=== PATIENT | male | born 1975 | race Caucasian/White ===

== ENCOUNTER → 2024-01-09 | Outpatient (CLI) | payer MEDICAID, SELFPAY | END | disposition home or self-care (01) | PROVIDERS: PCP Internal Medicine; Referring Provider Internal Medicine; Visit Provider Internal Medicine | DX: R29.818 Other symptoms and signs involving the nervous system (principal); G47.10 Hypersomnia, unspecified | CPT/HCPCS: 95806 ==

== ENCOUNTER → 2024-01-10 | Outpatient (CLI) | payer MEDICAID, SELFPAY | END | disposition home or self-care (01) | PROVIDERS: PCP Internal Medicine; Referring Provider Anesthesiology Pain Medicine; Visit Provider Anesthesiology Pain Medicine | DX: Z75.2 Other waiting period for investigation and treatment (principal) ==

== ENCOUNTER 2024-01-21 11:56 | Emergency (ER) | payer MEDICAID, SELFPAY ==
[2024-01-21 11:59] VITALS: BP 151/78; PULSE 72; RESP 14; TEMP 36.1; O2SAT 98
--- NOTE | 2024-01-21 14:28 | RAD_ITS ---
STUDY: X-RAY - LEFT SHOULDER REASON FOR EXAM: Male, 48 years old. Shoulder pain. TECHNIQUE: 4 view(s) of the shoulder. COMPARISON: None. FINDINGS: Normal glenohumeral articulation. Normal acromioclavicular joint. Normal acromion. Normal humeral head and visualized proximal humerus. The soft tissue structures are unremarkable. Normal visualized pulmonary apex. RAD/Shoulder min 2 Views IMPRESSION: Normal x-ray examination of the shoulder. Electronically Signed: Mateusz Fay MD at 14:58 EDT ,
--- NOTE | 2024-01-21 14:43 | EDS_ITS ---
HPI History of Present Illness Chief Complaint: Upper Extremity Injury [facility] Medical History GERD (gastroesophageal reflux disease) Cataracts, bilateral Hypocalcemia Hepatitis IBS (irritable bowel syndrome) Peritoneal dialysis catheter site infection CAD (coronary artery disease) Peritonitis Recurrent UTI Urinary retention Neuropathy COPD (chronic obstructive pulmonary disease) Hyperlipidemia due to type 2 diabetes mellitus Hypertension Dialysis patient Diabetes Home Medications ?Medication ?Instructions ?Recorded ?Last Taken ?Type diphenhydramine HCl 25 mg capsule 25 mg PO QHS 12/17/23 Unknown History (Banophen) docusate sodium 100 mg capsule 100 mg PO BID 12/17/23 Unknown History fluticasone 250 mcg-salmeterol 50 1 ea inhalation BID 12/17/23 Unknown History mcg/dose blistr powdr for inhalation (Advair Diskus) fluticasone propionate 50 intranasal 12/17/23 Unknown History mcg/actuation nasal spray,suspension gabapentin 300 mg capsule 300 mg PO QDAY 12/17/23 Unknown History handicap placard #1 ea 12/17/23 Unknown Rx insulin glargine 100 unit/mL (3 unit subcut 12/17/23 Unknown History mL) subcutaneous pen (Lantus Solostar U-100 Insulin) polyethylene glycol 3350 17 g PO QDAY 12/17/23 Unknown History gram/dose oral powder sodium chloride 0.65 % nasal spray spray intranasal 12/17/23 Unknown History aerosol (Deep Sea Nasal) albuterol sulfate 90 mcg/actuation 1 puff inhalation Q6-8H PRN 12/24/23 Unknown Rx aerosol inhaler shortness of breath or wheezing #8.5 grams amlodipine 10 mg tablet 10 mg PO QDAY #90 tabs 12/24/23 Unknown Rx aspirin 81 mg tablet,delayed 81 mg PO QDAY #90 tabs 12/24/23 Unknown Rx release atorvastatin 40 mg tablet 40 mg PO QDAY #90 tabs 12/24/23 Unknown Rx cyclobenzaprine 10 mg tablet 10 mg PO QHS #90 tabs 12/24/23 Unknown Rx lidocaine 4 % topical patch 1 patch topical DAILY PRN pain #30 12/24/23 Unknown Rx (Lidocaine Pain Relief) ea magnesium oxide 400 mg (241.3 mg 400 mg PO TID #90 tabs 12/24/23 Unknown Rx magnesium) tablet melatonin 5 mg tablet 5 mg PO QHS #90 tabs 12/24/23 Unknown Rx ondansetron HCl 4 mg tablet 4 mg PO DAILY #90 tabs 12/24/23 Unknown Rx pantoprazole 40 mg tablet,delayed 40 mg PO QDAY #90 tabs 12/24/23 Unknown Rx release tamsulosin 0.4 mg capsule 0.4 mg PO QDAY #90 caps 12/24/23 Unknown Rx ciprofloxacin HCl 250 mg tablet 250 mg PO QDAY #30 tabs 01/06/24 Unknown Rx acetaminophen 650 mg 650 mg PO Q8H PRN pain #90 tabs 01/09/24 Unknown Rx tablet,extended release (Tylenol Arthritis Pain) flash glucose scanning reader #1 ea 01/09/24 Unknown Rx (FreeStyle Bianca 2 [place]) flash glucose sensor (FreeStyle #1 ea 01/09/24 Unknown Rx Bianca 2 Sensor kit) miscellaneous medical supply 1 ea miscellaneous DIRECTED #6 01/09/24 Unknown Rx ea miscellaneous medical supply 1 ea miscellaneous DIRECTED 01/09/24 Unknown Rx bowel incontinence #1 ea incontinence pad, liner, disp #80 ea 01/14/24 Unknown Rx diclofenac sodium 1 % topical gel 2 g topical Q8H PRN PRN pain 7 01/21/24 Unknown Rx (Voltaren Arthritis Pain) days #100 grams Allergy/AdvReac Type Severity Reaction Status Date / Time No Known Allergies Allergy Verified 01/21/24 11:58 Family History Father Heart disease Hypertension Hyperlipidemia Grandmother Heart disease Diabetes Mother MVA (motor vehicle accident) Brother Cancer lymphoma Surgical History S/P bilateral BKA (below knee amputation) Port-A-Cath in place S/P arteriovenous (AV) fistula creation Hx of CABG Amputation leg, bilat H/O local excision of skin lesion H/O hernia repair Social History adopted: No household members: family and other details: niece and niece's number of children: 4 current occupational status: disabled pets and animals: Yes pets and animals: cat(s) and dog(s) Smoking Status: Former smoker quit date: 07/15/18 pack-years: 70 Tobacco: How many years used: 35 Electronic Cigarette Use: not used alcohol intake: former details: 07/15/2018 substance use type: does not use, former substance user Date of last use: 07/15/2006 and crack/cocaine frequency: does not exercise do you feel safe at home: Yes EXAM Physical Exam Const Vital Signs: 01/21/24 11:59 Temperature 96.9 F L Temperature Source Temporal Pulse Rate 72 Respiratory Rate 14 Blood Pressure 151/78 H Blood Pressure Mean 102 Pulse Ox 98 Oxygen Delivery Method Room Air [facility] MDM Narrative Medical decision making narrative: HISTORY OF PRESENT ILLNESS: 48-year-old male presents with concern for left shoulder pain. No shoulder pain for last 5 years. Notes having MRI done as an outpatient several months ago which showed several rotator cuff tears. Notes he has not been able to get into an orthopedic surgeon. REVIEW OF SYSTEMS: Pertinent positives: Left shoulder pain Pertinent negatives: Numbness, tingling, loss sensation or neck pain PHYSICAL EXAM: Nursing triage notes reviewed, Vital signs reviewed Constitutional: please see mdm HENT: MMM Eyes: Pupils equal round and reactive to light, Extraocular muscles intact Neck: No stridor, no JVD, full neck ROM Lungs: Clear to auscultation, No wheezing or rales. No increased work of breathing, no conversational dyspnea, no accessory muscle use, no nasal flaring. No respiratory distress noted Heart: Regular rate and rhythm, No murmurs, No rubs and No gallops, 2+ distal pulses (radial, femoral, posterior tibial) in all extremities Abdomen: Soft, there is no tenderness, rigidity, rebound or guarding, no obvious peritoneal signs, no palpable pulsatile abdominal masses, no auscultated abdominal bruit : No CVAT Extremities: No edema Neuro: Intact 5/5 strength with ok sign (median), intact finger abduction (ulnar) intact wrist extension (radial n). Intact sensation in the radial, ulnar, and median nerve distributions. Intact axiallary nerve function. Skin: No rash or lesions noted MEDICAL DECISION MAKING: Chief Complaint: Shoulder pain External records reviewed: Prescribed tramadol the beginning of November Factors affecting care: Hypertension, ESRD, bilateral below-knee amputation MDM Narrative: Patient was initially hemodynamically stable, afebrile and nontoxic-appearing. Exam without focal neurologic deficits, no obvious step-offs deformities, there is some weakness noted in shoulder abduction, flexion extension consistent with likely rotator cuff etiology. Patient had no fever, no limited range of motion, no palpable joint effusion or warmth to suggest septic arthritis. I considered the following differential diagnosis: Shoulder fracture, dislocation, cervical to colopathy, musculoskeletal injury, septic arthritis ALL IMAGES (IF OBTAINED) HAVE BEEN PERSONALLY REVIEWED AND INTERPRETED BY MYSELF. X-ray of the patient's left shoulder was read reviewed myself shows no evidence of obvious bony fracture or dislocation. No clear etiology with the patient's complaint could be ascertained in the emergency department specifically no evidence of septic arthritis, shoulder fracture or dislocation. The patient and/or family, caregivers express understanding. The patient and/or family, caregivers agrees with the plan. Shared decision making: I will have a discussion with the patient and or visitors regarding risk/benefits of further testing or admission. They will be made aware of of the risk/benefits inherent in this decision they will be given the opportunity to voice understanding. Total critical care time today provided was at least 0 minutes. This excludes separately billable procedures. Critical care time (if documented) is secondary to the patient having high probability of clinically significant/life threatening deterioration in the patient's condition which required my urgent intervention. Impression: 1. Acute on chronic left shoulder pain 2. History of end-stage renal disease 3. Rotator cuff tendinopathy Dispo: Discharge home This note was generated with [employer] dictation software. It may contain incorrect words, spelling, and punctuation that were not noted in review of the chart prior to signing. Discharge Plan Triage Chief Complaint: Upper Extremity Injury ED Provider: [place] Dx/Rx/DC Orders Instructions: ED Shoulder Pain, Uncertain Cause Prescriptions: New diclofenac sodium [Voltaren Arthritis Pain] 1 % gel 2 g topical Q8H PRN PRN (Reason: pain) 7 Days Qty: 100 0RF No Action fluticasone propion-salmeterol [Advair Diskus] 250-50 mcg/dose blister with device 1 ea inhalation BID Deep Sea Nasal 0.65 % aerosol,spray intranasal Patient Comments: [NO ORIGINAL SIG] diphenhydramine HCl [Banophen] 25 mg capsule 25 mg PO QHS docusate sodium 100 mg capsule 100 mg PO BID insulin glargine [Lantus Solostar U-100 Insulin] 100 unit/mL (3 mL) insulin pen subcut fluticasone propionate 50 mcg/actuation spray,suspension intranasal Patient Comments: [NO ORIGINAL SIG] gabapentin 300 mg capsule 300 mg PO QDAY (DME) handicap placard See Rx Instructions .ROUTE .MEDSUPPLY Qty: 1 0RF Rx Instructions: Length of time: 5 years Impaired physical mobility: Z74.09 polyethylene glycol 3350 17 gram/dose powder PO QDAY (DME) FreeStyle Bianca 2 Sensor Kit See Rx Instructions .Route Qty: 1 5RF Rx Instructions: 1-2 times daily and as needed (DME) FreeStyle Bianca 2 [place] Misc See Rx Instructions .Route Qty: 1 5RF Rx Instructions: 1-2 times daily and as needed acetaminophen [Tylenol Arthritis Pain] 650 mg tablet extended release 650 mg PO Q8H PRN (Reason: pain) Qty: 90 1RF miscellaneous medical supply Kit 1 ea miscellaneous DIRECTED Qty: 1 0RF Rx Instructions: Bedpan Diagnosis: Fecal incontinence R15.9 miscellaneous medical supply Kit 1 ea miscellaneous DIRECTED Qty: 6 0RF Rx Instructions: Nicholas lift sling Diagnosis: Below-knee amputation of both lower extremities S88.111D/S88.112D albuterol sulfate 90 mcg/actuation HFA aerosol inhaler 1 puff inhalation Q6-8H PRN (Reason: shortness of breath or wheezing) Qty: 8.5 0RF amlodipine 10 mg tablet 10 mg PO QDAY Qty: 90 0RF aspirin 81 mg tablet,delayed release (DR/EC) 81 mg PO QDAY Qty: 90 0RF atorvastatin 40 mg tablet 40 mg PO QDAY Qty: 90 0RF cyclobenzaprine 10 mg tablet 10 mg PO QHS Qty: 90 0RF lidocaine [Lidocaine Pain Relief] 4 % adhesive patch,medicated 1 patch topical DAILY PRN (Reason: pain) Qty: 30 0RF magnesium oxide 400 mg (241.3 mg magnesium) tablet 400 mg PO TID Qty: 90 0RF melatonin 5 mg tablet 5 mg PO QHS Qty: 90 0RF ondansetron HCl 4 mg tablet 4 mg PO DAILY Qty: 90 0RF Rx Instructions: Patient takes before dialysis; Saturday, Saturday, Saturday pantoprazole 40 mg tablet,delayed release (DR/EC) 40 mg PO QDAY Qty: 90 0RF tamsulosin 0.4 mg capsule 0.4 mg PO QDAY Qty: 90 0RF ciprofloxacin HCl 250 mg tablet 250 mg PO QDAY Qty: 30 0RF (DME) incontinence pad, liner, disp Pad See Rx Instructions .Route Qty: 80 0RF Rx Instructions: As directed Primary Care Provider: Bella Oneal Referrals: Vida Smith MD [Med Staff - Active Staff] - Activity Restrictions/Additional Instructions: Thank you for trusting us with your care today! Please take Tylenol (2 pills, 650 mg), ibuprofen (2 pills, 400 mg) every 6 hours as needed for pain and fever control. Please return to the emergency department if your symptoms change or worsen. Please follow with your primary care physician for further outpatient evaluation and management. Print Language: Croatian Disposition Disposition: Home, Self Care Discharge Date/Time: 01/21/24 16:28
[2024-01-21 14:58] VITALS: O2SAT 93
[2024-01-21] MEDS: Ibuprofen 200 MG Tablet 400 MG PO (15:22)
[2024-01-21] MEDS: oxyCODONE 5 MG Tablet PO (15:23)
[2024-01-21 15:53] VITALS: BP 143/85; PULSE 65; RESP 16; TEMP 36.7; O2SAT 98
== END 2024-01-21 16:28 | disposition home or self-care (01) ==
LOC: ED 15:18
PROVIDERS: Emergency Provider Emergency Medicine; PCP Internal Medicine; Visit Provider Emergency Medicine
DX: M25.512 Pain in left shoulder (principal); N18.6 End stage renal disease; Z89.511 Acquired absence of right leg below knee; Z89.512 Acquired absence of left leg below knee; J44.9 Chronic obstructive pulmonary disease, unspecified; E11.40 Type 2 diabetes mellitus with diabetic neuropathy, unspecified; E11.22 Type 2 diabetes mellitus with diabetic chronic kidney disease; G89.29 Other chronic pain; I25.10 Atherosclerotic heart disease of native coronary artery without angina pectoris; Z95.1 Presence of aortocoronary bypass graft; Z87.891 Personal history of nicotine dependence
CPT/HCPCS: 73030; 99283

== ENCOUNTER 2024-02-09 15:14 | Emergency (ER) | payer MEDICAID, SELFPAY ==
[2024-02-09] VITALS (7 sets, daily range): BP systolic 124–149; BP diastolic 71–89; PULSE 72–75; RESP 18–25; TEMP 36.6–37.1; O2SAT 94–99; BMI 47.6
--- NOTE | 2024-02-09 15:36 | EKG12_ITS ---
Test Reason : SOB Blood Pressure : / mmHG Vent. Rate : 075 BPM Atrial Rate : 075 BPM P-R Int : 220 ms QRS Dur : 182 ms QT Int : 510 ms P-R-T Axes : 076 -58 024 degrees QTc Int : 569 ms Sinus rhythm with 1st degree A-V block Left axis deviation Right bundle branch block Abnormal ECG Confirmed by GIANNI TO, AFUA ([id number]), avid editor MOHAMUD RIVERA ([id number]) on 02/11/2024 2:27:40 PM Referred By: SANDRO/WOOD Confirmed By:DANIELA ARCHER MD
--- NOTE | 2024-02-09 15:36 | RAD_ITS ---
STUDY: X-RAY CHEST REASON FOR EXAM: Male, 48 years old. shortness of breath TECHNIQUE: AP portable COMPARISON: None. FINDINGS: Postop change status post median sternotomy and CABG. Mild right lower lobe atelectasis or infiltrate and discoid atelectasis in the lingula.. There is no demonstrated pleural abnormality. Heart is enlarged.. Normal mediastinum and tameka. Normal visualized pulmonary arteries. Normal visualized aortic arch and descending thoracic aorta. Normal visualized thoracic spine. Normal visualized ribs, clavicles, and shoulders. There is no demonstrated abnormality of the visualized soft tissue structures of the upper abdomen. RAD/Chest 1 View (Portable) IMPRESSION: Mild right lower lobe atelectasis or infiltrate and discoid atelectasis of the lingula Electronically Signed: Santana Saab MD at 16:29 EDT ,
--- NOTE | 2024-02-09 15:39 | ED.RN ---
NO OLD EKGS
--- NOTE | 2024-02-09 15:39 | EX.ED.DYSGE1 ---
HPI <DARIEN Mondragon - Last Filed: 02/09/24 17:31> History of Present Illness Chief Complaint: Shortness of Breath Narrative Narrative: Patient is a 48-year-old male with history of end-stage renal disease, diabetes, COPD, bilateral [id number] amputee who is nonambulatory who lives at home with his friend and his . Patient is a originally from here however lived in [place] from 2020 until 3 months ago. Patient was in a custodial down there. He wanted to do something different so he got out of the custodial and came here, and he thinks that he made a mistake. Patient states he has been short of breath for the last 3 months, it was slightly more today. He does have history of chronic shoulder pain, states it was bothering him so bad on Saturday that he could not finish his dialysis and was finished 30 minutes early. Patient states that the shortness of breath is worse to go to the toilet is here for evaluation. Denies any fevers or chills. PFS <DARIEN Mondragon - Last Filed: 02/09/24 17:31> [facility] Medical History GERD (gastroesophageal reflux disease) Cataracts, bilateral Hypocalcemia Hepatitis IBS (irritable bowel syndrome) Peritoneal dialysis catheter site infection CAD (coronary artery disease) Peritonitis Recurrent UTI Urinary retention Neuropathy COPD (chronic obstructive pulmonary disease) Hyperlipidemia due to type 2 diabetes mellitus Hypertension Dialysis patient Diabetes Home Medications ?Medication ?Instructions ?Recorded ?Last Taken ?Type diphenhydramine HCl 25 mg capsule 25 mg PO QHS 12/17/23 Unknown History (Banophen) docusate sodium 100 mg capsule 100 mg PO BID 12/17/23 Unknown History fluticasone 250 mcg-salmeterol 50 1 ea inhalation BID 12/17/23 Unknown History mcg/dose blistr powdr for inhalation (Advair Diskus) fluticasone propionate 50 intranasal 12/17/23 Unknown History mcg/actuation nasal spray,suspension gabapentin 300 mg capsule 300 mg PO QDAY 12/17/23 Unknown History handicap placard #1 ea 12/17/23 Unknown Rx insulin glargine 100 unit/mL (3 unit subcut 12/17/23 Unknown History mL) subcutaneous pen (Lantus Solostar U-100 Insulin) polyethylene glycol 3350 17 g PO QDAY 12/17/23 Unknown History gram/dose oral powder sodium chloride 0.65 % nasal spray spray intranasal 12/17/23 Unknown History aerosol (Deep Sea Nasal) amlodipine 10 mg tablet 10 mg PO QDAY #90 tabs 12/24/23 Unknown Rx aspirin 81 mg tablet,delayed 81 mg PO QDAY #90 tabs 12/24/23 Unknown Rx release atorvastatin 40 mg tablet 40 mg PO QDAY #90 tabs 12/24/23 Unknown Rx cyclobenzaprine 10 mg tablet 10 mg PO QHS #90 tabs 12/24/23 Unknown Rx lidocaine 4 % topical patch 1 patch topical DAILY PRN pain #30 12/24/23 Unknown Rx (Lidocaine Pain Relief) ea magnesium oxide 400 mg (241.3 mg 400 mg PO TID #90 tabs 12/24/23 Unknown Rx magnesium) tablet melatonin 5 mg tablet 5 mg PO QHS #90 tabs 12/24/23 Unknown Rx ondansetron HCl 4 mg tablet 4 mg PO DAILY #90 tabs 12/24/23 Unknown Rx pantoprazole 40 mg tablet,delayed 40 mg PO QDAY #90 tabs 12/24/23 Unknown Rx release tamsulosin 0.4 mg capsule 0.4 mg PO QDAY #90 caps 12/24/23 Unknown Rx acetaminophen 650 mg 650 mg PO Q8H PRN pain #90 tabs 01/09/24 Unknown Rx tablet,extended release (Tylenol Arthritis Pain) flash glucose scanning reader #1 ea 01/09/24 Unknown Rx (FreeStyle Bianca 2 [place]) flash glucose sensor (FreeStyle #1 ea 01/09/24 Unknown Rx Bianca 2 Sensor kit) miscellaneous medical supply 1 ea miscellaneous DIRECTED #6 01/09/24 Unknown Rx ea miscellaneous medical supply 1 ea miscellaneous DIRECTED 01/09/24 Unknown Rx bowel incontinence #1 ea incontinence pad, liner, disp #80 ea 01/14/24 Unknown Rx diclofenac sodium 1 % topical gel 2 g topical Q8H PRN PRN pain 7 01/21/24 Unknown Rx (Voltaren Arthritis Pain) days #100 grams albuterol sulfate 90 mcg/actuation 1 puff inhalation Q6-8H PRN 01/27/24 Unknown Rx aerosol inhaler shortness of breath or wheezing #8.5 grams Allergy/AdvReac Type Severity Reaction Status Date / Time No Known Allergies Allergy Verified 02/09/24 15:14 Family History Father Heart disease Hypertension Hyperlipidemia Grandmother Heart disease Diabetes Mother MVA (motor vehicle accident) Brother Cancer lymphoma Surgical History S/P bilateral BKA (below knee amputation) Port-A-Cath in place S/P arteriovenous (AV) fistula creation Hx of CABG Amputation leg, bilat H/O local excision of skin lesion H/O hernia repair Social History adopted: No household members: family and other details: niece and niece's number of children: 4 current occupational status: disabled pets and animals: Yes pets and animals: cat(s) and dog(s) Smoking Status: Former smoker quit date: 07/15/18 pack-years: 70 Tobacco: How many years used: 35 Electronic Cigarette Use: not used alcohol intake: former details: 07/15/2018 substance use type: does not use, former substance user Date of last use: 07/15/2006 and crack/cocaine frequency: does not exercise do you feel safe at home: Yes ROS <DARIEN Mondragon - Last Filed: 02/09/24 17:31> ROS ED ROS Narrative Constitutional: Negative for fever, chills, weight loss, weakness Eyes: Negative for vision loss, vision change, double vision ENT: Negative for any sore throat, ear pain, congestion Cardiovascular: Negative for any chest pain, tightness, palpitations Respiratory: Negative for any cough, sputum production, hemoptysis, orthopnea. Positive for dyspnea, dyspnea on exertion Gastrointestinal: Negative for any abdominal pain, nausea, vomiting, diarrhea, constipation, blood in stool, blood in vomit : Negative for any urinary frequency, dysuria, retention, blood in urine Muscle skeletal: Negative for any neck pain, back pain Neurological: Negative for any headache, syncope, dizziness Skin: Negative for any rashes, itching, abrasions, lacerations Psychiatric: Negative for any depression, anxiety, stress, suicidal ideation, homicidal ideation Hematologic: Negative for any excessive bruising, easy bleeding EXAM <DARIEN Mondragon - Last Filed: 02/09/24 17:31> Physical Exam Narrative Exam Narrative: Vital signs reviewed. Patient alert and orient x 4. HEET: Head normocephalic atraumatic, TMs clear bilaterally. Posterior pharynx is clear, moist mucous membranes. Nares clear bilaterally. Neck: Supple with no lymphadenopathy or tenderness. No signs of meningismus. Cardiac: Regular rate and rhythm no murmurs gallops or rubs, equal peripheral pulses bilaterally. Respiratory: Diminished lung sounds at bilateral bases. No chest tenderness. Abdomen: Soft, nontender, nondistended. No abdominal bruit or pulsatile masses. No hepatosplenomegaly Extremities: patient has bilateral [id number] amputations to both legs. Muscle wasting however he states this is chronic. Neuro: Cranial nerves II through XII intact, no focal neurological deficits. Skin: Clean dry and intact with no rash, purpura, petechiae, vesicles or pustules. Backs/flank: No CVA tenderness, no midline spinal tenderness, no deformity. Psych: Normal mood and affect. No SI, HI or acute psychosis. Const Vital Signs: 02/09/24 15:14 02/09/24 15:16 02/09/24 15:58 Temperature 98.8 F 98.8 F Temperature Source Temporal Temporal Pulse Rate 72 72 Respiratory Rate 25 H 25 H Respiratory Effort Normal Short of Breath Labored Respiratory Depth Normal Respiratory Pattern Normal Blood Pressure 149/89 H 149/89 H Blood Pressure Mean 109 109 Pulse Ox 99 99 Oxygen Delivery Method Room Air Room Air Room Air 02/09/24 16:16 02/09/24 16:44 02/09/24 17:00 Temperature 97.8 F 97.8 F Temperature Source Oral Oral Pulse Rate 75 73 72 Respiratory Rate 19 H 18 22 H Respiratory Effort Respiratory Depth Respiratory Pattern Normal Blood Pressure 124/71 H 148/71 H Blood Pressure Mean 88 96 Pulse Ox 94 94 Oxygen Delivery Method Room Air Room Air 02/09/24 17:13 Temperature 98 F Temperature Source Pulse Rate 72 Respiratory Rate 21 H Respiratory Effort Respiratory Depth Respiratory Pattern Blood Pressure 148/71 H Blood Pressure Mean 96 Pulse Ox 96 Oxygen Delivery Method Positive well nourished and well developed General Appearance ED: well developed <Dr. Jason Morris MD - Last Filed: 02/09/24 16:39> Physical Exam Const Vital Signs: 02/09/24 15:14 02/09/24 15:16 02/09/24 15:58 Temperature 98.8 F 98.8 F Temperature Source Temporal Temporal Pulse Rate 72 72 Respiratory Rate 25 H 25 H Respiratory Effort Normal Short of Breath Labored Respiratory Depth Normal Respiratory Pattern Normal Blood Pressure 149/89 H 149/89 H Blood Pressure Mean 109 109 Pulse Ox 99 99 Oxygen Delivery Method Room Air Room Air Room Air 02/09/24 16:16 02/09/24 16:44 02/09/24 17:00 Temperature 97.8 F 97.8 F Temperature Source Oral Oral Pulse Rate 75 73 72 Respiratory Rate 19 H 18 22 H Respiratory Effort Respiratory Depth Respiratory Pattern Normal Blood Pressure 124/71 H 148/71 H Blood Pressure Mean 88 96 Pulse Ox 94 94 Oxygen Delivery Method Room Air Room Air 02/09/24 17:13 Temperature 98 F Temperature Source Pulse Rate 72 Respiratory Rate 21 H Respiratory Effort Respiratory Depth Respiratory Pattern Blood Pressure 148/71 H Blood Pressure Mean 96 Pulse Ox 96 Oxygen Delivery Method [facility] <DARIEN Mondragon - Last Filed: 02/09/24 17:31> [facility] Lab Data Labs: Laboratory Results - last 24 hr 02/09/24 15:45 WBC 6.7 RBC 2.94 L Hgb 8.1 L Hct 25.1 L MCV 85.4 MCH 27.6 MCHC 32.3 RDW Std Deviation 60.3 H RDW Coeff of Faheem 19.2 H Plt Count 194 MPV 8.7 Immature Gran % (Auto) 0.300 Neut % (Auto) 77.4 H Lymph % (Auto) 14.6 L Mcdonough % (Auto) 5.6 Eos % (Auto) 1.5 Baso % (Auto) 0.6 Absolute Neuts (auto) 5.2 Absolute Lymphs (auto) 0.97 Nucleated RBC % 0 Sodium 130 L Potassium 4.0 Chloride 94 L Carbon Dioxide 23.0 Anion Gap 13 BUN 43 H Creatinine 4.67 H Estim Creat Clear Calc 19.70 Est GFR (MDRD) Af Amer 17 L Est GFR (MDRD) Non-Af 14 L BUN/Creatinine Ratio 9.2 L Glucose 115 H Calcium 8.5 Radiography Diagnostic Testing: Clinical Impression(s) from Imaging Studies Chest X-Ray 02/09/24 15:36 IMPRESSION: Mild right lower lobe atelectasis or infiltrate and discoid atelectasis of the lingula Electronically Signed: Santana Saab MD at 16:29 EDT Reading Location ID and State: [facility] / [place] Tel , Service support , EKG EKG shows a sinus rhythm with first-degree block,: Attestation: I personally reviewed and interpreted this EKG as follows: Interpretation: Sinus Rhythm Comments: Sinus rhythm with first-degree AV block, rate of 75 bpm, CO interval 220 ms, QRS duration 182 ms Treatment and Re-Evaluation :: Differential diagnosis includes however is not limited to: Fluid overload, community-acquired pneumonia, COVID-19 influenza, RSV, other viral syndrome Patient appears to be in no obvious distress, patient is able speak complete sentences, acting appropriate. Presenting to the emergency department for shortness of breath has been ongoing for 3 months. At this time, speaking with the patient, the ultimate goal for him is to go back to [place] to that custodial. He does have appointments for multiple facilities around the area. Patient will receive a chest x-ray, laboratory values as well as a urinalysis. COVID flu, influenza, RSV swab will also be obtained. Patient's COVID flu RSV was negative, patient's chest x-ray showed mild right lower lobe atelectasis, no acute process. Patient's laboratory values show a normal CBC, patient does have chronic anemia. White blood cell count 6.7, hemoglobin 8.1. Patient's sodium 130, creatinine is 4.67, is consistent with end-stage renal disease, he does receive dialysis tomorrow. Patient did receive breathing treatments, this did improve the patient's work of breathing. Patient could be having a reactive airway, asthma-like exacerbation. Patient used to be on nebulizers prior to discharge from the custodial. Patient be given Kenalog IM and dose here and will follow-up outpatient. All questions answered, stable for discharge. <Dr. Jason Morris MD - Last Filed: 02/09/24 16:39> [facility] Narrative Medical decision making narrative: I have personally performed a face to face assessment of the patient and have reviewed the RUDOLPH Note. I performed a substantive portion of the visit including all aspects of the following. My zimmerman findings include: History is patient states has been short of breath for several months. He had bilateral leg amputations due to complications of diabetes, he was in a custodial in [place] states he thought he could come back here 3 months ago and live but he states I am wrong I need to go back to a custodial in [place] so he has an assessment for that tomorrow. For the last week he feels like his shortness of breath been worsening feels like it is wheezing like asthma. He states he was post to be discharged with oxygen and a nebulizer machine when he left the custodial but he was not, so has been without it when he goes to dialysis and gets oxygen and feels better and when he uses his ProAir it is better temporarily. He denies any cough, fevers or chills, chest pain, or edema in his stumps. Exam is lungs clear to auscultation. Heart regular no murmurs, conversive in full sentences. Well-appearing. Medical Decison Making Labs reviewed, chest x-ray 1 view shows chronic changes but no acute infiltrates or pulmonary edema on my interpretation. Will give him a DuoNeb, offer him some steroids to see if that helps. He is not hypoxic right now and well-appearing with normal vital signs. Other additions or changes: [None] Lab Data Labs: Laboratory Results - last 24 hr 02/09/24 15:45 WBC 6.7 RBC 2.94 L Hgb 8.1 L Hct 25.1 L MCV 85.4 MCH 27.6 MCHC 32.3 RDW Std Deviation 60.3 H RDW Coeff of Faheem 19.2 H Plt Count 194 MPV 8.7 Immature Gran % (Auto) 0.300 Neut % (Auto) 77.4 H Lymph % (Auto) 14.6 L Mcdonough % (Auto) 5.6 Eos % (Auto) 1.5 Baso % (Auto) 0.6 Absolute Neuts (auto) 5.2 Absolute Lymphs (auto) 0.97 Nucleated RBC % 0 Sodium 130 L Potassium 4.0 Chloride 94 L Carbon Dioxide 23.0 Anion Gap 13 BUN 43 H Creatinine 4.67 H Estim Creat Clear Calc 19.70 Est GFR (MDRD) Af Amer 17 L Est GFR (MDRD) Non-Af 14 L BUN/Creatinine Ratio 9.2 L Glucose 115 H Calcium 8.5 Radiography Diagnostic Testing: Clinical Impression(s) from Imaging Studies Chest X-Ray 02/09/24 15:36 IMPRESSION: Mild right lower lobe atelectasis or infiltrate and discoid atelectasis of the lingula Electronically Signed: Santana Saab MD at 16:29 EDT Reading Location ID and State: [address] [place] [address] Tel , Service support , Discharge Plan Triage Chief Complaint: Shortness of Breath ED Midlevel Provider: Benny Knight ED Provider: Jason Morris Dx/Rx/DC Orders Clinical Impression: ESRD on hemodialysis, Asthma exacerbation with COPD (chronic obstructive pulmonary disease) Instructions: Asthma and COPD, Asthma Prescriptions: No Action fluticasone propion-salmeterol [Advair Diskus] 250-50 mcg/dose blister with device 1 ea inhalation BID Deep Sea Nasal 0.65 % aerosol,spray intranasal Patient Comments: [NO ORIGINAL SIG] diphenhydramine HCl [Banophen] 25 mg capsule 25 mg PO QHS docusate sodium 100 mg capsule 100 mg PO BID insulin glargine [Lantus Solostar U-100 Insulin] 100 unit/mL (3 mL) insulin pen subcut fluticasone propionate 50 mcg/actuation spray,suspension intranasal Patient Comments: [NO ORIGINAL SIG] gabapentin 300 mg capsule 300 mg PO QDAY (DME) handicap placard See Rx Instructions .ROUTE .MEDSUPPLY Qty: 1 0RF Rx Instructions: Length of time: 5 years Impaired physical mobility: Z74.09 polyethylene glycol 3350 17 gram/dose powder PO QDAY (DME) FreeStyle Bianca 2 Sensor Kit See Rx Instructions .Route Qty: 1 5RF Rx Instructions: 1-2 times daily and as needed (DME) FreeStyle Bianca 2 [place] Misc See Rx Instructions .Route Qty: 1 5RF Rx Instructions: 1-2 times daily and as needed acetaminophen [Tylenol Arthritis Pain] 650 mg tablet extended release 650 mg PO Q8H PRN (Reason: pain) Qty: 90 1RF miscellaneous medical supply Kit 1 ea miscellaneous DIRECTED Qty: 1 0RF Rx Instructions: Bedpan Diagnosis: Fecal incontinence R15.9 miscellaneous medical supply Kit 1 ea miscellaneous DIRECTED Qty: 6 0RF Rx Instructions: Nicholas lift sling Diagnosis: Below-knee amputation of both lower extremities S88.111D/S88.112D diclofenac sodium [Voltaren Arthritis Pain] 1 % gel 2 g topical Q8H PRN PRN (Reason: pain) 7 Days Qty: 100 0RF amlodipine 10 mg tablet 10 mg PO QDAY Qty: 90 0RF aspirin 81 mg tablet,delayed release (DR/EC) 81 mg PO QDAY Qty: 90 0RF atorvastatin 40 mg tablet 40 mg PO QDAY Qty: 90 0RF cyclobenzaprine 10 mg tablet 10 mg PO QHS Qty: 90 0RF lidocaine [Lidocaine Pain Relief] 4 % adhesive patch,medicated 1 patch topical DAILY PRN (Reason: pain) Qty: 30 0RF magnesium oxide 400 mg (241.3 mg magnesium) tablet 400 mg PO TID Qty: 90 0RF melatonin 5 mg tablet 5 mg PO QHS Qty: 90 0RF ondansetron HCl 4 mg tablet 4 mg PO DAILY Qty: 90 0RF Rx Instructions: Patient takes before dialysis; Saturday, Saturday, Saturday pantoprazole 40 mg tablet,delayed release (DR/EC) 40 mg PO QDAY Qty: 90 0RF tamsulosin 0.4 mg capsule 0.4 mg PO QDAY Qty: 90 0RF (DME) incontinence pad, liner, disp Pad See Rx Instructions .Route Qty: 80 0RF Rx Instructions: As directed albuterol sulfate 90 mcg/actuation HFA aerosol inhaler 1 puff inhalation Q6-8H PRN (Reason: shortness of breath or wheezing) Qty: 8.5 2RF Primary Care Provider: Bella Oneal Referrals: Bella Oneal MD [Primary Care Provider] - Activity Restrictions/Additional Instructions: Please return for any worsening symptoms. Print Language: Beninese Disposition Disposition: Home, Self Care
[2024-02-09 15:53] LABS: Absolute Lymphocyte Count 0.97 X10^3/uL (0.83-4.51); Absolute Neutrophil Count 5.2 X10^3/uL (2.0-7.7); Basophil# 0.04 X10^3/uL; Basophil% 0.6 % (0-1); Eosinophils% 1.5 % (0-5); Hematocrit 25.1 % (40-54); Hemoglobin 8.1 g/dL (13.0-16.5); Lymphocyte # 0.97 X10^3/ul (0.83-4.51); Lymphocyte % 14.6 % (19-41); Mean Corp Hgb Conc 32.3 g/dL (32-36); Mean Corpuscular Hgb 27.6 pg (27.0-32.0); Mean Corpuscular Volume 85.4 fL (80-94); Mean Platelet Vol. 8.7 fl (6.2-12.0); Monocyte# 0.37 X10^3/uL; Monocyte% 5.6 % (0-10); NRBC Flagged by Analyzer 0 % (0-5); Neutrophil # 5.15 X10^3/uL (2.7-7.7); Neutrophil % 77.4 % (47-70); Platelet Count 194 K/mm3 (150-450); RBC Distribution Width CV 19.2 % (11.6-14.6); RBC Distribution Width SD 60.3 fl (35.1-43.9); Red Blood Count 2.94 M/mm3 (4.6-6.2); White Blood Count 6.7 K/mm3 (4.4-11.0)
[2024-02-09 16:12] LABS: Anion Gap 13 (5-15); BUN 43 mg/dL (7-18); BUN/Creat Ratio 9.2 RATIO (10-20); Calcium,Total 8.5 mg/dL (8.5-10.1); Chloride 94 mmol/L (98-107); Creatinine, Serum 4.67 mg/dL (0.70-1.30); EST Glomerular Filtration Rate 14 mL/min (>60); Est Glom Filt Rate - Afr Amer 17 mL/min (>60); Glucose 115 mg/dL (74-106); Sodium Level 130 mmol/L (136-145)
[2024-02-09] MEDS: Ipratropium/Albuterol Sulfate 3 ML AMPUL.NEB INHALATION (16:43)
[2024-02-09] MEDS: Triamcinolone Acetonide 40 MG/ML Vial IM (17:31)
== END 2024-02-09 17:47 | disposition home or self-care (01) ==
PROVIDERS: Nurse Practitioner; Emergency Provider Emergency Medicine; PCP Internal Medicine; Visit Provider Emergency Medicine
DX: E11.22 Type 2 diabetes mellitus with diabetic chronic kidney disease (principal); I12.0 Hypertensive chronic kidney disease with stage 5 chronic kidney disease or end stage renal disease; N18.6 End stage renal disease; J44.1 Chronic obstructive pulmonary disease with (acute) exacerbation; E11.40 Type 2 diabetes mellitus with diabetic neuropathy, unspecified; I25.10 Atherosclerotic heart disease of native coronary artery without angina pectoris; Z99.2 Dependence on renal dialysis; Z87.891 Personal history of nicotine dependence
CPT/HCPCS: 71045; 80048; 85025; 87631; 93005; 94640; 96372; 99282; A4216

== ENCOUNTER → 2024-11-06 | Outpatient (CLI) | payer MEDICAID, SELFPAY ==
[2024-11-06 19:20] LABS: Absolute Lymphocyte Count 1.39 X10^3/uL (0.83-4.51); Absolute Neutrophil Count 6.9 X10^3/uL (2.0-7.7); Basophil# 0.07 X10^3/uL; Basophil% 0.8 % (0-1); Eosinophil# 0.11 X10^3/uL; Eosinophils% 1.2 % (0-5); Hemoglobin 11.4 g/dL (13.0-16.5); Lymphocyte # 1.39 X10^3/ul (0.83-4.51); Lymphocyte % 15.4 % (19-41); Mean Corp Hgb Conc 31.7 g/dL (32-36); Mean Corpuscular Hgb 29.5 pg (27.0-32.0); Mean Platelet Vol. 9.6 fl (6.2-12.0); Monocyte% 5.5 % (0-10); NRBC Flagged by Analyzer 0 % (0-5); Neutrophil # 6.94 X10^3/uL (2.7-7.7); Neutrophil % 76.7 % (47-70); Platelet Count 234 K/mm3 (150-450); RBC Distribution Width CV 16.4 % (11.6-14.6); RBC Distribution Width SD 54.6 fl (35.1-43.9); Red Blood Count 3.87 M/mm3 (4.6-6.2); White Blood Count 9.1 K/mm3 (4.4-11.0)
[2024-11-06 20:30] LABS: BUN 14 mg/dL (4-19)
[2024-11-06 20:35] LABS: BUN 49 mg/dL (4-19); Potassium 5.2 mmol/L (3.3-5.1)
== END | disposition home or self-care (01) ==
LOC: LABSPEC 18:31
PROVIDERS: PCP Internal Medicine; Visit Provider Internal Medicine Nephrology
DX: Z00.00 Encounter for general adult medical examination without abnormal findings (principal)
CPT/HCPCS: 84132; 84520; 85025

== ENCOUNTER 2024-12-30 04:39 | Emergency (ER) | payer MEDICAID, SELFPAY ==
[2024-12-30] VITALS (16 sets, daily range): BP systolic 104–153; BP diastolic 70–103; PULSE 82–112; RESP 15–28; TEMP 36.8–37.2; O2SAT 63–100; BMI 51.8
--- NOTE | 2024-12-30 05:22 | EX.ED.DYSGE1 ---
HPI <Dr. Poppy Singh DO - Last Filed: 12/30/24 08:10> History of Present Illness Chief Complaint: Alt LOC Informant: patient Narrative Narrative: Patient is a 49-year-old male with significant past medical history including end-stage renal disease on hemodialysis (Saturday with last dialysis on Saturday), sleep apnea (states he does not wear BiPAP/CPAP), coronary artery disease, hypertension, diabetes, COPD, bilateral BKA and recent diagnosis of loculated pleural effusion with questionable mass. He is presenting from nursing recently ([facility]) for concern of altered mental status. Per report patient was hard to arouse and borderline unresponsive. Per EMS patient is answering questions appropriately. Patient tells me that he has been complaining of worsening pain in his left ear for the past 24 hours. Denies any drainage. States for the past month he has had fullness in his right ear. Also notes that he has had a wet cough but cannot get anything up for the past month. He states he had a prior chest x-ray which was negative. He denies any other complaints or concerns at this time. Not report any fevers. Does not wear oxygen normally. Chart review shows that patient was recently saw cardiology on 12/08/2024 for routine follow-up. Was noted to be in atrial fibrillation was not started on anticoagulation because of bleeding risk associated with dialysis. Patient states he also recently had a biopsy of his left thigh it was diagnosed with melanoma. [facility] <Dr. Poppy Singh DO - Last Filed: 12/30/24 08:10> [facility] Medical History Left shoulder pain Sleep apnea Unspecified viral hepatitis B without hepatic coma Hypotension Tachycardia GERD (gastroesophageal reflux disease) Cataracts, bilateral Hypocalcemia Hepatitis IBS (irritable bowel syndrome) Peritoneal dialysis catheter site infection CAD (coronary artery disease) Peritonitis Recurrent UTI Urinary retention Neuropathy COPD (chronic obstructive pulmonary disease) Hyperlipidemia due to type 2 diabetes mellitus Hypertension Dialysis patient Diabetes Home Medications Medication Instructions Recorded Last Taken Type diphenhydramine HCl 25 mg capsule 25 mg PO QHS 12/17/23 Unknown History (Banophen) fluticasone 250 mcg-salmeterol 50 1 ea inhalation BID 12/17/23 Unknown History mcg/dose blistr powdr for inhalation (Advair Diskus) fluticasone propionate 50 intranasal 12/17/23 Unknown History mcg/actuation nasal spray,suspension gabapentin 300 mg capsule 300 mg PO QDAY 12/17/23 Unknown History handicap placard #1 ea 12/17/23 Unknown Rx sodium chloride 0.65 % nasal spray spray intranasal 12/17/23 Unknown History aerosol (Deep Sea Nasal) atorvastatin 40 mg tablet 40 mg PO QDAY #90 tabs 12/24/23 Unknown Rx cyclobenzaprine 10 mg tablet 10 mg PO QHS #90 tabs 12/24/23 Unknown Rx lidocaine 4 % topical patch 1 patch topical DAILY PRN pain #30 12/24/23 Unknown Rx (Lidocaine Pain Relief) ea magnesium oxide 400 mg (241.3 mg 400 mg PO TID #90 tabs 12/24/23 Unknown Rx magnesium) tablet melatonin 5 mg tablet 5 mg PO QHS #90 tabs 12/24/23 Unknown Rx tamsulosin 0.4 mg capsule 0.4 mg PO QDAY #90 caps 12/24/23 Unknown Rx flash glucose scanning reader #1 ea 01/09/24 Unknown Rx (FreeStyle Bianca 2 [place]) flash glucose sensor (FreeStyle #1 ea 01/09/24 Unknown Rx Bianca 2 Sensor kit) miscellaneous medical supply 1 ea miscellaneous DIRECTED #6 01/09/24 Unknown Rx ea miscellaneous medical supply 1 ea miscellaneous DIRECTED 01/09/24 Unknown Rx bowel incontinence #1 ea incontinence pad, liner, disp #80 ea 01/14/24 Unknown Rx acetaminophen 500 mg tablet 1,000 mg PO Q8H PRN PRN 11/24/24 Unknown History (Tylenol Extra Strength) amlodipine 5 mg tablet 5 mg PO SUTUTHSA 11/24/24 Unknown History ciclopirox 8 % topical solution topical 11/24/24 Unknown History famotidine 40 mg tablet 40 mg PO QDAY 11/24/24 Unknown History hydralazine 50 mg tablet 50 mg PO .COMPLEX 11/24/24 Unknown History lidocaine HCl 4 % topical cream 1 applic topical BID 11/24/24 Unknown History (Aspercreme (lidocaine HCl)) loperamide 2 mg tablet mg PO 11/24/24 Unknown History (Anti-Diarrheal (loperamide)) midodrine 10 mg tablet 10 mg PO MOWEFR 11/24/24 Unknown History midodrine 5 mg tablet 5 mg PO .COMPLEX 11/24/24 Unknown History nystatin 100,000 unit/gram topical applic topical 11/24/24 Unknown History ointment ondansetron HCl 4 mg tablet 8 mg PO DAILY 11/24/24 Unknown History pantoprazole 40 mg tablet,delayed 40 mg PO BID 11/24/24 Unknown History release polyethylene glycol 3350 17 g PO QDAY 11/24/24 Unknown History gram/dose oral powder aspirin 325 mg tablet 325 mg PO QDAY #90 tabs 12/08/24 Unknown Rx metoprolol succinate 50 mg 50 mg PO QDAY #90 tabs 12/08/24 Unknown Rx tablet,extended release 24 hr Allergy/AdvReac Type Severity Reaction Status Date / Time No Known Allergies Allergy Verified 12/30/24 04:46 Family History Father Heart disease Hypertension Hyperlipidemia Grandmother Heart disease Diabetes Mother MVA (motor vehicle accident) Brother Cancer lymphoma Surgical History History of left heart catheterization (05/18/19) S/P bilateral BKA (below knee amputation) Port-A-Cath in place S/P arteriovenous (AV) fistula creation Hx of CABG (~2018) Amputation leg, bilat H/O local excision of skin lesion H/O hernia repair Social History adopted: No household members: family and other details: niece and niece's number of children: 4 current occupational status: disabled pets and animals: Yes pets and animals: cat(s) and dog(s) Smoking Status: Former smoker quit date: 07/15/18 pack-years: 70 Tobacco: How many years used: 35 Electronic Cigarette Use: not used alcohol intake: former details: 07/15/2018 substance use type: does not use, former substance user Date of last use: 07/15/2006 and crack/cocaine frequency: does not exercise do you feel safe at home: Yes ROS <Dr. Poppy Singh DO - Last Filed: 12/30/24 08:10> ROS ED Constitutional Constitutional ED: Reports other Details: Generalized weakness, intermittent confusion per ; Denies chills or fever(s) Eyes Eyes: Denies change in vision ENT ENT ED: Reports ear pain bilateral (Sharper pain for the past 24 hours-left, fullness and clogged feeling of the right ear for the past month) Cardiovascular Cardiovascular: Denies chest pain Respiratory/Chest Respiratory/Chest: Reports cough and other Details: New O2 demand over the past month per patient ; Denies dyspnea or sputum Gastrointestinal Gastrointestinal: Denies abdominal pain, diarrhea, melena, nausea or vomiting Genitourinary Genitourinary ED: Reports other Details: Patient states he rarely urinates Musculoskeletal Musculoskeletal: Denies arthralgias or myalgias Integumentary Denies rash Neurologic Neurologic: Reports weakness; Denies headache(s) Psychiatric Psychiatric: Denies anxiety Hematologic/Lymphatic Hematologic/Lymphatic: Denies easy bleeding or easy bruising EXAM <Dr. Poppy Singh, DO - Last Filed: 12/30/24 08:10> Physical Exam Const Vital Signs: 12/30/24 04:41 12/30/24 04:44 12/30/24 04:51 Temperature 98.9 F 98.9 F Temperature Source Temporal Temporal Pulse Rate 112 H 104 H Respiratory Rate 26 H 28 H Respiratory Pattern Blood Pressure 111/70 129/90 H Blood Pressure Mean 83 103 Pulse Ox 96 96 100 Oxygen Delivery Method Nasal Cannula Nasal Cannula Nasal Cannula Oxygen Flow Rate (L/min) 2 2 2 12/30/24 06:00 12/30/24 06:44 12/30/24 07:00 Temperature 98.8 F 98.8 F Temperature Source Oral Oral Pulse Rate 90 104 H 86 Respiratory Rate 18 16 15 Respiratory Pattern Normal Blood Pressure 116/88 H 127/86 H Blood Pressure Mean 97 99 Pulse Ox 99 63 Oxygen Delivery Method Room Air Room Air Oxygen Flow Rate (L/min) 12/30/24 08:00 12/30/24 09:00 12/30/24 10:42 Temperature 98.3 F 98.9 F Temperature Source Oral Oral Pulse Rate 102 H 82 110 H Respiratory Rate 23 H 25 H 16 Respiratory Pattern Blood Pressure 150/103 H 140/93 H 124/86 H Blood Pressure Mean 118 108 98 Pulse Ox 94 94 96 Oxygen Delivery Method Room Air Room Air Room Air Oxygen Flow Rate (L/min) 12/30/24 12:00 12/30/24 13:00 06/18/25 14:12 Temperature 98.3 F Temperature Source Oral Pulse Rate 101 H Respiratory Rate 22 H Respiratory Pattern Blood Pressure 135/93 H 104/71 Blood Pressure Mean 107 82 Pulse Ox 94 Oxygen Delivery Method Room Air Oxygen Flow Rate (L/min) Constitutional Narrative: Chronically ill-appearing, no acute distress. Somnolent but arouses easily with verbal stimuli and answers questions quite appropriately. General Appearance ED: NAD; Negative for pallor HEENT Reports dry mucous membranes HEENT Narrative: Normal external ears bilaterally. Partial cerumen impaction of the right ear. Unable to fully visualize the left tympanic membrane because of thin layer of wax next to the TM. Normal ear canals present. No drainage appreciated. Normal mastoids with no tenderness or overlying redness. No significant pain with palpation of the ears. Normal oropharynx. Normal nares. Mouth ED: Yes dry mucous membranes Mouth: dry mucous membranes Neck supple and no JVD Chest Wall inspection of chest normal Resp Resp Narrative: Mildly tachypneic upon arrival. Scattered coarse breath sounds with expiratory wheezing present. Cardio regular rhythm and no murmurs Rate: tachycardic GI GI Narrative: Protuberant abdomen. No specific area of tenderness. No fluid wave appreciated Auscultation: normoactive bowel sounds Palpation: soft; Negative for tender or guarding Extremity Extremity Narrative: Normal upper extremities. AV graft with palpable thrill in the left upper arm. Bilateral BKA's present. Neuro oriented x3 Sensorium / Orientation: alert Motor Exam: general weakness Psych mental status grossly normal Skin no rashes or lesions noted and no wounds Skin Narrative: Biopsy site of the left thigh, bandage is dry. No surrounding erythematous changes General Skin Exam: Negative for jaundice or pallor <Dr. Hayley Toussaint, DO - Last Filed: 12/30/24 15:06> Physical Exam Const Vital Signs: 12/30/24 04:41 12/30/24 04:44 12/30/24 04:51 Temperature 98.9 F 98.9 F Temperature Source Temporal Temporal Pulse Rate 112 H 104 H Respiratory Rate 26 H 28 H Respiratory Pattern Blood Pressure 111/70 129/90 H Blood Pressure Mean 83 103 Pulse Ox 96 96 100 Oxygen Delivery Method Nasal Cannula Nasal Cannula Nasal Cannula Oxygen Flow Rate (L/min) 2 2 2 12/30/24 06:00 12/30/24 06:44 12/30/24 07:00 Temperature 98.8 F 98.8 F Temperature Source Oral Oral Pulse Rate 90 104 H 86 Respiratory Rate 18 16 15 Respiratory Pattern Normal Blood Pressure 116/88 H 127/86 H Blood Pressure Mean 97 99 Pulse Ox 99 63 Oxygen Delivery Method Room Air Room Air Oxygen Flow Rate (L/min) 12/30/24 08:00 12/30/24 09:00 12/30/24 10:42 Temperature 98.3 F 98.9 F Temperature Source Oral Oral Pulse Rate 102 H 82 110 H Respiratory Rate 23 H 25 H 16 Respiratory Pattern Blood Pressure 150/103 H 140/93 H 124/86 H Blood Pressure Mean 118 108 98 Pulse Ox 94 94 96 Oxygen Delivery Method Room Air Room Air Room Air Oxygen Flow Rate (L/min) 12/30/24 12:00 12/30/24 13:00 12/30/24 14:12 Temperature 98.3 F Temperature Source Oral Pulse Rate 101 H Respiratory Rate 22 H Respiratory Pattern Blood Pressure 135/93 H 104/71 Blood Pressure Mean 107 82 Pulse Ox 94 Oxygen Delivery Method Room Air Oxygen Flow Rate (L/min) [facility] <Dr. Poppy Singh, DO - Last Filed: 12/30/24 08:10> [facility] Narrative Medical decision making narrative: Patient is evaluated for concern of mental status change from nursing facility. He is complaining of ear pain in the left ear for the past 1-2 days with no other acute complaints. He has a complex medical history including end-stage renal disease on hemodialysis as well as a new diagnosis of melanoma and questionable intra-abdominal pathology. Differential includes hypercapnia, metabolic process, infection, sepsis, pneumonia, otitis media, hyperkalemia, electrolyte derangement, DKA, intra-abdominal infection encephalopathy. Patient did have a recent diagnosis of atrial fibrillation I will obtain EKG however he is not complain of any chest pain. EKG shows a wide QRS tach arrhythmia with a right bundle branch block but does not appear consistent with ACS. Patient does have a significant leukocytosis of 19.1. Lab work from 2 months ago was normal. He has a left shift. He has mild anemia the hemoglobin 9.9. His CMP shows elevation of BUN and creatinine which is to be expected given his incisional disease however he is also hyponatremic with a sodium of 128. Potassium is normal. His glucose is only minimally elevated at 179 which does not explain his hyponatremia. Review of Clinisync shows that patient had an ultrasound of the abdomen for ascites on 12/17/2024–no free peritoneal fluid was identified and he did have walled off area of the low pelvis felt to reflect loculated ascites versus pelvic mass. Recommended CT abdomen pelvis for further evaluation. CT of the chest abdomen pelvis shows airspace disease of the right middle lobe and lingula probably multifocal pneumonia. In addition there is heterogenic cystic central mesenteric mass lesion 17 x 22 x 19.3 cm probably neoplastic in pathology. Will start on antibiotics to cover for healthcare associated pneumonias patient is a nurse facility in dialysis. I will contact hospitalist for admission. Patient is comfortable being admitted here. Informed of concern of cancer in his abdomen on his CT. Spoke with hospitalist, Dr. Sterling. He felt the patient was too complex for our hospital so she given a to possible new neoplastic process. Recommended transfer. Will contact [facility] for transfer. Lab Data Attestation: I reviewed the patient's lab results. Labs: Laboratory Results - last 24 hr 12/30/24 05:36 WBC 19.1 H RBC 3.42 L Hgb 9.9 L Hct 30.5 L MCV 89.2 MCH 28.9 MCHC 32.5 RDW Std Deviation 51.8 H RDW Coeff of Faheem 15.9 H Plt Count 217 MPV 9.1 Immature Gran % (Auto) 1.300 H Neut % (Auto) 86.9 H Lymph % (Auto) 5.1 L Crenshaw % (Auto) 5.6 Eos % (Auto) 0.7 Baso % (Auto) 0.4 Absolute Neuts (auto) 16.6 H Absolute Lymphs (auto) 0.98 Nucleated RBC % 0 Sodium 128 L Potassium 4.9 Chloride 86 L Carbon Dioxide 25.8 Anion Gap 16 H BUN 41 H Creatinine 4.76 H Estim Creat Clear Calc 20.11 L Est GFR (MDRD) Non-Af 14 L BUN/Creatinine Ratio 8.7 L Glucose 179 H Lactic Acid 1.1 Calcium 8.9 Total Bilirubin 0.54 AST 11 ALT 7 Alkaline Phosphatase 173 H Total Protein 7.2 Albumin 4.3 Globulin 3.0 Albumin/Globulin Ratio 1.4 ABG Data ABG results: ABG 12/30/24 05:42 Specimen Type KEVIN Sample Site Not entered O2 % 2.0 VBG pH 7.48 H VBG pO2 39 VBG HCO3 33 H VBG Total CO2 34 H VBG O2 Sat (Calc) 76 H VBG Base Excess 9 H POC Mix VBG pCO2 Pt Tmp 43.8 O2 Delivery Device Cannula Radiography Diagnostic Testing: Clinical Impression(s) from Imaging Studies Chest X-Ray 12/30/24 05:50 IMPRESSION: Unremarkable median sternotomy wires. Decreased central pulmonary venous congestion. Mild bilateral basilar atelectatic pulmonary changes. Unchanged cardiomegaly. [facility]/Abdomen/Pelvis CT 12/30/24 06:11 IMPRESSION: 1. Mild cardiomegaly. 2. Prior CABG. 3. Bilateral basilar atelectatic pulmonary changes. 4. Subsegmental atelectasis/airspace disease of the right middle lobe and lingula, probably multifocal pneumonia. 5. Mild multifocal ground-glass densities of the lung bases, possibly multifocal pneumonia. 6. Hepatomegaly. 7. Cystic lesion is noted along the lesser curvature of the stomach extending to the lesser sac measuring 7.5 x 5.3 cm, suspicious for neoplastic pathology. 8. Cholelithiasis with mild diffuse thickening of the wall of the gallbladder. This can be further evaluated by ultrasound exam. 9. Heterogeneous cystic central mesenteric mass lesion is noted measuring 17 x 22 x 19.3 cm, probably neoplastic pathology. 10. Splenomegaly measuring 16.3 cm. 11. Mild osteopenia. 12. Diffuse spondylosis. 13. Bilateral nonobstructing renal stones with the largest measuring 2 mm. 14. Fat containing umbilical hernia without incarceration. [facility] Diagnostic Data Chest X-Ray 12/30/24 05:50 IMPRESSION: Unremarkable median sternotomy wires. Decreased central pulmonary venous congestion. Mild bilateral basilar atelectatic pulmonary changes. Unchanged cardiomegaly. Reading [facility] Chest/Abdomen/Pelvis CT 12/30/24 06:11 IMPRESSION: 1. Mild cardiomegaly. 2. Prior CABG. 3. Bilateral basilar atelectatic pulmonary changes. 4. Subsegmental atelectasis/airspace disease of the right middle lobe and lingula, probably multifocal pneumonia. 5. Mild multifocal ground-glass densities of the lung bases, possibly multifocal pneumonia. 6. Hepatomegaly. 7. Cystic lesion is noted along the lesser curvature of the stomach extending to the lesser sac measuring 7.5 x 5.3 cm, suspicious for neoplastic pathology. 8. Cholelithiasis with mild diffuse thickening of the wall of the gallbladder. This can be further evaluated by ultrasound exam. 9. Heterogeneous cystic central mesenteric mass lesion is noted measuring 17 x 22 x 19.3 cm, probably neoplastic pathology. 10. Splenomegaly measuring 16.3 cm. 11. Mild osteopenia. 12. Diffuse spondylosis. 13. Bilateral nonobstructing renal stones with the largest measuring 2 mm. 14. Fat containing umbilical hernia without incarceration. Reading [facility] <Dr. Hayley Toussaint, DO - Last Filed: 12/30/24 15:06> [facility] Narrative Medical decision making narrative: Patient is evaluated for concern of mental status change from nursing facility. He is complaining of ear pain in the left ear for the past 1-2 days with no other acute complaints. He has a complex medical history including end-stage renal disease on hemodialysis as well as a new diagnosis of melanoma and questionable intra-abdominal pathology. Differential includes hypercapnia, metabolic process, infection, sepsis, pneumonia, otitis media, hyperkalemia, electrolyte derangement, DKA, intra-abdominal infection encephalopathy. Patient did have a recent diagnosis of atrial fibrillation I will obtain EKG however he is not complain of any chest pain. EKG shows a wide QRS tach arrhythmia with a right bundle branch block but does not appear consistent with ACS. Patient does have a significant leukocytosis of 19.1. Lab work from 2 months ago was normal. He has a left shift. He has mild anemia the hemoglobin 9.9. His CMP shows elevation of BUN and creatinine which is to be expected given his incisional disease however he is also hyponatremic with a sodium of 128. Potassium is normal. His glucose is only minimally elevated at 179 which does not explain his hyponatremia. Review of Clinisync shows that patient had an ultrasound of the abdomen for ascites on 12/17/2024–no free peritoneal fluid was identified and he did have walled off area of the low pelvis felt to reflect loculated ascites versus pelvic mass. Recommended CT abdomen pelvis for further evaluation. CT of the chest abdomen pelvis shows airspace disease of the right middle lobe and lingula probably multifocal pneumonia. In addition there is heterogenic cystic central mesenteric mass lesion 17 x 22 x 19.3 cm probably neoplastic in pathology. Will start on antibiotics to cover for healthcare associated pneumonias patient is a nurse facility in dialysis. I will contact hospitalist for admission. Patient is comfortable being admitted here. Informed of concern of cancer in his abdomen on his CT. Spoke with hospitalist, Dr. Sterling. He felt the patient was too complex for our hospital so she given a to possible new neoplastic process. Recommended transfer. Will contact [facility] for transfer. Patient accepted for transfer to [facility] however they are not sure when they will have a bed available. He has been in the department 6 hours and spoke with hospitalist who recommended we observe in the department for another few hours as we are low on beds and [facility] just started doing their discharges around 2 PM and may have beds available around dinnertime. Will turn case over to evening physician awaiting transfer to [facility]. Lab Data Labs: Laboratory Results - last 24 hr 12/30/24 05:36 WBC 19.1 H RBC 3.42 L Hgb 9.9 L Hct 30.5 L MCV 89.2 MCH 28.9 MCHC 32.5 RDW Std Deviation 51.8 H RDW Coeff of Faheem 15.9 H Plt Count 217 MPV 9.1 Immature Gran % (Auto) 1.300 H Neut % (Auto) 86.9 H Lymph % (Auto) 5.1 L Crenshaw % (Auto) 5.6 Eos % (Auto) 0.7 Baso % (Auto) 0.4 Absolute Neuts (auto) 16.6 H Absolute Lymphs (auto) 0.98 Nucleated RBC % 0 Sodium 128 L Potassium 4.9 Chloride 86 L Carbon Dioxide 25.8 Anion Gap 16 H BUN 41 H Creatinine 4.76 H Estim Creat Clear Calc 20.11 L Est GFR (MDRD) Non-Af 14 L BUN/Creatinine Ratio 8.7 L Glucose 179 H Lactic Acid 1.1 Calcium 8.9 Total Bilirubin 0.54 AST 11 ALT 7 Alkaline Phosphatase 173 H Total Protein 7.2 Albumin 4.3 Globulin 3.0 Albumin/Globulin Ratio 1.4 ABG Data ABG results: ABG 12/30/24 05:42 Specimen Type KEVIN Sample Site Not entered O2 % 2.0 VBG pH 7.48 H VBG pO2 39 VBG HCO3 33 H VBG Total CO2 34 H VBG O2 Sat (Calc) 76 H VBG Base Excess 9 H POC Mix VBG pCO2 Pt Tmp 43.8 O2 Delivery Device Cannula Radiography Diagnostic Testing: Clinical Impression(s) from Imaging Studies Chest X-Ray 12/30/24 05:50 IMPRESSION: Unremarkable median sternotomy wires. Decreased central pulmonary venous congestion. Mild bilateral basilar atelectatic pulmonary changes. Unchanged cardiomegaly. Reading [facility] Chest/Abdomen/Pelvis CT 12/30/24 06:11 IMPRESSION: 1. Mild cardiomegaly. 2. Prior CABG. 3. Bilateral basilar atelectatic pulmonary changes. 4. Subsegmental atelectasis/airspace disease of the right middle lobe and lingula, probably multifocal pneumonia. 5. Mild multifocal ground-glass densities of the lung bases, possibly multifocal pneumonia. 6. Hepatomegaly. 7. Cystic lesion is noted along the lesser curvature of the stomach extending to the lesser sac measuring 7.5 x 5.3 cm, suspicious for neoplastic pathology. 8. Cholelithiasis with mild diffuse thickening of the wall of the gallbladder. This can be further evaluated by ultrasound exam. 9. Heterogeneous cystic central mesenteric mass lesion is noted measuring 17 x 22 x 19.3 cm, probably neoplastic pathology. 10. Splenomegaly measuring 16.3 cm. 11. Mild osteopenia. 12. Diffuse spondylosis. 13. Bilateral nonobstructing renal stones with the largest measuring 2 mm. 14. Fat containing umbilical hernia without incarceration. Reading [facility] Discharge Plan Dx/Rx/DC Orders Clinical Impression: Multifocal pneumonia, ESRD on hemodialysis, Acute hyponatremia, Mesenteric mass, Altered mental status Disposition Disposition: Acute Care [facility]
--- NOTE | 2024-12-30 05:26 | EKG12_ITS ---
Test Reason : DYSRHYTHMIA Blood Pressure : */* mmHG Vent. Rate : 111 BPM Atrial Rate : * BPM P-R Int : * ms QRS Dur : 176 ms QT Int : 420 ms P-R-T Axes : * 265 30 degrees QTcB Int : 571 ms Sinus tachycardia Right bundle branch block Inferior infarct , age undetermined Abnormal ECG Confirmed by Andrez Scott ([id number]), order editor FLACO WING ([id number]) on 01/05/2025 11:45:19 AM Referred By: Confirmed By: Andrez Scott
[2024-12-30 05:43] LABS: Absolute Lymphocyte Count 0.98 X10^3/uL (0.83-4.51); Absolute Neutrophil Count 16.6 X10^3/uL (2.0-7.7); Basophil# 0.08 X10^3/uL; Basophil% 0.4 % (0-1); Eosinophil# 0.13 X10^3/uL; Eosinophils% 0.7 % (0-5); Hematocrit 30.5 % (40-54); Hemoglobin 9.9 g/dL (13.0-16.5); Lymphocyte # 0.98 X10^3/ul (0.83-4.51); Lymphocyte % 5.1 % (19-41); Mean Corp Hgb Conc 32.5 g/dL (32-36); Mean Corpuscular Hgb 28.9 pg (27.0-32.0); Mean Corpuscular Volume 89.2 fL (80-94); Mean Platelet Vol. 9.1 fl (6.2-12.0); Monocyte# 1.06 X10^3/uL; Monocyte% 5.6 % (0-10); NRBC Flagged by Analyzer 0 % (0-5); Neutrophil # 16.59 X10^3/uL (2.7-7.7); Neutrophil % 86.9 % (47-70); Platelet Count 217 K/mm3 (150-450); RBC Distribution Width CV 15.9 % (11.6-14.6); RBC Distribution Width SD 51.8 fl (35.1-43.9); Red Blood Count 3.42 M/mm3 (4.6-6.2); White Blood Count 19.1 K/mm3 (4.4-11.0)
[2024-12-30 05:45] LABS: Blood Gas Specimen Type VEN; O2 Delivery Device Cannula; SITE Not entered; VBG BASE EXCESS 9 mmol/L (-1.0-3.5); VBG Bicarbonate 33 mmol/L (22-26); VBG PO2 39 mmHg (25-40); VBG SO2 76 % (50-70); VBG TCO2 34 mmol/L (23-33); VBG pCO2 43.8 mmHg (41-51); VBG pH 7.48 (7.32-7.42)
--- NOTE | 2024-12-30 05:50 | RAD_ITS ---
PROCEDURE: CHEST 1 VIEW (PORTABLE) 12/30/2024 REASON FOR EXAM: COUGH TECHNIQUE: Frontal view of the chest. COMPARISON: 02/09/2024. FINDINGS: Unremarkable median sternotomy wires. Decreased central pulmonary venous congestion. Mild bilateral basilar atelectatic pulmonary changes. There is no demonstrated pleural abnormality. Enlarged cardiac silhouette. Normal mediastinum and [place]. Normal visualized pulmonary arteries. Atheromatous plaques of the visualized aortic arch and descending thoracic aorta. Diffuse spondylosis of the visualized thoracic spine. Normal visualized ribs, clavicles. Degenerative joint disease. There is no demonstrated abnormality of the visualized soft tissue structures of the upper abdomen. RAD/Chest 1 View (Portable) IMPRESSION: Unremarkable median sternotomy wires. Decreased central pulmonary venous congestion. Mild bilateral basilar atelectatic pulmonary changes. Unchanged cardiomegaly. Reading Location: [place] [id number]
--- OUTSIDE RECORDS SUMMARY | 2024-12-30 05:54 | XMS RPT_ITS | CCD ---
Author Organization [facility] Care Team Providers Care Manufacturing Storeperson Name Role Phone KATHY BUCHANAN Primary Care Provider LIVIER LÓPEZ Attending Provider Erik Hargrove Unavailable Connie Montgomery Unavailable NAFISA HARGROVEP-BC ERIK N Primary Care Provider DO KIM QUEVEDO Attending Provider LINA HARGROVE ERIK N Primary Care Provider [phone] DO ROBERTO QUEVEDO Attending Provider DO KIM QUEVEDO Attending Provider NAFISA HARGROVEP-BC ERIK Loving Primary Care Provider DO KIM QUEVEDO Attending Provider LINA HARGROVE Primary Care Provider [phone] DO KIM QUEVEDO Attending Provider DOUGLAS STYLES Attending Unavailable KASIE THAPA Attending Unavailable KRYSTEN العلي Attending Unavailable KIM ALVAREZ Attending Unavailable KARENA WHALEN Attending Unavailable SB AGEE Attending Unavailable JORGITO RIVERA Attending Unavailable JORGITO RIVERA Attending Unavailable LEOPOLDO DUFFY Attending Unavailable VICKI RAO Attending Unavailable JORGITO RIVERA Attending Unavailable JORGITO RIVERA Attending Unavailable JORGITO RIVERA Attending Unavailable KIM ALVAREZ Attending Unavailable MIGUEL, SHAYGNE Attending Unavailable SCIANCE, VICKI Attending Unavailable MIGUEL, JORGITO Attending Unavailable GILBERT, KIM Attending Unavailable GILBERT, KIM Attending Unavailable GILBERT, KIM Attending Unavailable SCIANCE, VICKI Attending Unavailable GILBERT, KIM Attending Unavailable SCIANCE, VICKI Attending Unavailable RAMAVARAPU, ELISABETH Attending Unavailable SCIANCE, VICKI Attending Unavailable VIERLING, KATHY Attending Unavailable RAMAVARAPU, ELISABETH Attending Unavailable GREIN, CHRISTIANO Attending Unavailable VIERLING, KATHY Attending Unavailable SCIANCE, VICKI Attending Unavailable VIERLING, KATHY Attending Unavailable RAMAVARAPU, ELISABETH Attending Unavailable HARGROVE, ERIK N Primary Care Unavailable KIM QUEVEDO Attending Unavailable HARGROVE, ERIK N Primary Care Unavailable KIM QUEVEDO Attending Unavailable KIM QUEVEDO Attending Unavailable HARGROVE, ERIK N Primary Care Unavailable KIM QUEVEDO Attending Unavailable HARGROVE, ERIK N Primary Care Unavailable HARGROVE, ERIK N Primary Care Unavailable KIM QUEVEDO Attending Unavailable HARGROVE, ERIK N Primary Care Unavailable KIM QUEVEDO Attending Unavailable HARGROVE, ERIK N Primary Care Unavailable KIM QUEVEDO Attending Unavailable KIM QUEVEDO Referring Unavailable HARGROVE, ERIK N Primary Care Unavailable KIM QUEVEDO Attending Unavailable KIM QUEVEDO Attending Unavailable KIM QUEVEDO Referring Unavailable HARGROVE, ERIK N Primary Care Unavailable KIM QUEVEDO Referring Unavailable HARGROVE, ERIK N Primary Care Unavailable KIM QUEVEDO Attending Unavailable KIM QUEVEDO Referring Unavailable HARGROVE, ERIK N Primary Care Unavailable KIM QUEVEDO Attending Unavailable SAE, ROBERTO Referring Unavailable QUEVEDOROBERTO SAMANIEGO Attending Unavailable HARGROVE, ERIK N Primary Care Unavailable HARGROVE, ERIK N Primary Care Unavailable KIM QUEVEDO Attending Unavailable KIM QUEVEDO Referring Unavailable HARGROVE, ERIK N Primary Care Unavailable KIM QUEVEDO Attending Unavailable HARGROVE, ERIK N Primary Care Unavailable ROBERTO QUEVEDO Attending Unavailable HARGROVE, ERIK N Primary Care Unavailable KIM QUEVEDO Attending Unavailable KIM QUEVEDO Attending Unavailable HARGROVE, ERIK N Primary Care Unavailable HARGROVE, ERIK N Primary Care Unavailable KIM QUEVEDO Attending Unavailable HARGROVE, ERIK N Primary Care Unavailable KIM QUEVEDO Attending Unavailable HARGROVE, ERIK N Primary Care Unavailable KIM QUEVEDO Attending Unavailable QUEVEDOKIM DIXON Referring Unavailable HARGROVE, ERIK N Primary Care Unavailable KIM QUEVEDO Attending Unavailable HARGROVE, ERIK N Primary Care Unavailable KIM QUEVEDO Attending Unavailable KIM QUEVEDO Referring Unavailable HARGROVE, ERIK N Primary Care Unavailable KIM QUEVEDO Referring Unavailable QUEVEDOKIM DIXON Attending Unavailable HARGROVE, ERIK N Primary Care Unavailable KIM QUEVEDO Referring Unavailable QUEVEDOKIM DIXON Attending Unavailable HARGROVE, ERIK N Primary Care Unavailable KIM QUEVEDO Attending Unavailable HARGROVE, ERIK N Primary Care Unavailable KIM QUEVEDO Attending Unavailable HARGROVE, ERIK N Primary Care Unavailable KIM QUEVEDO Attending Unavailable HARGROVE, ERIK N Primary Care Unavailable KIM QUEVEDO Attending Unavailable HARGROVE, ERIK N Primary Care Unavailable KIM QUEVEDO Attending Unavailable HARGROVE, ERIK N Primary Care Unavailable KIM QUEVEDO Attending Unavailable HARGROVE, ERIK N Primary Care Unavailable KIM QUEVEDO Attending Unavailable HARGROVE, ERIK N Primary Care Unavailable KIM QUEVEDO Attending Unavailable DANTE LESLIE Primary Care Physician Kathy Bullock Unavailable Unavailable Jm TO, Dr. Blanco Primary Care Provider Dr. Gila Bernal MD Attending Provider UnavailDr. Gila Potter MD Referring Provider UnavailDr. Ton North MD Attending Provider Dr. Bella Oneal MD Referring Provider Agusto Rogers MD Attending Provider Dr. Omer Arora MD Attending Provider Dr. Tiburcio Osborne MD Attending Provider Bella Oneal Primary Care Unavailable Bella Oneal Attending Unavailable Candor, Bella Referring Unavailable Candor, Bella Primary Care Unavailable Gudla OLS, Gila Attending Unavailable Gudla OLS, Gila Referring Unavailable Morehart, Kayleen Michelle Primary Care UnavailTiburcio Rowell Attending Unavailable Tiburcio Osborne Referring Unavailable Agusto Rogers Attending Unavailable Agusto Rogers Referring Unavailable Morehart, Kayleen Michelle Primary Care Unavailabl e Jm, Bella Primary Care Unavailable Jm, Bella Attending Unavailable Jm, Bella Referring Unavailable Omer Arora Attending Unavailable DylonTiburcio Attending Unavailable Jm, Bella Primary Care Unavailable Gretchen Rodriguez Attending Unavailable Jm, Bella Referring Unavailable Jm, Bella Primary Care Unavailable Jm, Bella Attending Unavailable Jm, Bella Referring Unavailable Agusto Rogers Attending Unavailable Jm, Bella Referring Unavailable Candor, Bella Referring Unavailable Jm, Bella Primary Care Unavailable Jm, Bella Attending Unavailable Jm, Bella Primary Care Unavailable Basali Ayman Attending Unavailable Basali, Ayman Referring Unavailable Jm, Bella Primary Care Unavailable Ton Vasquez Attending Unavailable Candor, Bella Primary Care Unavailable [place] Attending Unavailable Jason Morris Attending Unavailable Jm, Bella Primary Care Unavailable KRYSTAL MARAVILLA MD Attending UnavailTRAMAINE Hua DO Consulting Unavaila isaac FERRO MD, DR ZAIN Jimenez Admitting Unavailable CIERA HOTEL OR MOTEL ROOM SERVICE SUPERVISOR-DOOR TO DOOR SELLING AGENT, DANTE Primary Care Unavai lable CIERA TAYLOR-MICHAEL, DANTE Primary Care Unavai lable REFERRING, PHY WO ID Attending Unavailable KIZZY MEDEROS DO Attending Unavailable PILLO TO, DR ZAIN Jimenez Consulting Unavailable CIERA HOTEL OR MOTEL ROOM SERVICE SUPERVISOR-DOOR TO DOOR SELLING AGENT, DANTE Primary Care Unavai lable REFERRING, PHY WO ID Attending Unavailable CIERA HOTEL OR MOTEL ROOM SERVICE SUPERVISOR-DOOR TO DOOR SELLING AGENT, DANTE Primary Care Unavai lable Unavailable Unavailable Unavailable Unavailable Unavailable Unavailable Medications Current Medications Medication Drug Class(es) Dates Sig (Normalized) Sig (Original) acetaminophen 500 mg oral tablet (20 sources) Start: 11-24-2024 take 2 tablets by mouth every eight hours as needed Acetaminophen (Tylenol Extra Strength) 500 mg tablet Active 1000 mg PO EVERY 8 HOURS NEEDED as needed November 24, 2024 12:00am Start: 12-17-2023 End: 11-24-2024 take 1 tablet by mouth every eight hours as needed for pain Acetaminophen (Tylenol Arthritis Pain) 650 mg tablet extended release Discontinued 650 mg PO Q8H as needed for pain January 09, 2024 2:00pm November 24, 2024 2:22pm Start: 12-23-2020 Acetaminophen 500 MG Every 4 hours PRN Oral as directed Dec, Active amLODIPine 5 mg oral tablet (4 sources) Dihydropyridine Calcium Channel Ivet Start: 12-17-2024 take 1 tablet by mouth once daily amLODIPine 5 mg oral tablet See Instructions, 1 tab(s) Oral qDay, 0 Refill(s) Start Date: 12/17/24 Status: Ordered Repeat number: 1 Start: 11-24-2024 take 1 tablet by mouth once Am lodipine 5 mg tablet Active 5 mg PO every Saturday, , , SatNovember 24, 2024 12:00am Start: 12-17-2023 End: 11-24-2024 take 1 tablet by mouth once daily Amlodipine 10 mg tablet Discontinued 10 mg PO daily December 24, 2023 2:44pm November 24, 2024 2:03pm aspirin 81 mg delayed release oral tablet (20 sources) Platelet Aggregation Inhibitor, Nonsteroidal Anti-inflammatory Drug Start: 12-17-2024 aspirin 81 mg ora l delayed release tablet Dose : 81 mg = 1 tab(s), Oral, Daily, 0 Refill(s) Start Date: 12/17/24 Status: Ordered Repeat number: 1 Start: 12-17-2023 End: 11-24-2024 take 1 tablet by mouth once daily Aspirin 81 mg tablet,delayed release (DR/EC) Discontinued 81 mg PO daily December 24, 2023 2:45pm November 24, 2024 2:24pm Start: 09-25-2019 take 81 mg by mouth once daily Aspirin Active 81 MG PO Daily September 25, 2019 12:00am atorvastatin 40 mg oral tablet (20 sources) HMG-CoA Reductase Inhibitor Start: 07-22-2024 atorvastatin 40 mg oral tablet Dose : 40 mg = 1 tab(s), Oral, Daily, # 100 tab(s), 0 Refill(s) Start Date: 12/17/24 Status: Ordered Quantity: 100.0 Unit: tab(s) Repeat number: 1 Start: 12-17-2023 End: 12-24-2023 atorvastatin 40 mg oral tabl et Dose : 40 mg = 1 tab(s), Oral, Daily, 0 Refill(s) Start Date: 07/22/24 Status: Ordered Repeat number: 1 Start: 09-25-2019 take 1 tablet by daja th once daily Atorvastatin (Lipitor) 80 mg tablet Active 80 MG PO Daily September 25, 2019 12:00am Blood Glucose Monitor (5 sources) Start: 05-28-2021 Blood Glucose Monitor for blood glucose monitoring E11.65 in VItro Up to 4 times daily for 99 days May, Active Start: 05-28-2021 calcitriol 0.74382 mg oral c apsule (10 sources) Vitamin D3 Analog Start: 12-15-2019 Start: 12-15-2019 Calcitriol 0.2 5 MCG Oral "Prescriber Name: CHENTE" Dec, Active calcium carbonate 1250 mg chewable tablet (17 sources) Start: 09-25-2019 Calcium Carbon ate Active 1500 MG .ud September 25, 2019 8:27am TAKES 3 BETWEEN EACH MEAL AND AT BEDTIME Start: 09-25-2019 End: 08-11-2021 Calcium Carbonate Discontinu ed 1500 MG PO .ud September 25, 2019 12:00am August 11, 2021 11:28am TAKES 3 BETWEEN EACH MEAL AND AT BEDTIME ciclopirox 80 mg/ml topical solution (2 sources) Start: 12-17-2024 Ciclodan 8% to pical solution Apply 1 dina, Topical, Daily, Apply to: fingernails, # 1 EA, 0 Refill(s), 113.6 Start Date: 12/17/24 Status: Ordered Quantity: 1.0 Unit: EA Repeat number: 1 Start: 11-24-2024 Ciclopirox 8 % solution Active TOPICAL November 24, 2024 12:00am Clindamycin (8 sources) Lincosamide Antibacterial Start: 02-01-2022 take 2 capsules by mouth every eight hours Clindamycin HCl - 2 capsules Orally every 8 hrs for 5 day(s) Jan, Active clopidogrel 75 mg oral tablet (20 sources) [id number] Platelet Inhibitor Start: 09-25-2019 take 1 tablet by mouth once daily Clopidogrel (Plavix) 75 mg tablet Active 75 MG PO Daily September 25, 2019 12:00am Commode Bedside/Back (19 sources) Start: 06-13-2020 Start: 06-13-2020 Commode Bedsid e/Back 1 large bedside [id number] Does Not Apply as directed May, Active Start: 06-13-2020 cyclobenzaprine hydrochloride 10 mg oral tablet (5 sources) Muscle Relaxant Start: 07-22-2024 cyclobenzaprin e 10 mg oral tablet Dose : 10 mg = 1 tab(s), Oral, qHS, 0 Refill(s) Start Date: 07/22/24 Status: Ordered Repeat number: 1 Start: 12-17-2023 End: 12-24-2023 cyclobenzaprine 10 mg oral t ablet Dose : 10 mg = 1 tab(s), Oral, qHS, 0 Refill(s) Start Date: 07/22/24 Status: Ordered Repeat number: 1 diphenhydrAMINE hydrochloride 25 mg oral tablet (19 sources) Histamine-1 Receptor Antagonist Start: 07-22-2024 diphenhydrAMINE 25 m g oral tablet Dose : 25 mg = 1 tab(s), Oral, qHS, PRN as needed for itching, For itching not insomnia, # 30 tab(s), 0 Refill(s) Start Date: 07/22/24 Status: Ordered Quantity: 30.0 Unit: tab(s) Repeat number: 1 Start: 12-17-2023 take 1 capsule by mo [facility] at bedtime Diphenhydramine Hcl (Banophen) 25 mg capsule Active 25 mg PO AT BEDTIME December 17, 2023 12:00am Start: 10-04-2020 take 25 mg by mouth once daily in the evening Diphenhydramine Hcl Active 25 MG PO Every evening October 04, 2020 12:00am doxycycline hyclate 100 mg oral tablet (1 source) Tetracycline-class Drug Start: 09-07-2021 End: 09-17-2021 take 1 tablet by mouth twice daily Doxycycline Hyclate 100 MG 1 tablet Orally Twice a day for 10 day(s) Aug, Sep, Active 0.5 ml dulaglutide 3 mg/ml auto-injector (5 sources) GLP-1 Receptor Agonist Start: 06-07-2020 Trulicity 1.5 MG/0.5ML Subcutaneous once a week May, Active Start: 06-07-2020 famotidine 40 mg oral tablet (4 sources) Histamine-2 Receptor Antagonist Start: 07-22-2024 take 1 tablet by mouth once daily Famotidine 40 mg tablet Active 40 mg PO daily November 24, 2024 12:00am Ferrex 150 Forte 150-1-25 MG-MG-MCG (14 sources) Start: 05-23-2020 Start: 05-23-2020 Ferrex 150 For te 150-1-25 MG-MG-MCG Given during dialysis, per [facility] Records. Oral once a day May, Active Start: 05-23-2020 Flash Glucose Scanning Reade r (Freestyle Bianca 2 [place]) misc (2 sources) Start: 01-09-2024 Flash Glucose Scanning [place] (Freestyle Bianca 2 [place]) [facility] Active [facility] .Route 1 January 09, 2024 1:59pm 1-2 times daily and as needed Start: 12-17-2023 End: 01-09-2024 Flash Glucose Scanning Reade r (Freestyle Bianca 2 [place]) misc Discontinued 0 .Route 1 December 17, 2023 12:00am January 09, 2024 1:59pm 1-2 times daily and as needed Flash Glucose Sensor (Freest yle Bianca 2 Sensor) kit (2 sources) Start: 01-09-2024 Flash Glucose Sensor (Freestyle Bianca 2 Sensor) kit Active 0 .Route 1 January 09, 2024 1:59pm 1-2 times daily and as needed Start: 12-17-2023 End: 01-09-2024 Flash Glucose Sensor (Freest yle Bianca 2 Sensor) kit Discontinued 0 .Route 1 December 17, 2023 12:00am January 09, 2024 1:59pm 1-2 times daily and as needed fluticasone propionate 0.05 mg/actuat metered dose nasal spray (6 sources) Corticosteroid Start: 07-22-2024 take 50 ug nasal route twice daily fluticasone proprionate NASAL 50 mcg/ spray 50 mcg Dose = 1 spray(s), Nostril, each, BID, 0 Refill(s) Start Date: 07/22/24 Status: Ordered Repeat number: 1 Start: 07-22-2024 take 50 ug nasal rou te once daily in the morning fluticasone proprionate NASAL 50 mcg/ spray 50 mcg Dose = 1 spray(s), Nostril, each, qAM, 0 Refill(s) Start Date: 07/22/24 Status: Ordered Repeat number: 1 Start: 12-17-2023 Fluticasone Pr opionate 50 mcg/actuation spray,suspension Active INTRANASAL December 17, 2023 12:00am fluticasone / salmeterol (4 sources) Corticosteroid, beta2-Adrenergic Agonist Start: 07-22-2024 take 1 dose by inhalation twice daily Advair Diskus 250 mcg-50 mcg inhalation powder Dose = 1 puff(s), Inhalation, BID, 0 Refill(s) Start Date: 07/22/24 Status: Ordered Repeat number: 1 Start: 12-17-2023 Fluticasone Pr opion-Salmeterol (Advair Diskus) 250-50 mcg/dose blister with device Active 1 NMA INHALATION TWICE A DAY December 17, 2023 12:00am folic acid 1 mg / polysaccharide iron complex 150 mg / vitamin b12 0.025 mg oral capsule (5 sources) Vitamin B12 Start: 05-23-2020 Ferrex 150 For te 150-1-25 MG-MG-MCG Given during dialysis, per [facility] Records. Oral once a day May, Active Folic Acid/Vit B Complex And C (2 sources) Start: 09-25-2019 Folic Acid/Vit B Complex And C Active 1 TAB Daily September 25, 2019 8:48am Gait/Transfer Belt (5 sources) Start: 06-13-2020 Gait/Transfer Belt 1 unitR26.89 Does Not Apply as directed May, Active Start: 06-13-2020 handicap placard (1 source) Start: 12-17-[address] Active 0 .ROUTE .MEDSUPPLY 1 December 17, 2023 12:00am Length of time: 5 years Impaired physical mobility: Z74.09 hydrALAZINE hydrochloride 50 mg oral tablet (19 sources) Arteriolar Vasodilator Start: 11-24-2024 take 1 tablet by mouth once daily in the evening Hydralazine 50 mg tablet Active 50 mg PO EVERY EVENING November 24, 2024 12:00am Start: 09-25-2019 End: 10-04-2020 take 25 mg by mouth three times daily in the evening Hydralazine Discontinued 25 MG PO .UD September 25, 2019 12:00am October 04, 2020 7:58am TAKES 3 TIMES A DAY T; TH & SAT; TAKES ONCE IN EVENING M,W,F Incontinence Pad, Liner, Dis p pad (2 sources) Start: 01-14-2024 Incontinence P ad, Liner, Disp pad Active 0 .Route 80 January 14, 2024 12:39pm As directed Start: 01-09-2024 End: 01-14-2024 Incontinence Pad, Liner, Dis p pad Discontinued 0 .Route 80 January 09, 2024 12:00am January 14, 2024 12:39pm As directed Insulin Aspart 100 UNIT/ML (5 sources) Start: 12-23-2020 inject 30 [IU] by subcutaneous injection three times daily Insulin Aspart 100 UNIT/ML take 30 units Subcutaneous three times a day *please review for potential _update for e-prescription and drug interaction check* Dec, Active Start: 12-23-2020 3 ml insulin aspart, human 100 unt/ml pen injector (20 sources) Insulin Analog Start: 08-23-2021 Insulin Aspart U-100 Active 1 EA SQ 3 times per day August 23, 2021 1:00am sliding scale inject 10 [IU] by nichols bcutaneous injection three times daily before mealtime NovoLOG 100 UNIT/ML as directed Subcutaneous inject 10 units subcutaneously before meals three times a day max daily dose 30 units Not-Taking 3 ml insulin detemir 100 unt/ml pen injector (20 sources) Insulin Analog Start: 09-25-2019 Insulin Detemi r Active 35 UNIT Daily September 25, 2019 8:49am Start: 09-25-2019 Insulin Detemi r U-100 (Levemir Flextouch U-100 Insuln) 100 unit/mL (3 mL) insulin pen Active 40 UNIT SQ Daily September 25, 2019 12:00am Levemir FlexTouc h 100 UNIT/ML as directed Subcutaneous 40 U BID Active Insulin Detemir 100 UNIT/ML (5 sources) Start: 12-23-2020 inject 40 [IU] by subcutaneous injection twice daily Insulin Detemir 100 UNIT/ML Take 40 units Subcutaneous twice a day *please review for potential _update for e-prescription and drug interaction check* Dec, Active Start: 12-23-2020 3 ml insulin lispro 100 unt/ml pen injector (2 sources) Insulin Analog Start: 07-22-2024 HumaLOG KwikPe n 100 units/mL injectable PEN 0 Refill(s) Start Date: 07/22/24 Status: Ordered Repeat number: 1 Iron Complex (2 sources) Start: 05-17-2020 Iron Complex p er [facility] records rec'd Oral once a day May, Active Start: 05-17-2020 200 actuat levalbuterol 0.045 mg/actuat metered dose inhaler (17 sources) beta2-Adrenergic Agonist Start: 09-25-2019 take 1 puff(s) by inhalation every four to six hours Levalbuterol Tartrate Active 2 PUFF INH Every 4-6 hours September 25, 2019 12:00am lidocaine hydrochloride 0.04 mg/mg topical gel (7 sources) Antiarrhythmic, Amide Local Anesthetic Start: 12-17-2024 apply 1 dose topically once daily as needed for pain lidocaine 4% topical gel Dose = 1 pump(s), Topical, qDay, PRN as needed for pain, not to exceed 12 pumps/day, # 30 mL, 0 Refill(s) Start Date: 12/17/24 Status: Ordered Quantity: 30.0 Unit: mL Repeat number: 1 Start: 11-24-2024 Lidocaine Hcl (Aspercreme (Lidocaine Hcl)) 4 % cream Active 1 NMA TOPICAL TWICE A DAY November 24, 2024 12:00am Start: 07-22-2024 apply 1 dose topical ly once daily as needed for pain lidocaine 4% patch Dose = 1 patch(es), Topical, qDay, PRN Pain, lower back, 0 Refill(s) Start Date: 07/22/24 Status: Ordered Repeat number: 1 Start: 12-24-2023 Lidocaine (Lid ocaine Pain Relief) 4 % adhesive patch,medicated Active 1 NMA TOPICAL DAILY as needed for pain December 24, 2023 2:45pm Start: 12-17-2023 End: 12-24-2023 Lidocaine (Lidocaine Pain Re lief) 4 % adhesive patch,medicated Discontinued NMA TOPICAL December 17, 2023 12:00am December 24, 2023 2:47pm linezolid 600 mg oral tablet (5 sources) Oxazolidinone Antibacterial Start: 12-23-2020 take 600 mg by mouth twice daily Linezolid 600 MG Oral twice a day Dec, Active loperamide hydrochloride 2 mg oral tablet (19 sources) Opioid Agonist Start: 11-24-2024 Loperamide (Anti-Diarrheal (Loperamide)) 2 mg tablet Active mg PO November 24, 2024 12:00am Start: 07-22-2024 loperamide 2 m g oral capsule Dose : 2 mg = 1 cap(s), Oral, q4h, PRN Diarrhea, 0 Refill(s) Start Date: 07/22/24 Status: Ordered Repeat number: 1 Start: 08-11-2021 take 2 mg by mouth e very six hours Loperamide Active 2 MG PO Q6H August 11, 2021 1:00am Magnesium Hydroxide (5 sources) Start: 12-23-2020 Magnesium Hydr oxide 400 MG/5ML Oral once a day *please review for potential _update for e-prescription and drug interaction check* Dec, Active Start: 12-23-2020 magnesium oxide 400 mg oral tablet (20 sources) Start: 07-22-2024 magnesium oxid e 400 mg oral tablet Dose : 400 mg = 1 tab(s), Oral, TID, 0 Refill(s) Start Date: 07/22/24 Status: Ordered Repeat number: 1 Start: 12-24-2023 End: 12-24-2023 magnesium oxide 400 mg oral tablet Dose : 400 mg = 1 tab(s), Oral, TID, 0 Refill(s) Start Date: 07/22/24 Status: Ordered Repeat number: 1 Start: 12-17-2023 End: 12-24-2023 Magnesium Oxide 400 mg (241. 3 mg magnesium) tablet Discontinued mg PO December 17, 2023 12:00am December 24, 2023 11:09am Start: 08-23-2021 take 400 mg by mouth twice daily Magnesium Oxide Active 400 MG PO 2 times per day August 23, 2021 1:00am take 1 tablet by daja once daily Magnesium Oxide 400 MG 1 tab Orally Once a day per [facility] med list Active melatonin 5 mg oral tablet (5 sources) Start: 07-22-2024 Melatonin 5 mg oral tablet Dose : 5 mg = 1 tab(s), Oral, qHS, PRN as needed for insomnia, # 60 tab(s), 0 Refill(s) Start Date: 07/22/24 Status: Ordered Quantity: 60.0 Unit: tab(s) Repeat number: 1 Start: 12-17-2023 End: 12-24-2023 Melatonin 5 mg oral tablet D ose : 5 mg = 1 tab(s), Oral, qHS, PRN as needed for insomnia, # 60 tab(s), 0 Refill(s) Start Date: 07/22/24 Status: Ordered Quantity: 60.0 Unit: tab(s) Repeat number: 1 24 hr metoprolol succinate 50 mg extended release oral tablet (20 sources) beta-Adrenergic Ivet Start: 12-17-2024 metopr olol succinate 50 mg oral TABLET extended release Dose : 50 mg = 1 tab(s), Oral, qDay, Do not crush or chew (controlled release), # 30 tab(s), 0 Refill(s) Start Date: 12/17/24 Status: Ordered Quantity: 30.0 Unit: tab(s) Repeat number: 1 Start: 09-25-2019 End: 09-25-2019 take 50 mg by mouth once daily Metoprolol Tartrate Dis continued 50 MG PO Daily September 25, 2019 12:00am September 25, 2019 8:34am Start: 09-25-2019 End: 08-11-2021 take 50 mg by mouth twice daily Metoprolol Tartrate Discontinued 50 MG PO 2 times per day September 25, 2019 12:00am August 11, 2021 11:29am midodrine hydrochloride 10 mg oral tablet (20 sources) alpha-Adrenergic Agonist Start: 11-24-2024 Midod rine 10 mg tablet Active 10 mg PO MOWEFR November 24, 2024 12:00am Start: 07-22-2024 take 1 tablet by daja three times daily Midodrine 5 mg tablet Active 5 mg PO .COMPLEX November 24, 2024 12:00am 5 mg orally TID SUTUTHUSAT; Start: 08-23-2021 Midodrine Acti ve 10 MG PO PRN August 23, 2021 1:00am Midodrine HCl 10 MG 1.5 tablets Orally As needed depending on BP reading. Active MISCELLANEOUS (19 sources) Start: 11-14-2018 Start: 11-14-2018 MISCELLANEOUS as directed: Diabetec shoes for patient. Dig: E11.9 Does Not Apply as directed *please review for potential _update for e-prescription and drug interaction check* November, Active Start: 11-14-2018 Miscellaneous Medical Supply kit (2 sources) Start: 01-09-2024 Miscellaneous Medical Supply kit Active 1 NMA MC As Directed January 09, 2024 12:00am Bedpan Diagnosis: Fecal incontinence R15.9 Start: 01-09-2024 Miscellaneous Medical Supply kit Active 1 NMA MC As Directed January 09, 2024 12:00am Nicholas lift sling Diagnosis: Below-knee amputation of both lower extremities S88.111D/S88.112D montelukast 10 mg oral tablet (20 sources) Leukotriene Receptor Antagonist Start: 09-25-2019 take 1 tablet by mouth once daily Montelukast (Singulair) 10 mg tablet Active 10 MG PO Daily September 25, 2019 12:00am nystatin 100 unt/mg topical ointment (16 sources) Polyene Antifungal Start: 11-24-2024 Nystatin 10 0,000 unit/gram ointment Active NMA TOPICAL November 24, 2024 12:00am Start: 07-22-2024 Mycostatin 100 ,000 units/g topical ointment Apply 1 dina, Topical, QID, 0 Refill(s), 108.8 Start Date: 07/22/24 Status: Ordered Repeat number: 1 Start: 03-14-2022 take 5 mL by mouth f our times daily Nystatin 138539 UNIT/ML 5ml - swish and retain for as long as possible before discarding Mouth/Throat Four times a day for 7 days Feb, Active take 4 mL by mouth f our times daily ondansetron 4 mg oral tablet (7 sources) Serotonin-3 Receptor Antagonist Start: 11-24-2024 take 2 tablets by mouth once daily Ondansetron Hcl 4 mg tablet Active 8 mg PO DAILY November 24, 2024 2:17pm Patient takes before dialysis; Saturday, Saturday, Saturday Start: 12-17-2023 End: 11-24-2024 ondansetron 4 mg oral tablet Dose : 8 mg = 2 tab(s), Oral, Sat/Sat/Sat, Before dialysis, 0 Refill(s) Start Date: 07/22/24 Status: Ordered Repeat number: 1 pantoprazole 40 mg delayed release oral tablet (20 sources) Proton Pump Inhibitor Start: 07-22-2024 take 1 tablet by mouth twice daily Pantoprazole 40 mg tablet,delayed release (DR/EC) Active 40 mg PO TWICE A DAY November 24, 2024 2:20pm Start: 12-17-2023 End: 11-24-2024 take 1 tablet by mouth once daily Pantoprazole 40 mg tablet,delayed release (DR/EC) Discontinued 40 mg PO daily December 24, 2023 2:47pm November 24, 2024 2:26pm Start: 09-25-2019 take 1 tablet by daja th once daily Pantoprazole (Protonix) 40 mg tablet,delayed release (DR/EC) Active 40 MG PO Daily September 25, 2019 12:00am Pantoprazole (Protonix) 40 mg tablet,delayed release (DR/EC) (6 sources) Start: 09-25-2019 take 1 tablet by mouth once daily Pantoprazole (Protonix) 40 mg tablet,delayed release (DR/EC) Active 40 MG PO Daily September 24, 2019 11:00pm Start: 09-25-2019 take 1 tablet by daja th once daily Pantoprazole (Protonix) 40 mg tablet,delayed release (DR/EC) Active 40 MG PO Daily September 25, 2019 12:00am polyethylene glycol 3350 26012 mg powder for oral solution (4 sources) Osmotic Laxative Start: 12-17-2024 MiraLax oral powder for reconstitution Dose : 17 gram(s) =, Oral, Sat/Sat/Sat, # 238 gram(s), 0 Refill(s) Start Date: 12/17/24 Status: Ordered Quantity: 238.0 Unit: g Repeat number: 1 Start: 11-24-2024 Polyethylene G lycol 3350 17 gram/dose powder Active g PO daily November 24, 2024 2:19pm Give after dialysis /Saturday and PRN Start: 07-22-2024 take 17 doses by once daily as needed for constipation polyethylene glycol 3350 oral powder for reconstitution Dose : 17 gram(s) =, Oral, Daily, PRN Constipation, 0 Refill(s) Start Date: 07/22/24 Status: Ordered Repeat number: 1 potassium 99 mg extended release oral tablet (8 sources) take 1 tablet by mouth once daily Potassium 99 MG 1 tablet Orally Once a day Active potassium chloride 20 meq extended release oral tablet (20 sources) Start: 10-04-2020 End: 08-11-2021 take 20 mEq by mouth once daily Potassium Chloride Active 20 MEQ PO Daily August 11, 2021 1:00am Precision Xtra Blood Glucose (19 sources) Start: 05-30-2020 Start: 05-30-2020 Precision Xtra Blood Glucose four times a day In Vitro four times a day May, Active Start: 05-30-2020 predniSONE 20 mg oral tablet (1 source) Start: 07-24-2024 End: 07-29-2024 predniSONE 20 mg oral tablet Dose : 40 mg = 2 tab(s), Oral, qDayM, Last day 07/29/24, X 5 day(s), # 10 tab(s), 0 Refill(s), 07/29/24 4:14:00 PM EST, other reason (Rx) Start Date: 07/24/24 Stop Date: 07/29/24 Status: Ordered Quantity: 10.0 Unit: tab(s) Repeat number: 1 promethazine hydrochloride 25 mg oral tablet (19 sources) Phenothiazine take 1 tablet by mouth every six hours as needed for nausea and vomiting Promethazine HCl 25 MG TAKE 1 TABLET BY MOUTH EVERY 6 HOURS NEEDED FOR NAUSEA AND VOMITING for 10 Active sodium bicarbonate 650 mg oral tablet (20 sources) Start: 08-23-2021 take 650 mg by mouth three times daily Sodium Bicarbonate Active 650 MG PO 3 times per day August 23, 2021 1:00am Sodium Chloride (20 sources) Start: 07-22-2024 sodium chlorid e nasal spray Dose = 1 spray(s), Nostril, each, AsDirected, PRN dry nasal passage, 0 Refill(s) Start Date: 07/22/24 Status: Ordered Repeat number: 1 Start: 06-04-2024 Sodium Chlorid e (Deep Sea Nasal) 0.65 % aerosol,spray Active NMA INTRANASAL December 17, 2023 12:00am Start: 08-23-2021 take 1000 mg by mout h three times daily Sodium Chloride Active 1000 MG PO 3 times per day August 23, 2021 1:00am tamsulosin hydrochloride 0.4 mg oral capsule (20 sources) alpha-Adrenergic Ivet Start: 07-22-2024 tamsu losin 0.4 mg oral capsule Dose : 0.4 mg = 1 cap(s), Oral, qDay, # 30 cap(s), 0 Refill(s) Start Date: 07/22/24 Status: Ordered Quantity: 30.0 Unit: cap(s) Repeat number: 1 Start: 12-17-2023 End: 12-24-2023 tamsulosin 0.4 mg oral capsu le Dose : 0.4 mg = 1 cap(s), Oral, qDay, # 30 cap(s), 0 Refill(s) Start Date: 07/22/24 Status: Ordered Quantity: 30.0 Unit: cap(s) Repeat number: 1 Start: 08-23-2021 Tamsulosin Act flaco 0.4 MG Daily August 23, 2021 1:00am True Metrix Blood Glucose Te st (19 sources) Start: 11-19-2018 Start: 11-19-2018 True Metrix Bl ood Glucose Test four times a day In Vitro four times a day November, Active Start: 11-19-2018 True Metrix Meter (19 sources) Start: 11-19-2018 Start: 11-19-[address] four times a day Does Not Apply four times a day November, Active Start: 11-19-2018 V-Go 30 (5 sources) Start: 06-07-2020 V-Go 30 Does N ot Apply as directed May, Active Start: 06-07-2020 Completed/Discontinued Medications Medication Drug Class(es) Dates Sig (Normalized) Sig (Original) [id number] 200 actuat albuterol 0.09 mg/actuat metered dose inhaler (20 sources) beta2-Adrenergic Agonist Start: 12-24-2023 End: 11-24-2024 Albuterol Sulfate 90 mcg/actuation HFA aerosol inhaler Discontinued 1 NMA INHALATION EVERY 6-8 HOURS as needed for shortness of breath or wheezing 8.5 January 27, 2024 8:26am November 24, 2024 2:24pm Start: 12-17-2023 End: 12-24-2023 Albuterol Sulfate 90 mcg/act uation HFA aerosol inhaler Discontinued INHALATION December 17, 2023 12:00am December 24, 2023 2:47pm take 1-2 puff(s) by mouth every four to six hours as needed ProAir HFA 108 (90 Base) MCG/ACT inhale 1-2 puffs BY MOUTH EVERY 4 TO 6 HOURS NEEDED for 30 Active B Complex-Vitamin C-Folic Acid (Dialyvite 800) 0.8 mg tablet (15 sources) Start: 09-25-2019 End: 08-23-2021 take 1 tablet by mouth once daily B Complex-Vitamin C-Folic Acid (Dialyvite 800) 0.8 mg tablet Discontinued 1 TAB PO Daily September 25, 2019 12:00am August 23, 2021 12:37pm Start: 09-25-2019 End: 08-23-2021 take 1 tablet by mouth once daily B Complex-Vitamin C-Folic Acid (Dialyvite 800) 0.8 mg tablet Discontinued 1 TAB PO Daily September 24, 2019 11:00pm August 23, 2021 11:37am baclofen 5 mg oral tablet (2 sources) gamma-Aminobutyric Acid-ergic Agonist Start: 07-12-2021 End: 07-26-2021 take 1 tablet by mouth three times daily Baclofen 5 MG 1 tablet Orally Three times a day for hiccups for 14 days Jun, Jul, Active bismuth subsalicylate 262 mg chewable tablet (17 sources) Bismuth Start: 09-25-2019 End: 08-11-2021 take 2 tablets by mouth every twenty-four hours Bismuth Subsalicylate (Pepto-Bismol) 262 mg tablet,chewable Discontinued 2 TAB PO every 30-60 minutes September 25, 2019 12:00am August 11, 2021 11:27am do not exceed 16 tabs per 24 hrs calcium acetate 667 mg oral capsule (20 sources) Start: 12-08-2019 End: 08-11-2021 take 667 mg by mouth four times daily Calcium Acetate(Phosphat Bind) Discontinued 667 MG PO 4 times per day October 04, 2020 12:00am August 11, 2021 11:28am Start: 12-08-2019 take 2 capsules by m outh every eight hours Start: 09-25-2019 End: 08-11-2021 take 1334 mg by mouth three times daily Calcium Acetate Discontinued 1334 MG PO 3 times per day September 25, 2019 12:00am August 11, 2021 11:28am cetirizine hydrochloride 10 mg oral capsule (17 sources) Histamine-1 Receptor Antagonist Start: 09-25-2019 End: 10-04-2020 take 10 mg by mouth once daily Cetirizine Discontinued 10 MG PO Daily September 25, 2019 12:00am October 04, 2020 8:00am ciprofloxacin 250 mg oral tablet (2 sources) Quinolone Antimicrobial Start: 12-17-2023 End: 01-23-2024 take 1 tablet by mouth once daily Ciprofloxacin Hcl 250 mg tablet Discontinued 250 mg PO daily January 06, 2024 2:14pm January 23, 2024 12:41pm diclofenac sodium 0.01 mg/mg topical gel (1 source) Nonsteroidal Anti-inflammatory Drug Start: 01-21-2024 End: 11-24-2024 Diclofenac Sodium (Voltaren Arthritis Pain) 1 % gel Discontinued 2 g TOPICAL EVERY 8 HOURS NEEDED as needed for pain 100 7 January 21, 2024 4:03pm November 24, 2024 2:25pm docusate sodium 100 mg oral tablet (20 sources) Start: 12-17-2023 End: 11-24-2024 take 1 capsule by mouth twice daily Docusate Sodium 100 mg capsule Discontinued 100 mg PO TWICE A DAY December 17, 2023 12:00am November 24, 2024 2:25pm Start: 08-11-2019 End: 08-23-2021 take 1 capsule by mouth once daily Docusate Sodium (Colace) 100 mg capsule Discontinued 100 MG PO Daily September 25, 2019 12:00am August 23, 2021 12:56pm Epoetin Loyd 28161 UNIT/ML (19 sources) Start: 05-23-2020 Epoetin Loyd 2 0000 UNIT/ML Given during dialysis, per [facility] Records. Injection *please review for potential _update for e-prescription and drug interaction check* May, Not-Taking Start: 05-23-2020 Start: 05-23-2020 Epoetin Loyd 2 0000 UNIT/ML Given during dialysis, per [facility] Records. Injection *please review for potential _update for e-prescription and drug interaction check* May, Active Start: 05-23-2020 gabapentin 300 mg oral capsule (20 sources) Anti-epileptic Agent Start: 12-17-2023 gabapenti n 300 mg oral capsule Dose : 300 mg = 1 cap(s), qDay, 0 Refill(s), 108.8 Start Date: 07/22/24 Status: Ordered Repeat number: 1 Start: 03-22-2022 take 1 capsule by mo ut twice daily Gabapentin 300 MG 1 capsule Oral Twice day for 90 days Mar, Active Start: 03-06-2022 take 1 capsule by mo uth twice daily Gabapentin 300 MG 1 capsule Oral Twice day for 90 days Feb, Active Start: 01-09-2022 take 1 capsule by mo ut once daily in the morning Gabapentin 300 MG 1 capsule Oral every morning for 90 days Dec, Active Start: 09-04-2021 take 1 capsule by mo ut once daily in the morning Start: 12-23-2020 take 1 capsule by mo ut once daily in the morning Gabapentin 300 MG 1 capsule Oral every morning Dec, Active Start: 09-25-2019 take 1 tablet by daja once daily Gabapentin (Neurontin) 600 mg tablet Active 600 MG PO Daily September 25, 2019 12:00am 3 ml insulin glargine 100 unt/ml pen injector (15 sources) Insulin Analog Start: 12-17-2023 End: 11-24-2024 Insulin Glargine (Lantus Solostar U-100 Insulin) 100 unit/mL (3 mL) insulin pen Discontinued U SC December 17, 2023 12:00am November 24, 2024 2:26pm Lantus SoloStar 100 UNIT/ML INJECT 40 UNITS SUBCUTANEOUSLY TWICE DAILY *max daily DOSE 80 Units* for 18 Active linagliptin 5 mg oral tablet (17 sources) Dipeptidyl Peptidase 4 Inhibitor Start: 09-25-2019 End: 10-04-2020 take 5 mg by mouth once daily Linagliptin Discontinued 5 MG PO Daily September 25, 2019 12:00am October 04, 2020 7:57am lisinopril 10 mg oral tablet (17 sources) Angiotensin Converting Enzyme Inhibitor Start: 09-25-2019 End: 08-11-2021 take 10 mg by mouth once daily Lisinopril Discontinued 10 MG PO Daily September 25, 2019 12:00am August 11, 2021 11:29am mupirocin 20 mg/ml topical cream (1 source) RNA Synthetase Inhibitor Antibacterial Start: 12-17-2024 mupirocin 2% topical cream Apply 1 dina, Topical, qDay, 0 Refill(s), 113.6 Start Date: 12/17/24 Status: Ordered Repeat number: 1 Polyethylene Glycol 3350 17 gram/dose powder (1 source) Start: 12-17-2023 End: 11-24-2024 Polyethylene Glycol 3350 17 gram/dose powder Discontinued g PO daily December 17, 2023 12:00am November 24, 2024 2:26pm sevelamer carbonate 800 mg oral tablet (15 sources) Phosphate Binder Start: 10-04-2020 End: 08-23-2021 take 1600 mg by mouth three times daily Sevelamer Carbonate Discontinued 1600 MG PO 3 times per day October 04, 2020 12:00am August 23, 2021 12:50pm traMADol hydrochloride 50 mg oral tablet (1 source) Opioid Agonist Start: 12-17-2023 End: 01-09-2024 take 1 tablet by mouth twice daily as needed Tramadol 50 mg tablet Discontinued 50 mg PO TWICE A DAY as needed December 17, 2023 12:00am January 09, 2024 1:38pm Problems Active Problems Problem Classification Problem Date Documented Da te Episodic/Chronic Acute and unspecified renal failure (1 source) Acute kidney failure, unspecified; Translations: [Acute kidney failure, unspecified] Onset: 5 Episodic Alcohol-related disorders (19 sources) Alcohol dependence; Translations: [Alcoh Dep Nec/nos-Unspec] Onset: 4 Chronic Asthma (19 sources) Mild intermittent asthma; Translations: [Mild intermittent asthma, uncomplicated] Onset: 2 Chronic Cardiac dysrhythmias (3 sources) Atrial fibrillation; Translations: [Unspecified atrial fibrillation] Onset: 5 12-08-2024 Chronic Cardiac dysrhythmias (2 sources) Tachycardia; Translations: [Tachycardia, unspecified] Onset: 5 12-08-2024 Episodic Chronic kidney disease (20 sources) Chronic kidney disease stage 5; Translations: [Chronic kidney disease, stage 5] Onset: 9 Resolved: 2 Chronic Chronic obstructive pulmonary disease and bronchiectasis (20 sources) Chronic obstructive lung disease; Translations: [Chronic obstructive pulmonary disease, unspecified] Onset: 8 02-17-2024 Chronic Chronic ulcer of skin (19 sources) Chronic ulcer of foot; Translations: [Non-pressure chronic ulcer of other part of unspecified foot with unspecified severity] Chronic Complication of device; implant or graft (12 sources) Significant coronary bypass graft disease; Translations: [Atherosclerosis of coronary artery bypass graft(s) without angina pectoris] Onset: 0 Chronic Congestive heart failure; nonhypertensive (19 sources) Heart failure; Translations: [Heart failure, unspecified] Onset: 0 Chronic Coronary atherosclerosis and other heart disease (4 sources) Coronary arteriosclerosis; Translations: [Atherosclerotic heart disease of lime coronary artery without angina pectoris] Onset: 5 12-08-2024 Chronic Coronary atherosclerosis and other heart disease (2 sources) Presence of aortocoronary bypass graft; Translations: [Presence of aortocoronary bypass graft] Onset: 5 Episodic Diabetes mellitus with complications (20 sources) 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; Translations: [Type 2 diabetes mellitus with diabetic neuropathic arthropathy] Onset: 2 Resolved: 2 Chronic Diabetes mellitus without complication (4 sources) Type 2 diabetes mellitus without complications; Translations: [Diabetes mellitus] Onset: 3 12-08-2024 Chronic Disorders of lipid metabolism (20 sources) Hyperlipidemia; Translations: [Hyperlipidemia, unspecified] Onset: 2 12-08-2024 Chronic Esophageal disorders (19 sources) Gastroesophageal reflux disease without esophagitis; Translations: [Gastro-esophageal reflux disease without esophagitis] Onset: 4 Chronic Essential hypertension (20 sources) Essential hypertension; Translations: [Essential (primary) hypertension] Onset: 2 Resolved: 2 Chronic Hypertension with complications and secondary hypertension (2 sources) Hypertensive heart and chronic kidney disease with heart failure and with stage 5 chronic kidney disease, or end stage renal disease; Translations: [Hypertensive chronic kidney disease with stage 5 chronic kidney disease or end stage renal disease] Onset: 3 Chronic Infective arthritis and osteomyelitis (except that caused by tuberculosis or sexually transmitted disease) (19 sources) Chronic osteomyelitis of foot; Translations: [Other chronic osteomyelitis, unspecified ankle and foot] Chronic Malaise and fatigue (20 sources) Asthenia; Translations: [Other malaise] Onset: 2 Resolved: 2 Episodic Open wounds of extremities (1 source) Amputated below knee; Translations: [Complete traumatic amputation at level between knee and ankle, right lower leg, initial encounter] 12-17-2023 Chronic Other and ill-defined heart disease (2 sources) Left ventricular systolic dysfunction; Translations: [Other ill-defined heart diseases] 12-08-2024 Chronic Other and ill-defined heart disease (2 sources) Other ill-defined heart diseases; Translations: [Other ill-defined heart diseases] Onset: 5 Chronic Other bone disease and musculoskeletal deformities (2 sources) 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; Translations: [Acquired absence of left leg below knee] 12-08-2024 Chronic Other bone disease and musculoskeletal deformities (1 source) Acquired absence of left leg below knee; Translations: [Acquired absence of left leg below knee] Onset: 5 Chronic Other bone disease and musculoskeletal deformities (1 source) Acquired absence of right leg below knee; Translations: [Acquired absence of right leg below knee] Onset: 5 Chronic Other gastrointestinal disorders (1 source) Other ascites; Translations: [Other ascites] Onset: 5 Episodic Other gastrointestinal disorders (1 source) Abdominal distension (gaseous); Translations: [Abdominal distension (gaseous)] Onset: 5 Episodic Other hereditary and degenerative nervous system conditions (19 sources) Idiopathic peripheral autonomic neuropathy; Translations: [Other idiopathic peripheral autonomic neuropathy] Onset: 2 Chronic Other non-traumatic joint disorders (9 sources) Shoulder pain; Translations: [Pain in left shoulder] Episodic Other non-traumatic joint disorders (9 sources) Bilateral chronic pain of upper limbs; Translations: [Pain in right shoulder] Episodic Other non-traumatic joint disorders (4 sources) Pain in left shoulder; Translations: [Left shoulder pain] Onset: 5 12-03-2024 Episodic Other nutritional; endocrine; and metabolic disorders (19 sources) Hypomagnesemia; Translations: [Hypomagnesemia] Onset: 0 Chronic Other screening for suspected conditions (not mental disorders or infectious disease) (1 source) Abnormal electrocardiogram [ECG] [EKG]; Translations: [Abnormal electrocardiogram [ECG] [EKG]] Onset: 5 Episodic Other upper respiratory disease (19 sources) Allergic rhinitis; Translations: [Allergic rhinitis, unspecified] Onset: 8 Chronic Residual codes; unclassified (1 source) Central sleep apnea syndrome; Translations: [Primary central sleep apnea] 01-22-2024 Chronic Residual codes; unclassified (1 source) Dependence on wheelchair; Translations: [Dependence on wheelchair] 01-24-2024 Chronic Residual codes; unclassified (1 source) Primary central sleep apnea; Translations: [Primary central sleep apnea] Onset: 4 Chronic Skin and subcutaneous tissue infections (20 sources) Localized infection of skin AND/OR subcutaneous tissue; Translations: [Local infection of the skin and subcutaneous tissue, unspecified] Onset: 2 Resolved: 2 Episodic Substance-related disorders (12 sources) Tobacco user; Translations: [Nicotine dependence, chewing tobacco, uncomplicated] Chronic Unclassified (19 sources) Elevation of levels of liver transaminase levels; Translations: [Elevation of levels of liver transaminase levels] Onset: 0 Past or Other Problems Problem Classification Problem Date Documented Da te Episodic/Chronic Administrative/social admission (3 sources) Other reduced mobility; Translations: [Impaired mobility and activities of daily living] Onset: 02-03-2024 01-24-2024 Episodic Conditions associated with dizziness or vertigo (19 sources) Peripheral vertigo; Translations: [Other peripheral vertigo, bilateral] Onset: 06-24-2019 Episodic Deficiency and other anemia (1 source) Anemia, unspecified; Translations: [Anemia, unspecified] Onset: 11-26-2022 Episodic Fracture of lower limb (20 sources) Unspecified fracture of right toe(s), subsequent encounter for fracture with routine healing; Translations: [Displaced transverse fracture of shaft of unspecified fibula, subsequent encounter for closed fracture with routine healing] Onset: 03-29-2016 Episodic Genitourinary symptoms and ill-defined conditions (1 source) Dysuria Onset: 09-07-2021 Resolved: 09-07-2021 Episodic Noninfectious gastroenteritis (19 sources) Noninfectious gastroenteritis; Translations: [Noninf Gastroenterit Nec] Onset: 09-20-2011 Resolved: 10-16-2021 Episodic Other connective tissue disease (19 sources) Muscle weakness; Translations: [Muscle weakness (generalized)] Onset: 09-14-2020 Episodic Other connective tissue disease (19 sources) Disorder of muscle; Translations: [Disorder of muscle, unspecified] Onset: 01-18-2020 Episodic Other connective tissue disease (1 source) Muscle weakness (generalized) Onset: 10-19-2021 Resolved: 10-19-2021 Episodic Other connective tissue disease (1 source) Other symptoms and signs involving the nervous system; Translations: [Other symptoms and signs involving the nervous system] Onset: 01-24-2024 Episodic Other gastrointestinal disorders (19 sources) Diarrhea; Translations: [Diarrhea, unspecified] Onset: 12-05-2017 Episodic Other gastrointestinal disorders (19 sources) Constipation; Translations: [Other constipation] Onset: 08-12-2019 Episodic Other gastrointestinal disorders (1 source) Full incontinence of feces; Translations: [Full incontinence of feces] Onset: 01-09-2024 Episodic Other lower respiratory disease (19 sources) Hiccoughs; Translations: [Hiccough] Onset: 11-15-2014 Resolved: 03-08-2015 Episodic Other lower respiratory disease (1 source) Hiccough Onset: 07-12-2021 Resolved: 07-12-2021 Episodic Other lower respiratory disease (1 source) Shortness of breath; Translations: [Shortness of breath] Onset: 02-28-2024 Episodic Other non-traumatic joint disorders (19 sources) Arthralgia of the ankle and/or foot; Translations: [Pain in right ankle and joints of right foot] Onset: 03-22-2016 Episodic Pneumonia (except that caused by tuberculosis or sexually transmitted disease) (19 sources) Bacterial pneumonia; Translations: [Unspecified bacterial pneumonia] Onset: 05-11-2019 Episodic Residual codes; unclassified (19 sources) Sleep disorder; Translations: [Sleep disorder, unspecified] Onset: 09-22-2019 Episodic Residual codes; unclassified (7 sources) Tobacco user; Translations: [Tobacco Use Disorder] Onset: 04-15-2014 Episodic Septicemia (except in labor) (19 sources) Sepsis due to methicillin resistant Staphylococcus aureus; Translations: [Sepsis due to Methicillin resistant Staphylococcus aureus] Onset: 03-30-2020 Episodic Spondylosis; intervertebral disc disorders; other back problems (19 sources) Low back pain; Translations: [Low back pain] Onset: 03-05-2016 Episodic Superficial injury; contusion (19 sources) Contusion of toe; Translations: [Contusion of toe] Onset: 12-26-2013 Resolved: 10-16-2021 Episodic Urinary tract infections (1 source) Urinary tract infection, site not specified Onset: 09-07-2021 Resolved: 09-07-2021 Episodic Results Test Name Value Interpretation Reference Range Facility Cardiology Visit Reporton Cardiology Visit Report [facility] [address] [place] [address] OFFICE VISIT Date of Service: 12/08/24 MR#: [id number] Acct: [id number] Name: AGSUTO MONSALVE Rep #: [id number] : 1975 Provider: Dr. Tiburcio Osborne MD Age/Sex: 49/M Location: [facility] [place] Status: Signed HPI HPI History of Present Illness Details: This gentleman has been referred to us for establishing cardiac care. Patient has a complex past medical history. 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 Patient denies any chest pains. He has occasional shortness of breath. Denies orthopnea or PND. Denies any palpitations. He has been prescribed midodrine as according to him, sometimes his blood pressure drops. Denies any history of CVA or TIA. Denies any history of abnormal bleeding. Intake Vital Signs 02/09/24 15:14 12/08/24 08:32 Height 4 ft 11 in 4 ft 11 in Weight: 240 lb BMI 48.4 BP 131/88 H Blood Pressure Location Lt brachial Position Sitting Respiration 18 Pulse 103 H Pulse Source NIBP Intake Visit Reasons: Abnormal EKG Pulverizing And Sifting Operator Required: No Accompanied by: Self Is patient in pain?: No Allergies No Known Allergies Allergy (Verified 12/08/24 11:18) Medications ???Medication ???Instructions ???Recorded ???Confirmed ???Type diphenhydramine HCl 25 mg capsule 25 mg PO QHS 12/17/23 12/03/24 Hi story (Banophen) fluticasone 250 mcg-salmeterol 50 1 ea inhalation BID 12/17/2311/13 History mcg/dose blistr powdr for inhalation (Advair Diskus) fluticasone propionate 50 intranasal 12/17/23 12/03/24 Histo ry mcg/actuation nasal spray,suspension gabapentin 300 mg capsule 300 mg PO QDAY 12/17/23 12/03/24 H istory handicap placard #1 ea 12/17/23 12/08/24 Rx sodium chloride 0.65 % nasal spray spray intranasal 12/17/23 History aerosol (Deep Sea Nasal) atorvastatin 40 mg tablet 40 mg PO QDAY #90 tabs 12/24/23 Rx cyclobenzaprine 10 mg tablet 10 mg PO QHS #90 tabs 12/24/23 Rx lidocaine 4 % topical patch 1 patch topical DAILY PRN pain #30 12/24/23 12/03/24 Rx (Lidocaine Pain Relief) ea magnesium oxide 400 mg (241.3 mg 400 mg PO TID #90 tabs 12/24/23 Rx magnesium) tablet melatonin 5 mg tablet 5 mg PO QHS #90 tabs 12/24/2311/13 Rx tamsulosin 0.4 mg capsule 0.4 mg PO QDAY #90 caps 12/24/23 0 12/03/24 Rx flash glucose scanning reader #1 ea 01/09/24 12/08/24 Rx (FreeStyle Bianca 2 [place]) flash glucose sensor (FreeStyle #1 ea 01/09/24 12/08/24 Rx Bianca 2 Sensor kit) miscellaneous medical supply 1 ea miscellaneous DIRECTED #6 01/09/24 12/08/24 Rx ea miscellaneous medical supply 1 ea miscellaneous DIRECTED 12/08/24 Rx bowel incontinence #1 ea incontinence pad, liner, disp #80 ea 01/14/24 12/08/24 Rx acetaminophen 500 mg tablet 1,000 mg PO Q8H PRN PRN 11/24/24 0 12/03/24 History (Tylenol Extra Strength) amlodipine 5 mg tablet 5 mg PO SUTUTHSA 11/24/24 12/03/24 History ciclopirox 8 % topical solution topical 11/24/24 12/03/24 History famotidine 40 mg tablet 40 mg PO QDAY 11/24/24 12/03/24 Hi story hydralazine 50 mg tablet 50 mg PO .COMPLEX 11/24/24 5 History hydralazine 50 mg tablet 50 mg PO QPM 11/24/24 12/03/24 His tory lidocaine HCl 4 % topical cream 1 applic topical BID 11/24/2411/13 History (Aspercreme (lidocaine HCl)) loperamide 2 mg tablet mg PO 11/24/24 12/03/24 History (Anti-Diarrheal (loperamide)) midodrine 10 mg tablet 10 mg PO MOWEFR 11/24/24 12/03/24 History midodrine 5 mg tablet 5 mg PO .COMPLEX 11/24/24 12/03/24 History nystatin 100,000 unit/gram topical applic topical 11/24/24 12/03/24 History ointment ondansetron HCl 4 mg tablet 8 mg PO DAILY 11/24/24 12/08/24 Hi story pantoprazole 40 mg tablet,delayed 40 mg PO BID 11/24/24 12/08/24 Hi story release polyethylene glycol 3350 17 g PO QDAY 11/24/24 12/03/24 Histor y gram/dose oral powder Ejection fraction %: 40 Have you fallen in the past year?: No [facility] History (Updated 12/08/24 @ 12:[address] 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 Normal [facility] Orthopedic Visit Reporton Orthopedic Visit Report [facility] [address] [place] [address] [address] [place] [address] OFFICE VISIT Date of Service: 12/03/24 MR#: [id number] Acct: [id number] Name: AGUSTO MONSALVE Rep #: [id number] : 1975 Provider: Dr. Agusto rivera MD Age/Sex: 49/M Location: [facility] Status: Signed Intake Vital Signs 02/09/24 15:14 12/03/24 13:01 Height 4 ft 11 in 4 ft 11 in Weight: 240 lb BMI 48.4 Intake Visit Reasons: LEFT SHOULDER Chief Complaint: Left shoulder pain Accompanied by: Self Is patient in pain?: Yes Pain scale (1-10): 9 Allergies No Known Allergies Allergy (Verified 12/03/24 13:04) Medications ???Medication ???Instructions ???Recorded ???Confirmed ???Type diphenhydramine HCl 25 mg capsule 25 mg PO QHS 12/17/23 12/03/24 Hi story (Banophen) fluticasone 250 mcg-salmeterol 50 1 ea inhalation BID 12/17/2311/13 History mcg/dose blistr powdr for inhalation (Advair Diskus) fluticasone propionate 50 intranasal 12/17/23 12/03/24 Histo ry mcg/actuation nasal spray,suspension gabapentin 300 mg capsule 300 mg PO QDAY 12/17/23 12/03/24 H istory handicap placard #1 ea 12/17/23 12/03/24 Rx sodium chloride 0.65 % nasal spray spray intranasal 12/17/23 History aerosol (Deep Sea Nasal) atorvastatin 40 mg tablet 40 mg PO QDAY #90 tabs 12/24/23 Rx cyclobenzaprine 10 mg tablet 10 mg PO QHS #90 tabs 12/24/23 Rx lidocaine 4 % topical patch 1 patch topical DAILY PRN pain #30 12/24/23 12/03/24 Rx (Lidocaine Pain Relief) ea magnesium oxide 400 mg (241.3 mg 400 mg PO TID #90 tabs 12/24/23 Rx magnesium) tablet melatonin 5 mg tablet 5 mg PO QHS #90 tabs 12/24/2311/13 Rx tamsulosin 0.4 mg capsule 0.4 mg PO QDAY #90 caps 12/24/23 0 12/03/24 Rx flash glucose scanning reader #1 ea 01/09/24 12/03/24 Rx (FreeStyle Bianca 2 [place]) flash glucose sensor (FreeStyle #1 ea 01/09/24 12/03/24 Rx Bianca 2 Sensor kit) miscellaneous medical supply 1 ea miscellaneous DIRECTED #6 01/09/24 12/03/24 Rx ea miscellaneous medical supply 1 ea miscellaneous DIRECTED 12/03/24 Rx bowel incontinence #1 ea incontinence pad, liner, disp #80 ea 01/14/24 12/03/24 Rx acetaminophen 500 mg tablet 1,000 mg PO Q8H PRN PRN 11/24/24 0 12/03/24 History (Tylenol Extra Strength) amlodipine 5 mg tablet 5 mg PO SUTUTHSA 11/24/24 12/03/24 History ciclopirox 8 % topical solution topical 11/24/24 12/03/24 History famotidine 40 mg tablet 40 mg PO QDAY 11/24/24 12/03/24 Hi story hydralazine 50 mg tablet 50 mg PO .COMPLEX 11/24/24 5 History hydralazine 50 mg tablet 50 mg PO QPM 11/24/24 12/03/24 His tory lidocaine HCl 4 % topical cream 1 applic topical BID 11/24/2411/13 History (Aspercreme (lidocaine HCl)) loperamide 2 mg tablet mg PO 11/24/24 12/03/24 History (Anti-Diarrheal (loperamide)) midodrine 10 mg tablet 10 mg PO MOWEFR 11/24/24 12/03/24 History midodrine 5 mg tablet 5 mg PO .COMPLEX 11/24/24 12/03/24 History nystatin 100,000 unit/gram topical applic topical 11/24/24 12/03/24 History ointment ondansetron HCl 4 mg tablet 8 mg PO DAILY 11/24/24 12/03/24 Hi story pantoprazole 40 mg tablet,delayed 40 mg PO BID 11/24/24 12/03/24 Hi story release polyethylene glycol 3350 17 g PO QDAY 11/24/24 12/03/24 Histor y gram/dose oral powder Have you fallen in the past year?: No PFSH Medical History (Updated 12/03/24 @ 13:19 by Agusto Rogers MD) Left shoulder pain Sleep apnea Unspecified viral hepatitis B without hepatic coma Hypotension Tachycardia GERD (gastroesophageal reflux disease) Cataracts, bilateral Hypocalcemia Hepatitis IBS (irritable bowel syndrome) Peritoneal dialysis catheter site infection CAD (coronary artery disease) Peritonitis Recurrent UTI Urinary retention Neuropathy COPD (chronic obstructive pulmonary disease) Hyperlipidemia due to type 2 diabetes mellitus Hypertension Dialysis patient Diabetes Surgical History History of left heart catheterization (05/18/19) S/P bilateral BKA (below knee amputation) Port-A-Cath in place S/P arteriovenous (AV) fistula creation Hx of CABG ( 2019) Amputation leg, bilat H/O local excision of skin lesion H/O hernia repair Family History Father Heart disease Hypertension Hyperlipidemia Grandmother Heart disease Diabetes Mother MVA (motor vehicle accident) Brother Cancer lymphoma Social History adopted: No household members: family and other details: niece and niece's husb (more content not included)... Normal [facility] Shoulder min 2 Viewson 12-03 Shoulder min 2 Views [facility] Imaging Services [address] [place] [address] Shoulder min 2 Views MR#: [id number] Acct: [id number] Name: GRICELAGUSTO SORIA ANNY Rep #: [id number] : 1975 M 49 From: Kirk Poole MD PCP: Status: DEP AMB Study: Shoulder min 2 Views Date of Exam: 12/03/24 Exam# [id number] Ordering Dr: Agusto Rogers MD PROCEDURE: SHOULDER MIN 2 VIEWS 12/03/2024 REASON FOR EXAM: ACUTE PAIN, UNKNOWN INJURY TECHNIQUE: Four views left shoulder COMPARISON: None available FINDINGS: No fracture or dislocation. The joint spaces appear within limits. Very mild acromioclavicular joint osteoarthrosis. Vascular calcifications with a partially imaged vascular stent. Status post CABG. RAD/Shoulder min 2 Views IMPRESSION: Very mild acromioclavicular joint osteoarthrosis. Reading Location: [id number] CC: Dr. Agusto Rogers MD Leadership Program Intern: Signed Normal [facility] Absolute lymphocyte countOrd ered By: Ton Vasquez on 11-06-2024 Lymphocytes Auto (Unsp spec) [#/Vol] 1.39 10*3/uL 0.83-4.51 [facility] Absolute neutrophil countOrd ered By: [facility] Vasquez on 11-06-2024 Neutrophils (Bld) [#/Vol] 6.9 10*3/uL 2.0-7.7 [facility] Automated lymphocyte count a s percentage of total leukocytesOrdered By: Ton Vasquez on 11-06-2024 Lymphocytes/100 WBC Auto (Unsp spec) 15.4 % Low 19-41 [facility] BUNon 11-06-2024 Urea nitrogen [Mass/Vol] 49 mg/dL High 4-19 [facility] Comment on above: Performed By: #### L 501.5600, L100.0100, L501.1000 #### [facility] [address] [place], [place], [id number] Urea nitrogen [Mass/Vol] 14 mg/dL Normal - [facility] Comment on above: Performed By: #### L 501.1000 #### [facility] [address] [facility] [place], [address] Basophil percentageOrdered B y: Ton Vasquez on 11-06-2024 Basophils/100 WBC (Bld) 0.8 % 0-1 [facility] CBC W/Diff, Automatedon Absolute Lymph 1.39 X10 3/uL Normal 0.83-4.51 [facility] Comment on above: Performed By: #### L 501.5600, L100.0100, L501.1000 #### [facility] [address] [place], [address] Absolute Neut 6.9 X10 3/uL Normal 2.0-7.7 [facility] Comment on above: Performed By: #### L 501.5600, L100.0100, L501.1000 #### [facility] [address] [place], [address] Basophils/100 WBC (Bld) 0.8 % Normal 0-1 [facility] Comment on above: Performed By: #### L 501.5600, L100.0100, L501.1000 #### [facility] [address] [place], [address] Eosinophils/100 WBC (Bld) 1.2 % Normal 0-5 [facility] Comment on above: Performed By: #### L 501.5600, L100.0100, L501.1000 #### [facility] [address] [place], [address] Erythrocyte distribution width (RBC) [Ratio] 16.4 % High 11.6-14.6 [facility] Comment on above: Performed By: #### L 501.5600, L100.0100, L501.1000 #### [facility] [address] [place], [address] Hematocrit (Bld) [Volume fraction] 36.0 % Low 40-54 [facility] Comment on above: Performed By: #### L 501.5600, L100.0100, L501.1000 #### [facility] [address] [place], [address] Hemoglobin (Bld) [Mass/Vol] 11.4 g/dL Low 13.0-16.5 [facility] Comment on above: Performed By: #### L 501.5600, L100.0100, L501.1000 #### [facility] [address] [place], [address] IG% 0.400 Normal 0.0-0.9 [facility] Comment on above: Result Comment: IG% - Immature Granulocytes (promyelocytes, myelocytes and metamyelocytes) > 1% indicates that a LEFT SHIFT is Present. Performed By: #### L 501.5600, L100.0100, L501.1000 #### [facility] [address] [place], [address] Lymphocytes/100 WBC (Bld) 15.4 % Low 19-41 [facility] Comment on above: Performed By: #### L 501.5600, L100.0100, L501.1000 #### [facility] [address] [place], [address] MCH (RBC) [Entitic mass] 29.5 pg Normal 27.0-32.0 [facility] Comment on above: Performed By: #### L 501.5600, L100.0100, L501.1000 #### [facility] [address] [place], [address] MCHC (RBC) [Mass/Vol] 31.7 g/dL Low 32-36 [facility] Comment on above: Performed By: #### L 501.5600, L100.0100, L501.1000 #### [facility] [address] [place], [address] MCV (RBC) [Entitic vol] 93.0 fL Normal 80-94 [facility] Comment on above: Performed By: #### L 501.5600, L100.0100, L501.1000 #### [facility] [address] [place], [address] Monocytes/100 WBC (Bld) 5.5 % Normal 0-10 [facility] Comment on above: Performed By: #### L 501.5600, L100.0100, L501.1000 #### [facility] [address] [place], [address] Neutrophils/100 WBC (Bld) 76.7 % High 47-70 [facility] Comment on above: Performed By: #### L 501.5600, L100.0100, L501.1000 #### [facility] [address] [place], [address] Nucleated RBC (Bld) [#/Vol] 0 10*3/uL Normal 0-5 [facility] Comment on above: Performed By: #### L 501.5600, L100.0100, L501.1000 #### [facility] [address] [place], [address] Platelet mean volume (Bld) [Entitic vol] 9.6 fL Normal 6.2-12.0 [facility] Comment on above: Performed By: #### L 501.5600, L100.0100, L501.1000 #### [facility] [address] [place], [address] Platelets (Bld) [#/Vol] 234 10*3/uL Normal 150-450 [facility] Comment on above: Performed By: #### L 501.5600, L100.0100, L501.1000 #### [facility] [address] [place], [address] RBC (Bld) [#/Vol] 3.87 10*6/uL Low 4.6-6.2 [facility] Comment on above: Performed By: #### L 501.5600, L100.0100, L501.1000 #### [facility] [address] [place], [address] RDW SD 54.6 fl High 35.1-43.9 [facility] Comment on above: Performed By: #### L 501.5600, L100.0100, L501.1000 #### [facility] [address] [place], [address] WBC (Bld) [#/Vol] 9.1 10*3/uL Normal 4.4-11.0 [facility] Comment on above: Performed By: #### L 501.5600, L100.0100, L501.1000 #### [facility] [address] [place], [address] Eosinophil percentageOrdered By: Ton Vasquez on 11-06-2024 Eosinophils/100 WBC (Bld) 1.2 % 0-5 [facility] Erythrocyte distribution wid th ratioOrdered By: Ton Vasquez on 11-06-2024 Erythrocyte distribution width (RBC) [Ratio] 16.4 % High 11.6-14.6 [facility] Erythrocyte distribution wid th standard deviationOrdered By: Ton Vasquez on 11-06-2024 Erythrocyte distribution width (RBC) [Ratio] 54.6 fl High 35.1-43.9 [facility] Hematocrit Auto (Bld) [Volum e fraction]Ordered By: Ton Vasquez on 11-06-2024 Hematocrit (Bld) [Volume fraction] 36.0 % Low 40-54 [facility] Hemoglobin measurementOrdere d By: Ton Vasquez on 11-06-2024 Hemoglobin (Bld) [Mass/Vol] 11.4 g/dL Low 13.0-16.5 [facility] Immature granulocytes/100 WB C Auto (Bld)Ordered By: Ton Vasquez on 11-06-2024 Immature granulocytes/100 WBC (Bld) 0.400 % 0.0-0.9 [facility] Comment on above: IG% - Immature Granu locytes (promyelocytes, myelocytes and metamyelocytes) > 1% indicates that a LEFT SHIFT is Present. MCV (mean corpuscular volume ) determinationOrdered By: Ton Vasquez on 11-06-2024 MCV (RBC) [Entitic vol] 93.0 fL 80-94 [facility] Mean corpuscular hemoglobin (MCH) determinationOrdered By: Ton Vasquez on 11-06-2024 MCH (RBC) [Entitic mass] 29.5 pg 27.0-32.0 [facility] Mean corpuscular hemoglobin concentration (MCHC) determinationOrdered By: Ton Vasquez on 11-06-2024 MCHC (RBC) [Mass/Vol] 31.7 g/dL Low 32-36 [facility] Mean platelet volume determi nationOrdered By: Ton Vasquez on 11-06-2024 Platelet mean volume (Bld) [Entitic vol] 9.6 fL 6.2-12.0 [facility] Monocyte percentageOrdered B y: Ton Vasquez on 11-06-2024 Monocytes/100 WBC (Bld) 5.5 % 0-10 [facility] Neutrophil percentageOrdered By: Ton Vasquez on 11-06-2024 Neutrophils/100 WBC (Bld) 76.7 % High 47-70 [facility] Nucleated red blood cell per centageOrdered By: Ton Vasquez on 11-06-2024 Nucleated RBC/100 WBC (Bld) [Ratio] 0 % 0-5 [facility] Platelet countOrdered By: Jules Vasquez on 11-06-2024 Platelets (Bld) [#/Vol] 234 10*3/uL 150-450 [facility] Potassiumon 11-06-2024 Potassium [Moles/Vol] 5.2 mmol/L High 3.3-5.1 [facility] Comment on above: Performed By: #### L 501.5600, L100.0100, L501.1000 #### [facility] [place], [address] Potassium measurement (mass/ volume)Ordered By: Ton Vasquez on 11-06-2024 Potassium (Unsp spec) [Mass/Vol] 5.2 mmol/L High 3.3-5.1 [facility] RBC Auto (Bld) [#/Vol]Ordere d By: Ton Vasquez on 11-06-2024 RBC (Bld) [#/Vol] 3.87 10*6/uL Low 4.6-6.2 [facility] Serum or plasma urea nitroge n measurement (mass/volume)Ordered By: Ton Vasquez on 11-06-2024 Urea nitrogen [Mass/Vol] 14 mg/dL 4-19 [facility] White blood cell (WBC) count Ordered By: Ton Vasquez on 11-06-2024 WBC (Bld) [#/Vol] 9.1 10*3/uL 4.4-11.0 [facility] Absolute lymphocyte countOrd ered By: Gila Bernal on 10-30-2024 Lymphocytes Auto (Unsp spec) [#/Vol] 1.24 10*3/uL 0.83-4.51 [facility] Absolute neutrophil countOrd ered By: Gila Bernal on 10-30-2024 Neutrophils (Bld) [#/Vol] 7.4 10*3/uL 2.0-7.7 [facility] Anion gap in Serum or Plasma Ordered By: Gila Bernal on 10-30-2024 Anion gap [Moles/Vol] 15 mmol/L 5-15 [facility] Automated lymphocyte count a s percentage of total leukocytesOrdered By: Gila Bernal on 10-30-2024 Lymphocytes/100 WBC Auto (Unsp spec) 13.0 % Low 19-41 [facility] BUN/creatinine ratioOrdered By: Gila Bernal on 10-30-2024 Urea nitrogen/Creatinine [Mass ratio] 6.1 mg/mg Low 10-20 [facility] Basophil percentageOrdered B y: Gila Bernal on 10-30-2024 Basophils/100 WBC (Bld) 0.6 % 0-1 [facility] Bilirubin, totalOrdered By: Gila Bernal on 10-30-2024 Bilirubin [Mass/Vol] 0.49 mg/dL 0.00-1.30 [facility] Carbon dioxide, total [Moles /volume] in Central venous bloodOrdered By: Gila Bernal on 10-30-2024 CO2 [Moles/Vol] 28.0 mmol/L 21.0-32.0 [facility] Chloride assayOrdered By: Rich Bernal on 10-30-2024 Chloride [Moles/Vol] 92 mmol/L Low 98-108 [facility] Eosinophil percentageOrdered By: Gila Bernal on 10-30-2024 Eosinophils/100 WBC (Bld) 1.3 % 0-5 [facility] Erythrocyte distribution wid th ratioOrdered By: Gila Bernal on 10-30-2024 Erythrocyte distribution width (RBC) [Ratio] 17.0 % High 11.6-14.6 [facility] Erythrocyte distribution wid th standard deviationOrdered By: Gila Bernal on 10-30-2024 Erythrocyte distribution width (RBC) [Ratio] 57.1 fl High 35.1-43.9 [facility] Glomerular filtration rate ( GFR) estimation/1.73 sq m using serum, plasma, or whole bOrdered By: Gila Bernal on 10-30-2024 GFR/1.73 sq M.predicted among non-blacks MDRD (S/P/Bld) [Vol rate/Area] 23 mL/min/{1.73_m2} Low >60 [facility] Comment on above: mL/min/1.73m2 CKD-EP I Creatinine Equation (2020) Hematocrit Auto (Bld) [Volum e fraction]Ordered By: Gila Bernal on 10-30-2024 Hematocrit (Bld) [Volume fraction] 37.6 % Low 40-54 [facility] Hemoglobin measurementOrdere d By: Gila Bernal on 10-30-2024 Hemoglobin (Bld) [Mass/Vol] 11.8 g/dL Low 13.0-16.5 [facility] Immature granulocytes/100 WB C Auto (Bld)Ordered By: Gila Bernal on 10-30-2024 Immature granulocytes/100 WBC (Bld) 0.400 % 0.0-0.9 [facility] Comment on above: IG% - Immature Granu locytes (promyelocytes, myelocytes and metamyelocytes) > 1% indicates that a LEFT SHIFT is Present. Laboratory - Chemistry and C hemistry - challengeOrdered By: Gila Bernal on 10-30-2024 AST [Catalytic activity/Vol] 15 U/L <38 [facility] MCV (mean corpuscular volume ) determinationOrdered By: Gila Bernal on 10-30-2024 MCV (RBC) [Entitic vol] 93.8 fL 80-94 [facility] Mean corpuscular hemoglobin (MCH) determinationOrdered By: Gila Bernal on 10-30-2024 MCH (RBC) [Entitic mass] 29.4 pg 27.0-32.0 [facility] Mean corpuscular hemoglobin concentration (MCHC) determinationOrdered By: Gila Bernal on 10-30-2024 MCHC (RBC) [Mass/Vol] 31.4 g/dL Low 32-36 [facility] Mean platelet volume determi nationOrdered By: Gila Bernal on 10-30-2024 Platelet mean volume (Bld) [Entitic vol] 9.1 fL 6.2-12.0 [facility] Monocyte percentageOrdered B y: Gila Bernal on 10-30-2024 Monocytes/100 WBC (Bld) 7.2 % 0-10 [facility] Neutrophil percentageOrdered By: Gila Bernal on 10-30-2024 Neutrophils/100 WBC (Bld) 77.5 % High 47-70 [facility] Nucleated red blood cell per centageOrdered By: Gila Bernal on 10-30-2024 Nucleated RBC/100 WBC (Bld) [Ratio] 0 % 0-5 [facility] Platelet countOrdered By: Rich Bernal on 10-30-2024 Platelets (Bld) [#/Vol] 177 10*3/uL 150-450 [facility] Potassium measurement (mass/ volume)Ordered By: Gila Bernal on 10-30-2024 Potassium (Unsp spec) [Mass/Vol] 4.5 mmol/L 3.3-5.1 [facility] RBC Auto (Bld) [#/Vol]Ordere d By: Gila Bernal on 10-30-2024 RBC (Bld) [#/Vol] 4.01 10*6/uL Low 4.6-6.2 [facility] Serum creatinine measurement (mass/volume)Ordered By: Gila Bernal on 10-30-2024 Creatinine [Mass/Vol] 3.22 mg/dL High 0.70-1.20 [facility] Serum globulin measurementOr dered By: Gila Bernal on 10-30-2024 Globulin (S) [Mass/Vol] 2.5 g/dL 2.2-4.2 [facility] Serum glucose measurement (m ass/volume)Ordered By: Gila Bernal on 10-30-2024 Glucose [Mass/Vol] 257 mg/dL High 70-99 [facility] Serum or plasma alanine martinez otransferase (ALT) measurementOrdered By: Gila Bernal on 10-30-2024 ALT [Catalytic activity/Vol] 9 U/L <47 [facility] Serum or plasma albumin zainab urement (mass/volume)Ordered By: Gila Bernal on 10-30-2024 Albumin [Mass/Vol] 4.6 g/dL 3.5-5.0 [facility] Serum or plasma albumin/glob ulin mass ratioOrdered By: Gila Bernal on 10-30-2024 Albumin/Globulin [Mass ratio] 1.8 {ratio} 0.9-2.4 [facility] Serum or plasma alkaline robert sphatase measurementOrdered By: Gila Bernal on 10-30-2024 ALP [Catalytic activity/Vol] 174 U/L High 40-129 [facility] Serum or plasma calcium zainab urement (mass/volume)Ordered By: Gila Bernal on 10-30-2024 Calcium [Mass/Vol] 9.3 mg/dL 7.6-11.0 [facility] Serum or plasma urea nitroge n measurement (mass/volume)Ordered By: Gila Bernal on 10-30-2024 Urea nitrogen [Mass/Vol] 20 mg/dL High 4-19 [facility] Sodium levelOrdered By: Mireille Bernal on 10-30-2024 Sodium [Moles/Vol] 135 mmol/L 133-145 [facility] Total proteinOrdered By: Chasity Bernal on 10-30-2024 Protein [Mass/Vol] 7.0 g/dL 5.9-8.4 [facility] White blood cell (WBC) count Ordered By: Gila Bernal on 10-30-2024 WBC (Bld) [#/Vol] 9.5 10*3/uL 4.4-11.0 [facility] .Auto Diffon 07-23-2024 Basophil, Absolute 0.0 10 3/mcL Normal 0.0-0.3 [facility] Comment on above: Performed By: #### G FR, ANEU, BMP, ADIFF, CBC #### [address] [address] Basophils/100 WBC (Bld) 0.1 % Normal 0.0-2.5 [facility] Comment on above: Performed By: #### G FR, ANEU, BMP, ADIFF, CBC #### [address] [address] Eosinophil, Absolute 0.0 10 3/mcL Normal 0.0-0.7 [facility] Comment on above: Performed By: #### G FR, ANEU, BMP, ADIFF, CBC #### [address] [address] Eosinophils/100 WBC (Bld) 0.0 % Normal 0.0-6.0 [facility] Comment on above: Performed By: #### G FR, ANEU, BMP, ADIFF, CBC #### [address] [address] Lymphocyte, Absolute 0.3 10 3/mcL Low 0.9-4.3 [facility] Comment on above: Performed By: #### G FR, ANEU, BMP, ADIFF, CBC #### [address] [address] Lymphocytes/100 WBC (Bld) 3.8 % Low 20.0-40.0 [facility] Comment on above: Performed By: #### G FR, ANEU, BMP, ADIFF, CBC #### [address] [address] Monocyte, Absolute 0.1 10 3/mcL Normal 0.1-1.4 [facility] MAIN Comment on above: Performed By: #### G FR, ANEU, BMP, ADIFF, CBC #### [address] [address] Monocytes/100 WBC (Bld) 0.8 % Low 2.0-13.0 [facility] MAIN Comment on above: Performed By: #### G FR, ANEU, BMP, ADIFF, CBC #### [address] [address] Neutrophils/100 WBC (Bld) 95.3 % High 50.0-75.0 [facility] MAIN Comment on above: Performed By: #### G FR, ANEU, BMP, ADIFF, CBC #### [address] [address] .GFRon 07-23-2024 GFR Non- 15 ml/min/1.73sqm [facility] MAIN Comment on above: Result Comment: GFR Population mean for , Non- Americans Ages 20-29 = 116 mL/min/1.73 sq.m. Ages 30-39 = 107 mL/min/1.73 sq.m. Ages 40-49 = 99 mL/min/1.73 sq.m. Ages 50-59 = 93 mL/min/1.73 sq.m. Ages 60-69 = 85 mL/min/1.73 sq.m. Ages 70+ = 75 mL/min/1.73 sq.m. Chronic Kidney Disease: Less than 60 mL/min/1.73 square meters End Stage Renal Disease: Less than 15 mL/min/1.73 square meters Performed By: #### G FR, ANEU, BMP, ADIFF, CBC #### [address] [address] GFR 18 ml/min/1.73sqm [facility] MAIN Comment on above: Result Comment: GFR Population mean for , Non- Americans Ages 20-29 = 116 mL/min/1.73 sq.m. Ages 30-39 = 107 mL/min/1.73 sq.m. Ages 40-49 = 99 mL/min/1.73 sq.m. Ages 50-59 = 93 mL/min/1.73 sq.m. Ages 60-69 = 85 mL/min/1.73 sq.m. Ages 70+ = 75 mL/min/1.73 sq.m. Chronic Kidney Disease: Less than 60 mL/min/1.73 square meters End Stage Renal Disease: Less than 15 mL/min/1.73 square meters Performed By: #### G FR, ANEU, BMP, ADIFF, CBC #### [address] [address] .NEUABSon 07-23-2024 Neutrophil, Absolute 8.5 10 3/mcL High 2.3-8.1 [facility] MAIN Comment on above: Performed By: #### G FR, ANEU, BMP, ADIFF, CBC #### [address] [address] [facility] BUN/Creatinine Ratio 10.0 ratio Normal 10.0-22.0 [facility] MAIN Comment on above: Performed By: #### G FR, ANEU, BMP, ADIFF, CBC #### [place] [address] Calcium [Mass/Vol] 9.3 mg/dL Normal 8.7-10.4 [facility] MAIN Comment on above: Performed By: #### G FR, ANEU, BMP, ADIFF, CBC #### [place] [address] Chloride [Moles/Vol] 98 mmol/L Normal 98-110 [facility] MAIN Comment on above: Performed By: #### G FR, ANEU, BMP, ADIFF, CBC #### [place] [address] CO2 [Moles/Vol] 28 mmol/L Normal 22-32 [facility] MAIN Comment on above: Performed By: #### G FR, ANEU, BMP, ADIFF, CBC #### [place] [id number] Creatinine [Mass/Vol] 4.28 mg/dL High 0.60-1.40 [facility] MAIN Comment on above: Result Comment: Test ing performed on Socialinus analyzer using enzymatic creatinine methodology. Performed By: #### G FR, ANEU, BMP, ADIFF, CBC #### [address] [address] Electrolyte Balance 13.0 mEq/L Normal 4.0-15.0 [facility] MAIN Comment on above: Performed By: #### G FR, ANEU, BMP, ADIFF, CBC #### [place] [address] Glucose [Mass/Vol] 161 mg/dL High 70-110 [facility] MAIN Comment on above: Performed By: #### G FR, ANEU, BMP, ADIFF, CBC #### [place] [address] Potassium [Moles/Vol] 4.5 mmol/L Normal 3.5-5.0 [facility] MAIN Comment on above: Performed By: #### G FR, ANEU, BMP, ADIFF, CBC #### [place] [address] Sodium [Moles/Vol] 139 mmol/L Normal 136-145 [facility] MAIN Comment on above: Performed By: #### G FR, ANEU, BMP, ADIFF, CBC #### [place] [address] Urea nitrogen [Mass/Vol] 43.0 mg/dL High 8.0-22.0 [facility] MAIN Comment on above: Performed By: #### G FR, ANEU, BMP, ADIFF, CBC #### [address] 07-[address]-2024 Erythrocyte distribution width (RBC) [Ratio] 18.0 % High 11.5-15.5 [facility] MAIN Comment on above: Performed By: #### G FR, ANEU, BMP, ADIFF, CBC #### [place] [address] Hematocrit (Bld) [Volume fraction] 33.7 % Low 40.0-52.0 [facility] MAIN Comment on above: Performed By: #### G FR, ANEU, BMP, ADIFF, CBC #### [place] [address] Hgb 11.1 G/dL Low 13.0-17.5 [facility] MAIN Comment on above: Performed By: #### G FR, ANEU, BMP, ADIFF, CBC #### [address] [address] MCH (RBC) [Entitic mass] 29.9 pg Normal 27.0-33.0 [facility] MAIN Comment on above: Performed By: #### G FR, ANEU, BMP, ADIFF, CBC #### [place] [address] MCHC 32.9 G/dL Normal 32.0-36.0 [facility] MAIN Comment on above: Performed By: #### G FR, ANEU, BMP, ADIFF, CBC #### [place] [address] MCV (RBC) [Entitic vol] 90.8 fL Normal 81.0-100.0 [facility] MAIN Comment on above: Performed By: #### G FR, ANEU, BMP, ADIFF, CBC #### [place] [address] Platelet 198 10 3/mcL Normal 150-450 [facility] MAIN Comment on above: Performed By: #### G FR, ANEU, BMP, ADIFF, CBC #### [place] [address] Platelet mean volume (Bld) [Entitic vol] 6.4 fL Normal 6.4-10.5 [facility] MAIN Comment on above: Performed By: #### G FR, ANEU, BMP, ADIFF, CBC #### [place] [address] RBC 3.71 10 6/mcL Low 4.50-6.00 [facility] MAIN Comment on above: Performed By: #### G FR, ANEU, BMP, ADIFF, CBC #### [place] [address] WBC 8.9 10 3/mcL Normal 4.5-10.8 [facility] MAIN Comment on above: Performed By: #### G FR, ANEU, BMP, ADIFF, CBC #### [place] [address] LABORATORYOrdered By: Charissa Rollins on 07-23-2024 Glucose [Mass/Vol] 174 mg/dL High 70 - 110 mg/dL [facility] LABORATORYOrdered By: Roberto Ott on 07-23-2024 Glucose [Mass/Vol] 143 mg/dL High 70 - 110 mg/dL [facility] LABORATORYOrdered By: Gisselle Zhao on 07-23-2024 Glucose [Mass/Vol] 218 mg/dL High 70 - 110 mg/dL [facility] LABORATORYOrdered By: Maribell Mckeon on 07-23-2024 Blood Glucose Testing Reason Routine (07/23/24 8:14 AM) [facility] LABORATORYOrdered By: SYSTEM SYSTEM on 07-23-2024 Basophils (Bld) [#/Vol] 0.0 103/mcL Normal 0.0 - 0.3 10^3/mcL AH Workflow SS Basophils/100 WBC (Bld) 0.1 % Normal 0.0 - 2.5 % AH Workflow SS Calcium [Mass/Vol] 9.3 mg/dL Normal 8.7 - 10. 4 mg/dL AH ADM SS Chloride [Moles/Vol] 98 mmol/L Normal 98 - 11 0 mEq/L AH ADM SS CO2 [Moles/Vol] 28 mmol/L Normal 22 - 32 mEq/L AH ADM SS Creatinine [Mass/Vol] 4.28 mg/dL High 0.60 - 1.40 mg/dL AH ADM SS Comment on above: Interpretive Data: T esting performed on Socialinus analyzer using enzymatic creatinine methodology. Electrolyte Balance 13.0 mEq/L Normal 4.0 - 15 .0 mEq/L AH ADM SS Eosinophils (Bld) [#/Vol] 0.0 103/mcL Normal 0.0 - 0.7 10^3/mcL AH Workflow SS Eosinophils/100 WBC (Bld) 0.0 % Normal 0.0 - 6.0 % AH Workflow SS Erythrocyte distribution width (RBC) [Ratio] 18.0 % High 11.5 - 15.5 % AH Workflow SS GFR/1.73 sq M.predicted among blacks MDRD (S/P/Bld) [Vol rate/Area] 18 ml/min/1.73sqm Invalid Interpretation Code D1G Chemistry S Comment on above: Interpretive Data: GFR Population mean for , Non- Americans Ages 20-29 = 116 mL/min/1.73 sq.m. Ages 30-39 = 107 mL/min/1.73 sq.m. Ages 40-49 = 99 mL/min/1.73 sq.m. Ages 50-59 = 93 mL/min/1.73 sq.m. Ages 60-69 = 85 mL/min/1.73 sq.m. Ages 70+ = 75 mL/min/1.73 sq.m. Chronic Kidney Disease: Less than 60 mL/min/1.73 square meters End Stage Renal Disease: Less than 15 mL/min/1.73 square meters GFR/1.73 sq M.predicted among non-blacks MDRD (S/P/Bld) [Vol rate/Area] 15 ml/min/1.73sqm Invalid Interpretation Code D1G Chemistry S Comment on above: Interpretive Data: GFR Population mean for , Non- Americans Ages 20-29 = 116 mL/min/1.73 sq.m. Ages 30-39 = 107 mL/min/1.73 sq.m. Ages 40-49 = 99 mL/min/1.73 sq.m. Ages 50-59 = 93 mL/min/1.73 sq.m. Ages 60-69 = 85 mL/min/1.73 sq.m. Ages 70+ = 75 mL/min/1.73 sq.m. Chronic Kidney Disease: Less than 60 mL/min/1.73 square meters End Stage Renal Disease: Less than 15 mL/min/1.73 square meters Glucose [Mass/Vol] 161 mg/dL High 70 - 110 mg/dL ADM SS Hematocrit (Bld) [Volume fraction] 33.7 % Low 40.0 - 52.0 % AH Workflow SS Hemoglobin (Bld) [Mass/Vol] 11.1 G/dL Low 13.0 - 17.5 G/dL AH Workflow SS Lymphocytes (Bld) [#/Vol] 0.3 103/mcL Low 0.9 - 4.3 10^3/mcL AH Workflow SS Lymphocytes/100 WBC (Bld) 3.8 % Low 20.0 - 40.0 % Workflow SS MCH (RBC) [Entitic mass] 29.9 pg Normal 27.0 - 33.0 pg AH Workflow SS MCHC 32.9 G/dL Normal 32.0 - 36.0 G/dL AH Workflow SS MCV (RBC) [Entitic vol] 90.8 fL Normal 81.0 - 100.0 fL AH Workflow SS Monocytes (Bld) [#/Vol] 0.1 103/mcL Normal 0.1 - 1.4 10^3/mcL AH Workflow SS Monocytes/100 WBC (Bld) 0.8 % Low 2.0 - 13.0 % AH Workflow SS Neutrophils (Bld) [#/Vol] 8.5 103/mcL High 2.3 - 8.1 10^3/mcL AH Workflow SS Neutrophils/100 WBC (Bld) 95.3 % High 50.0 - 75.0 % AH Workflow SS Platelet mean volume (Bld) [Entitic vol] 6.4 fL Normal 6.4 - 10.5 fL AH Workflow SS Platelets (Bld) [#/Vol] 198 103/mcL Normal 150 - 450 10^3/mcL AH Workflow SS Potassium [Moles/Vol] 4.5 mmol/L Normal 3.5 - 5.0 mEq/L AH ADM SS RBC (Bld) [#/Vol] 3.71 106/mcL Low 4.50 - 6.0 0 10^6/mcL AH Workflow SS Sodium [Moles/Vol] 139 mmol/L Normal 136 - 145 mEq/L AH ADM SS Urea nitrogen [Mass/Vol] 43.0 mg/dL High 8.0 - 22.0 mg/dL AH ADM SS Urea nitrogen/Creatinine [Mass ratio] 10.0 ratio Normal 10.0 - 22.0 ratio AH ADM SS WBC (Bld) [#/Vol] 8.9 103/mcL Normal 4.5 - 10.8 10^3/mcL Workflow SS .Auto Diffon 07-22-2024 Basophil, Absolute 0.0 10 3/mcL Normal 0.0-0.3 [facility] MAIN Comment on above: Performed By: #### C BC, CMP, GFR, ADIFF, ANEU, TROPHS, MG #### [facility] [address] [place] [address] Basophils/100 WBC (Bld) 0.3 % Normal 0.0-2.5 [facility] MAIN Comment on above: Performed By: #### C BC, CMP, GFR, ADIFF, ANEU, TROPHS, MG #### [address] [address] Eosinophil, Absolute 0.1 10 3/mcL Normal 0.0-0.7 [facility] MAIN Comment on above: Performed By: #### C BC, CMP, GFR, ADIFF, ANEU, TROPHS, MG #### [address] [address] Eosinophils/100 WBC (Bld) 0.5 % Normal 0.0-6.0 [facility] MAIN Comment on above: Performed By: #### C BC, CMP, GFR, ADIFF, ANEU, TROPHS, MG #### [address] [address] Lymphocyte, Absolute 0.2 10 3/mcL Low 0.9-4.3 [facility] MAIN Comment on above: Performed By: #### C BC, CMP, GFR, ADIFF, ANEU, TROPHS, MG #### [address] [address] Lymphocytes/100 WBC (Bld) 1.6 % Low 20.0-40.0 [facility] MAIN Comment on above: Performed By: #### C BC, CMP, GFR, ADIFF, ANEU, TROPHS, MG #### [address] [address] Monocyte, Absolute 0.1 10 3/mcL Normal 0.1-1.4 [facility] MAIN Comment on above: Performed By: #### C BC, CMP, GFR, ADIFF, ANEU, TROPHS, MG #### [address] [address] Monocytes/100 WBC (Bld) 0.9 % Low 2.0-13.0 [facility] MAIN Comment on above: Performed By: #### C BC, CMP, GFR, ADIFF, ANEU, TROPHS, MG #### [address] [address] Neutrophils/100 WBC (Bld) 96.7 % High 50.0-75.0 [facility] MAIN Comment on above: Performed By: #### C BC, CMP, GFR, ADIFF, ANEU, TROPHS, MG #### [facility] [address] [place] [address] Basophil, Absolute 0.0 10 3/mcL Normal 0.0-0.2 [facility] Comment on above: Performed By: #### G FR, MDW, CBC, ADIFF, ANEU, BMP, TROPHS #### [address] [address] Basophils/100 WBC (Bld) 0.1 % Normal 0.0-2.5 [facility] Comment on above: Performed By: #### G FR, MDW, CBC, ADIFF, ANEU, BMP, TROPHS #### [address] [address] Eosinophil, Absolute 0.2 10 3/mcL Normal 0.0-0.7 [facility] Comment on above: Performed By: #### G , W, CBC, ADIFF, ANEU, BMP, TROPHS #### [address] [address] Eosinophils/100 WBC (Bld) 2.4 % Normal 0.0-7.0 [facility] Comment on above: Performed By: #### G , W, CBC, ADIFF, ANEU, BMP, TROPHS #### [address] [address] Lymphocyte, Absolute 0.9 10 3/mcL Normal 0.9-4.3 [facility] Comment on above: Performed By: #### G FR, W, CBC, ADIFF, ANEU, BMP, TROPHS #### [address] [address] Lymphocytes/100 WBC (Bld) 8.1 % Low 20.0-40.0 [facility] Comment on above: Performed By: #### G , MDW, CBC, ADIFF, ANEU, BMP, TROPHS #### [address] [address] Monocyte, Absolute 0.6 10 3/mcL Normal 0.1-1.4 [facility] Comment on above: Performed By: #### G , IRMA, CBC, ADIFF, ANEU, BMP, TROPHS #### [address] [address] Monocytes/100 WBC (Bld) 5.9 % Normal 2.0-13.0 [facility] Comment on above: Performed By: #### G , IRMA, CBC, ADIFF, ANEU, BMP, TROPHS #### [address] [address] Neutrophils/100 WBC (Bld) 83.2 % High 50.0-75.0 [facility] Comment on above: Performed By: #### G , IRMA, CBC, ADIFF, ANEU, BMP, TROPHS #### [address] [address] .GFRon 07-22-2024 GFR 23 ml/min/1.73sqm [facility] MAIN Comment on above: Result Comment: GFR Population mean for , Non- Americans Ages 20-29 = 116 mL/min/1.73 sq.m. Ages 30-39 = 107 mL/min/1.73 sq.m. Ages 40-49 = 99 mL/min/1.73 sq.m. Ages 50-59 = 93 mL/min/1.73 sq.m. Ages 60-69 = 85 mL/min/1.73 sq.m. Ages 70+ = 75 mL/min/1.73 sq.m. Chronic Kidney Disease: Less than 60 mL/min/1.73 square meters End Stage Renal Disease: Less than 15 mL/min/1.73 square meters Performed By: #### G FR, BMP #### [facility] [address] [place] [address] GFR Non- 19 ml/min/1.73sqm [facility] MAIN Comment on above: Result Comment: GFR Population mean for , Non- Americans Ages 20-29 = 116 mL/min/1.73 sq.m. Ages 30-39 = 107 mL/min/1.73 sq.m. Ages 40-49 = 99 mL/min/1.73 sq.m. Ages 50-59 = 93 mL/min/1.73 sq.m. Ages 60-69 = 85 mL/min/1.73 sq.m. Ages 70+ = 75 mL/min/1.73 sq.m. Chronic Kidney Disease: Less than 60 mL/min/1.73 square meters End Stage Renal Disease: Less than 15 mL/min/1.73 square meters Performed By: #### G FR, BMP #### [address] [address] GFR Non- 8 ml/min/1.73sqm [facility] MAIN Comment on above: Result Comment: GFR Population mean for , Non- Americans Ages 20-29 = 116 mL/min/1.73 sq.m. Ages 30-39 = 107 mL/min/1.73 sq.m. Ages 40-49 = 99 mL/min/1.73 sq.m. Ages 50-59 = 93 mL/min/1.73 sq.m. Ages 60-69 = 85 mL/min/1.73 sq.m. Ages 70+ = 75 mL/min/1.73 sq.m. Chronic Kidney Disease: Less than 60 mL/min/1.73 square meters End Stage Renal Disease: Less than 15 mL/min/1.73 square meters Performed By: #### G FR, ANEU, BMP, ELISABETH, CBC #### [address] [address] GFR 10 ml/min/1.73sqm [facility] MAIN Comment on above: Result Comment: GFR Population mean for , Non- Americans Ages 20-29 = 116 mL/min/1.73 sq.m. Ages 30-39 = 107 mL/min/1.73 sq.m. Ages 40-49 = 99 mL/min/1.73 sq.m. Ages 50-59 = 93 mL/min/1.73 sq.m. Ages 60-69 = 85 mL/min/1.73 sq.m. Ages 70+ = 75 mL/min/1.73 sq.m. Chronic Kidney Disease: Less than 60 mL/min/1.73 square meters End Stage Renal Disease: Less than 15 mL/min/1.73 square meters Performed By: #### G , ANEU, BMP, ADIFF, CBC #### [address] [address] GFR Non- 8 ml/min/1.73sqm [facility] Comment on above: Result Comment: GFR Population mean for , Non- Americans Ages 20-29 = 116 mL/min/1.73 sq.m. Ages 30-39 = 107 mL/min/1.73 sq.m. Ages 40-49 = 99 mL/min/1.73 sq.m. Ages 50-59 = 93 mL/min/1.73 sq.m. Ages 60-69 = 85 mL/min/1.73 sq.m. Ages 70+ = 75 mL/min/1.73 sq.m. Chronic Kidney Disease: Less than 60 mL/min/1.73 square meters End Stage Renal Disease: Less than 15 mL/min/1.73 square meters Performed By: #### G IRMA QUINTANA, CBC, ADIFF, ANEU, BMP, TROPHS #### [address] [address] GFR 9 ml/min/1.73sqm [facility] Comment on above: Result Comment: GFR Population mean for , Non- Americans Ages 20-29 = 116 mL/min/1.73 sq.m. Ages 30-39 = 107 mL/min/1.73 sq.m. Ages 40-49 = 99 mL/min/1.73 sq.m. Ages 50-59 = 93 mL/min/1.73 sq.m. Ages 60-69 = 85 mL/min/1.73 sq.m. Ages 70+ = 75 mL/min/1.73 sq.m. Chronic Kidney Disease: Less than 60 mL/min/1.73 square meters End Stage Renal Disease: Less than 15 mL/min/1.73 square meters Performed By: #### G IRMA QUINTANA, CBC, ADIFF, ANEU, BMP, TROPHS #### [place] [address] [place], [place] [address] .Iqra 07-22-2024 Monocyte Distribution Width Not tested Normal 0.00-20.00 [facility] Comment on above: Result Comment: IRMA testing unable to be performed on [id number] instrumentation. Performed By: #### Silvina QUINTANA, IRMA, CBC, ADIFF, ANEU, BMP, TROPHS #### [address] [address] .NEUABSon 07-22-2024 Neutrophil, Absolute 12.0 10 3/mcL High 2.3-8.1 [facility] MAIN Comment on above: Performed By: #### G , ANEU, BMP, ADIFF, CBC #### [address] [address] Neutrophil, Absolute 9.6 10 3/mcL High 2.3-8.1 [facility] Comment on above: Performed By: #### Silvina QUINTANA, IRMA, CBC, ADIFF, ANEU, BMP, TROPHS #### [address] [address] BMPon 07-22-2024 BUN/Creatinine Ratio 9.4 ratio Low 10.0-22.0 [facility] MAIN Comment on above: Performed By: #### Silvina QUINTANA, BMP #### [address] [address] Calcium [Mass/Vol] 10.0 mg/dL Normal 8.7-10.4 [facility] MAIN Comment on above: Performed By: #### Silvina FR, BMP #### [address] [address] Chloride [Moles/Vol] 96 mmol/L Low 98-110 [facility] MAIN Comment on above: Performed By: #### G FR, BMP #### [address] [address] CO2 [Moles/Vol] 28 mmol/L Normal 22-32 [facility] MAIN Comment on above: Performed By: #### G FR, BMP #### [address] [address] Creatinine [Mass/Vol] 3.51 mg/dL High 0.60-1.40 [facility] MAIN Comment on above: Result Comment: Test ing performed on Socialinus analyzer using enzymatic creatinine methodology. Performed By: #### Silvina QUINTANA, BMP #### [address] [address] Electrolyte Balance 13.0 mEq/L Normal 4.0-15.0 [facility] MAIN Comment on above: Performed By: #### Silvina QUINTANA, BMP #### [address] [address] Glucose [Mass/Vol] 167 mg/dL High 70-110 [facility] MAIN Comment on above: Performed By: #### Silvina QUINTANA, BMP #### [address] [address] Potassium [Moles/Vol] 4.7 mmol/L Normal 3.5-5.0 [facility] MAIN Comment on above: Performed By: #### Silvina QUINTANA, BMP #### [address] [address] Sodium [Moles/Vol] 137 mmol/L Normal 136-145 [facility] MAIN Comment on above: Performed By: #### Silvina QUINTANA BMP #### [address] [address] Urea nitrogen [Mass/Vol] 33.0 mg/dL High 8.0-22.0 [facility] MAIN Comment on above: Performed By: #### Silvina QUINTANA BMP #### [address] [address] BUN/Creatinine Ratio 12 ratio Normal 7-27 [facility] Comment on above: Performed By: #### IRMA DIAZ, CBC, ADIFF, ANEU, BMP, TROPHS #### [address] [address] Calcium [Mass/Vol] 9.0 mg/dL Normal 8.4-10.2 [facility] Comment on above: Performed By: #### IRMA DIAZ, CBC, ADIFF, ANEU, BMP, TROPHS #### [address] [address] Chloride [Moles/Vol] 94 mmol/L Low 98-107 [facility] Comment on above: Performed By: #### IRMA DIAZ, CBC, ADIFF, ANEU, BMP, TROPHS #### [address] [address] CO2 [Moles/Vol] 27 mmol/L Normal 22-29 [facility] Comment on above: Performed By: #### G IRMA QUINTANA, CBC, ADIFF, ANEU, BMP, TROPHS #### [address] [address] Creatinine [Mass/Vol] 7.55 mg/dL High 0.70-1.30 [facility] Comment on above: Result Comment: Test ing performed on Siemens Dimension EXL analyzer using a modified kinetic Janell technique. Performed By: #### G IRMA QUINTANA, CBC, ADIFF, ANEU, BMP, TROPHS #### [address] [address] Electrolyte Balance 11.0 mEq/L Normal 4.0-15.0 [facility] Comment on above: Performed By: #### IRMA DIAZ, CBC, ADIFF, ANEU, BMP, TROPHS #### [address] [address] Glucose [Mass/Vol] 117 mg/dL High 70-105 [facility] Comment on above: Performed By: #### IRMA DIAZ, CBC, ADIFF, ANEU, BMP, TROPHS #### [address] [address] Potassium [Moles/Vol] 7.2 mmol/L Critically abnormal 3.5-5.1 [facility] Comment on above: Performed By: #### IRMA DIAZ, CBC, ADIFF, ANEU, BMP, TROPHS #### [address] [address] Sodium [Moles/Vol] 132 mmol/L Low 136-145 [facility] Comment on above: Performed By: #### IRMA DIAZ, CBC, ADIFF, ANEU, BMP, TROPHS #### [address] [address] Urea nitrogen [Mass/Vol] 88 mg/dL High 7-18 [facility] Comment on above: Performed By: #### G , IRMA, CBC, ADIFF, ANEU, BMP, TROPHS #### [facility] [address] [place], [place] [address] CBCon 07-22-2024 Erythrocyte distribution width (RBC) [Ratio] 19.3 % High 11.5-15.5 [facility] MAIN Comment on above: Performed By: #### C BC, CMP, GFR, ADIFF, ANEU, TROPHS, MG #### [place] [address] Hematocrit (Bld) [Volume fraction] 33.6 % Low 40.0-52.0 [facility] MAIN Comment on above: Performed By: #### C BC, CMP, GFR, ADIFF, ANEU, TROPHS, MG #### [place] [address] Hgb 11.2 G/dL Low 13.0-17.5 [facility] MAIN Comment on above: Performed By: #### C BC, CMP, GFR, ADIFF, ANEU, TROPHS, MG #### [address] [address] MCH (RBC) [Entitic mass] 30.6 pg Normal 27.0-33.0 [facility] MA[facility] Comment on above: Performed By: #### C BC, CMP, GFR, ADIFF, ANEU, TROPHS, MG #### [place] [id number] MCHC 33.2 G/dL Normal 32.0-36.0 [facility] MA[facility] Comment on above: Performed By: #### C BC, CMP, GFR, ADIFF, ANEU, TROPHS, MG #### [place] [address] MCV (RBC) [Entitic vol] 92.2 fL Normal 81.0-100.0 [facility] Comment on above: Performed By: #### C BC, CMP, GFR, ADIFF, ANEU, TROPHS, MG #### [place] [id number] Platelet 232 10 3/mcL Normal 150-450 [facility] MA[facility] Comment on above: Performed By: #### C BC, CMP, GFR, ADIFF, ANEU, TROPHS, MG #### [address] [address] Platelet mean volume (Bld) [Entitic vol] 6.6 fL Normal 6.4-10.5 [facility] Comment on above: Performed By: #### C BC, CMP, GFR, ADIFF, ANEU, TROPHS, MG #### [place] [address] RBC 3.65 10 6/mcL Low 4.50-6.00 [facility] Comment on above: Performed By: #### C BC, CMP, GFR, ADIFF, ANEU, TROPHS, MG #### [place] [address] WBC 12.4 10 3/mcL High 4.5-10.8 [facility] Comment on above: Performed By: #### C BC, CMP, GFR, ADIFF, ANEU, TROPHS, MG #### [place] [address] Erythrocyte distribution width (RBC) [Ratio] 16.5 % High 11.5-15.5 [facility] Comment on above: Performed By: #### G IRMA QUINTA[place], CBC, ADIFF, ANEU, BMP, TROPHS #### [address] [address] Hematocrit (Bld) [Volume fraction] 31.1 % Low 40.0-52.0 [facility] Comment on above: Performed By: #### G IRMA [place], CBC, ADIFF, ANEU, BMP, TROPHS #### [address] [address] Hgb 10.4 G/dL Low 13.0-17.5 [facility] Comment on above: Performed By: #### G IRMA [place], CBC, ADIFF, ANEU, BMP, TROPHS #### [address] [address] MCH (RBC) [Entitic mass] 30.3 pg Normal 27.0-33.0 [facility] Comment on above: Performed By: #### G IRMA [place], CBC, ADIFF, ANEU, BMP, TROPHS #### [address] [address] MCHC 33.6 G/dL Normal 32.0-36.0 [facility] Comment on above: Performed By: #### IRMA DIAZ, CBC, ADIFF, ANEU, BMP, TROPHS #### [address] [address] MCV (RBC) [Entitic vol] 90.1 fL Normal 81.0-100.0 [facility] Comment on above: Performed By: #### IRMA DIAZ, CBC, ADIFF, ANEU, BMP, TROPHS #### [address] [address] Platelet 223 10 3/mcL Normal 150-450 [facility] Comment on above: Performed By: #### IRMA DIAZ, CBC, ADIFF, ANEU, BMP, TROPHS #### [address] [address] Platelet mean volume (Bld) [Entitic vol] 6.6 fL Normal 6.4-10.5 [facility] Comment on above: Performed By: #### IRMA DIAZ, CBC, ADIFF, ANEU, BMP, TROPHS #### [address] [address] RBC 3.45 10 6/mcL Low 4.50-6.00 [facility] Comment on above: Performed By: #### IRMA DIAZ, CBC, ADIFF, ANEU, BMP, TROPHS #### [address] [address] WBC 11.6 10 3/mcL High 4.5-10.8 [facility] [facility] Comment on above: Performed By: #### IRMA DIAZ, CBC, ADIFF, ANEU, BMP, TROPHS #### [address] [address] CMPon 07-22-2024 Albumin Level 3.7 G/dL Normal 3.2-4.8 [facility] Comment on above: Performed By: #### G FR, ANEU, BMP, ADIFF, CBC #### [place] [address] Albumin/Globulin [Mass ratio] 1.0 {ratio} Normal 0.9-1.6 [facility] Comment on above: Performed By: #### G FR, ANEU, BMP, ADIFF, CBC #### [place] [address] ALP [Catalytic activity/Vol] 192 U/L High 38-126 [facility] Comment on above: Performed By: #### G FR, ANEU, BMP, ADIFF, CBC #### [place] [address] ALT [Catalytic activity/Vol] 12 U/L Normal 12-55 [facility] Comment on above: Performed By: #### G FR, ANEU, BMP, ADIFF, CBC #### [place] [address] AST [Catalytic activity/Vol] 11 U/L Normal 8-34 [facility] Comment on above: Performed By: #### G FR, ANEU, BMP, ADIFF, CBC #### [place] [address] Bili Total 0.30 mg/dL Normal 0.20-1.20 [facility] Comment on above: Result Comment: Use of this assay is not recommended for patients undergoing treatment with eltrombopag due to the potential for falsely elevated results. Performed By: #### G FR, ANEU, BMP, ADIFF, CBC #### [place] [address] BUN/Creatinine Ratio 11.9 ratio Normal 10.0-22.0 [facility] Comment on above: Performed By: #### G FR, ANEU, BMP, ADIFF, CBC #### [place] [address] Calcium [Mass/Vol] 9.7 mg/dL Normal 8.7-10.4 [facility] Comment on above: Performed By: #### G FR, ANEU, BMP, ADIFF, CBC #### [address] [address] Chloride [Moles/Vol] 92 mmol/L Low 98-110 [facility] Comment on above: Performed By: #### G FR, ANEU, BMP, ADIFF, CBC #### [address] [address] CO2 [Moles/Vol] 25 mmol/L Normal 22-32 [facility] Comment on above: Performed By: #### G FR, ANEU, BMP, ADIFF, CBC #### [address] [address] Creatinine [Mass/Vol] 7.17 mg/dL High 0.60-1.40 [facility] Comment on above: Result Comment: Test ing performed on Socialinus analyzer using enzymatic creatinine methodology. Performed By: #### G FR, ANEU, BMP, ADIFF, CBC #### [address] [address] Electrolyte Balance 16.0 mEq/L High 4.0-15.0 [facility] Comment on above: Performed By: #### G FR, ANEU, BMP, ADIFF, CBC #### [address] [address] Globulin 3.7 G/dL Normal 1.5-3.8 [facility] Comment on above: Performed By: #### G FR, ANEU, BMP, ADIFF, CBC #### [address] [address] Glucose [Mass/Vol] 164 mg/dL High 70-110 [facility] Comment on above: Performed By: #### G FR, ANEU, BMP, ADIFF, CBC #### [address] [address] Potassium [Moles/Vol] 7.1 mmol/L Critically abnormal 3.5-5.0 [facility] Comment on above: Performed By: #### G FR, ANEU, BMP, ADIFF, CBC #### [address] [address] Sodium [Moles/Vol] 133 mmol/L Low 136-145 [facility] Comment on above: Performed By: #### G FR, ANEU, BMP, ADIFF, CBC #### [place] [id number] [place] [address] Total Protein 7.4 G/dL Normal 5.7-8.2 [facility] Comment on above: Performed By: #### G FR, ANEU, BMP, ADIFF, CBC #### [address] [address] Urea nitrogen [Mass/Vol] 85.0 mg/dL High 8.0-22.0 [facility] Comment on above: Performed By: #### G FR, ANEU, BMP, ADIFF, CBC #### [address] [address] CVFLURVon 07-22-2024 FLU A PCR Negative Normal Negative [facility] Comment on above: Performed By: #### C VFLURV #### [place] [address] FLU B PCR Negative Normal Negative [facility] Comment on above: Performed By: #### C VFLURV #### [place] [address] RSV PCR Negative Normal Negative [facility] Comment on above: Performed By: #### C VFLURV #### [place] [address] SARS-CoV-2 (COVID-19) RNA GLENN+probe Ql (Unsp spec) Negative Normal Negative [facility] Comment on above: Result Comment: Resu lts from the Xpert Xpress CoV-2/Flu/RSV plus test should be correlated with the clinical history, epidemiological data, and other data available to the clinical evaluating the patient. Performance of the Xpert Xpress CoV-2/Flu/RSV plus test has only been established in nasopharyngeal swab specimen. Erroneous test results might occur from improper specimen collection, failure to follow the recommended sample collection, handling and storage procedures, technical error, or sample mix-up. False negative results may occur if a virus is present at a level below the analytical limit of detection. Viral nucleic acid may persist in vivo, independent of virus viability. Detection of analyte target(s) does not imply that the corresponding virus(es) are infectious or are the causative agents for clinical symptoms. Recent patient exposure to FluMist or other live attenuated influenza vaccines may cause inaccurate positive results. Performed By: #### C [facility] #### Eduardo [address] [address] HEPACon 07-22-2024 Hep A IgM Ab Non-Reactive Normal Non-Reactive [facility] Comment on above: Performed By: #### H EPAC #### [place] [address] Hep A IgM Ab Int [facility] Comment on above: Result Comment: No s erological evidence of a current Hepatitis A infection. See Interp Performed By: #### H EPAC #### [place] [address] Hep B Core IgM Ab Non-Reactive Normal Non-Reactive [facility] Comment on above: Performed By: #### H EPAC #### [place] [address] Hep B Core IgM Ab Int [facility] Comment on above: Result Comment: Samp les with a value < 0.80 Index are considered nonreactive (negative) for IgM antibodies to hepatitis B core antigen. See Interp Performed By: #### H EPAC #### [place] [address] Hep B Surf Ag Non-Reactive [facility] Comment on above: Performed By: #### H EPAC #### [place] [address] Hep C Ab Non-Reactive Normal Non-Reactive [facility] Comment on above: Performed By: #### H EPAC #### [place] [address] Hep C Ab Int [facility] Comment on above: Result Comment: Nonr eactive: Samples with a value < 0.80 are considered nonreactive (negative) for antibodies to HCV. A negative test result does not exclude the possibility of exposure to or infection with HCV. HCV antibodies may be undetectable in some stages of the infection and in some clinical conditions. See Interp Performed By: #### H [facility] #### [place] [address] LABORATORYOrdered By: SYSTEM SYSTEM on 07-22-2024 Calcium [Mass/Vol] 10.0 mg/dL Normal 8.7 - 10. 4 mg/dL AH ADM SS Chloride [Moles/Vol] 96 mmol/L Low 98 - 11 0 mEq/L AH ADM SS CO2 [Moles/Vol] 28 mmol/L Normal 22 - 32 mEq/L AH ADM SS Creatinine [Mass/Vol] 3.51 mg/dL High 0.60 - 1.40 mg/dL AH ADM SS Comment on above: Interpretive Data: T esting performed on Socialinus analyzer using enzymatic creatinine methodology. Electrolyte Balance 13.0 mEq/L Normal 4.0 - 15 .0 mEq/L AH ADM SS GFR/1.73 sq M.predicted among blacks MDRD (S/P/Bld) [Vol rate/Area] 23 ml/min/1.73sqm Invalid Interpretation Code D1G Chemistry S Comment on above: Interpretive Data: GFR Population mean for , Non- Americans Ages 20-29 = 116 mL/min/1.73 sq.m. Ages 30-39 = 107 mL/min/1.73 sq.m. Ages 40-49 = 99 mL/min/1.73 sq.m. Ages 50-59 = 93 mL/min/1.73 sq.m. Ages 60-69 = 85 mL/min/1.73 sq.m. Ages 70+ = 75 mL/min/1.73 sq.m. Chronic Kidney Disease: Less than 60 mL/min/1.73 square meters End Stage Renal Disease: Less than 15 mL/min/1.73 square meters GFR/1.73 sq M.predicted among non-blacks MDRD (S/P/Bld) [Vol rate/Area] 19 ml/min/1.73sqm Invalid Interpretation Code D1G Chemistry S Comment on above: Interpretive Data: GFR Population mean for , Non- Americans Ages 20-29 = 116 mL/min/1.73 sq.m. Ages 30-39 = 107 mL/min/1.73 sq.m. Ages 40-49 = 99 mL/min/1.73 sq.m. Ages 50-59 = 93 mL/min/1.73 sq.m. Ages 60-69 = 85 mL/min/1.73 sq.m. Ages 70+ = 75 mL/min/1.73 sq.m. Chronic Kidney Disease: Less than 60 mL/min/1.73 square meters End Stage Renal Disease: Less than 15 mL/min/1.73 square meters Glucose [Mass/Vol] 167 mg/dL High 70 - 110 mg/dL AH ADM SS Potassium [Moles/Vol] 4.7 mmol/L Normal 3.5 - 5.0 mEq/L AH ADM SS Sodium [Moles/Vol] 137 mmol/L Normal 136 - 145 mEq/L AH ADM SS Urea nitrogen [Mass/Vol] 33.0 mg/dL High 8.0 - 22.0 mg/dL AH ADM SS Urea nitrogen/Creatinine [Mass ratio] 9.4 ratio Low 10.0 - 22.0 ratio AH ADM SS Albumin BCP dye [Mass/Vol] 3.7 G/dL Normal 3.2 - 4.8 G/dL ADM SS Albumin/Globulin [Mass ratio] 1.0 {ratio} Normal 0.9 - 1.6 ratio AH ADM SS ALP [Catalytic activity/Vol] 192 U/L High 38 - 126 U/L ADM SS ALT No additional P-5'-P [Catalytic activity/Vol] 12 U/L Normal 12 - 55 U/L AH ADM SS AST [Catalytic activity/Vol] 11 U/L Normal 8 - 34 U/L ADM SS Basophils (Bld) [#/Vol] 0.0 103/mcL Normal 0.0 - 0.3 10^3/mcL Workflow SS Basophils/100 WBC (Bld) 0.3 % Normal 0.0 - 2.5 % Workflow SS Bilirubin [Mass/Vol] 0.30 mg/dL Normal 0.20 - 1.20 mg/dL AH ADM SS Comment on above: Interpretive Data: U se of this assay is not recommended for patients undergoing treatment with eltrombopag due to the potential for falsely elevated results. Calcium [Mass/Vol] 9.7 mg/dL Normal 8.7 - 10. 4 mg/dL ADM SS Chloride [Moles/Vol] 92 mmol/L Low 98 - 11 0 mEq/L ADM SS CO2 [Moles/Vol] 25 mmol/L Normal 22 - 32 mEq/L ADM SS Creatinine [Mass/Vol] 7.17 mg/dL High 0.60 - 1.40 mg/dL ADM SS Comment on above: Interpretive Data: T esting performed on Socialinus analyzer using enzymatic creatinine methodology. Electrolyte Balance 16.0 mEq/L High 4.0 - 15 .0 mEq/L ADM SS Eosinophils (Bld) [#/Vol] 0.1 103/mcL Normal 0.0 - 0.7 10^3/mcL Workflow SS Eosinophils/100 WBC (Bld) 0.5 % Normal 0.0 - 6.0 % Workflow SS Erythrocyte distribution width (RBC) [Ratio] 19.3 % High 11.5 - 15.5 % Workflow SS GFR/1.73 sq M.predicted among blacks MDRD (S/P/Bld) [Vol rate/Area] 10 ml/min/1.73sqm Invalid Interpretation Code D1G Chemistry S Comment on above: Interpretive Data: GFR Population mean for , Non- Americans Ages 20-29 = 116 mL/min/1.73 sq.m. Ages 30-39 = 107 mL/min/1.73 sq.m. Ages 40-49 = 99 mL/min/1.73 sq.m. Ages 50-59 = 93 mL/min/1.73 sq.m. Ages 60-69 = 85 mL/min/1.73 sq.m. Ages 70+ = 75 mL/min/1.73 sq.m. Chronic Kidney Disease: Less than 60 mL/min/1.73 square meters End Stage Renal Disease: Less than 15 mL/min/1.73 square meters GFR/1.73 sq M.predicted among non-blacks MDRD (S/P/Bld) [Vol rate/Area] 8 ml/min/1.73sqm Invalid Interpretation Code D1G Chemistry S Comment on above: Interpretive Data: GFR Population mean for , Non- Americans Ages 20-29 = 116 mL/min/1.73 sq.m. Ages 30-39 = 107 mL/min/1.73 sq.m. Ages 40-49 = 99 mL/min/1.73 sq.m. Ages 50-59 = 93 mL/min/1.73 sq.m. Ages 60-69 = 85 mL/min/1.73 sq.m. Ages 70+ = 75 mL/min/1.73 sq.m. Chronic Kidney Disease: Less than 60 mL/min/1.73 square meters End Stage Renal Disease: Less than 15 mL/min/1.73 square meters Globulin 3.7 G/dL Normal 1.5 - 3.8 G/dL ADM SS Glucose [Mass/Vol] 164 mg/dL High 70 - 110 mg/dL ADM SS Hematocrit (Bld) [Volume fraction] 33.6 % Low 40.0 - 52.0 % AH Workflow SS Hemoglobin (Bld) [Mass/Vol] 11.2 G/dL Low 13.0 - 17.5 G/dL AH Workflow SS Lymphocytes (Bld) [#/Vol] 0.2 103/mcL Low 0.9 - 4.3 10^3/mcL AH Workflow SS Lymphocytes/100 WBC (Bld) 1.6 % Low 20.0 - 40.0 % AH Workflow SS Magnesium [Mass/Vol] 3.3 mg/dL High 1.6 - 2 .4 mg/dL ADM SS MCH (RBC) [Entitic mass] 30.6 pg Normal 27.0 - 33.0 pg AH Workflow SS MCHC 33.2 G/dL Normal 32.0 - 36.0 G/dL AH Workflow SS MCV (RBC) [Entitic vol] 92.2 fL Normal 81.0 - 100.0 fL AH Workflow SS Monocytes (Bld) [#/Vol] 0.1 103/mcL Normal 0.1 - 1.4 10^3/mcL AH Workflow SS Monocytes/100 WBC (Bld) 0.9 % Low 2.0 - 13.0 % AH Workflow SS Neutrophils (Bld) [#/Vol] 12.0 103/mcL High 2.3 - 8.1 10^3/mcL AH Workflow SS Neutrophils/100 WBC (Bld) 96.7 % High 50.0 - 75.0 % AH Workflow SS Platelet mean volume (Bld) [Entitic vol] 6.6 fL Normal 6.4 - 10.5 fL AH Workflow SS Platelets (Bld) [#/Vol] 232 103/mcL Normal 150 - 450 10^3/mcL AH Workflow SS Potassium [Moles/Vol] 7.1 mmol/L Invalid Interpretation Code 3.5 - 5.0 mEq/L ADM SS Protein [Mass/Vol] 7.4 G/dL Normal 5.7 - 8.2 G/dL AH ADM SS RBC (Bld) [#/Vol] 3.65 106/mcL Low 4.50 - 6.0 0 10^6/mcL AH Workflow SS Sodium [Moles/Vol] 133 mmol/L Low 136 - 145 mEq/L AH ADM SS Troponin I.cardiac DL <= 0.01 ng/mL [Mass/Vol] 28 ng/L Normal 0 - 54 ng/L AH ADM SS Comment on above: Interpretive Data: High Sensitive Troponin I Reference Ranges: Female: 0-34 ng/L Male: 0-54 ng/L Testing performed on varinode analyzer using direct chemiluminescent technology. Urea nitrogen [Mass/Vol] 85.0 mg/dL High 8.0 - 22.0 mg/dL AH ADM SS Urea nitrogen/Creatinine [Mass ratio] 11.9 ratio Normal 10.0 - 22.0 ratio AH ADM SS WBC (Bld) [#/Vol] 12.4 103/mcL High 4.5 - 10.8 10^3/mcL AH Workflow SS Basophils (Bld) [#/Vol] 0.0 103/mcL Normal 0.0 - 0.2 10^3/mcL AO Workflow SS Basophils/100 WBC (Bld) 0.1 % Normal 0.0 - 2.5 % AO Workflow SS Calcium [Mass/Vol] 9.0 mg/dL Normal 8.4 - 10. 2 mg/dL AO ADM SS Chloride [Moles/Vol] 94 mmol/L Low 98 - 10 7 mmol/L AO ADM SS CO2 [Moles/Vol] 27 mmol/L Normal 22 - 29 mmol/L AO ADM SS Creatinine [Mass/Vol] 7.55 mg/dL High 0.70 - 1.30 mg/dL AO ADM SS Comment on above: Interpretive Data: T esting performed on Siemens Dimension EXL analyzer using a modified kinetic Janell technique. Electrolyte Balance 11.0 mEq/L Normal 4.0 - 15 .0 mEq/L AO ADM SS Eosinophil, Absolute 0.2 103/mcL Normal 0.0 - 0 .7 10^3/mcL AO Workflow SS Eosinophils/100 WBC (Bld) 2.4 % Normal 0.0 - 7.0 % AO Workflow SS Erythrocyte distribution width (RBC) [Ratio] 16.5 % High 11.5 - 15.5 % AO Workflow SS GFR/1.73 sq M.predicted among blacks MDRD (S/P/Bld) [Vol rate/Area] 9 ml/min/1.73sqm Invalid Interpretation Code AO Chemistry S Comment on above: Interpretive Data: GFR Population mean for , Non- Americans Ages 20-29 = 116 mL/min/1.73 sq.m. Ages 30-39 = 107 mL/min/1.73 sq.m. Ages 40-49 = 99 mL/min/1.73 sq.m. Ages 50-59 = 93 mL/min/1.73 sq.m. Ages 60-69 = 85 mL/min/1.73 sq.m. Ages 70+ = 75 mL/min/1.73 sq.m. Chronic Kidney Disease: Less than 60 mL/min/1.73 square meters End Stage Renal Disease: Less than 15 mL/min/1.73 square meters GFR/1.73 sq M.predicted among non-blacks MDRD (S/P/Bld) [Vol rate/Area] 8 ml/min/1.73sqm Invalid Interpretation Code AO Chemistry S Comment on above: Interpretive Data: GFR Population mean for , Non- Americans Ages 20-29 = 116 mL/min/1.73 sq.m. Ages 30-39 = 107 mL/min/1.73 sq.m. Ages 40-49 = 99 mL/min/1.73 sq.m. Ages 50-59 = 93 mL/min/1.73 sq.m. Ages 60-69 = 85 mL/min/1.73 sq.m. Ages 70+ = 75 mL/min/1.73 sq.m. Chronic Kidney Disease: Less than 60 mL/min/1.73 square meters End Stage Renal Disease: Less than 15 mL/min/1.73 square meters Glucose [Mass/Vol] 117 mg/dL High 70 - 105 mg/dL AO ADM SS Hematocrit (Bld) [Volume fraction] 31.1 % Low 40.0 - 52.0 % AO Workflow SS Hemoglobin (Bld) [Mass/Vol] 10.4 G/dL Low 13.0 - 17.5 G/dL AO Workflow SS Lymphocytes (Bld) [#/Vol] 0.9 103/mcL Normal 0.9 - 4.3 10^3/mcL AO Workflow SS Lymphocytes/100 WBC (Bld) 8.1 % Low 20.0 - 40.0 % AO Workflow SS Magnesium [Mass/Vol] 3.2 mg/dL High 1.8 - 2 .4 mg/dL AO ADM SS MCH (RBC) [Entitic mass] 30.3 pg Normal 27.0 - 33.0 pg AO Workflow SS MCHC 33.6 G/dL Normal 32.0 - 36.0 G/dL AO Workflow SS MCV (RBC) [Entitic vol] 90.1 fL Normal 81.0 - 100.0 fL AO Workflow SS Monocytes (Bld) [#/Vol] 0.6 103/mcL Normal 0.1 - 1.4 10^3/mcL AO Workflow SS Monocytes/100 WBC (Bld) 5.9 % Normal 2.0 - 13.0 % AO Workflow SS Neutrophils (Bld) [#/Vol] 9.6 103/mcL High 2.3 - 8.1 10^3/mcL AO Workflow SS Neutrophils/100 WBC (Bld) 83.2 % High 50.0 - 75.0 % AO Workflow SS Platelet mean volume (Bld) [Entitic vol] 6.6 fL Normal 6.4 - 10.5 fL AO Workflow SS Platelets (Bld) [#/Vol] 223 103/mcL Normal 150 - 450 10^3/mcL AO Workflow SS Potassium [Moles/Vol] 7.2 mmol/L Invalid Interpretation Code 3.5 - 5.1 mmol/L AO ADM SS RBC (Bld) [#/Vol] 3.45 106/mcL Low 4.50 - 6.0 0 10^6/mcL AO Workflow SS Sodium [Moles/Vol] 132 mmol/L Low 136 - 145 mmol/L AO ADM SS Troponin I.cardiac DL <= 0.01 ng/mL [Mass/Vol] 27 ng/L Normal 0 - 76 ng/L AO ADM SS Comment on above: Interpretive Data: H igh Sensitive Troponin I Reference Ranges: Female: 0-51 ng/L Male: 0-76 ng/L Testing performed on [employer] using a homogeneous sandwich chemiluminescent immunoassay based on Dipity technology. Urea nitrogen [Mass/Vol] 88 mg/dL High 7 - 18 mg/dL AO ADM SS Urea nitrogen/Creatinine [Mass ratio] 12 ratio Normal 7 - 27 ratio AO ADM SS WBC (Bld) [#/Vol] 11.6 103/mcL High 4.5 - 10.8 10^3/mcL AO Workflow SS LABORATORYOrdered By: Deonna Urban on 07-22-2024 HAV IgM IA Ql Non-Reactive (07/22/24 9:07 AM) Normal Non-Reactive AH ADM SS HAV IgM IA Ql No serological evidence of a current Hepatitis A infection. Invalid Interpretation Code AH Chemistry S HBV core IgM IA Ql Non-Reactive (07/22/24 9:07 AM) Normal Non-Reactive AH ADM SS HBV core IgM IA Ql Samples with a value < 0.80 Index are considered nonreactive (negative) for IgM antibodies to hepatitis B core antigen. Invalid Interpretation Code AH Chemistry S HBV surface Ag IA Ql Non-Reactive (07/22/24 9:07 AM) Normal Non-Reactive AH ADM SS HCV Ab IA Ql Non-Reactive (07/22/24 9:07 AM) Normal Non-Reactive AH ADM SS HCV Ab IA Ql Nonreactive: Samples with a value < 0.80 are considered nonreactive (negative) for antibodies to HCV.A negative test result does not exclude the possibility of exposure to or infection with HCV. HCV antibodies may be undetectable in some stages of the infection and in some clinical conditions. Invalid Interpretation Code Chemistry S LABORATORYOrdered By: Maribell Mckeon on 07-22-2024 Blood Glucose Testing Reason Routine (07/22/24 8:11 AM) [facility] LABORATORYOrdered By: William Hayward on 07-22-2024 Blood Glucose Testing Reason Routine (07/22/24 3:45 AM) [facility] Glucose [Mass/Vol] 117 mg/dL High 70 - 110 mg/dL [facility] LABORATORYOrdered By: Elva Phillips on 07-22-2024 Natriuretic peptide.B prohormone N-Terminal [Mass/Vol] pg/mL High 0 - 125 pg/mL AO Chemistry S FLUAV RNA GLENN+probe Ql (Resp) Negative (07/22/24 2:36 AM) Normal Negative AO Auto Urine SS FLUBV RNA GLENN+probe Ql (Resp) Negative (1/8/25 2:36 AM) Normal Negative AO Auto Urine SS Monocyte distribution width Auto (Bld) [Entitic vol] Not tested 1 (07/22/24 2:36 AM) Normal 0.00 - 20.00 AO Hematology S Comment on above: Result Comment: MDW testing unable to be performed on [id number] instrumentation. RSV RNA GLENN+probe Ql (Resp) Negative (07/22/24 2:36 AM) Normal Negative AO Auto Urine SS SARS-CoV-2 (COVID-19) RNA GLENN+probe Ql (Resp) Negative 4 (07/22/24 2:36 AM) Normal Negative AO Auto Urine SS Comment on above: Interpretive Data: R esults from the Xpert Xpress CoV-2/Flu/RSV plus test should be correlated with the clinical history, epidemiological data, and other data available to the clinical evaluating the patient. Performance of the Xpert Xpress CoV-2/Flu/RSV plus test has only been established in nasopharyngeal swab specimen. Erroneous test results might occur from improper specimen collection, failure to follow the recommended sample collection, handling and storage procedures, technical error, or sample mix-up. False negative results may occur if a virus is present at a level below the analytical limit of detection. Viral nucleic acid may persist in vivo, independent of virus viability. Detection of analyte target(s) does not imply that the corresponding virus(es) are infectious or are the causative agents for clinical symptoms. Recent patient exposure to FluMist or other live attenuated influenza vaccines may cause inaccurate positive results. MGon 07-22-2024 Magnesium [Mass/Vol] 3.3 mg/dL High 1.6-2.4 [facility] Comment on above: Performed By: #### G FR, ANEU, BMP, ADIFF, CBC #### [facility] [address] [place] [address] Magnesium [Mass/Vol] 3.2 mg/dL High 1.8-2.4 [facility] Comment on above: Performed By: #### M G #### [facility] [address] [place], [place] [address] PBNPon 07-22-2024 N-Terminal proBNP >30828 High 0-125 [facility] Comment on above: Performed By: #### C VFLURV #### [place] [address] [place], [place] [address] TROPHSon 07-22-2024 High Sensitivity Troponin I 28 ng/L Normal 0-54 [facility] Comment on above: Result Comment: High Sensitive Troponin I Reference Ranges: Female: 0-34 ng/L Male: 0-54 ng/L Testing performed on [employer] IM analyzer using direct chemiluminescent technology. Performed By: #### G FR, ANEU, BMP, ADIFF, CBC #### [facility] [address] [place] [id number] High Sensitivity Troponin I 27 ng/L Normal 0-76 [facility] Comment on above: Result Comment: High Sensitive Troponin I Reference Ranges: Female: 0-51 ng/L Male: 0-76 ng/L Testing performed on [employer] using a homogeneous sandwich chemiluminescent immunoassay based on LOCI technology. Performed By: #### G FR, MDW, CBC, ADIFF, ANEU, BMP, TROPHS #### [place] [address] [place], [place] [address] XR CHEST 1 VIEWon 07-22-2024 XR CHEST 1 VIEW ORIGINAL EXAMINATION: ONE XRAY VIEW OF THE CHEST 07/22/2024 2:50 am COMPARISON: None. HISTORY: ORDERING SYSTEM PROVIDED HISTORY: Reason for Exam: dyspnea FINDINGS: Sternal wire sutures are intact. There is mild cardiomegaly. Mild pulmonary edema is present. Small left pleural effusion is evident. There is no visible pneumothorax. No acute skeletal abnormality is detected. IMPRESSION: Mild congestive heart failure with small left pleural effusion. Interpreted by: Leo Cruz MD Preliminary Report By: Leo Cruz MD Electronically signed By Leo Cruz MD Dictated Date: 07/22/2024 2:58:52 AM Prelim Date: 07/22/2024 3:00:32 AM Sign Date: 07/22/2024 3:00:32 AM Ordering Provider: KIZZY MEDEROS [facility] 12 Lead EKGon 02-09-2024 12 Lead EKG [facility] Cardiovascular Services [address] [place] [address] 12 Lead EKG 02/09/24 1529 MR#: [id number] Acct: [id number] Name: AGUSTO MONSALVE #: [id number] : 1975 48 From: Santos Posey MD Attending Dr: Status: DEP ER Ordering Dr: Benny Knight Date: 02/09/24 Location: ED Sex: M C Admitted: Test Reason : SOB Blood Pressure : / mmHG Vent. Rate : 075 BPM Atrial Rate : 075 BPM P-R Int : 220 ms QRS Dur : 182 ms QT Int : 510 ms P-R-T Axes : 076 -58 024 degrees QTc Int : 569 ms Sinus rhythm with 1st degree A-V block Left axis deviation Right bundle branch block Abnormal ECG Confirmed by GIANNI TO, AFUA ([id number]), editor farm journal MOHAMUD RIVERA ([id number]) on 02/11/2024 2:27:40 PM Referred By: SANDRO/WOOD Confirmed By:DANIELA POSEY MD 02/11/24 142 Date Santos Posey MD CC: DARIEN Knight; Dr. Bella Oneal MD; Dr. Jason Morris MD Signed Normal [facility] Basic Metabolic Profile (BMP )on 02-09-2024 BUN/CRE 9.2 RATIO Low 10-20 [facility] Comment on above: Performed By: #### L 100.0100, L500.2500 #### [facility] [address] [place], [address] CA,Total 8.5 mg/dL Normal 8.5-10.1 [facility] Comment on above: Performed By: #### L 100.0100, L500.2500 #### [facility] [address] [place], [address] Chloride [Moles/Vol] 94 mmol/L Low 98-107 [facility] Comment on above: Performed By: #### L 100.0100, L500.2500 #### [facility] [address] [place], [address] CO2 [Moles/Vol] 23.0 mmol/L Normal 21.0-32.0 [facility] Comment on above: Performed By: #### L 100.0100, L500.2500 #### [facility] [address] [place], [address] Creatinine [Mass/Vol] 4.67 mg/dL High 0.70-1.30 [facility] Comment on above: Result Comment: The validity of the calculated GFR GFRAA in patients over 70 years has not been determined. Clinical correlation is essential. Performed By: #### L 100.0100, L500.2500 #### [facility] [address] [place], [address] ECRCL 19.70 ml/min Normal [facility] Comment on above: Performed By: #### L 100.0100, L500.2500 #### [facility] [address] [place], [address] EST GFR - AA 17 mL/min Low >60 [facility] Comment on above: Result Comment: Afri can Ecuadorean GFR Calc Performed By: #### L 100.0100, L500.2500 #### [facility] [address] [place], [address] GAP 13 Normal 5-15 [facility] Comment on above: Performed By: #### L 100.0100, L500.2500 #### [facility] [address] [place], [address] GFR/1.73 sq M.predicted among non-blacks MDRD (S/P/Bld) [Vol rate/Area] 14 mL/min/{1.73_m2} Low >60 [facility] Comment on above: Result Comment: Non- GFR Calc Performed By: #### L 100.0100, L500.2500 #### [facility] [address] [place], [address] Glucose [Mass/Vol] 115 mg/dL High 74-106 [facility] Comment on above: Result Comment: Fast ing Glucose result from 100 to 125 mg/dL suggests IMPAIRED HOMEOSTASIS per A.D.A. criteria. Performed By: #### L 100.0100, L500.2500 #### [facility] [address] [place], [address] Potassium [Moles/Vol] 4.0 mmol/L Normal 3.5-5.1 [facility] Comment on above: Performed By: #### L 100.0100, L500.2500 #### [facility] [address] [place], [address] Sodium [Moles/Vol] 130 mmol/L Low 136-145 [facility] Comment on above: Performed By: #### L 100.0100, L500.2500 #### [facility] [address] [place], [address] Urea nitrogen [Mass/Vol] 43 mg/dL High 7-18 [facility] Comment on above: Performed By: #### L 100.0100, L500.2500 #### [facility] [address] [place], [address] CBC W/Diff, Automatedon 07-2 Absolute Lymph 0.97 X10 3/uL Normal 0.83-4.51 [facility] Comment on above: Performed By: #### L 100.0100, L500.2500 #### [facility] [address] [place], [address] Absolute Neut 5.2 X10 3/uL Normal 2.0-7.7 [facility] Comment on above: Performed By: #### L 100.0100, L500.2500 #### [facility] [address] [place], [address] Basophils/100 WBC (Bld) 0.6 % Normal 0-1 [facility] Comment on above: Performed By: #### L 100.0100, L500.2500 #### [facility] [address] [place], [address] Eosinophils/100 WBC (Bld) 1.5 % Normal 0-5 [facility] Comment on above: Performed By: #### L 100.0100, L500.2500 #### [facility] [address] [place], [address] Erythrocyte distribution width (RBC) [Ratio] 19.2 % High 11.6-14.6 [facility] Comment on above: Performed By: #### L 100.0100, L500.2500 #### [facility] [address] [place], [address] Hematocrit (Bld) [Volume fraction] 25.1 % Low 40-54 [facility] Comment on above: Performed By: #### L 100.0100, L500.2500 #### [facility] [address] [place], [address] Hemoglobin (Bld) [Mass/Vol] 8.1 g/dL Low 13.0-16.5 [facility] Comment on above: Performed By: #### L 100.0100, L500.2500 #### [facility] [address] [place], [address] IG% 0.300 Normal 0.0-0.9 [facility] Comment on above: Result Comment: IG% - Immature Granulocytes (promyelocytes, myelocytes and metamyelocytes) > 1% indicates that a LEFT SHIFT is Present. Performed By: #### L 100.0100, L500.2500 #### [facility] [address] [place], [address] Lymphocytes/100 WBC (Bld) 14.6 % Low 19-41 [facility] Comment on above: Performed By: #### L 100.0100, L500.2500 #### [facility] [address] [place], [address] MCH (RBC) [Entitic mass] 27.6 pg Normal 27.0-32.0 [facility] Comment on above: Performed By: #### L 100.0100, L500.2500 #### [facility] [address] [place], [address] MCHC (RBC) [Mass/Vol] 32.3 g/dL Normal 32-36 [facility] Comment on above: Performed By: #### L 100.0100, L500.2500 #### [facility] [address] [place], [address] MCV (RBC) [Entitic vol] 85.4 fL Normal 80-94 [facility] Comment on above: Performed By: #### L 100.0100, L500.2500 #### [facility] [address] [place], [address] Monocytes/100 WBC (Bld) 5.6 % Normal 0-10 [facility] Comment on above: Performed By: #### L 100.0100, L500.2500 #### [facility] [address] [place], [address] Neutrophils/100 WBC (Bld) 77.4 % High 47-70 [facility] Comment on above: Performed By: #### L 100.0100, L500.2500 #### [facility] [address] [place], [address] Nucleated RBC (Bld) [#/Vol] 0 10*3/uL Normal 0-5 [facility] Comment on above: Performed By: #### L 100.0100, L500.2500 #### [facility] [address] [place], [address] Platelet mean volume (Bld) [Entitic vol] 8.7 fL Normal 6.2-12.0 [facility] Comment on above: Performed By: #### L 100.0100, L500.2500 #### [facility] [address] [place], [address] Platelets (Bld) [#/Vol] 194 10*3/uL Normal 150-450 [facility] Comment on above: Performed By: #### L 100.0100, L500.2500 #### [facility] [address] [place], [address] RBC (Bld) [#/Vol] 2.94 10*6/uL Low 4.6-6.2 [facility] Comment on above: Performed By: #### L 100.0100, L500.2500 #### [facility] [address] [place], [address] RDW SD 60.3 fl High 35.1-43.9 [facility] Comment on above: Performed By: #### L 100.0100, L500.2500 #### [facility] [address] [place], [address] WBC (Bld) [#/Vol] 6.7 10*3/uL Normal 4.4-11.0 [facility] Comment on above: Performed By: #### L 100.0100, L500.2500 #### [facility] [address] [place], [address] Chest 1 View (Portable)on Chest 1 View (Portable) [facility] Imaging Services [address] [place] [address] Chest 1 View (Portable) MR#: [id number] Acct: [id number] Name: AGUSTO MONSALVE Rep #: [id number] : 1975 M 48 From: Santana Saab MD PCP: Dr. Bella Oneal MD Status: REG ER Study: Chest 1 View (Portable) Date of Exam: 02/09/24 Exam# [id number] Ordering Dr: Benny Knight [id number] STUDY: X-RAY CHEST REASON FOR EXAM: Male, 48 years old. shortness of breath TECHNIQUE: AP portable COMPARISON: None. FINDINGS: Postop change status post median sternotomy and CABG. Mild right lower lobe atelectasis or infiltrate and discoid atelectasis in the lingula.. There is no demonstrated pleural abnormality. Heart is enlarged.. Normal mediastinum and tameka. Normal visualized pulmonary arteries. Normal visualized aortic arch and descending thoracic aorta. Normal visualized thoracic spine. Normal visualized ribs, clavicles, and shoulders. There is no demonstrated abnormality of the visualized soft tissue structures of the upper abdomen. RAD/Chest 1 View (Portable) IMPRESSION: Mild right lower lobe atelectasis or infiltrate and discoid atelectasis of the lingula Electronically Signed: Santana Saab MD at 16:29 EDT Reading Location ID and State: [address] [place] [address] Tel , Service support , CC: DARIEN Knight; Dr. Bella Oneal MD Leadership Program Intern: Signed Normal [facility] Emergency Department Summary on 02-09-2024 Emergency Department Summary [facility] Medical Records Department [address] [place] [address] Emergency Department Summary 02/09/24 MR#: [id number] Acct: [id number] Name: AGUSTO MONSALVE Rep #: [id number] : 1975 48 From: Benny LEDEZMA PCP: Dr. Bella Oneal MD Status:DEP ER Location: ED HPI History of Present Illness Chief Complaint: Shortness of Breath Narrative Narrative: Patient is a 48-year-old male with history of end-stage renal disease, diabetes, COPD, bilateral ufxlu-adn-mxjl amputee who is nonambulatory who lives at home with his friend and his . Patient is a originally from here however lived in [place] from 2020 until 3 months ago. Patient was in a shelter down there. He wanted to do something different so he got out of the shelter and came here, and he thinks that he made a mistake. Patient states he has been short of breath for the last 3 months, it was slightly more today. He does have history of chronic shoulder pain, states it was bothering him so bad on Saturday that he could not finish his dialysis and was finished 30 minutes early. Patient states that the shortness of breath is worse to go to the toilet is here for evaluation. Denies any fevers or chills. [facility] Medical History GERD (gastroesophageal reflux disease) Cataracts, bilateral Hypocalcemia Hepatitis IBS (irritable bowel syndrome) Peritoneal dialysis catheter site infection CAD (coronary artery disease) Peritonitis Recurrent UTI Urinary retention Neuropathy COPD (chronic obstructive pulmonary disease) Hyperlipidemia due to type 2 diabetes mellitus Hypertension Dialysis patient Diabetes Home Medications ???Medication ???Instructions ???Recorded ???Last Taken ???Type diphenhydramine HCl 25 mg capsule 25 mg PO QHS 12/17/23 Unknown History (Banophen) docusate sodium 100 mg capsule 100 mg PO BID 12/17/23 Unknown History fluticasone 250 mcg-salmeterol 50 1 ea inhalation BID 12/17/23 Unknown History mcg/dose blistr powdr for inhalation (Advair Diskus) fluticasone propionate 50 intranasal 12/17/23 Unknown History mcg/actuation nasal spray,suspension gabapentin 300 mg capsule 300 mg PO QDAY 12/17/23 Unknown History handicap placard #1 ea 12/17/23 Unknown Rx insulin glargine 100 unit/mL (3 unit subcut 12/17/23 Unknown History mL) subcutaneous pen (Lantus Solostar U-100 Insulin) polyethylene glycol 3350 17 g PO QDAY 12/17/23 Unknown History gram/dose oral powder sodium chloride 0.65 % nasal spray spray intranasal 12/17/23 Unknown History aerosol (Deep Sea Nasal) amlodipine 10 mg tablet 10 mg PO QDAY #90 tabs 12/24/23 Unknown Rx aspirin 81 mg tablet,delayed 81 mg PO QDAY #90 tabs 12/24/23 Unknown Rx release atorvastatin 40 mg tablet 40 mg PO QDAY #90 tabs 12/24/23 Unknown Rx cyclobenzaprine 10 mg tablet 10 mg PO QHS #90 tabs 12/24/23 Unknown Rx lidocaine 4 % topical patch 1 patch topical DAILY PRN pain #30 12/24/23 Unknown Rx (Lidocaine Pain Relief) ea magnesium oxide 400 mg (241.3 mg 400 mg PO TID #90 tabs 12/24/23 Unknown Rx magnesium) tablet melatonin 5 mg tablet 5 mg PO QHS #90 tabs 12/24/23 Unknown Rx ondansetron HCl 4 mg tablet 4 mg PO DAILY #90 tabs 12/24/23 Unknown Rx pantoprazole 40 mg tablet,delayed 40 mg PO QDAY #90 tabs 12/24/23 Unknown Rx release tamsulosin 0.4 mg capsule 0.4 mg PO QDAY #90 caps 12/24/23 Unknown Rx acetaminophen 650 mg 650 mg PO Q8H PRN pain #90 tabs 01/09/24 Unknown Rx tablet,extended release (Tylenol Arthritis Pain) flash glucose scanning reader #1 ea 01/09/24 Unknown Rx (FreeStyle Bianca 2 [place]) flash glucose sensor (FreeStyle #1 ea 01/09/24 Unknown Rx Bianca 2 Sensor kit) miscellaneous medical supply 1 ea miscellaneous DIRECTED #6 01/09/24 Unknown Rx ea miscellaneous medical supply 1 ea miscellaneous DIRECTED 01/09/24 Unknown Rx bowel incontinence #1 ea incontinence pad, liner, disp #80 ea 01/14/24 Unknown Rx diclofenac sodium 1 % topical gel 2 g topical Q8H PRN PRN pain 7 01/21/24 Unknown Rx (Voltaren Arthritis Pain) days #100 grams albuterol sulfate 90 mcg/actuation 1 puff inhalation Q6-8H PRN 01/27/24 Unknown Rx aerosol inhaler shortness of breath or wheezing #8.5 grams Allergy/AdvReac Type Severity Reaction Status Date / Time No Known Allergies Allergy Verified 02/09/24 15:14 Family History Father Heart disease Hypertension Hyperlipidemia Grandmother Heart disease Diabetes Mother MVA (motor vehicle accident) Brother Cancer lymphoma Surgical History S/P bilateral BKA (below knee amputation) Port-A-Cath in place S/P arteriovenous (AV) (more content not included)... Normal [facility] M100.678on 02-09-2024 M100.678 SARS-CoV-2 (COVID 19) Negative INFLUENZA A Negative INFLUENZA B Negative RSV PCR Negative Normal [facility] Comment on above: Performed By: #### L 400.0001, M1.8 ####[facility] [address] [place], [address] Urinalysis, Completeon 02-08 BACTERIA Normal None Seen [facility] Comment on above: Order Comment: COLLE CTOR TO SPECIFY Result Comment: Canc elled via OM: MD Ordered Performed By: #### L 400.0001, .8 ####[facility] [address] [place], [address] BILIRUBIN URINE Normal Negative [facility] Comment on above: Order Comment: COLLE CTOR TO SPECIFY Result Comment: Canc elled via OM: MD Ordered Performed By: #### L 400.0001, ####[facility] [address] [place], [address] Clarity (U) Normal Clear [facility] Comment on above: Order Comment: COLLE CTOR TO SPECIFY Result Comment: Canc elled via OM: MD Ordered Performed By: #### L 400.0001, M1.8 ####[facility] [address] [place], [address] Color (U) Normal Yellow [facility] Comment on above: Order Comment: COLLE CTOR TO SPECIFY Result Comment: Canc elled via OM: MD Ordered Performed By: #### L 400.0001, M1.8 ####[facility] [address] [place], [address] EPI,SQUAMOUS Normal 0-5 [facility] Comment on above: Order Comment: RICHARD CTOR TO SPECIFY Result Comment: Canc elled via OM: MD Ordered Performed By: #### L 400.0001, 8 ####[facility] [address] [place], [address] GLUCOSE, UR Normal Normal [facility] Comment on above: Order Comment: COLLE CTOR TO SPECIFY Result Comment: Canc elled via OM: MD Ordered Performed By: #### L 400.0001, ####[facility] [address] [place], [address] KETONE UR Normal Negative [facility] Comment on above: Order Comment: RICHARD CTOR TO SPECIFY Result Comment: Canc elled via OM: MD Ordered Performed By: #### L 400.0001, ####[facility] [address] [place], [address] LEUK ESTERASE Normal Negative [facility] Comment on above: Order Comment: RICHARD CTOR TO SPECIFY Result Comment: Canc elled via OM: MD Ordered Performed By: #### L 400.0001, ####[facility] [address] [place], [address] Mucus Ql (Urine sed) Normal [facility] Comment on above: Order Comment: RICHARD CTOR TO SPECIFY Result Comment: Canc elled via OM: MD Ordered Performed By: #### L 400.0001, ####[facility] [address] [place], [address] Nitrite Ql (U) Normal Negative [facility] Comment on above: Order Comment: RICHARD CTOR TO SPECIFY Result Comment: Canc elled via OM: MD Ordered Performed By: #### L 400.0001, ####[facility] [address] [place], [address] OCCULT BLOOD-UR Normal Negative [facility] Comment on above: Order Comment: COLLE CTOR TO SPECIFY Result Comment: Canc elled via OM: MD Ordered Performed By: #### L 400.0001, ####[facility] [address] [place], [address] pH UR Normal 5.0 - 8.0 [facility] Comment on above: Order Comment: COLLE CTOR TO SPECIFY Result Comment: Canc elled via OM: MD Ordered Performed By: #### L 400.0001, ####[facility] [address] [place], [address] PROT DIPSTX Normal Negative [facility] Comment on above: Order Comment: RICHARD CTOR TO SPECIFY Result Comment: Canc elled via OM: MD Ordered Performed By: #### L 400.0001, ####[facility] [address] [place], [address] RBC Normal 0-5 [facility] Comment on above: Order Comment: RICHARD CTOR TO SPECIFY Result Comment: Canc elled via OM: MD Ordered Performed By: #### L 400.0001, ####[facility] [address] [place], [address] SP.GR. DIPSTX Normal 1.002-1.030 [facility] Comment on above: Order Comment: RICHARD CTOR TO SPECIFY Result Comment: Canc elled via OM: MD Ordered Performed By: #### L 400.0001, ####[facility] [address] [place], [address] UR Preservative Normal [facility] Comment on above: Order Comment: RICHARD CTOR TO SPECIFY Result Comment: Canc elled via OM: MD Ordered Performed By: #### L 400.0001, M100.678 ####[facility] [address] [place], [address] UROBILI Normal Normal [facility] Comment on above: Order Comment: COLLE CTOR TO SPECIFY Result Comment: Canc elled via OM: MD Ordered Performed By: #### L 400.0001, M100.678 ####[facility] [address] [place], [address] WBC Normal 0-5 [facility] Comment on above: Order Comment: COLLE CTOR TO SPECIFY Result Comment: Canc elled via OM: MD Ordered Performed By: #### L 400.0001, M100.678 ####[facility] [address] [place], [address] Miscellaneous Lab Procedureo n 01-30-2024 MISC LAB TEST Normal [facility] Comment on above: Order Comment: LC700 902 / DRUG SCREEN 16 / RIVERA SOD-FL / WHOLE BLOOD Result Comment: TEST RESULTS LIMITS Drug Screen 16 w/Conf, WB AMPHETAMINES, [place] Negative ng/mL Cutoff:50 BARBITURATES, IA Negative ug/mL Cutoff:0.1 BENZODIAZEPINES, [place] Negative ng/mL Cutoff:20 COCAINE/METABOLITE,[place] Negative ng/mL Cutoff:25 PHENCYCLIDINE, IA Negative ng/mL Cutoff:8 THC (MARIJUANA) MTB,IA ++POSITIVE++ ng/mL Cutoff:5 OPIATES, IA Negative ng/mL Cutoff:5 OXYCODONES, [place] Negative ng/mL Cutoff:5 METHADONE, IA Negative ng/mL Cutoff:25 FENTANYL, IA Negative ng/mL Cutoff:1.0 BUPRENORPHINE, [place] Negative ng/mL Cutoff:1.0 PROPOXYPHENE, IA Negative ng/mL Cutoff:50 MEPERIDINE, IA Negative ng/mL Cutoff:100 TRAMADOL, IA Negative ng/mL Cutoff:50 GABAPENTIN, IA Negative ug/mL Cutoff:1.0 CARISOPRODOL, IA Negative ug/mL Cutoff:0.5 This test was developed and its performance characteristics determined by [facility]. It has not been cleared or approved by the Food and Drug Administration. THC,MS,WB/SP RFX Cannabinoid Confirmation Positive Tetrahydrocannabinol(THC) Negative ng/mL Carboxy-THC 8.3 ng/mL Hydroxy-THC Negative ng/mL Cannabidiol Negative ng/mL Confirmation threshold: 1.0 ng/mL TESTING PERFORMED AT [facility]. ORIGINAL REPORT ON FILE IN LAB CONTAINS ADDITIONAL TEST SITE INFORMATION. Performed By: #### L 801.1541 #### [facility] [address] [place], [address] Internal Medicine Office Vis itozoran 01-23-2024 Internal Medicine Office Visit [facility] [address] [place] [address] [place] [address] OFFICE VISIT Date of Service: 01/23/24 MR#: [id number] Acct: [id number] Name: AGUSTO MONSALVE Rep #: [id number] : 1975 Provider: DARIEN anderson Age/Sex: 48/M Location: [facility] Status: Signed Intake Vital Signs 01/21/24 11:59 01/23/24 12:46 Height 0 in BP 122/72 H Blood Pressure Location Lt brachial Position Sitting Respiration 16 Pulse 84 Pulse Source Monitor Temp 97.1 F L Temp Source Temporal Pulse Oximetry (%) 98 Oxygen Delivery Method room air Intake Visit Reasons: acute - discuss shelter Chief Complaint: discuss shelter admin Pulverizing And Sifting Operator Required: No Accompanied by: Self Is patient in pain?: No Allergies No Known Allergies Allergy (Verified 01/23/24 12:41) Medications ???Medication ???Instructions ???Recorded ???Confirmed ???Type diphenhydramine HCl 25 mg capsule 25 mg PO QHS 12/17/23 01/23/24 History (Banophen) docusate sodium 100 mg capsule 100 mg PO BID 12/17/23 01/23/24 History fluticasone 250 mcg-salmeterol 50 1 ea inhalation BID 12/17/23 01/23/24 History mcg/dose blistr powdr for inhalation (Advair Diskus) fluticasone propionate 50 intranasal 12/17/23 01/23/24 History mcg/actuation nasal spray,suspension gabapentin 300 mg capsule 300 mg PO QDAY 12/17/23 01/23/24 History handicap placard #1 ea 12/17/23 01/23/24 Rx insulin glargine 100 unit/mL (3 unit subcut 12/17/23 01/23/24 History mL) subcutaneous pen (Lantus Solostar U-100 Insulin) polyethylene glycol 3350 17 g PO QDAY 12/17/23 01/23/24 History gram/dose oral powder sodium chloride 0.65 % nasal spray spray intranasal 12/17/23 01/23/24 History aerosol (Deep Sea Nasal) albuterol sulfate 90 mcg/actuation 1 puff inhalation Q6-8H PRN 12/24/23 01/23/24 Rx aerosol inhaler shortness of breath or wheezing #8.5 grams amlodipine 10 mg tablet 10 mg PO QDAY #90 tabs 12/24/23 01/23/24 Rx aspirin 81 mg tablet,delayed 81 mg PO QDAY #90 tabs 12/24/23 01/23/24 Rx release atorvastatin 40 mg tablet 40 mg PO QDAY #90 tabs 12/24/23 01/23/24 Rx cyclobenzaprine 10 mg tablet 10 mg PO QHS #90 tabs 12/24/23 01/23/24 Rx lidocaine 4 % topical patch 1 patch topical DAILY PRN pain #30 12/24/23 01/23/24 Rx (Lidocaine Pain Relief) ea magnesium oxide 400 mg (241.3 mg 400 mg PO TID #90 tabs 12/24/23 01/23/24 Rx magnesium) tablet melatonin 5 mg tablet 5 mg PO QHS #90 tabs 12/24/23 01/23/24 Rx ondansetron HCl 4 mg tablet 4 mg PO DAILY #90 tabs 12/24/23 01/23/24 Rx pantoprazole 40 mg tablet,delayed 40 mg PO QDAY #90 tabs 12/24/23 01/23/24 Rx release tamsulosin 0.4 mg capsule 0.4 mg PO QDAY #90 caps 12/24/23 01/23/24 Rx acetaminophen 650 mg 650 mg PO Q8H PRN pain #90 tabs 01/09/24 01/23/24 Rx tablet,extended release (Tylenol Arthritis Pain) flash glucose scanning reader #1 ea 01/09/24 01/23/24 Rx (FreeStyle Bianca 2 [place]) flash glucose sensor (FreeStyle #1 ea 01/09/24 01/23/24 Rx Bianca 2 Sensor kit) miscellaneous medical supply 1 ea miscellaneous DIRECTED #6 01/09/24 01/23/24 Rx ea miscellaneous medical supply 1 ea miscellaneous DIRECTED 01/09/24 01/23/24 Rx bowel incontinence #1 ea incontinence pad, liner, disp #80 ea 01/14/24 01/23/24 Rx diclofenac sodium 1 % topical gel 2 g topical Q8H PRN PRN pain 7 01/21/24 01/23/24 Rx (Voltaren Arthritis Pain) days #100 grams PFSH Medical History GERD (gastroesophageal reflux disease) Cataracts, bilateral Hypocalcemia Hepatitis IBS (irritable bowel syndrome) Peritoneal dialysis catheter site infection CAD (coronary artery disease) Peritonitis Recurrent UTI Urinary retention Neuropathy COPD (chronic obstructive pulmonary disease) Hyperlipidemia due to type 2 diabetes mellitus Hypertension Dialysis patient Diabetes Surgical History S/P bilateral BKA (below knee amputation) Port-A-Cath in place S/P arteriovenous (AV) fistula creation Hx of CABG Amputation leg, bilat H/O local excision of skin lesion H/O hernia repair Family History Father Heart disease Hypertension Hyperlipidemia Grandmother Heart disease Diabetes Mother MVA (motor vehicle accident) Brother Cancer lymphoma Social History adopted: No household members: family and other details: niece and niece's number of children: 4 current occupational status: disabled pets and animals: Yes pets and animals: cat(s) and dog(s) Smoking Status: Former smoker quit date: 07/15/18 pack-years: 70 Tobacco: How many years used: 35 Electronic Cigarette (more content not included)... Normal [facility] Emergency Department Summary on 01-21-2024 Emergency Department Summary [facility] Medical Records Department [address] [place] [address] Emergency Department Summary 01/21/24 MR#: [id number] Acct: [id number] Name: AGUSTO MONSALVE Rep #: [id number] : 1975 48 From: [place] DO PCP: Dr. Bella Oneal MD Status:DEP ER Location: ED HPI History of Present Illness Chief Complaint: Upper Extremity Injury [facility] Medical History GERD (gastroesophageal reflux disease) Cataracts, bilateral Hypocalcemia Hepatitis IBS (irritable bowel syndrome) Peritoneal dialysis catheter site infection CAD (coronary artery disease) Peritonitis Recurrent UTI Urinary retention Neuropathy COPD (chronic obstructive pulmonary disease) Hyperlipidemia due to type 2 diabetes mellitus Hypertension Dialysis patient Diabetes Home Medications ???Medication ???Instructions ???Recorded ???Last Taken ???Type diphenhydramine HCl 25 mg capsule 25 mg PO QHS 12/17/23 Unknown History (Banophen) docusate sodium 100 mg capsule 100 mg PO BID 12/17/23 Unknown History fluticasone 250 mcg-salmeterol 50 1 ea inhalation BID 12/17/23 Unknown History mcg/dose blistr powdr for inhalation (Advair Diskus) fluticasone propionate 50 intranasal 12/17/23 Unknown History mcg/actuation nasal spray,suspension gabapentin 300 mg capsule 300 mg PO QDAY 12/17/23 Unknown History handicap placard #1 ea 12/17/23 Unknown Rx insulin glargine 100 unit/mL (3 unit subcut 12/17/23 Unknown History mL) subcutaneous pen (Lantus Solostar U-100 Insulin) polyethylene glycol 3350 17 g PO QDAY 12/17/23 Unknown History gram/dose oral powder sodium chloride 0.65 % nasal spray spray intranasal 12/17/23 Unknown History aerosol (Deep Sea Nasal) albuterol sulfate 90 mcg/actuation 1 puff inhalation Q6-8H PRN 12/24/23 Unknown Rx aerosol inhaler shortness of breath or wheezing #8.5 grams amlodipine 10 mg tablet 10 mg PO QDAY #90 tabs 12/24/23 Unknown Rx aspirin 81 mg tablet,delayed 81 mg PO QDAY #90 tabs 12/24/23 Unknown Rx release atorvastatin 40 mg tablet 40 mg PO QDAY #90 tabs 12/24/23 Unknown Rx cyclobenzaprine 10 mg tablet 10 mg PO QHS #90 tabs 12/24/23 Unknown Rx lidocaine 4 % topical patch 1 patch topical DAILY PRN pain #30 12/24/23 Unknown Rx (Lidocaine Pain Relief) ea magnesium oxide 400 mg (241.3 mg 400 mg PO TID #90 tabs 12/24/23 Unknown Rx magnesium) tablet melatonin 5 mg tablet 5 mg PO QHS #90 tabs 12/24/23 Unknown Rx ondansetron HCl 4 mg tablet 4 mg PO DAILY #90 tabs 12/24/23 Unknown Rx pantoprazole 40 mg tablet,delayed 40 mg PO QDAY #90 tabs 12/24/23 Unknown Rx release tamsulosin 0.4 mg capsule 0.4 mg PO QDAY #90 caps 12/24/23 Unknown Rx ciprofloxacin HCl 250 mg tablet 250 mg PO QDAY #30 tabs 01/06/24 Unknown Rx acetaminophen 650 mg 650 mg PO Q8H PRN pain #90 tabs 01/09/24 Unknown Rx tablet,extended release (Tylenol Arthritis Pain) flash glucose scanning reader #1 ea 01/09/24 Unknown Rx (FreeStyle Bianca 2 [place]) flash glucose sensor (FreeStyle #1 ea 01/09/24 Unknown Rx Bianca 2 Sensor kit) miscellaneous medical supply 1 ea miscellaneous DIRECTED #6 01/09/24 Unknown Rx ea miscellaneous medical supply 1 ea miscellaneous DIRECTED 01/09/24 Unknown Rx bowel incontinence #1 ea incontinence pad, liner, disp #80 ea 01/14/24 Unknown Rx diclofenac sodium 1 % topical gel 2 g topical Q8H PRN PRN pain 7 01/21/24 Unknown Rx (Voltaren Arthritis Pain) days #100 grams Allergy/AdvReac Type Severity Reaction Status Date / Time No Known Allergies Allergy Verified 01/21/24 11:58 Family History Father Heart disease Hypertension Hyperlipidemia Grandmother Heart disease Diabetes Mother MVA (motor vehicle accident) Brother Cancer lymphoma Surgical History S/P bilateral BKA (below knee amputation) Port-A-Cath in place S/P arteriovenous (AV) fistula creation Hx of CABG Amputation leg, bilat H/O local excision of skin lesion H/O hernia repair Social History adopted: No household members: family and other details: niece and niece's number of children: 4 current occupational status: disabled pets and animals: Yes pets and animals: cat(s) and dog(s) Smoking Status: Former smoker quit date: 07/15/18 pack-years: 70 Tobacco: How many years used: 35 Electronic Cigarette Use: not used alcohol intake: former details: 07/15/2018 substance use type: does not use, former substance user Date of last use: 07/15/2006 and crack/cocaine frequency: does not exercise do you feel safe at home: Yes (more content not included)... Normal [facility] Shoulder min 2 Viewson 01-20 Shoulder min 2 Views [facility] Imaging Services [address] [place], [place] [address] Shoulder min 2 Views MR#: [id number] Acct: [id number] Name: AGUSTO MONSALVE Rep #: [id number] : 1975 M 48 From: Mateusz angela MD PCP: Dr. Bella Oneal MD Status: PRE ER Study: Shoulder min 2 Views Date of Exam: 01/21/24 Exam# [id number] Ordering Dr: El Park DO [id number] STUDY: X-RAY - LEFT SHOULDER REASON FOR EXAM: Male, 48 years old. Shoulder pain. TECHNIQUE: 4 view(s) of the shoulder. COMPARISON: None. FINDINGS: Normal glenohumeral articulation. Normal acromioclavicular joint. Normal acromion. Normal humeral head and visualized proximal humerus. The soft tissue structures are unremarkable. Normal visualized pulmonary apex. RAD/Shoulder min 2 Views IMPRESSION: Normal x-ray examination of the shoulder. Electronically Signed: Mateusz Fay MD at 14:58 EDT , CC: Dr. Bella Oneal MD; Dr. El Park DO Leadership Program Intern: Signed Normal [facility] Internal Medicine Office Vis iton 01-08-2024 Internal Medicine Office Visit [facility] [address] [place] [address] [place] [address] OFFICE VISIT Date of Service: 01/09/24 MR#: [id number] Acct: [id number] Name: AGUSTO MONSALVE Rep #: [id number] : 1975 Provider: Dr. Bella coe MD Age/Sex: 48/M Location: [facility].IS[facility] Status: Signed Intake Vital Signs 01/09/24 13:38 Height 4 ft 11 in Weight: 214 lb 4.629 oz BMI 43.2 BP 108/62 Blood Pressure Location Lt brachial Position Sitting Respiration 14 Pulse 84 Pulse Source Monitor Temp 99.8 F H Temp Source Temporal Pulse Oximetry (%) 98 Oxygen Delivery Method room air Comment height and weight per patient Intake Visit Reasons: mobility test Pulverizing And Sifting Operator Required: No Is patient in pain?: No Allergies No Known Allergies Allergy (Unverified 01/09/24 13:31) Medications ???Medication ???Instructions ???Recorded ???Confirmed ???Type diphenhydramine HCl 25 mg capsule 25 mg PO QHS 12/17/23 01/09/24 History (Banophen) docusate sodium 100 mg capsule 100 mg PO BID 12/17/23 01/09/24 History fluticasone 250 mcg-salmeterol 50 1 ea inhalation BID 12/17/23 01/09/24 History mcg/dose blistr powdr for inhalation (Advair Diskus) fluticasone propionate 50 intranasal 12/17/23 01/09/24 History mcg/actuation nasal spray,suspension gabapentin 300 mg capsule 300 mg PO QDAY 12/17/23 01/09/24 History handicap placard #1 ea 12/17/23 01/09/24 Rx insulin glargine 100 unit/mL (3 unit subcut 12/17/23 01/09/24 History mL) subcutaneous pen (Lantus Solostar U-100 Insulin) polyethylene glycol 3350 17 g PO QDAY 12/17/23 01/09/24 History gram/dose oral powder sodium chloride 0.65 % nasal spray spray intranasal 12/17/23 01/09/24 History aerosol (Deep Sea Nasal) albuterol sulfate 90 mcg/actuation 1 puff inhalation Q6-8H PRN 12/24/23 01/09/24 Rx aerosol inhaler shortness of breath or wheezing #8.5 grams amlodipine 10 mg tablet 10 mg PO QDAY #90 tabs 12/24/23 01/09/24 Rx aspirin 81 mg tablet,delayed 81 mg PO QDAY #90 tabs 12/24/23 01/09/24 Rx release atorvastatin 40 mg tablet 40 mg PO QDAY #90 tabs 12/24/23 01/09/24 Rx cyclobenzaprine 10 mg tablet 10 mg PO QHS #90 tabs 12/24/23 01/09/24 Rx lidocaine 4 % topical patch 1 patch topical DAILY PRN pain #30 12/24/23 01/09/24 Rx (Lidocaine Pain Relief) ea magnesium oxide 400 mg (241.3 mg 400 mg PO TID #90 tabs 12/24/23 01/09/24 Rx magnesium) tablet melatonin 5 mg tablet 5 mg PO QHS #90 tabs 12/24/23 01/09/24 Rx ondansetron HCl 4 mg tablet 4 mg PO DAILY #90 tabs 12/24/23 01/09/24 Rx pantoprazole 40 mg tablet,delayed 40 mg PO QDAY #90 tabs 12/24/23 01/09/24 Rx release tamsulosin 0.4 mg capsule 0.4 mg PO QDAY #90 caps 12/24/23 01/09/24 Rx ciprofloxacin HCl 250 mg tablet 250 mg PO QDAY #30 tabs 01/06/24 Rx acetaminophen 650 mg 650 mg PO Q8H PRN pain #90 tabs 01/09/24 01/09/24 Rx tablet,extended release (Tylenol Arthritis Pain) flash glucose scanning reader #1 ea 01/09/24 01/09/24 Rx (FreeStyle Bianca 2 [place]) flash glucose sensor (FreeStyle #1 ea 01/09/24 01/09/24 Rx Bianca 2 Sensor kit) incontinence pad, liner, disp #80 ea 01/09/24 01/09/24 Rx miscellaneous medical supply 1 ea miscellaneous DIRECTED 01/09/24 01/09/24 Rx bowel incontinence #1 ea Nurse's Note: States he has been out of lantus, gabepentin and cipro. Needing scripts for tylneol, ibuprofen, bed pans, Lg inconteince briefs, wet wipes. Due to low income. [facility] Medical History GERD (gastroesophageal reflux disease) Cataracts, bilateral Hypocalcemia Hepatitis IBS (irritable bowel syndrome) Peritoneal dialysis catheter site infection CAD (coronary artery disease) Peritonitis Recurrent UTI Urinary retention Neuropathy COPD (chronic obstructive pulmonary disease) Hyperlipidemia due to type 2 diabetes mellitus Hypertension Dialysis patient Diabetes Surgical History S/P bilateral BKA (below knee amputation) Port-A-Cath in place S/P arteriovenous (AV) fistula creation Hx of CABG Amputation leg, bilat H/O local excision of skin lesion H/O hernia repair Family History Father Heart disease Hypertension Hyperlipidemia Grandmother Heart disease Diabetes Mother MVA (motor vehicle accident) Brother Cancer lymphoma Social History adopted: No household members: family and other details: niece and niece's number of children: 4 current occupational status: disabled pets and animals: Yes pets and animals: cat(s) and dog(s) Smoking Status: Former smoker quit date: 07/15/18 pack-years: (more content not included)... Normal [facility] Hepatic Function Panel Aon 0 - Albumin [Mass/Vol] 3.9 g/dL Low 4.0-4.9 [facility] Comment on above: Performed By: #### L IVP6 #### [address] [address] , Edi Irby M.D. FCAP, FASCP ALP [Catalytic activity/Vol] 285 U/L High 40-[address] [facility] Comment on above: Performed By: #### L IVP6 #### [address] [address] , Edi Irby M.D. FCAP, FASCP ALT [Catalytic activity/Vol] 31 U/L Normal 10-[address] [facility] Comment on above: Performed By: #### L IVP6 #### [address] [address] , Edi Irby M.D. FCAP, FASCP AST [Catalytic activity/Vol] 35 U/L Normal 10-[address] [facility] Comment on above: Performed By: #### L IVP6 #### [address] [address] , Edi Irby M.D. FCAP, FASCP Bilirubin [Mass/Vol] 0.4 mg/dL Normal 0.2-1.2 [facility] Comment on above: Performed By: #### L IVP6 #### [address] [address] , Edi Irby M.D. FCAP, FASCP Bilirubin Indirect 0.2 mg/dL Normal 0.0-1.1 [facility] Comment on above: Performed By: #### L IVP6 #### [facility] [address], [place] [id number] , Edi Irby M.D. FCAP, FASCP Bilirubin.indirect [Mass/Vol] 0.2 mg/dL Normal 0.0-0.[address] [facility] Comment on above: Performed By: #### L IVP6 #### [facility] [address] [place] [address] , Edi Irby M.D. FCAP, FASCP Protein [Mass/Vol] 6.8 g/dL Normal 6.4-8.3 [facility] Comment on above: Performed By: #### L IVP6 #### [facility] [address] [place] [address] , Edi Irby M.D. FCAP, FASCP Serum or plasma alanine martinez otransferase measurement (enzymatic activity/volume)Ordered By: KIM QUEVEDO on 10-03-2023 ALT [Catalytic activity/Vol] 31 U/L 10-50 [facility] Serum or plasma albumin zainab urement (mass/volume)Ordered By: KIM QUEVEDO on 10-03-2023 Albumin [Mass/Vol] 3.9 g/dL Low 4.0-4.9 [facility] Serum or plasma alkaline robert sphatase measurement (enzymatic activity/volume)Ordered By: KIM QUEVEDO on 10-03-2023 ALP [Catalytic activity/Vol] 285 U/L High 40-129 [facility] Serum or plasma aspartate am inotransferase measurement (enzymatic activity/volume)Ordered By: KIM QUEVEDO on 10-03-2023 AST [Catalytic activity/Vol] 35 U/L 10-50 [facility] Serum or plasma direct bilir ubin measurement (mass/volume)Ordered By: KIM QUEVEDO on 10-03-2023 Bilirubin.direct [Mass/Vol] 0.2 mg/dL 0.0-0.3 [facility] Serum or plasma indirect mingo irubin measurement (mass/volume)Ordered By: KIM QUEVEDO on 10-03-2023 Bilirubin.indirect [Mass/Vol] 0.2 mg/dL 0.0-1.1 [facility] Serum or plasma protein zainab urement (mass/volume)Ordered By: KIM QUEVEDO on 10-03-2023 Protein [Mass/Vol] 6.8 g/dL 6.4-8.3 [facility] Serum or plasma total biliru bin measurement (mass/volume)Ordered By: KIM QUEVEDO on 10-03-2023 Bilirubin [Mass/Vol] 0.4 mg/dL 0.2-1.2 [facility] Basic Metabolic Panelon 12-2 Anion gap [Moles/Vol] 18 mmol/L High 9-15 [facility] Comment on above: Performed By: #### L IVP6 #### [facility] [address], [place] [id number] , Maribel PalenciaAP, FASCP Calcium [Mass/Vol] 8.8 mg/dL Normal 8.6-10.0 [facility] Comment on above: Performed By: #### L IVP6 #### [facility] [address] [place] [id number] , Maribel PalenciaAP, FASCP Chloride [Moles/Vol] 93 mmol/L Low 98-107 [facility] Comment on above: Performed By: #### L IVP6 #### [facility] [address], [place] [id number] , Maribel PalenciaAP, FASCP CO2 [Moles/Vol] 24 mmol/L Normal 22-[address] [facility] Comment on above: Performed By: #### L IVP6 #### [facility] [address] [place] [id number] , Edi Irby M.D. FCAP, FASCP Creatinine [Mass/Vol] 3.52 mg/dL High 0.67-1.17 [facility] Comment on above: Performed By: #### L IVP6 #### [facility] [address] [place] [address] , Edi Irby M.D. FCAP, FASCP GFR/1.73 sq M.predicted among non-blacks MDRD (S/P/Bld) [Vol rate/Area] 19 mL/min/{1.73_m2} Normal [facility] Comment on above: Result Comment: THE GFR IS ESTIMATED USING THE MDRD STUDY EQUATION. *NOTE* IF THE RACE OF THE PATIENT WAS UNKNOWN AT THE TIME OF REGISTRATION, AND THE PATIENT IS , MULTIPLY THE EGFR RESULT PROVIDED BY 1.21. EGFR <60.0 COULD BE ABNORMAL. Performed By: #### L IVP6 #### [facility] [address] [place] [address] , Edi Irby M.D. FCAP, FASCP Glucose [Mass/Vol] 99 mg/dL Normal 70-100 [facility] Comment on above: Result Comment: INTR EPRETATION FOR FASTING BLOOD GLUCOSE: 70-100 mg/dl NORMAL GLUCOSE TOLERANCE 100-125 mg/dl IMPAIRED FASTING GLUCOSE (PRE-DIABETES) >125 mg/dl DIABETES - ON MORE THAN ONE TESTING Performed By: #### L IVP6 #### [address] [address] , Edi Irby M.D. FCAP, FASCP Potassium [Moles/Vol] 4.3 mmol/L Normal 3.6-5.0 [facility] Comment on above: Performed By: #### L IVP6 #### [facility] [address] [place] [address] , Edi Irby M.D. FCAP, FASCP Sodium [Moles/Vol] 135 mmol/L Low 136-145 [facility] Comment on above: Performed By: #### L IVP6 #### [facility] [address] [place] [address] , Edi Irby M.D. FCAP, FASCP Urea nitrogen [Mass/Vol] 41.1 mg/dL High 6.0-20.[address] [facility] Comment on above: Performed By: #### L IVP6 #### [facility] [address] [facility], [place] [id number] , Edi Irby M.D. FCAP, FASCP Basophils Auto (Bld) [#/Vol] Ordered By: KIM QUEVEDO on 07-11-2023 Basophils (Bld) [#/Vol] 0.05 10*3/uL 0.0-0.2 [facility] Basophils/100 WBC Auto (Bld) Ordered By: KIM QUEVEDO on 07-11-2023 Basophils/100 WBC (Bld) 0.5 % 0-1.0 [facility] Blood hemoglobin measurement (mass/volume)Ordered By: KIM QUEVEDO on 07-11-2023 Hemoglobin (Bld) [Mass/Vol] 8.0 g/dL Low 13.3-17.7 [facility] CBC With Differentialon 06-15 Basophils Absolute Auto 0.05 10*3/uL Normal 0.0-0.[address] [facility] Comment on above: Performed By: #### C BCD #### [facility] [address] [facility] [place] [id number] , Edi Irby M.D. FCAP, FASCP Basophils/100 WBC (Bld) 0.5 % Normal 0-1.0 [facility] Comment on above: Performed By: #### C BCD #### [facility] [address] [place] [address] , Edi Irby M.D. FCAP, FASCP Differential Type? Auto Differential Normal [facility] Comment on above: Performed By: #### C BCD #### [facility] [address] [place] [address] , Edi J. Macatol, M.D. FCAP, FASCP Eosinophils (Bld) [#/Vol] 0.17 10*3/uL Normal 0.0-0.[address] [facility] Comment on above: Performed By: #### C BCD #### [address] [id number] , Edi Irby M.D. FCAP, FASCP Eosinophils/100 WBC (Bld) 1.8 % Normal 0.0-3.[address] [facility] Comment on above: Performed By: #### C BCD #### [address] [id number] , Edi Irby M.D. FCAP, FASCP Hematocrit (Bld) [Volume fraction] 27.5 % Low 40.0-52.[address] [facility] Comment on above: Performed By: #### C BCD #### [address] [id number] , Edi Irby M.D. FCAP, FASCP Hemoglobin (Bld) [Mass/Vol] 8.0 g/dL Low 13.3-17.[address] [facility] Comment on above: Performed By: #### C BCD #### [address] [id number] , Edi Irby M.D. FCAP, FASCP Immature Gran Absolute Auto 0.06 10*3/uL Normal 0.01-0.[address] [facility] Comment on above: Performed By: #### C BCD #### [address] [id number] , Edi Irby M.D. FCAP, FASCP Immature granulocytes/100 WBC (Bld) 0.6 % Normal 0-0.[address] [facility] Comment on above: Performed By: #### C BCD #### [address] [id number] , Edi Irby M.D. FCAP, FASCP Lymphocytes (Bld) [#/Vol] 1.17 10*3/uL Low 1.5-4.[address] [facility] Comment on above: Performed By: #### C BCJak #### [address] [id number] , Edi Irby M.D. FCAP, FASCP Lymphocytes/100 WBC (Bld) 12.6 % Low 20.0-40.[address] [facility] Comment on above: Performed By: #### C ANI #### [address] [id number] , Edi Irby M.D. FCAP, FASCP MCH (RBC) [Entitic mass] 24.5 pg Low 27.0-40.[address] [facility] Comment on above: Performed By: #### C BCJak #### [address] [id number] , Edi Irby M.D. FCAP, FASCP Mean Corpusc Hgb Concentration 29.1 g/dL Low 31.0-36.[address] [facility] Comment on above: Performed By: #### C ANI #### [address] [id number] , Edi Irby M.D. FCAP, FASCP Mean Corpuscular Volume 84.1 CU uM Normal 80.0-100.0 [facility] Comment on above: Performed By: #### C BCJak #### [address] [id number] , Edi Irby M.D. FCAP, FASCP Monocytes (Bld) [#/Vol] 0.53 10*3/uL Normal 0.2-0.[address] [facility] Comment on above: Performed By: #### C MAYURID #### [address] [id number] , Edi Irby M.D. FCAP, FASCP Monocytes/100 WBC (Bld) 5.7 % Normal 4.0-10.0 [facility] Comment on above: Performed By: #### C BCD #### [address] [id number] , Edi Irby M.D. FCAP, FASCP Neutrophils Absolute Auto 7.29 10*3/uL High 2.0-7.[address] [facility] Comment on above: Performed By: #### C BCD #### [address] [id number] , Edi Irby M.D. FCAP, FASCP Neutrophils/100 WBC (Bld) 78.8 % High 54.0-62.[address] [facility] Comment on above: Performed By: #### C BCJak #### [address] [id number] , Edi Irby M.D. FCAP, FASCP Nucleated RBC (Bld) [#/Vol] 0.00 10*3/uL Normal -[address] [facility] Comment on above: Performed By: #### C BCD #### [address] [id number] , Edi Irby M.D. FCAP, FASCP Nucleated RBC's % 0.0 /100WBC Normal -0 [facility] Comment on above: Performed By: #### C BCD #### [address] [id number] , Edi Irby M.D. FCAP, FASCP Platelets (Bld) [#/Vol] 245 10*3/uL Normal 130-[address] [facility] Comment on above: Performed By: #### C BCD #### [facility] [address] [facility], [place] [id number] , Edi Irby M.D. FCAP, FASCP RBC (Bld) [#/Vol] 3.27 10*6/uL Low 4.40-5.90 [facility] Comment on above: Performed By: #### C BCD #### [facility] [address], [place] [id number] , Edi Irby M.D. FCAP, FASCP Red Cell Distribution 17.4 High 11.5-14.5 [facility] Comment on above: Performed By: #### C BCD #### [facility] [address] [facility], [place] [id number] , Edi Irby M.D. FCAP, FASCP WBC (Bld) [#/Vol] 9.3 10*3/uL Normal 3.9-10.6 [facility] Comment on above: Performed By: #### C BCD #### [address] [id number] , Edi Irby M.D. FCAP, FASCP Differential cell count meth od - BloodOrdered By: KIM QUEVEDO on 07-11-2023 Differential cell count method Nom (Bld) Auto differential [facility] Eosinophils Auto (Bld) [#/Vo l]Ordered By: KIM QUEVEDO on 07-11-2023 Eosinophils (Bld) [#/Vol] 0.17 10*3/uL 0.0-0.5 [facility] Eosinophils/100 WBC Auto (Bl d)Ordered By: KIM QUEVEDO on 07-11-2023 Eosinophils/100 WBC (Bld) 1.8 % 0.0-3.0 [facility] Erythrocyte distribution wid th Auto (RBC) [Ratio]Ordered By: KIM QUEVEDO on 07-11-2023 Erythrocyte distribution width (RBC) [Ratio] 17.4 % High 11.5-14.5 [facility] Glomerular filtration rate/1 .73 sq M.predicted [Volume Rate/Area] in Serum, Plasma orOrdered By: KIM QUEVEDO on 07-11-2023 GFR/1.73 sq M.predicted (S/P/Bld) [Vol rate/Area] 19 mL/min [facility] Comment on above: EGFR <60.0 COULD BE ABNORMAL.THE GFR IS ESTIMATED USING THE MDRD STUDY EQUATION.*NOTE* IF THE RACE OF THE PATIENT WAS UNKNOWN AT THE TIME OFREGISTRATION, AND THE PATIENT IS , MULTIPLYTHE EGFR RESULT PROVIDED BY 1.21. Hematocrit Auto (Bld) [Volum e fraction]Ordered By: KIM QUEVEDO on 07-11-2023 Hematocrit (Bld) [Volume fraction] 27.5 % Low 40.0-52.0 [facility] Immature granulocytes Auto ( Bld) [#/Vol]Ordered By: KIM QUEVEDO on 07-11-2023 Immature granulocytes (Bld) [#/Vol] 0.06 10*3/uL 0.01-0.2 [facility] Immature granulocytes/100 WB C Auto (Bld)Ordered By: KIM QUEVEDO on 07-11-2023 Immature granulocytes/100 WBC (Bld) 0.6 % 0-0.9 [facility] Lymphocytes Auto (Bld) [#/Vo l]Ordered By: KIM QUEVEDO on 07-11-2023 Lymphocytes (Bld) [#/Vol] 1.17 10*3/uL Low 1.5-4.0 [facility] Lymphocytes/100 WBC Auto (Bl d)Ordered By: KIM QUEVEDO on 07-11-2023 Lymphocytes/100 WBC (Bld) 12.6 % Low 20.0-40.0 [facility] MCH Auto (RBC) [Entitic mass ]Ordered By: KIM QUEVEDO on 07-11-2023 MCH (RBC) [Entitic mass] 24.5 pg Low 27-40 [facility] MCHC Auto (RBC) [Mass/Vol]Or dered By: KIM QUEVEDO on 07-11-2023 MCHC (RBC) [Mass/Vol] 29.1 g/dL Low 31-36 [facility] MCV Auto (RBC) [Entitic vol] Ordered By: KIM QUEVEDO on 07-11-2023 MCV (RBC) [Entitic vol] 84.1 CU uM 80.0-100.0 [facility] Monocytes Auto (Bld) [#/Vol] Ordered By: KIM QUEVEDO on 07-11-2023 Monocytes (Bld) [#/Vol] 0.53 10*3/uL 0.2-0.8 [facility] Monocytes/100 WBC Auto (Bld) Ordered By: KIM QUEVEDO on 07-11-2023 Monocytes/100 WBC (Bld) 5.7 % 4.0-10.0 [facility] Neutrophils Auto (Bld) [#/Vo l]Ordered By: KIM QUEVEDO on 07-11-2023 Neutrophils (Bld) [#/Vol] 7.29 10*3/uL High 2.0-7.0 [facility] Neutrophils/100 WBC Auto (Bl d)Ordered By: KIM QUEVEDO on 07-11-2023 Neutrophils/100 WBC (Bld) 78.8 % High 54.0-62.0 [facility] Nucleated RBC Auto (Bld) [#/ Vol]Ordered By: KIM QUEVEDO on 07-11-2023 Nucleated RBC (Bld) [#/Vol] 0.00 10*3/uL <0 [facility] Nucleated RBC/100 WBC Auto ( Bld) [Ratio]Ordered By: KIM QUEVEDO on 07-11-2023 Nucleated RBC/100 WBC (Bld) [Ratio] 0.0 /100WBC <0 [facility] Platelets Auto (Bld) [#/Vol] Ordered By: KIM QUEVEDO on 07-11-2023 Platelets (Bld) [#/Vol] 245 10*3/uL 130-440 [facility] RBC Auto (Bld) [#/Vol]Ordere d By: KIM QUEVEDO on 07-11-2023 RBC (Bld) [#/Vol] 3.27 10*6/uL Low 4.40-5.[address] [facility] Serum or plasma anion gapOrd ered By: KIM QUEVEDO on 07-11-2023 Anion gap [Moles/Vol] 18 mmol/L High 9-15 [facility] Serum or plasma calcium zainab urement (mass/volume)Ordered By: KIM QUEVEDO on 07-11-2023 Calcium [Mass/Vol] 8.8 mg/dL 8.6-10.0 [facility] Serum or plasma carbon dioxi de, total measurement (moles/volume)Ordered By: KIM QUEVEDO on 07-11-2023 CO2 [Moles/Vol] 24 mmol/L - [facility] Serum or plasma chloride eduardo surement (moles/volume)Ordered By: KIM QUEVEDO on 07-11-2023 Chloride [Moles/Vol] 93 mmol/L Low 98-107 [facility] Serum or plasma creatinine m easurement (mass/volume)Ordered By: KIM QUEVEDO on 07-11-2023 Creatinine [Mass/Vol] 3.52 mg/dL High 0.67-1.17 [facility] Serum or plasma glucose zainab urement (mass/volume)Ordered By: KIM QUEVEDO on 07-11-2023 Glucose [Mass/Vol] 99 mg/dL 70-100 [facility] Comment on above: INTREPRETATION FOR F ASTING BLOOD GLUCOSE: 70-100 mg/dl NORMAL GLUCOSE [id number] mg/dl IMPAIRED FASTING GLUCOSE (PRE-DIABETES)>125 mg/dl DIABETES - ON MORE THAN ONE TESTING Serum or plasma potassium me asurement (moles/volume)Ordered By: KIM QUEVEDO on 07-11-2023 Potassium [Moles/Vol] 4.3 mmol/L 3.6-5.0 [facility] Serum or plasma sodium measu rement (moles/volume)Ordered By: KIM QUEVEDO on 07-11-2023 Sodium [Moles/Vol] 135 mmol/L Low 136-145 [facility] Serum or plasma urea nitroge n measurement (mass/volume)Ordered By: KIM QUEVEDO on 07-11-2023 Urea nitrogen [Mass/Vol] 41.1 mg/dL High 6.0-20.0 [facility] WBC Auto (Bld) [#/Vol]Ordere d By: KIM QUEVEDO on 07-11-2023 WBC (Bld) [#/Vol] 9.3 10*3/uL 3.9-10.6 [facility] Basic Metabolic Panelon 12 Anion gap [Moles/Vol] 17 mmol/L High 9-15 [facility] Comment on above: Performed By: #### Garrett HEM7, CP1 #### [address] [id number] , Edi Irby M.D. FCAP, FASCP Calcium [Mass/Vol] 8.7 mg/dL Normal 8.6-10.0 [facility] Comment on above: Performed By: #### Garrett HEMHallie, CP1 #### [address] [id number] , Edi Irby M.D. FCAP, FASCP Chloride [Moles/Vol] 93 mmol/L Low 98-107 [facility] Comment on above: Performed By: #### Garrett HEM7, CP1 #### [address] [id number] , Maribel PalenciaAP, FASCP CO2 [Moles/Vol] 21 mmol/L Low 22-[address] [facility] Comment on above: Performed By: #### Garrett HEMHallie, CP1 #### [address] [id number] , Edi Irby M.D. FCAP, FASCP Creatinine [Mass/Vol] 3.79 mg/dL High 0.67-1.17 [facility] Comment on above: Performed By: #### Garrett HEM7, CP1 #### [address] [id number] , Edi Irby M.D. FCAP, FASCP GFR/1.73 sq M.predicted among non-blacks MDRD (S/P/Bld) [Vol rate/Area] 17 mL/min/{1.73_m2} Normal [facility] Comment on above: Result Comment: THE GFR IS ESTIMATED USING THE MDRD STUDY EQUATION. *NOTE* IF THE RACE OF THE PATIENT WAS UNKNOWN AT THE TIME OF REGISTRATION, AND THE PATIENT IS , MULTIPLY THE EGFR RESULT PROVIDED BY 1.21. EGFR <60.0 COULD BE ABNORMAL. Performed By: #### C HEM7, CP1 #### [address] [address] , Edi Irby M.D. FCAP, FASCP Glucose [Mass/Vol] 81 mg/dL Normal 70-100 [facility] Comment on above: Result Comment: INTR EPRETATION FOR FASTING BLOOD GLUCOSE: 70-100 mg/dl NORMAL GLUCOSE TOLERANCE 100-125 mg/dl IMPAIRED FASTING GLUCOSE (PRE-DIABETES) >125 mg/dl DIABETES - ON MORE THAN ONE TESTING Performed By: #### C HEM7, CP1 #### [address] [address] , Edi Irby M.D. FCAP, FASCP Potassium [Moles/Vol] 6.6 mmol/L Critically high 3.6-5.[address] [facility] Comment on above: Result Comment: HEMO LYSIS PRESENT. INTERPRET RESULT WITH CAUTION. Alert Value called to DENZEL ADKINS, DATE: 2023-07-05 12:50:46 BY:FRED Read Back? YES ALERT VALUE ATTENTION NURSING ALERT VALUE NOTIFY PHYSICIAN WITHIN 30 MINUTES OF RECEIVING THIS REPORT Performed By: #### C HEM7, CP1 #### [address] [address] , Edi Irby M.D. FCAP, FASCP Sodium [Moles/Vol] 131 mmol/L Low 136-145 [facility] Comment on above: Performed By: #### C HEM7, CP1 #### [address] [address] , Edi Irby M.D. FCAP, FASCP Urea nitrogen [Mass/Vol] 49.9 mg/dL High 6.0-20.[address] [facility] Comment on above: Performed By: #### C HEM7, CP1 #### [facility] [address] [place] [address] , Edi Irby M.D. FCAP, FASCP Basophils Auto (Bld) [#/Vol] Ordered By: KIM QUEVEDO on 07-05-2023 Basophils (Bld) [#/Vol] 0.05 10*3/uL 0.0-0.2 [facility] Basophils/100 WBC Auto (Bld) Ordered By: KIM QUEVEDO on 07-05-2023 Basophils/100 WBC (Bld) 0.5 % 0-1.0 [facility] Blood hemoglobin measurement (mass/volume)Ordered By: KIM QUEVEDO on 07-05-2023 Hemoglobin (Bld) [Mass/Vol] 8.5 g/dL Low 13.3-17.7 [facility] CBC With Differentialon 06-15 Differential Type? Auto Differential Normal [facility] Comment on above: Performed By: #### C BCD #### [facility] [address] [place] [address] , Edi Irby M.D. FCAP, FASCP Differential cell count meth od - BloodOrdered By: KIM QUEVEDO on 07-05-2023 Differential cell count method Nom (Bld) Auto differential [facility] Eosinophils Auto (Bld) [#/Vo l]Ordered By: KIM QUEVEDO on 07-05-2023 Eosinophils (Bld) [#/Vol] 0.06 10*3/uL 0.0-0.5 [facility] Eosinophils/100 WBC Auto (Bl d)Ordered By: KIM QUEVEDO on 07-05-2023 Eosinophils/100 WBC (Bld) 0.6 % 0.0-3.0 [facility] Erythrocyte distribution wid th Auto (RBC) [Ratio]Ordered By: KIM QUEVEDO on 07-05-2023 Erythrocyte distribution width (RBC) [Ratio] 17.9 % High 11.5-14.5 [facility] Glomerular filtration rate/1 .73 sq M.predicted [Volume Rate/Area] in Serum, Plasma orOrdered By: KIM QUEVEDO on 07-05-2023 GFR/1.73 sq M.predicted (S/P/Bld) [Vol rate/Area] 17 mL/min [facility] Comment on above: EGFR <60.0 COULD BE ABNORMAL.THE GFR IS ESTIMATED USING THE MDRD STUDY EQUATION.*NOTE* IF THE RACE OF THE PATIENT WAS UNKNOWN AT THE TIME OFREGISTRATION, AND THE PATIENT IS , MULTIPLYTHE EGFR RESULT PROVIDED BY 1.21. Hematocrit Auto (Bld) [Volum e fraction]Ordered By: KIM QUEVEDO on 07-05-2023 Hematocrit (Bld) [Volume fraction] 30.2 % Low 40.0-52.0 [facility] Immature granulocytes Auto ( Bld) [#/Vol]Ordered By: KIM QUEVEDO on 07-05-2023 Immature granulocytes (Bld) [#/Vol] 0.06 10*3/uL 0.01-0.2 [facility] Immature granulocytes/100 WB C Auto (Bld)Ordered By: KIM QUEVEDO on 07-05-2023 Immature granulocytes/100 WBC (Bld) 0.6 % 0-0.9 [facility] Lymphocytes Auto (Bld) [#/Vo l]Ordered By: KIM QUEVEDO on 07-05-2023 Lymphocytes (Bld) [#/Vol] 0.54 10*3/uL Low 1.5-4.0 [facility] Lymphocytes/100 WBC Auto (Bl d)Ordered By: KIM QUEVEDO on 07-05-2023 Lymphocytes/100 WBC (Bld) 5.1 % Low 20.0-40.0 [facility] MCH Auto (RBC) [Entitic mass ]Ordered By: KIM QUEVEDO on 07-05-2023 MCH (RBC) [Entitic mass] 24.9 pg Low 27-40 [facility] MCHC Auto (RBC) [Mass/Vol]Or dered By: KIM QUEVEDO on 07-05-2023 MCHC (RBC) [Mass/Vol] 28.1 g/dL Low 31-36 [facility] MCV Auto (RBC) [Entitic vol] Ordered By: KIM QUEVEDO on 07-05-2023 MCV (RBC) [Entitic vol] 88.6 CU uM 80.0-100.0 M [facility] Monocytes Auto (Bld) [#/Vol] Ordered By: KIM QUEVEDO on 07-05-2023 Monocytes (Bld) [#/Vol] 0.38 10*3/uL 0.2-0.8 [facility] Monocytes/100 WBC Auto (Bld) Ordered By: KIM QUEVEDO on 07-05-2023 Monocytes/100 WBC (Bld) 3.6 % Low 4.0-10.0 [facility] Neutrophils Auto (Bld) [#/Vo l]Ordered By: KIM QUEVEDO on 07-05-2023 Neutrophils (Bld) [#/Vol] 9.60 10*3/uL High 2.0-7.0 [facility] Neutrophils/100 WBC Auto (Bl d)Ordered By: KIM QUEVEDO on 07-05-2023 Neutrophils/100 WBC (Bld) 89.6 % High 54.0-62.0 [facility] Nucleated RBC Auto (Bld) [#/ Vol]Ordered By: KIM QUEVEDO on 07-05-2023 Nucleated RBC (Bld) [#/Vol] 0.02 10*3/uL High <0 [facility] Nucleated RBC/100 WBC Auto ( Bld) [Ratio]Ordered By: KIM QUEVEDO on 07-05-2023 Nucleated RBC/100 WBC (Bld) [Ratio] 0.2 /100WBC High <0 [facility] Platelets Auto (Bld) [#/Vol] Ordered By: KIM QUEVEDO on 07-05-2023 Platelets (Bld) [#/Vol] 289 10*3/uL 130-440 [facility] RBC Auto (Bld) [#/Vol]Ordere d By: KIM QUEVEDO on 07-05-2023 RBC (Bld) [#/Vol] 3.41 10*6/uL Low 4.40-5.[address] [facility] Serum or plasma anion gapOrd ered By: KIM QUEVEDO on 07-05-2023 Anion gap [Moles/Vol] 17 mmol/L High 9-15 [facility] Serum or plasma calcium zainab urement (mass/volume)Ordered By: KIM QUEVEDO on 07-05-2023 Calcium [Mass/Vol] 8.7 mg/dL 8.6-10.0 [facility] Serum or plasma carbon dioxi de, total measurement (moles/volume)Ordered By: KIM QUEVEDO on 07-05-2023 CO2 [Moles/Vol] 21 mmol/L Low - [facility] Serum or plasma chloride eduardo surement (moles/volume)Ordered By: KIM QUEVEDO on 07-05-2023 Chloride [Moles/Vol] 93 mmol/L Low 98-107 [facility] Serum or plasma creatinine m easurement (mass/volume)Ordered By: KIM QUEVEDO on 07-05-2023 Creatinine [Mass/Vol] 3.79 mg/dL High 0.67-1.17 [facility] Serum or plasma glucose zainab urement (mass/volume)Ordered By: KIM QUEVEDO on 07-05-2023 Glucose [Mass/Vol] 81 mg/dL 70-100 [facility] Comment on above: INTREPRETATION FOR F ASTING BLOOD GLUCOSE: 70-100 mg/dl NORMAL GLUCOSE [id number] mg/dl IMPAIRED FASTING GLUCOSE (PRE-DIABETES)>125 mg/dl DIABETES - ON MORE THAN ONE TESTING Serum or plasma potassium me asurement (moles/volume)Ordered By: KIM QUEVEDO on 07-05-2023 Potassium [Moles/Vol] 6.6 mmol/L High 3.6-5.0 [facility] Comment on above: HEMOLYSIS PRESENT. I NTERPRET RESULT WITH CAUTION. Alert Value called to DENZEL ADKINS, DATE: 2023-07-05 12:50:46 BY:FRED Read Back? YES ALERT VALUE ATTENTION NURSING ALERT VALUE NOTIFY PHYSICIAN WITHIN 30 MINUTES OF RECEIVING THIS REPORT Serum or plasma sodium measu rement (moles/volume)Ordered By: KIM QUEVEDO on 07-05-2023 Sodium [Moles/Vol] 131 mmol/L Low 136-145 [facility] Serum or plasma urea nitroge n measurement (mass/volume)Ordered By: KIM QUEVEDO on 07-05-2023 Urea nitrogen [Mass/Vol] 49.9 mg/dL High 6.0-20.0 [facility] WBC Auto (Bld) [#/Vol]Ordere d By: KIM QUEVEDO on 07-05-2023 WBC (Bld) [#/Vol] 10.7 10*3/uL High 3.9-10.[address] [facility] Serum or plasma uric acid me asurement (mass/volume)Ordered By: KIM QUEVEDO on 05-29-2023 Urate [Mass/Vol] 3.3 mg/dL Low 3.4-7.0 [facility] Uric Acid Bloodon 05-29-2023 Uric Acid Blood 3.3 mg/dL Low 3.4-7.[address] [facility] Comment on above: Performed By: #### L IVP6 #### [facility] [address] [place] [address] , Edi Irby M.D. FCAP, FASCP Alanine aminotransferase [En zymatic activity/volume] in Serum or PlasmaOrdered By: KIM QUEVEDO on 01-01-2023 ALT [Catalytic activity/Vol] 45 U/L 10-50 [facility] Blood hemoglobin measurement (mass/volume)Ordered By: KIM QUEVEDO on 01-01-2023 Hemoglobin (Bld) [Mass/Vol] 8.1 g/dL Low 13.3-17.7 [facility] Hematocrit Auto (Bld) [Volum e fraction]Ordered By: KIM QUEVEDO on 01-01-2023 Hematocrit (Bld) [Volume fraction] 27.7 % Low 40.0-52.0 [facility] Hemoglobin Hematocriton 12-14 Hematocrit (Bld) [Volume fraction] 27.7 % Low 40.0-52.[address] [facility] Comment on above: Performed By: #### C BCD #### [facility] [address] [place] [address] , Edi Irby M.D. FCAP, FASCP Hemoglobin (Bld) [Mass/Vol] 8.1 g/dL Low 13.3-17.[address] [facility] Comment on above: Performed By: #### C BCD #### [address] [id number] , Edi Irby M.D. FCAP, FASCP Hepatic Function Panel Aon 0 - Albumin [Mass/Vol] 3.6 g/dL Low 4.0-4.9 [facility] Comment on above: Performed By: #### L IVP6 #### [address] [id number] , Edi Irby M.D. FCAP, FASCP ALP [Catalytic activity/Vol] 380 U/L High 40-[address] [facility] Comment on above: Performed By: #### L IVP6 #### [address] [id number] , Maribel PalenciaAP, FASCP ALT [Catalytic activity/Vol] 45 U/L Normal 10-[address] [facility] Comment on above: Performed By: #### L IVP6 #### [address] [address] , Edi Irby M.D. FCAP, FASCP AST [Catalytic activity/Vol] 27 U/L Normal 10-[address] [facility] Comment on above: Performed By: #### L IVP6 #### [address] [address] , Edi Irby M.D. FCAP, FASCP Bilirubin [Mass/Vol] 0.5 mg/dL Normal 0.2-1.2 [facility] Comment on above: Performed By: #### L IVP6 #### [address] [address] , Edi Irby M.D. FCAP, FASCP Bilirubin Indirect 0.2 MG/DL Normal 0.0-1.1 [facility] Comment on above: Performed By: #### L IVP6 #### [facility] [address], [place] [id number] , Edi Irby M.D. FCAP, FASCP Bilirubin.indirect [Mass/Vol] 0.3 mg/dL Normal 0.0-0.[address] [facility] Comment on above: Performed By: #### L IVP6 #### [facility] [address], [place] [id number] , Edi Irby M.D. FCAP, FASCP Protein [Mass/Vol] 6.2 g/dL Low 6.4-8.3 [facility] Comment on above: Performed By: #### L IVP6 #### [facility] [address], [place] [id number] , Edi Irby M.D. FCAP, FASCP Serum or plasma albumin zainab urement (mass/volume)Ordered By: KIM QUEVEDO on 01-01-2023 Albumin [Mass/Vol] 3.6 g/dL Low 4.0-4.9 [facility] Serum or plasma alkaline robert sphatase measurement (enzymatic activity/volume)Ordered By: KIM QUEVEDO on 01-01-2023 ALP [Catalytic activity/Vol] 380 U/L High 40-129 [facility] Serum or plasma aspartate am inotransferase measurement (enzymatic activity/volume)Ordered By: KIM QUEVEDO on 01-01-2023 AST [Catalytic activity/Vol] 27 U/L 10-50 [facility] Serum or plasma direct bilir ubin measurement (mass/volume)Ordered By: KIM QUEVEDO on 01-01-2023 Bilirubin.direct [Mass/Vol] 0.3 mg/dL 0.0-0.3 [facility] Serum or plasma indirect mingo irubin measurement (mass/volume)Ordered By: KIM QUEVEDO on 01-01-2023 Bilirubin.indirect [Mass/Vol] 0.2 mg/dL 0.0-1.1 [facility] Serum or plasma protein zainab urement (mass/volume)Ordered By: KIM QUEVEDO on 01-01-2023 Protein [Mass/Vol] 6.2 g/dL Low 6.4-8.3 [facility] Serum total bilirubin measur ement (mass/volume)Ordered By: KIM QUEVEDO on 01-01-2023 Bilirubin [Mass/Vol] 0.5 mg/dL 0.2-1.2 [facility] Anisocytosis LM Ql (Bld)Orde red By: KIM QUEVEDO on 12-28-2022 Anisocytosis Ql (Bld) 1+ Sep [facility] Basic Metabolic Panelon 12-13 Anion gap [Moles/Vol] 17 mmol/L High 9-15 [facility] Comment on above: Performed By: #### C BCD #### [facility] [address], [place] [id number] , Edi Irby M.D. FCAP, FASCP Calcium [Mass/Vol] 8.6 mg/dL Normal 8.6-10.0 [facility] Comment on above: Performed By: #### C BCD #### [facility] [address] [facility] [place] [id number] , Edi Irby M.D. FCAP, FASCP Chloride [Moles/Vol] 90 mmol/L Low 98-107 [facility] Comment on above: Performed By: #### C BCD #### [facility] [address] [facility], [place] [id number] , Edi Irby M.D. FCAP, FASCP CO2 [Moles/Vol] 24 mmol/L Normal 22-[address] [facility] Comment on above: Performed By: #### C BCD #### [facility] [address] [facility] [place] [id number] , Edi Irby M.D. FCAP, FASCP Creatinine [Mass/Vol] 3.44 mg/dL High 0.67-1.17 [facility] Comment on above: Performed By: #### C BCD #### [facility] [address] [place] [address] , Edi Irby M.D. FCAP, FASCP GFR/1.73 sq M.predicted among non-blacks MDRD (S/P/Bld) [Vol rate/Area] 19 mL/min/{1.73_m2} Normal [facility] Comment on above: Result Comment: THE GFR IS ESTIMATED USING THE MDRD STUDY EQUATION. *NOTE* IF THE RACE OF THE PATIENT WAS UNKNOWN AT THE TIME OF REGISTRATION, AND THE PATIENT IS , MULTIPLY THE EGFR RESULT PROVIDED BY 1.21. EGFR <60.0 COULD BE ABNORMAL. Performed By: #### C BCD #### [facility] [address] [place] [address] , Edi Irby M.D. FCAP, FASCP Glucose [Mass/Vol] 59 mg/dL Low 70-100 [facility] Comment on above: Result Comment: INTR EPRETATION FOR FASTING BLOOD GLUCOSE: 70-100 mg/dl NORMAL GLUCOSE TOLERANCE 100-125 mg/dl IMPAIRED FASTING GLUCOSE (PRE-DIABETES) >125 mg/dl DIABETES - ON MORE THAN ONE TESTING Performed By: #### C BCD #### [facility] [address] [place] [address] , Edi Irby M.D. FCAP, FASCP Potassium [Moles/Vol] 5.9 mmol/L High 3.6-5.0 [facility] Comment on above: Result Comment: HEMO LYSIS PRESENT. INTERPRET RESULT WITH CAUTION. Performed By: #### C BCD #### [facility] [address] [place] [address] , Edi Irby M.D. FCAP, FASCP Sodium [Moles/Vol] 131 mmol/L Low 136-145 [facility] Comment on above: Performed By: #### C BCD #### [facility] [address] [place] [address] , Edi Irby M.D. FCAP, FASCP Urea nitrogen [Mass/Vol] 43.2 mg/dL High 6.0-20.[address] [facility] Comment on above: Performed By: #### C BCD #### [facility] [address] [place] [address] , Edi Irby M.D. FCAP, FASCP Basophils Auto (Bld) [#/Vol] Ordered By: KIM QUEVEDO on 12-28-2022 Basophils (Bld) [#/Vol] 0.06 10:3/uL 0.0-0.2 [facility] Basophils/100 WBC Auto (Bld) Ordered By: KIM QUEVEDO on 12-28-2022 Basophils/100 WBC (Bld) 0.6 % 0-1.0 [facility] Blood hemoglobin measurement (mass/volume)Ordered By: KIM QUEVEDO on 12-28-2022 Hemoglobin (Bld) [Mass/Vol] 7.8 g/dL Low 13.3-17.7 [facility] Blood poikilocytosis detecti on by light microscopyOrdered By: KIM QUEVEDO on 12-28-2022 Poikilocytosis LM Ql (Bld) 1+ [facility] CBC With Differentialon 12-13 Basophils Absolute Auto 0.06 10:3/uL Normal 0.0-0.[address] [facility] Comment on above: Performed By: #### L IVP6 #### [facility] [address] [place] [address] , Edi Irby M.D. FCAP, FASCP Basophils/100 WBC (Bld) 0.6 % Normal 0-1.0 [facility] Comment on above: Performed By: #### L IVP6 #### [address] [id number] , Edi Irby M.D. FCAP, FASCP Eosinophils Absolute Auto 0.08 10:3/uL Normal 0.0-0.[address] [facility] Comment on above: Performed By: #### L IVP6 #### [address] [id number] , Edi Irby M.D. FCAP, FASCP Eosinophils/100 WBC (Bld) 0.8 % Normal 0.0-3.[address] [facility] Comment on above: Performed By: #### L IVP6 #### [address] [id number] , Edi Irby M.D. FCAP, FASCP Immature Gran Absolute Auto 0.06 10:3/uL Normal 0.01-0.[address] [facility] Comment on above: Performed By: #### L IVP6 #### [address] [id number] , Edi Irby M.D. FCAP, FASCP Immature granulocytes/100 WBC (Bld) 0.6 % Normal 0-0.[address] [facility] Comment on above: Performed By: #### L IVP6 #### [address] [id number] , Edi Irby M.D. FCAP, FASCP Lymphocytes Absolute Auto 1.34 10:3/uL Low 1.5-4.[address] [facility] Comment on above: Performed By: #### L IVP6 #### [address] [id number] , Edi Irby M.D. FCAP, FASCP Lymphocytes/100 WBC (Bld) 12.7 % Low 20.0-40.[address] [facility] Comment on above: Performed By: #### L IVP6 #### [address], [place] [id number] , Edi Irby M.D. FCAP, FASCP Monocytes Absolute Auto 0.73 10:3/uL Normal 0.2-0.[address] [facility] Comment on above: Performed By: #### L IVP6 #### [address] [id number] , Edi Irby M.D. FCAP, FASCP Monocytes/100 WBC (Bld) 6.9 % Normal 4.0-10.0 [facility] Comment on above: Performed By: #### L IVP6 #### [address] [id number] , Edi Irby M.D. FCAP, FASCP Neutrophils Absolute Auto 8.32 10:3/uL High 2.0-7.[address] [facility] Comment on above: Performed By: #### L IVP6 #### [address] [id number] , Edi Irby M.D. FCFABIAN, FASCP Neutrophils/100 WBC (Bld) 78.4 % High 54.0-62.[address] [facility] Comment on above: Performed By: #### L IVP6 #### [address] [id number] , Edi Irby M.D. FCAP, FASCP Differential cell count meth od - BloodOrdered By: KIM QUEVEDO on 12-28-2022 Differential cell count method Nom (Bld) Auto differential [facility] Eosinophils Auto (Bld) [#/Vo l]Ordered By: KIM QUEVEDO on 12-28-2022 Eosinophils (Bld) [#/Vol] 0.08 10:3/uL 0.0-0.5 [facility] Eosinophils/100 WBC Auto (Bl d)Ordered By: KIM QUEVEDO on 12-28-2022 Eosinophils/100 WBC (Bld) 0.8 % 0.0-3.0 [facility] Erythrocyte distribution wid th Auto (RBC) [Ratio]Ordered By: KIM QUEVEDO on 12-28-2022 Erythrocyte distribution width (RBC) [Ratio] 17.7 % High 11.5-14.5 [facility] Glomerular filtration rate/1 .73 sq M.predicted [Volume Rate/Area] in Serum, Plasma orOrdered By: KIM QUEVEDO on 12-28-2022 GFR/1.73 sq M.predicted (S/P/Bld) [Vol rate/Area] 19 mL/min [facility] Comment on above: EGFR <60.0 COULD BE ABNORMAL.THE GFR IS ESTIMATED USING THE MDRD STUDY EQUATION.*NOTE* IF THE RACE OF THE PATIENT WAS UNKNOWN AT THE TIME OFREGISTRATION, AND THE PATIENT IS , MULTIPLYTHE EGFR RESULT PROVIDED BY 1.21. Hematocrit Auto (Bld) [Volum e fraction]Ordered By: KIM QUEVEDO on 12-28-2022 Hematocrit (Bld) [Volume fraction] 27.2 % Low 40.0-52.0 [facility] Hypochromia LM Ql (Bld)Order ed By: KIM QUEVEDO on 12-28-2022 Hypochromia Ql (Bld) 2+ [facility] Immature granulocytes Auto ( Bld) [#/Vol]Ordered By: KIM QUEVEDO on 12-28-2022 Immature granulocytes (Bld) [#/Vol] 0.06 10:3/uL 0.01-0.2 [facility] Immature granulocytes/100 WB C Auto (Bld)Ordered By: KIM QUEVEDO on 12-28-2022 Immature granulocytes/100 WBC (Bld) 0.6 % 0-0.9 [facility] Lymphocytes Auto (Bld) [#/Vo l]Ordered By: KIM QUEVEDO on 12-28-2022 Lymphocytes (Bld) [#/Vol] 1.34 10:3/uL Low 1.5-4.0 [facility] Lymphocytes/100 WBC Auto (Bl d)Ordered By: KIM QUEVEDO on 12-28-2022 Lymphocytes/100 WBC (Bld) 12.7 % Low 20.0-40.0 [facility] MCH Auto (RBC) [Entitic mass ]Ordered By: KIM QUEVEDO on 12-28-2022 MCH (RBC) [Entitic mass] 23.5 pg Low 27-40 [facility] MCHC Auto (RBC) [Mass/Vol]Or dered By: KIM QUEVEDO on 12-28-2022 MCHC (RBC) [Mass/Vol] 28.7 g/dL Low 31-36 [facility] MCV Auto (RBC) [Entitic vol] Ordered By: KIM QUEVEDO on 12-28-2022 MCV (RBC) [Entitic vol] 81.9 CU uM 80.0-100.0 [facility] Monocytes Auto (Bld) [#/Vol] Ordered By: KIM QUEVEDO on 12-28-2022 Monocytes (Bld) [#/Vol] 0.73 10:3/uL 0.2-0.8 [facility] Monocytes/100 WBC Auto (Bld) Ordered By: KIM QUEVEDO on 12-28-2022 Monocytes/100 WBC (Bld) 6.9 % 4.0-10.0 [facility] Neutrophils Auto (Bld) [#/Vo l]Ordered By: KIM QUEVEDO on 12-28-2022 Neutrophils (Bld) [#/Vol] 8.32 10:3/uL High 2.0-7.0 [facility] Neutrophils/100 WBC Auto (Bl d)Ordered By: KIM QUEVEDO on 12-28-2022 Neutrophils/100 WBC (Bld) 78.4 % High 54.0-62.0 [facility] Nucleated RBC Auto (Bld) [#/ Vol]Ordered By: KIM QUEVEDO on 12-28-2022 Nucleated RBC (Bld) [#/Vol] 0.00 10:3/uL <0 [facility] Nucleated RBC/100 WBC Auto ( Bld) [Ratio]Ordered By: KIM QUEVEDO on 12-28-2022 Nucleated RBC/100 WBC (Bld) [Ratio] 0.0 /100WBC <0 [facility] Platelets Auto (Bld) [#/Vol] Ordered By: KIM QUEVEDO on 12-28-2022 Platelets (Bld) [#/Vol] 311 10:3/uL 130-440 [facility] RBC Auto (Bld) [#/Vol]Ordere d By: KIM QUEVEDO on 12-28-2022 RBC (Bld) [#/Vol] 3.32 10:6/uL Low 4.40-5.[address] [facility] Serum or plasma anion gapOrd ered By: KIM QUEVEDO on 12-28-2022 Anion gap [Moles/Vol] 17 mmol/L High 9-15 [facility] Serum or plasma calcium zainab urement (mass/volume)Ordered By: KIM QUEVEDO on 12-28-2022 Calcium [Mass/Vol] 8.6 mg/dL 8.6-10.0 [facility] Serum or plasma carbon dioxi de, total measurement (moles/volume)Ordered By: KIM QUEVEDO on 12-28-2022 CO2 [Moles/Vol] 24 mmol/L 22-29 [facility] Serum or plasma chloride eduardo surement (moles/volume)Ordered By: KIM QUEVEDO on 12-28-2022 Chloride [Moles/Vol] 90 mmol/L Low 98-107 [facility] Serum or plasma creatinine m easurement (mass/volume)Ordered By: KIM QUEVEDO on 12-28-2022 Creatinine [Mass/Vol] 3.44 mg/dL High 0.67-1.17 [facility] Serum or plasma glucose zainab urement (mass/volume)Ordered By: KIM QUEVEDO on 12-28-2022 Glucose [Mass/Vol] 59 mg/dL Low 70-100 [facility] Comment on above: INTREPRETATION FOR F ASTING BLOOD GLUCOSE: 70-100 mg/dl NORMAL GLUCOSE [id number] mg/dl IMPAIRED FASTING GLUCOSE (PRE-DIABETES)>125 mg/dl DIABETES - ON MORE THAN ONE TESTING Serum or plasma potassium me asurement (moles/volume)Ordered By: KIM QUEVEDO on 12-28-2022 Potassium [Moles/Vol] 5.9 mmol/L High 3.6-5.0 [facility] Comment on above: HEMOLYSIS PRESENT. I NTERPRET RESULT WITH CAUTION. Serum or plasma sodium measu rement (moles/volume)Ordered By: KIM QUEVEDO on 12-28-2022 Sodium [Moles/Vol] 131 mmol/L Low 136-145 [facility] Serum or plasma urea nitroge n measurement (mass/volume)Ordered By: KIM QUEVEDO on 12-28-2022 Urea nitrogen [Mass/Vol] 43.2 mg/dL High 6.0-20.0 [facility] WBC Auto (Bld) [#/Vol]Ordere d By: KIM QUEVEDO on 12-28-2022 WBC (Bld) [#/Vol] 10.6 10:3/uL 3.9-10.[address] [facility] Basic Metabolic Panelon Anion gap [Moles/Vol] 14 mmol/L Normal 9-15 [facility] Comment on above: Performed By: #### L IVP6 #### [facility] [address], [place] [id number] , Maribel PalenciaAP, FASCP Calcium [Mass/Vol] 8.7 mg/dL Normal 8.6-10.0 [facility] Comment on above: Performed By: #### L IVP6 #### [facility] [address], [place] [id number] , Maribel PalenciaAP, FASCP Chloride [Moles/Vol] 93 mmol/L Low 98-107 [facility] Comment on above: Performed By: #### L IVP6 #### [facility] [address] [facility] [place] [id number] , Maribel PalenciaAP, FASCP CO2 [Moles/Vol] 26 mmol/L Normal 22-[address] [facility] Comment on above: Performed By: #### L IVP6 #### [facility] [address], [place] [id number] , Edi Irby M.D. FCAP, FASCP Creatinine [Mass/Vol] 4.01 mg/dL High 0.67-1.17 [facility] Comment on above: Performed By: #### L IVP6 #### [facility] [address] [place] [address] , Edi Irby M.D. FCAP, FASCP GFR/1.73 sq M.predicted among non-blacks MDRD (S/P/Bld) [Vol rate/Area] 16 mL/min/{1.73_m2} Normal [facility] Comment on above: Result Comment: THE GFR IS ESTIMATED USING THE MDRD STUDY EQUATION. *NOTE* IF THE RACE OF THE PATIENT WAS UNKNOWN AT THE TIME OF REGISTRATION, AND THE PATIENT IS , MULTIPLY THE EGFR RESULT PROVIDED BY 1.21. EGFR <60.0 COULD BE ABNORMAL. Performed By: #### L IVP6 #### [address] [address] , Edi Irby M.D. FCAP, FASCP Glucose [Mass/Vol] 78 mg/dL Normal 70-100 [facility] Comment on above: Result Comment: INTR EPRETATION FOR FASTING BLOOD GLUCOSE: 70-100 mg/dl NORMAL GLUCOSE TOLERANCE 100-125 mg/dl IMPAIRED FASTING GLUCOSE (PRE-DIABETES) >125 mg/dl DIABETES - ON MORE THAN ONE TESTING Performed By: #### L IVP6 #### [address] [address] , Edi Irby M.D. FCAP, FASCP Potassium [Moles/Vol] 6.1 mmol/L High 3.6-5.0 [facility] Comment on above: Performed By: #### L IVP6 #### [facility] [address] [place] [address] , Edi Irby M.D. FCAP, FASCP Sodium [Moles/Vol] 133 mmol/L Low 136-145 [facility] Comment on above: Performed By: #### L IVP6 #### [address] [address] , Edi Irby M.D. FCAP, FASCP Urea nitrogen [Mass/Vol] 42.1 mg/dL High 6.0-20.[address] [facility] Comment on above: Performed By: #### L IVP6 #### [address] [address] , Edi Irby M.D. FCAP, FASCP Blood hemoglobin measurement (mass/volume)Ordered By: KIM QUEVEDO on 12-21-2022 Hemoglobin (Bld) [Mass/Vol] 8.1 g/dL Low 13.3-17.7 [facility] Complete Blood Counton 12-21 Hematocrit (Bld) [Volume fraction] 26.2 % Low 40.0-52.[address] [facility] Comment on above: Performed By: #### C BCD #### [address] [id number] , Edi Irby M.D. FCAP, FASCP Hemoglobin (Bld) [Mass/Vol] 8.1 g/dL Low 13.3-17.[address] [facility] Comment on above: Performed By: #### C BCD #### [address] [address] , Edi Irby M.D. FCAP, FASCP MCH (RBC) [Entitic mass] 24.7 pg Low 27.0-40.[address] [facility] Comment on above: Performed By: #### C BCD #### [address] [address] , Edi Irby M.D. FCAP, FASCP Mean Corpusc Hgb Concentration 30.9 g/dL Low 31.0-36.[address] [facility] Comment on above: Performed By: #### C BCD #### [address] [id number] , Edi Irby M.D. FCAP, FASCP Mean Corpuscular Volume 79.9 CU uM Low 80.0-100.0 [facility] Comment on above: Performed By: #### C BCD #### [address] [id number] , Edi Irby M.D. FCAP, FASCP Platelet Count 332 10:3/uL Normal 130-[address] [facility] Comment on above: Performed By: #### C BCD #### [address] [id number] , Edi Irby M.D. FCAP, FASCP Red Blood Cell Count 3.28 10:6/uL Low 4.40-5.90 [facility] Comment on above: Performed By: #### C BCD #### [address] [id number] , Edi Irby M.D. FCAP, FASCP Red Cell Distribution 17.1 High 11.5-14.5 [facility] Comment on above: Performed By: #### C BCD #### [address] [id number] , Edi Irby M.D. FCAP, FASCP White Blood Cell Count 13.4 10:3/uL High 3.9-10.[address] [facility] Comment on above: Performed By: #### C BCD #### [address] [id number] , Edi Irby M.D. FCAP, FASCP Erythrocyte distribution wid th Auto (RBC) [Ratio]Ordered By: KIM QUEVEDO on 12-21-2022 Erythrocyte distribution width (RBC) [Ratio] 17.1 % High 11.5-14.5 [facility] Glomerular filtration rate/1 .73 sq M.predicted [Volume Rate/Area] in Serum, Plasma orOrdered By: KIM QUEVEDO on 12-21-2022 GFR/1.73 sq M.predicted (S/P/Bld) [Vol rate/Area] 16 mL/min [facility] Comment on above: EGFR <60.0 COULD BE ABNORMAL.THE GFR IS ESTIMATED USING THE MDRD STUDY EQUATION.*NOTE* IF THE RACE OF THE PATIENT WAS UNKNOWN AT THE TIME OFREGISTRATION, AND THE PATIENT IS , MULTIPLYTHE EGFR RESULT PROVIDED BY 1.21. Hematocrit Auto (Bld) [Volum e fraction]Ordered By: KIM QUEVEDO on 12-21-2022 Hematocrit (Bld) [Volume fraction] 26.2 % Low 40.0-52.0 [facility] MCH Auto (RBC) [Entitic mass ]Ordered By: KIM QUEVEDO on 12-21-2022 MCH (RBC) [Entitic mass] 24.7 pg Low 27-40 [facility] MCHC Auto (RBC) [Mass/Vol]Or dered By: KIM QUEVEDO on 12-21-2022 MCHC (RBC) [Mass/Vol] 30.9 g/dL Low 31-36 [facility] MCV Auto (RBC) [Entitic vol] Ordered By: KIM QUEVEDO on 12-21-2022 MCV (RBC) [Entitic vol] 79.9 CU uM Low 80.0-100.0 [facility] Platelets Auto (Bld) [#/Vol] Ordered By: KIM QUEVEDO on 12-21-2022 Platelets (Bld) [#/Vol] 332 10:3/uL 130-440 [facility] RBC Auto (Bld) [#/Vol]Ordere d By: KIM QUEVEDO on 12-21-2022 RBC (Bld) [#/Vol] 3.28 10:6/uL Low 4.40-5.[address] [facility] Serum or plasma anion gapOrd ered By: KIM QUEVEDO on 12-21-2022 Anion gap [Moles/Vol] 14 mmol/L 9-15 [facility] Serum or plasma calcium zainab urement (mass/volume)Ordered By: KIM QUEVEDO on 12-21-2022 Calcium [Mass/Vol] 8.7 mg/dL 8.6-10.0 [facility] Serum or plasma carbon dioxi de, total measurement (moles/volume)Ordered By: KIM QUEVEDO on 12-21-2022 CO2 [Moles/Vol] 26 mmol/L 22-29 [facility] Serum or plasma chloride eduardo surement (moles/volume)Ordered By: KIM QUEVEDO on 12-21-2022 Chloride [Moles/Vol] 93 mmol/L Low 98-107 [facility] Serum or plasma creatinine m easurement (mass/volume)Ordered By: KIM QUEVEDO on 12-21-2022 Creatinine [Mass/Vol] 4.01 mg/dL High 0.67-1.17 [facility] Serum or plasma glucose zainab urement (mass/volume)Ordered By: KIM QUEVEDO on 12-21-2022 Glucose [Mass/Vol] 78 mg/dL 70-100 [facility] Comment on above: INTREPRETATION FOR F ASTING BLOOD GLUCOSE: 70-100 mg/dl NORMAL GLUCOSE [id number] mg/dl IMPAIRED FASTING GLUCOSE (PRE-DIABETES)>125 mg/dl DIABETES - ON MORE THAN ONE TESTING Serum or plasma potassium me asurement (moles/volume)Ordered By: KIM QUEVEDO on 12-21-2022 Potassium [Moles/Vol] 6.1 mmol/L High 3.6-5.0 [facility] Serum or plasma sodium measu rement (moles/volume)Ordered By: KIM QUEVEDO on 12-21-2022 Sodium [Moles/Vol] 133 mmol/L Low 136-145 [facility] Serum or plasma urea nitroge n measurement (mass/volume)Ordered By: KIM QUEVEDO on 12-21-2022 Urea nitrogen [Mass/Vol] 42.1 mg/dL High 6.0-20.0 [facility] WBC Auto (Bld) [#/Vol]Ordere d By: KIM QUEVEDO on 12-21-2022 WBC (Bld) [#/Vol] 13.4 10:3/uL High 3.9-10.[address] [facility] Automated blood hematocrit ( volume fraction)Ordered By: KIM QUEVEDO on 12-07-2022 Hematocrit (Bld) [Volume fraction] 25.0 % Low 40.0-52.0 [facility] Comment on above: Performed By: #### L IVP6 #### [facility] [address] [place] [address] , Edi Irby M.D. FCAP, FASCP Automated erythrocyte mean c orpuscular hemoglobin (MCH) measurement (mass/erythrocyteOrdered By: KIM QUEVEDO on 12-07-2022 MCH (RBC) [Entitic mass] 23.8 pg Low 27.0-40.0 [facility] Comment on above: Performed By: #### L IVP6 #### [facility] [address] [place] [address] , Maribel Palencia, FASCP Basic Metabolic Panelon 11-13 GFR/1.73 sq M.predicted among non-blacks MDRD (S/P/Bld) [Vol rate/Area] 13 mL/min/{1.73_m2} Normal [facility] Comment on above: Result Comment: THE GFR IS ESTIMATED USING THE MDRD STUDY EQUATION. *NOTE* IF THE RACE OF THE PATIENT WAS UNKNOWN AT THE TIME OF REGISTRATION, AND THE PATIENT IS , MULTIPLY THE EGFR RESULT PROVIDED BY 1.21. EGFR <60.0 COULD BE ABNORMAL. Performed By: #### C HEM7 #### [facility] [address] [place] [address] , Maribel Palencia, FASCP Blood hemoglobin measurement (mass/volume)Ordered By: KIM QUEVEDO on 12-07-2022 Hemoglobin (Bld) [Mass/Vol] 7.4 g/dL Low 13.3-17.7 [facility] Comment on above: Performed By: #### L IVP6 #### [facility] [address] [place] [address] , Edi J. Macatol, M.D. FCAP, FASCP Complete Blood Counton 12-07 Mean Corpusc Hgb Concentration 29.6 g/dL Low 31.0-36.[address] [facility] Comment on above: Performed By: #### L IVP6 #### [address] [id number] , Edi Irby M.D. FCAP, FASCP Mean Corpuscular Volume 80.4 CU uM Normal 80.0-100.0 [facility] Comment on above: Performed By: #### L IVP6 #### [address] [id number] , Edi Irby M.D. FCAP, FASCP Platelet Count 301 10:3/uL Normal 130-[address] [facility] Comment on above: Performed By: #### L IVP6 #### [address] [id number] , Edi Irby M.D. FCAP, FASCP Red Blood Cell Count 3.11 10:6/uL Low 4.40-5.90 [facility] Comment on above: Performed By: #### L IVP6 #### [address] [id number] , Edi Irby M.D. FCAP, FASCP Red Cell Distribution 16.9 High 11.5-14.5 [facility] Comment on above: Performed By: #### L IVP6 #### [address] [address] , Edi Irby M.D. FCAP, FASCP White Blood Cell Count 10.5 10:3/uL Normal 3.9-10.[address] [facility] Comment on above: Performed By: #### L IVP6 #### [address] [id number] , Edi Irby M.D. CORINNA, FASCP Erythrocyte distribution wid th Auto (RBC) [Ratio]Ordered By: KIM QUEVEDO on 12-07-2022 Erythrocyte distribution width (RBC) [Ratio] 16.9 % High 11.5-14.5 [facility] Glomerular filtration rate/1 .73 sq M.predicted [Volume Rate/Area] in Serum, Plasma orOrdered By: KIM QUEVEDO on 12-07-2022 GFR/1.73 sq M.predicted (S/P/Bld) [Vol rate/Area] 13 mL/min [facility] Comment on above: EGFR <60.0 COULD BE ABNORMAL.THE GFR IS ESTIMATED USING THE MDRD STUDY EQUATION.*NOTE* IF THE RACE OF THE PATIENT WAS UNKNOWN AT THE TIME OFREGISTRATION, AND THE PATIENT IS , MULTIPLYTHE EGFR RESULT PROVIDED BY 1.21. MCHC Auto (RBC) [Mass/Vol]Or dered By: KIM QUEVEDO on 12-07-2022 MCHC (RBC) [Mass/Vol] 29.6 g/dL Low 31-36 [facility] MCV Auto (RBC) [Entitic vol] Ordered By: KIM QUEVEDO on 12-07-2022 MCV (RBC) [Entitic vol] 80.4 CU uM 80.0-100.0 [facility] Platelets Auto (Bld) [#/Vol] Ordered By: KIM QUEVEDO on 12-07-2022 Platelets (Bld) [#/Vol] 301 10:3/uL 130-440 [facility] RBC Auto (Bld) [#/Vol]Ordere d By: KIM QUEVEDO on 12-07-2022 RBC (Bld) [#/Vol] 3.11 10:6/uL Low 4.40-5.[address] [facility] Serum or plasma anion gapOrd ered By: KIM QUEVEDO on 12-07-2022 Anion gap [Moles/Vol] 14 mmol/L Normal 9-15 [facility] Comment on above: Performed By: #### C HEM7 #### [facility] [address] [facility] [address] , Edi Irby M.D. FCAP, FASCP Serum or plasma calcium zainab urement (mass/volume)Ordered By: KIM QUEVEDO on 12-07-2022 Calcium [Mass/Vol] 8.1 mg/dL Low 8.6-10.0 [facility] Comment on above: Performed By: #### C HEM7 #### [facility] [address] [place] [address] , Edi Irby M.D. FCAP, FASCP Serum or plasma carbon dioxi de, total measurement (moles/volume)Ordered By: KIM QUEVEDO on 12-07-2022 CO2 [Moles/Vol] 25 mmol/L Normal 22-29 [facility] Comment on above: Performed By: #### C HEM7 #### [facility] [address] [place] [address] , Maribel PalenciaAP, FASCP Serum or plasma chloride eduardo surement (moles/volume)Ordered By: KIM QUEVEDO on 12-07-2022 Chloride [Moles/Vol] 94 mmol/L Low 98-107 [facility] Comment on above: Performed By: #### C HEM7 #### [facility] [address] [place] [address] , Edi Irby M.D. FCAP, FASCP Serum or plasma creatinine m easurement (mass/volume)Ordered By: KIM QUEVEDO on 12-07-2022 Creatinine [Mass/Vol] 4.74 mg/dL High 0.67-1.17 [facility] Comment on above: Performed By: #### C HEM7 #### [facility] [address] [place] [address] , Edi Irby M.D. FCAP, FASCP Serum or plasma glucose zainab urement (mass/volume)Ordered By: KIM QUEVEDO on 12-07-2022 Glucose [Mass/Vol] 81 mg/dL Normal 70-100 [facility] Comment on above: INTREPRETATION FOR F ASTING BLOOD GLUCOSE: 70-100 mg/dl NORMAL GLUCOSE [id number] mg/dl IMPAIRED FASTING GLUCOSE (PRE-DIABETES)>125 mg/dl DIABETES - ON MORE THAN ONE TESTING Result Comment: INTR EPRETATION FOR FASTING BLOOD GLUCOSE: 70-100 mg/dl NORMAL GLUCOSE TOLERANCE 100-125 mg/dl IMPAIRED FASTING GLUCOSE (PRE-DIABETES) >125 mg/dl DIABETES - ON MORE THAN ONE TESTING Performed By: #### C HEM7 #### [facility] [address] [place] [address] , Edi Irby M.D. FCAP, FASCP Serum or plasma potassium me asurement (moles/volume)Ordered By: KIM QUEVEDO on 12-07-2022 Potassium [Moles/Vol] 5.6 mmol/L High 3.6-5.0 [facility] Comment on above: Performed By: #### C HEM7 #### [facility] [address] [place] [address] , Maribel PalenciaAP, FASCP Serum or plasma sodium measu rement (moles/volume)Ordered By: KIM QUEVEDO on 12-07-2022 Sodium [Moles/Vol] 133 mmol/L Low 136-145 [facility] Comment on above: Performed By: #### C HEM7 #### [facility] [address] [place] [address] , Edi Irby M.D. FCAP, FASCP Serum or plasma urea nitroge n measurement (mass/volume)Ordered By: KIM QUEVEDO on 12-07-2022 Urea nitrogen [Mass/Vol] 47.1 mg/dL High 6.0-20.0 [facility] Comment on above: Performed By: #### C HEM7 #### [facility] [address] [place] [address] , Edi Irby M.D. FCAP, FASCP WBC Auto (Bld) [#/Vol]Ordere d By: KIM QUEVEDO on 12-07-2022 WBC (Bld) [#/Vol] 10.5 10:3/uL 3.9-10.[address] [facility] Basic Metabolic Panelon 11-12 Anion gap [Moles/Vol] 11 mmol/L Normal 9-15 [facility] Comment on above: Performed By: #### C HEM7 #### [address] [id number] , Edi Irby M.D. FCAP, FASCP Calcium [Mass/Vol] 8.0 mg/dL Low 8.6-10.0 [facility] Comment on above: Performed By: #### C HEM7 #### [address] [id number] , Edi Irby M.D. FCAP, FASCP Chloride [Moles/Vol] 94 mmol/L Low 98-107 [facility] Comment on above: Performed By: #### C HEM7 #### [address] [id number] , Edi Irby M.D. FCAP, FASCP CO2 [Moles/Vol] 27 mmol/L Normal 22-[address] [facility] Comment on above: Performed By: #### C HEM7 #### [address] [id number] , Edi Irby M.D. FCAP, FASCP Creatinine [Mass/Vol] 3.53 mg/dL High 0.67-1.17 [facility] Comment on above: Performed By: #### C HEM7 #### [address] [id number] , Edi Irby M.D. FCAP, FASCP GFR/1.73 sq M.predicted among non-blacks MDRD (S/P/Bld) [Vol rate/Area] 19 mL/min/{1.73_m2} Normal [facility] Comment on above: Result Comment: THE GFR IS ESTIMATED USING THE MDRD STUDY EQUATION. *NOTE* IF THE RACE OF THE PATIENT WAS UNKNOWN AT THE TIME OF REGISTRATION, AND THE PATIENT IS , MULTIPLY THE EGFR RESULT PROVIDED BY 1.21. EGFR <60.0 COULD BE ABNORMAL. Performed By: #### C HEM7 #### [address] [id number] , Edi Irby M.D. FCAP, FASCP Glucose [Mass/Vol] 69 mg/dL Low 70-100 [facility] Comment on above: Result Comment: INTR EPRETATION FOR FASTING BLOOD GLUCOSE: 70-100 mg/dl NORMAL GLUCOSE TOLERANCE 100-125 mg/dl IMPAIRED FASTING GLUCOSE (PRE-DIABETES) >125 mg/dl DIABETES - ON MORE THAN ONE TESTING Performed By: #### C HEM7 #### [address] [id number] , Maribel PalenciaAP, FASCP Potassium [Moles/Vol] 5.0 mmol/L Normal 3.6-5.0 [facility] Comment on above: Performed By: #### C HEM7 #### [address] [address] , Maribel PalenciaAP, FASCP Sodium [Moles/Vol] 132 mmol/L Low 136-145 [facility] Comment on above: Performed By: #### C HEM7 #### [address] [address] , Edi Irby M.D. FCAP, FASCP Urea nitrogen [Mass/Vol] 30.1 mg/dL High 6.0-20.[address] [facility] Comment on above: Performed By: #### C HEM7 #### [address] [address] , Edi Irby M.D. FCAP, FASCP Basophils Auto (Bld) [#/Vol] Ordered By: KIM QUEVEDO on 11-30-2022 Basophils (Bld) [#/Vol] 0.07 10:3/uL 0.0-0.2 [facility] Basophils/100 WBC Auto (Bld) Ordered By: KIM QUEVEDO on 11-30-2022 Basophils/100 WBC (Bld) 0.8 % 0-1.0 [facility] Blood hemoglobin measurement (mass/volume)Ordered By: KIM QUEVEDO on 11-30-2022 Hemoglobin (Bld) [Mass/Vol] 6.4 g/dL Low 13.3-17.7 [facility] Comment on above: This result has been called to WILLIAM CHUA by aaron on 11/30/2022 09:19:40, and has been read back. ALERT VALUE ATTENTION NURSING ALERT VALUE NOTIFY PHYSICIAN WITHIN 30 MINUTES OF RECEIVING THIS REPORT CBC With Differentialon 11-12 Basophils Absolute Auto 0.07 10:3/uL Normal 0.0-0.[address] [facility] Comment on above: Performed By: #### C HEM7, CP1 #### [facility] [address] [place] [address] , Edi Irby M.D. FCAP, FASCP Basophils/100 WBC (Bld) 0.8 % Normal 0-1.0 [facility] Comment on above: Performed By: #### C HEM7, CP1 #### [facility] [address] [facility] [place] [address] , Edi Irby M.D. FCAP, FASCP Differential Type? Auto Differential Normal [facility] Comment on above: Performed By: #### C HEM7, CP1 #### [facility] [address] [place] [address] , Edi Irby M.D. FCAP, FASCP Eosinophils Absolute Auto 0.12 10:3/uL Normal 0.0-0.[address] [facility] Comment on above: Performed By: #### C HEMKUMAR Sterling1 #### [address] [address] , Edi Irby M.D. FCAP, FASCP Eosinophils/100 WBC (Bld) 1.3 % Normal 0.0-3.[address] [facility] Comment on above: Performed By: #### C HEMKUMAR Sterling1 #### [address] [address] , Edi Irby M.D. FCAP, FASCP Hematocrit (Bld) [Volume fraction] 21.7 % Low 40.0-52.[address] [facility] Comment on above: Performed By: #### Garrett HEMKUMAR Sterling1 #### [address] [address] , Edi Irby M.D. FCAP, FASCP Hemoglobin (Bld) [Mass/Vol] 6.4 g/dL Critically low 13.3-17.[address] [facility] Comment on above: Result Comment: This result has been called to WILLIAM CHUA by aaron on 11/30/2022 09:19:40, and has been read back. ALERT VALUE ATTENTION NURSING ALERT VALUE NOTIFY PHYSICIAN WITHIN 30 MINUTES OF RECEIVING THIS REPORT Performed By: #### Garrett HEMHallie CP1 #### [address] [address] , Edi Irby M.D. FCAP, FASCP Immature Gran Absolute Auto 0.05 10:3/uL Normal 0.01-0.[address] [facility] Comment on above: Performed By: #### Garrett HEM7, CP1 #### [address] [address] , Edi Irby M.D. FCAP, FASCP Immature granulocytes/100 WBC (Bld) 0.6 % Normal 0-0.[address] [facility] Comment on above: Performed By: #### Garrett HEMKUMAR Sterling1 #### [address] [id number] , Edi Irby M.D. FCAP, FASCP Lymphocytes Absolute Auto 1.59 10:3/uL Normal 1.5-4.[address] [facility] Comment on above: Performed By: #### Garrett HEMHallie, CP1 #### [address] [id number] , Eid Irby M.D. FCAP, FASCP Lymphocytes/100 WBC (Bld) 17.8 % Low 20.0-40.[address] [facility] Comment on above: Performed By: #### Garrett HYATT CP1 #### [address] [id number] , Edi Irby M.D. FCAP, FASCP MCH (RBC) [Entitic mass] 22.9 pg Low 27.0-40.[address] [facility] Comment on above: Performed By: #### Garrett HYATT CP1 #### [address] [id number] , Edi Irby M.D. FCAP, FASCP Mean Corpusc Hgb Concentration 29.5 g/dL Low 31.0-36.[address] [facility] Comment on above: Performed By: #### Garrett HEMHallie CP1 #### [address] [id number] , Edi Irby M.D. FCAP, FASCP Mean Corpuscular Volume 77.8 CU uM Low 80.0-100.0 [facility] Comment on above: Performed By: #### Garrett HEMHallie CP1 #### [address] [id number] , Edi Irby M.D. FCAP, FASCP Monocytes Absolute Auto 0.72 10:3/uL Normal 0.2-0.[address] [facility] Comment on above: Performed By: #### Garrett HEM7, CP1 #### [address] [id number] , Edi Irby M.D. FCAP, FASCP Monocytes/100 WBC (Bld) 8.1 % Normal 4.0-10.0 [facility] Comment on above: Performed By: #### Garrett HEMHallie, CP1 #### [address] [id number] , Edi Irby M.D. FCAP, FASCP Neutrophils Absolute Auto 6.37 10:3/uL Normal 2.0-7.[address] [facility] Comment on above: Performed By: #### Garrett HEMHallie, CP1 #### [address] [id number] , Edi Irby M.D. FCAP, FASCP Neutrophils/100 WBC (Bld) 71.4 % High 54.0-62.[address] [facility] Comment on above: Performed By: #### Garrett HEMHallie, CP1 #### [address] [id number] , Edi Irby M.D. FCAP, FASCP Nucleated RBC's % Auto 0.0 /100WBC Normal -0 [facility] Comment on above: Performed By: #### Garrett HEMHallie, CP1 #### [address] [id number] , Edi Irby M.D. FCAP, FASCP Nucleated RBC's Absolute Auto 0.00 10:3/uL Normal -[address] [facility] Comment on above: Performed By: #### Garrett HEMHallie, CP1 #### [address] [id number] , Edi Irby M.D. FCAP, FASCP Platelet Count 329 10:3/uL Normal 130-[address] [facility] Comment on above: Performed By: #### C HEM7, CP1 #### [address] [id number] , Edi Irby M.D. FCAP, FASCP Red Blood Cell Count 2.79 10:6/uL Low 4.40-5.90 [facility] Comment on above: Performed By: #### Garrett HEMHallie, CP1 #### [address] [id number] , Edi Irby M.D. FCAP, FASCP Red Cell Distribution 15.5 High 11.5-14.5 [facility] Comment on above: Performed By: #### Garrett HEMHallie, CP1 #### [address] [id number] , Edi Irby M.D. FCAP, FASCP White Blood Cell Count 8.9 10:3/uL Normal 3.9-10.6 [facility] Comment on above: Performed By: #### Garrett HEM7, CP1 #### [address] [id number] , Edi Irby M.D. FCAP, FASCP Differential cell count meth od - BloodOrdered By: KIM QUEVEDO on 11-30-2022 Differential cell count method Nom (Bld) Auto differential [facility] Eosinophils Auto (Bld) [#/Vo l]Ordered By: KIM QUEVEDO on 11-30-2022 Eosinophils (Bld) [#/Vol] 0.12 10:3/uL 0.0-0.5 [facility] Eosinophils/100 WBC Auto (Bl d)Ordered By: KIM QUEVEDO on 11-30-2022 Eosinophils/100 WBC (Bld) 1.3 % 0.0-3.0 [facility] Erythrocyte distribution wid th Auto (RBC) [Ratio]Ordered By: KIM QUEVEDO on 11-30-2022 Erythrocyte distribution width (RBC) [Ratio] 15.5 % High 11.5-14.5 [facility] Glomerular filtration rate/1 .73 sq M.predicted [Volume Rate/Area] in Serum, Plasma orOrdered By: KIM QUEVEDO on 11-30-2022 GFR/1.73 sq M.predicted (S/P/Bld) [Vol rate/Area] 19 mL/min [facility] Comment on above: EGFR <60.0 COULD BE ABNORMAL.THE GFR IS ESTIMATED USING THE MDRD STUDY EQUATION.*NOTE* IF THE RACE OF THE PATIENT WAS UNKNOWN AT THE TIME OFREGISTRATION, AND THE PATIENT IS , MULTIPLYTHE EGFR RESULT PROVIDED BY 1.21. Hematocrit Auto (Bld) [Volum e fraction]Ordered By: KIM QUEVEDO on 11-30-2022 Hematocrit (Bld) [Volume fraction] 21.7 % Low 40.0-52.0 [facility] Immature granulocytes Auto ( Bld) [#/Vol]Ordered By: KIM QUEVEDO on 11-30-2022 Immature granulocytes (Bld) [#/Vol] 0.05 10:3/uL 0.01-0.2 [facility] Immature granulocytes/100 WB C Auto (Bld)Ordered By: KIM QUEVEDO on 11-30-2022 Immature granulocytes/100 WBC (Bld) 0.6 % 0-0.9 [facility] Lymphocytes Auto (Bld) [#/Vo l]Ordered By: KIM QUEVEDO on 11-30-2022 Lymphocytes (Bld) [#/Vol] 1.59 10:3/uL 1.5-4.0 [facility] Lymphocytes/100 WBC Auto (Bl d)Ordered By: KIM QUEVEDO on 11-30-2022 Lymphocytes/100 WBC (Bld) 17.8 % Low 20.0-40.0 [facility] MCH Auto (RBC) [Entitic mass ]Ordered By: KIM QUEVEDO on 11-30-2022 MCH (RBC) [Entitic mass] 22.9 pg Low 27-40 [facility] MCHC Auto (RBC) [Mass/Vol]Or dered By: KIM QUEVEDO on 11-30-2022 MCHC (RBC) [Mass/Vol] 29.5 g/dL Low 31-36 [facility] MCV Auto (RBC) [Entitic vol] Ordered By: KIM QUEVEDO on 11-30-2022 MCV (RBC) [Entitic vol] 77.8 CU uM Low 80.0-100.0 [facility] Monocytes Auto (Bld) [#/Vol] Ordered By: KIM QUEVEDO on 11-30-2022 Monocytes (Bld) [#/Vol] 0.72 10:3/uL 0.2-0.8 [facility] Monocytes/100 WBC Auto (Bld) Ordered By: KIM QUEVEDO on 11-30-2022 Monocytes/100 WBC (Bld) 8.1 % 4.0-10.0 M [facility] Neutrophils Auto (Bld) [#/Vo l]Ordered By: KIM QUEVEDO on 11-30-2022 Neutrophils (Bld) [#/Vol] 6.37 10:3/uL 2.0-7.0 [facility] Neutrophils/100 WBC Auto (Bl d)Ordered By: KIM QUEVEDO on 11-30-2022 Neutrophils/100 WBC (Bld) 71.4 % High 54.0-62.0 [facility] Nucleated RBC Auto (Bld) [#/ Vol]Ordered By: KIM QUEVEDO on 11-30-2022 Nucleated RBC (Bld) [#/Vol] 0.00 10:3/uL <0 [facility] Nucleated RBC/100 WBC Auto ( Bld) [Ratio]Ordered By: KIM QUEVEDO on 11-30-2022 Nucleated RBC/100 WBC (Bld) [Ratio] 0.0 /100WBC <0 [facility] Platelets Auto (Bld) [#/Vol] Ordered By: KIM QUEVEDO on 11-30-2022 Platelets (Bld) [#/Vol] 329 10:3/uL 130-440 [facility] RBC Auto (Bld) [#/Vol]Ordere d By: KIM QUEVEDO on 11-30-2022 RBC (Bld) [#/Vol] 2.79 10:6/uL Low 4.40-5.[address] [facility] Serum or plasma anion gapOrd ered By: KIM QUEVEDO on 11-30-2022 Anion gap [Moles/Vol] 11 mmol/L 9-15 [facility] Serum or plasma calcium zainab urement (mass/volume)Ordered By: KIM QUEVEDO on 11-30-2022 Calcium [Mass/Vol] 8.0 mg/dL Low 8.6-10.0 [facility] Serum or plasma carbon dioxi de, total measurement (moles/volume)Ordered By: KIM QUEVEDO on 11-30-2022 CO2 [Moles/Vol] 27 mmol/L - [facility] Serum or plasma chloride eduardo surement (moles/volume)Ordered By: KIM QUEVEDO on 11-30-2022 Chloride [Moles/Vol] 94 mmol/L Low 98-107 [facility] Serum or plasma creatinine m easurement (mass/volume)Ordered By: KIM QUEVEDO on 11-30-2022 Creatinine [Mass/Vol] 3.53 mg/dL High 0.67-1.17 [facility] Serum or plasma glucose zainab urement (mass/volume)Ordered By: KIM QUEVEDO on 11-30-2022 Glucose [Mass/Vol] 69 mg/dL Low 70-100 [facility] Comment on above: INTREPRETATION FOR F ASTING BLOOD GLUCOSE: 70-100 mg/dl NORMAL GLUCOSE [id number] mg/dl IMPAIRED FASTING GLUCOSE (PRE-DIABETES)>125 mg/dl DIABETES - ON MORE THAN ONE TESTING Serum or plasma potassium me asurement (moles/volume)Ordered By: KIM QUEVEDO on 11-30-2022 Potassium [Moles/Vol] 5.0 mmol/L 3.6-5.0 [facility] Serum or plasma sodium measu rement (moles/volume)Ordered By: KIM QUEVEDO on 11-30-2022 Sodium [Moles/Vol] 132 mmol/L Low 136-145 [facility] Serum or plasma urea nitroge n measurement (mass/volume)Ordered By: KIM QUEVEDO on 11-30-2022 Urea nitrogen [Mass/Vol] 30.1 mg/dL High 6.0-20.0 [facility] WBC Auto (Bld) [#/Vol]Ordere d By: KIM QUEVEDO on 11-30-2022 WBC (Bld) [#/Vol] 8.9 10:3/uL 3.9-10.6 [facility] Blood hemoglobin measurement (mass/volume)Ordered By: KIM QUEVEDO on 11-26-2022 Hemoglobin (Bld) [Mass/Vol] 7.1 g/dL Low 13.3-17.7 [facility] Hematocrit Auto (Bld) [Volum e fraction]Ordered By: KIM QUEVEDO on 11-26-2022 Hematocrit (Bld) [Volume fraction] 24.4 % Low 40.0-52.0 [facility] Hemoglobin Hematocriton 11-12 Hematocrit (Bld) [Volume fraction] 24.4 % Low 40.0-52.[address] [facility] Comment on above: Performed By: #### H H #### [facility] [address] [place] [address] , Edi Irby M.D. FCAP, FASCP Hemoglobin (Bld) [Mass/Vol] 7.1 g/dL Low 13.3-17.[address] [facility] Comment on above: Performed By: #### H H #### [facility] [address] [place] [id number] , Edi Irby M.D. FCAP, FASCP Basic Metabolic Panelon 11-12 Anion gap [Moles/Vol] 14 mmol/L Normal 9-15 [facility] Comment on above: Performed By: #### C BCD #### [facility] [address] [place] [address] , Edi Irby M.D. FCAP, FASCP Calcium [Mass/Vol] 8.0 mg/dL Low 8.6-10.0 [facility] Comment on above: Performed By: #### C BCD #### [facility] [address] [place] [address] , Edi Irby M.D. FCAP, FASCP Chloride [Moles/Vol] 93 mmol/L Low 98-107 [facility] Comment on above: Performed By: #### C BCD #### [facility] [address] [place] [address] , Edi Irby M.D. FCAP, FASCP CO2 [Moles/Vol] 24 mmol/L Normal 22-[address] [facility] Comment on above: Performed By: #### C BCD #### [address] [address] , Edi Irby M.D. FCAP, FASCP Creatinine [Mass/Vol] 6.21 mg/dL High 0.67-1.17 [facility] Comment on above: Performed By: #### C BCD #### [address] [address] , Edi Irby M.D. FCAP, FASCP GFR/1.73 sq M.predicted among non-blacks MDRD (S/P/Bld) [Vol rate/Area] 10 mL/min/{1.73_m2} Normal [facility] Comment on above: Result Comment: THE GFR IS ESTIMATED USING THE MDRD STUDY EQUATION. *NOTE* IF THE RACE OF THE PATIENT WAS UNKNOWN AT THE TIME OF REGISTRATION, AND THE PATIENT IS , MULTIPLY THE EGFR RESULT PROVIDED BY 1.21. EGFR <60.0 COULD BE ABNORMAL. Performed By: #### C BCD #### [address] [address] , Edi Irby M.D. FCAP, FASCP Glucose [Mass/Vol] 79 mg/dL Normal 70-100 [facility] Comment on above: Result Comment: INTR EPRETATION FOR FASTING BLOOD GLUCOSE: 70-100 mg/dl NORMAL GLUCOSE TOLERANCE 100-125 mg/dl IMPAIRED FASTING GLUCOSE (PRE-DIABETES) >125 mg/dl DIABETES - ON MORE THAN ONE TESTING Performed By: #### C BCD #### [facility] [address], [place] [id number] , Maribel PalenciaAP, FASCP Potassium [Moles/Vol] 5.6 mmol/L High 3.6-5.0 [facility] Comment on above: Performed By: #### C BCD #### [address] [id number] , Maribel Palencia, FASCP Sodium [Moles/Vol] 131 mmol/L Low 136-145 [facility] Comment on above: Performed By: #### C BCD #### [address] [id number] , Maribel PalenciaAP, FASCP Urea nitrogen [Mass/Vol] 58.0 mg/dL High 6.0-20.[address] [facility] Comment on above: Performed By: #### C BCD #### [address] [id number] , Edi Irby M.D. FCAP, FASCP Blood hemoglobin measurement (mass/volume)Ordered By: KIM QUEVEDO on 11-23-2022 Hemoglobin (Bld) [Mass/Vol] 7.2 g/dL Low 13.3-17.7 [facility] Complete Blood Counton 11-23 Hematocrit (Bld) [Volume fraction] 25.1 % Low 40.0-52.[address] [facility] Comment on above: Performed By: #### L IVP6 #### [address] [id number] , Edi Irby M.D. FCAP, FASCP Hemoglobin (Bld) [Mass/Vol] 7.2 g/dL Low 13.3-17.[address] [facility] Comment on above: Performed By: #### L IVP6 #### [address] [id number] , Edi Irby M.D. FCAP, FASCP MCH (RBC) [Entitic mass] 22.9 pg Low 27.0-40.[address] [facility] Comment on above: Performed By: #### L IVP6 #### [address] [id number] , Edi Irby M.D. FCAP, FASCP Mean Corpusc Hgb Concentration 28.7 g/dL Low 31.0-36.[address] [facility] Comment on above: Performed By: #### L IVP6 #### [address] [id number] , Edi Irby M.D. FCAP, FASCP Mean Corpuscular Volume 79.9 CU uM Low 80.0-100.0 [facility] Comment on above: Performed By: #### L IVP6 #### [address] [id number] , Edi Irby M.D. FCAP, FASCP Platelet Count 442 10:3/uL High 130-[address] [facility] Comment on above: Performed By: #### L IVP6 #### [address] [id number] , Edi Irby M.D. FCAP, FASCP Red Blood Cell Count 3.14 10:6/uL Low 4.40-5.90 [facility] Comment on above: Performed By: #### L IVP6 #### [address] [id number] , Edi Irby M.D. FCAP, FASCP Red Cell Distribution 15.7 High 11.5-14.5 [facility] Comment on above: Performed By: #### L IVP6 #### [facility] [address] [place] [address] , Edi Irby M.D. FCAP, FASCP White Blood Cell Count 10.1 10:3/uL Normal 3.9-10.[address] [facility] Comment on above: Performed By: #### L IVP6 #### [facility] [address] [facility], [place] [id number] , Edi Irby M.D. FCAP, FASCP Erythrocyte distribution wid th Auto (RBC) [Ratio]Ordered By: KIM QUEVEDO on 11-23-2022 Erythrocyte distribution width (RBC) [Ratio] 15.7 % High 11.5-14.5 [facility] Glomerular filtration rate/1 .73 sq M.predicted [Volume Rate/Area] in Serum, Plasma orOrdered By: KIM QUEVEDO on 11-23-2022 GFR/1.73 sq M.predicted (S/P/Bld) [Vol rate/Area] 10 mL/min [facility] Comment on above: EGFR <60.0 COULD BE ABNORMAL.THE GFR IS ESTIMATED USING THE MDRD STUDY EQUATION.*NOTE* IF THE RACE OF THE PATIENT WAS UNKNOWN AT THE TIME OFREGISTRATION, AND THE PATIENT IS , MULTIPLYTHE EGFR RESULT PROVIDED BY 1.21. Hematocrit Auto (Bld) [Volum e fraction]Ordered By: KIM QUEVEDO on 11-23-2022 Hematocrit (Bld) [Volume fraction] 25.1 % Low 40.0-52.0 [facility] MCH Auto (RBC) [Entitic mass ]Ordered By: KIM QUEVEDO on 11-23-2022 MCH (RBC) [Entitic mass] 22.9 pg Low 27-40 [facility] MCHC Auto (RBC) [Mass/Vol]Or dered By: KIM QUEVEDO on 11-23-2022 MCHC (RBC) [Mass/Vol] 28.7 g/dL Low 31-36 [facility] MCV Auto (RBC) [Entitic vol] Ordered By: KIM QUEVEDO on 11-23-2022 MCV (RBC) [Entitic vol] 79.9 CU uM Low 80.0-100.0 [facility] Platelets Auto (Bld) [#/Vol] Ordered By: KIM QUEVEDO on 11-23-2022 Platelets (Bld) [#/Vol] 442 10:3/uL High 130-440 [facility] RBC Auto (Bld) [#/Vol]Ordere d By: KIM QUEVEDO on 11-23-2022 RBC (Bld) [#/Vol] 3.14 10:6/uL Low 4.40-5.[address] [facility] Serum or plasma anion gapOrd ered By: KIM QUEVEDO on 11-23-2022 Anion gap [Moles/Vol] 14 mmol/L 9-15 [facility] Serum or plasma calcium zainab urement (mass/volume)Ordered By: KIM QUEVEDO on 11-23-2022 Calcium [Mass/Vol] 8.0 mg/dL Low 8.6-10.0 [facility] Serum or plasma carbon dioxi de, total measurement (moles/volume)Ordered By: KIM QUEVEDO on 11-23-2022 CO2 [Moles/Vol] 24 mmol/L 22- [facility] Serum or plasma chloride eduardo surement (moles/volume)Ordered By: KIM QUEVEDO on 11-23-2022 Chloride [Moles/Vol] 93 mmol/L Low 98-107 [facility] Serum or plasma creatinine m easurement (mass/volume)Ordered By: KIM QUEVEDO on 11-23-2022 Creatinine [Mass/Vol] 6.21 mg/dL High 0.67-1.17 [facility] Serum or plasma glucose zainab urement (mass/volume)Ordered By: KIM QUEVEDO on 11-23-2022 Glucose [Mass/Vol] 79 mg/dL 70-100 [facility] Comment on above: INTREPRETATION FOR F ASTING BLOOD GLUCOSE: 70-100 mg/dl NORMAL GLUCOSE [id number] mg/dl IMPAIRED FASTING GLUCOSE (PRE-DIABETES)>125 mg/dl DIABETES - ON MORE THAN ONE TESTING Serum or plasma potassium me asurement (moles/volume)Ordered By: KIM QUEVEDO on 11-23-2022 Potassium [Moles/Vol] 5.6 mmol/L High 3.6-5.0 [facility] Serum or plasma sodium measu rement (moles/volume)Ordered By: KIM QUEVEDO on 11-23-2022 Sodium [Moles/Vol] 131 mmol/L Low 136-145 [facility] Serum or plasma urea nitroge n measurement (mass/volume)Ordered By: KIM QUEVEDO on 11-23-2022 Urea nitrogen [Mass/Vol] 58.0 mg/dL High 6.0-20.0 [facility] WBC Auto (Bld) [#/Vol]Ordere d By: KIM QUEVEDO on 11-23-2022 WBC (Bld) [#/Vol] 10.1 10:3/uL 3.9-10.[address] [facility] Basic Metabolic Panelon Anion gap [Moles/Vol] 16 mmol/L High 9-15 [facility] Comment on above: Performed By: #### C BCD #### [facility] [address] [place] [address] , Edi Irby M.D. FCAP, FASCP Calcium [Mass/Vol] 8.6 mg/dL Normal 8.6-10.0 [facility] Comment on above: Performed By: #### C BCD #### [facility] [address] [place] [address] , Edi Irby M.D. FCAP, FASCP Chloride [Moles/Vol] 91 mmol/L Low 98-107 [facility] Comment on above: Performed By: #### C BCD #### [facility] [address] [place] [address] , Edi Irby M.D. FCAP, FASCP CO2 [Moles/Vol] 24 mmol/L Normal 22-[address] [facility] Comment on above: Performed By: #### C BCD #### [facility] [address] [place] [address] , Edi Irby M.D. FCAP, FASCP Creatinine [Mass/Vol] 4.97 mg/dL High 0.67-1.17 [facility] Comment on above: Performed By: #### C BCD #### [facility] [address] [place] [address] , Edi Irby M.D. FCAP, FASCP GFR/1.73 sq M.predicted among non-blacks MDRD (S/P/Bld) [Vol rate/Area] 13 mL/min/{1.73_m2} Normal [facility] Comment on above: Result Comment: THE GFR IS ESTIMATED USING THE MDRD STUDY EQUATION. *NOTE* IF THE RACE OF THE PATIENT WAS UNKNOWN AT THE TIME OF REGISTRATION, AND THE PATIENT IS , MULTIPLY THE EGFR RESULT PROVIDED BY 1.21. EGFR <60.0 COULD BE ABNORMAL. Performed By: #### C BCD #### [facility] [address] [place] [address] , Maribel PalneciaAP, FASCP Glucose [Mass/Vol] 56 mg/dL Low 70-100 [facility] Comment on above: Result Comment: INTR EPRETATION FOR FASTING BLOOD GLUCOSE: 70-100 mg/dl NORMAL GLUCOSE TOLERANCE 100-125 mg/dl IMPAIRED FASTING GLUCOSE (PRE-DIABETES) >125 mg/dl DIABETES - ON MORE THAN ONE TESTING Performed By: #### C BCD #### [facility] [address] [place] [address] , Edi Irby M.D. FCAP, FASCP Potassium [Moles/Vol] 5.5 mmol/L High 3.6-5.0 [facility] Comment on above: Performed By: #### C BCD #### [facility] [address], [place] [id number] , Edi Irby M.D. FCAP, FASCP Sodium [Moles/Vol] 131 mmol/L Low 136-145 [facility] Comment on above: Performed By: #### C BCD #### [facility] [address], [place] [id number] , Edi Irby M.D. FCAP, FASCP Urea nitrogen [Mass/Vol] 44.3 mg/dL High 6.0-20.[address] [facility] Comment on above: Performed By: #### C BCD #### [address] [id number] , Edi Irby M.D. FCAP, FASCP Basophils Auto (Bld) [#/Vol] Ordered By: KIM QUEVEDO on 11-16-2022 Basophils (Bld) [#/Vol] 0.07 10:3/uL 0.0-0.2 [facility] Basophils/100 WBC Auto (Bld) Ordered By: KIM QUEVEDO on 11-16-2022 Basophils/100 WBC (Bld) 0.6 % 0-1.0 [facility] Blood hemoglobin measurement (mass/volume)Ordered By: KIM QUEVEDO on 11-16-2022 Hemoglobin (Bld) [Mass/Vol] 8.4 g/dL Low 13.3-17.7 [facility] CBC With Differentialon Basophils Absolute Auto 0.07 10:3/uL Normal 0.0-0.[address] [facility] Comment on above: Performed By: #### C BCD #### [facility] [address], [place] [id number] , Edi Irby M.D. FCAP, FASCP Basophils/100 WBC (Bld) 0.6 % Normal 0-1.0 [facility] Comment on above: Performed By: #### C BCD #### [facility] [address], [place] [id number] , Edi Irby M.D. FCAP, FASCP Differential Type? Auto Differential Normal [facility] Comment on above: Performed By: #### C BCD #### [address] [id number] , Edi Irby M.D. FCAP, FASCP Eosinophils Absolute Auto 0.17 10:3/uL Normal 0.0-0.[address] [facility] Comment on above: Performed By: #### C BCD #### [address] [id number] , Edi Irby M.D. FCAP, FASCP Eosinophils/100 WBC (Bld) 1.5 % Normal 0.0-3.[address] [facility] Comment on above: Performed By: #### C BCD #### [address] [id number] , Edi Irby M.D. FCAP, FASCP Hematocrit (Bld) [Volume fraction] 28.8 % Low 40.0-52.[address] [facility] Comment on above: Performed By: #### C BCD #### [address] [id number] , Edi Irby M.D. FCAP, FASCP Hemoglobin (Bld) [Mass/Vol] 8.4 g/dL Low 13.3-17.[address] [facility] Comment on above: Performed By: #### C BCD #### [address] [id number] , Edi Irby M.D. FCAP, FASCP Immature Gran Absolute Auto 0.05 10:3/uL Normal 0.01-0.[address] [facility] Comment on above: Performed By: #### C BCD #### [address] [id number] , Edi Irby M.D. FCAP, FASCP Immature granulocytes/100 WBC (Bld) 0.4 % Normal 0-0.[address] [facility] Comment on above: Performed By: #### C BCD #### [address] [id number] , Edi Irby M.D. FCAP, FASCP Lymphocytes Absolute Auto 1.66 10:3/uL Normal 1.5-4.[address] [facility] Comment on above: Performed By: #### C BCD #### [address] [id number] , Edi Irby M.D. FCAP, FASCP Lymphocytes/100 WBC (Bld) 14.3 % Low 20.0-40.[address] [facility] Comment on above: Performed By: #### C BCD #### [address] [id number] , Edi Irby M.D. FCAP, FASCP MCH (RBC) [Entitic mass] 23.6 pg Low 27.0-40.[address] [facility] Comment on above: Performed By: #### C BCD #### [address] [id number] , Edi Irby M.D. FCAP, FASCP Mean Corpusc Hgb Concentration 29.2 g/dL Low 31.0-36.[address] [facility] Comment on above: Performed By: #### C BCD #### [address] [id number] , Edi Irby M.D. FCAP, FASCP Mean Corpuscular Volume 80.9 CU uM Normal 80.0-100.0 [facility] Comment on above: Performed By: #### C BCD #### [address] [id number] , Edi Irby M.D. FCAP, FASCP Monocytes Absolute Auto 0.90 10:3/uL High 0.2-0.[address] [facility] Comment on above: Performed By: #### C BCD #### [address] [id number] , Edi Irby M.D. FCAP, FASCP Monocytes/100 WBC (Bld) 7.7 % Normal 4.0-10.0 [facility] Comment on above: Performed By: #### C BCD #### [address] [id number] , Edi Irby M.D. FCAP, FASCP Neutrophils Absolute Auto 8.78 10:3/uL High 2.0-7.[address] [facility] Comment on above: Performed By: #### C BCD #### [address] [id number] , Edi Irby M.D. FCAP, FASCP Neutrophils/100 WBC (Bld) 75.5 % High 54.0-62.[address] [facility] Comment on above: Performed By: #### C BCD #### [address] [id number] , Edi Irby M.D. FCAP, FASCP Nucleated RBC's % Auto 0.0 /100WBC Normal -0 [facility] Comment on above: Performed By: #### C BCD #### [address] [id number] , Edi Irby M.D. FCAP, FASCP Nucleated RBC's Absolute Auto 0.00 10:3/uL Normal -[address] [facility] Comment on above: Performed By: #### C BCD #### [facility] [address] [facility], [place] [id number] , Edi Irby M.D. FCAP, FASCP Platelet Count 391 10:3/uL Normal 130-[address] [facility] Comment on above: Performed By: #### C BCD #### [address], [place] [id number] , Edi Irby M.D. FCAP, FASCP Red Blood Cell Count 3.56 10:6/uL Low 4.40-5.90 [facility] Comment on above: Performed By: #### C MAYURID #### [address] [id number] , Edi Irby M.D. FCAP, FASCP Red Cell Distribution 15.4 High 11.5-14.5 [facility] Comment on above: Performed By: #### C BCD #### [address], [place] [id number] , Edi Irby M.D. FCAP, FASCP White Blood Cell Count 11.6 10:3/uL High 3.9-10.[address] [facility] Comment on above: Performed By: #### C BCD #### [address] [id number] , Edi Irby M.D. FCAP, FASCP Differential cell count meth od - BloodOrdered By: KIM QUEVEDO on 11-16-2022 Differential cell count method Nom (Bld) Auto differential [facility] Eosinophils Auto (Bld) [#/Vo l]Ordered By: KIM QUEVEDO on 11-16-2022 Eosinophils (Bld) [#/Vol] 0.17 10:3/uL 0.0-0.5 [facility] Eosinophils/100 WBC Auto (Bl d)Ordered By: KIM QUEVEDO on 11-16-2022 Eosinophils/100 WBC (Bld) 1.5 % 0.0-3.0 [facility] Erythrocyte distribution wid th Auto (RBC) [Ratio]Ordered By: KIM QUEVEDO on 11-16-2022 Erythrocyte distribution width (RBC) [Ratio] 15.4 % High 11.5-14.5 [facility] Glomerular filtration rate/1 .73 sq M.predicted [Volume Rate/Area] in Serum, Plasma orOrdered By: KIM QUEVEDO on 11-16-2022 GFR/1.73 sq M.predicted (S/P/Bld) [Vol rate/Area] 13 mL/min [facility] Comment on above: EGFR <60.0 COULD BE ABNORMAL.THE GFR IS ESTIMATED USING THE MDRD STUDY EQUATION.*NOTE* IF THE RACE OF THE PATIENT WAS UNKNOWN AT THE TIME OFREGISTRATION, AND THE PATIENT IS , MULTIPLYTHE EGFR RESULT PROVIDED BY 1.21. Hematocrit Auto (Bld) [Volum e fraction]Ordered By: KIM QUEVEDO on 11-16-2022 Hematocrit (Bld) [Volume fraction] 28.8 % Low 40.0-52.0 [facility] Immature granulocytes Auto ( Bld) [#/Vol]Ordered By: KIM QUEVEDO on 11-16-2022 Immature granulocytes (Bld) [#/Vol] 0.05 10:3/uL 0.01-0.2 [facility] Immature granulocytes/100 WB C Auto (Bld)Ordered By: KIM QUEVEDO on 11-16-2022 Immature granulocytes/100 WBC (Bld) 0.4 % 0-0.9 [facility] Lymphocytes Auto (Bld) [#/Vo l]Ordered By: KIM QUEVEDO on 11-16-2022 Lymphocytes (Bld) [#/Vol] 1.66 10:3/uL 1.5-4.0 [facility] Lymphocytes/100 WBC Auto (Bl d)Ordered By: KIM QUEVEDO on 11-16-2022 Lymphocytes/100 WBC (Bld) 14.3 % Low 20.0-40.0 [facility] MCH Auto (RBC) [Entitic mass ]Ordered By: KIM QUEVEDO on 11-16-2022 MCH (RBC) [Entitic mass] 23.6 pg Low 27-40 [facility] MCHC Auto (RBC) [Mass/Vol]Or dered By: KIM QUEVEDO on 11-16-2022 MCHC (RBC) [Mass/Vol] 29.2 g/dL Low 31-36 [facility] MCV Auto (RBC) [Entitic vol] Ordered By: KIM QUEVEDO on 11-16-2022 MCV (RBC) [Entitic vol] 80.9 CU uM 80.0-100.0 [facility] Monocytes Auto (Bld) [#/Vol] Ordered By: KIM QUEVEDO on 11-16-2022 Monocytes (Bld) [#/Vol] 0.90 10:3/uL High 0.2-0.8 [facility] Monocytes/100 WBC Auto (Bld) Ordered By: KIM QUEVEDO on 11-16-2022 Monocytes/100 WBC (Bld) 7.7 % 4.0-10.0 [facility] Neutrophils Auto (Bld) [#/Vo l]Ordered By: KIM QUEVEDO on 11-16-2022 Neutrophils (Bld) [#/Vol] 8.78 10:3/uL High 2.0-7.0 [facility] Neutrophils/100 WBC Auto (Bl d)Ordered By: KIM QUEVEDO on 11-16-2022 Neutrophils/100 WBC (Bld) 75.5 % High 54.0-62.0 [facility] Nucleated RBC Auto (Bld) [#/ Vol]Ordered By: KIM QUEVEDO on 11-16-2022 Nucleated RBC (Bld) [#/Vol] 0.00 10:3/uL <0 [facility] Nucleated RBC/100 WBC Auto ( Bld) [Ratio]Ordered By: KIM QUEVEDO on 11-16-2022 Nucleated RBC/100 WBC (Bld) [Ratio] 0.0 /100WBC <0 [facility] Platelets Auto (Bld) [#/Vol] Ordered By: KIM QUEVEOD on 11-16-2022 Platelets (Bld) [#/Vol] 391 10:3/uL 130-440 [facility] RBC Auto (Bld) [#/Vol]Ordere d By: KIM QUEVEDO on 11-16-2022 RBC (Bld) [#/Vol] 3.56 10:6/uL Low 4.40-5.[address] [facility] Serum or plasma anion gapOrd ered By: KIM QUEVEDO on 11-16-2022 Anion gap [Moles/Vol] 16 mmol/L High 9-15 [facility] Serum or plasma calcium zainab urement (mass/volume)Ordered By: KIM QUEVEDO on 11-16-2022 Calcium [Mass/Vol] 8.6 mg/dL 8.6-10.0 [facility] Serum or plasma carbon dioxi de, total measurement (moles/volume)Ordered By: KIM QUEVEDO on 11-16-2022 CO2 [Moles/Vol] 24 mmol/L 22- [facility] Serum or plasma chloride eduardo surement (moles/volume)Ordered By: KIM QUEVEDO on 11-16-2022 Chloride [Moles/Vol] 91 mmol/L Low 98-107 [facility] Serum or plasma creatinine m easurement (mass/volume)Ordered By: KIM QUEVEDO on 11-16-2022 Creatinine [Mass/Vol] 4.97 mg/dL High 0.67-1.17 [facility] Serum or plasma glucose zainab urement (mass/volume)Ordered By: KIM QUEVEDO on 11-16-2022 Glucose [Mass/Vol] 56 mg/dL Low 70-100 [facility] Comment on above: INTREPRETATION FOR F ASTING BLOOD GLUCOSE: 70-100 mg/dl NORMAL GLUCOSE [id number] mg/dl IMPAIRED FASTING GLUCOSE (PRE-DIABETES)>125 mg/dl DIABETES - ON MORE THAN ONE TESTING Serum or plasma potassium me asurement (moles/volume)Ordered By: KIM QUEVEDO on 11-16-2022 Potassium [Moles/Vol] 5.5 mmol/L High 3.6-5.0 [facility] Serum or plasma sodium measu rement (moles/volume)Ordered By: KIM QUEVEDO on 11-16-2022 Sodium [Moles/Vol] 131 mmol/L Low 136-145 [facility] Serum or plasma urea nitroge n measurement (mass/volume)Ordered By: KIM QUEVEDO on 11-16-2022 Urea nitrogen [Mass/Vol] 44.3 mg/dL High 6.0-20.0 [facility] WBC Auto (Bld) [#/Vol]Ordere d By: KIM QUEVEDO on 11-16-2022 WBC (Bld) [#/Vol] 11.6 10:3/uL High 3.9-10.[address] [facility] Basic Metabolic Panelon 04-2 Anion gap [Moles/Vol] 12 mmol/L Normal 9-15 [facility] Comment on above: Performed By: #### L IVP6 #### [facility] [address] [place] [address] , Edi Irby M.D. FCAP, FASCP Calcium [Mass/Vol] 8.7 mg/dL Normal 8.6-10.0 [facility] Comment on above: Performed By: #### L IVP6 #### [address] [id number] , Maribel PalenciaAP, FASCP Chloride [Moles/Vol] 94 mmol/L Low 98-107 [facility] Comment on above: Performed By: #### L IVP6 #### [address] [place] [address] , Edi Irby M.D. FCAP, FASCP CO2 [Moles/Vol] 26 mmol/L Normal 22-[address] [facility] Comment on above: Performed By: #### L IVP6 #### [address] [place] [address] , Edi Irby M.D. FCAP, FASCP Creatinine [Mass/Vol] 4.44 mg/dL High 0.67-1.17 [facility] Comment on above: Performed By: #### L IVP6 #### [address] [address] , Maribel PalenciaAP, FASCP GFR/1.73 sq M.predicted among non-blacks MDRD (S/P/Bld) [Vol rate/Area] 14 mL/min/{1.73_m2} Normal [facility] Comment on above: Result Comment: THE GFR IS ESTIMATED USING THE MDRD STUDY EQUATION. *NOTE* IF THE RACE OF THE PATIENT WAS UNKNOWN AT THE TIME OF REGISTRATION, AND THE PATIENT IS , MULTIPLY THE EGFR RESULT PROVIDED BY 1.21. EGFR <60.0 COULD BE ABNORMAL. Performed By: #### L IVP6 #### [address] [id number] , Edi Irby M.D. FCAP, FASCP Glucose [Mass/Vol] 62 mg/dL Low 70-100 [facility] Comment on above: Result Comment: INTR EPRETATION FOR FASTING BLOOD GLUCOSE: 70-100 mg/dl NORMAL GLUCOSE TOLERANCE 100-125 mg/dl IMPAIRED FASTING GLUCOSE (PRE-DIABETES) >125 mg/dl DIABETES - ON MORE THAN ONE TESTING Performed By: #### L IVP6 #### [address] [id number] , Maribel PalenciaAP, FASCP Potassium [Moles/Vol] 4.9 mmol/L Normal 3.6-5.0 [facility] Comment on above: Performed By: #### L IVP6 #### [address] [id number] , Maribel PalenciaAP, FASCP Sodium [Moles/Vol] 132 mmol/L Low 136-145 [facility] Comment on above: Performed By: #### L IVP6 #### [address] [id number] , Edi Irby M.D. FCAP, FASCP Urea nitrogen [Mass/Vol] 41.8 mg/dL High 6.0-20.[address] [facility] Comment on above: Performed By: #### L IVP6 #### [facility] [address] [place] [address] , Edi Irby M.D. FCAP, FASCP Basophils Auto (Bld) [#/Vol] Ordered By: ROBERTO QUEVEDO on 11-09-2022 Basophils (Bld) [#/Vol] 0.05 10:3/uL 0.0-0.2 [facility] Basophils/100 WBC Auto (Bld) Ordered By: ROBERTO QUEVEDO on 11-09-2022 Basophils/100 WBC (Bld) 0.4 % 0-1.0 [facility] Blood hemoglobin measurement (mass/volume)Ordered By: ROBERTO QUEVEDO on 11-09-2022 Hemoglobin (Bld) [Mass/Vol] 8.6 g/dL Low 13.3-17.7 [facility] CBC With Differentialon 10-14 Basophils Absolute Auto 0.05 10:3/uL Normal 0.0-0.[address] [facility] Comment on above: Performed By: #### L IVP6 #### [address] [address] , Edi Irby M.D. FCAP, FASCP Basophils/100 WBC (Bld) 0.4 % Normal 0-1.0 [facility] Comment on above: Performed By: #### L IVP6 #### [address] [address] , Edi Irby M.D. FCAP, FASCP Differential Type? Auto Differential Normal [facility] Comment on above: Performed By: #### L IVP6 #### [address] [address] , Edi Irby M.D. FCAP, FASCP Eosinophils Absolute Auto 0.21 10:3/uL Normal 0.0-0.[address] [facility] Comment on above: Performed By: #### L IVP6 #### [address] [id number] , Edi Irby M.D. FCAP, FASCP Eosinophils/100 WBC (Bld) 1.8 % Normal 0.0-3.[address] [facility] Comment on above: Performed By: #### L IVP6 #### [address] [id number] , Edi Irby M.D. FCAP, FASCP Hematocrit (Bld) [Volume fraction] 28.8 % Low 40.0-52.[address] [facility] Comment on above: Performed By: #### L IVP6 #### [address] [id number] , Edi Irby M.D. FCAP, FASCP Hemoglobin (Bld) [Mass/Vol] 8.6 g/dL Low 13.3-17.[address] [facility] Comment on above: Performed By: #### L IVP6 #### [address] [id number] , Edi Irby M.D. FCAP, FASCP Immature Gran Absolute Auto 0.05 10:3/uL Normal 0.01-0.[address] [facility] Comment on above: Performed By: #### L IVP6 #### [address] [id number] , Edi Irby M.D. FCAP, FASCP Immature granulocytes/100 WBC (Bld) 0.4 % Normal 0-0.[address] [facility] Comment on above: Performed By: #### L IVP6 #### [address] [id number] , Edi Irby M.D. FCAP, FASCP Lymphocytes Absolute Auto 1.78 10:3/uL Normal 1.5-4.[address] [facility] Comment on above: Performed By: #### L IVP6 #### [address] [id number] , Edi Irby M.D. FCAP, FASCP Lymphocytes/100 WBC (Bld) 15.1 % Low 20.0-40.[address] [facility] Comment on above: Performed By: #### L IVP6 #### [address] [id number] , Edi rIby M.D. FCAP, FASCP MCH (RBC) [Entitic mass] 24.8 pg Low 27.0-40.[address] [facility] Comment on above: Performed By: #### L IVP6 #### [address] [id number] , Edi Irby M.D. FCAP, FASCP Mean Corpusc Hgb Concentration 29.9 g/dL Low 31.0-36.[address] [facility] Comment on above: Performed By: #### L IVP6 #### [address] [id number] , Edi Irby M.D. FCAP, FASCP Mean Corpuscular Volume 83.0 CU uM Normal 80.0-100.0 [facility] Comment on above: Performed By: #### L IVP6 #### [address] [id number] , Edi Irby M.D. FCAP, FASCP Monocytes Absolute Auto 0.95 10:3/uL High 0.2-0.[address] [facility] Comment on above: Performed By: #### L IVP6 #### [address] [id number] , Edi Irby M.D. FCAP, FASCP Monocytes/100 WBC (Bld) 8.1 % Normal 4.0-10.0 [facility] Comment on above: Performed By: #### L IVP6 #### [address] [id number] , Edi Irby M.D. FCAP, FASCP Neutrophils Absolute Auto 8.73 10:3/uL High 2.0-7.[address] [facility] Comment on above: Performed By: #### L IVP6 #### [address] [id number] , Edi Irby M.D. FCAP, FASCP Neutrophils/100 WBC (Bld) 74.2 % High 54.0-62.[address] [facility] Comment on above: Performed By: #### L IVP6 #### [address] [id number] , Edi Irby M.D. FCAP, FASCP Nucleated RBC's % Auto 0.0 /100WBC Normal -0 [facility] Comment on above: Performed By: #### L IVP6 #### [address] [id number] , Edi Irby M.D. FCAP, FASCP Nucleated RBC's Absolute Auto 0.00 10:3/uL Normal -[address] [facility] Comment on above: Performed By: #### L IVP6 #### [address] [id number] , Edi Irby M.D. FCAP, FASCP Platelet Count 343 10:3/uL Normal 130-[address] [facility] Comment on above: Performed By: #### L IVP6 #### [address] [id number] , Edi Irby M.D. FCAP, FASCP Red Blood Cell Count 3.47 10:6/uL Low 4.40-5.90 [facility] Comment on above: Performed By: #### L IVP6 #### [facility] [address] [place] [address] , Edi Irby M.D. FCAP, FASCP Red Cell Distribution 15.2 High 11.5-14.5 [facility] Comment on above: Performed By: #### L IVP6 #### [facility] [address] [facility], [place] [id number] , Edi Irby M.D. FCAP, FASCP White Blood Cell Count 11.8 10:3/uL High 3.9-10.[address] [facility] Comment on above: Performed By: #### L IVP6 #### [facility] [address] [place] [address] , Edi Irby M.D. FCAP, FASCP Differential cell count meth od - BloodOrdered By: ROBERTO QUEVEDO on 11-09-2022 Differential cell count method Nom (Bld) Auto differential [facility] Eosinophils Auto (Bld) [#/Vo l]Ordered By: ROBERTO QUEVEDO on 11-09-2022 Eosinophils (Bld) [#/Vol] 0.21 10:3/uL 0.0-0.5 [facility] Eosinophils/100 WBC Auto (Bl d)Ordered By: ROBERTO QUEVEDO on 11-09-2022 Eosinophils/100 WBC (Bld) 1.8 % 0.0-3.0 [facility] Erythrocyte distribution wid th Auto (RBC) [Ratio]Ordered By: ROBERTO QUEVEDO on 11-09-2022 Erythrocyte distribution width (RBC) [Ratio] 15.2 % High 11.5-14.5 [facility] Glomerular filtration rate/1 .73 sq M.predicted [Volume Rate/Area] in Serum, Plasma orOrdered By: ROBERTO QUEVEDO on 11-09-2022 GFR/1.73 sq M.predicted (S/P/Bld) [Vol rate/Area] 14 mL/min [facility] Comment on above: EGFR <60.0 COULD BE ABNORMAL.THE GFR IS ESTIMATED USING THE MDRD STUDY EQUATION.*NOTE* IF THE RACE OF THE PATIENT WAS UNKNOWN AT THE TIME OFREGISTRATION, AND THE PATIENT IS , MULTIPLYTHE EGFR RESULT PROVIDED BY 1.21. Hematocrit Auto (Bld) [Volum e fraction]Ordered By: ROBERTO QUEVEDO on 11-09-2022 Hematocrit (Bld) [Volume fraction] 28.8 % Low 40.0-52.0 [facility] Immature granulocytes Auto ( Bld) [#/Vol]Ordered By: ROBERTO QUEVEDO on 11-09-2022 Immature granulocytes (Bld) [#/Vol] 0.05 10:3/uL 0.01-0.2 [facility] Immature granulocytes/100 WB C Auto (Bld)Ordered By: ROBERTO QUEVEDO on 11-09-2022 Immature granulocytes/100 WBC (Bld) 0.4 % 0-0.9 [facility] Lymphocytes Auto (Bld) [#/Vo l]Ordered By: ROBERTO QEUVEDO on 11-09-2022 Lymphocytes (Bld) [#/Vol] 1.78 10:3/uL 1.5-4.0 [facility] Lymphocytes/100 WBC Auto (Bl d)Ordered By: ROBERTO QUEVEDO on 11-09-2022 Lymphocytes/100 WBC (Bld) 15.1 % Low 20.0-40.0 [facility] MCH Auto (RBC) [Entitic mass ]Ordered By: ROBERTO QUEVEDO on 11-09-2022 MCH (RBC) [Entitic mass] 24.8 pg Low 27-40 [facility] MCHC Auto (RBC) [Mass/Vol]Or dered By: ROBERTO QUEVEDO on 11-09-2022 MCHC (RBC) [Mass/Vol] 29.9 g/dL Low 31-36 [facility] MCV Auto (RBC) [Entitic vol] Ordered By: ROBERTO QUEVEDO on 11-09-2022 MCV (RBC) [Entitic vol] 83.0 CU uM 80.0-100.0 M [facility] Monocytes Auto (Bld) [#/Vol] Ordered By: ROBERTO QUEVEDO on 11-09-2022 Monocytes (Bld) [#/Vol] 0.95 10:3/uL High 0.2-0.8 [facility] Monocytes/100 WBC Auto (Bld) Ordered By: ROBERTO QUEVEDO on 11-09-2022 Monocytes/100 WBC (Bld) 8.1 % 4.0-10.0 [facility] Neutrophils Auto (Bld) [#/Vo l]Ordered By: ROBERTO QUEVEDO on 11-09-2022 Neutrophils (Bld) [#/Vol] 8.73 10:3/uL High 2.0-7.0 [facility] Neutrophils/100 WBC Auto (Bl d)Ordered By: ROBERTO QUEVEDO on 11-09-2022 Neutrophils/100 WBC (Bld) 74.2 % High 54.0-62.0 [facility] Nucleated RBC Auto (Bld) [#/ Vol]Ordered By: ROBERTO QUEVEDO on 11-09-2022 Nucleated RBC (Bld) [#/Vol] 0.00 10:3/uL <0 [facility] Nucleated RBC/100 WBC Auto ( Bld) [Ratio]Ordered By: ROBERTO QUEVEDO on 11-09-2022 Nucleated RBC/100 WBC (Bld) [Ratio] 0.0 /100WBC <0 [facility] Platelets Auto (Bld) [#/Vol] Ordered By: ROBERTO QUEVEDO on 11-09-2022 Platelets (Bld) [#/Vol] 343 10:3/uL 130-440 [facility] RBC Auto (Bld) [#/Vol]Ordere d By: ROBERTO QUEVEDO on 11-09-2022 RBC (Bld) [#/Vol] 3.47 10:6/uL Low 4.40-5.[address] [facility] Serum or plasma anion gapOrd ered By: ROBERTO QUEVEDO on 11-09-2022 Anion gap [Moles/Vol] 12 mmol/L 9-15 [facility] Serum or plasma calcium zainab urement (mass/volume)Ordered By: ROBERTO QUEVEDO on 11-09-2022 Calcium [Mass/Vol] 8.7 mg/dL 8.6-10.0 [facility] Serum or plasma carbon dioxi de, total measurement (moles/volume)Ordered By: ROBERTO QUEVEDO on 11-09-2022 CO2 [Moles/Vol] 26 mmol/L [facility] Serum or plasma chloride eduardo surement (moles/volume)Ordered By: ROBERTO QUEVEDO on 11-09-2022 Chloride [Moles/Vol] 94 mmol/L Low 98-107 [facility] Serum or plasma creatinine m easurement (mass/volume)Ordered By: ROBERTO QUEVEDO on 11-09-2022 Creatinine [Mass/Vol] 4.44 mg/dL High 0.67-1.17 [facility] Serum or plasma glucose zainab urement (mass/volume)Ordered By: ROBERTO QUEVEDO on 11-09-2022 Glucose [Mass/Vol] 62 mg/dL Low 70-100 [facility] Comment on above: INTREPRETATION FOR F ASTING BLOOD GLUCOSE: 70-100 mg/dl NORMAL GLUCOSE [id number] mg/dl IMPAIRED FASTING GLUCOSE (PRE-DIABETES)>125 mg/dl DIABETES - ON MORE THAN ONE TESTING Serum or plasma potassium me asurement (moles/volume)Ordered By: ROBERTO QUEVEDO on 11-09-2022 Potassium [Moles/Vol] 4.9 mmol/L 3.6-5.0 [facility] Serum or plasma sodium measu rement (moles/volume)Ordered By: ROBERTO QUEVEDO on 11-09-2022 Sodium [Moles/Vol] 132 mmol/L Low 136-145 [facility] Serum or plasma urea nitroge n measurement (mass/volume)Ordered By: ROBERTO QUEVEDO on 11-09-2022 Urea nitrogen [Mass/Vol] 41.8 mg/dL High 6.0-20.0 [facility] WBC Auto (Bld) [#/Vol]Ordere d By: ROBERTO QUEVEDO on 11-09-2022 WBC (Bld) [#/Vol] 11.8 10:3/uL High 3.9-10.[address] [facility] Basic Metabolic Panelon 04-2 Anion gap [Moles/Vol] 19 mmol/L High 9-15 [facility] Comment on above: Performed By: #### C HEM7, CP1 #### [address] [id number] , Edi Irby M.D. FCAP, FASCP Calcium [Mass/Vol] 8.7 mg/dL Normal 8.6-10.0 [facility] Comment on above: Performed By: #### Garrett HEM7, CP1 #### [address] [id number] , Edi Irby M.D. FCAP, FASCP Chloride [Moles/Vol] 92 mmol/L Low 98-107 [facility] Comment on above: Performed By: #### Garrett HEM7, CP1 #### [address] [id number] , Edi Irby M.D. FCAP, FASCP CO2 [Moles/Vol] 24 mmol/L Normal 22-[address] [facility] Comment on above: Performed By: #### Garrett HEMHallie, CP1 #### [address] [id number] , Maribel PalenciaAP, FASCP Creatinine [Mass/Vol] 4.45 mg/dL High 0.67-1.17 [facility] Comment on above: Performed By: #### Garrett HEMHallie, CP1 #### [address] [id number] , Edi Irby M.D. FCAP, FASCP GFR/1.73 sq M.predicted among non-blacks MDRD (S/P/Bld) [Vol rate/Area] 14 mL/min/{1.73_m2} Normal [facility] Comment on above: Result Comment: THE GFR IS ESTIMATED USING THE MDRD STUDY EQUATION. *NOTE* IF THE RACE OF THE PATIENT WAS UNKNOWN AT THE TIME OF REGISTRATION, AND THE PATIENT IS , MULTIPLY THE EGFR RESULT PROVIDED BY 1.21. EGFR <60.0 COULD BE ABNORMAL. Performed By: #### C HEM7, CP1 #### [address] [id number] , Edi Irby M.D. FCAP, FASCP Glucose [Mass/Vol] 55 mg/dL Low 70-100 [facility] Comment on above: Result Comment: INTR EPRETATION FOR FASTING BLOOD GLUCOSE: 70-100 mg/dl NORMAL GLUCOSE TOLERANCE 100-125 mg/dl IMPAIRED FASTING GLUCOSE (PRE-DIABETES) >125 mg/dl DIABETES - ON MORE THAN ONE TESTING Performed By: #### C HEM7, CP1 #### [address] [id number] , Edi Irby M.D. FCAP, FASCP Potassium [Moles/Vol] 5.6 mmol/L High 3.6-5.0 [facility] Comment on above: Performed By: #### C HEM7, CP1 #### [address] [id number] , Maribel PalenciaAP, FASCP Sodium [Moles/Vol] 135 mmol/L Low 136-145 [facility] Comment on above: Performed By: #### Garrett HEM7, CP1 #### [address] [address] , Edi Irby M.D. FCAP, FASCP Urea nitrogen [Mass/Vol] 42.3 mg/dL High 6.0-20.[address] [facility] Comment on above: Performed By: #### Garrett HEM7, CP1 #### [address] [address] , Edi Irby M.D. FCAP, FASCP Basophils Auto (Bld) [#/Vol] Ordered By: KIM QUEVEDO on 11-02-2022 Basophils (Bld) [#/Vol] 0.00 10:3/uL 0.0-0.2 [facility] Basophils/100 WBC Auto (Bld) Ordered By: KIM QUEVEDO on 11-02-2022 Basophils/100 WBC (Bld) 0.4 % 0-1.0 [facility] Blood hemoglobin measurement (mass/volume)Ordered By: KIM QUEVEDO on 11-02-2022 Hemoglobin (Bld) [Mass/Vol] 9.0 g/dL Low 13.3-17.7 [facility] CBC With Differentialon 10-14 Basophils/100 WBC (Bld) 0.4 % Normal 0-1.0 [facility] Comment on above: Performed By: #### L IVP6 #### [facility] [address] [place] [id number] , Edi Irby M.D. FCAP, FASCP Eosinophils/100 WBC (Bld) 0.9 % Normal 0.0-3.[address] [facility] Comment on above: Performed By: #### L IVP6 #### [address] [id number] , Edi Irby M.D. FCAP, FASCP Immature Gran Absolute Auto 0.06 10:3/uL Normal 0.01-0.[address] [facility] Comment on above: Performed By: #### L IVP6 #### [facility] [address] [place] [address] [id number] , Edi Irby M.D. FCAP, FASCP Immature granulocytes/100 WBC (Bld) 0.5 % Normal 0-0.[address] [facility] Comment on above: Performed By: #### L IVP6 #### [facility] [address] [place] [id number] , Edi Irby M.D. FCAP, FASCP Cholesterol in LDL Calc [Mas s/Vol]Ordered By: KIM QUEVEDO on 11-02-2022 Cholesterol in LDL [Mass/Vol] 42 mg/dL <100 [facility] Differential cell count meth od - BloodOrdered By: KIM QUEVEDO on 11-02-2022 Differential cell count method Nom (Bld) Manual differential [facility] Eosinophils Auto (Bld) [#/Vo l]Ordered By: KIM QUEVEDO on 11-02-2022 Eosinophils (Bld) [#/Vol] 0.00 10:3/uL 0.0-0.5 [facility] Eosinophils/100 WBC Auto (Bl d)Ordered By: KIM QUEVEDO on 11-02-2022 Eosinophils/100 WBC (Bld) 0.9 % 0.0-3.0 [facility] Erythrocyte distribution wid th Auto (RBC) [Ratio]Ordered By: KIM QUEVEDO on 11-02-2022 Erythrocyte distribution width (RBC) [Ratio] 15.7 % High 11.5-14.5 [facility] Hematocrit Auto (Bld) [Volum e fraction]Ordered By: KIM QUEVEDO on 11-02-2022 Hematocrit (Bld) [Volume fraction] 31.3 % Low 40.0-52.0 [facility] Immature granulocytes Auto ( Bld) [#/Vol]Ordered By: KIM QUEVEDO on 11-02-2022 Immature granulocytes (Bld) [#/Vol] 0.06 10:3/uL 0.01-0.2 [facility] Immature granulocytes/100 WB C Auto (Bld)Ordered By: KIM QUEVEDO on 11-02-2022 Immature granulocytes/100 WBC (Bld) 0.5 % 0-0.9 [facility] - Chemistry and C hemistry - challengeOrdered By: KIM QUEVEDO on 11-02-2022 GFR/1.73 sq M.predicted among non-blacks MDRD (S/P/Bld) [Vol rate/Area] 14 mL/min/{1.73_m2} [facility] Comment on above: EGFR <60.0 COULD BE ABNORMAL.THE GFR IS ESTIMATED USING THE MDRD STUDY EQUATION.*NOTE* IF THE RACE OF THE PATIENT WAS UNKNOWN AT THE TIME OFREGISTRATION, AND THE PATIENT IS , MULTIPLYTHE EGFR RESULT PROVIDED BY 08.04. Lipid Profile Fastingon 10-14 Cholesterol [Mass/Vol] 90 mg/dL Normal 0-199 [facility] Comment on above: Performed By: #### C HEM7, CP1 #### [address] [id number] , Edi Irby M.D. FCAP, FASCP HDL Cholesterol Fasting 32 mg/dL Low >60 M [facility] Comment on above: Performed By: #### C HEM7, CP1 #### [address] [id number] , Maribel PalenciaAP, FASCP LDL Cholesterol (CALC) Fasting 42 mg/dL Normal <[address] [facility] Comment on above: Performed By: #### Garrett HEM7, CP1 #### [address] [address] , Edi Irby M.D. FCAP, FASCP Risk Ratio Fasting 2.81 Normal [facility] Comment on above: Result Comment: RISK NORMALS MEN WOMEN 1/[address] 23[address]39 11.04 TRIGLYCERIDES >400 MG/DL MAY CAUSE INCONSISTENCIES IN THE LDL. Performed By: #### Garrett HEM7, CP1 #### [address] [id number] , Maribel PalenciaAP, FASCP Triglycerides Fasting 79 mg/dL Normal <150 [facility] Comment on above: Performed By: #### Garrett HEM7, CP1 #### [address] [address] , Edi Irby M.D. FCAP, FASCP Lymphocytes Auto (Bld) [#/Vo l]Ordered By: KIM QUEVEDO on 11-02-2022 Lymphocytes (Bld) [#/Vol] 1.25 10:3/uL Low 1.5-4.0 [facility] Lymphocytes/100 WBC Auto (Bl d)Ordered By: KIM QUEVEDO on 11-02-2022 Lymphocytes/100 WBC (Bld) 11.0 % Low 20.0-40.0 [facility] MCH Auto (RBC) [Entitic mass ]Ordered By: KIM QUEVEDO on 11-02-2022 MCH (RBC) [Entitic mass] 24.1 pg Low 27-40 [facility] MCHC Auto (RBC) [Mass/Vol]Or dered By: KIM QUEVEDO on 11-02-2022 MCHC (RBC) [Mass/Vol] 28.8 g/dL Low 31-36 [facility] MCV Auto (RBC) [Entitic vol] Ordered By: KIM QUEVEDO on 11-02-2022 MCV (RBC) [Entitic vol] 83.9 CU uM 80.0-100.0 [facility] Monocytes Auto (Bld) [#/Vol] Ordered By: KIM QUEVEDO on 11-02-2022 Monocytes (Bld) [#/Vol] 0.79 10:3/uL 0.2-0.8 [facility] Monocytes/100 WBC Auto (Bld) Ordered By: KIM QUEVEDO on 11-02-2022 Monocytes/100 WBC (Bld) 7.0 % 4.0-10.0 [facility] Neutrophils Auto (Bld) [#/Vo l]Ordered By: KIM QUEVEDO on 11-02-2022 Neutrophils (Bld) [#/Vol] 9.34 10:3/uL High 2.0-7.0 [facility] Neutrophils/100 WBC Auto (Bl d)Ordered By: KIM QUEVEDO on 11-02-2022 Neutrophils/100 WBC (Bld) 82.0 % High 54.0-62.0 [facility] Nucleated RBC Auto (Bld) [#/ Vol]Ordered By: KIM QUEVEDO on 11-02-2022 Nucleated RBC (Bld) [#/Vol] 0.00 10:3/uL <0 [facility] Nucleated RBC/100 WBC Auto ( Bld) [Ratio]Ordered By: KIM QUEVEDO on 11-02-2022 Nucleated RBC/100 WBC (Bld) [Ratio] 0.0 /100WBC <0 [facility] Platelets Auto (Bld) [#/Vol] Ordered By: KIM QUEVEDO on 11-02-2022 Platelets (Bld) [#/Vol] 351 10:3/uL 130-440 [facility] RBC Auto (Bld) [#/Vol]Ordere d By: KIM QUEVEDO on 11-02-2022 RBC (Bld) [#/Vol] 3.73 10:6/uL Low 4.40-5.[address] [facility] Serum or plasma anion gapOrd ered By: KIM QUEVEDO on 11-02-2022 Anion gap [Moles/Vol] 19 mmol/L High 9-15 [facility] Serum or plasma calcium zainab urement (mass/volume)Ordered By: KIM QUEVEDO on 11-02-2022 Calcium [Mass/Vol] 8.7 mg/dL 8.6-10.0 [facility] Serum or plasma carbon dioxi de, total measurement (moles/volume)Ordered By: KIM QUEVEDO on 11-02-2022 CO2 [Moles/Vol] 24 mmol/L 22- [facility] Serum or plasma cardiac hear t disease risk ratioOrdered By: KIM QUEVEDO on 11-02-2022 Cardiac heart disease risk [Ratio] 2.81 [facility] Comment on above: RISK NORMALS MEN WOM EN1/[address] 23[address]39 11.04 TRIGLYCERIDES >400 MG/DL MAY CAUSE INCONSISTENCIES IN THE LDL. Serum or plasma chloride eduardo surement (moles/volume)Ordered By: KIM QUEVEDO on 11-02-2022 Chloride [Moles/Vol] 92 mmol/L Low 98-107 [facility] Serum or plasma cholesterol measurement (mass/volume)Ordered By: KIM QUEVEDO on 11-02-2022 Cholesterol [Mass/Vol] 90 mg/dL 0-199 [facility] Serum or plasma creatinine m easurement (mass/volume)Ordered By: KIM QUEVEDO on 11-02-2022 Creatinine [Mass/Vol] 4.45 mg/dL High 0.67-1.17 [facility] Serum or plasma glucose zainab urement (mass/volume)Ordered By: KIM QUEVEDO on 11-02-2022 Glucose [Mass/Vol] 55 mg/dL Low 70-100 [facility] Comment on above: INTREPRETATION FOR F ASTING BLOOD GLUCOSE: 70-100 mg/dl NORMAL GLUCOSE [id number] mg/dl IMPAIRED FASTING GLUCOSE (PRE-DIABETES)>125 mg/dl DIABETES - ON MORE THAN ONE TESTING Serum or plasma high density lipoprotein (HDL) cholesterol measurementOrdered By: KIM QUEVEDO on 11-02-2022 Cholesterol in HDL [Mass/Vol] 32 mg/dL Low >61 [facility] Serum or plasma potassium me asurement (moles/volume)Ordered By: KIM QUEVEDO on 11-02-2022 Potassium [Moles/Vol] 5.6 mmol/L High 3.6-5.0 [facility] Serum or plasma sodium measu rement (moles/volume)Ordered By: KIM QUEVEDO on 11-02-2022 Sodium [Moles/Vol] 135 mmol/L Low 136-145 [facility] Serum or plasma triglyceride measurement (mass/volume)Ordered By: KIM QUEVEDO on 11-02-2022 Triglyceride [Mass/Vol] 79 mg/dL <150 [facility] Serum or plasma urea nitroge n measurement (mass/volume)Ordered By: KIM QUEVEDO on 11-02-2022 Urea nitrogen [Mass/Vol] 42.3 mg/dL High 6.0-20.0 [facility] WBC Auto (Bld) [#/Vol]Ordere d By: KIM QUEVEDO on 11-02-2022 WBC (Bld) [#/Vol] 11.4 10:3/uL High 3.9-10.[address] [facility] Basic Metabolic Panelon 10-13 Anion gap [Moles/Vol] 13 mmol/L Normal 9-15 [facility] Comment on above: Performed By: #### C BCD #### [facility] [address], [place] [id number] , Edi Irby M.D. FCAP, FASCP Calcium [Mass/Vol] 8.8 mg/dL Normal 8.6-10.0 [facility] Comment on above: Performed By: #### C BCD #### [facility] [address], [place] [id number] , Edi Irby M.D. FCAP, FASCP Chloride [Moles/Vol] 92 mmol/L Low 98-107 [facility] Comment on above: Performed By: #### C BCD #### [address] [id number] , Edi Irby M.D. FCAP, FASCP CO2 [Moles/Vol] 27 mmol/L Normal 22-[address] [facility] Comment on above: Performed By: #### C BCD #### [address] [id number] , Edi Irby M.D. FCAP, FASCP Creatinine [Mass/Vol] 3.60 mg/dL High 0.67-1.17 [facility] Comment on above: Performed By: #### C BCD #### [address] [id number] , Edi Irby M.D. FCAP, FASCP GFR/1.73 sq M.predicted among non-blacks MDRD (S/P/Bld) [Vol rate/Area] 18 mL/min/{1.73_m2} Normal [facility] Comment on above: Result Comment: THE GFR IS ESTIMATED USING THE MDRD STUDY EQUATION. *NOTE* IF THE RACE OF THE PATIENT WAS UNKNOWN AT THE TIME OF REGISTRATION, AND THE PATIENT IS , MULTIPLY THE EGFR RESULT PROVIDED BY 1.21. EGFR <60.0 COULD BE ABNORMAL. Performed By: #### C BCD #### [address] [id number] , Edi Irby M.D. FCAP, FASCP Glucose [Mass/Vol] 61 mg/dL Low 70-100 [facility] Comment on above: Result Comment: INTR EPRETATION FOR FASTING BLOOD GLUCOSE: 70-100 mg/dl NORMAL GLUCOSE TOLERANCE 100-125 mg/dl IMPAIRED FASTING GLUCOSE (PRE-DIABETES) >125 mg/dl DIABETES - ON MORE THAN ONE TESTING Performed By: #### C BCD #### [facility] [address], [place] [phone] , Edi Irby M.D. FCAP, FASCP Potassium [Moles/Vol] 4.8 mmol/L Normal 3.6-5.0 [facility] Comment on above: Result Comment: HEMO LYSIS PRESENT. INTERPRET RESULT WITH CAUTION. Performed By: #### C BCD #### [address] [id number] , Edi Irby M.D. FCAP, FASCP Sodium [Moles/Vol] 132 mmol/L Low 136-145 [facility] Comment on above: Performed By: #### C BCD #### [address] [address] , Edi Irby M.D. FCAP, FASCP Urea nitrogen [Mass/Vol] 29.3 mg/dL High 6.0-20.[address] [facility] Comment on above: Performed By: #### C BCD #### [address] [address] , Edi Irby M.D. FCAP, FASCP Basophils Auto (Bld) [#/Vol] Ordered By: KIM QUEVEDO on 10-26-2022 Basophils (Bld) [#/Vol] 0.05 10:3/uL 0.0-0.2 [facility] Basophils/100 WBC Auto (Bld) Ordered By: KIM QUEVEDO on 10-26-2022 Basophils/100 WBC (Bld) 0.6 % 0-1.0 [facility] Blood hemoglobin measurement (mass/volume)Ordered By: KIM QUEVEDO on 10-26-2022 Hemoglobin (Bld) [Mass/Vol] 8.9 g/dL Low 13.3-17.7 [facility] CBC With Differentialon 10-13 Basophils Absolute Auto 0.05 10:3/uL Normal 0.0-0.[address] [facility] Comment on above: Performed By: #### L IVP6 #### [address] [id number] , Edi Irby M.D. FCAP, FASCP Basophils/100 WBC (Bld) 0.6 % Normal 0-1.0 [facility] Comment on above: Performed By: #### L IVP6 #### [address] [id number] , Edi Irby M.D. FCAP, FASCP Differential Type? Auto Differential Normal [facility] Comment on above: Performed By: #### L IVP6 #### [address] [id number] , Edi Irby M.D. FCAP, FASCP Eosinophils Absolute Auto 0.09 10:3/uL Normal 0.0-0.[address] [facility] Comment on above: Performed By: #### L IVP6 #### [address] [id number] , Edi Irby M.D. FCAP, FASCP Eosinophils/100 WBC (Bld) 1.0 % Normal 0.0-3.[address] [facility] Comment on above: Performed By: #### L IVP6 #### [address] [id number] , Edi Irby M.D. FCAP, FASCP Hematocrit (Bld) [Volume fraction] 30.0 % Low 40.0-52.[address] [facility] Comment on above: Performed By: #### L IVP6 #### [address] [id number] , Edi Irby M.D. FCAP, FASCP Hemoglobin (Bld) [Mass/Vol] 8.9 g/dL Low 13.3-17.[address] [facility] Comment on above: Performed By: #### L IVP6 #### [address] [id number] , Edi Irby M.D. FCAP, FASCP Immature Gran Absolute Auto 0.05 10:3/uL Normal 0.01-0.[address] [facility] Comment on above: Performed By: #### L IVP6 #### [address] [id number] , Edi Irby M.D. FCAP, FASCP Immature granulocytes/100 WBC (Bld) 0.6 % Normal 0-0.[address] [facility] Comment on above: Performed By: #### L IVP6 #### [address] [id number] , Edi Irby M.D. FCAP, FASCP Lymphocytes Absolute Auto 1.43 10:3/uL Low 1.5-4.[address] [facility] Comment on above: Performed By: #### L IVP6 #### [address] [id number] , Edi Irby M.D. FCAP, FASCP Lymphocytes/100 WBC (Bld) 16.6 % Low 20.0-40.[address] [facility] Comment on above: Performed By: #### L IVP6 #### [address] [id number] , Edi Irby M.D. FCAP, FASCP MCH (RBC) [Entitic mass] 24.8 pg Low 27.0-40.[address] [facility] Comment on above: Performed By: #### L IVP6 #### [address] [id number] , Edi Irby M.D. FCAP, FASCP Mean Corpusc Hgb Concentration 29.7 g/dL Low 31.0-36.[address] [facility] Comment on above: Performed By: #### L IVP6 #### [address] [id number] , Edi Irby M.D. FCAP, FASCP Mean Corpuscular Volume 83.6 CU uM Normal 80.0-100.0 [facility] Comment on above: Performed By: #### L IVP6 #### [address] [id number] , Edi Irby M.D. FCAP, FASCP Monocytes Absolute Auto 0.89 10:3/uL High 0.2-0.[address] [facility] Comment on above: Performed By: #### L IVP6 #### [address] [id number] , Edi Irby M.D. FCAP, FASCP Monocytes/100 WBC (Bld) 10.3 % High 4.0-10.0 [facility] Comment on above: Performed By: #### L IVP6 #### [address] [id number] , Edi Irby M.D. FCAP, FASCP Neutrophils Absolute Auto 6.11 10:3/uL Normal 2.0-7.[address] [facility] Comment on above: Performed By: #### L IVP6 #### [address] [id number] , Edi Irby M.D. FCAP, FASCP Neutrophils/100 WBC (Bld) 70.9 % High 54.0-62.[address] [facility] Comment on above: Performed By: #### L IVP6 #### [address] [id number] , Edi Irby M.D. FCAP, FASCP Nucleated RBC's % Auto 0.0 /100WBC Normal -0 [facility] Comment on above: Performed By: #### L IVP6 #### [address] [id number] , Edi Irby M.D. FCAP, FASCP Nucleated RBC's Absolute Auto 0.00 10:3/uL Normal -[address] [facility] Comment on above: Performed By: #### L IVP6 #### [address] [id number] , Edi Irby M.D. FCAP, FASCP Platelet Count 372 10:3/uL Normal 130-[address] [facility] Comment on above: Performed By: #### L IVP6 #### [address] [address] , Edi Irby M.D. FCAP, FASCP Red Blood Cell Count 3.59 10:6/uL Low 4.40-5.90 [facility] Comment on above: Performed By: #### L IVP6 #### [address] [address] , Edi Irby M.D. FCAP, FASCP Red Cell Distribution 15.9 High 11.5-14.5 [facility] Comment on above: Performed By: #### L IVP6 #### [address] [id number] , Edi J. Macatol, M.D. FCAP, FASCP White Blood Cell Count 8.6 10:3/uL Normal 3.9-10.6 [facility] Comment on above: Performed By: #### L IVP6 #### [facility] [address] [place] [address] , Edi Irby M.D. FCAP, FASCP Differential cell count meth od - BloodOrdered By: KIM QUEVEDO on 10-26-2022 Differential cell count method Nom (Bld) Auto differential [facility] Eosinophils Auto (Bld) [#/Vo l]Ordered By: KIM QUEVEDO on 10-26-2022 Eosinophils (Bld) [#/Vol] 0.09 10:3/uL 0.0-0.5 [facility] Eosinophils/100 WBC Auto (Bl d)Ordered By: KIM QUEVEDO on 10-26-2022 Eosinophils/100 WBC (Bld) 1.0 % 0.0-3.0 [facility] Erythrocyte distribution wid th Auto (RBC) [Ratio]Ordered By: KIM QUEVEDO on 10-26-2022 Erythrocyte distribution width (RBC) [Ratio] 15.9 % High 11.5-14.5 [facility] Hematocrit Auto (Bld) [Volum e fraction]Ordered By: KIM QUEVEDO on 10-26-2022 Hematocrit (Bld) [Volume fraction] 30.0 % Low 40.0-52.0 [facility] Immature granulocytes Auto ( Bld) [#/Vol]Ordered By: KIM QUEVEDO on 10-26-2022 Immature granulocytes (Bld) [#/Vol] 0.05 10:3/uL 0.01-0.2 [facility] Immature granulocytes/100 WB C Auto (Bld)Ordered By: KIM QUEVEDO on 10-26-2022 Immature granulocytes/100 WBC (Bld) 0.6 % 0-0.9 [facility] - Chemistry and C hemistry - challengeOrdered By: KIM QUEVEDO on 10-26-2022 GFR/1.73 sq M.predicted among non-blacks MDRD (S/P/Bld) [Vol rate/Area] 18 mL/min/{1.73_m2} [facility] Comment on above: EGFR <60.0 COULD BE ABNORMAL.THE GFR IS ESTIMATED USING THE MDRD STUDY EQUATION.*NOTE* IF THE RACE OF THE PATIENT WAS UNKNOWN AT THE TIME OFREGISTRATION, AND THE PATIENT IS , MULTIPLYTHE EGFR RESULT PROVIDED BY 1.21. Lymphocytes Auto (Bld) [#/Vo l]Ordered By: KIM QUEVEDO on 10-26-2022 Lymphocytes (Bld) [#/Vol] 1.43 10:3/uL Low 1.5-4.0 [facility] Lymphocytes/100 WBC Auto (Bl d)Ordered By: KIM QUEVEDO on 10-26-2022 Lymphocytes/100 WBC (Bld) 16.6 % Low 20.0-40.0 [facility] MCH Auto (RBC) [Entitic mass ]Ordered By: KIM QUEVEDO on 10-26-2022 MCH (RBC) [Entitic mass] 24.8 pg Low 27-40 [facility] MCHC Auto (RBC) [Mass/Vol]Or dered By: KIM QUEVEDO on 10-26-2022 MCHC (RBC) [Mass/Vol] 29.7 g/dL Low 31-36 [facility] MCV Auto (RBC) [Entitic vol] Ordered By: KIM QUEVEDO on 10-26-2022 MCV (RBC) [Entitic vol] 83.6 CU uM 80.0-100.0 [facility] Monocytes Auto (Bld) [#/Vol] Ordered By: KIM QUEVEDO on 10-26-2022 Monocytes (Bld) [#/Vol] 0.89 10:3/uL High 0.2-0.8 [facility] Monocytes/100 WBC Auto (Bld) Ordered By: KIM QUEVEDO on 10-26-2022 Monocytes/100 WBC (Bld) 10.3 % High 4.0-10.0 [facility] Neutrophils Auto (Bld) [#/Vo l]Ordered By: KIM QUEVEDO on 10-26-2022 Neutrophils (Bld) [#/Vol] 6.11 10:3/uL 2.0-7.0 [facility] Neutrophils/100 WBC Auto (Bl d)Ordered By: KIM QUEVEDO on 10-26-2022 Neutrophils/100 WBC (Bld) 70.9 % High 54.0-62.0 [facility] Nucleated RBC Auto (Bld) [#/ Vol]Ordered By: KIM QUEVEDO on 10-26-2022 Nucleated RBC (Bld) [#/Vol] 0.00 10:3/uL <0 [facility] Nucleated RBC/100 WBC Auto ( Bld) [Ratio]Ordered By: KIM QUEVEDO on 10-26-2022 Nucleated RBC/100 WBC (Bld) [Ratio] 0.0 /100WBC <0 [facility] Platelets Auto (Bld) [#/Vol] Ordered By: KIM QUEVEDO on 10-26-2022 Platelets (Bld) [#/Vol] 372 10:3/uL 130-440 [facility] RBC Auto (Bld) [#/Vol]Ordere d By: KIM QUEVEDO on 10-26-2022 RBC (Bld) [#/Vol] 3.59 10:6/uL Low 4.40-5.[address] [facility] Serum or plasma anion gapOrd ered By: IKM QUEVEDO on 10-26-2022 Anion gap [Moles/Vol] 13 mmol/L 9-15 [facility] Serum or plasma calcium zainab urement (mass/volume)Ordered By: KIM QUEVEDO on 10-26-2022 Calcium [Mass/Vol] 8.8 mg/dL 8.6-10.0 [facility] Serum or plasma carbon dioxi de, total measurement (moles/volume)Ordered By: KIM QUEVEDO on 10-26-2022 CO2 [Moles/Vol] 27 mmol/L 22- [facility] Serum or plasma chloride eduardo surement (moles/volume)Ordered By: KIM QUEVEDO on 10-26-2022 Chloride [Moles/Vol] 92 mmol/L Low 98-107 [facility] Serum or plasma creatinine m easurement (mass/volume)Ordered By: KIM QUEVEDO on 10-26-2022 Creatinine [Mass/Vol] 3.60 mg/dL High 0.67-1.17 [facility] Serum or plasma glucose zainab urement (mass/volume)Ordered By: KIM QUEVEDO on 10-26-2022 Glucose [Mass/Vol] 61 mg/dL Low 70-100 [facility] Comment on above: INTREPRETATION FOR F ASTING BLOOD GLUCOSE: 70-100 mg/dl NORMAL GLUCOSE [id number] mg/dl IMPAIRED FASTING GLUCOSE (PRE-DIABETES)>125 mg/dl DIABETES - ON MORE THAN ONE TESTING Serum or plasma potassium me asurement (moles/volume)Ordered By: KIM QUEVEDO on 10-26-2022 Potassium [Moles/Vol] 4.8 mmol/L 3.6-5.0 [facility] Comment on above: HEMOLYSIS PRESENT. I NTERPRET RESULT WITH CAUTION. Serum or plasma sodium measu rement (moles/volume)Ordered By: KIM QUEVEDO on 10-26-2022 Sodium [Moles/Vol] 132 mmol/L Low 136-145 [facility] Serum or plasma urea nitroge n measurement (mass/volume)Ordered By: KIM QUEVEDO on 10-26-2022 Urea nitrogen [Mass/Vol] 29.3 mg/dL High 6.0-20.0 [facility] WBC Auto (Bld) [#/Vol]Ordere d By: KIM QUEVEDO on 10-26-2022 WBC (Bld) [#/Vol] 8.6 10:3/uL 3.9-10.6 [facility] Basic Metabolic Panelon 04 Anion gap [Moles/Vol] 16 mmol/L High 9-15 [facility] Comment on above: Performed By: #### C BCD #### [facility] [address] [place] [address] , Edi Irby M.D. FCAP, FASCP Calcium [Mass/Vol] 8.9 mg/dL Normal 8.6-10.0 [facility] Comment on above: Performed By: #### C BCD #### [facility] [address] [place] [address] , Edi J. Macatol, M.D. FCAP, FASCP Chloride [Moles/Vol] 91 mmol/L Low 98-107 [facility] Comment on above: Performed By: #### C BCD #### [facility] [address] [place] [address] , Edi Irby M.D. FCAP, FASCP CO2 [Moles/Vol] 24 mmol/L Normal 22-[address] [facility] Comment on above: Performed By: #### C BCD #### [address] [address] , Edi Irby M.D. FCAP, FASCP Creatinine [Mass/Vol] 5.30 mg/dL High 0.67-1.17 [facility] Comment on above: Performed By: #### C BCD #### [address] [address] , Edi Irby M.D. FCAP, FASCP GFR/1.73 sq M.predicted among non-blacks MDRD (S/P/Bld) [Vol rate/Area] 12 mL/min/{1.73_m2} Normal [facility] Comment on above: Result Comment: THE GFR IS ESTIMATED USING THE MDRD STUDY EQUATION. *NOTE* IF THE RACE OF THE PATIENT WAS UNKNOWN AT THE TIME OF REGISTRATION, AND THE PATIENT IS , MULTIPLY THE EGFR RESULT PROVIDED BY 1.21. EGFR <60.0 COULD BE ABNORMAL. Performed By: #### C BCD #### [address] [address] , Edi Irby M.D. FCAP, FASCP Glucose [Mass/Vol] 71 mg/dL Normal 70-100 [facility] Comment on above: Result Comment: INTR EPRETATION FOR FASTING BLOOD GLUCOSE: 70-100 mg/dl NORMAL GLUCOSE TOLERANCE 100-125 mg/dl IMPAIRED FASTING GLUCOSE (PRE-DIABETES) >125 mg/dl DIABETES - ON MORE THAN ONE TESTING Performed By: #### C BCD #### [address] [place], [place] [id number] , Edi Irby M.D. FCAP, FASCP Potassium [Moles/Vol] 6.1 mmol/L High 3.6-5.0 [facility] Comment on above: Result Comment: HEMO LYSIS PRESENT. INTERPRET RESULT WITH CAUTION. Performed By: #### C BCD #### [facility] [address], [place] [id number] , Edi Irby M.D. FCAP, FASCP Sodium [Moles/Vol] 131 mmol/L Low 136-145 [facility] Comment on above: Performed By: #### C BCD #### [facility] [address], [place] [id number] , Edi Irby M.D. FCAP, FASCP Urea nitrogen [Mass/Vol] 47.7 mg/dL High 6.0-20.[address] [facility] Comment on above: Performed By: #### C BCD #### [facility] [address], [place] [id number] , Edi Irby M.D. FCAP, FASCP Blood erythrocytes count (nu mber/volume)Ordered By: KIM QUEVEDO on 10-22-2022 RBC (Bld) [#/Vol] 3.65 10:6/uL Low 4.40-5.[address] [facility] Blood hemoglobin measurement (mass/volume)Ordered By: KIM QUEVEDO on 10-22-2022 Hemoglobin (Bld) [Mass/Vol] 9.0 g/dL Low 13.3-17.7 [facility] Blood leukocytes count (numb er/volume)Ordered By: KIM QUEVEDO on 10-22-2022 WBC (Bld) [#/Vol] 9.3 10:3/uL 3.9-10.6 [facility] Blood platelet countOrdered By: KIM QUEVEDO on 10-22-2022 Platelets (Bld) [#/Vol] 430 10:3/uL 130-440 [facility] Complete Blood Counton 10-22 Hematocrit (Bld) [Volume fraction] 30.5 % Low 40.0-52.[address] [facility] Comment on above: Performed By: #### C BCD #### [address] [id number] , Edi Irby M.D. FCAP, FASCP Hemoglobin (Bld) [Mass/Vol] 9.0 g/dL Low 13.3-17.[address] [facility] Comment on above: Performed By: #### C BCD #### [address] [id number] , Edi Irby M.D. FCAP, FASCP MCH (RBC) [Entitic mass] 24.7 pg Low 27.0-40.[address] [facility] Comment on above: Performed By: #### C BCD #### [address] [id number] , Maribel PalenciaAP, FASCP Mean Corpusc Hgb Concentration 29.5 g/dL Low 31.0-36.[address] [facility] Comment on above: Performed By: #### C BCD #### [address] [id number] , Edi Irby M.D. FCAP, FASCP Mean Corpuscular Volume 83.6 CU uM Normal 80.0-100.0 [facility] Comment on above: Performed By: #### C BCD #### [address] [id number] , Edi Irby M.D. FCAP, FASCP Platelet Count 430 10:3/uL Normal 130-[address] [facility] Comment on above: Performed By: #### C BCD #### [address] [id number] , Edi Irby M.D. FCAP, FASCP Red Blood Cell Count 3.65 10:6/uL Low 4.40-5.90 [facility] Comment on above: Performed By: #### C BCD #### [facility] [address] [place] [address] , Edi Irby M.D. FCAP, FASCP Red Cell Distribution 15.8 High 11.5-14.5 [facility] Comment on above: Performed By: #### C BCD #### [facility] [address] [place] [address] , Edi Irby M.D. FCAP, FASCP White Blood Cell Count 9.3 10:3/uL Normal 3.9-10.6 [facility] Comment on above: Performed By: #### C BCD #### [facility] [address] [place] [address] , Edi Irby M.D. FCAP, FASCP Determination of erythrocyte mean corpuscular volume (MCV)Ordered By: KIM QUEVEDO on 10-22-2022 MCV (RBC) [Entitic vol] 83.6 CU uM 80.0-100.0 [facility] Erythrocyte distribution wid th standard deviationOrdered By: KIM QUEVEDO on 10-22-2022 Erythrocyte distribution width (RBC) [Entitic vol] 15.8 fL High 11.5-14.5 [facility] Erythrocyte mean corpuscular hemoglobin concentration measurement (mass/volume)Ordered By: KIM QUEVEDO on 10-22-2022 MCHC (RBC) [Mass/Vol] 29.5 g/dL Low 31-36 [facility] Hematocrit Auto (Bld) [Volum e fraction]Ordered By: KIM QUEVEDO on 10-22-2022 Hematocrit (Bld) [Volume fraction] 30.5 % Low 40.0-52.0 [facility] - Chemistry and C hemistry - challengeOrdered By: KIM QUEVEDO on 10-22-2022 GFR/1.73 sq M.predicted among non-blacks MDRD (S/P/Bld) [Vol rate/Area] 12 mL/min/{1.73_m2} [facility] Comment on above: EGFR <60.0 COULD BE ABNORMAL.THE GFR IS ESTIMATED USING THE MDRD STUDY EQUATION.*NOTE* IF THE RACE OF THE PATIENT WAS UNKNOWN AT THE TIME OFREGISTRATION, AND THE PATIENT IS , MULTIPLYTHE EGFR RESULT PROVIDED BY 1.21. Laboratory - Hematology and Cell countsOrdered By: KIM QUEVEDO on 10-22-2022 MCH (RBC) [Entitic mass] 24.7 pg Low 27-40 [facility] Serum or plasma anion gapOrd ered By: KIM QUEVEDO on 10-22-2022 Anion gap [Moles/Vol] 16 mmol/L High 9-15 [facility] Serum or plasma calcium zainab urement (mass/volume)Ordered By: KIM QUEVEDO on 10-22-2022 Calcium [Mass/Vol] 8.9 mg/dL 8.6-10.0 [facility] Serum or plasma carbon dioxi de, total measurement (moles/volume)Ordered By: KIM QUEVEDO on 10-22-2022 CO2 [Moles/Vol] 24 mmol/L 22-29 [facility] Serum or plasma chloride eduardo surement (moles/volume)Ordered By: KIM QUEVEDO on 10-22-2022 Chloride [Moles/Vol] 91 mmol/L Low 98-107 [facility] Serum or plasma creatinine m easurement (mass/volume)Ordered By: KIM QUEVEDO on 10-22-2022 Creatinine [Mass/Vol] 5.30 mg/dL High 0.67-1.17 [facility] Serum or plasma glucose zainab urement (mass/volume)Ordered By: KIM QUEVEDO on 10-22-2022 Glucose [Mass/Vol] 71 mg/dL 70-100 [facility] Comment on above: INTREPRETATION FOR F ASTING BLOOD GLUCOSE: 70-100 mg/dl NORMAL GLUCOSE [id number] mg/dl IMPAIRED FASTING GLUCOSE (PRE-DIABETES)>125 mg/dl DIABETES - ON MORE THAN ONE TESTING Serum or plasma potassium me asurement (moles/volume)Ordered By: KIM QUEVEDO on 10-22-2022 Potassium [Moles/Vol] 6.1 mmol/L High 3.6-5.0 [facility] Comment on above: HEMOLYSIS PRESENT. I NTERPRET RESULT WITH CAUTION. Serum or plasma sodium measu rement (moles/volume)Ordered By: KIM QUEVEDO on 10-22-2022 Sodium [Moles/Vol] 131 mmol/L Low 136-145 [facility] Serum or plasma urea nitroge n measurement (mass/volume)Ordered By: KIM QUEVEDO on 10-22-2022 Urea nitrogen [Mass/Vol] 47.7 mg/dL High 6.0-20.0 [facility] Basic Metabolic Panelon 03- Anion gap [Moles/Vol] 15 mmol/L Normal 9-15 [facility] Comment on above: Performed By: #### C HEM7 #### [facility] [address] [place] [id number] , Edi Irby M.D. FCAP, FASCP Calcium [Mass/Vol] 8.7 mg/dL Normal 8.6-10.0 [facility] Comment on above: Performed By: #### C HEM7 #### [facility] [address], [place] [id number] , Edi Irby M.D. FCAP, FASCP Chloride [Moles/Vol] 93 mmol/L Low 98-107 [facility] Comment on above: Performed By: #### C HEM7 #### [facility] [address], [place] [id number] , Edi Irby M.D. FCAP, FASCP CO2 [Moles/Vol] 25 mmol/L Normal 22-[address] [facility] Comment on above: Performed By: #### C HEM7 #### [facility] [address] [place] [id number] , Maribel PalenciaAP, FASCP Creatinine [Mass/Vol] 4.27 mg/dL High 0.67-1.17 [facility] Comment on above: Performed By: #### C HEM7 #### [facility] [address] [place] [address] , Edi Irby M.D. FCAP, FASCP GFR/1.73 sq M.predicted among non-blacks MDRD (S/P/Bld) [Vol rate/Area] 15 mL/min/{1.73_m2} Normal [facility] Comment on above: Result Comment: THE GFR IS ESTIMATED USING THE MDRD STUDY EQUATION. *NOTE* IF THE RACE OF THE PATIENT WAS UNKNOWN AT THE TIME OF REGISTRATION, AND THE PATIENT IS , MULTIPLY THE EGFR RESULT PROVIDED BY 1.21. EGFR <60.0 COULD BE ABNORMAL. Performed By: #### C HEM7 #### [address] [address] , Edi Irby M.D. FCAP, FASCP Glucose [Mass/Vol] 82 mg/dL Normal 70-100 [facility] Comment on above: Result Comment: INTR EPRETATION FOR FASTING BLOOD GLUCOSE: 70-100 mg/dl NORMAL GLUCOSE TOLERANCE 100-125 mg/dl IMPAIRED FASTING GLUCOSE (PRE-DIABETES) >125 mg/dl DIABETES - ON MORE THAN ONE TESTING Performed By: #### C HEM7 #### [facility] [address] [place] [address] , Maribel PalenciaAP, FASCP Potassium [Moles/Vol] 5.3 mmol/L High 3.6-5.0 [facility] Comment on above: Performed By: #### C HEM7 #### [facility] [address] [place] [address] , Edi Irby M.D. FCAP, FASCP Sodium [Moles/Vol] 133 mmol/L Low 136-145 [facility] Comment on above: Performed By: #### C HEM7 #### [facility] [address] [place] [address] , Edi Irby M.D. FCAP, FASCP Urea nitrogen [Mass/Vol] 36.5 mg/dL High 6.0-20.[address] [facility] Comment on above: Performed By: #### C HEM7 #### [facility] [address] [place] [address] , Edi Irby M.D. FCAP, FASCP Blood erythrocytes count (nu mber/volume)Ordered By: KIM QUEVEDO on 10-12-2022 RBC (Bld) [#/Vol] 3.41 10:6/uL Low 4.40-5.[address] [facility] Blood hemoglobin measurement (mass/volume)Ordered By: KIM QUEVEDO on 10-12-2022 Hemoglobin (Bld) [Mass/Vol] 8.7 g/dL Low 13.3-17.7 [facility] Blood leukocytes count (numb er/volume)Ordered By: KIM QUEVEDO on 10-12-2022 WBC (Bld) [#/Vol] 12.4 10:3/uL High 3.9-10.[address] [facility] Blood platelet countOrdered By: KIM QUEVEDO on 10-12-2022 Platelets (Bld) [#/Vol] 276 10:3/uL 130-440 [facility] Complete Blood Counton 10-12 Hematocrit (Bld) [Volume fraction] 28.7 % Low 40.0-52.[address] [facility] Comment on above: Performed By: #### C BCD #### [facility] [address] [place] [address] , Edi Irby M.D. FCAP, FASCP Hemoglobin (Bld) [Mass/Vol] 8.7 g/dL Low 13.3-17.[address] [facility] Comment on above: Performed By: #### C BCD #### [address] [id number] , Edi Irby M.D. FCAP, FASCP MCH (RBC) [Entitic mass] 25.5 pg Low 27.0-40.[address] [facility] Comment on above: Performed By: #### C BCD #### [address] [id number] , Edi Irby M.D. FCAP, FASCP Mean Corpusc Hgb Concentration 30.3 G/DL Low 31.0-36.[address] [facility] Comment on above: Performed By: #### C ANI #### [address] [id number] , Edi Irby M.D. FCAP, FASCP Mean Corpuscular Volume 84.2 CU uM Normal 80.0-100.0 [facility] Comment on above: Performed By: #### C BCJak #### [address] [id number] , Edi Irby M.D. FCAP, FASCP Platelet Count 276 10:3/uL Normal 130-[address] [facility] Comment on above: Performed By: #### C ANI #### [address], [place] [id number] , Edi Irby M.D. FCAP, FASCP Red Blood Cell Count 3.41 10:6/uL Low 4.40-5.90 [facility] Comment on above: Performed By: #### C AIN #### [address], [place] [id number] , Edi Irby M.D. FCAP, FASCP Red Cell Distribution 16.5 High 11.5-14.5 [facility] Comment on above: Performed By: #### C BCD #### [address] [place] [address] , Edi Irby M.D. FCAP, FASCP White Blood Cell Count 12.4 10:3/uL High 3.9-10.[address] [facility] Comment on above: Performed By: #### C BCD #### [facility] [address] [place] [address] , Edi Irby M.D. FCAP, FASCP Determination of erythrocyte mean corpuscular volume (MCV)Ordered By: KIM QUEVEDO on 10-12-2022 MCV (RBC) [Entitic vol] 84.2 CU uM 80.0-100.0 [facility] Erythrocyte distribution wid th standard deviationOrdered By: KIM QUEVEDO on 10-12-2022 Erythrocyte distribution width (RBC) [Entitic vol] 16.5 fL High 11.5-14.5 [facility] Erythrocyte mean corpuscular hemoglobin concentration measurement (mass/volume)Ordered By: KIM QUEVEDO on 10-12-2022 MCHC (RBC) [Mass/Vol] 30.3 g/dL Low 31-36 [facility] Hematocrit Auto (Bld) [Volum e fraction]Ordered By: KIM QUEVEDO on 10-12-2022 Hematocrit (Bld) [Volume fraction] 28.7 % Low 40.0-52.0 [facility] - Chemistry and C hemistry - challengeOrdered By: KIM QUEVEDO on 10-12-2022 GFR/1.73 sq M.predicted among non-blacks MDRD (S/P/Bld) [Vol rate/Area] 15 mL/min/{1.73_m2} [facility] Comment on above: EGFR <60.0 COULD BE ABNORMAL.THE GFR IS ESTIMATED USING THE MDRD STUDY EQUATION.*NOTE* IF THE RACE OF THE PATIENT WAS UNKNOWN AT THE TIME OFREGISTRATION, AND THE PATIENT IS , MULTIPLYTHE EGFR RESULT PROVIDED BY 1.21. Laboratory - Hematology and Cell countsOrdered By: KIM QUEVEDO on 10-12-2022 MCH (RBC) [Entitic mass] 25.5 pg Low 27-40 [facility] Serum or plasma anion gapOrd ered By: KIM QUEVEDO on 10-12-2022 Anion gap [Moles/Vol] 15 mmol/L 9-15 [facility] Serum or plasma calcium zainab urement (mass/volume)Ordered By: KIM QUEVEDO on 10-12-2022 Calcium [Mass/Vol] 8.7 mg/dL 8.6-10.0 [facility] Serum or plasma carbon dioxi de, total measurement (moles/volume)Ordered By: KIM QUEVEDO on 10-12-2022 CO2 [Moles/Vol] 25 mmol/L - [facility] Serum or plasma chloride eduardo surement (moles/volume)Ordered By: KIM QUEVEDO on 10-12-2022 Chloride [Moles/Vol] 93 mmol/L Low 98-107 [facility] Serum or plasma creatinine m easurement (mass/volume)Ordered By: KIM QUEVEDO on 10-12-2022 Creatinine [Mass/Vol] 4.27 mg/dL High 0.67-1.17 [facility] Serum or plasma glucose zainab urement (mass/volume)Ordered By: KIM QUEVEDO on 10-12-2022 Glucose [Mass/Vol] 82 mg/dL 70-100 [facility] Comment on above: INTREPRETATION FOR F ASTING BLOOD GLUCOSE: 70-100 mg/dl NORMAL GLUCOSE [id number] mg/dl IMPAIRED FASTING GLUCOSE (PRE-DIABETES)>125 mg/dl DIABETES - ON MORE THAN ONE TESTING Serum or plasma potassium me asurement (moles/volume)Ordered By: KIM QUEVEDO on 10-12-2022 Potassium [Moles/Vol] 5.3 mmol/L High 3.6-5.0 [facility] Serum or plasma sodium measu rement (moles/volume)Ordered By: KIM QUEVEDO on 10-12-2022 Sodium [Moles/Vol] 133 mmol/L Low 136-145 [facility] Serum or plasma urea nitroge n measurement (mass/volume)Ordered By: KIM QUEVEDO on 10-12-2022 Urea nitrogen [Mass/Vol] 36.5 mg/dL High 6.0-20.0 [facility] - Chemistry and C hemistry - challengeOrdered By: ROBERTO QUEVEDO on 10-05-2022 GFR/1.73 sq M.predicted among non-blacks MDRD (S/P/Bld) [Vol rate/Area] 16 mL/min/{1.73_m2} [facility] Comment on above: EGFR <60.0 COULD BE ABNORMAL.THE GFR IS ESTIMATED USING THE MDRD STUDY EQUATION.*NOTE* IF THE RACE OF THE PATIENT WAS UNKNOWN AT THE TIME OFREGISTRATION, AND THE PATIENT IS , MULTIPLYTHE EGFR RESULT PROVIDED BY 1.21. Serum or plasma anion gapOrd ered By: ROBERTO QUEVEDO on 10-05-2022 Anion gap [Moles/Vol] 17 mmol/L High 9-15 [facility] Serum or plasma calcium zainab urement (mass/volume)Ordered By: ROBERTO QUEVEDO on 10-05-2022 Calcium [Mass/Vol] 8.6 mg/dL 8.6-10.0 [facility] Serum or plasma carbon dioxi de, total measurement (moles/volume)Ordered By: ROBERTO QUEVEDO on 10-05-2022 CO2 [Moles/Vol] 22 mmol/L 22-29 [facility] Serum or plasma chloride eduardo surement (moles/volume)Ordered By: ROBERTO QUEVEDO on 10-05-2022 Chloride [Moles/Vol] 95 mmol/L Low 98-107 [facility] Serum or plasma creatinine m easurement (mass/volume)Ordered By: ROBERTO QUEVEDO on 10-05-2022 Creatinine [Mass/Vol] 4.04 mg/dL High 0.67-1.17 [facility] Serum or plasma glucose zainab urement (mass/volume)Ordered By: ROBERTO QUEVEDO on 10-05-2022 Glucose [Mass/Vol] 59 mg/dL Low 70-100 [facility] Comment on above: INTREPRETATION FOR F ASTING BLOOD GLUCOSE: 70-100 mg/dl NORMAL GLUCOSE [id number] mg/dl IMPAIRED FASTING GLUCOSE (PRE-DIABETES)>125 mg/dl DIABETES - ON MORE THAN ONE TESTING Serum or plasma potassium me asurement (moles/volume)Ordered By: ROBERTO QUEVEDO on 10-05-2022 Potassium [Moles/Vol] 5.5 mmol/L High 3.6-5.0 [facility] Comment on above: HEMOLYSIS PRESENT. I NTERPRET RESULT WITH CAUTION. Serum or plasma sodium measu rement (moles/volume)Ordered By: ROBERTO QUEVEDO on 10-05-2022 Sodium [Moles/Vol] 134 mmol/L Low 136-145 [facility] Serum or plasma urea nitroge n measurement (mass/volume)Ordered By: ROBERTO QUEVEDO on 10-05-2022 Urea nitrogen [Mass/Vol] 42.0 mg/dL High 6.0-20.0 [facility] Blood erythrocytes count (nu mber/volume)Ordered By: KIM QUEVEDO on 05-22-2022 RBC (Bld) [#/Vol] 2.79 10:6/uL Low 4.40-5.[address] [facility] Blood hemoglobin measurement (mass/volume)Ordered By: KIM QUEVEDO on 05-22-2022 Hemoglobin (Bld) [Mass/Vol] 8.3 g/dL Low 13.3-17.7 [facility] Blood leukocytes count (numb er/volume)Ordered By: KIM QUEVEDO on 05-22-2022 WBC (Bld) [#/Vol] 7.8 10:3/uL 3.9-10.6 [facility] Blood platelet countOrdered By: KIM QUEVEDO on 05-22-2022 Platelets (Bld) [#/Vol] 327 10:3/uL 130-440 [facility] Cholesterol in LDL Calc [Mas s/Vol]Ordered By: KIM QUEVEDO on 05-22-2022 Cholesterol in LDL [Mass/Vol] 17 mg/dL <100 [facility] Determination of erythrocyte mean corpuscular volume (MCV)Ordered By: KIM QUEVEDO on 05-22-2022 MCV (RBC) [Entitic vol] 98.9 CU uM 80.0-100.0 [facility] Erythrocyte distribution wid th standard deviationOrdered By: KIM QUEVEDO on 05-22-2022 Erythrocyte distribution width (RBC) [Entitic vol] 19.5 fL High 11.5-14.5 [facility] Erythrocyte mean corpuscular hemoglobin concentration measurement (mass/volume)Ordered By: KIM QUEVEDO on 05-22-2022 MCHC (RBC) [Mass/Vol] 30.1 g/dL Low 31-36 [facility] HbA1c HPLC (Bld) [Mass fract ion]Ordered By: KIM QUEVEDO on 05-22-2022 HbA1c (Bld) [Mass fraction] 4.8 % 4.4-5.6 [facility] Comment on above: PRE-DIABETES 5.7-6.4 DIABETES > OR = 6.5 Hematocrit Auto (Bld) [Volum e fraction]Ordered By: KIM QUEVEDO on 05-22-2022 Hematocrit (Bld) [Volume fraction] 27.6 % Low 40.0-52.0 [facility] Laboratory - Chemistry and C hemistry - challengeOrdered By: KIM QUEVEDO on 05-22-2022 GFR/1.73 sq M.predicted among non-blacks MDRD (S/P/Bld) [Vol rate/Area] 19 mL/min/{1.73_m2} [facility] Comment on above: EGFR <60.0 COULD BE ABNORMAL.THE GFR IS ESTIMATED USING THE MDRD STUDY EQUATION.*NOTE* IF THE RACE OF THE PATIENT WAS UNKNOWN AT THE TIME OFREGISTRATION, AND THE PATIENT IS , MULTIPLYTHE EGFR RESULT PROVIDED BY 1.21. Laboratory - Hematology and Cell countsOrdered By: KIM QUEVEDO on 05-22-2022 MCH (RBC) [Entitic mass] 29.7 pg 27-40 [facility] Serum or plasma anion gapOrd ered By: KIM QUEVEDO on 05-22-2022 Anion gap [Moles/Vol] 12 mmol/L 9-15 [facility] Serum or plasma calcium zainab urement (mass/volume)Ordered By: KIM QUEVEDO on 05-22-2022 Calcium [Mass/Vol] 8.8 mg/dL 8.6-10.0 [facility] Serum or plasma carbon dioxi de, total measurement (moles/volume)Ordered By: KIM QUEVEDO on 05-22-2022 CO2 [Moles/Vol] 27 mmol/L 22-29 [facility] Serum or plasma cardiac hear t disease risk ratioOrdered By: KIM QUEVEDO on 05-22-2022 Cardiac heart disease risk [Ratio] 2.83 [facility] Comment on above: RISK NORMALS MEN WOM EN1/[address] 23[address]39 11[address]04 TRIGLYCERIDES >400 MG/DL MAY CAUSE INCONSISTENCIES IN THE LDL. Serum or plasma chloride eduardo surement (moles/volume)Ordered By: KIM QUEVEDO on 05-22-2022 Chloride [Moles/Vol] 98 mmol/L 98-107 [facility] Serum or plasma cholesterol measurement (mass/volume)Ordered By: KIM QUEVEDO on 05-22-2022 Cholesterol [Mass/Vol] 68 mg/dL 0-199 [facility] Serum or plasma creatinine m easurement (mass/volume)Ordered By: KIM QUEVEDO on 05-22-2022 Creatinine [Mass/Vol] 3.54 mg/dL High 0.67-1.17 [facility] Serum or plasma glucose zainab urement (mass/volume)Ordered By: KIM QUEVEDO on 05-22-2022 Glucose [Mass/Vol] 75 mg/dL 70-100 [facility] Comment on above: INTREPRETATION FOR F ASTING BLOOD GLUCOSE: 70-100 mg/dl NORMAL GLUCOSE [id number] mg/dl IMPAIRED FASTING GLUCOSE (PRE-DIABETES)>125 mg/dl DIABETES - ON MORE THAN ONE TESTING Serum or plasma high density lipoprotein (HDL) cholesterol measurementOrdered By: KIM QUEVEDO on 05-22-2022 Cholesterol in HDL [Mass/Vol] 24 mg/dL Low >61 [facility] Serum or plasma potassium me asurement (moles/volume)Ordered By: KIM QUEVEDO on 05-22-2022 Potassium [Moles/Vol] 4.2 mmol/L 3.6-5.0 [facility] Serum or plasma sodium measu rement (moles/volume)Ordered By: KIM QUEVEDO on 05-22-2022 Sodium [Moles/Vol] 137 mmol/L 136-145 [facility] Serum or plasma triglyceride measurement (mass/volume)Ordered By: KIM QUEVEDO on 05-22-2022 Triglyceride [Mass/Vol] 135 mg/dL <150 [facility] Serum or plasma urea nitroge n measurement (mass/volume)Ordered By: KIM QUEVEDO on 05-22-2022 Urea nitrogen [Mass/Vol] 12.7 mg/dL 6.0-20.0 [facility] POC Urinalysison 09-07-2021 Bilirubin Ql (U) Negative Negative - Negative [facility] Other Glucose Ql (U) Negative Negative - Negative [facility] Other Hemoglobin Ql (U) 2+ Negative - Negative [facility] Other Nitrite Ql (U) Negative Negative - Negative [facility] Other pH (U) 7.0 [pH] 5.0 - 7.5 [facility] Other Protein Ql (U) 2+ Negative - Negative [facility] Other Specific gravity (U) [Rel density] 1.020 1.005 - 1.030 [facility] Other Urobilinogen (U) [Mass/Vol] Negative 0.1 - 1.0 Eu/dl [facility] Other POC Urinalysis Negative Negative - Negative [facility] Other POC Urinalysis 3+ Negative - Negative [facility] Other Otheron 10-01-2019 GFR/1.73 sq M.predicted MDRD (S/P/Bld) [Vol rate/Area] 12 mL/min/{1.73_m2} [facility] Work Phone: Comment on above: EGFR <60.0 COULD BE ABNORMAL.THE GFR IS ESTIMATED USING THE MDRD STUDY EQUATION.*NOTE* IF THE RACE OF THE PATIENT WAS UNKNOWN AT THE TIME OFREGISTRATION, AND THE PATIENT IS , MULTIPLYTHE EGFR RESULT PROVIDED BY 1.21. Serum or plasma anion gapon 10-01-2019 Anion gap [Moles/Vol] 18 mmol/L High 9-15 [facility] Work Phone: Serum or plasma calcium zainab urement (mass/volume)on 10-01-2019 Calcium [Mass/Vol] 7.4 mg/dL Low 8.6-10.0 [facility] Work Phone: Serum or plasma carbon dioxi de, total measurement (moles/volume)on 10-01-2019 CO2 [Moles/Vol] 20 mmol/L Low 22-29 [facility] Work Phone: Serum or plasma chloride eduardo surement (moles/volume)on 10-01-2019 Chloride [Moles/Vol] 91 mmol/L Low 98-107 [facility] Work Phone: Serum or plasma creatinine m easurement (mass/volume)on 10-01-2019 Creatinine [Mass/Vol] 5.35 mg/dL High 0.67-1.17 [facility] Work Phone: Serum or plasma glucose zainab urement (mass/volume)on 10-01-2019 Glucose [Mass/Vol] 410 mg/dL High 70-100 [facility] Work Phone: Comment on above: Alert Value called junaid PENA, DATE: 2019-10-01 14:13:19 BY:Robbie Read Back? YES ALERT VALUE ATTENTION NURSING ALERT VALUE NOTIFY PHYSICIAN WITHIN 30 MINUTES OF RECEIVING THIS REPORTINTREPRETATION FOR FASTING BLOOD GLUCOSE: 70-100 mg/dl NORMAL GLUCOSE [id number] mg/dl IMPAIRED FASTING GLUCOSE (PRE-DIABETES)>125 mg/dl DIABETES - ON MORE THAN ONE TESTING Serum or plasma potassium me asurement (moles/volume)on 10-01-2019 Potassium [Moles/Vol] 3.6 mmol/L 3.6-5.0 [facility] Work Phone: Serum or plasma sodium measu rement (moles/volume)on 10-01-2019 Sodium [Moles/Vol] 129 mmol/L Low 136-145 [facility] Work Phone: Serum or plasma urea nitroge n measurement (mass/volume)on 10-01-2019 Urea nitrogen [Mass/Vol] 43.6 mg/dL High 6.0-20.0 [facility] Work Phone: Whole blood glucose measurem ent using handheld analyzer (mass/volume)on 10-01-2019 Glucose [Mass/Vol] 235 mg/dL High 70-100 [facility] Work Phone: Comment on above: Delta: 369 on 141 Vital Signs Date Time Vital Sign Value Performing Clinician Facility 12-08-2024 08:32-0400 Body mass index (BMI) [Ratio] 48.4 kg/m2 Dr. Bella Oneal MD Work Phone: [facility] 12-08-2024 08:32-0400 Body weight 108.[address] Bella Oneal MD Work Phone: [facility] 12-08-2024 08:32-0400 Diastolic blood pressure 88 mm[Hg] Dr. Bella Oneal MD Work Phone: [facility] 12-08-2024 08:32-0400 Heart rate 103 /min Dr. Bella Oneal MD Work Phone: [facility] 12-08-2024 08:32-0400 Respiratory rate 18 /min Dr. Bella Oneal MD Work Phone: [facility] 12-08-2024 08:32-0400 Systolic blood pressure 131 mm[Hg] Dr. Bella Oneal MD Work Phone: [facility] 12-03-2024 13:01-0400 Body height 149.[address] Bella Oneal MD Work Phone: [facility] 12-03-2024 13:01-0400 Body mass index (BMI) [Ratio] 48.4 kg/m2 Dr. Bella Oneal MD Work Phone: [facility] 12-03-2024 13:01-0400 Body weight 108.[address] Bella Oneal MD Work Phone: [facility] 07-23-2024 15:47-0500 Heart rate 89 /min DR ZAIN FERRO MD [address] 07-23-2024 15:47-0500 Respiratory rate 18 /min DR ZAIN FERRO MD [address] [place] [address] 07-23-2024 14:40-0500 Body temperature 97.52 [degF] DR ZAIN FERRO MD [address] [place] [address] 07-23-2024 14:40-0500 Body weight 104.[address] ZAIN FERRO MD [address] [place] [address] 07-23-2024 14:40-0500 Diastolic Blood Pressure Non-Invasive 98 mm[Hg] DR ZAIN FERRO MD [address] [place] [address] 07-23-2024 14:40-0500 Heart rate 84 /min DR ZAIN FERRO MD [address] [place] [address] 07-23-2024 14:40-0500 Reason For Taking VItal Signs DR ZAIN FERRO MD [address] [place] [address] 07-23-2024 14:40-0500 Respiratory rate 16 /min DR ZAIN FERRO MD [address] [place] [address] 07-23-2024 14:40-0500 Systolic Blood Pressure Non-Invasive 166 mm[Hg] DR ZAIN FERRO MD [address] [place] [address] 07-23-2024 14:00-0500 Diastolic Blood Pressure Non-Invasive 90 mm[Hg] DR ZAIN FERRO MD [address] [place] [address] 07-23-2024 14:00-0500 Systolic Blood Pressure Non-Invasive 137 mm[Hg] DR ZAIN FERRO MD [address] [place] [address] 07-23-2024 13:40-0500 Diastolic Blood Pressure Non-Invasive 94 mm[Hg] DR ZAIN FERRO MD [address] [place] [address] 07-23-2024 13:40-0500 Heart rate 84 /min DR ZAIN FERRO MD [address] [place] [address] 07-23-2024 13:40-0500 Systolic Blood Pressure Non-Invasive 146 mm[Hg] DR ZAIN FERRO MD [address] [place] [address] 07-23-2024 11:10-0500 Body temperature 97.88 [degF] DR ZAIN FERRO MD [address] [place] [address] 07-23-2024 11:10-0500 Body weight 107.[address] ZAIN FERRO MD [address] [place] [address] 07-23-2024 11:10-0500 Heart rate 86 /min DR ZAIN FERRO MD [address] [place] [address] 07-23-2024 11:10-0500 Reason For Taking VItal Signs DR ZAIN FERRO MD [address] [place] [address] 07-23-2024 11:10-0500 Respiratory rate 18 /min DR ZAIN FERRO MD [address] [place] [address] 07-23-2024 07:34-0500 Heart rate 96 /min DR ZAIN FERRO MD [address] [place] [address] 07-23-2024 04:06-0500 Body temperature 97.88 [degF] DR ZAIN FERRO MD [address] [place] [address] 07-23-2024 04:06-0500 Reason For Taking VItal Signs DR ZAIN FERRO MD [address] [place] [address] 07-22-2024 19:33-0500 Body temperature 97.88 [degF] DR ZAIN FERRO MD [address] [place] [address] 07-22-2024 15:49-0500 Body temperature 97.7 [degF] DR ZAIN FERRO MD [address] [place] [address] 07-22-2024 13:09-0500 Body temperature 97.88 [degF] DR ZAIN FERRO MD [facility] 07-22-2024 13:09-0500 Body weight 108.[address] ZAIN FERRO MD [facility] 07-22-2024 06:19-0500 Body temperature 98.24 [degF] DR ZAIN FERRO MD [facility] 07-22-2024 06:16-0500 Body height 149.[address] ZAIN FERRO MD [facility] 07-22-2024 06:16-0500 Body weight 50.07 kg/m2 DR ZAIN FERRO MD [facility] 07-22-2024 05:06-0500 Diastolic Blood Pressure Non-Invasive 86 mm[Hg] KIZZY FROMEncentuateT DO [facility] 07-22-2024 05:06-0500 Heart rate 49 /min KIZZY FROMMELT DO [facility] 07-22-2024 05:06-0500 Respiratory rate 20 /min KIZZY FROMMELT DO [facility] 07-22-2024 05:06-0500 Systolic Blood Pressure Non-Invasive 164 mm[Hg] KIZZY FROMMELT DO [facility] 07-22-2024 02:48-0500 Heart rate 90 /min KIZZY FROMMELT DO [facility] 07-22-2024 02:48-0500 Respiratory rate 20 /min KIZZY FROMMELT DO [facility] 07-22-2024 02:09-0500 Blood Pressure Cuff Size KIZZY FROMMELT DO [facility] 07-22-2024 02:09-0500 Blood Pressure Location KIZZY FROMMELT DO [facility] 07-22-2024 02:09-0500 Blood Pressure Method KIZZY MEDEROS D O [facility] 07-22-2024 02:09-0500 Body temperature 98.96 [degF] KIZZY FROMMELISSAT DO [facility] 07-22-2024 02:09-0500 Diastolic Blood Pressure Non-Invasive 91 mm[Hg] KIZZY FROMMELISSAT DO [facility] 07-22-2024 02:09-0500 Heart rate 46 /min KIZZY JONEST DO [facility] 07-22-2024 02:09-0500 Respiratory rate 20 /min KIZZY JONEST DO [facility] 07-22-2024 02:09-0500 Systolic Blood Pressure Non-Invasive 139 mm[Hg] KIZZY JONEST DO [facility] 02-01-2022 12:30-0400 Body height 167.64 cm Connie Montgomery Other [facility] Other 02-01-2022 12:30-0400 Diastolic blood pressure 100 mm[Hg] Connie Montgomery Other [facility] Other 02-01-2022 12:30-0400 Heart rate 86 /min Connie Montgomery Other [facility] Other 02-01-2022 12:30-0400 Respiratory rate 20 /min Connie Montgomery Other [facility] Other 02-01-2022 12:30-0400 SaO2% (BldA) [Mass fraction] 98 % Connie Montgomery Other [facility] Other 02-01-2022 12:30-0400 Systolic blood pressure 156 mm[Hg] Connie Montgomery Other [facility] Other 10-19-2021 12:00-0400 Body height 167.64 cm Erik Hargrove Other [facility] Other 10-19-2021 12:00-0400 Body mass index (BMI) [Ratio] 42.77 kg/m2 Erik Hargroev Other [facility] Other 10-19-2021 12:00-0400 Body temperature 98 [degF] Erik Hargrove Other [facility] Other 10-19-2021 12:00-0400 Body weight 120.2 kg Erik Hargrove Other [facility] Other 10-19-2021 12:00-0400 Diastolic blood pressure 88 mm[Hg] Erik Hargrove Other [facility] Other 10-19-2021 12:00-0400 Heart rate 84 /min Erik Hargrove Other [facility] Other 10-19-2021 12:00-0400 Respiratory rate 20 /min Erik Hargrove Other [facility] Other 10-19-2021 12:00-0400 SaO2% (BldA) [Mass fraction] 98 % Erik Hargrove Other [facility] Other 10-19-2021 12:00-0400 Systolic blood pressure 150 mm[Hg] Erik Hargrove Other [facility] Other 09-07-2021 09:30-0500 Body height 167.64 cm Erik Hargrove Other [facility] Other 09-07-2021 09:30-0500 Body mass index (BMI) [Ratio] 42.77 kg/m2 Erik Hargrove Other [facility] Other 09-07-2021 09:30-0500 Body temperature 97.6 [degF] Erik Hargrove Other [facility] Other 09-07-2021 09:30-0500 Body weight 120.2 kg Erik Hargrove Other [facility] Other 09-07-2021 09:30-0500 Diastolic blood pressure 114 mm[Hg] Erik Hargrove Other [facility] Other 09-07-2021 09:30-0500 Heart rate 94 /min Erik Hargrove Other [facility] Other 09-07-2021 09:30-0500 Respiratory rate 18 /min Erik Hargrove Other [facility] Other 09-07-2021 09:30-0500 SaO2% (BldA) [Mass fraction] 98 % Erik Hargrove Other [facility] Other 09-07-2021 09:30-0500 Systolic blood pressure 169 mm[Hg] Erik Hargrove Other [facility] Other 07-12-2021 09:15-0500 Body height 167.64 cm Erik Hargrove Other [facility] Other 07-12-2021 09:15-0500 Body temperature 97.5 [degF] Erik Hargrove Other [facility] Other 07-12-2021 09:15-0500 Diastolic blood pressure Erik Hargrove Other [facility] Other 07-12-2021 09:15-0500 Heart rate 66 /min Erik Hargrove Other [facility] Other 07-12-2021 09:15-0500 Respiratory rate 18 /min Erik Hargrove Other [facility] Other 07-12-2021 09:15-0500 SaO2% (BldA) [Mass fraction] 92 % Erik Hargrove Other [facility] Other 07-12-2021 09:15-0500 Systolic blood pressure 92 mm[Hg] Erik Hargrove Other [facility] Other 10-01-2019 17:46-0400 Body Temperature 97.8 [degF] KATHY BUCHANAN [facility] Work Phone: 10-01-2019 17:46-0400 BP Diastolic 93 mm[Hg] KATHY BUCHANAN [facility] Work Phone: 10-01-2019 17:46-0400 BP Systolic 192 mm[Hg] KATHY BUCHANAN [facility] Work Phone: 10-01-2019 17:46-0400 Pulse (Heart Rate) 73 /min [facility]: 10-01-2019 17:46-0400 Pulse Oximetry 95 % KATHY BUCHANAN [facility] Work Phone: 10-01-2019 17:46-0400 Respiratory Rate 19 /min KATHY BUCHANAN [facility] Work Phone: 09-25-2019 12:32-0400 Body weight 108.86 kg KATHY Hernandez [facility] Work Phone: 09-25-2019 12:32-0400 Height 167.64 cm KATHY Hernandez [facility] Work Phone: Encounters Encounter Date Encounter Type Care Provider Facility Start: 01-19-2025 ambulatory Agusto [facility] Facility :[facility] Start: 01-12-2025 ambulatory Kayleen Pederson Fa cility:[facility] Start: 12-25-2024 ambulatory PHY WO ID REFERRING Fac ility:[facility] Start: 12-18-2024 Encounter for genera l adult medical examination without abnormal findings Ton Vasquez [facility] Start: 12-17-2024 End: 12-17-2024 ambulatory DANTEKALLIE VANG HOTEL 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 Tiburcio Osborne MD -[facility] Work Phone: Start: 12-08-2024 End: 12-08-[address] Bella Oneal MD Work Phone: [facility] Work Phone: Start: 12-03-2024 End: 12-03-[address] Agusto Rogers MD -[facility] Work Phone: Start: 12-03-2024 End: 12-03-2024 ambulatory Agusto Rogers Facility:[facility] Start: 11-06-2024 End: 11-06-[address] Ton Vasquez MD -[facility] Work Phone: Start: 11-06-2024 End: 11-06-2024 ambulatory Bella Oneal Facility:[facility] Start: 10-30-[address] Gila Bernal MD -[facility] Start: 10-30-2024 ambulatory Bella Jm Facility :[facility] Start: 07-22-2024 End: 07-23-2024 Evaluation and management of inpatient DR ZAIN FERRO MD [facility] Start: 07-22-2024 End: 07-22-2024 Emergency department patient visit KIZZY MEDREOS DO [facility] Start: 02-11-2024 ambulatory Bella Jm Facility :[facility] Start: 02-09-2024 End: 02-09-2024 Emergency department patient visit Jason Morris Facility:[facility] Start: 02-04-2024 ambulatory Bella Candor Facility :[facility] Start: 01-23-2024 End: 01-23-2024 ambulatory Bella Jm Facility:[facility] Start: 01-21-2024 End: 01-21-2024 Emergency department patient visit Bella Candor Facility:[facility] Start: 01-09-2024 End: 01-10-2024 ambulatory Bella Candor Facility:[facility] Start: 01-09-2024 End: 01-09-2024 ambulatory Bella Candor Facility:[facility] Start: 10-03-2023 End: 10-04-2023 ambulatory KIM QUEVEDO Facility:[facility] Start: 10-03-2023 Evaluation and management of inpatient ELISABETH GUILLENNIXON [facility] Start: 10-03-2023 End: 10-03-2023 ambulatory CLIENT SALES AND SERVICE OFFICER-BC ERIK N HARGROVE Work Phone: [facility] Work Phone: Start: 10-03-2023 End: 10-03-2023 Departed Referred CLIENT SALES AND SERVICE OFFICER-BC ERIK HARGROVE Work Phone: [facility]-SPECIAL SERVICE OFFICER [facility] Work Phone: Start: 09-29-2023 ambulatory ERIK N HARGROVE Facility :[facility] Start: 09-29-2023 Evaluation and management of inpatient KATHY SHARP [facility] Start: 09-22-2023 ambulatory KIM Almendarez ty:[facility] Start: 09-22-2023 Evaluation and management of inpatient VICKI RAO [facility] Start: 08-03-2023 ambulatory ERIK HARGROVE Facility :[facility] Start: 08-03-2023 Evaluation and management of inpatient KATHY SHARP [facility] Start: 07-11-2023 End: 07-11-2023 ambulatory ERIKADRIÁN HARGROVE Facility:[facility] Start: 07-11-2023 Evaluation and management of inpatient CHRISTIANO LINARES [facility] Start: 07-11-2023 End: 07-11-2023 ambulatory CLIENT SALES AND SERVICE OFFICER-BC ERIK N HARGROVE Work Phone: [facility] Work Phone: Start: 07-11-2023 End: 07-11-2023 Departed Referred CLIENT SALES AND SERVICE OFFICER-BC ERIK HARGROVE Work Phone: [facility] Work Phone: Start: 07-05-2023 End: 07-05-2023 ambulatory ERIKADRIÁN HARGROVE Facility:[facility] Start: 07-05-2023 Evaluation and management of inpatient LEISABETH COFFMAN [facility] Start: 07-05-2023 End: 07-05-2023 ambulatory CLIENT SALES AND SERVICE OFFICER-BC ERIK N HARGROVE Work Phone: [facility] Work Phone: Start: 07-05-2023 End: 07-05-2023 Departed Referred CLIENT SALES AND SERVICE OFFICER-BC ERIK HARGROVE Work Phone: [facility] Work Phone: Start: 06-09-2023 ambulatory ERIK HARGROVE Facility :[facility] Start: 06-09-2023 Evaluation and management of inpatient KATHY SHARP [facility] Start: 05-29-2023 End: 05-29-2023 ambulatory ERIK N HARGROVE Facility:[facility] Start: 05-29-2023 Evaluation and management of inpatient ELISABETH COFFMAN [facility] Start: 05-29-2023 End: 05-29-2023 ambulatory CLIENT SALES AND SERVICE OFFICER-BC ERIK N HARGROVE Work Phone: [facility] Work Phone: Start: 05-29-2023 End: 05-29-2023 Departed Referred CLIENT SALES AND SERVICE OFFICER-BC ERIK HARGROVE Work Phone: [facility]-SPECIAL SERVICE OFFICER [facility] Work Phone: Start: 05-29-2023 ambulatory ERIK N HARGROVE Facility :[facility] Start: 05-29-2023 Evaluation and management of inpatient VICKI RAO [facility] Start: 04-05-2023 ambulatory ERIK Zoran [place] Facility :[facility] Start: 04-05-2023 Evaluation and management of inpatient VICKI RAO [facility] Start: 02-25-2023 ambulatory KIM Almendarez ty:[facility] Start: 02-25-2023 Evaluation and management of inpatient KIM ALVAREZ [facility] Start: 01-24-2023 ambulatory ERIK Zoran [place] Facility :[facility] Start: 01-24-2023 Evaluation and management of inpatient VICKI RAO [facility] Start: 01-21-2023 ambulatory KIM Almendarez ty:[facility] Start: 01-21-2023 Evaluation and management of inpatient KIM ALVAREZ [facility] Start: 01-08-2023 ambulatory KIM Almendarez ty:[facility] Start: 01-08-2023 Evaluation and management of inpatient KIM ALVAREZ [facility] Start: 01-01-2023 End: 01-01-2023 ambulatory ERIK Zoran HARGROVE Facility:[facility] Start: 01-01-2023 Evaluation and management of inpatient JORGITO RIVERA [facility] Start: 01-01-2023 End: 01-01-2023 ambulatory CLIENT SALES AND SERVICE OFFICER-BC ERIK N HARGROVE Work Phone: [facility] Work Phone: Start: 01-01-2023 End: 01-01-2023 Departed Referred CLIENT SALES AND SERVICE OFFICER-BC ERIK HARGROVE Work Phone: [facility]-SPECIAL SERVICE OFFICER LLUVIARISE [facility] Start: 01-01-2023 ambulatory ROBERTO SUTHERLANDMERY Facil ity[facility] Start: 01-01-2023 Evaluation and management of inpatient KIM ALVAREZ [facility] Start: 12-29-2022 ambulatory ERIK HARGROVE Facility :[facility] Start: 12-29-2022 Evaluation and management of inpatient VICKI RAO [facility] Start: 12-28-2022 End: 12-28-2022 ambulatory ERIKADRIÁN HARGROVE Facility:[facility] Start: 12-28-2022 Evaluation and management of inpatient JORGITO RIVERA [facility] Start: 12-28-2022 End: 12-28-2022 ambulatory CLIENT SALES AND SERVICE OFFICER-BC ERIK HARGROVE Work Phone: [facility] Work Phone: Start: 12-28-2022 End: 12-28-2022 Departed Referred CLIENT SALES AND SERVICE OFFICER-MAYURI HARGROVE Work Phone: [facility]HOUE [facility] Start: 12-25-2022 ambulatory KIM BETHEAGOMERStevo [place] ty:[facility] Start: 12-25-2022 Evaluation and management of inpatient KIM ALVAREZ [facility] Start: 12-21-2022 End: 12-21-2022 ambulatory ERIKADRIÁN HARGROVE Facility:[facility] Start: 12-21-2022 Evaluation and management of inpatient JORGITO RIVERA [facility] Start: 12-21-2022 End: 12-21-2022 Departed Referred CLIENT SALES AND SERVICE OFFICER-BC ERIK HARGROVE Work Phone: [facility] Start: 12-07-2022 End: 12-07-2022 ambulatory ERIKADRIÁN HARGROVE Facility:[facility] Start: 12-07-2022 Evaluation and management of inpatient JORGITO RIVERA [facility] Start: 12-07-2022 End: 12-07-2022 Departed Referred CLIENT SALES AND SERVICE OFFICER-BC ERIK HARGROVE Work Phone: [facility] Start: 11-30-2022 End: 11-30-2022 ambulatory ERIK N HARGROVE Facility:[facility] Start: 11-30-2022 Evaluation and management of inpatient JORGITO RIVERA [facility] Start: 11-30-2022 End: 11-30-2022 Departed Referred CLIENT SALES AND SERVICE OFFICER-BC ERIK HARGROVE Work Phone: [facility] Start: 11-26-2022 End: 11-26-2022 ambulatory ERIK N HARGROVE Facility:[facility] Start: 11-26-2022 Evaluation and management of inpatient LEOPOLDO DUFFY [facility] Start: 11-26-2022 End: 11-26-2022 ambulatory CLIENT SALES AND SERVICE OFFICER-BC ERIK N HARGROVE Work Phone: [facility] Work Phone: Start: 11-26-2022 End: 11-26-2022 Departed Referred CLIENT SALES AND SERVICE OFFICER-BC ERIKADRIÁN BONDS Work Phone: [facility] Start: 11-23-2022 End: 11-23-2022 ambulatory ERIK N HARGROVE Facility:[facility] Start: 11-23-2022 Evaluation and management of inpatient JORGITO RIVERA [facility] Start: 11-23-2022 End: 11-23-2022 ambulatory CLIENT SALES AND SERVICE OFFICER-BC ERIK N HARGROVE Work Phone: [facility] Work Phone: Start: 11-23-2022 End: 11-23-2022 Departed Referred CLIENT SALES AND SERVICE OFFICER-BC ERIK HARGROVE Work Phone: [facility] Start: 11-22-2022 ambulatory ERIK N HARGROVE Facility :[facility] Start: 11-22-2022 Evaluation and management of inpatient VICKI RAO [facility] Start: 11-16-2022 End: 11-16-2022 ambulatory ERIK N HARGROVE Facility:[facility] Start: 11-16-2022 Evaluation and management of inpatient JORGITO RIVERA [facility] Start: 11-16-2022 End: 11-16-2022 ambulatory CLIENT SALES AND SERVICE OFFICER-BC ERIK N HARGROVE Work Phone: [facility] Work Phone: Start: 11-16-2022 End: 11-16-2022 Departed Referred CLIENT SALES AND SERVICE OFFICER-BC ERIK HARGROVE Work Phone: [facility]- [facility] Start: 11-09-2022 End: 11-09-2022 ambulatory ERIK N HARGROVE Facility:[facility] Start: 11-09-2022 Evaluation and management of inpatient SB AGEE [facility] Start: 11-09-2022 End: 11-09-2022 Departed Referred CLIENT SALES AND SERVICE OFFICER-BC ERIK HARGROVE [facility] Start: 11-02-2022 End: 11-02-2022 ambulatory ERIK N HARGROVE Facility:[facility] Start: 11-02-2022 Evaluation and management of inpatient KARENA WHALEN [facility] Start: 11-02-2022 End: 11-02-2022 ambulatory CLIENT SALES AND SERVICE OFFICER-BC ERIK N HARGROVE Work Phone: [facility] Work Phone: Start: 11-02-2022 End: 11-02-2022 Departed Referred CLIENT SALES AND SERVICE OFFICER-BC ERIK HARGROVE Work Phone: [facility] Start: 10-29-2022 ambulatory ERIK N BEENA Facility :[facility] Start: 10-29-2022 Evaluation and management of inpatient KIM ALVAREZ [facility] Start: 10-26-2022 End: 10-26-2022 ambulatory KIM QUEVEDO Facility:[facility] Start: 10-26-2022 Evaluation and management of inpatient KRYSTEN العلي [facility] Start: 10-26-2022 End: 10-26-2022 ambulatory CLIENT SALES AND SERVICE OFFICER-BC ERIK N HARGROVE Work Phone: [facility] Work Phone: Start: 10-26-2022 End: 10-26-2022 Departed Referred CLIENT SALES AND SERVICE OFFICER-BC ERIK HARGROVE Work Phone: [facility] Start: 10-22-2022 End: 10-22-2022 ambulatory KIM WHARNCLIFFE Facility:[facility] Start: 10-22-2022 Evaluation and management of inpatient KASIE THAPA [facility] Start: 10-22-2022 End: 10-22-2022 ambulatory CLIENT SALES AND SERVICE OFFICER-BC ERIK N HARGROVE Work Phone: [facility] Work Phone: Start: 10-22-2022 End: 10-22-2022 Departed Referred CLIENT SALES AND SERVICE OFFICER-BC ERIK HARGROVE Work Phone: [facility] Start: 10-12-2022 End: 10-12-2022 ambulatory ERIKStevo HARGROVE Facility:[facility] Start: 10-12-2022 Evaluation and management of inpatient DOUGLAS STYLES [facility] Start: 10-12-2022 End: 10-12-2022 ambulatory CLIENT SALES AND SERVICE OFFICER-BC ERIK N HARGROVE Work Phone: [facility] Work Phone: Start: 10-12-2022 End: 10-12-2022 Departed Referred CLIENT SALES AND SERVICE OFFICER-BC ERIK HARGROVE Work Phone: [facility] Start: 10-05-2022 End: 10-05-2022 ambulatory CLIENT SALES AND SERVICE OFFICER-BC ERIK N HARGROVE Work Phone: [facility] Work Phone: Start: 10-05-2022 End: 10-05-2022 Departed Referred CLIENT SALES AND SERVICE OFFICER-BC ERIK HARGROVE Work Phone: [facility] NATHAN [facility] Start: 05-22-2022 End: 05-22-2022 ambulatory CLIENT SALES AND SERVICE OFFICER-BC ERIK N HARGROVE Work Phone: [facility] Work Phone: Start: 05-22-2022 End: 05-22-2022 Departed Referred CLIENT SALES AND SERVICE OFFICER-BC ERIK HARGROVE [facility] Start: 04-16-2022 End: 04-16-2022 ambulatory Erik Hargrove Other [facility] Other Start: 04-16-2022 Telephone encounter Erik Hargrove [facility] Start: 03-20-2022 End: 03-20-2022 ambulatory Erik Hargrove Other [facility] Other Start: 03-20-2022 Telephone encounter Erik Hargrove [facility] Start: 03-19-2022 End: 03-19-2022 ambulatory Erik Hargrove Other [employer] Other Start: 03-19-2022 Telephone encounter Erik Hargrove [facility] Start: 03-14-2022 End: 03-14-2022 ambulatory Erik Hargrove Other [facility] Other Start: 03-14-2022 Telephone encounter Erik Hargrove [facility] Start: 03-06-2022 End: 03-06-2022 ambulatory Erik Hargrove Other [facility] Other Start: 03-06-2022 Telephone encounter Erik Hargrove [facility] Start: 02-01-2022 End: 02-01-2022 ambulatory Erik Hargrove Other [facility] Other Start: 02-01-2022 Office outpatient vi sit 25 minutes Connie Montgomery [facility] Start: 02-01-2022 Telephone encounter Erik Hargrove [facility] Start: 01-31-2022 End: 01-31-2022 ambulatory Erik Hargrove Other [facility] Other Start: 01-31-2022 Telephone encounter Erik Hargrove [facility] Start: 01-09-2022 End: 01-09-2022 ambulatory Erik Hargrove Other [facility] Other Start: 01-09-2022 Telephone encounter Erik Hargrove [facility] Start: 10-19-2021 End: 10-19-2021 ambulatory Erik Hargrove Other [facility] Other Start: 10-19-2021 Office outpatient vi sit 25 minutes Erik Hargrove [facility] Start: 10-16-2021 End: 10-16-2021 ambulatory Erik Hargrove Other [facility] Other Start: 10-16-2021 Telephone encounter Erik Hargrove [facility] Start: 10-10-2021 End: 10-10-2021 ambulatory Erik Hargrove Other [facility] Other Start: 10-10-2021 Telephone encounter Erik Hargrove [facility] Start: 09-13-2021 End: 09-13-2021 ambulatory Erik Hargrove Other [facility] Other Start: 09-13-2021 Telephone encounter Erik Hargrove [facility] Start: 09-07-2021 End: 09-07-2021 ambulatory Erik Hargrove Other [facility] Other Start: 09-07-2021 Office outpatient vi sit 25 minutes Erik Hargrove [facility] Start: 09-04-2021 End: 09-04-2021 ambulatory Erik Hargrove Other [facility] Other Start: 09-04-2021 Telephone encounter Erik Hargrove [facility] Start: 07-17-2021 End: 07-17-2021 ambulatory Erik Hargrove Other [facility] Other Start: 07-17-2021 Telephone encounter Erik Hargrove [facility] Start: 07-12-2021 End: 07-12-2021 ambulatory Erik Hargrove Other [facility] Other Start: 07-12-2021 Office outpatient vi sit 15 minutes Erik Hargrove [facility] Start: 06-29-2021 End: 06-29-2021 ambulatory Erik Hargrove Other [facility] Other Start: 06-29-2021 Telephone encounter Erik Hargrove [facility] Start: 05-26-2021 End: 05-26-2021 ambulatory Erik Hargrove Other [facility] Other Start: 05-26-2021 Telephone encounter Erik Hargrove [facility] Start: 12-29-2019 End: 12-29-2019 Patient encounter procedure [facility] Physician-Vascular Surgery Dept Start: 11-11-2019 End: 11-11-2019 Patient encounter procedure KATHY BUCHANAN -Vascular Surgery Dept Start: 10-01-2019 End: 10-01-2019 Admission to day surgery KATHY BUCHANAN -[facility] Surgery 1st Floor Start: 09-24-2019 End: 09-24-2019 Patient encounter procedure KATHY BUCHANAN -Preadmission Testing Procedures Date Procedure Procedure Detail Performing Clinician Start: 12-03-2024 Plain X-ray of shoulder Dr. Bella Oneal MD Work Phone: Start: 10-01-2019 Arteriovenous fistulization KATHY BUCHANAN Start: 10-01-2019 Procedure involving peritoneal dialysis catheter KATHY BUCHANAN Start: 09-24-2019 Diagnostic radiograp hy of chest, combined PA and lateral KATHY BUCHANAN Amputation above-knee PHY RE FERRING Comment on above: bilateral Coronary artery bypa ss graft PHY REFERRING Fistula (morphologic abnormality) PHY REFERRING Hernia repair PHY REFERRING History of coronary artery bypass grafting History of coronary artery bypass graft x 3 Dr. Bella Oneal MD Work Phone: History of coronary artery bypass grafting History of coronary artery bypass graft x 3 Dr. Tiburcio Osborne MD Plan of Treatment Date Care Activity Detail Author Start: 12-08-2024 Evaluation of diagno [facility] study results [facility] MR Lower Extremity [facility] Patient Education [facility] Work Phone: Patient referral [facility] Work Phone: Immunizations Immunization Date Immunization Notes Care Provider Rylan marsh 12-28-2013 tetanus toxoid, redu dandre diphtheria toxoid, and acellular pertussis vaccine, adsorbed Erik Hargrove Other [employer] Other Payers Date Payer Category Payer Medicaid [id number] 2023 Medicaid [id number] 2022 Self-pay [id number] 2017 Medicaid [id number] 9bb [id number] 1974 Unknown [id number] 2.16. 840.1.226691.3.579.2.627 1974 Unknown [id number] 2.16.8 40.1.386446.3.579.2.627 1974 Unknown [id number] 2.16. 840.1.460656.3.579.2.627 1974 Unknown [id number] 2.16.8 40.1.265537.3.579.2.627 Unknown [id number] 2.16. 840.1.234717.3.579.2.512 Unknown [id number] 2.16. 840.1.939984.3.579.2.512 Unknown [id number] 2.16. 840.1.524423.3.579.2.512 Unknown [id number] 2.16. 840.1.232961.3.579.2.512 Unknown [id number] 2.16. 840.1.840973.3.579.2.512 Unknown [id number] 2.16. 840.1.247354.3.579.2.512 Unknown [id number] 2.16. 840.1.738790.3.579.2.512 Unknown [id number] 2.16. 840.1.126804.3.579.2.512 Unknown [id number] 2.16. 840.1.473461.3.579.2.512 Unknown [id number] 2.16. 840.1.349788.3.579.2.512 Unknown [id number] 2.16. 840.1.696164.3.579.2.512 Unknown [id number] 2.16. 840.1.295407.3.579.2.512 Unknown [id number] 2.16. 840.1.115020.3.579.2.512 Unknown [id number] 2.16. 840.1.448267.3.579.2.512 Unknown [id number] 2.16. 840.1.431655.3.579.2.512 Unknown [id number] 2.16. 840.1.768276.3.579.2.512 Unknown [id number] 2.16. 840.1.359707.3.579.2.512 Unknown [id number] 2.16. 840.1.512384.3.579.2.512 Unknown [id number] 2.16. 840.1.838151.3.579.2.512 Unknown [id number] 2.16. 840.1.608151.3.579.2.512 Unknown [id number] 2.16. 840.1.433696.3.579.2.512 Unknown [id number] 2.16. 840.1.987819.3.579.2.512 Unknown [id number] 2.16. 840.1.685164.3.579.2.512 Unknown [id number] 2.16. 840.1.070875.3.579.2.512 Unknown [id number] 2.16. 840.1.064166.3.579.2.512 Unknown [id number] 2.16. 840.1.940027.3.579.2.512 Unknown [id number] 2.16. 840.1.096993.3.579.2.512 Unknown [id number] 2.16. 840.1.398162.3.579.2.512 Unknown [id number] 2.16. 840.1.040538.3.579.2.512 Unknown [id number] 2.16. 840.1.068132.3.579.2.512 Unknown [id number] 2.16. 840.1.454682.3.579.2.512 Unknown [id number] 2.16. 840.1.417349.3.579.2.512 Unknown [id number] 2.16.8 40.1.046990.3.579.2.462 Unknown [id number] 2.16.8 40.1.155694.3.579.2.462 Unknown [id number] 2.16.8 40.1.430485.3.579.2.462 Unknown [id number] 2.16.8 40.1.547540.3.579.2.462 Unknown [id number] 2.16.8 40.1.661920.3.579.2.462 Unknown [id number] 2.16.8 40.1.233883.3.579.2.462 Unknown [id number] 2.16.8 40.1.434172.3.579.2.462 Unknown [id number] 2.16.8 40.1.833510.3.579.2.462 Unknown [id number] 2.16.8 40.1.042266.3.579.2.462 Unknown [id number] 2.16.8 40.1.577190.3.579.2.462 Unknown [id number] 2.16.8 40.1.515755.3.579.2.462 Unknown [id number] 2.16.8 40.1.542575.3.579.2.462 Unknown [id number] 2.16.8 40.1.176365.3.579.2.462 Unknown [id number] 2.16.8 40.1.301608.3.579.2.462 Unknown [id number] 2.16.8 40.1.535987.3.579.2.462 Social History Date Type Detail Facility Start: 11-11-2019 End: 07-22-2024 Tobacco smoking status NHIS Ex-smoker (finding) [facility] Start: 09-25-2019 No [facility] Start: 11-11-2019 Former Smoker [facility] Start: 09-25-2019 Yes [facility] Work Phone: Start: 09-25-2019 20 [facility] Start: 11-11-2019 [facility] Start: 1975 Sex Assigned At Male [facility] Sex Assigned At Male [facility] Other Tobacco smoking status Smokeless tobacco user within last 30 days [facility] Sexual Orientation [facility] isabella [facility] Sex Male (finding) [facility] Medical Equipment Procedure Code Equipment Code Equipment Origin al Text Equipment Identifier Dates Placement of venous hemodialysis catheter CATHETER DURAMAX HEMO 28cm FDA Start: 10-05-2020 Placement of venous hemodialysis catheter CATHETER DURAMAX HEMO 28cm FDA Start: 10-05-2020 Placement of venous hemodialysis catheter CATHETER DURAMAX HEMO 28cm FDA Start: 10-05-2020 Placement of venous hemodialysis catheter CATHETER DURAMAX HEMO 28cm FDA Start: 10-05-2020 Placement of venous hemodialysis catheter CATHETER DURAMAX HEMO 28cm FDA Start: 10-05-2020 Placement of venous hemodialysis catheter CATHETER DURAMAX HEMO 28cm FDA Start: 10-05-2020 Placement of venous hemodialysis catheter CATHETER DURAMAX HEMO 28cm FDA Start: 10-05-2020 Placement of venous hemodialysis catheter CATHETER DURAMAX HEMO 28cm FDA Start: 10-05-2020 Placement of venous hemodialysis catheter CATHETER DURAMAX HEMO 28cm FDA Start: 10-05-2020 Placement of venous hemodialysis catheter CATHETER DURAMAX HEMO 28cm FDA Start: 10-05-2020 Placement of venous hemodialysis catheter CATHETER DURAMAX HEMO 28cm FDA Start: 10-05-2020 Placement of venous hemodialysis catheter CATHETER DURAMAX HEMO 28cm FDA Start: 10-05-2020 Placement of venous hemodialysis catheter CATHETER DURAMAX HEMO 28cm FDA Start: 10-05-2020 Placement of venous hemodialysis catheter CATHETER DURAMAX HEMO 28cm FDA Start: 10-05-2020 Placement of venous hemodialysis catheter CATHETER DURAMAX HEMO 28cm FDA Start: 10-05-2020 Insertion of peritoneal dialysis catheter FDA Start: 10-01-2019 Insertion of peritoneal dialysis catheter CATH,PERITONEAL BREE 62CM FDA Start: 10-01-2019 Insertion of peritoneal dialysis catheter CATH,PERITONEAL BREE 62CM FDA Start: 10-01-2019 Insertion of peritoneal dialysis catheter CATH,PERITONEAL BREE 62CM FDA Start: 10-01-2019 Insertion of peritoneal dialysis catheter CATH,PERITONEAL BREE 62CM FDA Start: 10-01-2019 Insertion of peritoneal dialysis catheter CATH,PERITONEAL BREE 62CM FDA Start: 10-01-2019 Insertion of peritoneal dialysis catheter CATH,PERITONEAL BREE 62CM FDA Start: 10-01-2019 Insertion of peritoneal dialysis catheter CATH,PERITONEAL BREE 62CM FDA Start: 10-01-2019 Insertion of peritoneal dialysis catheter CATH,PERITONEAL BREE 62CM FDA Start: 10-01-2019 Insertion of peritoneal dialysis catheter CATH,PERITONEAL BREE 62CM FDA Start: 10-01-2019 Insertion of peritoneal dialysis catheter CATH,PERITONEAL BREE 62CM FDA Start: 10-01-2019 Insertion of peritoneal dialysis catheter CATH,PERITONEAL BREE 62CM FDA Start: 10-01-2019 Insertion of peritoneal dialysis catheter CATH,PERITONEAL BREE 62CM FDA Start: 10-01-2019 Insertion of peritoneal dialysis catheter CATH,PERITONEAL BREE 62CM FDA Start: 10-01-2019 Insertion of peritoneal dialysis catheter CATH,PERITONEAL BREE 62CM FDA Start: 10-01-2019 Insertion of peritoneal dialysis catheter CATH,PERITONEAL BREE 62CM FDA Start: 10-01-2019 Insertion of peritoneal dialysis catheter CATH,PERITONEAL BREE 62CM FDA Start: 10-01-2019 Pen [place] 5/16 31G X 8 MM Start: 02-01-2022 Goals Date Patient Goal Desired Activity /State Functional Status Date Assessment Result Facility 07-23-2024 Functional Status Room check performed [facility] 07-23-2024 Functional Status [facility] 07-23-2024 Functional Status [facility] 07-23-2024 Functional Status Nurse Safety C gamaliel q2hrs Performed Other: [id number] [facility] 07-22-2024 Functional Status [facility] 07-22-2024 Functional Status [facility] 07-22-2024 Functional Status Done [facility] 07-22-2024 Functional Status [facility] 07-22-2024 Functional Status [facility] 07-22-2024 Functional Status Standard Safet y ID band on, Call device within reach, Bed in low position, Wheels locked, personal items within reach, Bedside Cart Locked, Visitor at bedside, Safety level maintained [facility] Mental Status Date Assessment Result Facility 07-23-2024 Mental Status Oriented x [address] [facility] 07-23-[address] [facility] 07-22-2024 Mental Status Orientation Asse ssment Oriented x 4 [facility] 07-22-[address] [facility] 07-22-2024 Mental Status Orientation Oriented x 4 [facility] Clinical Notes 07-12-2021 to 12-17-2024 Note Date & Type Note Facility 12-17-2024 Note ORIGINAL PROCEDURE: ULTRASOUND EVALUATION FOR PARACENTESIS CLINICAL STATEMENT: Abdominal distention, loculated ascites. No previous imaging available for review. FINDINGS: No free peritoneal fluid is identified. Walled-off area in the low pelvis felt to reflect loculated ascites vs pelvic mass. No previous imaging available for review, therefore difficult to determine the safety of the procedure. IMPRESSION: 1. Walled off area in the low pelvis felt to reflect loculated ascites with very thick septations vs complex cystic mass. 2. No previous imaging available for review, therefore difficult to determine the safety of the procedure. Procedure deferred at this time. Findings were discussed with the patient. 3. Recommend CT abdomen/pelvis with IV and oral contrast to further evaluate. This procedure was performed by Lynnette Quintero PA-C. The patient was scanned by the attending physician. Interpreted by: Fabby Griffin MD Preliminary Report By: Lynnette Quintero PA-C Electronically signed By Fabby Griffin MD Dictated Date: 12/17/2024 3:26:09 PM Prelim Date: 12/17/2024 3:31:17 PM Sign Date: 12/17/2024 9:35:41 PM Ordering Provider: [facility] 12-17-2024 Note Leta Lee: SIGN, AUTHOR, PERFORM Event Display: US Procedure Record Authored Date: [id number] US Procedure Record Summary Primary Physician: Finalized Date/Time: 12/17/24 13:13:04 Pt. Name: AGUSTO MONSALVE/Sex: 1975 Male Med Rec #: [id number] Physician: Financial #: [id number] Pt. Type: O Room/Bed: / Admit/Disch: 12/17/24 09:44:00 - Institution: Allergies identified in patient's electronic medical record at time of printing on 12/17/24 Entry 1 Substance NKA Reaction Type Allergy Last Modified By: Jessica Powell RN 07/22/24 02:52:44 Case Attendance- US Entry 1 Entry 2 Entry 3 Case Attendee LYNNETTE QUINTERO Technician KAR, MITRYAN MD PA-C Kelly J Role Performed Radiology PA/ Circulating Technologist Radiologist Procedure Details Time In 12/17/24 10:45:00 12/17/24 10:45:00 12/17/24 11:00:00 Time Out 12/17/24 11:15:00 12/17/24 11:15:00 12/17/24 11:10:00 Procedure/Preference Case Cancelled After in Case Cancelled After in Case Cancelled After in Card Room/Induction Room/Induction Room/Induction Last Modified By: Leta Lee Technician Fitzelle, Technician Kelly J 12/17/24 Yesy Prieto 12/17/24 Yesy Prieto 12/17/24 13:04:43 13:04:43 13:04:43 Radiology Procedures- US Entry 1 Procedure/Preference Case Cancelled After in Actual Procedure case cancelled per Card Room/Induction Fabby Griffin and Lynnette Quintero PA-C. No free fluid seen in abdomen, Patient needs CT to evaluate complex area mid abdomen Primary Procedure Yes Primary Surgeon FABBY GRIFFIN MD Anesthesia/Sedation None Type Additional Procedure Times Start 12/17/24 11:00:00 Stop 12/17/24 11:01:00 Specialty Service SN Radiology Procedure EBL 0 mL Last Modified By: Leta Lee 12/17/24 13:04:53 General Case Data- US Entry 1 Case Information Room US 4 Case Level IR Level 2 Wound Class None Specialty SN Radiology Procedure ASA Class None Diagnosis Preop Diagnosis ascites Postop Same As Preop No Postop Diagnosis case cancelled Last Modified By: Leta Lee 12/17/24 13:02:14 Case Times- US Entry 1 Patient In Procedure Patient In OR 12/17/24 10:45:00 Patient Out of OR 12/17/24 11:15:00 Procedure Start/Stop Procedure Start Time 12/17/24 11:00:00 Procedure Stop Time 12/17/24 11:01:00 Last Modified By: Leta Lee 12/17/24 13:01:17 Case Comments <None> Finalized By: Leta Lee Document Signatures Signed By: Leta Lee 12/17/24 13:13 [facility] 12-17-2024 Note US Procedure Record Summary Primary Physician: Finalized Date/Time: 12/17/24 13:13:04 Pt. Name: AGUSTO MONSALVE Reba/Sex: 1975 Male Med Rec #: [id number] Physician: Financial #: [id number] Pt. Type: O Room/Bed: / Admit/Disch: 12/17/24 09:44:00 - Institution: Allergies identified in patient's electronic medical record at time of printing on 12/17/24 Entry 1 Substance NKA Reaction Type Allergy Last Modified By: Jessica Powell RN 07/22/24 02:52:44 Case Attendance- US Entry 1 Entry 2 Entry 3 Case Attendee LYNNETTE QUINTERO, FABBY Clemente MD, PA-C Role Performed Radiology PA/RA Circulating Technologist Radiologist Procedure Details Time In 12/17/24 10:45:00 12/17/24 10:45:00 12/17/24 11:00:00 Time Out 12/17/24 11:15:00 12/17/24 11:15:00 12/17/24 11:10:00 Procedure/Preference Case Cancelled After in Case Cancelled After in Case Cancelled After in Card Room/Induction Room/Induction Room/Induction Last Modified By: Leta Lee, Senior Environmental TechnicianLeta Dao 12/17/24 Yesy Prieto 12/17/24 Yesy Prieto 12/17/24 13:04:43 13:04:43 13:04:43 Radiology Procedures- US Entry 1 Procedure/Preference Case Cancelled After in Actual Procedure case cancelled per Card Room/Induction Fabby Griffin and Lynnette Quintero PA-C. No free fluid seen in abdomen, Patient needs CT to evaluate complex area mid abdomen Primary Procedure Yes Primary Surgeon FABBY GRIFFIN MD Anesthesia/Sedation None Type Additional Procedure Times Start 12/17/24 11:00:00 Stop 12/17/24 11:01:00 Specialty Service SN Radiology Procedure EBL 0 mL Last Modified By: Leta Lee 12/17/24 13:04:53 General Case Data- US Entry 1 Case Information Room US 4 Case Level IR Level 2 Wound Class None Specialty SN Radiology Procedure ASA Class None Diagnosis Preop Diagnosis ascites Postop Same As Preop No Postop Diagnosis case cancelled Last Modified By: Leta Lee 12/17/24 13:02:14 Case Times- US Entry 1 Patient In Procedure Patient In OR 12/17/24 10:45:00 Patient Out of OR 12/17/24 11:15:00 Procedure Start/Stop Procedure Start Time 12/17/24 11:00:00 Procedure Stop Time 12/17/24 11:01:00 Last Modified By: Leta Lee 12/17/24 13:01:17 Case Comments Finalized By: Leta Lee Document Signatures Signed By: Leta Lee 12/17/24 13:13 [facility] 12-17-2024 Note Exam Date Time Procedure Performing Provider Status 12/17/24 11:35 AM US Abdomen for Ascites FABBY GRIFFIN MD ; Auth (Verified) [id number] ORIGINAL PROCEDURE: ULTRASOUND EVALUATION FOR PARACENTESIS CLINICAL STATEMENT: Abdominal distention, loculated ascites. No previous imaging available for review. FINDINGS: No free peritoneal fluid is identified. Walled-off area in the low pelvis felt to reflect loculated ascites vs pelvic mass. No previous imaging available for review, therefore difficult to determine the safety of the procedure. IMPRESSION: 1. Walled off area in the low pelvis felt to reflect loculated ascites with very thick septations vs complex cystic mass. 2. No previous imaging available for review, therefore difficult to determine the safety of the procedure. Procedure deferred at this time. Findings were discussed with the patient. 3. Recommend CT abdomen/pelvis with IV and oral contrast to further evaluate. This procedure was performed by Lynnette Quintero PA-C. The patient was scanned by the attending physician. Interpreted by: Fabby Griffin MD Preliminary Report By: Lynnette Quintero PA-C Electronically signed By Fabby Griffin MD Dictated Date: 12/17/2024 3:26:09 PM Prelim Date: 12/17/2024 3:31:17 PM Sign Date: 12/17/2024 9:35:41 PM Ordering Provider: [facility]05-27-2025 Progress [facility] [place] [address] [address] [place] [address] OFFICE VISIT Date of Service: 12/08/24 MR#: [id number] Acct: [id number] Name: AGUSTO MONSALVE Rep #: [id number] : 1975 Provider: Dr. Sebastien Osborne MD Age/Sex: 49/M Location: [facility] Status: Signed HPI HPI History of Present Illness Details: This gentleman has been referred to us for establishing cardiac care. Patient has a complex past medical history. 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 Patient denies any chest pains. He has occasional shortness of breath. Denies orthopnea or PND. Denies any palpitations. He has been prescribed midodrine asaccording to him, sometimes his blood pressure drops. Denies any history of CVA or TIA. Denies any history of abnormal bleeding. Intake Vital Signs 02/09/24 15:14 12/08/24 08:32 Height 4 ft 11 in 4 ft 11 in Weight: 240 lb BMI 48.4 BP 131/88 H Blood Pressure Location Lt brachial Position Sitting Respiration 18 Pulse 103 H Pulse Source NIBP Intake Visit Reasons: Abnormal EKG Pulverizing And Sifting Operator Required: No Accompanied by: Self Is patient in pain?: No Allergies No Known Allergies Allergy (Verified 12/08/24 11:18) Medications ?Medication ?Instructions ?Recorded ?Confirmed ?Type diphenhydramine HCl 25 mg capsule 25 mg PO QHS 4 12/03/24 History (Banophen) fluticasone 250 mcg-salmeterol 50 1 ea inhalation BID 12/17/23 12/03/24 History mcg/dose blistr powdr for inhalation (Advair Diskus) fluticasone propionate 50 intranasal 12/17/23 12/03/24 History mcg/actuation nasal spray,suspension gabapentin 300 mg capsule 300 mg PO QDAY 12/17/2311/13 History handicap placard #1 ea 12/17/23 12/08/24 Rx sodium chloride 0.65 % nasal spray spray intranasal 12/03/24 History aerosol (Deep Sea Nasal) atorvastatin 40 mg tablet 40 mg PO QDAY #90 tabs 12/2312/03/24 Rx cyclobenzaprine 10 mg tablet 10 mg PO QHS #90 tabs 06/0712/03/24 Rx lidocaine 4 % topical patch 1 patch topical DAILY PRN pain #30 12/24/23 12/03/24 Rx (Lidocaine Pain Relief) ea magnesium oxide 400 mg (241.3 mg 400 mg PO TID #90 tab s 12/24/23 12/03/24 Rx magnesium) tablet melatonin 5 mg tablet 5 mg PO QHS #90 tabs 4 12/03/24 Rx tamsulosin 0.4 mg capsule 0.4 mg PO QDAY #90 caps 12/1312/03/24 Rx flash glucose scanning reader #1 ea 01/09/24 12/08/24 Rx (FreeStyle Bianca 2 [place]) flash glucose sensor (FreeStyle #1 ea 01/09/24 5 Rx Bianca 2 Sensor kit) miscellaneous medical supply 1 ea miscellaneous DIR ECTED #6 01/09/24 12/08/24 Rx ea miscellaneous medical supply 1 ea miscellaneous DIR ECTED 01/09/24 12/08/24 Rx bowel incontinence #1 ea incontinence pad, liner, disp #80 ea 01/14/24 12/08/24 Rx acetaminophen 500 mg tablet 1,000 mg PO Q8H PRN PRN 12/03/24 History (Tylenol Extra Strength) amlodipine 5 mg tablet 5 mg PO SUTUTHSA 11/24/24 History ciclopirox 8 % topical solution topical 11/24/2412/03 History famotidine 40 mg tablet 40 mg PO QDAY 11/24/2412/03 History hydralazine 50 mg tablet 50 mg PO .COMPLEX 11/24/24 0 12/03/24 History hydralazine 50 mg tablet 50 mg PO QPM 11/24/24 History lidocaine HCl 4 % topical cream 1 applic topical BID 0 11/24/24 12/03/24 History (Aspercreme (lidocaine HCl)) loperamide 2 mg tablet mg PO 11/24/24 12/03/24 Hist ory (Anti-Diarrheal (loperamide)) midodrine 10 mg tablet 10 mg PO MOWEFR 11/24/24 History midodrine 5 mg tablet 5 mg PO .COMPLEX 11/24/24 History nystatin 100,000 unit/gram topical applic topical 11/1212/03/24 History ointment ondansetron HCl 4 mg tablet 8 mg PO DAILY 11/24/24 History pantoprazole 40 mg tablet,delayed 40 mg PO BID 5 12/08/24 History release polyethylene glycol 3350 17 g PO QDAY 11/24/24 5 History gram/dose oral powder Ejection fraction %: 40 Have you fallen in the past year?: No PFSH Medical History (Updated 12/08/24 @ 12:[address] Tiburcio Osborne MD) Left shoulder pain Sleep apnea Unspecified viral hepatitis B without hepatic coma Hypotension Tachycardia GERD (gastroesophageal reflux disease) Cataracts, bilateral Hypocalcemia Hepatitis IBS (irritable bowel syndrome) Peritoneal dialysis catheter site infection CAD (coronary artery disease) Peritonitis Recurrent UTI Urinary retention Neuropathy COPD (chronic obstructive pulmonary disease) Hyperlipidemia due to type 2 diabetes mellitus Hypertension Dialysis patient Diabetes Surgical History (Updated 12/08/24 @ 12:[address] Tiburcio Osborne MD) History of left heart catheterization (05/18/19) S/P bilateral BKA (below knee amputation) Port-A-Cath in place S/P arteriovenous (AV) fistula creation Hx of CABG (~2018) Amputation leg, bilat H/O local excision of skin lesion H/O hernia repair Family History Father Heart disease Hypertension Hyperlipidemia Grandmother Heart disease Diabetes Mother MVA (motor vehicle accident) Brother Cancer lymphoma Social History adopted: No household members: family and other details: niece and niece's number of children: 4 current occupational status: disabled pets and animals: Yes pets and animals: cat(s) and dog(s) Smoking Status: Former smoker quit date: 07/15/18 pack-years: 70 Tobacco: How many years used: 35 Electronic Cigarette Use: not used alcohol intake: former details: 07/15/2018 substance use type: does not use, former substance user Date of last use: 07/15/2006 and crack/cocaine frequency: does not exercise do you feel safe at home: Yes ROS Const Const: Negative for fatigue, weakness, headache(s) or weight gain ENT ENT: Negative for headache(s), dizziness, Nosebleed/epistaxis or balance problems Cardio Chest Pain: No Palpitations: No Edema: None Muscle aches with walking: None Resp Respiratory: Positive for SOB with activity (with exertion and fluid buildup perpt); Negative for SOB at rest or SOB orthopneaundefinedSOB lying down GI GI: Negative nausea, vomiting or heartburn Musc Musc: Negative for muscle aches/ myalgia, muscle weakness, joint pain or balanceproblems Neuro Neuro: Negative for dizziness, lightheadedness, near syncope, syncope, headache(s) or weakness Endo Endo: Negative for fatigue Cardiology Exam Const Appearance: comfortable and no acute distress Nutritional Appearance: well nourished Neck Neck: no JVD Carotids: Negative bruit Chest Auscultation: Bilateral: Clear to Auscultation Cardio Rate: tachycardic Rhythm: irregular rhythm Heart sounds: S1 normal and S2 normal Neuro General: patient alert, patient awake and patient oriented x3 Extremities Bilateral BKA. Supplemental Info Supplemental Information Echocardiogram 05/08/2022 Conclusions Depressed left ventricular systolic function with an EF of 40-45% Mildly dilated left ventricle Mild concentric left ventricular hypertrophy Moderate tricuspid regurgitation. Severe elevation of pulmonary pressures. Sclerotic aortic valve. Echocardiogram 01/08/2019 Conclusions: EF 60% 1. Normal left ventricular systolic function. 2. Mild mitral regurgitation. 3. Mild tricuspid regurgitation. 4. Mild left ventricular hypertrophy. 5. Mildly dilated left ventricle. Cardiac Catheterization 05/18/2019 Interpretation Summary Severe lime coronary artery disease. Moderately depressed left ventricular systolic function. Patient will be referred for evaluation for coronary artery bypass grafting. Diagnostic Left main The vessel was visualized by angiography, is moderate in size and is angiographically normal. Left Anterior Descending The vessel was visualized by angiography. Mid LAD lesion is 85% stenosed. First Diagonal Branch 1st diagonal branch is 80% stenosed. Small. Second Diagonal Branch 2nd Diagonal lesion is 80% stenosed. Moderate in size, Proximal lesion. Left Circumflex The vessel was visualized by angiography. Proximal Cx lesion is 30% stenosed. Second Obtuse Marginal Branch 2nd Mrg lesion is 60% stenosed. Right Coronary Artery The vessel was visualized by angiography and is small. Prox RCA lesion is 90% stenosed. Small non dominant. Stress test 05/14/2019 Interpretation Summary Old infarcts. No definite ischemia. EF 37% with global hypokinesia. Negative ECG pharmacological stress test myocardial ischemia. No chest pain consistent angina pectoris. No dysrhythmias. Assessment and Plan Assessment and Plan (1) Atrial fibrillation: Status: Acute Plan: ECG done in the office today shows atrial fibrillation with rapid ventricular response. Right bundle branch block. Discussed thromboembolic risk in detail with the patient. Chronic oral anticoagulation discussed. Risks and benefits explained. He has a high CHADS2?VASc score. However the bleeding risks and dialysis patient was also discussed at length. He understands these. With mutual consent, it is agreed to start him on aspirin only. Start on metoprolol extended release for rate control. (2) CAD (coronary artery disease): Status: Chronic Plan: History of CABG with MEJIA to the LAD and SVGs to the obtuse marginal and diagonal. Start aspirin asnoted above. Risk factor modification. Beta-blockers. (3) History of coronary artery bypass graft x 3: Status: Chronic Plan: MEJIA to the LAD and SVG to the obtuse marginal and diagonal in 2019. See #2 above. (4) Hypertension: Status: Chronic Plan: As I am starting the patient on metoprolol extended release, I will DC hydralazine. It is also noted that the patient has history of orthostatic hypotension for which she remains on midodrine on Wednesdays and Fridays. Patient will call us with his next blood pressure and heart rate readings at hemodialysis. If his blood pressure starts running on the lower side, then willdiscontinue amlodipine. (5) Left ventricular systolic dysfunction (LVSD), NYHA class 2: Status: Chronic Plan: Repeat echocardiogram. Start on beta-blockers. (6) End stage renal disease: Status: Chronic Plan: On hemodialysis. (7) Dyslipidemia: Status: Chronic Plan: On atorvastatin. Continue to follow as per PCP. (8) Diabetes: Status: Chronic Plan: As per PCP. (9) S/P bilateral BKA (below knee amputation): Status: Chronic Orders: Orders 12 Lead EKG performed by [facility] Today Dr. Tiburcio Osborne MD I10 - Essential (primary) hypertension, I25.10 - Atherosclerotic heart disease of lime coronary artery without angina pectoris, R00.0 - Tachycardia, unspecified Medications: Changed From ondansetron HCl Patient takes before dialysis; Saturday, Saturday, Saturday 4 mg PO DAILY 90 tabs 0RF To ondansetron HCl Patient takes before dialysis; Saturday, Saturday, Saturday [address] Bella Oneal MD From pantoprazole 40 mg PO QDAY 90 tabs 0RF To pantoprazole [address] Bella Oneal MD Coding Level of Care Code Off vis,new,level 4 Diagnoses Atrial fibrillation I48.91 CAD (coronary artery disease) I25.10 History of coronary artery bypass graft x 3 Z95.1 Hypertension I10 Left ventricular systolic dysfunction (LVSD), NYHA class 2 I51.89 End stage renal disease N18.6 Dyslipidemia E78.5 Diabetes E11.9 S/P bilateral BKA (below knee amputation) Z89.512; Z89.511 Coding Level of Care Code Off vis,new,level 4 Diagnoses Atrial fibrillation I48.91 CAD (coronary artery disease) I25.10 History of coronary artery bypass graft x 3 Z95.1 Hypertension I10 Left ventricular systolic dysfunction (LVSD), NYHA class 2 I51.89 End stage renal disease N18.6 Dyslipidemia E78.5 Diabetes E11.9 S/P bilateral BKA (below knee amputation) Z89.512; Z89.511 Clinical Quality Measures Falls Risk Screening/Assistive Devices Have you fallen in the past year?: No Cardiac Ejection fraction %: 40 12/08/24 1203 > Date _ Tiburcio Osborne MD Cosigner Signature: Date (if applicable) CC: Kayleen Pederson MD ~ [facility]05-27-2025 Progress note Author Tiburcio Osborne [facility] Note Date/Time December 08, 2024 12:03 pm [facility] [address] [place] [address] OFFICE VISIT Date of Service: 12/08/24 MR#: [id number] Acct: [id number] Name: AGUSTO MONSALVE Rep #: [id number] : 1975 Provider: Dr. Sebastien Osborne MD Age/Sex: 49/M Location: [facility] Status: Signed HPI HPI History of Present Illness Details: This gentleman has been referred to us for establishing cardiac care. Patient has a complex past medical history. 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 Patient denies any chest pains. He has occasional shortness of breath. Denies orthopnea or PND. Denies any palpitations. He has been prescribed midodrine asaccording to him, sometimes his blood pressure drops. Denies any history of CVA or TIA. Denies any history of abnormal bleeding. Intake Vital Signs 02/09/24 15:14 12/08/24 08:32 Height 4 ft 11 in 4 ft 11 in Weight: 240 lb BMI 48.4 BP 131/88 H Blood Pressure Location Lt brachial Position Sitting Respiration 18 Pulse 103 H Pulse Source NIBP Intake Visit Reasons: Abnormal EKG Pulverizing And Sifting Operator Required: No Accompanied by: Self Is patient in pain?: No Allergies No Known Allergies Allergy (Verified 12/08/24 11:18) Medications ?Medication ?Instructions ?Recorded ?Confirmed ?Type diphenhydramine HCl 25 mg capsule 25 mg PO QHS 4 12/03/24 History (Banophen) fluticasone 250 mcg-salmeterol 50 1 ea inhalation BID 12/17/23 12/03/24 History mcg/dose blistr powdr for inhalation (Advair Diskus) fluticasone propionate 50 intranasal 12/17/23 12/03/24 History mcg/actuation nasal spray,suspension gabapentin 300 mg capsule 300 mg PO QDAY 12/17/2311/13 History handicap placard #1 ea 12/17/23 12/08/24 Rx sodium chloride 0.65 % nasal spray spray intranasal 12/03/24 History aerosol (Deep Sea Nasal) atorvastatin 40 mg tablet 40 mg PO QDAY #90 tabs 12/2312/03/24 Rx cyclobenzaprine 10 mg tablet 10 mg PO QHS #90 tabs 06/0712/03/24 Rx lidocaine 4 % topical patch 1 patch topical DAILY PRN pain #30 12/24/23 12/03/24 Rx (Lidocaine Pain Relief) ea magnesium oxide 400 mg (241.3 mg 400 mg PO TID #90 tab s 12/24/23 12/03/24 Rx magnesium) tablet melatonin 5 mg tablet 5 mg PO QHS #90 tabs 4 12/03/24 Rx tamsulosin 0.4 mg capsule 0.4 mg PO QDAY #90 caps 12/1312/03/24 Rx flash glucose scanning reader #1 ea 01/09/24 12/08/24 Rx (FreeStyle Bianca 2 [place]) flash glucose sensor (FreeStyle #1 ea 01/09/24 5 Rx Bianca 2 Sensor kit) miscellaneous medical supply 1 ea miscellaneous DIR ECTED #6 01/09/24 12/08/24 Rx ea miscellaneous medical supply 1 ea miscellaneous DIR ECTED 01/09/24 12/08/24 Rx bowel incontinence #1 ea incontinence pad, liner, disp #80 ea 01/14/24 12/08/24 Rx acetaminophen 500 mg tablet 1,000 mg PO Q8H PRN PRN 12/03/24 History (Tylenol Extra Strength) amlodipine 5 mg tablet 5 mg PO SUTUTHSA 11/24/24 History ciclopirox 8 % topical solution topical 11/24/2412/03 History famotidine 40 mg tablet 40 mg PO QDAY 11/24/2412/03 History hydralazine 50 mg tablet 50 mg PO .COMPLEX 11/24/24 0 12/03/24 History hydralazine 50 mg tablet 50 mg PO QPM 11/24/24 History lidocaine HCl 4 % topical cream 1 applic topical BID 0 11/24/24 12/03/24 History (Aspercreme (lidocaine HCl)) loperamide 2 mg tablet mg PO 11/24/24 12/03/24 Hist ory (Anti-Diarrheal (loperamide)) midodrine 10 mg tablet 10 mg PO MOWEFR 11/24/24 History midodrine 5 mg tablet 5 mg PO .COMPLEX 11/24/24 History nystatin 100,000 unit/gram topical applic topical 11/1212/03/24 History ointment ondansetron HCl 4 mg tablet 8 mg PO DAILY 11/24/24 History pantoprazole 40 mg tablet,delayed 40 mg PO BID 5 12/08/24 History release polyethylene glycol 3350 17 g PO QDAY 11/24/24 5 History gram/dose oral powder Ejection fraction %: 40 Have you fallen in the past year?: No PFSH Medical History (Updated 12/08/24 @ 12:[address] Tiburcio Osborne MD) Left shoulder pain Sleep apnea Unspecified viral hepatitis B without hepatic coma Hypotension Tachycardia GERD (gastroesophageal reflux disease) Cataracts, bilateral Hypocalcemia Hepatitis IBS (irritable bowel syndrome) Peritoneal dialysis catheter site infection CAD (coronary artery disease) Peritonitis Recurrent UTI Urinary retention Neuropathy COPD (chronic obstructive pulmonary disease) Hyperlipidemia due to type 2 diabetes mellitus Hypertension Dialysis patient Diabetes Surgical History (Updated 12/08/24 @ 12:[address] Tiburcio Osborne MD) History of left heart catheterization (05/18/19) S/P bilateral BKA (below knee amputation) Port-A-Cath in place S/P arteriovenous (AV) fistula creation Hx of CABG (~2018) Amputation leg, bilat H/O local excision of skin lesion H/O hernia repair Family History Father Heart disease Hypertension Hyperlipidemia Grandmother Heart disease Diabetes Mother MVA (motor vehicle accident) Brother Cancer lymphoma Social History adopted: No household members: family and other details: niece and niece's number of children: 4 current occupational status: disabled pets and animals: Yes pets and animals: cat(s) and dog(s) Smoking Status: Former smoker quit date: 07/15/18 pack-years: 70 Tobacco: How many years used: 35 Electronic Cigarette Use: not used alcohol intake: former details: 07/15/2018 substance use type: does not use, former substance user Date of last use: 07/15/2006 and crack/cocaine frequency: does not exercise do you feel safe at home: Yes ROS Const Const: Negative for fatigue, weakness, headache(s) or weight gain ENT ENT: Negative for headache(s), dizziness, Nosebleed/epistaxis or balance problems Cardio Chest Pain: No Palpitations: No Edema: None Muscle aches with walking: None Resp Respiratory: Positive for SOB with activity (with exertion and fluid buildup perpt); Negative for SOB at rest or SOB orthopneaundefinedSOB lying down GI GI: Negative nausea, vomiting or heartburn Musc Musc: Negative for muscle aches/ myalgia, muscle weakness, joint pain or balanceproblems Neuro Neuro: Negative for dizziness, lightheadedness, near syncope, syncope, headache(s) or weakness Endo Endo: Negative for fatigue Cardiology Exam Const Appearance: comfortable and no acute distress Nutritional Appearance: well nourished Neck Neck: no JVD Carotids: Negative bruit Chest Auscultation: Bilateral: Clear to Auscultation Cardio Rate: tachycardic Rhythm: irregular rhythm Heart sounds: S1 normal and S2 normal Neuro General: patient alert, patient awake and patient oriented x3 Extremities Bilateral BKA. Supplemental Info Supplemental Information Echocardiogram 05/08/2022 Conclusions Depressed left ventricular systolic function with an EF of 40-45% Mildly dilated left ventricle Mild concentric left ventricular hypertrophy Moderate tricuspid regurgitation. Severe elevation of pulmonary pressures. Sclerotic aortic valve. Echocardiogram 01/08/2019 Conclusions: EF 60% 1. Normal left ventricular systolic function. 2. Mild mitral regurgitation. 3. Mild tricuspid regurgitation. 4. Mild left ventricular hypertrophy. 5. Mildly dilated left ventricle. Cardiac Catheterization 05/18/2019 Interpretation Summary Severe lime coronary artery disease. Moderately depressed left ventricular systolic function. Patient will be referred for evaluation for coronary artery bypass grafting. Diagnostic Left main The vessel was visualized by angiography, is moderate in size and is angiographically normal. Left Anterior Descending The vessel was visualized by angiography. Mid LAD lesion is 85% stenosed. First Diagonal Branch 1st diagonal branch is 80% stenosed. Small. Second Diagonal Branch 2nd Diagonal lesion is 80% stenosed. Moderate in size, Proximal lesion. Left Circumflex The vessel was visualized by angiography. Proximal Cx lesion is 30% stenosed. Second Obtuse Marginal Branch 2nd Mrg lesion is 60% stenosed. Right Coronary Artery The vessel was visualized by angiography and is small. Prox RCA lesion is 90% stenosed. Small non dominant. Stress test 05/14/2019 Interpretation Summary Old infarcts. No definite ischemia. EF 37% with global hypokinesia. Negative ECG pharmacological stress test myocardial ischemia. No chest pain consistent angina pectoris. No dysrhythmias. Assessment and Plan Assessment and Plan (1) Atrial fibrillation: Status: Acute Plan: ECG done in the office today shows atrial fibrillation with rapid ventricular response. Right bundle branch block. Discussed thromboembolic risk in detail with the patient. Chronic oral anticoagulation discussed. Risks and benefits explained. He has a high CHADS2?VASc score. However the bleeding risks and dialysis patient was also discussed at length. He understands these. With mutual consent, it is agreed to start him on aspirin only. Start on metoprolol extended release for rate control. (2) CAD (coronary artery disease): Status: Chronic Plan: History of CABG with MEJIA to the LAD and SVGs to the obtuse marginal and diagonal. Start aspirin as noted above. Risk factor modification. Beta-blockers. (3) History of coronary artery bypass graft x 3: Status: Chronic Plan: MEJIA to the LAD and SVG to the obtuse marginal and diagonal in 2019. See #2 above. (4) Hypertension: Status: Chronic Plan: As I am starting the patient on metoprolol extended release, I will DC hydralazine. It is also noted that the patient has history of orthostatic hypotension for which she remains on midodrine on Wednesdays and Fridays. Patient will call us with his next blood pressure and heart rate readings at hemodialysis. If his blood pressure starts running on the lower side, then willdiscontinue amlodipine. (5) Left ventricular systolic dysfunction (LVSD), NYHA class 2: Status: Chronic Plan: Repeat echocardiogram. Start on beta-blockers. (6) End stage renal disease: Status: Chronic Plan: On hemodialysis. (7) Dyslipidemia: Status: Chronic Plan: On atorvastatin. Continue to follow as per PCP. (8) Diabetes: Status: Chronic Plan: As per PCP. (9) S/P bilateral BKA (below knee amputation): Status: Chronic Orders: Orders 12 Lead EKG performed by [facility] Today Dr. Tiburcio Osborne MD I10 - Essential (primary) hypertension, I25.10 - Atherosclerotic heart disease of lime coronary artery without angina pectoris, R00.0 - Tachycardia, unspecified Medications: Changed From ondansetron HCl Patient takes before dialysis; Saturday, Saturday, Saturday 4 mg PO DAILY 90 tabs 0RF To ondansetron HCl Patient takes before dialysis; Saturday, Saturday, Saturday [address] Bella Oneal MD From pantoprazole 40 mg PO QDAY 90 tabs 0RF To pantoprazole [address] Bella Oneal MD Coding Level of Care Code Off vis,new,level 4 Diagnoses Atrial fibrillation I48.91 CAD (coronary artery disease) I25.10 History of coronary artery bypass graft x 3 Z95.1 Hypertension I10 Left ventricular systolic dysfunction (LVSD), NYHA class 2 I51.89 End stage renal disease N18.6 Dyslipidemia E78.5 Diabetes E11.9 S/P bilateral BKA (below knee amputation) Z89.512; Z89.511 Coding Level of Care Code Off vis,new,level 4 Diagnoses Atrial fibrillation I48.91 CAD (coronary artery disease) I25.10 History of coronary artery bypass graft x 3 Z95.1 Hypertension I10 Left ventricular systolic dysfunction (LVSD), NYHA class 2 I51.89 End stage renal disease N18.6 Dyslipidemia E78.5 Diabetes E11.9 S/P bilateral BKA (below knee amputation) Z89.512; Z89.511 Clinical Quality Measures Falls Risk Screening/Assistive Devices Have you fallen in the past year?: No Cardiac Ejection fraction %: 40 12/08/24 1203 <Electronically signed by Tiburcio Osborne MD> Date _ Tiburcio Osborne MD Cosigner Signature: Date (if applicable) CC: Kayleen Pederson MD ~ [facility] Work Phone: 1(117) 257-353105-22-2025 Evaluation note* Diagnosis Onset Date Resolution Status Admit Date Left shoulder pain acute December 032024 12:57pm Atrial fibrillation acute November 132024 10:47am CAD (coronary artery disease) chroni c December 08, 2024 10:47am Diabetes chronic December 08, 2024 10:47am Dyslipidemia chronic December 08 10:47am End stage renal disease chronic M 2024 10:47am History of coronary artery bypass graft x 3 chronic December 08, 2024 10:47am Hypertension chronic December 08 10:47am Left ventricular systolic dysfunction (LVSD), NYHA class 2 chronic December 08, 2024 10:47am S/P bilateral BKA (below kne e amputation) chronic December 08, 2024 1 0:47am [facility] Work Phone: 1(721) 218-718901-09-2025 Hospital Discharge instructions Patient Education 07/23/2024 17:15:19 Hyperkalemia, Yzui-cl-Shqw Hyperkalemia Hyperkalemia is when you have too much potassium in your blood. Potassium helps your body in many ways, but having too much can cause problems. If there is too much potassium in your blood, it can affect how your heart works. Potassium is normally removed from your body by your kidneys. Many things can cause the amount in your blood to be high. Medicines and other treatments can be used to bring the amount to a normal level. Treatment may need to be done in the hospital. Follow these instructions at home: Take gqoy-wjl-yxcjkpb and prescription medicines only as told by your doctor. Do not take any of the following unless your doctor says it is okay: ?Supplements. ?Natural products. ?Herbs. ?Vitamins. Limit how much alcohol you drink as told by your doctor. Do not use drugs. If you need help quitting, ask your doctor. If you have kidney disease, you may need to follow a low-potassium diet. A bacteriologist food (dietitian) can help you. Keep all follow-up visits as told by your doctor. This is important. Contact a doctor if: Your heartbeat is not regular or is very slow. You feel dizzy (light-headed). You feel weak. You feel sick to your stomach (nauseous). You have tingling in your hands or feet. You lose feeling (have numbness) in your hands or feet. Get help right away if: You are short of breath. You have chest pain. You pass out (faint). You cannot move your muscles. Summary Hyperkalemia is when you have too much potassium in your blood. Take ably-eoy-gwthicx and prescription medicines only as told by your doctor. Limit how much alcohol you drink as told by your doctor. Contact a doctor if your heartbeat is not regular. This information is not intended to replace advice given to you by your health care provider. Make sure you discuss any questions you have with your health care provider. Document Released: 07/01/2006 Document Revised: 06/16/2018 Document Reviewed: 06/16/2018 [employer] Patient Education 2020 [employer]. Follow Up Care 07/22/2024 04:12:55 With:Patient is discharged to [facility]. Please call report to [phone] Address:Unknown When:1-2 days With:KEKE Pennington Address:Unknown When:1-2 days With:DANTE VANG Address: [address] [place], [place] [address]- [phone] Business (1) When:1-2 days [facility] 01-09-2025 Note Discharge Instructions Thank you for allowing [facility] to assist you with your healthcare needs. The following is importantdischarge information regarding your hospital visit. Your Care Team DANTE VANG What to do next Follow Up Appointments Follow Up with Patient is discharged to [facility]. Please call report to [phone] When:Within 1-2 days Follow Up with KEKE Pennington When:Within 1-2 days Follow Up with DANTE VANG When:Within 1-2 days Where:[address] [facility] [place] [address] [phone] Business (1) The Following Activity and Diet Have Been Ordered for You Transfer of Care Activity - Ordered -- Activity As Tolerated, 07/23/24 16:16:00 EST Transfer of Care Diet - Ordered -- Type of Diet: Regular Diet, 07/23/24 16:16:00 EST The Following Equipment Has Been Ordered for You No qualifying data available. The Following Treatments Have Been Ordered for You Discharge Labs No qualifying data available. Discharge Radiology No qualifying data available. Other Therapies No qualifying data available. Post Acute Orders Transfer of Care Code Status - Ordered -- Full Code, Constant Order Transfer of Care Orders Electronically Signed By - Ordered -- 07/23/24 16:16:00 ESTRENITA CHRISTINA E MD Transfer of Care Prognosis - Ordered -- Good, Patient Aware: Yes Transfer of Care Rehab Potential - Ordered -- Rehab potential good, 07/23/24 16:16:53 EST Someone Will Contact You Regarding These Home Health Referrals No home referrals have been ordered for you. No one will call you. Allergies NKA Medications Please ask your primary doctor or pharmacist before taking any other medication not listed, including over the counter drugs, herbal medications, vitamins and or supplements as they may interact withyour home medications. What How Much When Instructions Last Dose New predniSONE (predniSONE 20 mg oral tablet) 2 tab(s) by mouth Once a day with a meal Duration: 5 Days Last day Unchanged atorvastatin (atorvastatin 40 mg oral tablet) 1 tab(s) by mouth Every day Unchanged cyclobenzaprine (cyclobenzaprine 10 mg oral tablet) 1 tab(s) by mouth Daily at bedtime Unchanged diphenhydrAMINE (diphenhydrAMINE 25 mg oral tablet) 1 tab(s) by mouth Daily at bedtime as needed for as needed for itching For itching not insomnia Unchanged famotidine (famotidine 40 mg oral tablet) 1 tab(s) by mouth Daily at bedtime Unchanged fluticasone nasal (fluticasone proprionate NASAL 50 mcg/ spray) 1 spray(s) each nostril Once a day (in the morning) Unchanged fluticasone nasal (fluticasone proprionate NASAL 50 mcg/ spray) 1 spray(s) each nostril Two (2) times a day Unchanged fluticasone-salmeterol (Advair Diskus 250 mcg-50 mcg inhalation powder) 1 puff(s) by inhalation Two (2) times a day Unchanged gabapentin (gabapentin 300 mg oral capsule) 1 cap Once a day Unchanged insulin lispro (HumaLOG) (HumaLOG KwikPen 100 units/ mL injectable PEN) Unchanged lidocaine topical (lidocaine 4% patch) 1 patch(es) Topical Once a day as needed for Pain lower back Unchanged loperamide (loperamide 2 mg oral capsule) 1 cap by mouth Every 4 hours as needed for Diarrhea Unchanged magnesium oxide (magnesium oxide 400 mg oral tablet) 1 tab(s) by mouth Three (3) times a day Unchanged melatonin (Melatonin 5 mg oral tablet) 1 tab(s) by mouth Daily at bedtime as needed for as needed for insomnia Unchanged midodrine (midodrine 5 mg oral tablet) 1 tab(s) Three (3) times a day Unchanged nystatin topical (Mycostatin 100,000 units/ g topical ointment) 1 application Topical Four (4) times a day Unchanged ondansetron (ondansetron 4 mg oral tablet) 2 tab(s) by mouth Saturday / Saturday / Saturday Before dialysis Unchanged pantoprazole (pantoprazole 40 mg oral enteric coated tablet) 1 tab(s) by mouth Two (2) times a day Unchanged polyethylene glycol 3350 (polyethylene glycol 3350 oral powder for reconstitution) 17 gram(s) by mouth Every day as needed for Constipation Unchanged sodium chloride nasal (sodium chloride nasal spray) 1 spray(s) each nostril As Directed as needed for dry nasal passage Unchanged tamsulosin (tamsulosin 0.4 mg oral capsule) 1 cap by mouth Once a day Please take this list to your next doctor s visit. Bring all medications you take, including over the counter medications, herbals and other supplements with you to your doctor s visit. Patients and families are reminded to discard old lists and to update any records with all medication providers or retail pharmacies. Education Materials Hyperkalemia Hyperkalemia is when you have too much potassium in your blood. Potassium helps your body in many ways, but having too much can cause problems. If there is too much potassium in your blood, it can affect how your heart works. Potassium is normally removed from your body by your kidneys. Many things can cause the amount in your blood to be high. Medicines and other treatments can be used to bring the amount to a normal level. Treatment may need to be done in the hospital. Follow these instructions at home: Take ebth-zbz-ajkxrnm and prescription medicines only as told by your doctor. Do not take any of the following unless your doctor says it is okay: ? Supplements. ? Natural products. ? Herbs. ? Vitamins. Limit how much alcohol you drink as told by your doctor. Do not use drugs. If you need help quitting, ask your doctor. If you have kidney disease, you may need to follow a low-potassium diet. A bacteriologist food (dietitian) can help you. Keep all follow-up visits as told by your doctor. This is important. Contact a doctor if: Your heartbeat is not regular or is very slow. You feel dizzy (light-headed). You feel weak. You feel sick to your stomach (nauseous). You have tingling in your hands or feet. You lose feeling (have numbness) in your hands or feet. Get help right away if: You are short of breath. You have chest pain. You pass out (faint). You cannot move your muscles. Summary Hyperkalemia is when you have too much potassium in your blood. Take ypat-gnb-ffypzvm and prescription medicines only as told by your doctor. Limit how much alcohol you drink as told by your doctor. Contact a doctor if your heartbeat is not regular. This information is not intended to replace advice given to you by your health care provider. Make sure you discuss any questions you have with your health care provider. Document Released: 07/01/2006 Document Revised: 06/16/2018 Document Reviewed: 06/16/2018 Elsevier Patient Education 2020 [employer]. Additional Information VACCINATE! IT SAVES LIVES! Members of the community who have not yet received the COVID-19 vaccine and would like to receive it can visit one of [facility] vaccine clinics. There are many vaccine clinic locations within the [facility] [address]. For locations and available times, please visit [email or web address].[place].gov/. It is important to note that some COVID mobile vaccine clinics are held outdoors and may be canceled in rainy or stormy conditions. To learn more about pediatric vaccinations (ages 5-11), we invite you to visit the [facility] webpage. https://www.[facility].org/pages/6706-Rfqgc-Uwtddzbgjlm-Qhgjbbeyfg-Qkotj-Jdu stions.htmlTo learn more about the COVID-19 vaccine, we invite you to visit the CDC website for a list of frequently asked questions.https://www.cdc.gov/coronavirus/2019-ncov/vaccines/faq.html [facility] [employer] Patient Portal Access Instructions: Stay connected with your healthcare team and access your personal medical information anytime with the [email or web address] Patient Portal. Please follow the directions below to create your [email or web address] account: 1.Access the email account you provided upon registration to the hospital/physician office.2.Look for an invitation email from [facility].3.Open the email and access the invitation link: AcceptInvitation to [facility].4.Fill in the required chase to create your account. To access your account, visit [email or web address]. Click the blue button labeled "Access Patient Portal" and then log in with the username and password that you created in the steps above. You will be able to view your test results, lab results, a summary of your visits, upcoming appointments and more. There is also a convenient messaging option where you can send secure messages to your p rovider. In addition, you will have the ability to download any documents or summaries to your computer and/or send the information securely to a physician. Remember that your healthcare information is confidential, so carefully consider who you will allowto register on the [facility] Patient Portal for access to your information. You can also access the [facility] Patient Portal on the [facility] dina. Simply click on "Patient Portal" and then log into your account. If you would like to receive a full copy of your medical records, please contact the [facility] Medical Records Department by calling [phone], Saturday through Saturday between 8 a.m. and 4:30 p.m. HOW TO SAFELY DISPOSE OF PRESCRIPTION MEDICATIONS Please use one of the following methods to safely dispose of your unused medications. 1.Use a drug disposal kit: the drug disposal pouch allows you to safely discard your old and unuseddrugs. Ask your nurse to give you one when you are discharged.2.Visit a local take-back location: Many local pharmacies and police departments have programs that collect old and unwanted prescriptiondrugs. Call your local pharmacy or go to http://TournEase.Habbo/2P5Mq7n to find one close to you.3.Make use of household items: Use cat litter or old coffee grounds to dispose medications if other options arenot available. Mix your drugs with these household products, seal them in an airtight container andthrow it into the garbage. Call [facility]: [phone] to be sure your drugs can be disposed of in this way. Some medicines may require a different approach.4.Never flush your medications down the toilet. IF YOU HAVE BEEN PRESCRIBED AN OPIOID FOR PAIN If you have been prescribed an opioid (such as hydrocodone, oxycodone or morphine), it is critical to understand the possible side effects and risks of opioid pain medications. Even when taken as directed, opioids can have several side effects including: Tolerance, meaning you might need to take more of a medication for the same pain relief. Nausea, vomiting and/or constipation. Sleepiness, dizziness, dry mouth, confusion, depression or itching. Physical dependence, meaning you have withdrawal symptoms when a medication is stopped, can develop within a few days. KNOW YOUR RESPONSIBILITIES It is important to know exactly how much and how often to take the opioid pain medications you are prescribed. Never take opioids in higher amounts or more often than prescribed. Do not combine opioids with alcohol or other drugs that cause drowsiness, such as benzodiazepines, also known as benzos, including diazepam and alprazolam, muscle relaxants or sleep aids. Never sell or share prescription opioids. This is illegal. Store opioids in a secure place and out of reach of others (including children, family, friends and visitors). The last page of this document has been signed and retained as a CHART COPY. Signatures Patient Education Materials Hyperkalemia, Cffg-pc-Tozg Medication Leaflets My discharge plan and instructions have been reviewed and explained to me and I,AGUSTO MONSALVE understand my current condition and have read and understand these discharge instructions. I have received a written copy of the plan/instructions. If I have questions, I am aware that I should contact my d julioor. Patient/Coin Box Inspector Signature: Date/Time: Relationship to Patient: Witness Name/Signature: Date/Time: [id number] Note Discharge Instructions Thank you for allowing [facility] to assist you with your healthcare needs. The following is importantdischarge information regarding your hospital visit. Your Care Team DANTE VANG APRN-MICHAEL What to do next Follow Up Appointments [facility] Please call report to [phone] When:Within 1-2 days Follow Up with KEKE Pennington When:Within 1-2 days Follow Up with DANTE VANG When:Within 1-2 days Where:[address] [place] [address] [phone] Business (1) The Following Activity and Diet Have Been Ordered for You Transfer of Care Activity - Ordered -- Activity As Tolerated, 07/23/24 16:16:00 EST Transfer of Care Diet - Ordered -- Type of Diet: Regular Diet, 07/23/24 16:16:00 EST The Following Equipment Has Been Ordered for You No qualifying data available. The Following Treatments Have Been Ordered for You Discharge Labs No qualifying data available. Discharge Radiology No qualifying data available. Other Therapies No qualifying data available. Post Acute Orders Transfer of Care Code Status - Ordered -- Full Code, Constant Order Transfer of Care Orders Electronically Signed By - Ordered -- 07/23/24 16:16:00 RENITA SERNA CHRISTINA E MD Transfer of Care Prognosis - Ordered -- Good, Patient Aware: Yes Transfer of Care Rehab Potential - Ordered -- Rehab potential good, 07/23/24 16:16:53 EST Someone Will Contact You Regarding These Home Health Referrals No home referrals have been ordered for you. No one will call you. Allergies NKA Medications Please ask your primary doctor or pharmacist before taking any other medication not listed, including over the counter drugs, herbal medications, vitamins and or supplements as they may interact withyour home medications. What How Much When Instructions Last Dose New predniSONE (predniSONE 20 mg oral tablet) 2 tab(s) by mouth Once a day with a meal Duration: 5 Days Last day Unchanged atorvastatin (atorvastatin 40 mg oral tablet) 1 tab(s) by mouth Every day Unchanged cyclobenzaprine (cyclobenzaprine 10 mg oral tablet) 1 tab(s) by mouth Daily at bedtime Unchanged diphenhydrAMINE (diphenhydrAMINE 25 mg oral tablet) 1 tab(s) by mouth Daily at bedtime as needed for as needed for itching For itching not insomnia Unchanged famotidine (famotidine 40 mg oral tablet) 1 tab(s) by mouth Daily at bedtime Unchanged fluticasone nasal (fluticasone proprionate NASAL 50 mcg/ spray) 1 spray(s) each nostril Once a day (in the morning) Unchanged fluticasone nasal (fluticasone proprionate NASAL 50 mcg/ spray) 1 spray(s) each nostril Two (2) times a day Unchanged fluticasone-salmeterol (Advair Diskus 250 mcg-50 mcg inhalation powder) 1 puff(s) by inhalation Two (2) times a day Unchanged gabapentin (gabapentin 300 mg oral capsule) 1 cap Once a day Unchanged insulin lispro (HumaLOG) (HumaLOG KwikPen 100 units/ mL injectable PEN) Unchanged lidocaine topical (lidocaine 4% patch) 1 patch(es) Topical Once a day as needed for Pain lower back Unchanged loperamide (loperamide 2 mg oral capsule) 1 cap by mouth Every 4 hours as needed for Diarrhea Unchanged magnesium oxide (magnesium oxide 400 mg oral tablet) 1 tab(s) by mouth Three (3) times a day Unchanged melatonin (Melatonin 5 mg oral tablet) 1 tab(s) by mouth Daily at bedtime as needed for as needed for insomnia Unchanged midodrine (midodrine 5 mg oral tablet) 1 tab(s) Three (3) times a day Unchanged nystatin topical (Mycostatin 100,000 units/ g topical ointment) 1 application Topical Four (4) times a day Unchanged ondansetron (ondansetron 4 mg oral tablet) 2 tab(s) by mouth Saturday / Saturday / Saturday Before dialysis Unchanged pantoprazole (pantoprazole 40 mg oral enteric coated tablet) 1 tab(s) by mouth Two (2) times a day Unchanged polyethylene glycol 3350 (polyethylene glycol 3350 oral powder for reconstitution) 17 gram(s) by mouth Every day as needed for Constipation Unchanged sodium chloride nasal (sodium chloride nasal spray) 1 spray(s) each nostril As Directed as needed for dry nasal passage Unchanged tamsulosin (tamsulosin 0.4 mg oral capsule) 1 cap by mouth Once a day Please take this list to your next doctor s visit. Bring all medications you take, including over the counter medications, herbals and other supplements with you to your doctor s visit. Patients and families are reminded to discard old lists and to update any records with all medication providers or retail pharmacies. Additional Information VACCINATE! IT SAVES LIVES! Members of the community who have not yet received the COVID-19 vaccine and would like to receive it can visit one of [facility] vaccine clinics. There are many vaccine clinic locations within the [facility]. For locations and available times, please visit [email or web address].[place].gov/. It is important to note that some COVID mobile vaccine clinics are held outdoors and may be canceled in rainy or stormy conditions. To learn more about pediatric vaccinations (ages 5-11), we invite you to visit the [facility] webpage. https://www.[facility].org/pages/1166-Jhbzg-Xouhassxqmg-Ezzevmwaps-Trzfm-Hjc stions.htmlTo learn more about the COVID-19 vaccine, we invite you to visit the CDC website for a list of frequently asked questions.https://www.cdc.gov/coronavirus/2019-ncov/vaccines/faq.html [email or web address] Patient Portal Access Instructions: Stay connected with your healthcare team and access your personal medical information anytime with the [email or web address] Patient Portal. Please follow the directions below to create your [employer] account: 1.Access the email account you provided upon registration to the hospital/physician office.2.Look for an invitation email from [facility].3.Open the email and access the invitation link: AcceptInvitation to [employer].4.Fill in the required chase to create your account. To access your account, visit [email or web address]. Click the blue button labeled "Access Patient Portal" and then log in with the username and password that you created in the steps above. You will be able to view your test results, lab results, a summary of your visits, upcoming appointments and more. There is also a convenient messaging option where you can send secure messages to your p rovider. In addition, you will have the ability to download any documents or summaries to your computer and/or send the information securely to a physician. Remember that your healthcare information is confidential, so carefully consider who you will allowto register on the [employer] Patient Portal for access to your information. You can also access the [facility] [employer] [facility] Patient Portal on the [facility] [employer] dina. Simply click on "Patient Portal" and then log into your account. If you would like to receive a full copy of your medical records, please contact the [facility] Medical Records Department by calling [phone], Saturday through Saturday between 8 a.m. and 4:30 p.m. HOW TO SAFELY DISPOSE OF PRESCRIPTION MEDICATIONS Please use one of the following methods to safely dispose of your unused medications. 1.Use a drug disposal kit: the drug disposal pouch allows you to safely discard your old and unuseddrugs. Ask your nurse to give you one when you are discharged.2.Visit a local take-back location: Many local pharmacies and police departments have programs that collect old and unwanted prescriptiondrugs. Call your local pharmacy or go to http://bit.Habbo/0Q5We9n to find one close to you.3.Make use of household items: Use cat litter or old coffee grounds to dispose medications if other options arenot available. Mix your drugs with these household products, seal them in an airtight container andthrow it into the garbage. Call [facility]: [phone] to be sure your drugs can be disposed of in this way. Some medicines may require a different approach.4.Never flush your medications down the toilet. IF YOU HAVE BEEN PRESCRIBED AN OPIOID FOR PAIN If you have been prescribed an opioid (such as hydrocodone, oxycodone or morphine), it is critical to understand the possible side effects and risks of opioid pain medications. Even when taken as directed, opioids can have several side effects including: Tolerance, meaning you might need to take more of a medication for the same pain relief. Nausea, vomiting and/or constipation. Sleepiness, dizziness, dry mouth, confusion, depression or itching. Physical dependence, meaning you have withdrawal symptoms when a medication is stopped, can develop within a few days. KNOW YOUR RESPONSIBILITIES It is important to know exactly how much and how often to take the opioid pain medications you are prescribed. Never take opioids in higher amounts or more often than prescribed. Do not combine opioids with alcohol or other drugs that cause drowsiness, such as benzodiazepines, also known as benzos, including diazepam and alprazolam, muscle relaxants or sleep aids. Never sell or share prescription opioids. This is illegal. Store opioids in a secure place and out of reach of others (including children, family, friends and visitors). The last page of this document has been signed and retained as a CHART COPY. Signatures Patient Education Materials Medication Leaflets My discharge plan and instructions have been reviewed and explained to me and I,AGUSTO MONSALVE understand my current condition and have read and understand these discharge instructions. I have received a written copy of the plan/instructions. If I have questions, I am aware that I should contact my d octor. Patient/Coin Box Inspector Signature: Date/Time: Relationship to Patient: Witness Name/Signature: Date/Time: [id number] Note Patient out of room for dialysis. Will reattempt assessment at a later time. Digitally Signed by MIRIAM Carey on 07/23/2024 03:34 PM [id number] Respiratory therapy Hospital Progress note Respiratory Therapy Evaluation Entered On: 07/23/2024 10:56 EST Performed On: 07/23/2024 10:56 EST by Lubna Billy RT Respiratory Therapy Evaluation Surgical Status : No surgery Chest X-Ray : Infiltrates or atelectasis in one lobe Respiratory Pattern (RT) : RR 10-20 BPM, Regular pattern Breath Sounds (RT) : Diminished due to poor inspiratory effort Cough (RT) : Strong, non-productive Level of Activity : Ambulatory with assistance Mental Status : Alert, oriented and cooperative Respiratory Therapy Evaluation Score : 6 RT Evaluation Steps : Chart review completed, Assessment completed: RR, HR, Auscultation, Cough, Patient Interview completed Respiratory Evaluation Triage Score : (6-10) Freq: TIDRT & Albuterol Q2hRT prn RT Assessment [Frequency/Schedule] : No changes required Pulmonary Status : Current smoker Lubna Billy RT - 07/23/2024 11:00 EST Digitally Signed by Lubna Billy RT on 07/23/2024 11:00 AM [id number] Nephrology Progress note Objective Vitals and Measurements T: 36.6 C (Axillary) TMIN: 36.5 C (Oral) TMAX: 36.6 C (Skin) HR: 96 RR: 18 BP: 152/83 SpO2: 96% WT:109.5 kg Intake and Output 7AM Yesterday to 7AM Today Intake and Output (Last 24 hours) Intake Oral Intake 620.00 Output Urine Voided 0.00 Hemodialysis 3000.00 Stool Count 1.00 Urine Count 0.00 Total Summary Total Intake 620.00 Total Output 3000.00 Fluid Balance -2380.00 Physical Exam General: resting on dialysis. HEENT: Icterus-; Pallor + Neck: No swelling. JVD normal. Chest: Chest equal in expansion, and clear to auscultation bilaterally. Heart: s1s2 heard. regular. No murmur/rub appreciated. Abdomen: Soft. Nondistended. Nontender. Bowel sounds heard. Neuro: asterexis-; sensation b/l intact. Skin: rash-; ecchymosis - Musculoskeletal: joint effusion -; cyanosis-; lower extremitity edema: + Genitourinary/rectal: FMS: - harrison:- Breast: deferred Access: avf lfet arm. Weight Current Weight Dosing Weight: 108.8 kg (07/22/24) Current Weight: 109.5 kg (07/23/24) Dosing Weight: 112.2 kg (07/22/24) Medications Medications (27) Active Scheduled: (15) albuterol - ipratropium 2.5 mg-0.5 mg/3 mL Inhal Elva UD 3 mL, Inhalation, TIDRT albuterol 0.083% Soln UD (2.5mg/3 mL) 2.5 mg 3 mL, Inhalation, QIDRT atorvastatin 40 mg tablet 40 mg 1 tab(s), Oral, Daily budesonide 0.5 mg/2 mL Susp UD 0.5 mg 2 mL, Inhalation, BIDRT cyclobenzaprine 10 mg Tablet 10 mg 1 tab(s), Oral, qHS famotidine 20 mg tablet 20 mg 1 tab(s), Oral, Every other day fluticasone nasal 0.05 mg/inh Vestal 50 mcg 1 spray(s), Nostril, each, BID gabapentin 300 mg Capsule 300 mg 1 cap(s), Oral, qDay heparin 5,000 units/mL (1 mL) vial 5,000 unit(s) 1 mL, Subcutaneous, q8h insulin lispro 100 units/mL Soln (3 mL) Give 0-10 units/dose, Subcutaneous, TIDAC magnesium oxide 400 mg Tablet 400 mg 1 tab(s), Oral, TID methylPREDNISolone succ 40mg (40 mg/1mL) after dilution 40 mg 1 mL, IV Push, q8h ondansetron 8 mg tablet 8 mg 1 tab(s), Oral, Mon/Wed/Fri pantoprazole 40 mg EC tablet 40 mg 1 tab(s), Oral, BID tamsulosin 0.4 mg Capsule 0.4 mg 1 cap(s), Oral, qDay Continuous: (0) PRN: (12) acetaminophen 325 mg Tablet 650 mg 2 tab(s), Oral, q4h acetaminophen 325 mg Tablet 650 mg 2 tab(s), Oral, q4h albuterol - ipratropium 2.5 mg-0.5 mg/3 mL Inhal Elva UD 3 mL, Inhalation, q4hRT dextrose 50% Solution Disp syringe 50 mL 12.5 gram(s) 25 mL, IV Push, AsDirected diphenhydramine 25 mg tablet 25 mg 1 tab(s), Oral, qHS guaifenesin 100 mg/5 mL 120 mL liquid 200 mg 10 mL, Oral, q4h loperamide 2 mg capsule 2 mg 1 cap(s), Oral, q4h melatonin 3 mg tablet 3 mg 1 tab(s), Oral, qHS melatonin 5 mg tablet 5 mg 1 tab(s), Oral, qHS ondansetron 2 mg/ 1 mL 2 mL INJ 4 mg 2 mL, IV Push, q4h polyethylene glycol 3350 - UD packet 17 gram(s) 15 mL, Oral, qDay polyethylene glycol 3350 - UD packet 17 gram(s) 15 mL, Oral, Daily Lab Results 07/23 03:54 WBC: 8.9 Hgb: 11.1 L Hct: 33.7 L Platelet: 198 Neutrophil %: 95.3 H Glucose Level: 161 H Sodium Level: 139 Potassium Level: 4.5 BUN: 43.0 H Creatinine Lvl (s): 4.28 H 07/22 17:26 Glucose Level: 167 H Sodium Level: 137 Potassium Level: 4.7 BUN: 33.0 H Creatinine Lvl (s): 3.51 H 07/22 07:20 WBC: 12.4 H Hgb: 11.2 L Hct: 33.6 L Platelet: 232 Neutrophil %: 96.7 H Glucose Level: 164 H Sodium Level: 133 L Potassium Level: 7.1 C BUN: 85.0 H Creatinine Lvl (s): 7.17 H EKG No qualifying data available. Time Spent esrd on hd. mwf hyperkalemia anemia sob plan Patient's potassium levels are better metabolic status is also improved. But he missed his last session of dialysis. Will plan for dialysis again today. [1] Consult Note; TON VASQUEZ MD 07/22/2024 09:11 EST Digitally Signed by TON VASQUEZ MD on 07/23/2024 10:25 AM [id number] Note Date of Service 07/22/2024 Hospitalist brief same-day admission note Patient is a 49-year-old man admitted for acute hypoxic respiratory failure and hyperkalemia secondary to COPD exacerbation and missed dialysis. Patient seen today following dialysis States that he is feeling much better than admission. Breathing much more comfortable. No chest pain or cough. Vital stable BP 141/78, HR 92, afebrile. Stable on 4 L nasal cannula Sitting up in bed, talkative, no distress Lungs with diffuse wheeze and some diminished air movement Abdomen soft Extremities, s/p bilateral BKA, no edema Will recheck BMP this afternoon but do expect improvement following dialysis today. Continue nebs and steroids Have requested med rec to be done and reorder home meds. Digitally Signed by KRYSTAL MARAVILLA MD on 07/22/2024 04:26 PM [id number] Evaluation + Plan noteExtracted from: Title:Clinical Document Author:ZAIN FERRO MD Date:07/22/24 [facility] Hospitalist History and Physical Date of Admission: patient is being admitted on July 22, 2024 Chief complaint: shortness of breath History of present illness: History is taken from talking with emergency room physician at [facility] Dr. julito ibarra as well as talking with the patient. Patient has a past medical history of tobacco abuse, COPD, end-stage renal disease on dialysis Saturday/Saturday/Saturday, peripheral vascular disease status post bilateral below the knee amputation, diabetes mellitus type II, coronary artery disease status post CABG. The patient was sent to the emergency room from a nursing facility due to having severe shortness of breath. The patient at baseline does not wear supplemental oxygen. He denies chest pain. Denies cough. Denies fevers, chills or night sweats. The patient of note did not go for dialysis on Saturday due to bad weather. Since presenting to the emergency room the patient has been afebrile, hemodynamically stable, 87% room air. The following labs and imaging were personally reviewed WBC 11.6 hemoglobin 10.4 and we do not have a prior to compare sodium 132 potassium 7.2 creatinine 7.5 however he is a dialysis patient magnesium 3.2 Pro BNP greater than 35,000 high-sensitivity troponin 27 negative for COVID-19/flu/RSV chest x-ray showed small left pleural effusion and mild congestive heart failure EKG personally reviewed and interpreted showed bradycardia with a heart rate of 48 Prior to transfer the patient was given three breathing treatments, 2 g calcium gluconate, 40 mg IV Lasix, 25 g dextrose, five units regular insulin, 125 mg IV methylprednisolone, 50 mEq of sodium bicarb, 30 g kayexalate, 10 g lokelma. They did discuss the case with nephrology clinician oncology. Past medical history: tobacco abuse, COPD, end-stage renal disease on dialysis Saturday/Saturday/Saturday, peripheral vascular disease status post below the knee amputation, coronary disease status post CABG, diabetes mellitus type II. Family history: hypertension Social history: Denies smoking cigarettes or alcohol consumption Medications: medications were not verified by pharmacy at the time of this dictation Allergies: NKA Review of systems: See HPI for pertinent positives and negatives. All other review of systems have been reviewed and they are negative. Vitals Signs(Last 24 hrs)__Last Charted Minimum Maximum Temp37.2(JUL 22 02:09)37.2(JUL 22:09)37.2(JUL 22:) Heart RateL 49(JUL 22:)L 49(JUL 22:)L 49(JUL 22:) SBPH 164(JUL 22 05:06)139(JUL 22:09)H 164(JUL 22:) DBP86(JUL 22:)86(JUL 22:06)H 91(JUL 22:) Physical examination: HEENT: No Pallor, No Icterus Cardiac: RRR, No murmur Lungs: CTA, good air entry Abdomen: Soft Non tender Musculoskeletal: bilateral below the knee amputation Extremities: No edema, good pulses Neurological: Alert, no deficits Skin: No rash, no nodules Labs: WBC: 11.6 10^3/mcL High (07/22/24 02:36:00) RBC: 3.45 10^6/mcL Low (07/22/24 02:36:00) Hgb: 10.4 G/dL Low (07/22/24 02:36:00) Hct: 31.1 % Low (07/22/24 02:36:00) MCV: 90.1 fL (07/22/24 02:36:00) MCH: 30.3 pg (07/22/24 02:36:00) MCHC: 33.6 G/dL (07/22/24 02:36:00) RDW: 16.5 % High (07/22/24 02:36:00) Platelet: 223 10^3/mcL (07/22/24 02:36:00) MPV: 6.6 fL (07/22/24 02:36:00) Monocyte Distribution Width: Not tested (07/22/24 02:36:00) Neutrophil %: 83.2 % High (07/22/24 02:36:00) Lymphocyte %: 8.1 % Low (07/22/24 02:36:00) Monocyte %: 5.9 % (07/22/24 02:36:00) Eosinophil %: 2.4 % (07/22/24 02:36:00) Basophil %: 0.1 % (07/22/24 02:36:00) Neutrophil, Absolute: 9.6 10^3/mcL High (07/22/24 02:36:00) Lymphocyte, Absolute: 0.9 10^3/mcL (07/22/24 02:36:00) Monocyte, Absolute: 0.6 10^3/mcL (07/22/24 02:36:00) Eosinophil, Absolute: 0.2 10^3/mcL (07/22/24 02:36:00) Basophil, Absolute: 0 10^3/mcL (07/22/24 02:36:00) Glucose Level: 117 mg/dL High (07/22/24 02:36:00) Sodium Level: 132 mmol/L Low (07/22/24 02:36:00) Potassium Level: 7.2 mmol/L Critical (07/22/24 02:36:00) Chloride: 94 mmol/L Low (07/22/24 02:36:00) CO2: 27 mmol/L (07/22/24 02:36:00) Electrolyte Balance: 11 mEq/L (07/22/24 02:36:00) BUN: 88 mg/dL High (07/22/24 02:36:00) Creatinine Lvl (s): 7.55 mg/dL High (07/22/24 02:36:00) BUN/Creatinine Ratio: 12 ratio (07/22/24 02:36:00) Calcium Lvl: 9 mg/dL (07/22/24 02:36:00) Magnesium Lvl: 3.2 mg/dL High (07/22/24 02:36:00) GFR Non-: 8 ml/min/1.73sqm (07/22/24 02:36:00) GFR : 9 ml/min/1.73sqm (07/22/24 02:36:00) N-Terminal proBNP: >49675 High (07/22/24 03:09:00) High Sensitivity Troponin I: 27 ng/L (07/22/24 02:36:00) SARS-CoV-2 PCR: Cepheid Neg (07/22/24 02:36:00) FLU A PCR: Cepheid Neg (07/22/24 02:36:00) FLU B PCR: Cepheid Neg (07/22/24 02:36:00) RSV PCR: Cepheid Neg (07/22/24 02:36:00) Blood Glucose, Capillary: 117 mg/dL High (07/22/24 03:45:00) Blood Glucose Testing Reason: Routine (07/22/24 03:45:00) No qualifying data available. Assessment and plan: Patient presents from [facility] emergency room on July 22, 2024 due to having acute hypoxic respiratory failure and hyperkalemia. Acute hypoxic respiratory failure multifactorial and secondary to COPD exacerbation as well as volume overload. Patient will be on step down with monitor. Patient will require dialysis. Will treat for COPD exacerbation. Acute on chronic COPD exacerbation. Chest x-ray not concerning for pneumonia. Negative for COVID-19/flu/RSV. Scheduled and as needed breathing treatments. IV steroids. Anemia most likely chronic and secondary to chronic kidney disease. Will monitor Hyponatremia, hypervolemic. Will consult nephrology for dialysis Severe hyperkalemia. Will consult nephrology for dialysis. Patient will be on step down with monitor. Will check repeat labs. End-stage renal disease on dialysis Saturday/Saturday/Saturday. Patient did miss dialysis on Saturday. Will consult nephrology for dialysis. Peripheral vascular disease status post bilateral below the knee amputation. Continue home medications Diabetes mellitus type II. Continue home medications. Sliding scale insulin Coronary artery disease status post CABG. Continue home medications Prophylaxis subcu heparin Code status full code Medications will need reconciled once they are verified [facility] 01-08-2025 Respiratory therapy Hospital Progress note Respiratory Therapy Evaluation Entered On: 07/22/2024 10:04 EST Performed On: 07/22/2024 10:04 EST by Lubna Billy RT Respiratory Therapy Evaluation Surgical Status : No surgery Chest X-Ray : Infiltrates or atelectasis in one lobe Respiratory Pattern (RT) : RR 10-20 BPM, Regular pattern Breath Sounds (RT) : Diminished due to poor inspiratory effort Cough (RT) : Weak, non-productive Level of Activity : Ambulatory with assistance Mental Status : Alert, oriented and cooperative Respiratory Therapy Evaluation Score : 8 RT Evaluation Steps : Chart review completed, Assessment completed: RR, HR, Auscultation, Cough, Patient Interview completed Respiratory Evaluation Triage Score : (6-10) Freq: TIDRT & Albuterol Q2hRT prn RT Assessment [Frequency/Schedule] : Triage score 6-10, change frequency to TIDRT and Albuterol Q2hRT PRN per protocol Lubna Billy RT - 07/22/2024 10:05 EST Pulmonary Status : Current smoker Lubna Billy RT - 07/22/2024 10:04 EST Digitally Signed by Lubna Billy RT on 07/22/2024 10:05 AM [id number] Nephrology Consult note Date of Service 07-22 History of Present Illness Patient known to me from outpatient dialysis. Patient dialysis Saturday. Transferredhere because of worsening shortness of breath. He usually is maintaining his reasonable dry weight.But on admission he was noted to have profound hyperkalemia without profound high anemia. missed hdlast session. no recent issues with fistula. Review of Systems 10 point review of systems was done. negative other than mentioned above. Physical Exam Vitals and Measurements T: 36.7 C (Skin) TMIN: 36.7 C (Skin) TMAX: 36.8 C (Oral) HR: 51 (Monitored) RR: 20 BP: 171/73 SpO2:96% HT: 149.9 cm WT: 112.2 kg BMI: 50.07 Weight Dosing Weight: 112.2 kg (07/22/24) Dosing Weight: 112.5 kg (07/22/24) General: resting on dialysis. HEENT: Icterus-; Pallor + Neck: No swelling. JVD normal. Chest: Chest equal in expansion, and clear to auscultation bilaterally. Heart: s1s2 heard. regular. No murmur/rub appreciated. Abdomen: Soft. Nondistended. Nontender. Bowel sounds heard. Neuro: asterexis-; sensation b/l intact. Skin: rash-; ecchymosis - Musculoskeletal: joint effusion -; cyanosis-; lower extremitity edema: + Genitourinary/rectal: FMS: - harrison:- Breast: deferred Access: avf lfet arm. Lab Results 07/22 07:20 WBC: 12.4 H Hgb: 11.2 L Hct: 33.6 L Platelet: 232 Neutrophil %: 96.7 H Glucose Level: 164 H Sodium Level: 133 L Potassium Level: 7.1 C BUN: 85.0 H Creatinine Lvl (s): 7.17 H Assessment/Plan Orders: Acute Hepatitis Panel(Hepatitis Acute Panel), 07/22/24 8:40:00 EST, URGENT (collect within 2 hrs), Blood, Once, Stop date 07/22/24 8:40:00 EST Dialysis Machine Bicarb Setting, 07/22/24 8:38:00 EST, Total Bicarb Buffer 37 Dialysis Machine Sodium Setting, 07/22/24 8:38:00 EST, Sodium Machine Setting 138 Dialysis Machine Temperature Setting, 07/22/24 8:38:00 EST, Machine Temp Setting 36.5 Discontinue Order, 07/22/24 8:38:00 EST, Once, Please discontinue all active orders when current dialysis treatment is complete, 07/22/24 8:38:00 EST Standard Hemodialysis(Dialysis, Standard), 07/22/24 8:38:00 EST, Dialyzer: F 160, Dialysate 2K+, Dialysate Rate (mL/min) 500, 4 hours, 3L liters removed, No, Blood Flow Rate (mL/min) 350, Low BP Instructions Heparin 3000 esrd on hd. mwf hyperkalemia anemia sob plan For dialysis using a 2K bath today. This is to avoid significant arevalo correction that may lead to arrhythmias. May require discharge session of dialysis tomorrow along with ultrafiltration. Low potassium diet. Avoid RAAS blockade use. A.m. labs. Procedure/Surgical History No qualifying data available. Medications Inpatient Dextrose 50% IV Push, 12.5 gram(s)= 25 mL, IV Push, AsDirected, PRN DuoNeb, 3 mL, Inhalation, QIDRT DuoNeb, 3 mL, Inhalation, q4hRT, PRN guaiFENesin, 200 mg= 10 mL, Oral, q4h, PRN heparin 5000 units/mL injection, 5000 unit(s)= 1 mL, Subcutaneous, q8h HumaLOG 100 units/mL subcutaneous solution, Give 0-10 units/dose, Subcutaneous, TIDAC melatonin, 3 mg= 1 tab(s), Oral, qHS, PRN Miralax Powder Packet, 17 gram(s)= 15 mL, Oral, qDay, PRN SOLU-Medrol 40 mg pf injection, 40 mg= 1 mL, IV Push, q8h Tylenol, 650 mg= 2 tab(s), Oral, q4h, PRN Tylenol, 650 mg= 2 tab(s), Oral, q4h, PRN Zofran, 4 mg= 2 mL, IV Push, q4h, PRN Home No active home medications Allergies NKA Social History Tobacco Nicotine Use: Former smoker, quit more than 30 days ago. Smokeless Tobacco Use: Smokeless tobacco user within last 30 days., 07/22/2024 Immunizations No qualifying data available. Digitally Signed by TON VASQUEZ MD on 07/22/2024 11:25 AM [id number] History and physical note [facility] Hospitalist History and Physical Date of Admission: patient is being admitted on July 22, 2024 Chief complaint: shortness of breath History of present illness: History is taken from talking with emergency room physician at [facility] Dr. julito ibarra as well as talking with the patient. Patient has a past medical history of tobacco abuse, COPD, end-stage renal disease on dialysis Saturday/Saturday/Saturday, peripheral vascular disease status post bilateral below the knee amputation, diabetes mellitus type II, coronary artery disease status post CABG. The patient was sent to the emergency room from a nursing facility due to having severe shortness of breath. The patient at baseline does not wear supplemental oxygen. He denies chest pain. Denies cough. Denies fevers, chills or night sweats. The patient of note did not go for dialysis on Saturday due to bad weather. Since presenting to the emergency room the patient has been afebrile, hemodynamically stable, 87% room air. The following labs and imaging were personally reviewed WBC 11.6 hemoglobin 10.4 and we do not have a prior to compare sodium 132 potassium 7.2 creatinine 7.5 however he is a dialysis patient magnesium 3.2 Pro BNP greater than 35,000 high-sensitivity troponin 27 negative for COVID-19/flu/RSV chest x-ray showed small left pleural effusion and mild congestive heart failure EKG personally reviewed and interpreted showed bradycardia with a heart rate of 48 Prior to transfer the patient was given three breathing treatments, 2 g calcium gluconate, 40 mg IVLasix, 25 g dextrose, five units regular insulin, 125 mg IV methylprednisolone, 50 mEq of sodium bicarb, 30 g kayexalate, 10 g lokelma. They did discuss the case with nephrology clinician oncology. Past medical history: tobacco abuse, COPD, end-stage renal disease on dialysis Saturday/Saturday/Saturday, peripheral vascular disease status post below the knee amputation, coronary disease status post CABG, diabetes mellitus type II. Family history: hypertension Social history: Denies smoking cigarettes or alcohol consumption Medications: medications were not verified by pharmacy at the time of this dictation Allergies: NKA Review of systems: See HPI for pertinent positives and negatives. All other review of systems have been reviewed and they are negative. Vitals Signs(Last 24 hrs)__Last Charted Minimum Maximum Temp37.2(JUL 22:)37.2(JUL 22:)37.2(JUL 22:) Heart RateL 49(JUL 22:)L 49(JUL 22:)L 49(JUL 22:) SBPH 164(JUL 22:)139(JUL 22:)H 164(JUL 22:) DBP86(JUL 22:)86(JUL 22:)H 91(JUL 22:) Physical examination: HEENT: No Pallor, No Icterus Cardiac: RRR, No murmur Lungs: CTA, good air entry Abdomen: Soft Non tender Musculoskeletal: bilateral below the knee amputation Extremities: No edema, good pulses Neurological: Alert, no deficits Skin: No rash, no nodules Labs: WBC: 11.6 10^3/mcL High (07/22/24 02:36:00) RBC: 3.45 10^6/mcL Low (07/22/24 02:36:00) Hgb: 10.4 G/dL Low (07/22/24 02:36:00) Hct: 31.1 % Low (07/22/24 02:36:00) MCV: 90.1 fL (07/22/24 02:36:00) MCH: 30.3 pg (07/22/24 02:36:00) MCHC: 33.6 G/dL (07/22/24 02:36:00) RDW: 16.5 % High (07/22/24:36:00) Platelet: 223 10^3/mcL (07/22/24 02:36:00) MPV: 6.6 fL (07/22/24 02:36:00) Monocyte Distribution Width: Not tested (07/22/24:36:00) Neutrophil %: 83.2 % High (07/22/24 02:36:00) Lymphocyte %: 8.1 % Low (07/22/24 02:36:00) Monocyte %: 5.9 % (07/22/24 02:36:00) Eosinophil %: 2.4 % (07/22/24 02:36:00) Basophil %: 0.1 % (07/22/24 02:36:00) Neutrophil, Absolute: 9.6 10^3/mcL High (07/22/24 02:36:00) Lymphocyte, Absolute: 0.9 10^3/mcL (07/22/24 02:36:00) Monocyte, Absolute: 0.6 10^3/mcL (07/22/24 02:36:00) Eosinophil, Absolute: 0.2 10^3/mcL (07/22/24 02:36:00) Basophil, Absolute: 0 10^3/mcL (07/22/24 02:36:00) Glucose Level: 117 mg/dL High (07/22/24 02:36:00) Sodium Level: 132 mmol/L Low (07/22/24 02:36:00) Potassium Level: 7.2 mmol/L Critical (07/22/24 02:36:00) Chloride: 94 mmol/L Low (07/22/24 02:36:00) CO2: 27 mmol/L (07/22/24 02:36:00) Electrolyte Balance: 11 mEq/L (07/22/24 02:36:00) BUN: 88 mg/dL High (07/22/24 02:36:00) Creatinine Lvl (s): 7.55 mg/dL High (07/22/24 02:36:00) BUN/Creatinine Ratio: 12 ratio (07/22/24 02:36:00) Calcium Lvl: 9 mg/dL (07/22/24 02:36:00) Magnesium Lvl: 3.2 mg/dL High (07/22/24 02:36:00) GFR Non-: 8 ml/min/1.73sqm (07/22/24 02:36:00) GFR : 9 ml/min/1.73sqm (07/22/24 02:36:00) N-Terminal proBNP: >64274 High (07/22/24 03:09:00) High Sensitivity Troponin I: 27 ng/L (07/22/24 02:36:00) SARS-CoV-2 PCR: Cepheid Neg (07/22/24 02:36:00) FLU A PCR: Cepheid Neg (07/22/24 02:36:00) FLU B PCR: Cepheid Neg (07/22/24 02:36:00) RSV PCR: Cepheid Neg (07/22/24 02:36:00) Blood Glucose, Capillary: 117 mg/dL High (07/22/24 03:45:00) Blood Glucose Testing Reason: Routine (07/22/24 03:45:00) No qualifying data available. Assessment and plan: Patient presents from [facility] emergency room on July 22, 2024 due to having acute hypoxic respiratory failure and hyperkalemia. Acute hypoxic respiratory failure multifactorial and secondary to COPD exacerbation as well as volume overload. Patient will be on step down with monitor. Patient will require dialysis. Will treat for COPD exacerbation. Acute on chronic COPD exacerbation. Chest x-ray not concerning for pneumonia. Negative for COVID-19/flu/RSV. Scheduled and as needed breathing treatments. IV steroids. Anemia most likely chronic and secondary to chronic kidney disease. Will monitor Hyponatremia, hypervolemic. Will consult nephrology for dialysis Severe hyperkalemia. Will consult nephrology for dialysis. Patient will be on step down with monitor. Will check repeat labs. End-stage renal disease on dialysis Saturday/Saturday/Saturday. Patient did miss dialysis on Saturday. Will consult nephrology for dialysis. Peripheral vascular disease status post bilateral below the knee amputation. Continue home medications Diabetes mellitus type II. Continue home medications. Sliding scale insulin Coronary artery disease status post CABG. Continue home medications Prophylaxis subcu heparin Code status full code Medications will need reconciled once they are verified Digitally Signed by ZAIN FERRO MD on 07/22/2024 06:48 AM [facility]01-08-2025 Nurse Progress note Hailey cerna, phone number , can be told medical info. [phone] Digitally Signed by William Hayward RN on 07/22/2024 03:53 AM [facility]01-08-2025 Note* Exam Date Time Procedure Performing Provider Status 07/22/24 2:50 AM XR Chest 1 View LEO CRUZ MD; A [facility] (Verified) [id number] ORIGINAL EXAMINATION: ONE XRAY VIEW OF THE CHEST 07/22/2024 2:50 am COMPARISON: None. HISTORY: ORDERING SYSTEM PROVIDED HISTORY: Reason for Exam: dyspnea FINDINGS: Sternal wire sutures are intact. There is mild cardiomegaly. Mild pulmonary edema is present. Small left pleural effusion is evident. There is no visible pneumothorax. No acute skeletal abnormality is detected. IMPRESSION: Mild congestive heart failure with small left pleural effusion. Interpreted by: Leo Cruz MD Preliminary Report By: Leo Cruz MD Electronically signed By Leo Cruz MD Dictated Date: 07/22/2024 2:58:52 AM Prelim Date: 07/22/2024 3:00:32 AM Sign Date: 07/22/2024 3:00:32 AM Ordering Provider: KIZZY MEDEROS [facility]01-08-2025 Note* Exam Date Time Procedure Performing Provider Status 07/22/24 2:44 AM EKG [ED AOH] - CV KIZZY MEDEROS DO; Auth (Verified) ECG Final Report BRADYCARDIA Right bundle branch block ABNORMAL ECG Electronic Signature: KIZZY MEDEROS DO 07/22/2024 02:53:05 [place] [id number] Evaluation note* Encounter Date Diagnosis Assessment Notes Treatment Notes Treatment Clinical Notes Jan, Cellulitis of lower leg (ICD-10 - L03.119) Jul, Chronic kidney disease, stage 5 (ICD-10 - N18.5) Jul, Type 2 diabetes mellitus with hyperglycemia (ICD-10 - E11.65) [facility] Other 04-07-2022 Evaluation note* Encounter Date Diagnosis Assessment Notes Treatment Notes Treatment Clinical Notes Oct, Physical debility (ICD-10 - R53.81) Oct, Other Advised for sco tt to go home and compare his medications to the list he was given at discharge as he cannot recall any of his medications. We have contacted Janie again to get this information. Once received we can address any medication concerns or questions Agusto may have. Continue with specialists and stress importance of Endo visit. Sep, Type 2 diabetes mellitus with foot ulcer (ICD-10 - E11.621) Sep, Muscle weakness (generalized) (ICD-10 - M62.81) Jul, Type 2 diabetes mellitus with hyperglycemia (ICD-10 - E11.65) Advised to schedule with Endo as soon as possible. Overdue for visit. Medications are unknown as he did not bring his list and we do not have the discharge summary. [facility] Other 02-24-2022 Evaluation note* Encounter Date Diagnosis Assessment Notes Treatment Notes Treatment Clinical Notes Aug, Urinary tract infection, acute (ICD-10 - N39.0) Bactrim sent in error. Pharmacy contacted to cancel RX. Start Doxycyline. Culture ordered Aug, Dysuria (ICD-10 - R30.0) Aug, Other AMA form signed. Refused labs - states he will get today at his appointment from [facility]. Refused to go to ER for abnormal examination (foot wound, HTN). Discussed likely sepsis from UTI and foot wound. He agrees. States he will go after my 3PM appointment with [facility]." States he will already be in town and "go over." We discuss that his health requires in-depth care and monitoring to have any QoL. He needs SNF placement. He states he understands. No follow up scheduled at this time. Advised to follow up after hospitalization. Sep, Type 2 diabetes mellitus with foot ulcer (ICD-10 - E11.621) Jul, Chronic kidney disease, stage 5 (ICD-10 - N18.5) Jun, End stage renal disease (ICD-10 - N18.6) Sep, Essential (primary) hypertension (ICD-10 - I10) [facility] Other 12-29-2021 Evaluation note* Encounter Date Diagnosis Assessment Notes Treatment Notes Treatment Clinical Notes Jun, Intractable hiccups (ICD-10 - R06.6) Discussed regimen. 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 Medical History Type 2 diabetes mellitus with fo ot ulcer Medical History Type 2 diabetes mellitus with hy perglycemia Medical History Hyperlipidemia, unspecified Medical History Hypomagnesemia Medical History Essential (primary) hypertension Medical History Heart failure, unspecified Medical History Allergic rhinitis, unspecified Medical History Chronic obstructive pulmonary disease, unspecified Medical History Mild intermittent asthma, uncomp licated Medical History Gastro-esophageal re flux disease without esophagitis Medical History Chronic kidney disease, stage 5 Medical History End stage renal disease Medical History Elevation of levels of liver tra nsaminase levels Medical History Other specified diabetes mellitu s with foot ulcer Medical History Non-pressure chronic ulcer of other part of unspecified foot with unspecified severity Surgical History ankle surgery - righ t insertion nail intramedullary tibia 03/13/2020 Surgical History AV fistula placement Surgical History coronary artery x 3 bypass 05/15 Surgical History inguinal hernia repair Surgical History benign tumor removal from neck Surgical History multiple tooth extractions Surgical History peritoneal catheter insertion Surgical History tunneled venous catheter replac ement 03/18/2020 Surgical History bilateral foot ulcer debridemen t 02/01/21 Hospitalization History osteomyelitis, bilateral foot ulcers 6/10 Hospitalization History hypotension, sep sis, debridement foot ulcer bilaterally 01/30 - 02/03 [facility] Other Hisamxc general Narrative - Reported* Type Description Date Medical History 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 Medical History 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 Medical History Type 2 diabetes mellitus with fo ot ulcer Medical History Type 2 diabetes mellitus with hy perglycemia Medical History Hyperlipidemia, unspecified Medical History Hypomagnesemia Medical History Essential (primary) hypertension Medical History Heart failure, unspecified Medical History Allergic rhinitis, unspecified Medical History Chronic obstructive pulmonary disease, unspecified Medical History Mild intermittent asthma, uncomp licated Medical History Gastro-esophageal re flux disease without esophagitis Medical History Chronic kidney disease, stage 5 Medical History End stage renal disease Medical History Elevation of levels of liver tra nsaminase levels Medical History Other specified diabetes mellitu s with foot ulcer Medical History Non-pressure chronic ulcer of other part of unspecified foot with unspecified severity Surgical History ankle surgery - righ t insertion nail intramedullary tibia 03/13/2020 Surgical History AV fistula placement Surgical History coronary artery x 3 bypass 05/15 Surgical History inguinal hernia repair Surgical History benign tumor removal from neck Surgical History multiple tooth extractions Surgical History peritoneal catheter insertion Surgical History tunneled venous catheter replac [facility] 03/18/2020 Surgical History bilateral foot ulcer debridemen t 02/01/21 Hospitalization History osteomyelitis, bilateral foot ulcers 6/10 Hospitalization History hypotension, sep sis, debridement foot ulcer bilaterally 01/30 - 02/03 Hospitalization History COVID 08/05 [facility] Other Hisccxb general Narrative - Reported* Type Description Date Medical History 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 Medical History 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 Medical History Type 2 diabetes karlos itus with foot ulcer Medical History Type 2 diabetes karlos itus with hyperglycemia Medical History Hyperlipidemia, unspecified Medical History Hypomagnesemia Medical History Essential (primary) hypertension Medical History Heart failure, unspecified Medical History Allergic rhinitis, unspecified Medical History Chronic obstructive pulmonary disease, unspecified Medical History Mild intermittent asthma, uncomp licated Medical History Gastro-esophageal re flux disease without esophagitis Medical History Chronic kidney disease, stage 5 Medical History End stage renal disease Medical History Elevation of levels of liver transaminase levels Medical History Other specified diab etes mellitus with foot ulcer Medical History Non-pressure chronic ulcer of other part of unspecified foot with unspecified severity Medical History Contusion of toe (resolved 04/15) Medical History Hiccough (resolved 03/08/2015) Medical History Noninf Gastroenterit Nec (resolved 04/15/2014) Medical History Local Skin Infection Nos (resolved 04/15/2014) Medical History Noninfectious gastro enteritis, unspecified type (resolved 10/16/2021) Medical History Contusion of right l tete toe(s) without damage to nail, subsequent encounter (resolved 10/16/2021) Medical History Local infection of t he skin and subcutaneous tissue, unspecified (resolved 10/16/2021) Medical History Alcohol dependence Medical History Coronary artery dise ase involving coronary bypass graft of lime heart without angina pectoris Medical History Other constipation Medical History Type 2 diabetes karlos itus w diabetic neuropathic arthropathy Medical History Diarrhea, unspecified Medical History Disorder of muscle, unspecified Medical History Muscle weakness (generalized) Medical History Unsp fracture of rig ht toe(s), subs for fx w routn heal Medical History Other idiopathic per ipheral autonomic neuropathy Medical History Sleep disorder, unspecified Medical History Other peripheral vertigo, bilate ral Medical History Unspecified bacterial pneumonia Medical History Cellulitis of right lower limb Medical History Pain in right ankle and joints of right foot Medical History Low back pain Medical History Displ transverse fx shaft of unsp fibula, 7thD Medical History Hiccough Medical History Other chronic osteom yelitis of foot, unspecified laterality Medical History Physical debility Medical History Tobacco dependence d ue to chewing tobacco Surgical History Bilateral foot ulcer debridemen t 02/01/2021 Surgical History Right 5th toe amputa tion, 5th metatarsal head resection, and multiple soft tissue and bony C and S specimens taken as well as 5th metatarsal biopsy by Doc Ghosh DPM 12/15/2020 Surgical History Tunneled venous cath eter replacement, right IJ, by Lily Han MD 03/18/2020 Surgical History Insertion nail intra medullary tibia by Deandre Mart III, MD. Postop Dx: Right distal tibia shaft fracture 03/13/2020 Surgical History Hallux amputation an d excision debridement diabetic foot ulcer, plantar aspect, right foot and plantar 2nd toe by Doc Ghosh DPM 05/13/2020 Surgical History Permcath insertion b y Dr. Marquis Hopkins MD 05/14/2019 Surgical History Coronary artery x3 bypass 05/27 Surgical History AV fistula placement Surgical History Inguinal hernia repair Surgical History Benign tumor removal from neck Surgical History Multiple tooth extractions Surgical History Peritoneal catheter insertion Surgical History Throat surgery for e sophageal plaque found on EGD Surgical History Incision and drainag e of left abscess by Flo Brown DO Postop Dx: Left foot infection 06/24/2018 Surgical History Colonoscopy by Camden Dickey MD Postop Dx: Normal colonoscopy 01/02/2018 Hospitalization History osteomyelitis, bilateral foot ulcers 12/22 Hospitalization History at [facility] for hypo tension. Discharge Dx: Sepsis, hypokalemia, dilated cardiomyopathy, debridement foot ulcer bilaterally and Grafix PL Prime 01/30/2021-02/03/2021 Hospitalization History at [facility] - positive for C OVID. 07/24/2021 Hospitalization History at [facility] for gene ralized weakness and low blood pressure. Discharge Dx: Symptomatic anemia, ESRD, chronic systolic heart failure, hypomagnesemia, diabetic foot ulcer, T2 DM, GERD, diabetic neuropathy, COPD, benign hypertension 12/13/2020-12/22/2020 Hospitalization History at [facility]. Dx: Sarah sed fracture of right tibia and fibula 03/14/2020-03/16/2020 Hospitalization History at [facility] for gang jose of toe of right foot 05/10/2020-05/20/2020 Hospitalization History at [facility] for cellulitis o f right foot 04/24/2020- Hospitalization History at [facility] for shor tness of breath and abnormal lab, BNP 25,000, creatinine 5.8, troponin 0.32. Admission Dx: NSTEMI and dyspnea. 05/13/2019-06/01/2019 Hospitalization History at [facility] for abno rmal labs. Discharge Dx: Dyspnea on exertion, presumed new-onset CHF, TELMA on CKD stage III. 01/07/2019-01/10/2019 Hospitalization History at [facility] for left foot swelling. 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 Medical History Type 2 diabetes karlos itus with foot ulcer Medical History Type 2 diabetes karlos itus with hyperglycemia Medical History Hyperlipidemia, unspecified Medical History Hypomagnesemia Medical History Essential (primary) hypertension Medical History Heart failure, unspecified Medical History Allergic rhinitis, unspecified Medical History Chronic obstructive pulmonary disease, unspecified Medical History Mild intermittent asthma, uncomp licated Medical History Gastro-esophageal re flux disease without esophagitis Medical History Chronic kidney disease, stage 5 Medical History End stage renal disease Medical History Elevation of levels of liver transaminase levels Medical History Other specified diab etes mellitus with foot ulcer Medical History Non-pressure chronic ulcer of other part of unspecified foot with unspecified severity Medical History Contusion of toe (resolved 04/15) Medical History Hiccough (resolved 03/08/2015) Medical History Noninf Gastroenterit Nec (resolved 04/15/2014) Medical History Local Skin Infection Nos (resolved 04/15/2014) Medical History Noninfectious gastro enteritis, unspecified type (resolved 10/16/2021) Medical History Contusion of right l tete toe(s) without damage to nail, subsequent encounter (resolved 10/16/2021) Medical History Local infection of t he skin and subcutaneous tissue, unspecified (resolved 10/16/2021) Medical History Alcohol dependence Medical History Coronary artery dise ase involving coronary bypass graft of lime heart without angina pectoris Medical History Other constipation Medical History Type 2 diabetes karlos itus w diabetic neuropathic arthropathy Medical History Diarrhea, unspecified Medical History Disorder of muscle, unspecified Medical History Muscle weakness (generalized) Medical History Unsp fracture of rig ht toe(s), subs for fx w routn heal Medical History Other idiopathic per ipheral autonomic neuropathy Medical History Sleep disorder, unspecified Medical History Other peripheral vertigo, bilate ral Medical History Unspecified bacterial pneumonia Medical History Cellulitis of right lower limb Medical History Pain in right ankle and joints of right foot Medical History Low back pain Medical History Displ transverse fx shaft of unsp fibula, 7thD Medical History Hiccough Medical History Other chronic osteom yelitis of foot, unspecified laterality Medical History Physical debility Medical History Tobacco dependence d ue to chewing tobacco Surgical History Bilateral foot ulcer debridemen t 02/01/2021 Surgical History Right 5th toe amputa tion, 5th metatarsal head resection, and multiple soft tissue and bony C and S specimens taken as well as 5th metatarsal biopsy by Doc Ghosh DPM 12/15/2020 Surgical History Tunneled venous cath eter replacement, right IJ, by Lily Han MD 03/18/2020 Surgical History Insertion nail intra medullary tibia by Deandre Mart III, MD. Postop Dx: Right distal tibia shaft fracture 03/13/2020 Surgical History Hallux amputation an d excision debridement diabetic foot ulcer, plantar aspect, right foot and plantar 2nd toe by Doc Ghosh DPM 05/13/2020 Surgical History Permcath insertion b y Dr. Marquis Hopkins MD 05/14/2019 Surgical History Coronary artery x3 bypass 05/27 Surgical History AV fistula placement Surgical History Inguinal hernia repair Surgical History Benign tumor removal from neck Surgical History Multiple tooth extractions Surgical History Peritoneal catheter insertion Surgical History Throat surgery for e sophageal plaque found on EGD Surgical History Incision and drainag e of left abscess by Flo Brown DO Postop Dx: Left foot infection 06/24/2018 Surgical History Colonoscopy by Camden Dickey MD Postop Dx: Normal colonoscopy 01/02/2018 Surgical History Left below the knee amputation 01/14/2022 Hospitalization History osteomyelitis, bilateral foot ulcers 12/22 Hospitalization History at [facility] for hypo tension. Discharge Dx: Sepsis, hypokalemia, dilated cardiomyopathy, debridement foot ulcer bilaterally and Grafix PL Prime 01/30/2021-02/03/2021 Hospitalization History at [facility] - positive for C OVID. 07/24/2021 Hospitalization History at [facility] for gene ralized weakness and low blood pressure. Discharge Dx: Symptomatic anemia, ESRD, chronic systolic heart failure, hypomagnesemia, diabetic foot ulcer, T2 DM, GERD, diabetic neuropathy, COPD, benign hypertension 12/13/2020-12/22/2020 Hospitalization History at [facility]. Dx: Sarah sed fracture of right tibia and fibula 03/14/2020-03/16/2020 Hospitalization History at [facility] for gang jose of toe of right foot 05/10/2020-05/20/2020 Hospitalization History at [facility] for cellulitis o f right foot 04/24/2020- Hospitalization History at [facility] for shor tness of breath and abnormal lab, BNP 25,000, creatinine 5.8, troponin 0.32. Admission Dx: NSTEMI and dyspnea. 05/13/2019-06/01/2019 Hospitalization History at [facility] for abno rmal labs. Discharge Dx: Dyspnea on exertion, presumed new-onset CHF, TELMA on CKD stage III. 01/07/2019-01/10/2019 Hospitalization History at [facility] for left foot swelling. Discharge Dx: Left foot cellulitis with MRSA positive wound culture, s/p debridement 06/21/2018-06/25/2018 Hospitalization History at [facility] for left foot swelling. 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 Medical History 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 Medical History Type 2 diabetes karlos itus with foot ulcer Medical History Type 2 diabetes karlos itus with hyperglycemia Medical History Hyperlipidemia, unspecified Medical History Hypomagnesemia Medical History Essential (primary) hypertension Medical History Heart failure, unspecified Medical History Allergic rhinitis, unspecified Medical History Chronic obstructive pulmonary disease, unspecified Medical History Mild intermittent asthma, uncomp licated Medical History Gastro-esophageal re flux disease without esophagitis Medical History Chronic kidney disease, stage 5 Medical History End stage renal disease Medical History Elevation of levels of liver transaminase levels Medical History Other specified diab etes mellitus with foot ulcer Medical History Non-pressure chronic ulcer of other part of unspecified foot with unspecified severity Medical History Contusion of toe (resolved 04/15) Medical History Hiccough (resolved 03/08/2015) Medical History Noninf Gastroenterit Nec (resolved 04/15/2014) Medical History Local Skin Infection Nos (resolved 04/15/2014) Medical History Noninfectious gastro enteritis, unspecified type (resolved 10/16/2021) Medical History Contusion of right l tete toe(s) without damage to nail, subsequent encounter (resolved 10/16/2021) Medical History Local infection of t he skin and subcutaneous tissue, unspecified (resolved 10/16/2021) Medical History Alcohol dependence Medical History Coronary artery dise ase involving coronary bypass graft of lime heart without angina pectoris Medical History Other constipation Medical History Type 2 diabetes karlos itus w diabetic neuropathic arthropathy Medical History Diarrhea, unspecified Medical History Disorder of muscle, unspecified Medical History Muscle weakness (generalized) Medical History Unsp fracture of rig ht toe(s), subs for fx w routn heal Medical History Other idiopathic per ipheral autonomic neuropathy Medical History Sleep disorder, unspecified Medical History Other peripheral vertigo, bilate ral Medical History Unspecified bacterial pneumonia Medical History Cellulitis of right lower limb Medical History Pain in right ankle and joints of right foot Medical History Low back pain Medical History Displ transverse fx shaft of unsp fibula, 7thD Medical History Hiccough Medical History Other chronic osteom yelitis of foot, unspecified laterality Medical History Physical debility Medical History Tobacco dependence d ue to chewing tobacco Medical History Local infection of t he skin and subcutaneous tissue, unsp (resolved 10/16/2021) Medical History Cellulitis of left foot Medical History Pain in left shoulder Medical History Pain in right shoulder Surgical History Inguinal hernia repair Surgical History Throat surgery for e sophageal plaque found on EGD Surgical History Peritoneal catheter insertion Surgical History AV fistula placement Surgical History Multiple tooth extractions Surgical History Excision of large se baceous cyst, left posterior shoulder, by Aman Abraham MD. path: Epidermal inclusion cyst 08/24/2011 Surgical History Colonoscopy for unex plained diarrhea by Camden Dickey MD, at [facility]. Postop Dx: Normal colonoscopy 01/02/2018 Surgical History Incision and drainag e of left abscess by Flo Brown DO. Postop Dx: Left foot infection 06/24/2018 Surgical History Permcath insertion b y Marquis Hopkins MD, at [facility]. Postop Dx: TEMLA on CKD 05/14/2019 Surgical History Coronary angiography w/left heart catheterization by Marquis Pierce MD, at [facility]. Postop Dx: Severe lime CAD, moderately depressed left ventricular systolic function 05/18/2019 Surgical History CABG x3 with MEJIA to LAD by Tiago Gaytan MD, at [facility]. Postop Dx: Angina, CAD, non-STEMI, renal failure (on hemodialysis), COPD, tobacco abuse, alcohol abuse 05/27/2019 Surgical History Insertion nail intra medullary tibia by Deandre Mart III, MD. Postop Dx: Right distal tibia shaft fracture 03/13/2020 Surgical History Right tunneled venou s catheter replacement - IJ, by Lily Han MD, at [facility]. Postop Dx: ESRD 03/18/2020 Surgical History Hallux (plantar) amp utation, excision debridement diabetic ft ulcer, R ft and plantar 2nd toe by Rafa Ghosh DPM, at [facility]. Postop Dx: Postop Dx: 1) R hallux wet gangrene; 2) Diabetic R forefoot plantar ulcer; 3) Plantar 2nd toe ulcer w/necrotic tissue 05/13/2020 Surgical History R 5th toe amputation , 5th MT head resection, multiple soft-tissue / bony C&S specimens, 5th MT biopsy by Rafa Ghosh DPM, at [facility]. Postop Dx: 1) Diabetic foot ulcer; 2) Wet gangrene R 5th toe; 3) Osteomyelitis 5th toe 12/15/2020 Surgical History Bilateral foot ulcer debridemen t 02/01/2021 Surgical History Left below-knee ampu tation, revision and closure by Kim Garcia MD, at [facility]. Postop Dx: S/P open above-knee amputation for necrotizing fasciitis and gangrene of the foot 01/14/2022 Hospitalization History [facility] for left fo ot swelling. Discharge Dx: Left foot cellulitis with MRSA positive wound culture, s/p debridement 06/21/2018-06/25/2018 Hospitalization History [facility] for abnorma l labs. Discharge Dx: Dyspnea on exertion, presumed new-onset CHF, TELMA on CKD stage 3. 01/07/2019-01/10/2019 Hospitalization History [facility] for shortne ss of breath and abnormal lab, BNP 25,000, creatinine 5.8, troponin 0.32. Dx: NSTEMI and dyspnea. 05/13/2019-06/01/2019 Hospitalization History [facility] for fractur ed tibia. Discharge Dx: Closed fracture of right tibia and fibula 03/14/2020-03/16/2020 Hospitalization History [facility] for cellulitis of r ight foot 04/24/2020-04/26/2020 Hospitalization History [facility] for gangrene of toe of right foot 05/10/2020-05/20/2020 Hospitalization History [facility] for general ized weakness and low blood pressure. Discharge Dx: Symptomatic anemia, ESRD, chronic systolic heart failure, hypomagnesemia, diabetic foot ulcer, T2 DM, GERD, diabetic neuropathy, COPD, benign hypertension 12/13/2020-12/22/2020 Hospitalization History [facility] for hypoten barry. Discharge Dx: Sepsis, hypokalemia, dilated cardiomyopathy, debridement foot ulcer bilaterally and [employer] [address] [facility] 01/30/2021-02/03/2021 Hospitalization History [facility] - positive for COVI D. 07/24/2021 Hospitalization History [facility] for left fo ot swelling. Discharge DX: Necrotizing fasciitis of lower leg 01/09/2022-01/23/2022 [facility] Other Hospital course Narrative No data available for this section [facility] Discharge instructions No data available for this section [facility] Reason for referral (narrative)No reason for referral information [facility]Co[facility] Work Phone: Rejoyr for visit NarrativeER Follow up/ [facility] Other Chief Complaint and Reason for Visit Chief Complaint ESRD ESRD Chief Complaint U07.1 Chief Complaint U07.1 ANEMIA CKD Chief Complaint U07.1 ANEMIA CKD ANEMIA, CKD Chief Complaint U07.1 ANEMIA CKD ANEMIA, CKD HYPERTENSIVE HEART AND CRONIC KIDNEY FAILURE Chief Complaint U07.1 ANEMIA CKD ANEMIA, CKD HYPERTENSIVE HEART AND CRONIC KIDNEY FAILURE I13.2, N18.6 I13.2 Chief Complaint U07.1 ANEMIA CKD ANEMIA, CKD HYPERTENSIVE HEART AND CRONIC KIDNEY FAILURE I13.2, N18.6 I13.2 DM, RENAL DISEASE Chief Complaint U07.1 ANEMIA CKD ANEMIA, CKD HYPERTENSIVE HEART AND CRONIC KIDNEY FAILURE I13.2, N18.6 I13.2 DM, RENAL DISEASE N18.6 Z89.512 D63.1 J44.9 Z79.4 Chief Complaint U07.1 ANEMIA CKD ANEMIA, CKD HYPERTENSIVE HEART AND CRONIC KIDNEY FAILURE I13.2, N18.6 I13.2 DM, RENAL DISEASE N18.6 Z89.512 D63.1 J44.9 Z79.4 ANEMIA N18.6, E11.9 N18.6 d63.1 J44.9 N18.6 Z89.512 D63.1 E11.59 E11.622 J44.9 Chief Complaint U07.1 ANEMIA CKD ANEMIA, CKD HYPERTENSIVE HEART AND CRONIC KIDNEY FAILURE I13.2, N18.6 I13.2 DM, RENAL DISEASE N18.6 Z89.512 D63.1 J44.9 Z79.4 ANEMIA N18.6, E11.9 N18.6 d63.1 J44.9 N18.6 Z89.512 D63.1 E11.59 E11.622 J44.9 HYPERTENSIVE HEART AND CKD W/HF STGE 5, ESRD,I13.2 Chief Complaint I13.2 Chief Complaint I13.2 J44.9, Chief Complaint I13.2 J44.9, I13.2, N18.6, HYPERKALEMIA Chief Complaint I13.2, N18.6, HYPERK ALEMIA HYPERLIPIDEMIA Chief Complaint Admit Date LAB WORK October 30, 2024 8:3 9pm LEFT SHOULDER December 03, 2024 12:57 pm room 1 December 03, 2024 1:21p m Abnormal EKG December 08, 2024 10:47 am Reason for Visit Admit Date Left shoulder pain December 03, 2024 12:57 pm Atrial fibrillation December 08, 2024 10:47 am CAD (coronary artery disease) December 08, 2024 10:47am Diabetes December 08, 2024 10:47 am Dyslipidemia December 08, 2024 10:47 am End stage renal disease December 08, 2024 1 0:47am History of coronary artery bypass graft x 3 December 08, 2024 10:47am Hypertension December 08, 2024 10:47 am Left ventricular systolic dysfunction (L VSD), NYHA class 2 December 08, 2024 10:47am S/P bilateral BKA (below knee amputation ) December 08, 2024 10:47am Assessments No Assessments Information AvailableNo Assessments Information Available Reason for Referral Reason PT here with Eusebio Diagnosis 1 Physical debility (R 53.81) Diagnosis 2 Muscle weakness (gen eralized) (M62.81) Referral Organization [facility] Referring Provider First Name Erik Referring Provider Last Name Beena Referring Provider Specialty Family [facility] Referred Provider Specialty Physical The rapist Referral Priority Routine General Notes Joie Addisonina 01/2022 05:49:31 PM >[facility] [address] [place] [phone] referral faxed, their office will contact patient. Reason Needs evaluation for power chair (Physical therapy - [facility]) Will be starting PT with Eusebio - so please stay with [facility] if possible Diagnosis 1 Muscle weakness (gen eralized) (M62.81) Diagnosis 2 Physical debility (R 53.81) Referral Organization [facility] Referring Provider First Name Erik Referring Provider Last Name Beena Referring Provider Specialty Family [facility] cine Referred Provider Specialty Enoch s Referral Priority Routine Advance Directives No Advanced Directives Records Found Advance Directive Response Recorded Date/ Time Living Will No August 18 11:34am Does Patient Have Advance Directives? No August 18, 2021 11:34am Healthcare POA? Yes August 18 11:34am Legal POA No August 18 11:34am Advance Directive Response Recorded Date/ Time Living Will No August 18 12:34pm Does Patient Have Advance Directives? No August 18, 2021 12:34pm Healthcare POA? Yes August 18 12:34pm Legal POA No August 18 12:34pm Summary Purpose Family History No Family History Records Found Relationship Condition Age at Onset Recorded Date/T edgardo father Cardiac disease Unknown Hypertension Unknown Hyperlipidemia Unknown grandmother Cardiac disease Unknown Diabetes mellitus Unknown mother Motor vehicle accident Unknown brother Malignant neoplasm Unknown Additional Source Comments REASON FOR VISIT (unrecogniz ed section and content) Question - hiccupsHiccups fo r 20 daysLeft AMApatient questionpatient wanted follow up from being in the hospital stay in [place].No InformationChart UpdateCM SNF discharge.Discharged from [place], Discuss power wheelchair., Has not seen Endo for quite some time, due to having COVID and not wanting to go to appointments.", Would like referral to PT here in our office.Medication Request from PharmacyNo InformationPatient is here for hospital follow up, Left BKArefillsRX requestThrush medicationChart UpdateRefills Care Teams (unrecognized sec tion and content) Team Status: Active Member Role Status Dates [facility] Active Team Status: Inactive Member Role Status Dates [facility] Care Provider Active KIM QUEVEDO DO Attending Provider Active Team Status: Inactive Member Role Status Dates ERIK [facility] Primary Care Provider Active ROBERTO QUEVEDO DO Attending Provider Active Team Status: Inactive Member Role Status Dates ERIK [facility] Primary Care Provider Active Start: May 29, 2023 End: May 29, 2023 KIM QUEVEDO DO Attending Provider Active Start: May 29, 2023 End: May 29, 2023 Team Status: Inactive Member Role Status Dates ERIK [facility] Primary Care Provider Active Start: July 05, 2023 End: July 05, 2023 KIM QUEVEDO DO Attending Provider Active Start: July 05, 2023 End: July 05, 2023 Team Status: Inactive Member Role Status Dates ERIK [facility] Primary Care Provider Active Start: July 11, 2023 End: July 11, 2023 KIM QUEVEDO DO Attending Provider Active Start: July 11, 2023 End: July 11, 2023 Team Status: Inactive Member Role Status Dates ERIK [facility]GR[facility] Primary Care Provider Active Start: October 03, 2023 End: October 03, 2023 KIM QUEVEDO DO Attending Provider Active Start: October 03, 2023 End: October 03, 2023 Team Status: Active Member Role Status Dates Dr. Bella Oneal MD Primary Care Provider Active Start: October 30, 2024 Dr. Gila PINTO MD Attending Provider Active Start: October 30, 2024 Dr. Gila PINTO MD Referring Provider Active Start: October 30, 2024 Team Status: Inactive Member Role Status Dates Dr. Bella Oneal MD Primary Care Provider Active Start: November 06, 2024 End: November 06, 2024 Dr. Ton Vasquez MD Attending Provider Active Start: November 06, 2024 End: November 06, 2024 Team Status: Inactive Member Role Status Dates Dr. Bella Oneal MD Referring Provider Active Start: December 03, 2024 End: December 03, 2024 Agusto Rogers MD Attending Provider Active St art: December 03, 2024 End: December 03, 2024 Team Status: Inactive Member Role Status Dates Dr. Omer Arora MD Attending Provider Active S tart: December 03, 2024 End: December 03, 2024 Team Status: Inactive Member Role Status Dates Dr. Tiburcio Osborne MD Attending Provider Active Start: December 08, 2024 End: December 08, 2024 Goals (unrecognized section and content) Goals may be documented in a n alternate section (unrecognized sect ion and content) No Status Records FoundNo Status Records FoundNo Status Records FoundNo Status Records FoundNo Status Records Found INFORMATION SOURCE (unrecogn ized section and content) DATE CREATED AUTHOR 10/11/2023 [facility] DATE CREATED AUTHOR AUTHOR'S ORGANIZ ATION 10/11/2023 [facility] DATE CREATED AUTHOR AUTHOR'S ORGANIZ ATION 12/20/2024 [facility] DATE CREATED AUTHOR AUTHOR'S ORGANIZ ATION 12/25/2024 [facility] DATE CREATED AUTHOR AUTHOR'S ORGANIZ ATION 12/28/2024 [facility] FOR RECORDS PERTAINING TO PATIENTS WHO ARE OR HAVE BEEN ENROLLED IN A CHEMICAL DEPENDENCY/SUBSTANCEABUSE PROGRAM, SOME INFORMATION MAY BE OMITTED. This clinical summary was aggregated from multiple sources. Caution should be exercised in using it in the provision of clinical care. This summary normalizes information from multiple sources, and as a consequence, information in this document may materially change the coding, format and clinical context of patient data. In addition, data may be omitted in some cases. CLINICAL DECISIONS SHOULD BE BASED ON THE PRIMARY CLINICAL RECORDS. [employer] [facility]. provides no warranty or guarantee of the accuracy or completeness of information in this document.
[2024-12-30 06:09] LABS: ALB/GLOB Ratio 1.4 RATIO (0.9-2.4); AST(SGOT) 11 U/L (<=37); Alanine Aminotransfer ALT/SGPT 7 U/L (<=46); Albumin, Serum 4.3 g/dL (3.5-5.0); Alkaline Phosphatase 173 U/L (40-129); Anion Gap 16 (5-15); BUN 41 mg/dL (4-19); BUN/Creat Ratio 8.7 RATIO (10-20); Calcium,Total 8.9 mg/dL (7.6-11.0); Carbon Dioxide 25.8 mmol/L (21.0-32.0); Chloride 86 mmol/L (98-108); Creatinine, Serum 4.76 mg/dL (0.70-1.20); EST Glomerular Filtration Rate 14 (>60); Estimated Creatinine Clearance 20.11 ml/min (50-250); Glucose 179 mg/dL (70-99); Potassium 4.9 mmol/L (3.3-5.1); Protein, Total 7.2 g/dL (5.9-8.4); Sodium Level 128 mmol/L (133-145); Total Bilirubin 0.54 mg/dL (0.00-1.30)
--- NOTE | 2024-12-30 06:11 | CT_ITS ---
PROCEDURE: CT CHEST, ABD, PELVIS WO CONT 12/30/2024 REASON FOR EXAM: INFECTION, UNCLEAR SOURCE TECHNIQUE: Chest, abdomen and pelvis CT without intravenous contrast. Coronal and Sagittal reconstruction series were provided. One or more dose reduction techniques were used (e.g., Automated exposure control, adjustment of the mA and/or kV according to patient size, use of iterative reconstruction technique. RADIATION DOSE SUMMARY: CTDlvol: 27.06 mGy DLP: 2240 mGycm COMPARISON: 12/30/2024. FINDINGS: Mild cardiomegaly. Prior CABG. Bilateral basilar atelectatic pulmonary changes. Subsegmental atelectasis/airspace disease of the right middle lobe and lingula, probably multifocal pneumonia. Mild multifocal ground-glass densities of the lung bases, possibly multifocal pneumonia. Hepatomegaly. Cystic lesion is noted along the lesser curvature of the stomach extending to the lesser sac measuring 7.5 x 5.3 cm, suspicious for neoplastic pathology. Cholelithiasis with mild diffuse thickening of the wall of the gallbladder. This can be further evaluated by ultrasound exam. Heterogeneous cystic central mesenteric mass lesion is noted measuring 17 x 22 x 19.3 cm, probably neoplastic pathology. Splenomegaly measuring 16.3 cm. Mild osteopenia. Diffuse spondylosis. Bilateral nonobstructing renal stones with the largest measuring 2 mm. Fat containing umbilical hernia without incarceration. Normal unenhanced main pulmonary artery and right and left pulmonary arteries. Normal bilateral peripheral pulmonary arteries. Normal thoracic aorta and visualized great vessels. There is no demonstrated aortic aneurysm. Normal pericardium. Normal mediastinum. Normal hilar regions. Normal visualized trachea and bronchi. Normal pleura. Normal unenhanced liver. Normal extrahepatic biliary system. Normal pancreas. Normal bilateral adrenal glands. Normal size of the right kidney. There is no right renal mass. There is no right hydronephrosis. Normal visualized right ureter. Normal size of the left kidney. There is no left renal mass. There is no left hydronephrosis. Normal visualized left ureter. Normal visualized stomach. Normal small intestine. Normal colon. The appendix is visualized and appears normal. There is no demonstrated peritoneal fluid. Normal abdominal aorta. Normal inferior vena cava. Normal retroperitoneum. Normal urinary bladder. There is no pelvic mass lesion or lymphadenopathy. There is no pelvic fluid. CT/CT Chest, Abd, Pelvis WO Cont IMPRESSION: 1. Mild cardiomegaly. 2. Prior CABG. 3. Bilateral basilar atelectatic pulmonary changes. 4. Subsegmental atelectasis/airspace disease of the right middle lobe and lingu la, probably multifocal pneumonia. 5. Mild multifocal ground-glass densities of the lung bases, possibly multifoca l pneumonia. 6. Hepatomegaly. 7. Cystic lesion is noted along the lesser curvature of the stomach extending t o the lesser sac measuring 7.5 x 5.3 cm, suspicious for neoplastic pathology. 8. Cholelithiasis with mild diffuse thickening of the wall of the gallbladder. This can be further evaluated by ultrasound exam. 9. Heterogeneous cystic central mesenteric mass lesion is noted measuring 17 x 22 x 19.3 cm, probably neoplastic pathology. 10. Splenomegaly measuring 16.3 cm. 11. Mild osteopenia. 12. Diffuse spondylosis. 13. Bilateral nonobstructing renal stones with the largest measuring 2 mm. 14. Fat containing umbilical hernia without incarceration. Reading [facility]
[2024-12-30] MEDS: Ipratropium/Albuterol Sulfate 3 ML AMPUL.NEB INHALATION ×2 (06:42→17:07)
[2024-12-30] MEDS: Acetaminophen 325 MG Tablet 650 MG PO (06:51)
[2024-12-30] MEDS: Neomycin/Polymyxin/Dexameth 5ML OPTH.BTL 4 DRP OTIC ×3 (06:52→18:25)
[2024-12-30 06:58] LABS: Lactic Acid 1.1 mmol/L (0.0-2.0)
[2024-12-30] MEDS: Piperacil/Tazobactam 3.375 GM in 0.9% Normal Saline (50mL MB+) 50 ML IV (08:59)
[2024-12-30] MEDS: Vancomycin HCl 2,000 MG in 0.9% Normal Saline (500mL Bag) 500 ML 250 MG IV (10:40)
[2024-12-30] MEDS: Acetaminophen 500 MG Tablet 1000 MG PO (10:40)
--- NOTE | 2024-12-30 13:43 | PCA ---
THIS H[employer]ERGY FORMING EQUIPMENT OPERATOR CALLED THE [employer] TRANSFER LINE TO GET AN UPDATE ON THE BED ASSIGNMENT FOR THE PATIENT. TITI AT THE TRANSFER LINE SAID DISCHARGES DON'T NORMALLY BEGIN UNTIL 1400. SOONEST PATIENT SHOULD HAVE A BED IS AROUND DINNER TIME. TITI SAID THAT ITS FAIRLY LIKELY THAT PATIENT SHOULD RECEIVE A BED BY TONIGHT, LONG DISCHARGES ARE STILL ON TRACK. THIS HIGH ENERGY FORMING EQUIPMENT OPERATOR REQUESTED THAT SHE UPDATE US WITH ANY UPDATES THROUGHOUT THE EVENING.
--- NOTE | 2024-12-30 14:46 | ED.RN ---
update given to Justin Bush to inform of pt transfer.
[2024-12-30 16:05] LABS: Bedside Glucose 183 mg/dL (74-106)
== END 2024-12-30 18:55 | disposition short-term general hospital (02) ==
PROVIDERS: Emergency Provider Emergency Medicine; PCP Hospitalist; Visit Provider Emergency Medicine
DX: J18.9 Pneumonia, unspecified organism (principal); I12.0 Hypertensive chronic kidney disease with stage 5 chronic kidney disease or end stage renal disease; N18.6 End stage renal disease; I48.91 Unspecified atrial fibrillation; E11.40 Type 2 diabetes mellitus with diabetic neuropathy, unspecified; E11.22 Type 2 diabetes mellitus with diabetic chronic kidney disease; I25.10 Atherosclerotic heart disease of native coronary artery without angina pectoris; E87.1 Hypo-osmolality and hyponatremia; Z99.2 Dependence on renal dialysis; Z87.891 Personal history of nicotine dependence; Z95.1 Presence of aortocoronary bypass graft
CPT/HCPCS: 71045; 71250; 74176; 80053; 82803; 82962; 83605; 85025; 87040; 93005; 94640; 96365; 96366; 96367; 99285; A4216

== ENCOUNTER → 2025-01-12 | Outpatient (CLI) | payer MEDICAID, SELFPAY ==
--- NOTE | 2025-01-12 08:10 | ECHOCS_ITS ---
Reason For Study Reason For Study: CDA/ASHD Procedure This was a 2D Doppler, Color Flow transthoracic echocardiogram. Contrast injection was performed. The study was technically difficult. Exam performed in department. Left Ventricle Normal LV size. Mild LV concentric hypertrophy. Generalized LV hypokinesis with dyssynchronous wall motion with underlying bundle branch block. Estimated LVEF 40%. Stage I diastolic dysfunction. Right Ventricle Normal right ventricle. Atria The left and right atria are normal. Mitral Valve Mild (1+) mitral valve insufficiency. Tricuspid Valve Mild tricuspid valve insufficiency. Right ventricular systolic pressure estimated to be 47 mmHg. Aortic Valve Trisinus/trileaflet aortic valve. Pulmonic Valve The pulmonic valve is not well visualized. Trivial pulmonic valve insufficiency. Great Vessels Normal sized aortic root. Pericardium/Pleural No pericardial effusion. Medication Diluted definity 2ml given slow IV push to enhance endocardial definition. MMode/2D Measurements & Calculations LVIDd: 6.3 cm IVSd: 1.3 cm Ao root diam: 3.3 cm LVIDs: 5.2 cm LVPWd: 1.2 cm LA dimension: 4.1 cm RVDd: 4.0 cm FS: 17.8 % LAV(MOD-bp): 52.4 ml LVAd ap4: 37.1 cm2 SV(MOD-sp4): 54.7 ml LAV(MOD-bp) Indexed: 26.3 ml/m2 LVLd ap4: 8.7 cm SI(MOD-sp4): 27.5 ml/m2 LAV(MOD-sp2): 50.3 ml EDV(MOD-sp4): 131.8 ml LAV(MOD-sp4): 48.6 ml EDV(sp4-el): 133.6 ml LVAs ap4: 26.5 cm2 LVLs ap4: 7.6 cm ESV(MOD-sp4): 77.1 ml ESV(sp4-el): 77.7 ml EF(MOD-sp4): 41.5 % EF(sp4-el): 41.8 % SV(sp4-el): 55.8 ml LA A4 area: 18.6 cm2 LA dimension(2D): 4.0 cm RA A4 area: 13.4 cm2 TAPSE: 1.9 cm Time Measurements MV dec time: 0.18 sec Doppler Measurements & Calculations MV E max titus: 92.8 cm/sec Lat Peak E' Titus: 12.6 cm/sec Med Peak E' Titus: 5.7 cm/sec MV A max titus: 49.8 cm/sec E/E' lat: 7.4 E/E' med: 16.1 MV E/A: 1.9 MV dec slope: 537.2 cm/sec2 Ao V2 max: 168.7 cm/sec LV V1 max: 109.8 cm/sec Ao max P.4 mmHg LV V1 max P.8 mmHg Ao V2 mean: 128.1 cm/sec Ao mean P.1 mmHg Ao V2 VTI: 36.5 cm PA V2 max: 96.6 cm/sec PI end-d titus: 114.3 cm/sec TR max titus: 282.7 cm/sec TR max P.0 mmHg ECHO/Echo Complete W/ Contrast Interpretation Summary Normal LV size. Mild LV concentric hypertrophy. Generalized LV hypokinesis with dyssynchronous wall motion with underlying bundle branch block. Estimated LVEF 40%. Stage I diastolic dysfuncti on. Mild (1+) mitral valve insufficiency. Mild tricuspid valve insufficiency. Right ventricular systolic pressure estimated to be 47 mmHg. The study was technically difficult. Ordering Physician: Tiburcio Osborne Referring Physician: Kayleen Pederson Performed By: Sagrario Bergeron RDCS, RVT
== END | disposition home or self-care (01) ==
LOC: CVS 08:07
PROVIDERS: PCP Hospitalist; Referring Provider Internal Medicine Cardiovascular Disease; Visit Provider Internal Medicine Cardiovascular Disease
DX: I25.10 Atherosclerotic heart disease of native coronary artery without angina pectoris (principal)
CPT/HCPCS: 93306; Q9957; A4216; C8929

== ENCOUNTER → 2025-01-26 | Outpatient (CLI) | payer MEDICAID, SELFPAY ==
--- OUTSIDE RECORDS SUMMARY | 2025-01-26 22:09 | XMS RPT_ITS | CCD ---
Author Organization [facility] Care Team Providers Care Hydramatic Specialist Name Role Phone KATHY BUCHANAN Primary Care Provider [phone] LIVIER LÓPEZ Attending Provider Erik Hargrove Unavailable Connie Montgomery Unavailable PHILLIP HARGROVE-MAYURI Meehan Primary Care Provider DO KIM QUEVEDO Attending Provider LINA HARGROVE ERIK N Primary Care Provider [phone] DO ROBERTO QUEVEDO Attending Provider DO KIM QUEVEDO Attending Provider LINA HARGROVE Primary Care Provider DO KIM QUEVEDO Attending Provider LINA HARGROVE Primary Care Provider [phone] DO KIM QUEVEDO Attending Provider DOUGLAS STYLES Attending Unavailable KASIE THAPA Attending Unavailable KRYSTEN العلي Attending Unavailable KIM ALVAREZ Attending Unavailable KARENA WHALEN Attending Unavailable SB AGEE Attending Unavailable JORGITO RIVERA Attending Unavailable JORGITO RIVERA Attending Unavailable LEOPOLDO DUFFY Attending Unavailable VICKI RAO Attending Unavailable JORGITO RIVERA Attending Unavailable JORGITO RIVERA Attending Unavailable JORGITO RIVERA Attending Unavailable GILBERT, KIM Attending Unavailable MIGUEL, SHAYGNE Attending Unavailable SCIANCE, VICKI Attending Unavailable MIGUEL, SHAYGNE Attending Unavailable GILBERT, KIM Attending Unavailable GILBERT, [...] Care Unavailable KIM QUEVEDO Attending Unavailable KIM QUEEVDO Referring Unavailable HARGROVE, ERIK N Primary Care Unavailable KIM QUEVEDO Attending Unavailable ROBERTO QUEVEDO Referring Unavailable ROBERTO QUEVEDO Attending Unavailable HARGROVE, ERIK [...] Primary Care Unavailable KIM QUEVEDO Attending Unavailable QUEVEDO, DAVID Referring Unavailable HARGROVE, ERIK N Primary Care Unavailable KIM QUEVEDO Attending Unavailable HARGROVE, ERIK N Primary Care Unavailable KIM QUEVEDO Attending Unavailable QUEVEDOKIM DIXON Referring Unavailable HARGROVE, ERIK N Primary Care Unavailable KIM QUEVEDO Referring Unavailable QUEVEDOKIM DIXON Attending Unavailable HARGROVE, ERIK N Primary Care Unavailable KIM QUEVEDO Referring Unavailable QUEVEDO, DAVID Attending Unavailable HARGROVE, ERIK N Primary Care Unavailable QUEVEDOKIM DIXON Attending Unavailable HARGROVE, ERIK N Primary Care Unavailable QUEVEDOKIM DIXON Attending Unavailable HARGROVE, ERIK N Primary Care Unavailable KIM QUEVEDO Attending Unavailable HARGROVE, ERIK N Primary Care Unavailable KIM QUEVEDO Attending Unavailable HARGROVE, ERIK N Primary Care Unavailable KIM QUEVEDO Attending Unavailable HARGROVE, ERIK N Primary Care Unavailable KIM QUEVEDO Attending Unavailable HARGROVE, ERIK N Primary Care Unavailable IKM QUEVEDO Attending Unavailable HARGROVE, ERIK N Primary Care Unavailable KIM QUEVEDO Attending Unavailable CIERA EDUCATIONAL PROGRAM DIRECTOR-HEAD CONTROL CLERK, DANTE Primary Care Physician Kathy Bullock Unavailable Unavailable Dr. Bella Oneal MD Primary Care Provider Dr. Gila Bernal MD Attending Provider UnavailDr. Gila Potter MD Referring Provider Unavailbarbara Vasquez MD, Dr. Shultz Attending Provider Dr. Bella Oneal MD Referring Provider Agusto Rogers MD Attending Provider Dr. Omer Arora MD Attending Provider Dylon TO, Dr. Dey Attending Provider KIZZY MEDEROS DO Attending Unavailable DR ZAIN FERRO MD Consulting Unavailable CIERALYNNE DAN, DANTE Primary Care Unavai labmary REFERRING, PHY WO ID Attending Unavailable CIERALISA DAN, DANTE Primary Care Shazia Pederson MD, Dr. Kayleen Martinez [facility] er Dr. Poppy Singh DO Emergency Provider Dylon TO, Dr. Dey Referring Provider Gudla OLS Gila Attending Unavailable Gudla OLS Gila Referring Unavailable Topton, Bella Primary Care Unavailable Jm, Bella Primary Care Unavailable Ton Vasquez Attending Unavailable Jason Morris Attending Unavailable Jm, Bella Primary Care Unavailable Topton, Bella Attending Unavailable Jm, Bella Referring Unavailable Topton, Bella Primary Care Unavailable Jm, Bella Attending Unavailable Topton, Bella Referring Unavailable Topton, Bella Primary Care Unavailable Topton, Bella Primary Care Unavailable Jm, Bella Referring Unavailable Gretchen Rodriguez Attending Unavailable Topton, Bella Referring Unavailable Agusto Rogers Attending Unavailable Omer Arora Attending Unavailable Morehart, Kayleen Michelle Primary Care Unavailabl e Dylon, Tiburcio Attending Unavailable Yesy Kelly NP Attending Unavailable Morehart, Kayleen Michelle Primary Care Unavailabl Poppy Babcock Attending Unavailable Moredeyanirat, Kayleen Michelle Primary Care UnavailAgusto Livingston Attending Unavailable Agusto Rogers Referring Unavailable Morehart, Kayleen Michelle Primary Care Unavailabl e DylonTiburcio Attending Unavailable Dylon, Tiburcio Referring Unavailable Morehart, Kayleen Michelle Primary Care Unavailabl e Dylon, Tiburcio Attending Unavailable REFERRING, PHY WO ID Attending Unavailable CIERA DAN, DANTE Primary Care Shazia DAN, DANTE Primary Care FLO Marques DO Attending Unavailable BENNY ALEXANDER DO Admitting Unavailable LINETTE TO, RAFY Benedict Consulting Unavailable ELIAS TO, DR SEQUEIRA Consulting Unavailable SANTANA ALDRIDGE MD Consulting Unavailable LUCIUS ANDREWS MD Consulting TRAMAINE Mathew DO Consulting Mitra VANG EDUCATIONAL PROGRAM DIRECTOR-HEAD CONTROL CLERK, DANTE Primary Care Shazia FERRO MD, DR ZAIN Jimenez Admitting TRAMAINE Regan DO Consulting Mitra MARAVILLA MD, KRYSTAL Christensen Attending Mitra gray Unavailable Unavailable Unavailable Unavailable Unavailable Unavailable Medications [...] mg PO Q8H as needed for pain 90 1 January 09, 2024 2:00pm November 24, 2024 2:22pm Start: 12-23-2020 Acetaminophen 500 MG Every 4 hours PRN Oral as directed Dec, Active amLODIPine 5 mg oral tablet (11 sources) Dihydropyridine Calcium Channel Ivet Start: 11-24-2024 take 1 tablet by mouth once Amlodipine 5 mg tablet Active 5 mg PO every Saturday, , , SatNovember 24, 2024 12:00am Start: 12-17-2023 End: 11-24-2024 take 1 tablet by mouth once daily Amlodipine 10 mg tablet Discontinued 10 mg PO daily 90 0 December 24, 2023 2:44pm November 24, 2024 2:03pm aspirin 81 mg delayed release oral tablet (20 sources) Platelet Aggregation Inhibitor, Nonsteroidal Anti-inflammatory Drug Start: 12-17-2024 aspirin 81 mg ora l delayed release tablet Dose : 81 mg = 1 tab(s), Oral, Daily, 0 Refill(s) Start Date: 12/17/24 Status: Ordered Repeat number: 1 Start: 12-08-2024 take 1 tablet by daja th once daily Aspirin 325 mg tablet Active 325 mg PO daily 90 3 December 08, 2024 12:00am Start: 12-17-2023 End: 11-24-2024 take 1 tablet by mouth once daily Aspirin 81 mg tablet,delayed release (/EC) Discontinued 81 mg PO daily 90 0 December 24, 2023 2:45pm November 24, 2024 2:24pm Start: 09-25-2019 take 81 mg by mouth once daily Aspirin Active 81 MG PO Daily September 25, 2019 12:00am atorvastatin 40 mg oral tablet (20 sources) HMG-CoA Reductase Inhibitor Start: 12-17-2023 End: 12-24-2023 atorvastatin 40 mg oral tablet Dose : [...] 99 days May, Active Start: 05-28-2021 calcitriol 0.97984 mg oral c apsule (10 sources) Vitamin D3 Analog Start: 12-15-2019 Start: 12-15-2019 Calcitriol 0.2 5 MCG Oral Prescriber Name: CHENTE Dec, Active calcium carbonate 1250 mg chewable tablet (17 sources) Start: 09-25-2019 Calcium Carbon ate Active 1500 MG .ud September 25, 2019 8:27am TAKES 3 BETWEEN EACH MEAL AND AT BEDTIME Start: 09-25-2019 End: 08-11-2021 Calcium Carbonate Discontinu ed 1500 MG PO .ud September 25, 2019 12:00am August 11, 2021 11:28am TAKES 3 BETWEEN EACH MEAL AND AT BEDTIME cefdinir 300 mg oral capsule (1 source) Cephalosporin Antibacterial Start: 01-01-2025 End: 01-07-2025 cefdinir 300 mg oral capsule Dose : 300 mg = 1 cap(s), Oral, q12h, X 6 day(s), # 12 cap(s), 0 Refill(s), 01/07/25 12:15:00 PM EDT, other reason (Rx), 106.7 Start Date: 01/01/25 Stop Date: 01/07/25 Status: Ordered Quantity: 12.0 Unit: cap(s) Repeat number: 1 ciclopirox 80 mg/ml topical solution (5 sources) Start: 12-17-2024 Ciclodan 8% to pical [...] 06-13-2020 Commode Bedsid e/Back 1 large bedside [id number] Does Not Apply as directed May, Active Start: 06-13-2020 cyclobenzaprine hydrochloride 10 mg oral tablet (10 sources) Muscle Relaxant Start: 12-17-2023 End: 12-24-2023 cyclobenzaprine 10 mg oral tablet Dose : 10 mg = 1 tab(s), Oral, qHS, 0 Refill(s) Start Date: 07/22/24 Status: Ordered Repeat number: 1 diphenhydrAMINE hydrochloride 25 mg oral tablet (20 sources) Histamine-1 Receptor Antagonist Start: 07-22-2024 diphenhydrAMINE 25 m g oral tablet Dose : 25 mg = 1 tab(s), Oral, qHS, PRN as needed for itching, For itching not insomnia, # 30 tab(s), 0 Refill(s) Start Date: 07/22/24 Status: Ordered Quantity: 30.0 Unit: tab(s) Repeat number: 1 Start: 12-17-2023 take 1 capsule by mo uth at bedtime Diphenhydramine Hcl (Banophen) 25 mg [...] Start: 06-07-2020 famotidine 40 mg oral tablet (7 sources) Histamine-2 Receptor Antagonist Start: 07-22-2024 take 1 tablet by mouth once daily Famotidine 40 mg tablet Active 40 mg PO daily November 24, 2024 12:00am Ferrex 150 Forte 150-1-25 MG-MG-MCG (14 sources) Start: 05-23-2020 Start: 05-23-2020 Ferrex 150 For te 150-1-25 MG-MG-MCG Given during dialysis, per [facility] Records. Oral once a day May, Active Start: 05-23-2020 Flash Glucose Scanning Reade r (Freestyle Bianca 2 [place]) [facility] (6 sources) Start: 01-09-2024 Flash Glucose Scanning [place] (Freestyle Bianca 2 [place]) [facility] Active 0 .Route 1 5 January 09, 2024 1:59pm Controlled type 2 diabetes mellitus Type 2 diabetes mellitus without complications 1-2 times daily and as needed Start: 01-09-2024 Flash Glucose Scanning [place] (Freestyle Bianca 2 [place]) [facility] Active 0 .Route 1 January 09, 2024 1:59pm 1-2 times daily and as needed Start: 12-17-2023 End: 01-09-2024 Flash Glucose Scanning Reade r (Freestyle Bianca 2 [place]) [facility] Discontinued 0 .Route 1 December 17, 2023 12:00am January 09, 2024 1:59pm Controlled type 2 diabetes mellitus Type 2 diabetes mellitus without complications 1-2 times daily and as needed Start: 12-17-2023 End: 01-09-2024 Flash Glucose Scanning Reade r (Freestyle Bianca 2 [place]) misc Discontinued 0 .Route 1 December 17, 2023 12:00am January 09, 2024 1:59pm 1-2 times daily and as needed Flash Glucose Sensor (Freestyle Bianca 2 Sensor) kit (6 sources) Start: 01-09-2024 Flash Glucose Sensor (Freestyle Bianca 2 Sensor) kit Active 0 .Route 1 January 09, 2024 1:59pm Controlled type 2 diabetes mellitus Type 2 diabetes mellitus without complications 1-2 times daily and as needed Start: 01-09-2024 Flash Glucose Sensor (Freestyle Bianca 2 Sensor) kit Active 0 .Route 1 January 09, 2024 1:59pm 1-2 times daily and as needed Start: 12-17-2023 End: 01-09-2024 Flash Glucose Sensor (Freest yle Bianca 2 Sensor) kit Discontinued 0 .Route 1 0 December 17, 2023 12:00am January 09, 2024 1:59pm Controlled type 2 diabetes mellitus Type 2 diabetes mellitus without complications 1-2 times daily and as needed Start: 12-17-2023 End: 01-09-2024 Flash Glucose Sensor (Freest yle Bianca 2 Sensor) kit Discontinued 0 .Route 1 December 17, 2023 12:00am January 09, 2024 1:59pm 1-2 times daily and as needed fluticasone propionate 0.05 mg/actuat metered dose nasal spray (9 sources) Corticosteroid Start: 07-22-2024 take 50 ug [...] December 17, 2023 12:00am fluticasone / salmeterol (7 sources) Corticosteroid, beta2-Adrenergic Agonist Start: 07-22-2024 take [...] te 150-1-25 MG-MG-MCG Given during dialysis, per [facility] Records. Oral once a day May, Active Folic Acid/Vit B Complex And C (2 sources) Start: 09-25-2019 Folic Acid/Vit B Complex And C Active 1 TAB Daily September 25, 2019 8:48am gabapentin 300 mg oral capsule (20 sources) Anti-epileptic Agent Start: 12-17-2023 take 1 capsule by mouth once daily Gabapentin 300 mg capsule Active 300 mg PO daily December 17, 2023 12:00am Start: 03-22-2022 take 1 capsule by mo [facility] twice daily Gabapentin 300 MG 1 capsule Oral Twice day for 90 days Mar, Active Start: 03-06-2022 take 1 capsule by mo [facility] twice daily Gabapentin 300 MG 1 capsule Oral Twice day for 90 days Feb, Active Start: 01-09-2022 take 1 capsule by mo [facility] once daily in the morning Gabapentin 300 MG 1 capsule Oral every morning for 90 days Dec, Active Start: 09-04-2021 take 1 capsule by mo ut once daily in the morning Start: 12-23-2020 take 1 capsule by mo [facility] once daily in the morning Gabapentin 300 MG 1 capsule Oral every morning Dec, Active Start: 09-25-2019 take 1 tablet by daja once daily Gabapentin (Neurontin) 600 mg tablet Active 600 MG PO Daily September 25, 2019 12:00am Gait/Transfer Belt (5 sources) Start: 06-13-2020 Gait/Transfer Belt 1 unitR26.89 Does Not Apply as directed May, Active Start: 06-13-2020 handicap placard (3 sources) Start: 12-17-[address] Active 0 .ROUTE .MEDSUPPLY 1 0 December 17, 2023 12:00am Impaired physical mobility Other reduced mobility Length of time: 5 years Impaired physical mobility: Z74.09 Start: 12-17-[address] Active 0 .ROUTE .MEDSUPPLY 1 December 17, 2023 12:00am Length of time: 5 years Impaired physical mobility: Z74.09 hydrALAZINE hydrochloride 50 mg oral tablet (20 sources) Arteriolar Vasodilator Start: 11-24-2024 End: 12-08-2024 take 1 tablet by mouth once in the morning Hydralazine 50 mg tablet Active 50 mg PO .COMPLEX November 24, 2024 12:00am 50 mg orally Q AM ON SAT//SAT/SUN; Start: 09-25-2019 End: 10-04-2020 take 25 mg by mouth three times daily in the evening Hydralazine Discontinued 25 MG PO .UD September 25, 2019 12:00am October 04, 2020 7:58am TAKES 3 TIMES A DAY T; TH & SAT; TAKES ONCE IN EVENING M,W,F Incontinence Pad, Liner, Dis p pad (6 sources) Start: 01-14-2024 Incontinence P ad, Liner, Disp pad Active 0 .Route 80 0 January 14, 2024 12:39pm Incontinence of feces Full incontinence of feces fecal incontinence As directed Start: 01-14-2024 Incontinence P ad, Liner, Disp pad Active 0 .Route 80 January 14, 2024 12:39pm As directed Start: 01-09-2024 End: 01-14-2024 Incontinence Pad, Liner, Dis p pad Discontinued 0 .Route 80 0 January 09, 2024 12:00am January 14, 2024 12:39pm Incontinence of feces Full incontinence of feces fecal incontinence As directed Start: 01-09-2024 End: 01-14-2024 Incontinence [...] 1:00am sliding scale inject 10 [IU] by perez bcutaneous injection three times daily before mealtime [...] sources) Start: 05-17-2020 Iron Complex p er [facility] records rec'd Oral once a day May, Active Start: 05-17-2020 200 actuat levalbuterol 0.045 mg/actuat metered dose inhaler (17 sources) beta2-Adrenergic Agonist Start: 09-25-2019 take 1 puff(s) by inhalation every four to six hours Levalbuterol Tartrate Active 2 PUFF INH Every 4-6 hours September 25, 2019 12:00am lidocaine hydrochloride 0.04 mg/mg topical gel (15 sources) Antiarrhythmic, Amide Local Anesthetic Start: 12-17-2024 [...] NMA TOPICAL DAILY as needed for pain 30 0 December 24, 2023 2:45pm Start: 12-24-2023 Lidocaine (Lid ocaine Pain Relief) 4 % adhesive patch,medicated Active 1 NMA TOPICAL DAILY as needed for pain 30 December 24, 2023 2:45pm Start: 12-17-2023 End: 12-24-2023 Lidocaine (Lidocaine Pain Re lief) 4 % adhesive patch,medicated Discontinued NMA TOPICAL December 17, 2023 12:00am December 24, 2023 2:47pm linezolid 600 mg oral tablet (5 sources) Oxazolidinone Antibacterial Start: 12-23-2020 take 600 mg by mouth twice daily Linezolid 600 MG Oral twice a day Dec, Active loperamide hydrochloride 2 mg oral tablet (20 sources) Opioid Agonist Start: 11-24-2024 Loperamide (Anti-Diarrheal [...] 400 mg oral tablet (20 sources) Start: 12-24-2023 End: 12-24-2023 magnesium oxide 400 [...] 2021 1:00am take 1 tablet by daja th once daily Magnesium Oxide 400 MG 1 tab Orally Once a day per [facility] med list Active melatonin 5 mg oral tablet (10 sources) Start: 12-17-2023 End: 12-24-2023 Melatonin 5 mg oral tablet Dose : 5 mg = 1 tab(s), Oral, qHS, PRN as needed for insomnia, # 60 tab(s), 0 Refill(s) Start Date: 07/22/24 Status: Ordered Quantity: 60.0 Unit: tab(s) Repeat number: 1 24 hr metoprolol succinate 50 mg extended release oral tablet (20 sources) beta-Adrenergic Ivet Start: 12-08-2024 End: 01-01-2025 take 1 tablet by mouth once daily Metoprolol Succinate 50 mg tablet extended release 24 hr Active 50 mg PO daily 90 December 08, 2024 12:00am Start: 09-25-2019 End: 09-25-2019 take 50 mg [...] Start: 07-22-2024 take 1 tablet by daja th three times daily Midodrine 5 mg tablet [...] Active Start: 11-14-2018 Miscellaneous Medical Supply kit (6 sources) Start: 01-09-2024 Miscellaneous Medical Supply kit Active 1 [facility] As Directed 1 0 January 09, 2024 12:00am Incontinence of feces Full incontinence of feces bowel incontinence Bedpan Diagnosis: Fecal incontinence R15.9 Start: 01-09-2024 Miscellaneous Medical Supply kit Active 1 [facility] As Directed 6 0 January 09, 2024 12:00am Below-knee amputation of both lower extremities Nicholas lift sling Diagnosis: Below-knee amputation of both lower extremities S88.111D/S88.112D Start: 01-09-2024 Miscellaneous Medical Supply kit Active 1 [facility] As Directed 1 January 09, 2024 12:00am Bedpan Diagnosis: Fecal incontinence R15.9 Start: 01-09-2024 Miscellaneous Medical Supply kit Active 1 [facility] As Directed January 09, 2024 12:00am Nicholas lift sling Diagnosis: Below-knee amputation of both lower extremities S88.111D/S88.112D montelukast 10 mg oral tablet (20 sources) Leukotriene Receptor Antagonist Start: 09-25-2019 take 1 tablet by mouth once daily Montelukast (Singulair) 10 mg tablet Active 10 MG PO Daily September 25, 2019 12:00am nystatin 100 unt/mg topical ointment (19 sources) Polyene Antifungal Start: 11-24-2024 Nystatin 10 0,000 unit/gram ointment Active NMA TOPICAL November 24, 2024 12:00am Start: 07-22-2024 Mycostatin 100 ,000 units/g topical ointment Apply 1 dina, Topical, QID, 0 Refill(s), 108.8 Start Date: 07/22/24 Status: Ordered Repeat number: 1 Start: 03-14-2022 take 5 mL by mouth f our times daily Nystatin 625620 UNIT/ML 5ml - swish and retain for as long as possible before discarding Mouth/Throat Four times a day for 7 days Feb, Active take 4 mL by mouth f our times daily ondansetron 4 mg oral tablet (16 sources) Serotonin-3 Receptor Antagonist Start: 11-24-2024 take 2 tablets by mouth once daily Ondansetron Hcl 4 mg tablet Active 8 mg PO DAILY November 24, 2024 2:17pm Patient takes before dialysis; Saturday, Saturday, Saturday Start: 12-17-2023 End: 11-24-2024 take 1 tablet by mouth once daily Ondansetron Hcl 4 mg tablet Discontinued 4 mg PO DAILY 90 0 December 24, 2023 2:47pm November 24, 2024 2:26pm Patient takes before dialysis; Saturday, Saturday, Saturday pantoprazole 40 mg delayed release oral tablet (20 sources) Proton Pump Inhibitor Start: 07-22-2024 take 1 tablet by mouth twice daily Pantoprazole 40 mg tablet,delayed release (DR/EC) Active 40 mg PO TWICE A DAY November 24, 2024 2:20pm Start: 12-17-2023 End: 11-24-2024 take 1 tablet by mouth once daily Pantoprazole 40 mg tablet,delayed release (DR/EC) Discontinued 40 mg PO daily 90 0 December 24, 2023 2:47pm November 24, 2024 [...] September 25, 2019 12:00am polyethylene glycol 3350 94079 mg powder for oral solution (7 sources) Osmotic Laxative Start: 12-17-2024 MiraLax oral powder for reconstitution Dose : 17 gram(s) =, Oral, Sat/Sat/Sat, # 238 gram(s), 0 Refill(s) Start Date: 12/17/24 Status: Ordered Quantity: 238.0 Unit: g Repeat number: 1 Start: 11-24-2024 Polyethylene G lycol 3350 17 gram/dose powder Active g PO daily November 24, 2024 2:19pm Give after dialysis Sat/Sat/Saturday and PRN Start: 07-22-2024 take 17 doses by daja th once daily as needed for constipation polyethylene [...] Status: Ordered Repeat number: 1 Start: 12-17-2023 Sodium Chlorid e (Deep Sea Nasal) 0.65 % aerosol,spray Active NMA INTRANASAL December 17, 2023 12:00am Start: 08-23-2021 take 1000 mg by mout h three times daily Sodium Chloride Active 1000 MG PO 3 times per day August 23, 2021 1:00am tamsulosin hydrochloride 0.4 mg oral capsule (20 sources) alpha-Adrenergic Ivet Start: 12-17-2023 End: 12-24-2023 tamsulosin 0.4 mg oral capsule Dose : 0.4 [...] Drug Class(es) Dates Sig (Normalized) Sig (Original) [id number] 200 actuat albuterol 0.09 mg/actuat metered dose inhaler (20 sources) beta2-Adrenergic Agonist Start: 12-24-2023 End: 11-24-2024 Albuterol Sulfate 90 mcg/actuation HFA aerosol inhaler Discontinued 1 NMA INHALATION EVERY 6-8 HOURS as needed for shortness of breath or wheezing 8.5 2 January 27, 2024 8:26am November 24, 2024 [...] 2020 8:00am ciprofloxacin 250 mg oral tablet (6 sources) Quinolone Antimicrobial Start: 12-17-2023 End: 01-23-2024 take 1 tablet by mouth once daily Ciprofloxacin Hcl 250 mg tablet Discontinued 250 mg PO daily 30 0 January 06, 2024 2:14pm January 23, 2024 12:41pm diclofenac sodium 0.01 mg/mg topical gel (3 sources) Nonsteroidal Anti-inflammatory Drug Start: 01-21-2024 End: 11-24-2024 Diclofenac Sodium (Voltaren Arthritis Pain) 1 % gel Discontinued 2 g TOPICAL EVERY 8 HOURS NEEDED as needed for pain 100 7 0 January 21, 2024 4:03pm November 24, 2024 [...] 2019 12:00am August 23, 2021 12:56pm Epoetin Jannie 75023 UNIT/ML (19 sources) Start: 05-23-2020 Epoetin Jannie 2 0000 UNIT/ML Given during dialysis, per [facility] Records. Injection *please review for potential _update for e-prescription and drug interaction check* May, Not-Taking Start: 05-23-2020 Start: 05-23-2020 Epoetin Jannie 2 0000 UNIT/ML Given during dialysis, per [facility] Records. Injection *please review for potential _update for e-prescription and drug interaction check* May, Active Start: 05-23-2020 3 ml insulin glargine 100 unt/ml pen injector (17 sources) Insulin Analog Start: 12-17-2023 End: 11-24-2024 [...] 2021 11:29am mupirocin 20 mg/ml topical cream (2 sources) RNA Synthetase Inhibitor Antibacterial Start: 12-17-2024 mupirocin 2% topical cream Apply 1 dina, Topical, qDay, 0 Refill(s), 113.6 Start Date: 12/17/24 Status: Ordered Repeat number: 1 Polyethylene Glycol 3350 17 gram/dose powder (3 sources) Start: 12-17-2023 End: 11-24-2024 Polyethylene Glycol 3350 [...] 12:50pm traMADol hydrochloride 50 mg oral tablet (3 sources) Opioid Agonist Start: 12-17-2023 End: 01-09-2024 take 1 tablet by mouth twice daily as needed Tramadol 50 mg tablet Discontinued 50 mg PO TWICE A DAY as needed December 17, 2023 12:00am January 09, 2024 1:38pm Problems Active Problems Problem Classification Problem Date Documented Da te Episodic/Chronic Abdominal pain (2 sources) Unspecified abdominal pain; Translations: [Unspecified abdominal pain] Onset: 5 Episodic Acute and unspecified renal failure (1 source) Acute kidney failure, unspecified; Translations: [Acute kidney failure, unspecified] Onset: 5 Episodic Administrative/social admission (6 sources) Other reduced mobility; Translations: [Impaired mobility and activities of daily living] 01-24-2024 Episodic Alcohol-related disorders (19 sources) Alcohol dependence; Translations: [Alcoh Dep Nec/nos-Unspec] Onset: 4 Chronic Asthma (19 sources) Mild intermittent asthma; Translations: [Mild intermittent asthma, uncomplicated] Onset: 2 Chronic Cardiac dysrhythmias (7 sources) Atrial fibrillation; Translations: [Unspecified atrial fibrillation] Onset: 5 12-08-2024 Chronic Cardiac dysrhythmias (4 sources) Tachycardia; Translations: [Tachycardia, unspecified] Onset: 5 [...] Chronic Coronary atherosclerosis and other heart disease (8 sources) Coronary arteriosclerosis; Translations: [Atherosclerotic heart disease of [place] coronary artery without angina pectoris] Onset: 5 12-08-2024 Chronic Coronary atherosclerosis and other heart disease (2 sources) Presence of aortocoronary bypass graft; Translations: [Presence of aortocoronary bypass graft] Onset: 5 Episodic Deficiency and other anemia (1 source) Anemia in chronic kidney disease; Translations: [Anemia in chronic kidney disease] Onset: 5 Chronic Diabetes mellitus with complications (20 sources) 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; Translations: [Type 2 diabetes mellitus with diabetic neuropathic arthropathy] Onset: 2 Resolved: 2 Chronic Diabetes mellitus without complication (8 sources) Type 2 diabetes mellitus without complications; Translations: [Diabetes mellitus] Onset: 3 12-08-2024 Chronic Disorders of lipid metabolism (20 sources) Hyperlipidemia; Translations: [Hyperlipidemia, unspecified] Onset: 2 12-08-2024 Chronic Esophageal disorders (20 sources) Gastroesophageal reflux disease without esophagitis; Translations: [Gastro-esophageal reflux disease without esophagitis] Onset: 4 Chronic Essential hypertension (20 sources) Essential hypertension; Translations: [Essential (primary) hypertension] Onset: 2 Resolved: 2 Chronic Fluid and electrolyte disorders (2 sources) Acute hyponatremia; Translations: [Hypo-osmolality and hyponatremia] 12-30-2024 Episodic Hyperplasia of prostate (1 source) Benign prostatic hyperplasia without lower urinary tract symptoms; Translations: [Benign prostatic hyperplasia without lower urinary tract symptoms] Onset: 5 Chronic Hypertension with complications and secondary hypertension (3 sources) Hypertensive heart and chronic kidney disease [...] Resolved: 2 Episodic Open wounds of extremities (3 sources) Amputated below knee; Translations: [Complete traumatic amputation at level between knee and ankle, right lower leg, initial encounter] 12-17-2023 Chronic Other and ill-defined heart disease (6 sources) Left ventricular systolic dysfunction; Translations: [Other ill-defined heart diseases] 12-08-2024 Chronic Other and ill-defined heart disease (1 source) Other ill-defined heart diseases; Translations: [Other ill-defined heart diseases] Onset: 5 Chronic Other bone disease and musculoskeletal deformities (6 sources) History of amputation of left and [...] knee] Onset: 5 Chronic Other gastrointestinal disorders (2 sources) Abdominal mass; Translations: [Other specified diseases of intestine] 12-30-2024 Episodic Other gastrointestinal disorders (1 source) Other intra-abdominal and pelvic swelling, mass and lump; Translations: [Other intra-abdominal and pelvic swelling, mass and lump] Onset: 5 Episodic Other gastrointestinal disorders (1 source) Other ascites; [...] right shoulder] Episodic Other non-traumatic joint disorders (8 sources) Pain in left shoulder; Translations: [Left shoulder pain] Onset: 5 12-03-2024 Episodic Other nutritional; endocrine; and metabolic disorders (19 sources) Hypomagnesemia; Translations: [Hypomagnesemia] Onset: 0 Chronic Other nutritional; endocrine; and metabolic disorders (1 source) Obesity, unspecified; Translations: [Obesity, unspecified] Onset: 5 Chronic Other screening for suspected conditions (not mental disorders or infectious disease) (1 source) Abnormal electrocardiogram [ECG] [EKG]; Translations: [Abnormal electrocardiogram [ECG] [EKG]] Onset: 5 Episodic Other upper respiratory disease (19 sources) Allergic rhinitis; Translations: [Allergic rhinitis, unspecified] Onset: 8 Chronic Pneumonia (except that caused by tuberculosis or sexually transmitted disease) (20 sources) Bacterial pneumonia; Translations: [Unspecified bacterial pneumonia] Onset: 9 12-30-2024 Episodic Residual codes; unclassified (3 sources) Central sleep apnea syndrome; Translations: [Primary central sleep apnea] 01-22-2024 Chronic Residual codes; unclassified (3 sources) Dependence on wheelchair; Translations: [Dependence on wheelchair] 01-24-2024 Chronic Residual codes; unclassified (1 source) Primary central sleep apnea; Translations: [Primary central sleep apnea] Onset: 4 Chronic Residual codes; unclassified (2 sources) Altered mental status; Translations: [Altered mental status, unspecified] 12-30-2024 Episodic Skin and subcutaneous tissue infections (20 sources) [...] Classification Problem Date Documented Da te Episodic/Chronic Conditions associated with dizziness or vertigo (19 [...] (generalized) Onset: 10-19-2021 Resolved: 10-19-2021 Episodic Other gastrointestinal disorders (19 sources) Diarrhea; Translations: [Diarrhea, unspecified] Onset: 12-05-2017 Episodic Other gastrointestinal disorders (19 sources) Constipation; Translations: [Other constipation] Onset: 08-12-2019 Episodic Other lower respiratory disease (19 sources) [...] joints of right foot] Onset: 03-22-2016 Episodic Residual codes; unclassified (19 sources) Sleep [...] Test Name Value Interpretation Reference Range Facility Echo Complete W/ Contraston 01-12-2025 Echo Complete W/ Contrast [facility] [address] [place] [address] Echo Complete W/ Contrast 01/12/25 0511 MR#: [id number] Acct: [id number] Name: AGUSTO MONSALVE Rep #: [id number] : 1975 49 From: Tiburcio Osborne MD Attending Dr: Dr. Tiburcio Osborne MD Status: DEP CLI Ordering Dr: Tiburcio Osborne MD Date: 01/12/25 Location: [facility] Sex: M C Admitted: Reason For Study Reason For Study: CDA/ASHD Procedure This was a 2D Doppler, Color Flow transthoracic echocardiogram. Contrast injection was performed. The study was technically difficult. Exam performed in department. Left Ventricle Normal LV size. Mild LV concentric hypertrophy. Generalized LV hypokinesis with dyssynchronous wall motion with underlying bundle branch block. Estimated LVEF 40%. Stage I diastolic dysfunction. Right Ventricle Normal right ventricle. Atria The left and right atria are normal. Mitral Valve Mild (1+) mitral valve insufficiency. Tricuspid Valve Mild tricuspid valve insufficiency. Right ventricular systolic pressure estimated to be 47 mmHg. Aortic Valve Trisinus/trileaflet aortic valve. Pulmonic Valve The pulmonic valve is not well visualized. Trivial pulmonic valve insufficiency. Great Vessels Normal sized aortic root. Pericardium/Pleural No pericardial effusion. Medication Diluted definity 2ml given slow IV push to enhance endocardial definition. MMode/2D Measurements Calculations LVIDd: 6.3 cm IVSd: 1.3 cm Ao root diam: 3.3 cm LVIDs: 5.2 cm LVPWd: 1.2 cm LA dimension: 4.1 cm RVDd: 4.0 cm FS: 17.8 % LAV(MOD-bp): 52.4 ml LVAd ap4: 37.1 cm2 SV(MOD-sp4): 54.7 ml LAV(MOD-bp) Indexed: 26.3 ml/m2 LVLd ap4: 8.7 cm SI(MOD-sp4): 27.5 ml/m2 LAV(MOD-sp2): 50.3 ml EDV(MOD-sp4): 131.8 ml LAV(MOD-sp4): 48.6 ml EDV(sp4-el): 133.6 ml LVAs ap4: 26.5 cm2 LVLs ap4: 7.6 cm ESV(MOD-sp4): 77.1 ml ESV(sp4-el): 77.7 ml EF(MOD-sp4): 41.5 % EF(sp4-el): 41.8 % SV(sp4-el): 55.8 ml LA A4 area: 18.6 cm2 LA dimension(2D): 4.0 cm RA A4 area: 13.4 cm2 TAPSE: 1.9 cm Time Measurements MV dec time: 0.18 sec Doppler Measurements Calculations MV E max dominique: 92.8 cm/sec Lat Peak E' Dominique: 12.6 cm/sec Med Peak E' Domiinque: 5.7 cm/sec MV A max dominique: 49.8 cm/sec E/E' lat: 7.4 E/E' med: 16.1 MV E/A: 1.9 MV dec slope: 537.2 cm/sec2 Ao V2 max: 168.7 cm/sec LV V1 max: 109.8 cm/sec Ao max P.4 mmHg LV V1 max P.8 mmHg Ao V2 mean: 128.1 cm/sec Ao mean P.1 mmHg Ao V2 VTI: 36.5 cm PA V2 max: 96.6 cm/sec PI end-d dominique: 114.3 cm/sec TR max dominique: 282.7 cm/sec TR max P.0 mmHg ECHO/Echo Complete W/ Contrast Interpretation Summary Normal LV size. Mild LV concentric hypertrophy. Generalized LV hypokinesis with dyssynchronous wall motion with underlying bundle branch block. Estimated LVEF 40%. Stage I diastolic dysfunction. Mild (1+) mitral valve insufficiency. Mild tricuspid valve insufficiency. Right ventricular systolic pressure estimated to be 47 mmHg. The study was technically difficult. Ordering Physician: Tiburcio Osborne Referring Physician: Kayleen Pederson Performed By: Mohamud Bergeron, RDSAEID, RVT 01/19/25922 Date Tiburcio Osborne MD CC: Kayleen Pederson MD; Dr. Tiburcio Osborne MD Date Dictated: 01/12/25510 Date Transcribed: 01/19/25922 Clinical Training Coordinator: Signed Normal [facility] Final Surgical Pathology Rep rafy 01-05-2025 Final Surgical Pathology Report . Pathology Reports Accession: Collected Date/Time: Received Date/Time: Pathologist: [id number] 01/01/2025 14:30 EDT 01/04/2025 09:03 EDT NICK GARCIA MD Final Surgical Pathology Report DIAGNOSIS: ABDOMEN/MESENTERIC MASS, IMAGE GUIDED CORE BIOPSY: - ORGANIZING HEMATOMA - NEGATIVE FOR MALIGNANCY Comment: Sections show degenerated blood clot, fibrosis and hemosiderin deposition. No histologic evidence of any neoplasm. Correlation with clinical and radiological findings recommended. If this biopsy is resources representative of the lesion, the findings would be consistent with an old hematoma. CLINICAL INFORMATION: MASS Procedure: IMAGE GUIDED ABDOMINAL BIOPSY SPECIMEN: A ABDOMEN/ MESENTERIC GROSS DESCRIPTION: All parts labelled with patient name and [id number] Received in formalin labeled mesenteric are 5 harp-pink to brown cores and fragments ranging in size from less than 0.1 to 1.0 cm. Smallest fragments may not survive processing. TS-1 Darcy Lott, Grossing Credit Collector/ Dr. Ricardo Jordan, Pathologist Performed by Darcy Lott MICROSCOPIC DESCRIPTION: The microscopic examination is performed, except in the case of Gross Only. Verified by Pathology Report verified by [facility] NICK GARCIA Sign out Date: 01/05/2025 14:54 Performing Lab: [facility], [address] [place] [address] Pathology Dept Disclaimer If ancillary studies were utilized, the following Laboratory Developed Test (LDT) disclaimer will apply: Under CLIA requirements, [facility] Pathology Laboratory is qualified to perform high complexity testing. For all ancillary stains, positive and negative controls stain appropriately. Performance characteristics of immunohistochemical and chromogenic in-situ hybridization tests have been determined by [facility]ology Laboratory. These tests are used for clinical purposes, They should not be regarded as investigational or for research. Normal [facility] Non-Staffing Coordinator Cytology Reporton Non-Staffing Coordinator Cytology Report . Pathology Reports Accession: Collected Date/Time: Received Date/Time: Pathologist: [id number] 01/01/2025 14:22 EDT 01/04/2025 08:09 EDT RICARDO JORDAN MD Non-Staffing Coordinator Cytology Report CLINICAL INFORMATION: large cystic abdominal mass DIAGNOSTIC CATEGORY: NON DIAGNOSTIC. Acellular specimen. See biopsy report [id number]. SPECIMEN: Cystic abdominal mass FNA GROSS DESCRIPTION: # of Blocks: 1 # of Monolayers: 1 Volume (ml) 20 Color: fresh brown Verified by Pathology Report verified by [facility] Screened by: LOU DW Electronically signed by RICARDO JORDAN Sign-Out Date: 01/05/2025 14:10 Performing Lab: [facility], [address] [place] [address] Pathology Dept Disclaimer If ancillary studies were utilized, the following Laboratory Developed Test (LDT) disclaimer will apply: Under CLIA requirements, [facility] Pathology Laboratory is qualified to perform high complexity testing. For all ancillary stains, positive and negative controls stain appropriately. Performance characteristics of immunohistochemical and chromogenic in-situ hybridization tests have been determined by [facility]. These tests are used for clinical purposes, They should not be regarded as investigational or for research. Normal [facility] Culture, Blood (WB)on 2024 CUB Blood cultures x2, from two different sites No growth in 5 days. Normal [facility] Comment on above: Performed By: #### L 100.0100, L500.4050 #### [facility] [address] [place], [place], [address] CUB Blood cultures x2, from two different sites No growth in 5 days. Normal [facility] Comment on above: Performed By: #### L 100.0100, L500.4050 #### [facility] [address] [place], [address] IR BIOPSY ABDOMENon 01-04-20 25 IR BIOPSY ABDOMEN ORIGINAL HISTORY: ORDERING SYSTEM PROVIDED HISTORY: Reason for Exam: Mesenteric mass TECHNIQUE: This exam was performed according to our departmental dose-optimization program which includes automated exposure control, adjustment of the mA and/or kVp according to patient size and/or use of iterative reconstruction technique where applicable. PROCEDURE: 1. CT guided core biopsy, abdominal mass PIECE GOODS PACKER: Dr. Griffin PHYSICAL THERAPIST ASSISTANT: None MATERIALS: 18G core biopsy device ANESTHESIA: Moderate conscious sedation administered. Patient was monitored throughout the procedure by nurse. INTRASERVICE TIME (min): 22 SKIN ENTRY SITE: Left abdomen periumbilical TOUCHPREP: No # CORES: 8 Aspirate: 40 mL dark brown cloudy FINDINGS: PRE: 21.1 x 17.0 x 20.9 cm hypodense fluid attenuation mass is noted in the mid abdomen from the L1-L2 level down to the level of the acetabulum. IV contrast was administered as the patient is on chronic hemodialysis for the last 6 years per the patient. IV contrast does not demonstrate any soft tissue enhancement within the lesion. POST: No hemorrhage noted. The procedure, risks, limitations, and alternatives were discussed. All questions answered. Written informed consent obtained. Percutaneous site was sterilely prepped and draped. Time out performed. After administering local anesthesia, coaxial needle advanced to the lesion under CT guidance. Core samples from within the lesion yielded no samples. Therefore 40 mL of aspiration of dark brown fluid was performed. It was sent for culture and cytology. The needle was pulled back to the intra-abdominal fat just external to the mass. Core samples obtained of the cystic mass wall and submitted to pathology. [place] removed. Sterile dressing placed. COMPLICATIONS: None EBL: Minimal CONDITION: Stable, unchanged IMPRESSION: 1. Successful CT guided core biopsy of the wall of the cystic mass. No definite hand sing internal soft tissue noted after IV contrast administration. Aspiration sent for culture and cytology. Interpreted by: Fabby Griffin MD Preliminary Report By: Fabby Griffin MD Electronically signed By Fabby Griffin MD Dictated Date: 01/03/2025 4:37:17 PM Prelim Date: 01/03/2025 4:42:27 PM Sign Date: 01/03/2025 4:42:27 PM Ordering Provider: BENNY Blair [facility] .Auto Diffon 01-01-2025 Basophil, Absolute 0.1 10 3/mcL Normal 0.0-0.3 [facility] Comment on above: Performed By: #### G FR, BMP #### [facility] [address] [place] [address] Basophils/100 WBC (Bld) 1.1 % Normal 0.0-2.5 [facility] Comment on above: Performed By: #### G FR, BMP #### [address] [address] Eosinophil, Absolute 0.1 10 3/mcL Normal 0.0-0.7 [facility] Comment on above: Performed By: #### G FR, BMP #### [address] [address] Eosinophils/100 WBC (Bld) 1.3 % Normal 0.0-6.0 [facility] Comment on above: Performed By: #### G FR, BMP #### [address] [address] Lymphocyte, Absolute 1.1 10 3/mcL Normal 0.9-4.3 [facility] Comment on above: Performed By: #### G FR, BMP #### [address] [address] Lymphocytes/100 WBC (Bld) 12.9 % Low 20.0-40.0 [facility] Comment on above: Performed By: #### G FR, BMP #### [address] [address] Monocyte, Absolute 0.5 10 3/mcL Normal 0.1-1.4 [facility] Comment on above: Performed By: #### G FR, BMP #### [address] [address] Monocytes/100 WBC (Bld) 6.0 % Normal 2.0-13.0 [facility] Comment on above: Performed By: #### G FR, BMP #### [address] [address] Neutrophils/100 WBC (Bld) 78.7 % High 50.0-75.0 [facility] Comment on above: Performed By: #### G FR, BMP #### [address] [address] .GFRon 01-01-2025 Estimated Glomerular Filtration Rate 21 ml/min/1.73sqm Normal [facility] Comment on above: Result Comment: Stages of Chronic Kidney Disease (CKD) Stage Description eGFR(ml/min/1.73 sq.m.) CKD 1 Normal kidney function or >=90 normal kindney function with possible kidney damage (ex. Proteinuria) CKD 2 Kidney damage with mild loss 60-89 of kidney function CKD 3a Mild to moderate loss of kidney 45-59 function CKD 3b Moderate to severe loss of 30-44 of kindey function CKD 4 Severe loss of kidney function 15-29 CKD 5 Kidney failure <15 Note: (go live 2024) the eGFR calculation was updated to the 2020 CKD-EPI creatinine equation without a race factor to calculate the eGFR results. Performed By: #### G , BMP #### [address] [address] .NEUABSon 01-01-2025 Neutrophil, Absolute 7.0 10 3/mcL Normal 2.3-8.1 [facility] Comment on above: Performed By: #### G , BMP #### [address] [address] BMPon 01-01-2025 BUN/Creatinine Ratio 6.7 ratio Low 10.0-22.0 [facility] Comment on above: Performed By: #### G , BMP #### [address] [address] Calcium [Mass/Vol] 9.1 mg/dL Normal 8.7-10.4 [facility] Comment on above: Performed By: #### G , BMP #### [address] [address] Chloride [Moles/Vol] 98 mmol/L Normal 98-110 [facility] Comment on above: Performed By: #### G , BMP #### [address] [address] CO2 [Moles/Vol] 21 mmol/L Low 22-32 [facility] Comment on above: Performed By: #### G FR, BMP #### [address] [address] Creatinine [Mass/Vol] 3.44 mg/dL High 0.60-1.40 [facility] Comment on above: Result Comment: Test ing performed on Pianpian analyzer using enzymatic creatinine methodology. Performed By: #### G FR, BMP #### [address] [address] Electrolyte Balance 17.0 mEq/L High 4.0-15.0 [facility] Comment on above: Performed By: #### G FR, BMP #### [address] [address] Glucose [Mass/Vol] 74 mg/dL Normal 70-110 [facility] Comment on above: Performed By: #### G FR, BMP #### [place] [id number] Potassium [Moles/Vol] 4.8 mmol/L Normal 3.5-5.0 [facility] Comment on above: Result Comment: Spec imen slightly hemolyzed. Performed By: #### Silvina FR, BMP #### [place] [id number] Sodium [Moles/Vol] 136 mmol/L Normal 136-145 [facility] Comment on above: Performed By: #### Silvina FR, BMP #### [place] [id number] Urea nitrogen [Mass/Vol] 23.0 mg/dL High 8.0-22.0 [facility] Comment on above: Performed By: #### Silvina FR, BMP #### [place] [id number] CBCon 01-01-2025 Erythrocyte distribution width (RBC) [Ratio] 17.6 % High 11.5-15.5 [facility] Comment on above: Order Comment: clott - 01/01/2025 05:02:34 EDT Performed By: #### G FR, BMP #### [place] [id number] Hematocrit (Bld) [Volume fraction] 28.2 % Low 40.0-52.0 [facility] Comment on above: Order Comment: clott - 01/01/2025 05:02:34 EDT Performed By: #### Silvina FR, BMP #### [place] [id number] Hgb 9.3 G/dL Low 13.0-17.5 [facility] Comment on above: Order Comment: clott ed - 01/01/2025 05:02:34 EDT Performed By: #### G FR, BMP #### [place] [id number] MCH (RBC) [Entitic mass] 29.1 pg Normal 27.0-33.0 [facility] Comment on above: Order Comment: clott ed - 01/01/2025 05:02:34 EDT Performed By: #### G FR, BMP #### [place] [address] MCHC 33.0 G/dL Normal 32.0-36.0 [facility] Comment on above: Order Comment: clott ed - 01/01/2025 05:02:34 EDT Performed By: #### Silvina FR, BMP #### [place] [id number] MCV (RBC) [Entitic vol] 88.2 fL Normal 81.0-100.0 [facility] Comment on above: Order Comment: clott ed - 01/01/2025 05:02:34 EDT Performed By: #### G FR, BMP #### [place] [id number] Platelet 234 10 3/mcL Normal 150-450 [facility] Comment on above: Order Comment: clott ed - 01/01/2025 05:02:34 EDT Performed By: #### G FR, BMP #### [place] [id number] Platelet mean volume (Bld) [Entitic vol] 6.9 fL Normal 6.4-10.5 [facility] Comment on above: Order Comment: clott ed - 01/01/2025 05:02:34 EDT Performed By: #### G FR, BMP #### [place] [id number] RBC 3.19 10 6/mcL Low 4.50-6.00 [facility] Comment on above: Order Comment: clott ed - 01/01/2025 05:02:34 EDT Performed By: #### G FR, BMP #### [facility] [address] [place] [address] WBC 8.9 10 3/mcL Normal 4.5-10.8 [facility] Comment on above: Order Comment: clott ed - 01/01/2025 05:02:34 EDT Performed By: #### G , BMP #### [facility] [address] [place] [address] LABORATORYOrdered By: Petrona Moreira on 01-01-2025 Blood Glucose Interventions Retest (01/01/25 9:34 PM) [facility] Work Phone: Glucose [Mass/Vol] 85 mg/dL Normal 70 - 110 mg/dL [facility] Work Phone: Glucose [Mass/Vol] 78 mg/dL Normal 70 - 110 mg/dL [facility] Work Phone: Blood Glucose Testing Reason Symptoms of hypoglycemia (01/01/25 9:15 PM) [facility] Work Phone: Glucose [Mass/Vol] 66 mg/dL Low 70 - 110 mg/dL [facility] Work Phone: Blood Glucose Testing Reason Symptoms of hypoglycemia (01/01/25 8:00 PM) [facility] Work Phone: LABORATORYOrdered By: Tamanna huizar on 01-01-2025 Blood Glucose Testing Reason Routine (01/01/25 11:01 AM) [facility] Work Phone: LABORATORYOrdered By: SYSTEM SYSTEM on 01-01-2025 Basophils (Bld) [#/Vol] 0.1 103/mcL Normal 0.0 - 0.3 10^3/mcL [facility] Workflow SS Basophils/100 WBC (Bld) 1.1 % Normal 0.0 - 2.5 % [facility] Workflow SS Eosinophils (Bld) [#/Vol] 0.1 103/mcL Normal 0.0 - 0.7 10^3/mcL [facility] Workflow SS Eosinophils/100 WBC (Bld) 1.3 % Normal 0.0 - 6.0 % [facility] Workflow SS Erythrocyte distribution width (RBC) [Ratio] 17.6 % High 11.5 - 15.5 % [facility] Workflow SS Hematocrit (Bld) [Volume fraction] 28.2 % Low 40.0 - 52.0 % [facility] Workflow SS Hemoglobin (Bld) [Mass/Vol] 9.3 G/dL Low 13.0 - 17.5 G/dL [facility] Workflow SS Lymphocytes (Bld) [#/Vol] 1.1 103/mcL Normal 0.9 - 4.3 10^3/mcL [facility] Workflow SS Lymphocytes/100 WBC (Bld) 12.9 % Low 20.0 - 40.0 % [facility] Workflow SS MCH (RBC) [Entitic mass] 29.1 pg Normal 27.0 - 33.0 pg [facility] Workflow SS MCHC 33.0 G/dL Normal 32.0 - 36.0 G/dL [facility] Workflow SS MCV (RBC) [Entitic vol] 88.2 fL Normal 81.0 - 100.0 fL [facility] Workflow SS Monocytes (Bld) [#/Vol] 0.5 103/mcL Normal 0.1 - 1.4 10^3/mcL [facility] Workflow SS Monocytes/100 WBC (Bld) 6.0 % Normal 2.0 - 13.0 % [facility] Workflow SS Neutrophils (Bld) [#/Vol] 7.0 103/mcL Normal 2.3 - 8.1 10^3/mcL [facility] Workflow SS Neutrophils/100 WBC (Bld) 78.7 % High 50.0 - 75.0 % [facility] Workflow SS Platelet mean volume (Bld) [Entitic vol] 6.9 fL Normal 6.4 - 10.5 fL [facility] Workflow SS Platelets (Bld) [#/Vol] 234 103/mcL Normal 150 - 450 10^3/mcL [facility] Workflow SS RBC (Bld) [#/Vol] 3.19 106/mcL Low 4.50 - 6.0 0 10^6/mcL [facility] Workflow SS WBC (Bld) [#/Vol] 8.9 103/mcL Normal 4.5 - 10.8 10^3/mcL [facility] Workflow SS Calcium [Mass/Vol] 9.1 mg/dL Normal 8.7 - 10. 4 mg/dL ADM SS Chloride [Moles/Vol] 98 mmol/L Normal 98 - 11 0 mEq/L ADM SS CO2 [Moles/Vol] 21 mmol/L Low 22 - 32 mEq/L ADM SS Creatinine [Mass/Vol] 3.44 mg/dL High 0.60 - 1.40 mg/dL ADM Comment on above: Interpretive Data: T esting performed on Pianpian analyzer using enzymatic creatinine methodology. Electrolyte Balance 17.0 mEq/L High 4.0 - 15 .0 mEq/L ADM SS Estimated Glomerular Filtration Rate 21 ml/min/1.73sqm Invalid Interpretation Code Chemistry S Comment on above: Interpretive Data: Stages of Chronic Kidney Disease (CKD) Stage Description eGFR(ml/min/1.73 sq.m.) CKD 1 Normal kidney function or >=90 normal kindney function with possible kidney damage (ex. Proteinuria) CKD 2 Kidney damage with mild loss 60-89 of kidney function CKD 3a Mild to moderate loss of kidney 45-59 function CKD 3b Moderate to severe loss of 30-44 of kindey function CKD 4 Severe loss of kidney function 15-29 CKD 5 Kidney failure <15 Note: (go live 2024) the eGFR calculation was updated to the 2020 CKD-EPI creatinine equation without a race factor to calculate the eGFR results. Glucose [Mass/Vol] 74 mg/dL Normal 70 - 110 mg/dL [facility] Potassium [Moles/Vol] 4.8 mmol/L Normal 3.5 - 5.0 mEq/L [facility] Comment on above: Result Comment: Spec imen slightly hemolyzed. PT Coag (PPP) [Time] 11.4 s Normal 9.0 - 1 4.4 seconds [facility] SS Comment on above: Interpretive Data: E ffective 01/27/08, Protime results may be affected by some antibiotics (i.e. Ciprofloxacin, Azithromycin, Bactrim) which may potentiate the action of oral anticoagulants, with further increases in Protime/INR. PT International Ratio 1.0 ratio Invalid Interpretation Code [facility] Comment on above: Interpretive Data: T he [employer] (CHEST, 1992, 102:312S-25S) recommended therapeutic range for oral anticoagulant therapy is: LOW RISK: Prophylaxis of venous thrombosis INR: 2.0-3.0 Treatment of pulmonary embolism 2.0-3.0 Prevention of systemic embolism 2.0-3.0 HIGH RISK: Mechanical prosthetic valves 2.5-3.5 Sodium [Moles/Vol] 136 mmol/L Normal 136 - 145 mEq/L [facility] Urea nitrogen [Mass/Vol] 23.0 mg/dL High 8.0 - 22.0 mg/dL [facility] Urea nitrogen/Creatinine [Mass ratio] 6.7 ratio Low 10.0 - 22.0 ratio [facility] MYCOon 01-01-2025 Mycoplasma IgG Positive Normal [facility] Comment on above: Result Comment: INTE RPRETATION OF MYCOPLASMA IgG BY EIA: Negative: No detectable M. pneumoniae IgG antibody. Positive: Mycoplasma pneumoniae IgG antibody Detected. Equivocal: Equivocal for IgG antibodies to Mycoplasma pneumoniae. Suggest repeat testing in 10-14 days. Performed By: #### G , BMP #### [facility] [address] [place] [id number] No Panel InformationOrdered By: Petrona Moreira on 01-01-2025 Blood Glucose Interventions Administered food/juice, Retest (01/01/25 9:22 PM) [facility] Work Phone: Blood Glucose Interventions Administered food/juice, Retest (01/01/25 9:15 PM) [facility] Work Phone: No Panel Informationon 01-01 Culture Body Fluid Culture has been received in lab and is no growth to date. Routine cultures are held for [address] [facility] Work Phone: GS Sedimented No organisms seen. [facility] Work Phone: PROon 01-01-2025 INR Coag (PPP) [Relative time] 1.0 {INR} Normal [facility] Comment on above: Result Comment: [employer] (CHEST, 1992, 102:312S-25S) recommended therapeutic range for oral anticoagulant therapy is: LOW RISK: Prophylaxis of venous thrombosis INR: 2.0-3.0 Treatment of pulmonary embolism 2.0-3.0 Prevention of systemic embolism 2.0-3.0 HIGH RISK: Mechanical prosthetic valves 2.5-3.5 Performed By: #### G FR, BMP #### [facility] [address] [place] [address] PT Coag (PPP) [Time] 11.4 s Normal 9.0-14.4 [facility] Comment on above: Result Comment: Effe ctive 01/27/08, Protime results may be affected by some antibiotics (i.e. Ciprofloxacin, Azithromycin, Bactrim) which may potentiate the action of oral anticoagulants, with further increases in Protime/INR. Performed By: #### G FR, BMP #### [address] [address] .Auto Diffon 12-31-2024 Basophil, Absolute 0.1 10 3/mcL Normal 0.0-0.3 [facility] Comment on above: Performed By: #### G FR, BMP #### [address] [address] Basophils/100 WBC (Bld) 0.9 % Normal 0.0-2.5 [facility] Comment on above: Performed By: #### G FR, BMP #### [address] [address] Eosinophil, Absolute 0.1 10 3/mcL Normal 0.0-0.7 [facility] Comment on above: Performed By: #### G FR, BMP #### [address] [address] Eosinophils/100 WBC (Bld) 0.7 % Normal 0.0-6.0 [facility] Comment on above: Performed By: #### G FR, BMP #### [address] [address] Lymphocyte, Absolute 1.0 10 3/mcL Normal 0.9-4.3 [facility] Comment on above: Performed By: #### G FR, BMP #### [address] [address] Lymphocytes/100 WBC (Bld) 6.7 % Low 20.0-40.0 [facility] Comment on above: Performed By: #### G FR, BMP #### [address] [address] Monocyte, Absolute 0.7 10 3/mcL Normal 0.1-1.4 [facility] Comment on above: Performed By: #### G FR, BMP #### [address] [address] Monocytes/100 WBC (Bld) 4.5 % Normal 2.0-13.0 [facility] Comment on above: Performed By: #### Silvina , BMP #### [address] [address] Neutrophils/100 WBC (Bld) 87.2 % High 50.0-75.0 [facility] Comment on above: Performed By: #### Silvina QUINTANA, BMP #### [address] [address] .GFRon 12-31-2024 Estimated Glomerular Filtration Rate 12 ml/min/1.73sqm Normal [facility] Comment on above: Result Comment: Stages of Chronic Kidney Disease (CKD) Stage Description eGFR(ml/min/1.73 sq.m.) CKD 1 Normal kidney function or >=90 normal kindney function with possible kidney damage (ex. Proteinuria) CKD 2 Kidney damage with mild loss 60-89 of kidney function CKD 3a Mild to moderate loss of kidney 45-59 function CKD 3b Moderate to severe loss of 30-44 of kindey function CKD 4 Severe loss of kidney function 15-29 CKD 5 Kidney failure <15 Note: (go live 2024) the eGFR calculation was updated to the 2020 CKD-EPI creatinine equation without a race factor to calculate the eGFR results. Performed By: #### Silvina , BMP #### [address] [address] .NEUABSon 12-31-2024 Neutrophil, Absolute 12.7 10 3/mcL High 2.3-8.1 [facility] Comment on above: Performed By: #### Silvina QUINTANA, BMP #### [address] [address] [facility] BUN/Creatinine Ratio 8.9 ratio Low 10.0-22.0 [facility] Comment on above: Performed By: #### Silvina , BMP #### [address] [address] Calcium [Mass/Vol] 8.6 mg/dL Low 8.7-10.4 [facility] Comment on above: Performed By: #### Silvina FR, BMP #### [address] [address] Chloride [Moles/Vol] 90 mmol/L Low 98-110 [facility] Comment on above: Performed By: #### Silvina QUINTANA, BMP #### [address] [address] CO2 [Moles/Vol] 24 mmol/L Normal 22-32 [facility] Comment on above: Performed By: #### Silvina QUINTANA, BMP #### [address] [address] Creatinine [Mass/Vol] 5.30 mg/dL High 0.60-1.40 [facility] Comment on above: Result Comment: Test ing performed on Pianpian analyzer using enzymatic creatinine methodology. Performed By: #### Silvina QUINTANA, BMP #### [address] [address] Electrolyte Balance 14.0 mEq/L Normal 4.0-15.0 [facility] Comment on above: Performed By: #### Silvina QUINTANA, BMP #### [address] [address] Glucose [Mass/Vol] 92 mg/dL Normal 70-110 [facility] Comment on above: Performed By: #### Silvina QUINTANA, BMP #### [address] [address] Potassium [Moles/Vol] 5.6 mmol/L High 3.5-5.0 [facility] Comment on above: Result Comment: Spec imen slightly hemolyzed. Performed By: #### Silvina QUINTANA, BMP #### [address] [address] Sodium [Moles/Vol] 128 mmol/L Low 136-145 [facility] Comment on above: Performed By: #### Silvina FR, BMP #### [address] [address] Urea nitrogen [Mass/Vol] 47.0 mg/dL High 8.0-22.0 [facility] Comment on above: Performed By: #### Silvina QUINTANA, BMP #### [address] [address] CBCon 12-31-2024 Erythrocyte distribution width (RBC) [Ratio] 17.6 % High 11.5-15.5 [facility] Comment on above: Performed By: #### G , BMP #### [place] [address] Hematocrit (Bld) [Volume fraction] 29.6 % Low 40.0-52.0 [facility] Comment on above: Performed By: #### G FR, BMP #### [place] [address] Hgb 9.8 G/dL Low 13.0-17.5 [facility] Comment on above: Performed By: #### G , BMP #### [place] [address] MCH (RBC) [Entitic mass] 29.1 pg Normal 27.0-33.0 [facility] Comment on above: Performed By: #### G , BMP #### [place] [address] MCHC 33.1 G/dL Normal 32.0-36.0 [facility] Comment on above: Performed By: #### G , BMP #### [place] [address] MCV (RBC) [Entitic vol] 87.8 fL Normal 81.0-100.0 [facility] Comment on above: Performed By: #### G , BMP #### [place] [address] Platelet 220 10 3/mcL Normal 150-450 [facility] Comment on above: Performed By: #### G FR, BMP #### [place] [address] Platelet mean volume (Bld) [Entitic vol] 7.1 fL Normal 6.4-10.5 [facility] Comment on above: Performed By: #### G FR, BMP #### [place] [address] RBC 3.38 10 6/mcL Low 4.50-6.00 [facility] Comment on above: Performed By: #### G FR, BMP #### [address] [address] WBC 14.6 10 3/mcL High 4.5-10.8 [facility] Comment on above: Performed By: #### G JENNIFER QUINTANA #### [address] [address] LABORATORYOrdered By: Ty Cancino on 12-31-2024 LDose Vancomycin: (random) See eMAR (12/31/24 10:29 PM) Normal Chemistry S LABORATORYOrdered By: SYSTEM SYSTEM on 12-31-2024 Vancomycin [Mass/Vol] 30.6 mcg/mL Invalid Interpretation Code ADM SS Basophils (Bld) [#/Vol] 0.1 103/mcL Normal 0.0 - 0.3 10^3/mcL AH Workflow SS Basophils/100 WBC (Bld) 0.9 % Normal 0.0 - 2.5 % AH Workflow SS Calcium [Mass/Vol] 8.6 mg/dL Low 8.7 - 10. 4 mg/dL ADM SS Chloride [Moles/Vol] 90 mmol/L Low 98 - 11 0 mEq/L ADM SS CO2 [Moles/Vol] 24 mmol/L Normal 22 - 32 mEq/L ADM SS Creatinine [Mass/Vol] 5.30 mg/dL High 0.60 - 1.40 mg/dL ADM SS Comment on above: Interpretive Data: T esting performed on Pianpian analyzer using enzymatic creatinine methodology. Electrolyte Balance 14.0 mEq/L Normal 4.0 - 15 .0 mEq/L ADM SS Eosinophils (Bld) [#/Vol] 0.1 103/mcL Normal 0.0 - 0.7 10^3/mcL Workflow SS Eosinophils/100 WBC (Bld) 0.7 % Normal 0.0 - 6.0 % AH Workflow SS Erythrocyte distribution width (RBC) [Ratio] 17.6 % High 11.5 - 15.5 % AH Workflow SS Estimated Glomerular Filtration Rate 12 ml/min/1.73sqm Invalid Interpretation Code Chemistry S Comment on above: Interpretive Data: Stages of Chronic Kidney Disease (CKD) Stage Description eGFR(ml/min/1.73 sq.m.) CKD 1 Normal kidney function or >=90 normal kindney function with possible kidney damage (ex. Proteinuria) CKD 2 Kidney damage with mild loss 60-89 of kidney function CKD 3a Mild to moderate loss of kidney 45-59 function CKD 3b Moderate to severe loss of 30-44 of kindey function CKD 4 Severe loss of kidney function 15-29 CKD 5 Kidney failure <15 Note: (go live 2024) the eGFR calculation was updated to the 2020 CKD-EPI creatinine equation without a race factor to calculate the eGFR results. Glucose [Mass/Vol] 92 mg/dL Normal 70 - 110 mg/dL AH ADM SS Hematocrit (Bld) [Volume fraction] 29.6 % Low 40.0 - 52.0 % AH Workflow SS Hemoglobin (Bld) [Mass/Vol] 9.8 G/dL Low 13.0 - 17.5 G/dL AH Workflow SS Lymphocytes (Bld) [#/Vol] 1.0 103/mcL Normal 0.9 - 4.3 10^3/mcL AH Workflow SS Lymphocytes/100 WBC (Bld) 6.7 % Low 20.0 - 40.0 % AH Workflow SS MCH (RBC) [Entitic mass] 29.1 pg Normal 27.0 - 33.0 pg AH Workflow SS MCHC 33.1 G/dL Normal 32.0 - 36.0 G/dL AH Workflow SS MCV (RBC) [Entitic vol] 87.8 fL Normal 81.0 - 100.0 fL AH Workflow SS Monocytes (Bld) [#/Vol] 0.7 103/mcL Normal 0.1 - 1.4 10^3/mcL AH Workflow SS Monocytes/100 WBC (Bld) 4.5 % Normal 2.0 - 13.0 % AH Workflow SS Neutrophils (Bld) [#/Vol] 12.7 103/mcL High 2.3 - 8.1 10^3/mcL AH Workflow SS Neutrophils/100 WBC (Bld) 87.2 % High 50.0 - 75.0 % AH Workflow SS Platelet mean volume (Bld) [Entitic vol] 7.1 fL Normal 6.4 - 10.5 fL AH Workflow SS Platelets (Bld) [#/Vol] 220 103/mcL Normal 150 - 450 10^3/mcL AH Workflow SS Potassium [Moles/Vol] 5.6 mmol/L High 3.5 - 5.0 mEq/L AH ADM SS Comment on above: Result Comment: Spec imen slightly hemolyzed. RBC (Bld) [#/Vol] 3.38 106/mcL Low 4.50 - 6.0 0 10^6/mcL Workflow SS Sodium [Moles/Vol] 128 mmol/L Low 136 - 145 mEq/L AH ADM SS Urea nitrogen [Mass/Vol] 47.0 mg/dL High 8.0 - 22.0 mg/dL AH ADM SS Urea nitrogen/Creatinine [Mass ratio] 8.9 ratio Low 10.0 - 22.0 ratio AH ADM SS WBC (Bld) [#/Vol] 14.6 103/mcL High 4.5 - 10.8 10^3/mcL Workflow SS LABORATORYOrdered By: Juany Garcia on 12-31-2024 MRSA (PCR) Not Detected 1 (12/31/24 7:01 AM) Normal Not Detected Auto [facility]Sero SS Comment on above: Result Comment: [place] [id number] MRSA PCR Int See Below 2 *NA* (12/31/24 7:01 AM) Invalid Interpretation Code Auto Viro/Sero SS Comment on above: Result Comment: Clinical Interpretation: MRSA DNA not detected by Real-Time Polymerase Chain Reaction (PCR). A negative result may be due to intermittent colonization. Colonization may vary depending on patient treatment, patient status, or exposure to high-risk environments. As with all PCR based in vitro diagnostic tests, extremely low levels of target below the limit of detection of the assay may be detected, but results may not be reproducible. MRSAPCRon 12-31-2024 MRSA (PCR) Not detected Normal Not Detected [facility] Comment on above: Result Comment: [place] [id number] Performed By: #### M RSAPCR #### [place] [address] MRSA PCR Int See Below Normal [facility] Comment on above: Result Comment: Clinical Interpretation: MRSA DNA not detected by Real-Time Polymerase Chain Reaction (PCR). A negative result may be due to intermittent colonization. Colonization may vary depending on patient treatment, patient status, or exposure to high-risk environments. As with all PCR based in vitro diagnostic tests, extremely low levels of target below the limit of detection of the assay may be detected, but results may not be reproducible. Performed By: #### M RSAPCR #### [place] [address] MYCOon 12-31-2024 Mycoplasma IgM Negative [facility] Comment on above: Result Comment: INTE RPRETATION OF MYCOPLASMA IgM: Negative: IgM to M. pneumoniae Absent, or at levels below the assay limit of detection. Positive: IgM to M. pneumoniae Present. Invalid: Test results are invalid due to invalid internal control. Assay was performed in duplicate. Repeat testing is suggested if clinically indicated. Performed By: #### G FR, BMP #### [place] [address] VANCRon 12-31-2024 LDose Vancomycin: (random) See eMAR [facility] Comment on above: Performed By: #### V ANCR #### [place] [address] Vancomycin Lvl (random) 30.6 mcg/mL [facility] Comment on above: Performed By: #### V ANCR #### [place] [address] .Auto Diffon 12-30-2024 Basophil, Absolute 0.1 10 3/mcL Normal 0.0-0.3 [facility] Comment on above: Performed By: #### M RSAPCR #### [place] [address] Basophils/100 WBC (Bld) 0.5 % Normal 0.0-2.5 [facility] Comment on above: Performed By: #### M RSAPCR #### [place] [address] Eosinophil, Absolute 0.1 10 3/mcL Normal 0.0-0.7 [facility] Comment on above: Performed By: #### M RSAPCR #### [place] [address] Eosinophils/100 WBC (Bld) 0.4 % Normal 0.0-6.0 [facility] Comment on above: Performed By: #### M RSAPCR #### [place] [address] Lymphocyte, Absolute 0.7 10 3/mcL Low 0.9-4.3 [facility] Comment on above: Performed By: #### M RSAPCR #### [address] [address] Lymphocytes/100 WBC (Bld) 4.5 % Low 20.0-40.0 [facility] Comment on above: Performed By: #### M RSAPCR #### [address] [address] Monocyte, Absolute 0.6 10 3/mcL Normal 0.1-1.4 [facility] Comment on above: Performed By: #### M RSAPCR #### [address] [address] Monocytes/100 WBC (Bld) 3.8 % Normal 2.0-13.0 [facility] Comment on above: Performed By: #### M RSAPCR #### [address] [address] Neutrophils/100 WBC (Bld) 90.8 % High 50.0-75.0 [facility] Comment on above: Performed By: #### M RSAPCR #### [address] [address] .GFRon 12-30-2024 Estimated Glomerular Filtration Rate 13 ml/min/1.73sqm [facility] Comment on above: Result Comment: Stages of Chronic Kidney Disease (CKD) Stage Description eGFR(ml/min/1.73 sq.m.) CKD 1 Normal kidney function or >=90 normal kindney function with possible kidney damage (ex. Proteinuria) CKD 2 Kidney damage with mild loss 60-89 of kidney function CKD 3a Mild to moderate loss of kidney 45-59 function CKD 3b Moderate to severe loss of 30-44 of kindey function CKD 4 Severe loss of kidney function 15-29 CKD 5 Kidney failure <15 Note: (go live 2024) the eGFR calculation was updated to the 2020 CKD-EPI creatinine equation without a race factor to calculate the eGFR results. Performed By: #### G FR, BMP #### [address] [address] .NEUABSon 12-30-2024 Neutrophil, Absolute 14.6 10 3/mcL High 2.3-8.1 [facility] Comment on above: Performed By: #### M RSAPCR #### [facility] [address] [place] [address] Lead EKGon 12-30-2024 12 Lead EKG [facility] Cardiovascular Services [address] [place] [address] 12 Lead EKG 12/30/24 0531 MR#: [id number] Acct: [id number] Name: AGUSTO MONSALVE Rep #: [id number] : 1975 49 From: Andrez Scott MD Attending Dr: Status: DEP ER Ordering Dr: Poppy Singh DO Date: 12/30/24 Location: ED Sex: M C Admitted: Test Reason : DYSRHYTHMIA Blood Pressure : */* mmHG Vent. Rate : 111 BPM Atrial Rate : * BPM P-R Int : * ms QRS Dur : 176 ms QT Int : 420 ms P-R-T Axes : * 265 30 degrees QTcB Int : 571 ms Sinus tachycardia Right bundle branch block Inferior infarct , age undetermined Abnormal ECG Confirmed by Andrez Scott ([id number]), editor book FLACO WING ([id number]) on 01/05/2025 11:45:19 AM Referred By: Confirmed By: Andrez Scott 01/05/25 1145 Date Andrez Scott MD CC: Kayleen Pederson MD; Dr. Poppy Singh DO Signed Normal [facility] Absolute lymphocyte countOrd ered By: Poppy Singh on 12-30-2024 Lymphocytes Auto (Unsp spec) [#/Vol] 0.98 10*3/uL 0.83-4.51 [facility] Absolute neutrophil countOrd ered By: Poppy Singh on 12-30-2024 Neutrophils (Bld) [#/Vol] 16.6 10*3/uL High 2.0-7.7 [facility] Anion gap in Serum or Plasma Ordered By: Poppy Singh on 12-30-2024 Anion gap [Moles/Vol] 16 mmol/L High 5-15 [facility] Automated lymphocyte count a s percentage of total leukocytesOrdered By: Poppy Singh on 12-30-2024 Lymphocytes/100 WBC Auto (Unsp spec) 5.1 % Low 19-[facility] BUN/Creatinine Ratio 9.2 ratio Low 10.0-22.0 [facility] Comment on above: Performed By: #### M RSAPCR #### [address] [address] Calcium [Mass/Vol] 8.7 mg/dL Normal 8.7-10.4 [facility] Comment on above: Performed By: #### M RSAPCR #### [address] [address] Chloride [Moles/Vol] 89 mmol/L Low 98-110 [facility] Comment on above: Performed By: #### M RSAPCR #### [address] [address] CO2 [Moles/Vol] 22 mmol/L Normal 22-32 [facility] Comment on above: Performed By: #### M RSAPCR #### [address] [address] Creatinine [Mass/Vol] 5.02 mg/dL High 0.60-1.40 [facility] Comment on above: Result Comment: Test ing performed on Pianpian analyzer using enzymatic creatinine methodology. Performed By: #### M RSAPCR #### [address] [address] Electrolyte Balance 17.0 mEq/L High 4.0-15.0 [facility] Comment on above: Performed By: #### M RSAPCR #### [address] [address] Glucose [Mass/Vol] 139 mg/dL High 70-110 [facility] Comment on above: Performed By: #### M RSAPCR #### [address] [address] Potassium [Moles/Vol] 5.2 mmol/L High 3.5-5.0 [facility] Comment on above: Performed By: #### M RSAPCR #### [address] [address] Sodium [Moles/Vol] 128 mmol/L Low 136-145 [facility] Comment on above: Performed By: #### M RSAPCR #### [facility] [address] [place] [address] Urea nitrogen [Mass/Vol] 46.0 mg/dL High 8.0-22.0 [facility] Comment on above: Performed By: #### M RSAPCR #### [address] [address] BUN/creatinine ratioOrdered By: Poppy Singh on 12-30-2024 Urea nitrogen/Creatinine [Mass ratio] 8.7 mg/mg Low 10-20 [facility] Basophil percentageOrdered B y: Poppy Singh on 12-30-2024 Basophils/100 WBC (Bld) 0.4 % 0-1 [facility] Bedside Glucoseon 12-30-2024 FINGERSTICK GLU 183 mg/dL High 74-106 [facility] Comment on above: Result Comment: FABIAN FOSTER OF PATIENT CARE PER NURSING PROTOCOL Performed By: #### L 501.080 #### [facility] [address] [place], [address] Bilirubin, totalOrdered By: Poppy Singh on 12-30-2024 Bilirubin [Mass/Vol] 0.54 mg/dL 0.00-1.30 [facility] Blood cultureOrdered By: Renetta Singh on 12-30-2024 Bacteria identified Cx Nom (Bld) No growth in 5 days. [facility] Bacteria identified Cx Nom (Bld) No growth in 5 days. [facility] CBCon 12-30-2024 Erythrocyte distribution width (RBC) [Ratio] 17.1 % High 11.5-15.5 [facility] Comment on above: Performed By: #### M RSAPCR #### [address] [address] Hematocrit (Bld) [Volume fraction] 29.9 % Low 40.0-52.0 [facility] Comment on above: Performed By: #### M RSAPCR #### [place] [address] Hgb 9.8 G/dL Low 13.0-17.5 [facility] Comment on above: Performed By: #### M RSAPCR #### [place] [address] MCH (RBC) [Entitic mass] 28.6 pg Normal 27.0-33.0 [facility] Comment on above: Performed By: #### M RSAPCR #### [place] [address] MCHC 32.7 G/dL Normal 32.0-36.0 [facility] Comment on above: Performed By: #### M RSAPCR #### [place] [address] MCV (RBC) [Entitic vol] 87.2 fL Normal 81.0-100.0 [facility] Comment on above: Performed By: #### M RSAPCR #### [place] [address] Platelet 217 10 3/mcL Normal 150-450 [facility] Comment on above: Performed By: #### M RSAPCR #### [place] [address] Platelet mean volume (Bld) [Entitic vol] 6.9 fL Normal 6.4-10.5 [facility] Comment on above: Performed By: #### M RSAPCR #### [place] [address] RBC 3.43 10 6/mcL Low 4.50-6.00 [facility] Comment on above: Performed By: #### M RSAPCR #### [place] [id number] WBC 16.1 10 3/mcL High 4.5-10.8 [facility] Comment on above: Performed By: #### M RSAPCR #### [place] [address] CBC W/Diff, Automatedon 12-13 Absolute Lymph 0.98 X10 3/uL Normal 0.83-4.51 [facility] Comment on above: Performed By: #### L 100.0100, L500.4050 #### [facility] [address] [place], [address] Absolute Neut 16.6 X10 3/uL High 2.0-7.7 [facility] Comment on above: Performed By: #### L 100.0100, L500.4050 #### [facility] [address] [place], [address] Basophils/100 WBC (Bld) 0.4 % Normal 0-1 [facility] Comment on above: Performed By: #### L 100.0100, L500.4050 #### [facility] [address] [place], [address] Eosinophils/100 WBC (Bld) 0.7 % Normal 0-5 [facility] Comment on above: Performed By: #### L 100.0100, L500.4050 #### [facility] [address] [place], [address] Erythrocyte distribution width (RBC) [Ratio] 15.9 % High 11.6-14.6 [facility] Comment on above: Performed By: #### L 100.0100, L500.4050 #### [facility] [address] [place], [address] Hematocrit (Bld) [Volume fraction] 30.5 % Low 40-54 [facility] Comment on above: Performed By: #### L 100.0100, L500.4050 #### [facility] [address] [place], [address] Hemoglobin (Bld) [Mass/Vol] 9.9 g/dL Low 13.0-16.5 [facility] Comment on above: Performed By: #### L 100.0100, L500.4050 #### [facility] [address] [place], [address] IG% 1.300 High 0.0-0.9 [facility] Comment on above: Result Comment: IG% - Immature Granulocytes (promyelocytes, myelocytes and metamyelocytes) > 1% indicates that a LEFT SHIFT is Present. Performed By: #### L 100.0100, L500.4050 #### [facility] [address] [place], [address] Lymphocytes/100 WBC (Bld) 5.1 % Low 19-41 [facility] Comment on above: Performed By: #### L 100.0100, L500.4050 #### [facility] [address] [place], [address] MCH (RBC) [Entitic mass] 28.9 pg Normal 27.0-32.0 [facility] Comment on above: Performed By: #### L 100.0100, L500.4050 #### [facility] [address] [place], [address] MCHC (RBC) [Mass/Vol] 32.5 g/dL Normal 32-36 [facility] Comment on above: Performed By: #### L 100.0100, L500.4050 #### [facility] [address] [place], [address] MCV (RBC) [Entitic vol] 89.2 fL Normal 80-94 [facility] Comment on above: Performed By: #### L 100.0100, L500.4050 #### [facility] [address] [place], [address] Monocytes/100 WBC (Bld) 5.6 % Normal 0-10 [facility] Comment on above: Performed By: #### L 100.0100, L500.4050 #### [facility] [address] [place], [address] Neutrophils/100 WBC (Bld) 86.9 % High 47-70 [facility] Comment on above: Performed By: #### L 100.0100, L500.4050 #### [facility] [address] [place], [address] Nucleated RBC (Bld) [#/Vol] 0 10*3/uL Normal 0-5 [facility] Comment on above: Performed By: #### L 100.0100, L500.4050 #### [facility] [address] [place], [address] Platelet mean volume (Bld) [Entitic vol] 9.1 fL Normal 6.2-12.0 [facility] Comment on above: Performed By: #### L 100.0100, L500.4050 #### [facility] [address] [place], [address] Platelets (Bld) [#/Vol] 217 10*3/uL Normal 150-450 [facility] Comment on above: Performed By: #### L 100.0100, L500.4050 #### [facility] [address] [place], [address] RBC (Bld) [#/Vol] 3.42 10*6/uL Low 4.6-6.2 [facility] Comment on above: Performed By: #### L 100.0100, L500.4050 #### [facility] [address] [place], [address] RDW SD 51.8 fl High 35.1-43.9 [facility] Comment on above: Performed By: #### L 100.0100, L500.4050 #### [facility] [address] [place], [address] WBC (Bld) [#/Vol] 19.1 10*3/uL High 4.4-11.0 [facility] Comment on above: Performed By: #### L 100.0100, L500.4050 #### [facility] [address] [place], [address] CO2 (BldV) [Moles/Vol]Ordere d By: Poppy Singh on 12-30-2024 CO2 [Moles/Vol] 34 mmol/L High 23-[address] [facility] [address] Chest, Abd, Pelvis WO Con ton 12-30-2024 CT Chest, Abd, Pelvis WO Cont [facility] Imaging Services [address] [place] [address] CT Chest, Abd, Pelvis WO Cont MR#: [id number] Acct: [id number] Name: AGUSTO MONSALVE Rep #: [id number] : 1975 M 49 From: Latisha meehan MD PCP: Kayleen Pederson MD Status: REG ER Study: CT Chest, Abd, Pelvis WO Cont Date of Exam: Exam# [id number] Ordering Dr: Poppy Singh DO PROCEDURE: CT CHEST, ABD, PELVIS WO CONT 12/30/2024 REASON FOR EXAM: INFECTION, UNCLEAR SOURCE TECHNIQUE: Chest, abdomen and pelvis CT without intravenous contrast. Coronal and Sagittal reconstruction series were provided. One or more dose reduction techniques were used (e.g., Automated exposure control, adjustment of the mA and/or kV according to patient size, use of iterative reconstruction technique. RADIATION DOSE SUMMARY: CTDlvol: 27.06 mGy DLP: 2240 mGycm COMPARISON: 12/30/2024. FINDINGS: Mild cardiomegaly. Prior CABG. Bilateral basilar atelectatic pulmonary changes. Subsegmental atelectasis/airspace disease of the right middle lobe and lingula, probably multifocal pneumonia. Mild multifocal ground-glass densities of the lung bases, possibly multifocal pneumonia. Hepatomegaly. Cystic lesion is noted along the lesser curvature of the stomach extending to the lesser sac measuring 7.5 x 5.3 cm, suspicious for neoplastic pathology. Cholelithiasis with mild diffuse thickening of the wall of the gallbladder. This can be further evaluated by ultrasound exam. Heterogeneous cystic central mesenteric mass lesion is noted measuring 17 x 22 x 19.3 cm, probably neoplastic pathology. Splenomegaly measuring 16.3 cm. Mild osteopenia. Diffuse spondylosis. Bilateral nonobstructing renal stones with the largest measuring 2 mm. Fat containing umbilical hernia without incarceration. Normal unenhanced main pulmonary artery and right and left pulmonary arteries. Normal bilateral peripheral pulmonary arteries. Normal thoracic aorta and visualized great vessels. There is no demonstrated aortic aneurysm. Normal pericardium. Normal mediastinum. Normal hilar regions. Normal visualized trachea and bronchi. Normal pleura. Normal unenhanced liver. Normal extrahepatic biliary system. Normal pancreas. Normal bilateral adrenal glands. Normal size of the right kidney. There is no right renal mass. There is no right hydronephrosis. Normal visualized right ureter. Normal size of the left kidney. There is no left renal mass. There is no left hydronephrosis. Normal visualized left ureter. Normal visualized stomach. Normal small intestine. Normal colon. The appendix is visualized and appears normal. There is no demonstrated peritoneal fluid. Normal abdominal aorta. Normal inferior vena cava. Normal retroperitoneum. Normal urinary bladder. There is no pelvic mass lesion or lymphadenopathy. There is no pelvic fluid. CT/CT Chest, Abd, Pelvis WO Cont IMPRESSION: 1. Mild cardiomegaly. 2. Prior CABG. 3. Bilateral basilar atelectatic pulmonary changes. 4. Subsegmental atelectasis/airspace disease of the right middle lobe and lingula, probably multifocal pneumonia. 5. Mild multifocal ground-glass densities of the lung bases, possibly multifocal pneumonia. 6. Hepatomegaly. 7. Cystic lesion is noted along the lesser curvature of the stomach extending to the lesser sac measuring 7.5 x 5.3 cm, suspicious for neoplastic pathology. 8. Cholelithiasis with mild diffuse thickening of the wall of the gallbladder. This can be further evaluated by ultrasound exam. 9. Heterogeneous cystic central mesenteric mass lesion is noted measuring 17 x 22 x 19.3 cm, probably neoplastic pathology. 10. Splenomegaly measuring 16.3 cm. 11. Mild osteopenia. 12. Diffuse spondylosis. 13. Bilateral nonobstructing renal stones with the largest measuring 2 mm. 14. Fat containing umbilical hernia without incarceration. Reading [facility] CC: Kayleen Pederson MD; Dr. Poppy Singh DO Clinical Training Coordinator: Signed Normal [facility] Carbon dioxide, total [Moles /volume] in Central venous bloodOrdered By: Poppy Singh on 12-30-2024 CO2 [Moles/Vol] 25.8 mmol/L 21.0-32.0 [facility] Chest 1 View (Portable)on Chest 1 View (Portable) [facility] Imaging Services [address] [place] [address] Chest 1 View (Portable) MR#: [id number] Acct: [id number] Name: AGUSTO MONSALVE Rep #: [id number] : 1975 M 49 From: Latisha meehan MD PCP: Kayleen Pederson MD Status: REG ER Study: Chest 1 View (Portable) Date of Exam: 12/30/24 Exam# [id number] Ordering Dr: Poppy Singh DO PROCEDURE: CHEST 1 VIEW (PORTABLE) 12/30/2024 REASON FOR EXAM: COUGH TECHNIQUE: Frontal view of the chest. COMPARISON: 02/09/2024. FINDINGS: Unremarkable median sternotomy wires. Decreased central pulmonary venous congestion. Mild bilateral basilar atelectatic pulmonary changes. There is no demonstrated pleural abnormality. Enlarged cardiac silhouette. Normal mediastinum and tameka. Normal visualized pulmonary arteries. Atheromatous plaques of the visualized aortic arch and descending thoracic aorta. Diffuse spondylosis of the visualized thoracic spine. Normal visualized ribs, clavicles. Degenerative joint disease. There is no demonstrated abnormality of the visualized soft tissue structures of the upper abdomen. RAD/Chest 1 View (Portable) IMPRESSION: Unremarkable median sternotomy wires. Decreased central pulmonary venous congestion. Mild bilateral basilar atelectatic pulmonary changes. Unchanged cardiomegaly. Reading Location: [place] [address] CC: Kayleen Pederson MD; Dr. Poppy Singh DO Clinical Training Coordinator: Signed Normal [facility] Chloride assayOrdered By: Lukas Singh on 12-30-2024 Chloride [Moles/Vol] 86 mmol/L Low 98-108 [facility] Comprehensive Metabolic Prof ilon 12-30-2024 Albumin [Mass/Vol] 4.3 g/dL Normal 3.5-5.0 [facility] Comment on above: Performed By: #### L 100.0100, L500.4050 #### [facility] [address] [place], [address] Albumin/Globulin [Mass ratio] 1.4 {ratio} Normal 0.9-2.4 [facility] Comment on above: Performed By: #### L 100.0100, L500.4050 #### [facility] [address] [place], [address] ALK PHOS 173 U/L High 40-129 [facility] Comment on above: Performed By: #### L 100.0100, L500.4050 #### [facility] [address] [place], [address] ALT [Catalytic activity/Vol] 7 U/L Normal <=46 [facility] Comment on above: Performed By: #### L 100.0100, L500.4050 #### [facility] [address] [place], [address] AST [Catalytic activity/Vol] 11 U/L Normal <=37 [facility] Comment on above: Performed By: #### L 100.0100, L500.4050 #### [facility] [address] [place], [address] Bilirubin [Mass/Vol] 0.54 mg/dL Normal 0.00-1.30 [facility] Comment on above: Performed By: #### L 100.0100, L500.4050 #### [facility] [address] [place], [address] BUN/CRE 8.7 RATIO Low 10-20 [facility] Comment on above: Performed By: #### L 100.0100, L500.4050 #### [facility] [address] [place], [address] Calcium [Mass/Vol] 8.9 mg/dL Normal 7.6-11.0 [facility] Comment on above: Performed By: #### L 100.0100, L500.4050 #### [facility] [address] [place], [address] Chloride [Moles/Vol] 86 mmol/L Low 98-108 [facility] Comment on above: Performed By: #### L 100.0100, L500.4050 #### [facility] [address] [place], [address] CO2 [Moles/Vol] 25.8 mmol/L Normal 21.0-32.0 [facility] Comment on above: Performed By: #### L 100.0100, L500.4050 #### [facility] [address] [place], [address] Creatinine [Mass/Vol] 4.76 mg/dL High 0.70-1.20 [facility] Comment on above: Performed By: #### L 100.0100, L500.4050 #### [facility] [address] [place], [address] ECRCL 20.11 ml/min Low 50-250 [facility] Comment on above: Performed By: #### L 100.0100, L500.4050 #### [facility] [address] [place], [address] GAP 16 High 5-15 [facility] Comment on above: Performed By: #### L 100.0100, L500.4050 #### [facility] [address] [place], [address] GFR/1.73 sq M.predicted among non-blacks MDRD (S/P/Bld) [Vol rate/Area] 14 mL/min/{1.73_m2} Low >60 [facility] Comment on above: Result Comment: mL/m in/1.73m2 CKD-EPI Creatinine Equation (2020) Performed By: #### L 100.0100, L500.4050 #### [facility] [address] [place], [address] Globulin (S) [Mass/Vol] 3.0 g/dL Normal 2.2-4.2 [facility] Comment on above: Performed By: #### L 100.0100, L500.4050 #### [facility] [address] [place], [address] Glucose [Mass/Vol] 179 mg/dL High 70-99 [facility] Comment on above: Performed By: #### L 100.0100, L500.4050 #### [facility] [address] [place], [address] Potassium [Moles/Vol] 4.9 mmol/L Normal 3.3-5.1 [facility] Comment on above: Performed By: #### L 100.0100, L500.4050 #### [facility] [address] [place], [address] Sodium [Moles/Vol] 128 mmol/L Low 133-145 [facility] Comment on above: Performed By: #### L 100.0100, L500.4050 #### [facility] [address] [place], [address] T PROT 7.2 g/dL Normal 5.9-8.4 [facility] Comment on above: Performed By: #### L 100.0100, L500.4050 #### [facility] [address] [place], [address] Urea nitrogen [Mass/Vol] 41 mg/dL High 4-19 [facility] Comment on above: Performed By: #### L 100.0100, L500.4050 #### [facility] [address] [place], [address] Emergency Department Summary on 12-30-2024 Emergency Department Summary [facility] Medical Records Department [address] [place] [address] Emergency Department Summary 12/30/24 MR#: [id number] Acct: [id number] Name: AGUSTO MONSALVE Rep #: [id number] : 1975 49 From: Poppy Singh DO PCP: Kayleen Pederson MD Status:DEP ER Location: ED HPI History of Present Illness Chief Complaint: Alt LOC Informant: patient Narrative Narrative: Patient is a 49-year-old male with significant past medical history including end-stage renal disease on hemodialysis (Saturday with last dialysis on Saturday), sleep apnea (states he does not wear BiPAP/CPAP), coronary artery disease, hypertension, diabetes, COPD, bilateral BKA and recent diagnosis of loculated pleural effusion with questionable mass. He is presenting from nursing recently ([facility]) for concern of altered mental status. Per report patient was hard to arouse and borderline unresponsive. Per EMS patient is answering questions appropriately. Patient tells me that he has been complaining of worsening pain in his left ear for the past 24 hours. Denies any drainage. States for the past month he has had fullness in his right ear. Also notes that he has had a wet cough but cannot get anything up for the past month. He states he had a prior chest x-ray which was negative. He denies any other complaints or concerns at this time. Not report any fevers. Does not wear oxygen normally. Chart review shows that patient was recently saw cardiology on 12/08/2024 for routine follow-up. Was noted to be in atrial fibrillation was not started on anticoagulation because of bleeding risk associated with dialysis. Patient states he also recently had a biopsy of his left thigh it was diagnosed with melanoma. [facility] Medical History Left shoulder pain Sleep apnea Unspecified viral [...] capsule 25 mg PO QHS 12/17/23 Unknown His tory (Banophen) fluticasone 250 mcg-salmeterol 50 1 ea inhalation BID 12/17/23 Unkn own History mcg/dose blistr powdr for inhalation (Advair Diskus) fluticasone propionate 50 intranasal 12/17/23 Unknown Histor y mcg/actuation nasal spray,suspension gabapentin 300 mg capsule 300 mg PO QDAY 12/17/23 Unknown Hi story handicap placard #1 ea 12/17/23 Unknown Rx sodium chloride 0.65 % nasal spray spray intranasal 12/17/23 Unknow n History aerosol (Deep Sea Nasal) atorvastatin 40 mg tablet 40 mg PO QDAY #90 tabs 12/24/23 Un known Rx cyclobenzaprine 10 mg tablet 10 mg PO QHS #90 tabs 12/24/23 Unk nown Rx lidocaine 4 % topical patch 1 patch topical DAILY PRN pain #30 12/24/23 Unknown Rx (Lidocaine Pain Relief) ea magnesium oxide 400 mg (241.3 mg 400 mg PO TID #90 tabs 12/24/23 Un known Rx magnesium) tablet melatonin 5 mg tablet 5 mg PO QHS #90 tabs 12/24/23 Unkn own Rx tamsulosin 0.4 mg capsule 0.4 mg PO QDAY #90 caps 12/24/23 U nknown Rx flash glucose scanning reader #1 ea 01/09/24 Unknown Rx (FreeStyle Bianca 2 K[place]ett) flash glucose sensor (FreeStyle #1 ea 01/09/24 Unknown Rx Bianca 2 Sensor kit) miscellaneous medical supply 1 ea miscellaneous DIRECTED #6 01/09/24 Unknown Rx ea miscellaneous medical supply 1 ea miscellaneous DIRECTED Unknown Rx bowel incontinence #1 ea incontinence pad, liner, disp #80 ea 01/14/24 Unknown Rx acetaminophen 500 mg tablet 1,000 mg PO Q8H PRN PRN 11/24/24 U nknown History (Tylenol Extra Strength) amlodipine 5 mg tablet 5 mg PO SUTUTHSA 11/24/24 Unknown History ciclopirox 8 % topical solution topical 11/24/24 Unknown History famotidine 40 mg tablet 40 mg PO QDAY 11/24/24 Unknown His tory hydralazine 50 mg tablet 50 mg PO .COMPLEX 11/24/24 Unknown History lidocaine HCl 4 % topical cream 1 applic topical BID 11/24/24 Unkn own History (Aspercreme (lidocaine HCl)) loperamide 2 mg tablet mg PO 11/24/24 Unknown History (Anti-Diarrheal (loperamide)) midodrine 10 mg tablet 10 mg PO MOWEFR 11/24/24 Unknown H istory midodrine 5 mg tablet 5 mg PO .COMPLEX 11/24/24 Unknown History nystatin 100,000 unit/gram topical applic topical 11/24/24 Unknown History ointment ondansetron HCl 4 mg tablet 8 mg PO DAILY 11/24/24 Unknow (more content not included)... Normal [facility] Eosinophil percentageOrdered By: Poppy Singh on 12-30-2024 Eosinophils/100 WBC (Bld) 0.7 % 0-5 [facility] Erythrocyte distribution wid th ratioOrdered By: Poppy Singh on 12-30-2024 Erythrocyte distribution width (RBC) [Ratio] 15.9 % High 11.6-14.6 [facility] Erythrocyte distribution wid th standard deviationOrdered By: Poppy Singh on 12-30-2024 Erythrocyte distribution width (RBC) [Ratio] 51.8 fl High 35.1-43.9 [facility] Glomerular filtration rate ( GFR) estimation/1.73 sq m using serum, plasma, or whole bOrdered By: Poppy Singh on 12-30-2024 GFR/1.73 sq M.predicted among non-blacks MDRD (S/P/Bld) [Vol rate/Area] 14 mL/min/{1.73_m2} Low >60 [facility] Comment on above: mL/min/1.73m2 CKD-EP I Creatinine Equation (2020) [facility] deOrdered By: Poppy Singh on 12-30-2024 Glucose [Mass/Vol] 183 mg/dL High 74-106 [facility] Comment on above: MANAGEMENT OF PATIEN T CARE PER NURSING PROTOCOL Hematocrit Auto (Bld) [Volum e fraction]Ordered By: Poppy Singh on 12-30-2024 Hematocrit (Bld) [Volume fraction] 30.5 % Low 40-54 [facility] Hemoglobin measurementOrdere d By: Poppy Singh on 12-30-2024 Hemoglobin (Bld) [Mass/Vol] 9.9 g/dL Low 13.0-16.5 [facility] Immature granulocytes/100 WB C Auto (Bld)Ordered By: Poppy Singh on 12-30-2024 Immature granulocytes/100 WBC (Bld) 1.300 % High 0.0-0.9 [facility] Comment on above: IG% - Immature Granu locytes (promyelocytes, myelocytes and metamyelocytes) > 1% indicates that a LEFT SHIFT is Present. LABORATORYOrdered By: SYSTEM SYSTEM on 12-30-2024 Basophils (Bld) [#/Vol] 0.1 103/mcL Normal 0.0 - 0.3 10^3/mcL Workflow SS Basophils/100 WBC (Bld) 0.5 % Normal 0.0 - 2.5 % Workflow SS Calcium [Mass/Vol] 8.7 mg/dL Normal 8.7 - 10. 4 mg/dL ADM SS Chloride [Moles/Vol] 89 mmol/L Low 98 - 11 0 mEq/L ADM SS CO2 [Moles/Vol] 22 mmol/L Normal 22 - 32 mEq/L ADM SS Creatinine [Mass/Vol] 5.02 mg/dL High 0.60 - 1.40 mg/dL ADM SS Comment on above: Interpretive Data: T esting performed on [employer] analyzer using enzymatic creatinine methodology. Electrolyte Balance 17.0 mEq/L High 4.0 - 15 .0 mEq/L ADM SS Eosinophils (Bld) [#/Vol] 0.1 103/mcL Normal 0.0 - 0.7 10^3/mcL Workflow SS Eosinophils/100 WBC (Bld) 0.4 % Normal 0.0 - 6.0 % Workflow SS Erythrocyte distribution width (RBC) [Ratio] 17.1 % High 11.5 - 15.5 % Workflow SS Estimated Glomerular Filtration Rate 13 ml/min/1.73sqm Invalid Interpretation Code Chemistry S Comment on above: Interpretive Data: Stages of Chronic Kidney Disease (CKD) Stage Description eGFR(ml/min/1.73 sq.m.) CKD 1 Normal kidney function or >=90 normal kindney function with possible kidney damage (ex. Proteinuria) CKD 2 Kidney damage with mild loss 60-89 of kidney function CKD 3a Mild to moderate loss of kidney 45-59 function CKD 3b Moderate to severe loss of 30-44 of kindey function CKD 4 Severe loss of kidney function 15-29 CKD 5 Kidney failure <15 Note: (go live 2024) the eGFR calculation was updated to the 2020 CKD-EPI creatinine equation without a race factor to calculate the eGFR results. Glucose [Mass/Vol] 139 mg/dL High 70 - 110 mg/dL ADM SS Hematocrit (Bld) [Volume fraction] 29.9 % Low 40.0 - 52.0 % AH Workflow SS Hemoglobin (Bld) [Mass/Vol] 9.8 G/dL Low 13.0 - 17.5 G/dL AH Workflow SS Lactate [Moles/Vol] 0.7 mmol/L Normal 0.5 - 2. 2 mmol/L ADM SS Lymphocytes (Bld) [#/Vol] 0.7 103/mcL Low 0.9 - 4.3 10^3/mcL AH Workflow SS Lymphocytes/100 WBC (Bld) 4.5 % Low 20.0 - 40.0 % AH Workflow SS Magnesium [Mass/Vol] 2.6 mg/dL High 1.6 - 2 .4 mg/dL ADM SS MCH (RBC) [Entitic mass] 28.6 pg Normal 27.0 - 33.0 pg AH Workflow SS MCHC 32.7 G/dL Normal 32.0 - 36.0 G/dL AH Workflow SS MCV (RBC) [Entitic vol] 87.2 fL Normal 81.0 - 100.0 fL AH Workflow SS Monocytes (Bld) [#/Vol] 0.6 103/mcL Normal 0.1 - 1.4 10^3/mcL AH Workflow SS Monocytes/100 WBC (Bld) 3.8 % Normal 2.0 - 13.0 % AH Workflow SS Neutrophils (Bld) [#/Vol] 14.6 103/mcL High 2.3 - 8.1 10^3/mcL AH Workflow SS Neutrophils/100 WBC (Bld) 90.8 % High 50.0 - 75.0 % AH Workflow SS Platelet mean volume (Bld) [Entitic vol] 6.9 fL Normal 6.4 - 10.5 fL Workflow SS Platelets (Bld) [#/Vol] 217 103/mcL Normal 150 - 450 10^3/mcL Workflow SS Potassium [Moles/Vol] 5.2 mmol/L High 3.5 - 5.0 mEq/L ADM SS RBC (Bld) [#/Vol] 3.43 106/mcL Low 4.50 - 6.0 0 10^6/mcL Workflow SS Sodium [Moles/Vol] 128 mmol/L Low 136 - 145 mEq/L ADM SS Troponin I.cardiac DL <= 0.01 ng/mL [Mass/Vol] 12 ng/L Normal 0 - 54 ng/L ADM Comment on above: Interpretive Data: High Sensitive Troponin I Reference Ranges: Female: 0-34 ng/L Male: 0-54 ng/L Testing performed on [employer] analyzer using direct chemiluminescent technology. Urea nitrogen [Mass/Vol] 46.0 mg/dL High 8.0 - 22.0 mg/dL ADM SS Urea nitrogen/Creatinine [Mass ratio] 9.2 ratio Low 10.0 - 22.0 ratio ADM SS WBC (Bld) [#/Vol] 16.1 103/mcL High 4.5 - 10.8 10^3/mcL Workflow LABORATORYOrdered By: Milagro Baca on 12-30-2024 M. pneumoniae IgG IA Ql (S) Positive 15 *NA* (12/30/24 10:23 PM) Invalid Interpretation Code Auto Viro/Sero SS Comment on above: Interpretive Data: I NTERPRETATION OF MYCOPLASMA IgG BY EIA: Negative: No detectable M. pneumoniae IgG antibody. Positive: Mycoplasma pneumoniae IgG antibody Detected. Equivocal: Equivocal for IgG antibodies to Mycoplasma pneumoniae. Suggest repeat testing in 10-14 days. M. pneumoniae IgM IA Ql (S) Negative 14 (12/30/24 10:23 PM) Normal Man Viro/Sero SS Comment on above: Interpretive Data: I NTERPRETATION OF MYCOPLASMA IgM: Negative: IgM to M. pneumoniae Absent, or at levels below the assay limit of detection. Positive: IgM to M. pneumoniae Present. Invalid: Test results are invalid due to invalid internal control. Assay was performed in duplicate. Repeat testing is suggested if clinically indicated. Mian 12-30-2024 Lactic Acid Lvl 0.7 mmol/L Normal 0.5-2.2 [facility] Comment on above: Performed By: #### M RSAPCR #### [address] [address] Laboratory - Chemistry and C hemistry - challengeOrdered By: Poppy Singh on 12-30-2024 AST [Catalytic activity/Vol] 11 U/L <38 [facility] Lactic Acidon 12-30-2024 Lactate [Moles/Vol] 1.1 mmol/L Normal 0.0-2.0 [facility] Comment on above: Order Comment: Y Performed By: #### L 503.6005 #### [facility] [address] [place], [address] Lactic acid measurementOrder ed By: Poppy Singh on 12-30-2024 Lactate [Moles/Vol] 1.1 mmol/L 0.0-2.0 [facility] MCV (mean corpuscular volume ) determinationOrdered By: Poppy Singh on 12-30-2024 MCV (RBC) [Entitic vol] 89.2 fL 80-94 [facility] MGon 12-30-2024 Magnesium [Mass/Vol] 2.6 mg/dL High 1.6-2.4 [facility] Comment on above: Performed By: #### M RSAPCR #### [address] [address] Mean corpuscular hemoglobin (MCH) determinationOrdered By: Poppy Singh on 12-30-2024 MCH (RBC) [Entitic mass] 28.9 pg 27.0-32.0 [facility] Mean corpuscular hemoglobin concentration (MCHC) determinationOrdered By: Poppy Singh on 12-30-2024 MCHC (RBC) [Mass/Vol] 32.5 g/dL 32-36 [facility] Mean platelet volume determi nationOrdered By: Poppy Singh on 12-30-2024 Platelet mean volume (Bld) [Entitic vol] 9.1 fL 6.2-12.0 [facility] Monocyte percentageOrdered B y: Poppy Singh on 12-30-2024 Monocytes/100 WBC (Bld) 5.6 % 0-10 [facility] Neutrophil percentageOrdered By: Poppy Singh on 12-30-2024 Neutrophils/100 WBC (Bld) 86.9 % High 47-70 [facility] No Panel InformationOrdered By: Poppy Singh on 12-30-2024 Blood Gas Sample Site Not entered [facility] Blood Gas Specimen Type KEVIN [facility] Oxygen Delivery Device Cannula [facility] Nucleated red blood cell per centageOrdered By: Poppy Singh on 12-30-2024 Nucleated RBC/100 WBC (Bld) [Ratio] 0 % 0-5 [facility] Platelet countOrdered By: Lukas Singh on 12-30-2024 Platelets (Bld) [#/Vol] 217 10*3/uL 150-450 [facility] Potassium measurement (mass/ volume)Ordered By: Poppy Singh on 12-30-2024 Potassium (Unsp spec) [Mass/Vol] 4.9 mmol/L 3.3-5.1 [facility] RBC Auto (Bld) [#/Vol]Ordere d By: Poppy Singh on 12-30-2024 RBC (Bld) [#/Vol] 3.42 10*6/uL Low 4.6-6.2 [facility] Serum creatinine measurement (mass/volume)Ordered By: Poppy Singh on 12-30-2024 Creatinine [Mass/Vol] 4.76 mg/dL High 0.70-1.20 [facility] Serum globulin measurementOr dered By: Poppy Singh on 12-30-2024 Globulin (S) [Mass/Vol] 3.0 g/dL 2.2-4.2 [facility] Serum glucose measurement (m ass/volume)Ordered By: Poppy Singh on 12-30-2024 Glucose [Mass/Vol] 179 mg/dL High 70-99 [facility] Serum or plasma alanine martinez otransferase (ALT) measurementOrdered By: Poppy Singh on 12-30-2024 ALT [Catalytic activity/Vol] 7 U/L <47 [facility] Serum or plasma albumin zainab urement (mass/volume)Ordered By: Poppy Singh on 12-30-2024 Albumin [Mass/Vol] 4.3 g/dL 3.5-5.0 [facility] Serum or plasma albumin/glob ulin mass ratioOrdered By: Poppy Singh on 12-30-2024 Albumin/Globulin [Mass ratio] 1.4 {ratio} 0.9-2.4 [facility] Serum or plasma alkaline robert sphatase measurementOrdered By: Poppy Singh on 12-30-2024 ALP [Catalytic activity/Vol] 173 U/L High 40-129 [facility] Serum or plasma calcium zainab urement (mass/volume)Ordered By: Poppy Singh on 12-30-2024 Calcium [Mass/Vol] 8.9 mg/dL 7.6-11.0 [facility] Serum or plasma urea nitroge n measurement (mass/volume)Ordered By: Poppy Singh on 12-30-2024 Urea nitrogen [Mass/Vol] 41 mg/dL High 4-19 [facility] Sodium levelOrdered By: Anant Singh on 12-30-2024 Sodium [Moles/Vol] 128 mmol/L Low 133-145 [facility] TROPHSon 12-30-2024 High Sensitivity Troponin I 12 ng/L Normal 0-54 [facility] Comment on above: Result Comment: High Sensitive Troponin I Reference Ranges: Female: 0-34 ng/L Male: 0-54 ng/L Testing performed on [employer] analyzer using direct chemiluminescent technology. Performed By: #### M RSAPCR #### [address] [address] Total proteinOrdered By: Renetta Singh on 12-30-2024 Protein [Mass/Vol] 7.2 g/dL 5.9-8.4 [facility] Venous Blood Gason Blood Gas Type KEVIN Normal [facility] Comment on above: Performed By: #### L 100.0100, L500.4050 #### [facility] [address] [place] [address]. [place], [address] CO2 [Moles/Vol] 34 mmol/L High 23-33 [facility] Comment on above: Performed By: #### L 100.0100, L500.4050 #### [facility] [address] [place], [address] FI02 2.0 Normal [facility] Comment on above: Performed By: #### L 100.0100, L500.4050 #### [facility] [address] [place], [address] HCO3 (Bld) [Moles/Vol] 33 mmol/L High 22-26 [facility] Comment on above: Performed By: #### L 100.0100, L500.4050 #### [facility] [address] [place], [address] O2 Delivery Dev Cannula Normal [facility] Comment on above: Performed By: #### L 100.0100, L500.4050 #### [facility] [address] [place], [address] SITE Not entered Normal [facility] Comment on above: Performed By: #### L 100.0100, L500.4050 #### [facility] [address] [place], [address] VBG BE 9 mmol/L High -1.0-3.5 [facility] Comment on above: Performed By: #### L 100.0100, L500.4050 #### [facility] [address] [place], [address] VBG pCO2 43.8 mmHg Normal 41-51 [facility] Comment on above: Performed By: #### L 100.0100, L500.4050 #### [facility] [address] [place], [address] VBG pH 7.48 High 7.32-7.42 [facility] Comment on above: Performed By: #### L 100.0100, L500.4050 #### [facility] [address] [place], [address] VBG PO2 39 mmHg Normal 25-40 [facility] Comment on above: Performed By: #### L 100.0100, L500.4050 #### [facility] [address] [place], [address] VBG SO2 76 High 50-70 [facility] Comment on above: Performed By: #### L 100.0100, L500.4050 #### [facility] [address] [place], [place], [address] Venous blood base excess eduardo surementOrdered By: Poppy Singh on 12-30-2024 Base excess Calc (BldV) [Moles/Vol] 9 mmol/L High -1.0-3.5 [facility] Venous blood bicarbonate eduardo surementOrdered By: Poppy Singh on 12-30-2024 HCO3 (Bld) [Moles/Vol] 33 mmol/L High 22-26 [facility] Venous blood oxygen saturati on measurementOrdered By: Poppy Singh on 12-30-2024 Oxygen saturation in Blood 76 % High 50-70 [facility] Venous blood pH measurementO rdered By: Poppy Singh on 12-30-2024 pH (BldV) 7.48 [pH] High 7.32-7.42 [facility] Venous blood partial pressur e of carbon dioxide measurementOrdered By: Poppy Singh on 12-30-2024 CO2 (BldV) [Partial pressure] 43.8 mm[Hg] 41-51 [facility] Venous blood partial pressur e of oxygen measurementOrdered By: Poppy Singh on 12-30-2024 Oxygen (BldV) [Partial pressure] 39 mm[Hg] 25-40 [facility] White blood cell (WBC) count Ordered By: Poppy Singh on 12-30-2024 WBC (Bld) [#/Vol] 19.1 10*3/uL High 4.4-11.0 [facility] Cardiology Visit Reporton Cardiology Visit Report [facility] [address] [place] [address] OFFICE VISIT Date of Service: 12/08/24 MR#: [id number] Acct: [id number] Name: AGUSTO MONSALVE Rep #: [id number] : 1975 Provider: Dr. Tiburcio Osborne MD Age/Sex: 49/M Location: [facility] [place] Status: Signed HPI HPI History of Present Illness Details: This gentleman has been referred to us for establishing cardiac care. Patient has a complex past medical history. 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 Patient denies any chest pains. He has [...] Source NIBP Intake Visit Reasons: Abnormal EKG Electroplater Automatic Required: No Accompanied by: Self Is patient [...] ea 01/09/24 12/08/24 Rx (FreeStyle Bianca 2 [place]) flash glucose sensor (FreeStyle #1 ea 01/09/24 [...] % topical cream 1 applic topical BID 11/24/24 05/2 09/08 History (Aspercreme (lidocaine HCl)) loperamide 2 mg [...] you fallen in the past year?: No [facility] Medical History (Updated 12/08/24 @ 12:[address] 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 Normal [facility] Orthopedic Visit Reporton Orthopedic Visit Report [facility] [address] [place] [address] OFFICE VISIT Date of Service: 12/03/24 MR#: [id number] Acct: [id number] Name: AGUSTO MONSALVE Rep #: [id number] : 1975 Provider: Dr. Agusto rivera MD Age/Sex: 49/M Location: [facility] [place] Status: Signed Intake Vital Signs 02/09/24 [...] ea 01/09/24 12/03/24 Rx (FreeStyle Bianca 2 [place]) flash glucose sensor (FreeStyle #1 ea 01/09/24 [...] niece's husb (more content not included)... Normal [facility] Shoulder min 2 Viewson 12-03 Shoulder min 2 Views [facility] Services [address] [place], [place] [address] Shoulder min 2 Views MR#: [id number] Acct: [id number] Name: AGUSTO MONSALVE Rep #: [id number] : 1975 M 49 From: Kirk Poole MD PCP: Status: DEP AMB Study: Shoulder min 2 Views Date of Exam: 12/03/24 Exam# [id number] Ordering Dr: Agusto Rogers MD PROCEDURE: SHOULDER [...] Very mild acromioclavicular joint osteoarthrosis. Reading Location: [id number] CC: Dr. Agusto Rogers MD Clinical Training Coordinator: Signed Normal [facility] Absolute lymphocyte countOrd ered By: Ton Vasquez on 11-06-2024 Lymphocytes Auto (Unsp spec) [#/Vol] 1.39 10*3/uL 0.83-4.51 [facility] Absolute neutrophil countOrd ered By: Ton Vasquez on 11-06-2024 Neutrophils (Bld) [#/Vol] 6.9 10*3/uL 2.0-7.7 [facility] Automated lymphocyte count a s percentage of total leukocytesOrdered By: Ton Vasquez on 11-06-2024 Lymphocytes/100 WBC Auto (Unsp spec) 15.4 % Low 19-41 [facility] BUNon 11-06-2024 Urea nitrogen [Mass/Vol] 49 mg/dL High - [facility] Comment on above: Performed By: #### L 501.5600, L100.0100, L501.1000 #### [facility] [address] [place], [address] Urea nitrogen [Mass/Vol] 14 mg/dL Normal 10-31 [facility] Comment on above: Performed By: #### L 501.1000 #### [facility] [address] [place], [address] Basophil percentageOrdered B y: Ton Torresnav on 11-06-2024 Basophils/100 WBC (Bld) 0.8 % 0-1 [facility] CBC W/Diff, Automatedon 10-14 Absolute Lymph 1.39 X10 3/uL Normal 0.83-4.51 [facility] Comment on above: Performed By: #### L 501.5600, L100.0100, L501.1000 #### [facility] [address] [place], [address] Absolute Neut 6.9 X10 3/uL Normal 2.0-7.7 [facility] Comment on above: Performed By: #### L 501.5600, L100.0100, L501.1000 #### [facility] [address] [place], [address] Basophils/100 WBC (Bld) 0.8 % Normal 0-1 [facility] Comment on above: Performed By: #### L 501.5600, L100.0100, L501.1000 #### [facility] [address] [place], [address] Eosinophils/100 WBC (Bld) 1.2 % Normal 0-5 [facility] Comment on above: Performed By: #### L 501.5600, L100.0100, L501.1000 #### [facility] [address] [place], [address] Erythrocyte distribution width (RBC) [Ratio] 16.4 % High 11.6-14.6 [facility] Comment on above: Performed By: #### L 501.5600, L100.0100, L501.1000 #### [facility] [address] [place], [address] Hematocrit (Bld) [Volume fraction] 36.0 % Low 40-54 [facility] Comment on above: Performed By: #### L 501.5600, L100.0100, L501.1000 #### [facility] [address] [place], [address] Hemoglobin (Bld) [Mass/Vol] 11.4 g/dL Low 13.0-16.5 [facility] Comment on above: Performed By: #### L 501.5600, L100.0100, L501.1000 #### [facility] [address] [place], [address] IG% 0.400 Normal 0.0-0.9 [facility] Comment on above: Result Comment: IG% - Immature Granulocytes (promyelocytes, myelocytes and metamyelocytes) > 1% indicates that a LEFT SHIFT is Present. Performed By: #### L 501.5600, L100.0100, L501.1000 #### [facility] [address] [place], [address] Lymphocytes/100 WBC (Bld) 15.4 % Low 19-41 [facility] Comment on above: Performed By: #### L 501.5600, L100.0100, L501.1000 #### [facility] [address] [place], [address] MCH (RBC) [Entitic mass] 29.5 pg Normal 27.0-32.0 [facility] Comment on above: Performed By: #### L 501.5600, L100.0100, L501.1000 #### [facility] [address] [place], [address] MCHC (RBC) [Mass/Vol] 31.7 g/dL Low 32-36 [facility] Comment on above: Performed By: #### L 501.5600, L100.0100, L501.1000 #### [facility] [address] [place], [address] MCV (RBC) [Entitic vol] 93.0 fL Normal 80-94 [facility] Comment on above: Performed By: #### L 501.5600, L100.0100, L501.1000 #### [facility] [address] [place], [address] Monocytes/100 WBC (Bld) 5.5 % Normal 0-10 [facility] Comment on above: Performed By: #### L 501.5600, L100.0100, L501.1000 #### [facility] [address] [place], [address] Neutrophils/100 WBC (Bld) 76.7 % High 47-70 [facility] Comment on above: Performed By: #### L 501.5600, L100.0100, L501.1000 #### [facility] [address] [place], [address] Nucleated RBC (Bld) [#/Vol] 0 10*3/uL Normal 0-5 [facility] Comment on above: Performed By: #### L 501.5600, L100.0100, L501.1000 #### [facility] [address] [place], [address] Platelet mean volume (Bld) [Entitic vol] 9.6 fL Normal 6.2-12.0 [facility] Comment on above: Performed By: #### L 501.5600, L100.0100, L501.1000 #### [facility] [address] [place], [address] Platelets (Bld) [#/Vol] 234 10*3/uL Normal 150-450 [facility] Comment on above: Performed By: #### L 501.5600, L100.0100, L501.1000 #### [facility] [address] [place], [address] RBC (Bld) [#/Vol] 3.87 10*6/uL Low 4.6-6.2 [facility] Comment on above: Performed By: #### L 501.5600, L100.0100, L501.1000 #### [facility] [address] [place], [address] RDW SD 54.6 fl High 35.1-43.9 [facility] Comment on above: Performed By: #### L 501.5600, L100.0100, L501.1000 #### [facility] [address] [place], [address] WBC (Bld) [#/Vol] 9.1 10*3/uL Normal 4.4-11.0 [facility] Comment on above: Performed By: #### L 501.5600, L100.0100, L501.1000 #### [facility] [address] [place], [address] Eosinophil percentageOrdered By: Ton Vasquez on 11-06-2024 Eosinophils/100 WBC (Bld) 1.2 % 0-5 [facility] Erythrocyte distribution wid th ratioOrdered By: Ton Vasquez on 11-06-2024 Erythrocyte distribution width (RBC) [Ratio] 16.4 % High 11.6-14.6 [facility] Erythrocyte distribution wid th standard deviationOrdered By: Ton Vasquez on 11-06-2024 Erythrocyte distribution width (RBC) [Ratio] 54.6 fl High 35.1-43.9 [facility] Hematocrit Auto (Bld) [Volum e fraction]Ordered By: Ton Vasquez on 11-06-2024 Hematocrit (Bld) [Volume fraction] 36.0 % Low 40-54 [facility] Hemoglobin measurementOrdere d By: Ton Vasquez on 11-06-2024 Hemoglobin (Bld) [Mass/Vol] 11.4 g/dL Low 13.0-16.5 [facility] Immature granulocytes/100 WB C Auto (Bld)Ordered By: Ton Vasquez on 11-06-2024 Immature granulocytes/100 WBC (Bld) 0.400 % 0.0-0.9 [facility] Comment on above: IG% - Immature Granu locytes (promyelocytes, myelocytes and metamyelocytes) > 1% indicates that a LEFT SHIFT is Present. MCV (mean corpuscular volume ) determinationOrdered By: Ton Vasquez on 11-06-2024 MCV (RBC) [Entitic vol] 93.0 fL 80-94 [facility] Mean corpuscular hemoglobin (MCH) determinationOrdered By: Ton Vasquez on 11-06-2024 MCH (RBC) [Entitic mass] 29.5 pg 27.0-32.0 [facility] Mean corpuscular hemoglobin concentration (MCHC) determinationOrdered By: Ton Vasquez on 11-06-2024 MCHC (RBC) [Mass/Vol] 31.7 g/dL Low 32-36 [facility] Mean platelet volume determi nationOrdered By: Ton Vasquez on 11-06-2024 Platelet mean volume (Bld) [Entitic vol] 9.6 fL 6.2-12.0 [facility] Monocyte percentageOrdered B y: Ton Vasquez on 11-06-2024 Monocytes/100 WBC (Bld) 5.5 % 0-10 [facility] Neutrophil percentageOrdered By: Ton Vasquez on 11-06-2024 Neutrophils/100 WBC (Bld) 76.7 % High 47-70 [facility] Nucleated red blood cell per centageOrdered By: Ton Vasquez on 11-06-2024 Nucleated RBC/100 WBC (Bld) [Ratio] 0 % 0-5 [facility] Platelet countOrdered By: Jules Vasquez on 11-06-2024 Platelets (Bld) [#/Vol] 234 10*3/uL 150-450 [facility] Potassiumon 11-06-2024 Potassium [Moles/Vol] 5.2 mmol/L High 3.3-5.1 [facility] Comment on above: Performed By: #### L 501.5600, L100.0100, L501.1000 #### [facility] [address] [place], [address] Potassium measurement (mass/ volume)Ordered By: Ton Vasquez on 11-06-2024 Potassium (Unsp spec) [Mass/Vol] 5.2 mmol/L High 3.3-5.1 [facility] RBC Auto (Bld) [#/Vol]Ordere d By: Ton Vasquez on 11-06-2024 RBC (Bld) [#/Vol] 3.87 10*6/uL Low 4.6-6.2 [facility] Serum or plasma urea nitroge n measurement (mass/volume)Ordered By: Ton Vasquez on 11-06-2024 Urea nitrogen [Mass/Vol] 14 mg/dL 4-19 [facility] White blood cell (WBC) count Ordered By: Ton Vasquez on 11-06-2024 WBC (Bld) [#/Vol] 9.1 10*3/uL 4.4-11.0 [facility] Absolute lymphocyte countOrd ered By: Gila Bernal on 10-30-2024 Lymphocytes Auto (Unsp spec) [#/Vol] 1.24 10*3/uL 0.83-4.51 [facility] Absolute neutrophil countOrd ered By: Gila Bernal on 10-30-2024 Neutrophils (Bld) [#/Vol] 7.4 10*3/uL 2.0-7.7 [facility] Anion gap in Serum or Plasma Ordered By: Gila Bernal on 10-30-2024 Anion gap [Moles/Vol] 15 mmol/L 5-15 [facility] Automated lymphocyte count a s percentage of total leukocytesOrdered By: Gila Bernal on 10-30-2024 Lymphocytes/100 WBC Auto (Unsp spec) 13.0 % Low 19-41 [facility] BUN/creatinine ratioOrdered By: Gila Bernal on 10-30-2024 Urea nitrogen/Creatinine [Mass ratio] 6.1 mg/mg Low 10-20 [facility] Basophil percentageOrdered B y: Gila Bernal on 10-30-2024 Basophils/100 WBC (Bld) 0.6 % 0-1 [facility] Bilirubin, totalOrdered By: Gila Bernal on 10-30-2024 Bilirubin [Mass/Vol] 0.49 mg/dL 0.00-1.30 [facility] Carbon dioxide, total [Moles /volume] in Central venous bloodOrdered By: Gila Bernal on 10-30-2024 CO2 [Moles/Vol] 28.0 mmol/L 21.0-32.0 [facility] Chloride assayOrdered By: Rich Bernal on 10-30-2024 Chloride [Moles/Vol] 92 mmol/L Low 98-108 [facility] Eosinophil percentageOrdered By: Gila Bernal on 10-30-2024 Eosinophils/100 WBC (Bld) 1.3 % 0-5 [facility] Erythrocyte distribution wid th ratioOrdered By: Gila Bernal on 10-30-2024 Erythrocyte distribution width (RBC) [Ratio] 17.0 % High 11.6-14.6 [facility] Erythrocyte distribution wid th standard deviationOrdered By: Gila Bernal on 10-30-2024 Erythrocyte distribution width (RBC) [Ratio] 57.1 fl High 35.1-43.9 [facility] Glomerular filtration rate ( GFR) estimation/1.73 sq m using serum, plasma, or whole bOrdered By: Gila Bernal on 10-30-2024 GFR/1.73 sq M.predicted among non-blacks MDRD (S/P/Bld) [Vol rate/Area] 23 mL/min/{1.73_m2} Low >60 [facility] Comment on above: mL/min/1.73m2 CKD-EP I Creatinine Equation (2020) Hematocrit Auto (Bld) [Volum e fraction]Ordered By: Gila Bernal on 10-30-2024 Hematocrit (Bld) [Volume fraction] 37.6 % Low 40-54 [facility] Hemoglobin measurementOrdere d By: Gila Bernal on 10-30-2024 Hemoglobin (Bld) [Mass/Vol] 11.8 g/dL Low 13.0-16.5 [facility] Immature granulocytes/100 WB C Auto (Bld)Ordered By: Gila Bernal on 10-30-2024 Immature granulocytes/100 WBC (Bld) 0.400 % 0.0-0.9 [facility] Comment on above: IG% - Immature Granu locytes (promyelocytes, myelocytes and metamyelocytes) > 1% indicates that a LEFT SHIFT is Present. Laboratory - Chemistry and C hemistry - challengeOrdered By: Gila Bernal on 10-30-2024 AST [Catalytic activity/Vol] 15 U/L <38 [facility] MCV (mean corpuscular volume ) determinationOrdered By: Gila Bernal on 10-30-2024 MCV (RBC) [Entitic vol] 93.8 fL 80-94 [facility] Mean corpuscular hemoglobin (MCH) determinationOrdered By: Gila Bernal on 10-30-2024 MCH (RBC) [Entitic mass] 29.4 pg 27.0-32.0 [facility] Mean corpuscular hemoglobin concentration (MCHC) determinationOrdered By: Gila Bernal on 10-30-2024 MCHC (RBC) [Mass/Vol] 31.4 g/dL Low 32-36 [facility] Mean platelet volume determi nationOrdered By: Gila Bernal on 10-30-2024 Platelet mean volume (Bld) [Entitic vol] 9.1 fL 6.2-12.0 [facility] Monocyte percentageOrdered B y: Gila Bernal on 10-30-2024 Monocytes/100 WBC (Bld) 7.2 % 0-10 [facility] Neutrophil percentageOrdered By: Gila Bernal on 10-30-2024 Neutrophils/100 WBC (Bld) 77.5 % High 47-70 [facility] Nucleated red blood cell per centageOrdered By: Gila Bernal on 10-30-2024 Nucleated RBC/100 WBC (Bld) [Ratio] 0 % 0-5 [facility] Platelet countOrdered By: Rich Bernal on 10-30-2024 Platelets (Bld) [#/Vol] 177 10*3/uL 150-450 [facility] Potassium measurement (mass/ volume)Ordered By: Gila Bernal on 10-30-2024 Potassium (Unsp spec) [Mass/Vol] 4.5 mmol/L 3.3-5.1 [facility] RBC Auto (Bld) [#/Vol]Ordere d By: Gila Bernal on 10-30-2024 RBC (Bld) [#/Vol] 4.01 10*6/uL Low 4.6-6.2 [facility] Serum creatinine measurement (mass/volume)Ordered By: Gila Bernal on 10-30-2024 Creatinine [Mass/Vol] 3.22 mg/dL High 0.70-1.20 [facility] Serum globulin measurementOr dered By: Gila Bernal on 10-30-2024 Globulin (S) [Mass/Vol] 2.5 g/dL 2.2-4.2 [facility] Serum glucose measurement (m ass/volume)Ordered By: Gila Bernal on 10-30-2024 Glucose [Mass/Vol] 257 mg/dL High 70-99 [facility] Serum or plasma alanine martinez otransferase (ALT) measurementOrdered By: Gila Bernal on 10-30-2024 ALT [Catalytic activity/Vol] 9 U/L <47 [facility] Serum or plasma albumin zainab urement (mass/volume)Ordered By: Gila Bernal on 10-30-2024 Albumin [Mass/Vol] 4.6 g/dL 3.5-5.0 [facility] Serum or plasma albumin/glob ulin mass ratioOrdered By: Gila Bernal on 10-30-2024 Albumin/Globulin [Mass ratio] 1.8 {ratio} 0.9-2.4 [facility] Serum or plasma alkaline robert sphatase measurementOrdered By: Gila Bernal on 10-30-2024 ALP [Catalytic activity/Vol] 174 U/L High 40-129 [facility] Serum or plasma calcium zainab urement (mass/volume)Ordered By: Gila Bernal on 10-30-2024 Calcium [Mass/Vol] 9.3 mg/dL 7.6-11.0 [facility] Serum or plasma urea nitroge n measurement (mass/volume)Ordered By: Gila Bernal on 10-30-2024 Urea nitrogen [Mass/Vol] 20 mg/dL High 4-19 [facility] Sodium levelOrdered By: Mireille Bernal on 10-30-2024 Sodium [Moles/Vol] 135 mmol/L 133-145 [facility] Total proteinOrdered By: Chasity Bernal on 10-30-2024 Protein [Mass/Vol] 7.0 g/dL 5.9-8.4 [facility] White blood cell (WBC) count Ordered By: Gila Bernal on 10-30-2024 WBC (Bld) [#/Vol] 9.5 10*3/uL 4.4-11.0 [facility] .Auto Diffon 07-23-2024 Basophil, Absolute 0.0 10 3/mcL Normal 0.0-0.3 [facility] Comment on above: Performed By: #### G FR BMP #### [address] [address] Basophils/100 WBC (Bld) 0.1 % Normal 0.0-2.5 [facility] Comment on above: Performed By: #### G FR, BMP #### [facility] [address] [place] [address] Eosinophil, Absolute 0.0 10 3/mcL Normal 0.0-0.7 [facility] Comment on above: Performed By: #### G FR, BMP #### [facility] [address] [place] [address] Eosinophils/100 WBC (Bld) 0.0 % Normal 0.0-6.0 [facility] Comment on above: Performed By: #### G FR, BMP #### [facility] [address] [place] [address] Lymphocyte, Absolute 0.3 10 3/mcL Low 0.9-4.3 [facility] Comment on above: Performed By: #### G FR, BMP #### [facility] [address] [place] [address] Lymphocytes/100 WBC (Bld) 3.8 % Low 20.0-40.0 [facility] Comment on above: Performed By: #### G FR, BMP #### [address] [address] Monocyte, Absolute 0.1 10 3/mcL Normal 0.1-1.4 [facility] Comment on above: Performed By: #### G FR, BMP #### [address] [address] Monocytes/100 WBC (Bld) 0.8 % Low 2.0-13.0 [facility] Comment on above: Performed By: #### G FR, BMP #### [address] [address] Neutrophils/100 WBC (Bld) 95.3 % High 50.0-75.0 [facility] Comment on above: Performed By: #### G FR, BMP #### [address] [address] .GFRon 07-23-2024 GFR Non- 15 ml/min/1.73sqm Normal [facility] Comment on above: Result Comment: GFR [...] 15 mL/min/1.73 square meters Performed By: #### V ANCR #### [address] [address] GFR 18 ml/min/1.73sqm Normal [facility] Comment on above: Result Comment: GFR [...] 15 mL/min/1.73 square meters Performed By: #### V ANCR #### [address] [address] .NEUABSon 07-23-2024 Neutrophil, Absolute 8.5 10 3/mcL High 2.3-8.1 [facility] Comment on above: Performed By: #### Silvina [place] [facility] #### [address] [address] BMPon 07-23-2024 BUN/Creatinine Ratio 10.0 ratio Normal 10.0-22.0 [facility] Comment on above: Performed By: #### V ANCR #### [address] [address] Calcium [Mass/Vol] 9.3 mg/dL Normal 8.7-10.4 [facility] Comment on above: Performed By: #### V ANCR #### [address] [address] Chloride [Moles/Vol] 98 mmol/L Normal 98-110 [facility] Comment on above: Performed By: #### V ANCR #### [address] [address] CO2 [Moles/Vol] 28 mmol/L Normal 22-32 [facility] Comment on above: Performed By: #### V ANCR #### [address] [address] Creatinine [Mass/Vol] 4.28 mg/dL High 0.60-1.40 [facility] Comment on above: Result Comment: Test ing performed on Pianpian analyzer using enzymatic creatinine methodology. Performed By: #### V ANCR #### [address] [address] Electrolyte Balance 13.0 mEq/L Normal 4.0-15.0 [facility] Comment on above: Performed By: #### V ANCR #### [address] [address] Glucose [Mass/Vol] 161 mg/dL High 70-110 [facility] Comment on above: Performed By: #### V ANCR #### [address] [address] Potassium [Moles/Vol] 4.5 mmol/L Normal 3.5-5.0 [facility] Comment on above: Performed By: #### V ANCR #### [address] [address] Sodium [Moles/Vol] 139 mmol/L Normal 136-145 [facility] Comment on above: Performed By: #### V ANCR #### [address] [address] Urea nitrogen [Mass/Vol] 43.0 mg/dL High 8.0-22.0 [facility] Comment on above: Performed By: #### V ANCR #### [address] [address] CBCon 07-23-2024 Erythrocyte distribution width (RBC) [Ratio] 18.0 % High 11.5-15.5 [facility] Comment on above: Performed By: #### G FR, BMP #### [place] [address] Hematocrit (Bld) [Volume fraction] 33.7 % Low 40.0-52.0 [facility] Comment on above: Performed By: #### G FR, BMP #### [place] [address] Hgb 11.1 G/dL Low 13.0-17.5 [facility] Comment on above: Performed By: #### G FR, BMP #### [place] [address] MCH (RBC) [Entitic mass] 29.9 pg Normal 27.0-33.0 [facility] Comment on above: Performed By: #### G FR, BMP #### [place] [address] MCHC 32.9 G/dL Normal 32.0-36.0 [facility] Comment on above: Performed By: #### G FR, BMP #### [place] [address] MCV (RBC) [Entitic vol] 90.8 fL Normal 81.0-100.0 [facility] Comment on above: Performed By: #### Silvina FR, BMP #### [place] [address] Platelet 198 10 3/mcL Normal 150-450 [facility] Comment on above: Performed By: #### G FR, BMP #### [place] [address] Platelet mean volume (Bld) [Entitic vol] 6.4 fL Normal 6.4-10.5 [facility] Comment on above: Performed By: #### G FR, BMP #### [place] [address] RBC 3.71 10 6/mcL Low 4.50-6.00 [facility] Comment on above: Performed By: #### G FR, BMP #### [place] [address] WBC 8.9 10 3/mcL Normal 4.5-10.8 [facility] Comment on above: Performed By: #### G FR, BMP #### [facility] [address] [place] [address] LABORATORYOrdered By: Charissa Rollins on 07-23-2024 Glucose [Mass/Vol] 174 mg/dL High 70 - 110 mg/dL [facility] Work Phone: LABORATORYOrdered By: Roberto Ott on 07-23-2024 Glucose [Mass/Vol] 143 mg/dL High 70 - 110 mg/dL [facility] Work Phone: LABORATORYOrdered By: Gisselle Zhao on 07-23-2024 Glucose [Mass/Vol] 218 mg/dL High 70 - 110 mg/dL [facility] Work Phone: LABORATORYOrdered By: Maribell Mckeon on 07-23-2024 Blood Glucose Testing Reason Routine (07/23/24 8:14 AM) [facility] Work Phone: LABORATORYOrdered By: SYSTEM SYSTEM on 07-23-2024 Basophils [...] above: Interpretive Data: T esting performed on Pianpian analyzer using enzymatic creatinine methodology. Electrolyte Balance 13.0 mEq/L Normal 4.0 - 15 .0 mEq/L AH ADM SS Eosinophils (Bld) [#/Vol] 0.0 103/mcL Normal 0.0 - 0.7 10^3/mcL AH Workflow SS Eosinophils/100 WBC (Bld) 0.0 % Normal 0.0 - 6.0 % AH Workflow SS Erythrocyte distribution width (RBC) [Ratio] 18.0 % High 11.5 - 15.5 % Workflow SS GFR/1.73 sq M.predicted among blacks MDRD (S/P/Bld) [Vol rate/Area] 18 ml/min/1.73sqm Invalid Interpretation Code [employer] S Comment on above: Interpretive Data: [...] [Vol rate/Area] 15 ml/min/1.73sqm Invalid Interpretation Code [employer] Chemistry S Comment on above: Interpretive Data: [...] 33.7 % Low 40.0 - 52.0 % Workflow SS Hemoglobin (Bld) [Mass/Vol] 11.1 G/dL Low 13.0 - 17.5 G/dL Workflow SS Lymphocytes (Bld) [#/Vol] 0.3 103/mcL Low 0.9 - 4.3 10^3/mcL AH Workflow SS Lymphocytes/100 WBC (Bld) 3.8 % Low 20.0 - 40.0 % AH Workflow SS MCH (RBC) [Entitic mass] 29.9 [...] 139 mmol/L Normal 136 - 145 mEq/L ADM SS Urea nitrogen [Mass/Vol] 43.0 mg/dL High 8.0 - 22.0 mg/dL AH ADM SS Urea nitrogen/Creatinine [Mass ratio] 10.0 ratio Normal 10.0 - 22.0 ratio AH ADM SS WBC (Bld) [#/Vol] 8.9 103/mcL Normal 4.5 - 10.8 10^3/mcL AH Workflow SS .Auto Diffon 07-22-2024 Basophil, Absolute 0.0 10 3/mcL Normal 0.0-0.3 [facility] Comment on above: Performed By: #### A ALFONSO, MG, CBC, CMP, GFR, ADIFF, TROPHS #### [address] [address] Basophils/100 WBC (Bld) 0.3 % Normal 0.0-2.5 [facility] Comment on above: Performed By: #### A ALFONSO, MG, CBC, CMP, GFR, ADIFF, TROPHS #### [address] [address] Eosinophil, Absolute 0.1 10 3/mcL Normal 0.0-0.7 [facility] Comment on above: Performed By: #### A ALFONSO, MG, CBC, CMP, GFR, ADIFF, TROPHS #### [address] [address] Eosinophils/100 WBC (Bld) 0.5 % Normal 0.0-6.0 [facility] Comment on above: Performed By: #### A ALFONSO, MG, CBC, CMP, GFR, ADIFF, TROPHS #### [address] [address] Lymphocyte, Absolute 0.2 10 3/mcL Low 0.9-4.3 [facility] Comment on above: Performed By: #### A ALFONSO, MG, CBC, CMP, GFR, ADIFF, TROPHS #### [address] [address] Lymphocytes/100 WBC (Bld) 1.6 % Low 20.0-40.0 [facility] Comment on above: Performed By: #### A ALFONSO, MG, CBC, CMP, GFR, ADIFF, TROPHS #### [address] [address] Monocyte, Absolute 0.1 10 3/mcL Normal 0.1-1.4 [facility] Comment on above: Performed By: #### A ALFONSO, MG, CBC, CMP, GFR, ADIFF, TROPHS #### [address] [address] Monocytes/100 WBC (Bld) 0.9 % Low 2.0-13.0 [facility] Comment on above: Performed By: #### A ALFONSO, MG, CBC, CMP, GFR, ADIFF, TROPHS #### [address] [address] Neutrophils/100 WBC (Bld) 96.7 % High 50.0-75.0 [facility] Comment on above: Performed By: #### A ALFONSO, MG, CBC, CMP, GFR, ADIFF, TROPHS #### [address] [address] Basophil, Absolute 0.0 10 3/mcL Normal 0.0-0.2 [facility] Comment on above: Performed By: #### G IRMA [place], CBC, ADIFF, ANEU, BMP, TROPHS #### [address] [address] Basophils/100 WBC (Bld) 0.1 % Normal 0.0-2.5 [facility] Comment on above: Performed By: #### G IRMA [place], CBC, ADIFF, ANEU, BMP, TROPHS #### [address] [address] Eosinophil, Absolute 0.2 10 3/mcL Normal 0.0-0.7 [facility] Comment on above: Performed By: #### IRMA DIAZ, CBC, ADIFF, ANEU, BMP, TROPHS #### [address] [address] Eosinophils/100 WBC (Bld) 2.4 % Normal 0.0-7.0 [facility] Comment on above: Performed By: #### IRMA DIAZ, CBC, ADIFF, ANEU, BMP, TROPHS #### [address] [address] Lymphocyte, Absolute 0.9 10 3/mcL Normal 0.9-4.3 [facility] Comment on above: Performed By: #### IRMA DIAZ, CBC, ADIFF, ANEU, BMP, TROPHS #### [address] [address] Lymphocytes/100 WBC (Bld) 8.1 % Low 20.0-40.0 [facility] Comment on above: Performed By: #### G IRMA [place], CBC, ADIFF, ANEU, BMP, TROPHS #### [address] [address] Monocyte, Absolute 0.6 10 3/mcL Normal 0.1-1.4 [facility] Comment on above: Performed By: #### G , IRMA, CBC, ADIFF, ANEU, BMP, TROPHS #### [address] [address] Monocytes/100 WBC (Bld) 5.9 % Normal 2.0-13.0 [facility] Comment on above: Performed By: #### G , IRMA, CBC, ADIFF, ANEU, BMP, TROPHS #### [address] [address] Neutrophils/100 WBC (Bld) 83.2 % High 50.0-75.0 [facility] Comment on above: Performed By: #### IRMA DIAZ, CBC, ADIFF, ANEU, BMP, TROPHS #### [address] [address] .GFRon 07-22-2024 GFR 23 ml/min/1.73sqm [facility] Comment on above: Result Comment: GFR [...] Performed By: #### G FR, BMP #### [facility] [address] [place] [address] GFR Non- 19 ml/min/1.73sqm [facility] Comment on above: Result Comment: GFR [...] Performed By: #### G FR, BMP #### [address] [address] GFR Non- 8 ml/min/1.73sqm [facility] Comment on above: Result Comment: GFR [...] 15 mL/min/1.73 square meters Performed By: #### M RSAPCR #### [address] [address] GFR 10 ml/min/1.73sqm [facility] Comment on above: Result Comment: GFR [...] 15 mL/min/1.73 square meters Performed By: #### M RSAPCR #### [facility] [address] [place] [address] GFR Non- 8 ml/min/1.73sqm [facility] Comment on above: Result Comment: GFR [...] QUINTANA, CBC, ADIFF, ANEU, BMP, TROPHS #### [place] [address] [place], [place] [address] GFR 9 ml/min/1.73sqm [facility] Comment on above: Result Comment: GFR [...] square meters Performed By: #### G , IRMA, CBC, ADIFF, ANEU, BMP, TROPHS #### [address] [address] .MDWon 07-22-2024 Monocyte Distribution Width Not tested Normal 0.00-20.00 [facility] Comment on above: Result Comment: IRMA testing unable to be performed on [id number] instrumentation. Performed By: #### G , W, CBC, ADIFF, ANEU, BMP, TROPHS #### [address] [address] .NEUABSon 07-22-2024 Neutrophil, Absolute 12.0 10 3/mcL High 2.3-8.1 [facility] Comment on above: Performed By: #### A ALFONSO, MG, CBC, CMP, GFR, ADIFF, TROPHS #### [address] [address] Neutrophil, Absolute 9.6 10 3/mcL High 2.3-8.1 [facility] Comment on above: Performed By: #### G , IRMA, CBC, ADIFF, ANEU, BMP, TROPHS #### [address] [address] BMPon 07-22-2024 BUN/Creatinine Ratio 9.4 ratio Low 10.0-22.0 [facility] Comment on above: Performed By: #### Silvina FR, BMP #### [address] [address] Calcium [Mass/Vol] 10.0 mg/dL Normal 8.7-10.4 [facility] Comment on above: Performed By: #### Silvina FR, BMP #### [address] [address] Chloride [Moles/Vol] 96 mmol/L Low 98-110 [facility] Comment on above: Performed By: #### G FR, BMP #### [address] [address] CO2 [Moles/Vol] 28 mmol/L Normal 22-32 [facility] Comment on above: Performed By: #### Silvina FR, BMP #### [address] [address] Creatinine [Mass/Vol] 3.51 mg/dL High 0.60-1.40 [facility] Comment on above: Result Comment: Test ing performed on Pianpian analyzer using enzymatic creatinine methodology. Performed By: #### Silvina QU[place]NA BMP #### [address] [address] Electrolyte Balance 13.0 mEq/L Normal 4.0-15.0 [facility] Comment on above: Performed By: #### Silvina QU[place], BMP #### [address] [address] Glucose [Mass/Vol] 167 mg/dL High 70-110 [facility] Comment on above: Performed By: #### Silvina QU[place], BMP #### [address] [address] Potassium [Moles/Vol] 4.7 mmol/L Normal 3.5-5.0 [facility] Comment on above: Performed By: #### Silvina QU[place], BMP #### [address] [address] Sodium [Moles/Vol] 137 mmol/L Normal 136-145 [facility] Comment on above: Performed By: #### Silvina [place], BMP #### [address] [address] Urea nitrogen [Mass/Vol] 33.0 mg/dL High 8.0-22.0 [facility] Comment on above: Performed By: #### Silvina [place], BMP #### [address] [address] BUN/Creatinine Ratio 12 ratio Normal 7-27 [facility] Comment on above: Performed By: #### G , IRMA, CBC, ADIFF, ANEU, BMP, TROPHS #### [address] [address] Calcium [Mass/Vol] 9.0 mg/dL Normal 8.4-10.2 [facility] Comment on above: Performed By: #### Silvina QUIN[place], IRMA, CBC, ADIFF, ANEU, BMP, TROPHS #### [address] [address] Chloride [Moles/Vol] 94 mmol/L Low 98-107 [facility] Comment on above: Performed By: #### G IRMA [place], CBC, ADIFF, ANEU, BMP, TROPHS #### [address] [address] CO2 [Moles/Vol] 27 mmol/L Normal 22-29 [facility] Comment on above: Performed By: #### G IRMA [place], CBC, ADIFF, ANEU, BMP, TROPHS #### [address] [address] Creatinine [Mass/Vol] 7.55 mg/dL High 0.70-1.30 [facility] Comment on above: Result Comment: Test ing performed on [employer] Dim[employer] EXL analyzer using a modified kinetic Janell technique. Performed By: #### IRMA DIAZ, CBC, ADIFF, ANEU, BMP, TROPHS #### [address] [address] Electrolyte Balance 11.0 mEq/L Normal 4.0-15.0 [facility] Comment on above: Performed By: #### IRMA DIAZ, ARMINDA, ADIFF, ANEU, BMP, TROPHS #### [address] [address] Glucose [Mass/Vol] 117 mg/dL High 70-105 [facility] Comment on above: Performed By: #### IRMA DIAZ, CBC, ADIFF, ANEU, BMP, TROPHS #### [address] [address] Potassium [Moles/Vol] 7.2 mmol/L Critically abnormal 3.5-5.1 [facility] Comment on above: Performed By: #### IRMA DIAZ, CBC, ADIFF, ANEU, BMP, TROPHS #### [address] [address] Sodium [Moles/Vol] 132 mmol/L Low 136-145 [facility] Comment on above: Performed By: #### IRMA DIAZ, CBC, ADIFF, ANEU, BMP, TROPHS #### [place] [address] [place], [place] [address] Urea nitrogen [Mass/Vol] 88 mg/dL High 7-18 [facility] Comment on above: Performed By: #### G IRMA [place], CBC, ADIFF, ANEU, BMP, TROPHS #### [place] [id number] [place], [place] [address] CBCon 07-22-2024 Erythrocyte distribution width (RBC) [Ratio] 19.3 % High 11.5-15.5 [facility] Comment on above: Performed By: #### A ALFONSO, MG, CBC, CMP, GFR, ADIFF, TROPHS #### [address] [address] Hematocrit (Bld) [Volume fraction] 33.6 % Low 40.0-52.0 [facility] Comment on above: Performed By: #### A ALFONSO, MG, CBC, CMP, GFR, ADIFF, TROPHS #### [place] [id number] Hgb 11.2 G/dL Low 13.0-17.5 [facility] Comment on above: Performed By: #### A ALFONSO, MG, CBC, CMP, GFR, ADIFF, TROPHS #### [address] [address] MCH (RBC) [Entitic mass] 30.6 pg Normal 27.0-33.0 [facility] Comment on above: Performed By: #### A ALFONSO, MG, CBC, CMP, GFR, ADIFF, TROPHS #### [place] [id number] MCHC 33.2 G/dL Normal 32.0-36.0 [facility] Comment on above: Performed By: #### A ALFONSO, MG, CBC, CMP, GFR, ADIFF, TROPHS #### [place] [id number] MCV (RBC) [Entitic vol] 92.2 fL Normal 81.0-100.0 [facility] Comment on above: Performed By: #### A ALFONSO, MG, CBC, CMP, GFR, ADIFF, TROPHS #### [address] [address] Platelet 232 10 3/mcL Normal 150-450 [facility] Comment on above: Performed By: #### A ALFONSO, MG, CBC, CMP, GFR, ADIFF, TROPHS #### [address] [address] Platelet mean volume (Bld) [Entitic vol] 6.6 fL Normal 6.4-10.5 [facility] Comment on above: Performed By: #### A ALFONSO, MG, CBC, CMP, GFR, ADIFF, TROPHS #### [address] [address] RBC 3.65 10 6/mcL Low 4.50-6.00 [facility] Comment on above: Performed By: #### A ALFONSO, MG, CBC, CMP, GFR, ADIFF, TROPHS #### [address] [address] WBC 12.4 10 3/mcL High 4.5-10.8 [facility] Comment on above: Performed By: #### A ALFONSO, MG, CBC, CMP, GFR, ADIFF, TROPHS #### [place] [address] Erythrocyte distribution width (RBC) [Ratio] 16.5 % High 11.5-15.5 [facility] Comment on above: Performed By: #### G IRMA [place], CBC, ADIFF, ANEU, BMP, TROPHS #### [address] [address] Hematocrit (Bld) [Volume fraction] 31.1 % Low 40.0-52.0 [facility] Comment on above: Performed By: #### IRMA DIAZ, CBC, ADIFF, ANEU, BMP, TROPHS #### [address] [address] Hgb 10.4 G/dL Low 13.0-17.5 [facility] Comment on above: Performed By: #### IRMA DIAZ, CBC, ADIFF, ANEU, BMP, TROPHS #### [address] [address] MCH (RBC) [Entitic mass] 30.3 pg Normal 27.0-33.0 [facility] Comment on above: Performed By: #### G IRMA QU[place], CBC, ADIFF, ANEU, BMP, TROPHS #### [address] [address] MCHC 33.6 G/dL Normal 32.0-36.0 [facility] Comment on above: Performed By: #### G IRMA QU[place], CBC, ADIFF, ANEU, BMP, TROPHS #### [address] [address] MCV (RBC) [Entitic vol] 90.1 fL Normal 81.0-100.0 [facility] Comment on above: Performed By: #### IRMA DIAZ, CBC, ADIFF, ANEU, BMP, TROPHS #### [address] [address] Platelet 223 10 3/mcL Normal 150-450 [facility] Comment on above: Performed By: #### IRMA DIAZ, CBC, ADIFF, ANEU, BMP, TROPHS #### [address] [address] Platelet mean volume (Bld) [Entitic vol] 6.6 fL Normal 6.4-10.5 [facility] Comment on above: Performed By: #### IRMA DIAZ, CBC, ADIFF, ANEU, BMP, TROPHS #### [address] [address] RBC 3.45 10 6/mcL Low 4.50-6.00 [facility] Comment on above: Performed By: #### IRMA DIAZ, CBC, ADIFF, ANEU, BMP, TROPHS #### [address] [address] WBC 11.6 10 3/mcL High 4.5-10.8 [facility] Comment on above: Performed By: #### G FR, MDW, CBC, ADIFF, ANEU, BMP, TROPHS #### [place] [id number] [place], [place] [address] [facility] Albumin Level 3.7 G/dL Normal 3.2-4.8 [facility] Comment on above: Performed By: #### M RSAPCR #### [address] [address] Albumin/Globulin [Mass ratio] 1.0 {ratio} Normal 0.9-1.6 [facility] Comment on above: Performed By: #### M RSAPCR #### [address] [address] ALP [Catalytic activity/Vol] 192 U/L High 38-126 [facility] Comment on above: Performed By: #### M RSAPCR #### [address] [address] ALT [Catalytic activity/Vol] 12 U/L Normal 12-55 [facility] Comment on above: Performed By: #### M RSAPCR #### [address] [address] AST [Catalytic activity/Vol] 11 U/L Normal 8-34 [facility] Comment on above: Performed By: #### M RSAPCR #### [address] [address] Bili Total 0.30 mg/dL Normal 0.20-1.20 [facility] Comment on above: Result Comment: Use of this assay is not recommended for patients undergoing treatment with eltrombopag due to the potential for falsely elevated results. Performed By: #### M RSAPCR #### [address] [address] BUN/Creatinine Ratio 11.9 ratio Normal 10.0-22.0 [facility] Comment on above: Performed By: #### M RSAPCR #### [address] [address] Calcium [Mass/Vol] 9.7 mg/dL Normal 8.7-10.4 [facility] Comment on above: Performed By: #### M RSAPCR #### [address] [address] Chloride [Moles/Vol] 92 mmol/L Low 98-110 [facility] Comment on above: Performed By: #### M RSAPCR #### [address] [address] CO2 [Moles/Vol] 25 mmol/L Normal 22-32 [facility] Comment on above: Performed By: #### M RSAPCR #### [address] [address] Creatinine [Mass/Vol] 7.17 mg/dL High 0.60-1.40 [facility] Comment on above: Result Comment: Test ing performed on Pianpian analyzer using enzymatic creatinine methodology. Performed By: #### M RSAPCR #### [address] [address] Electrolyte Balance 16.0 mEq/L High 4.0-15.0 [facility] Comment on above: Performed By: #### M RSAPCR #### [address] [address] Globulin 3.7 G/dL Normal 1.5-3.8 [facility] [facility] Comment on above: Performed By: #### M RSAPCR #### [address] [address] Glucose [Mass/Vol] 164 mg/dL High 70-110 [facility] MAIN Comment on above: Performed By: #### M RSAPCR #### [address] [address] Potassium [Moles/Vol] 7.1 mmol/L Critically abnormal 3.5-5.0 [facility] MAIN Comment on above: Performed By: #### M RSAPCR #### [address] [address] Sodium [Moles/Vol] 133 mmol/L Low 136-145 [facility] MAIN Comment on above: Performed By: #### M RSAPCR #### [address] [address] Total Protein 7.4 G/dL Normal 5.7-8.2 [facility] MAIN Comment on above: Performed By: #### M RSAPCR #### [facility] [address] [place] [address] Urea nitrogen [Mass/Vol] 85.0 mg/dL High 8.0-22.0 [facility] Comment on above: Performed By: #### M RSAPCR #### [facility] [address] [place] [address] CVFLURVon 07-22-2024 FLU A PCR Negative Normal Negative [facility] Comment on above: Performed By: #### C VFLURV #### [place] [address] FLU B PCR Negative Normal Negative [facility] Comment on above: Performed By: #### C VFLURV #### [place] [address] RSV PCR Negative Normal Negative [facility] Comment on above: Performed By: #### C VFLURV #### [place] [address] SARS-CoV-2 (COVID-19) RNA GLENN+probe Ql (Unsp spec) Negative Normal Negative [facility] Comment on above: Result Comment: Resu [...] inaccurate positive results. Performed By: #### C VFLURV #### [address] [address] HEPACon 07-22-2024 Hep A IgM Ab Non-Reactive Normal Non-Reactiv e [facility] MAIN Comment on above: Performed By: #### M RSAPCR #### [place] [address] Hep A IgM Ab Int [facility] MAIN Comment on above: Result Comment: No s erological evidence of a current Hepatitis A infection. See Interp Performed By: #### M RSAPCR #### [place] [address] Hep B Core IgM Ab Non-Reactive Normal Non-Reacti v [facility] MAIN Comment on above: Performed By: #### M RSAPCR #### [place] [address] Hep B Core IgM Ab Int [facility] MAIN Comment on above: Result Comment: Samp les with a value < 0.80 Index are considered nonreactive (negative) for IgM antibodies to hepatitis B core antigen. See Interp Performed By: #### M RSAPCR #### [place] [address] Hep B Surf Ag Non-Reactive Normal Non-Reactiv [facility] MAIN Comment on above: Performed By: #### M RSAPCR #### [place] [address] Hep C Ab Non-Reactive Normal Non-Reactiv [facility] MAIN Comment on above: Performed By: #### M RSAPCR #### [place] [address] Hep C Ab Int [facility] MAIN Comment on above: Result Comment: Nonr eactive: Samples with a value < 0.80 are considered nonreactive (negative) for antibodies to HCV. A negative test result does not exclude the possibility of exposure to or infection with HCV. HCV antibodies may be undetectable in some stages of the infection and in some clinical conditions. See Interp Performed By: #### M RSAPCR #### [place] [address] LABORATORYOrdered By: SYSTEM SYSTEM on 07-22-2024 Calcium [Mass/Vol] 10.0 mg/dL Normal 8.7 - 10. 4 mg/dL AH ADM SS Chloride [Moles/Vol] 96 mmol/L Low 98 - 11 0 mEq/L AH ADM SS CO2 [Moles/Vol] 28 mmol/L Normal 22 - 32 mEq/L ADM SS Creatinine [Mass/Vol] 3.51 mg/dL High 0.60 - 1.40 mg/dL ADM SS Comment on above: Interpretive Data: T esting performed on Pianpian analyzer using enzymatic creatinine methodology. Electrolyte Balance 13.0 mEq/L Normal 4.0 - 15 .0 mEq/L ADM SS GFR/1.73 sq M.predicted among blacks MDRD (S/P/Bld) [Vol rate/Area] 23 ml/min/1.73sqm Invalid Interpretation Code [employer] Chemistry S Comment on above: Interpretive Data: [...] [Vol rate/Area] 19 ml/min/1.73sqm Invalid Interpretation Code [employer] Chemistry S Comment on above: Interpretive Data: [...] 167 mg/dL High 70 - 110 mg/dL ADM SS Potassium [Moles/Vol] 4.7 mmol/L Normal 3.5 - 5.0 mEq/L AH ADM SS Sodium [Moles/Vol] 137 mmol/L Normal 136 - 145 mEq/L AH ADM SS Urea nitrogen [Mass/Vol] 33.0 mg/dL High 8.0 - 22.0 mg/dL ADM SS Urea nitrogen/Creatinine [Mass ratio] 9.4 [...] 12 U/L Normal 12 - 55 U/L ADM SS AST [Catalytic activity/Vol] 11 U/L Normal 8 - 34 U/L ADM SS Basophils (Bld) [#/Vol] 0.0 103/mcL Normal 0.0 - 0.3 10^3/mcL Workflow SS Basophils/100 WBC (Bld) 0.3 % Normal 0.0 - 2.5 % Workflow SS Bilirubin [Mass/Vol] 0.30 mg/dL Normal 0.20 - 1.20 mg/dL ADM SS Comment on above: Interpretive [...] above: Interpretive Data: T esting performed on Pianpian analyzer using enzymatic creatinine methodology. Electrolyte Balance [...] [Vol rate/Area] 10 ml/min/1.73sqm Invalid Interpretation Code Chemistry S Comment on above: Interpretive Data: [...] [Vol rate/Area] 8 ml/min/1.73sqm Invalid Interpretation Code [employer] Chemistry S Comment on above: Interpretive Data: [...] 33.6 % Low 40.0 - 52.0 % Workflow SS Hemoglobin (Bld) [Mass/Vol] 11.2 G/dL Low 13.0 - 17.5 G/dL AH Workflow SS Lymphocytes (Bld) [#/Vol] 0.2 103/mcL Low 0.9 - 4.3 10^3/mcL AH Workflow SS Lymphocytes/100 WBC (Bld) 1.6 % Low 20.0 - 40.0 % Workflow SS Magnesium [Mass/Vol] 3.3 mg/dL High 1.6 - 2 .4 mg/dL ADM SS MCH (RBC) [Entitic mass] 30.6 pg Normal 27.0 - 33.0 pg Workflow SS MCHC 33.2 G/dL Normal 32.0 - 36.0 G/dL Workflow SS MCV (RBC) [Entitic vol] 92.2 fL Normal 81.0 - 100.0 fL Workflow SS Monocytes (Bld) [#/Vol] 0.1 103/mcL Normal 0.1 - 1.4 10^3/mcL AH Workflow SS Monocytes/100 WBC (Bld) 0.9 % Low 2.0 - 13.0 % Workflow SS Neutrophils (Bld) [#/Vol] 12.0 103/mcL High 2.3 - 8.1 10^3/mcL AH Workflow SS Neutrophils/100 WBC (Bld) 96.7 % High 50.0 - 75.0 % Workflow SS Platelet mean volume (Bld) [Entitic vol] 6.6 fL Normal 6.4 - 10.5 fL Workflow SS Platelets (Bld) [#/Vol] 232 103/mcL Normal 150 - 450 10^3/mcL AH Workflow SS Potassium [Moles/Vol] 7.1 mmol/L Invalid Interpretation Code 3.5 - 5.0 mEq/L ADM SS Protein [Mass/Vol] 7.4 G/dL Normal 5.7 - 8.2 G/dL ADM SS RBC (Bld) [#/Vol] 3.65 106/mcL Low 4.50 - 6.0 0 10^6/mcL AH Workflow SS Sodium [Moles/Vol] 133 mmol/L Low 136 - 145 mEq/L ADM SS Troponin I.cardiac DL <= 0.01 ng/mL [Mass/Vol] 28 ng/L Normal 0 - 54 ng/L AH ADM SS Comment on above: Interpretive Data: High Sensitive Troponin I Reference Ranges: Female: 0-34 ng/L Male: 0-54 ng/L Testing performed on [employer] analyzer using direct chemiluminescent technology. Urea nitrogen [...] ng/L Male: 0-76 ng/L Testing performed on [employer] using a homogeneous sandwich chemiluminescent immunoassay based on Degreed technology. Urea nitrogen [Mass/Vol] 88 mg/dL High 7 - 18 mg/dL AO ADM SS Urea nitrogen/Creatinine [Mass ratio] 12 ratio Normal 7 - 27 ratio AO ADM SS WBC (Bld) [#/Vol] 11.6 103/mcL High 4.5 - 10.8 10^3/mcL AO Workflow SS LABORATORYOrdered By: Deonna Urban on 07-22-2024 HAV IgM IA Ql Non-Reactive (07/22/24 9:07 AM) Normal Non-Reactiv e AH ADM SS HAV IgM IA Ql No serological evidence of a current Hepatitis A infection. Invalid Interpretation Code Chemistry S HBV core IgM IA Ql Non-Reactive (07/22/24 9:07 AM) Normal Non-Reactiv e AH ADM SS HBV core IgM IA Ql Samples with a value < 0.80 Index are considered nonreactive (negative) for IgM antibodies to hepatitis B core antigen. Invalid Interpretation Code Chemistry S HBV surface Ag IA Ql Non-Reactive (07/22/24 9:07 AM) Normal Non-Reactiv e AH ADM SS HCV Ab IA Ql Non-Reactive (07/22/24 9:07 AM) Normal Non-Reactiv e AH ADM SS HCV Ab IA Ql [...] Glucose Testing Reason Routine (07/22/24 8:11 AM) [facility] Work Phone: LABORATORYOrdered By: William Hayward on 07-22-2024 Blood Glucose Testing Reason Routine (07/22/24 3:45 AM) [place] Work Phone: Glucose [Mass/Vol] 117 mg/dL High 70 - 110 mg/dL [place] Work Phone: LABORATORYOrdered By: Elva Phillips on 07-22-2024 Natriuretic peptide.B prohormone N-Terminal [Mass/Vol] pg/mL High 0 - 125 pg/mL AO Chemistry S FLUAV RNA GLENN+probe Ql (Resp) Negative (07/22/24 2:36 AM) Normal Negative AO Auto Urine SS FLUBV RNA GLENN+probe Ql (Resp) Negative (07/22/24 2:36 AM) Normal Negative AO Auto Urine SS Monocyte distribution width Auto (Bld) [Entitic vol] Not tested 1 (07/22/24 2:36 AM) Normal 0.00 - 20.00 AO Hematology S Comment on above: Result Comment: MDW testing unable to be performed on [id number] instrumentation. RSV RNA GLENN+probe Ql (Resp) Negative [...] 07-22-2024 Magnesium [Mass/Vol] 3.3 mg/dL High 1.6-2.4 [facility] MAIN Comment on above: Performed By: #### A ALFONSO, MG, CBC, CMP, GFR, ADIFF, TROPHS #### [facility] [address] [place] [address] Magnesium [Mass/Vol] 3.2 mg/dL High 1.8-2.4 [facility] Comment on above: Performed By: #### M G #### [address] [address] PBNPon 07-22-2024 N-Terminal proBNP >[address] High 0-125 [facility] Comment on above: Performed By: #### C VFLURV #### [address] [address] TROPHSon 07-22-2024 High Sensitivity Troponin I 28 ng/L Normal 0-54 [facility] MAIN Comment on above: Result Comment: High Sensitive Troponin I Reference Ranges: Female: 0-34 ng/L Male: 0-54 ng/L Testing performed on [employer] IM analyzer using direct chemiluminescent technology. Performed By: #### A ALFONSO, MG, CBC, CMP, GFR, ADIFF, TROPHS #### [facility] [address] [place] [address] High Sensitivity Troponin I 27 ng/L Normal 0-76 [facility] Comment on above: Result Comment: High Sensitive Troponin I Reference Ranges: Female: 0-51 ng/L Male: 0-76 ng/L Testing performed on [employer] using a homogeneous sandwich chemiluminescent immunoassay based on Degreed technology. Performed By: #### G FR, MDW, CBC, ADIFF, ANEU, BMP, TROPHS #### [facility] [address] [place], [place] [address] XR CHEST 1 VIEWon 07-22-2024 XR CHEST [...] 07/22/2024 3:00:32 AM Ordering Provider: KIZZY MEDEROS [facility] 12 Lead EKGon 02-09-2024 12 Lead EKG [facility] Cardiovascular Services [address] [place] [address] 12 Lead EKG 02/09/24 1529 MR#: [id number] Acct: [id number] Name: AGUSTO MONSALVE Rep #: [id number] : 1975 48 From: Santos Posey MD [...] Abnormal ECG Confirmed by GIANNI TO, AFUA ([id number]), editor book MOHAMUD RIVERA ([id number]) on 02/11/2024 2:27:40 PM Referred By: BB/WOOD Confirmed By:DANIELA POSEY MD 02/11/24 1427 Date Santos Posey MD CC: COUNTY ADMINISTRATOR-Garrett Knight; Dr. Bella Oneal MD; Dr. Jason Morris MD Signed Normal [facility] Basic Metabolic Profile (BMP )on 02-09-2024 BUN/CRE 9.2 RATIO Low 10-20 [facility] Comment on above: Performed By: #### L 100.0100, L500.2500 #### [facility] [address] [facility] [place], [address] CA,Total 8.5 mg/dL Normal 8.5-10.1 [facility] Comment on above: Performed By: #### L 100.0100, L500.2500 #### [facility] [address] [facility] [place], [address] Chloride [Moles/Vol] 94 mmol/L Low 98-107 [facility] Comment on above: Performed By: #### L 100.0100, L500.2500 #### [facility] [address] [facility] [place], [address] CO2 [Moles/Vol] 23.0 mmol/L Normal 21.0-32.0 [facility] Comment on above: Performed By: #### L 100.0100, L500.2500 #### [facility] [address] [place], [address] Creatinine [Mass/Vol] 4.67 mg/dL High 0.70-1.30 [facility] Comment on above: Result Comment: The validity of the calculated GFR GFRAA in patients over 70 years has not been determined. Clinical correlation is essential. Performed By: #### L 100.0100, L500.2500 #### [facility] [address] [place], [address] ECRCL 19.70 ml/min Normal [facility] Comment on above: Performed By: #### L 100.0100, L500.2500 #### [facility] [address] [place], [address] EST GFR - AA 17 mL/min Low >60 [facility] Comment on above: Result Comment: Afri can Belarusian GFR Calc Performed By: #### L 100.0100, L500.2500 #### [facility] [address] [place], [address] GAP 13 Normal 5-15 [facility] Comment on above: Performed By: #### L 100.0100, L500.2500 #### [facility] [address] [place], [address] GFR/1.73 sq M.predicted among non-blacks MDRD (S/P/Bld) [Vol rate/Area] 14 mL/min/{1.73_m2} Low >60 [facility] Comment on above: Result Comment: Non- GFR Calc Performed By: #### L 100.0100, L500.2500 #### [facility] [address] [place], [address] Glucose [Mass/Vol] 115 mg/dL High 74-106 [facility] Comment on above: Result Comment: Fast ing Glucose result from 100 to 125 mg/dL suggests IMPAIRED HOMEOSTASIS per A.D.A. criteria. Performed By: #### L 100.0100, L500.2500 #### [facility] [address] [place], [address] Potassium [Moles/Vol] 4.0 mmol/L Normal 3.5-5.1 [facility] Comment on above: Performed By: #### L 100.0100, L500.2500 #### [facility] [address] [place], [address] Sodium [Moles/Vol] 130 mmol/L Low 136-145 [facility] Comment on above: Performed By: #### L 100.0100, L500.2500 #### [facility] [address] [place], [address] Urea nitrogen [Mass/Vol] 43 mg/dL High 7-18 [facility] Comment on above: Performed By: #### L 100.0100, L500.2500 #### [facility] [address] [place], [address] CBC W/Diff, Automatedon 07-2 -2023 Absolute Lymph 0.97 X10 3/uL Normal 0.83-4.51 [facility] Comment on above: Performed By: #### L 100.0100, L500.2500 #### [facility] [address] [place], [address] Absolute Neut 5.2 X10 3/uL Normal 2.0-7.7 [facility] Comment on above: Performed By: #### L 100.0100, L500.2500 #### [facility] [address] [place], [address] Basophils/100 WBC (Bld) 0.6 % Normal 0-1 [facility] Comment on above: Performed By: #### L 100.0100, L500.2500 #### [facility] [address] [place], [address] Eosinophils/100 WBC (Bld) 1.5 % Normal 0-5 [facility] Comment on above: Performed By: #### L 100.0100, L500.2500 #### [facility] [address] [place], [address] Erythrocyte distribution width (RBC) [Ratio] 19.2 % High 11.6-14.6 [facility] Comment on above: Performed By: #### L 100.0100, L500.2500 #### [facility] [address] [place], [address] Hematocrit (Bld) [Volume fraction] 25.1 % Low 40-54 [facility] Comment on above: Performed By: #### L 100.0100, L500.2500 #### [facility] [address] [place], [address] Hemoglobin (Bld) [Mass/Vol] 8.1 g/dL Low 13.0-16.5 [facility] Comment on above: Performed By: #### L 100.0100, L500.2500 #### [facility] [address] [place], [address] IG% 0.300 Normal 0.0-0.9 [facility] Comment on above: Result Comment: IG% - Immature Granulocytes (promyelocytes, myelocytes and metamyelocytes) > 1% indicates that a LEFT SHIFT is Present. Performed By: #### L 100.0100, L500.2500 #### [facility] [address] [place], [address] Lymphocytes/100 WBC (Bld) 14.6 % Low 19-41 [facility] Comment on above: Performed By: #### L 100.0100, L500.2500 #### [facility] [address] [place], [address] MCH (RBC) [Entitic mass] 27.6 pg Normal 27.0-32.0 [facility] Comment on above: Performed By: #### L 100.0100, L500.2500 #### [facility] [address] [place], [address] MCHC (RBC) [Mass/Vol] 32.3 g/dL Normal 32-36 [facility] Comment on above: Performed By: #### L 100.0100, L500.2500 #### [facility] [address] [place], [address] MCV (RBC) [Entitic vol] 85.4 fL Normal 80-94 [facility] Comment on above: Performed By: #### L 100.0100, L500.2500 #### [facility] [address] [place], [address] Monocytes/100 WBC (Bld) 5.6 % Normal 0-10 [facility] Comment on above: Performed By: #### L 100.0100, L500.2500 #### [facility] [address] [place], [address] Neutrophils/100 WBC (Bld) 77.4 % High 47-70 [facility] Comment on above: Performed By: #### L 100.0100, L500.2500 #### [facility] [address] [place], [address] Nucleated RBC (Bld) [#/Vol] 0 10*3/uL Normal 0-5 [facility] Comment on above: Performed By: #### L 100.0100, L500.2500 #### [facility] [address] [place], [address] Platelet mean volume (Bld) [Entitic vol] 8.7 fL Normal 6.2-12.0 [facility] Comment on above: Performed By: #### L 100.0100, L500.2500 #### [facility] [address] [place], [address] Platelets (Bld) [#/Vol] 194 10*3/uL Normal 150-450 [facility] Comment on above: Performed By: #### L 100.0100, L500.2500 #### [facility] [address] [place], [address] RBC (Bld) [#/Vol] 2.94 10*6/uL Low 4.6-6.2 [facility] Comment on above: Performed By: #### L 100.0100, L500.2500 #### [facility] [address] [place], [address] RDW SD 60.3 fl High 35.1-43.9 [facility] Comment on above: Performed By: #### L 100.0100, L500.2500 #### [facility] [address] [place], [address] WBC (Bld) [#/Vol] 6.7 10*3/uL Normal 4.4-11.0 [facility] Comment on above: Performed By: #### L 100.0100, L500.2500 #### [facility] [address] [place], [address] Chest 1 View (Portable)on Chest 1 View (Portable) [facility] Imaging Services [address] [place] [address] Chest 1 View (Portable) MR#: [id number] Acct: [id number] Name: AGUSTO MONSALVE Rep #: [id number] : 1975 M 48 From: Santana Saab MD PCP: Dr. Bella Oneal MD Status: REG ER Study: Chest 1 View (Portable) Date of Exam: 02/09/24 Exam# [id number] Ordering Dr: Benny Knight COUNTY ADMINISTRATOR-C [id number] STUDY: X-RAY CHEST REASON FOR EXAM: Male, [...] 16:29 EDT Reading Location ID and State: [address] [place] [address] Tel , Service support , CC: DARIEN Knight; Dr. Bella Oneal MD Clinical Training Coordinator: Signed Normal [facility] Emergency Department Summary on 02-09-2024 Emergency Department Summary [facility] Medical Records Department [address] [place] [id number] Emergency Department Summary 02/09/24 MR#: [id number] Acct: [id number] Name: AGUSTO MONSALVE Rep #: [id number] : 1975 48 From: Benny LEDEZMA PCP: Dr. 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 Patient is a originally from here however lived in [place] from 2020 until 3 months ago. Patient was in a snf down there. He wanted to do something different so he got out of the snf and came here, and he thinks that [...] evaluation. Denies any fevers or chills. [facility] Medical History GERD (gastroesophageal reflux disease) Cataracts, [...] ea 01/09/24 Unknown Rx (FreeStyle Bianca 2 [place]) flash glucose sensor (FreeStyle #1 ea 01/09/24 [...] arteriovenous (AV) (more content not included)... Normal [facility] M100.678on 02-09-2024 M100.678 SARS-CoV-2 (COVID 19 ) Negative INFLUENZA A Negative INFLUENZA B Negative RSV PCR Negative Normal [facility] Comment on above: Performed By: #### L 100.0100, L500.4050 #### [facility] [address] [place], [address] Urinalysis, Completeon 02-08 BACTERIA Normal None Seen [facility] Comment on above: Order Comment: COLLE CTOR TO SPECIFY Result Comment: Canc elled via OM: MD Ordered Performed By: #### L 100.0100, L500.4050 #### [facility] [address] [place], [address] BILIRUBIN URINE Normal Negative [facility] Comment on above: Order Comment: COLLE CTOR TO SPECIFY Result Comment: Canc elled via OM: MD Ordered Performed By: #### L 100.0100, L500.4050 #### [facility] [address] [place], [address] Clarity (U) Normal Clear [facility] Comment on above: Order Comment: COLLE CTOR TO SPECIFY Result Comment: Canc elled via OM: MD Ordered Performed By: #### L 100.0100, L500.4050 #### [facility] [address] [place], [address] Color (U) Normal Yellow [facility] Comment on above: Order Comment: COLLE CTOR TO SPECIFY Result Comment: Canc elled via OM: MD Ordered Performed By: #### L 100.0100, L500.4050 #### [facility] [address] [place], [address] EPI,SQUAMOUS Normal 0-5 [facility] Comment on above: Order Comment: COLLE CTOR TO SPECIFY Result Comment: Canc elled via OM: MD Ordered Performed By: #### L 100.0100, L500.4050 #### [facility] [address] [place], [address] GLUCOSE, UR Normal Normal [facility] Comment on above: Order Comment: COLLE CTOR TO SPECIFY Result Comment: Canc elled via OM: MD Ordered Performed By: #### L 100.0100, L500.4050 #### [facility] [address] [place], [address] KETONE UR Normal Negative [facility] Comment on above: Order Comment: COLLE CTOR TO SPECIFY Result Comment: Canc elled via OM: MD Ordered Performed By: #### L 100.0100, L500.4050 #### [facility] [address] [place], [address] LEUK ESTERASE Normal Negative [facility] Comment on above: Order Comment: COLLE CTOR TO SPECIFY Result Comment: Canc elled via OM: MD Ordered Performed By: #### L 100.0100, L500.4050 #### [facility] [address] [place], [address] Mucus Ql (Urine sed) Normal [facility] Comment on above: Order Comment: COLLE CTOR TO SPECIFY Result Comment: Canc elled via OM: MD Ordered Performed By: #### L 100.0100, L500.4050 #### [facility] [address] [place], [address] Nitrite Ql (U) Normal Negative [facility] Comment on above: Order Comment: COLLE CTOR TO SPECIFY Result Comment: Canc elled via OM: MD Ordered Performed By: #### L 100.0100, L500.4050 #### [facility] [address] [place], [address] OCCULT BLOOD-UR Normal Negative [facility] Comment on above: Order Comment: COLLE CTOR TO SPECIFY Result Comment: Canc elled via OM: MD Ordered Performed By: #### L 100.0100, L500.4050 #### [facility] [address] [place], [address] pH UR Normal 5.0 - 8.0 [facility] Comment on above: Order Comment: COLLE CTOR TO SPECIFY Result Comment: Canc elled via OM: MD Ordered Performed By: #### L 100.0100, L500.4050 #### [facility] [address] [place], [address] PROT DIPSTX Normal Negative [facility] Comment on above: Order Comment: COLLE CTOR TO SPECIFY Result Comment: Canc elled via OM: MD Ordered Performed By: #### L 100.0100, L500.4050 #### [facility] [address] [place], [address] RBC Normal 0-5 [facility] Comment on above: Order Comment: COLLE CTOR TO SPECIFY Result Comment: Canc elled via OM: MD Ordered Performed By: #### L 100.0100, L500.4050 #### [facility] [address] [place], [address] SP.GR. DIPSTX Normal 1.002-1.030 [facility] Comment on above: Order Comment: COLLE CTOR TO SPECIFY Result Comment: Canc elled via OM: MD Ordered Performed By: #### L 100.0100, L500.4050 #### [facility] [address] [place], [address] UR Preservative Normal [facility] Comment on above: Order Comment: COLLE CTOR TO SPECIFY Result Comment: Canc elled via OM: MD Ordered Performed By: #### L 100.0100, L500.4050 #### [facility] [address] [place], [address] UROBILI Normal Normal [facility] Comment on above: Order Comment: COLLE CTOR TO SPECIFY Result Comment: Canc elled via OM: MD Ordered Performed By: #### L 100.0100, L500.4050 #### [facility] [address] [place], [address] WBC Normal 0-5 [facility] Comment on above: Order Comment: COLLE CTOR TO SPECIFY Result Comment: Canc elled via OM: MD Ordered Performed By: #### L 100.0100, L500.4050 #### [facility] [address] [place], [address] Internal Medicine Office Vis iton 01-23-2024 Internal Medicine Office Visit [facility] [address] [place] [address] [place] [address] OFFICE VISIT Date of Service: 01/23/24 MR#: [id number] Acct: [id number] Name: AGUSTO MONSALVE Zahra Rep #: [id number] : 1975 Provider: DAIREN anderson Age/Sex: 48/M Location: [facility] [place] Status: Signed Intake Vital Signs 01/21/24 11:59 01/23/24 12:46 Height 0 in BP 122/72 H Blood Pressure Location Lt brachial Position Sitting Respiration 16 Pulse 84 Pulse Source Monitor Temp 97.1 F L Temp Source Temporal Pulse Oximetry (%) 98 Oxygen Delivery Method room air Intake Visit Reasons: acute - discuss snf Chief Complaint: discuss snf admin Electroplater Automatic Required: No Accompanied by: Self Is patient [...] #30 12/24/23 01/23/24 Rx (Lidocaine Pain Relief) shelby magnesium oxide 400 mg (241.3 mg 400 [...] ea 01/09/24 01/23/24 Rx (FreeStyle Bianca 2 [place]) flash glucose sensor (FreeStyle #1 ea 01/09/24 [...] Electronic Cigarette (more content not included)... Normal [facility] Hepatic Function Panel Aon 0 10-03-2023 Albumin [Mass/Vol] 3.9 g/dL Low 4.0-4.9 [facility] Comment on above: Performed By: #### L IVP6 #### [address] [address] , Edi Irby M.D. FCAP, FASCP ALP [Catalytic activity/Vol] 285 U/L High 40-129 [facility] Comment on above: Performed By: #### L IVP6 #### [address] [address] , Edi Irby M.D. FCAP, FASCP ALT [Catalytic activity/Vol] 31 U/L Normal 10-50 [facility] Comment on above: Performed By: #### L IVP6 #### [address] [address] , Edi Irby M.D. FCAP, FASCP AST [Catalytic activity/Vol] 35 U/L Normal 10-50 [facility] Comment on above: Performed By: #### L IVP6 #### [address] [id number] , Edi Irby M.D. FCAP, FASCP Bilirubin [Mass/Vol] 0.4 mg/dL Normal 0.2-1.2 [facility] Comment on above: Performed By: #### L IVP6 #### [address] [address] , Edi Irby M.D. FCAP, FASCP Bilirubin Indirect 0.2 mg/dL Normal 0.0-1.1 [facility] Comment on above: Performed By: #### L IVP6 #### [address] [address] , Edi Irby M.D. FCAP, FASCP Bilirubin.indirect [Mass/Vol] 0.2 mg/dL Normal 0.0-0.3 [facility] Comment on above: Performed By: #### L IVP6 #### [facility] [address] [place] [address] , Edi Irby M.D. FCAP, FASCP Protein [Mass/Vol] 6.8 g/dL Normal 6.4-8.3 [facility] Comment on above: Performed By: #### L IVP6 #### [facility] [address] [place] [address] , Edi Irby M.D. FCAP, FASCP Serum or plasma alanine martinez otransferase measurement (enzymatic activity/volume)Ordered By: KIM QUEVEDO on 10-03-2023 ALT [Catalytic activity/Vol] 31 U/L 1050 [facility] Serum or plasma albumin zainab urement (mass/volume)Ordered By: KIM QUEVEDO on 10-03-2023 Albumin [Mass/Vol] 3.9 g/dL Low 4.0-4.9 [facility] Serum or plasma alkaline robert sphatase measurement (enzymatic activity/volume)Ordered By: KIM QUEVEDO on 10-03-2023 ALP [Catalytic activity/Vol] 285 U/L High 40-129 [facility] Serum or plasma aspartate am inotransferase measurement (enzymatic activity/volume)Ordered By: KIM QUEVEDO on 10-03-2023 AST [Catalytic activity/Vol] 35 U/L 1050 [facility] Serum or plasma direct bilir ubin measurement (mass/volume)Ordered By: KIM QUEVEDO on 10-03-2023 Bilirubin.direct [Mass/Vol] 0.2 mg/dL 0.0-0.3 [facility] Serum or plasma indirect mingo irubin measurement (mass/volume)Ordered By: KIM QUEVEDO on 10-03-2023 Bilirubin.indirect [Mass/Vol] 0.2 mg/dL 0.0-1.1 [facility] Serum or plasma protein zainab urement (mass/volume)Ordered By: KIM QUEVDEO on 10-03-2023 Protein [Mass/Vol] 6.8 g/dL 6.4-8.3 [facility] Serum or plasma total biliru bin measurement (mass/volume)Ordered By: KIM QUEVEDO on 10-03-2023 Bilirubin [Mass/Vol] 0.4 mg/dL 0.2-1.2 [facility] Basic Metabolic Panelon 12-2 Anion gap [Moles/Vol] 18 mmol/L High 9-15 [facility] Comment on above: Performed By: #### L IVP6 #### [facility] [address] [place], [place] [id number] , Edi Irby M.D. FCAP, FASCP Calcium [Mass/Vol] 8.8 mg/dL Normal 8.6-10.0 [facility] Comment on above: Performed By: #### L IVP6 #### [address] [id number] , Edi Irby M.D. FCAP, FASCP Chloride [Moles/Vol] 93 mmol/L Low 98-107 [facility] Comment on above: Performed By: #### L IVP6 #### [address] [id number] , Maribel PalenciaAP, FASCP CO2 [Moles/Vol] 24 mmol/L Normal 22-29 [facility] Comment on above: Performed By: #### L IVP6 #### [address] [id number] , Edi Irby M.D. FCAP, FASCP Creatinine [Mass/Vol] 3.52 mg/dL High 0.67-1.17 [facility] Comment on above: Performed By: #### L IVP6 #### [address] [id number] , Edi Irby M.D. FCAP, FASCP GFR/1.73 sq M.predicted among non-blacks MDRD (S/P/Bld) [Vol rate/Area] 19 mL/min/{1.73_m2} Normal [facility] Comment on above: Result Comment: THE GFR IS ESTIMATED USING THE MDRD STUDY EQUATION. *NOTE* IF THE RACE OF THE PATIENT WAS UNKNOWN AT THE TIME OF REGISTRATION, AND THE PATIENT IS , MULTIPLY THE EGFR RESULT PROVIDED BY 1.21. EGFR <60.0 COULD BE ABNORMAL. Performed By: #### L IVP6 #### [address] [id number] , Maribel PalenciaAP, FASCP Glucose [Mass/Vol] 99 mg/dL Normal 70-100 [facility] Comment on above: Result Comment: INTR EPRETATION FOR FASTING BLOOD GLUCOSE: 70-100 mg/dl NORMAL GLUCOSE TOLERANCE 100-125 mg/dl IMPAIRED FASTING GLUCOSE (PRE-DIABETES) >125 mg/dl DIABETES - ON MORE THAN ONE TESTING Performed By: #### L IVP6 #### [address] [id number] , Maribel PalenciaAP, FASCP Potassium [Moles/Vol] 4.3 mmol/L Normal 3.6-5.0 [facility] Comment on above: Performed By: #### L IVP6 #### [address] [id number] , Maribel PalenciaAP, FASCP Sodium [Moles/Vol] 135 mmol/L Low 136-145 [facility] Comment on above: Performed By: #### L IVP6 #### [address] [address] , Maribel PalenciaAP, FASCP Urea nitrogen [Mass/Vol] 41.1 mg/dL High 6.0-20.0 [facility] Comment on above: Performed By: #### L IVP6 #### [address] [id number] , Edi Irby M.D. FCAP, FASCP Basophils Auto (Bld) [#/Vol] Ordered By: KIM QUEVEDO on 07-11-2023 Basophils (Bld) [#/Vol] 0.05 10*3/uL 0.0-0.2 [facility] Basophils/100 WBC Auto (Bld) Ordered By: KIM QUEVEDO on 07-11-2023 Basophils/100 WBC (Bld) 0.5 % 0-1.0 [facility] Blood hemoglobin measurement (mass/volume)Ordered By: KIM QUEVEDO on 07-11-2023 Hemoglobin (Bld) [Mass/Vol] 8.0 g/dL Low 13.3-17.7 [facility] CBC With Differentialon 06-15 Basophils Absolute Auto 0.05 10*3/uL Normal 0.0-0.2 [facility] Comment on above: Performed By: #### C BCD #### [address] [id number] , Edi Irby M.D. FCAP, FASCP Basophils/100 WBC (Bld) 0.5 % Normal 0-1.0 [facility] Comment on above: Performed By: #### C BCD #### [address] [phone] , Edi Irby M.D. FCAP, FASCP Differential Type? Auto Differential Normal [facility] Comment on above: Performed By: #### C BCD #### [facility] [address] [facility], [place] [id number] , Edi Irby M.D. FCAP, FASCP Eosinophils (Bld) [#/Vol] 0.17 10*3/uL Normal 0.0-0.5 [facility] Comment on above: Performed By: #### C BCD #### [facility] [address] [facility], [place] [phone] , Edi Irby M.D. FCAP, FASCP Eosinophils/100 WBC (Bld) 1.8 % Normal 0.0-3.0 [facility] Comment on above: Performed By: #### C BCD #### [address] [id number] , Edi Irby M.D. FCAP, FASCP Hematocrit (Bld) [Volume fraction] 27.5 % Low 40.0-52.0 [facility] Comment on above: Performed By: #### C BCD #### [address] [id number] , Edi Irby M.D. FCAP, FASCP Hemoglobin (Bld) [Mass/Vol] 8.0 g/dL Low 13.3-17.7 [facility] Comment on above: Performed By: #### C BCD #### [address] [id number] , Edi Irby M.D. FCAP, FASCP Immature Gran Absolute Auto 0.06 10*3/uL Normal 0.01-0.2 [facility] Comment on above: Performed By: #### C BCD #### [address] [phone] , Edi Irby M.D. FCAP, FASCP Immature granulocytes/100 WBC (Bld) 0.6 % Normal 0-0.9 [facility] Comment on above: Performed By: #### C BCD #### [address] [id number] , Edi Irby M.D. FCAP, FASCP Lymphocytes (Bld) [#/Vol] 1.17 10*3/uL Low 1.5-4.0 [facility] Comment on above: Performed By: #### C BCD #### [address] [place] [id number] , Edi Irby M.D. FCAP, FASCP Lymphocytes/100 WBC (Bld) 12.6 % Low 20.0-40.0 [facility] Comment on above: Performed By: #### C BCD #### [address] [id number] , Edi Irby M.D. FCAP, FASCP MCH (RBC) [Entitic mass] 24.5 pg Low 27.0-40.0 [facility] Comment on above: Performed By: #### C ANI #### [address] [id number] , Edi Irby M.D. FCAP, FASCP Mean Corpusc Hgb Concentration 29.1 g/dL Low 31.0-36.0 [facility] Comment on above: Performed By: #### C BCJak #### [address] [id number] , Edi Irby M.D. FCAP, FASCP Mean Corpuscular Volume 84.1 CU uM Normal 80.0-100.0 [facility] Comment on above: Performed By: #### C BCJak #### [address] [id number] , Edi Irby M.D. FCAP, FASCP Monocytes (Bld) [#/Vol] 0.53 10*3/uL Normal 0.2-0.8 [facility] Comment on above: Performed By: #### C BCD #### [address] [id number] , Edi Irby M.D. FCAP, FASCP Monocytes/100 WBC (Bld) 5.7 % Normal 4.0-10.0 [facility] Comment on above: Performed By: #### C MAYURID #### [address] [address] , Edi Irby M.D. FCAP, FASCP Neutrophils Absolute Auto 7.29 10*3/uL High 2.0-7.0 [facility] Comment on above: Performed By: #### C BCD #### [address] [address] , Edi Irby M.D. FCAP, FASCP Neutrophils/100 WBC (Bld) 78.8 % High 54.0-62.0 [facility] Comment on above: Performed By: #### C BCJak #### [address] [address] , Edi Irby M.D. FCAP, FASCP Nucleated RBC (Bld) [#/Vol] 0.00 10*3/uL Normal -0 [facility] Comment on above: Performed By: #### C BCJak #### [address] [address] , Edi Irby M.D. FCAP, FASCP Nucleated RBC's % 0.0 /100WBC Normal -0 [facility] Comment on above: Performed By: #### C BCD #### [address] [place] [address] , Edi Irby M.D. FCAP, FASCP Platelets (Bld) [#/Vol] 245 10*3/uL Normal 130-440 [facility] Comment on above: Performed By: #### C BCD #### [address] [place] [address] , Edi Irby M.D. FCAP, FASCP RBC (Bld) [#/Vol] 3.27 10*6/uL Low 4.40-5.90 [facility] Comment on above: Performed By: #### C BCD #### [facility] [address] [facility], [place] [id number] , Edi Irby M.D. FCAP, FASCP Red Cell Distribution 17.4 High 11.5-14.5 [facility] Comment on above: Performed By: #### C BCD #### [facility] [address] [place], [place] [id number] , Edi Irby M.D. FCAP, FASCP WBC (Bld) [#/Vol] 9.3 10*3/uL Normal 3.9-10.6 [facility] Comment on above: Performed By: #### C BCD #### [facility] [address] [place], [place] [id number] , Edi Irby M.D. FCAP, FASCP Differential cell count meth od - BloodOrdered By: KIM QUEVEDO on 07-11-2023 Differential cell count method Nom (Bld) Auto differential [facility] Eosinophils Auto (Bld) [#/Vo l]Ordered By: KIM QUEVEDO on 07-11-2023 Eosinophils (Bld) [#/Vol] 0.17 10*3/uL 0.0-0.5 [facility] Eosinophils/100 WBC Auto (Bl d)Ordered By: KIM QUEVEDO on 07-11-2023 Eosinophils/100 WBC (Bld) 1.8 % 0.0-3.0 [facility] Erythrocyte distribution wid th Auto (RBC) [Ratio]Ordered By: KIM QUEVEDO on 07-11-2023 Erythrocyte distribution width (RBC) [Ratio] 17.4 % High 11.5-14.5 [facility] Glomerular filtration rate/1 .73 sq M.predicted [Volume Rate/Area] in Serum, Plasma orOrdered By: KIM QUEVEDO on 07-11-2023 GFR/1.73 sq M.predicted (S/P/Bld) [Vol rate/Area] 19 mL/min [facility] Comment on above: EGFR <60.0 COULD BE ABNORMAL.THE GFR IS ESTIMATED USING THE MDRD STUDY EQUATION.*NOTE* IF THE RACE OF THE PATIENT WAS UNKNOWN AT THE TIME OFREGISTRATION, AND THE PATIENT IS , MULTIPLYTHE EGFR RESULT PROVIDED BY 1.21. Hematocrit Auto (Bld) [Volum e fraction]Ordered By: KIM QUEVEDO on 07-11-2023 Hematocrit (Bld) [Volume fraction] 27.5 % Low 40.0-52.0 [facility] Immature granulocytes Auto ( Bld) [#/Vol]Ordered By: KIM QUEVEDO on 07-11-2023 Immature granulocytes (Bld) [#/Vol] 0.06 10*3/uL 0.01-0.2 [facility] Immature granulocytes/100 WB C Auto (Bld)Ordered By: KIM QUEVEDO on 07-11-2023 Immature granulocytes/100 WBC (Bld) 0.6 % 0-0.9 [facility] Lymphocytes Auto (Bld) [#/Vo l]Ordered By: KIM QUEVEDO on 07-11-2023 Lymphocytes (Bld) [#/Vol] 1.17 10*3/uL Low 1.5-4.0 [facility] Lymphocytes/100 WBC Auto (Bl d)Ordered By: KIM QUEVEDO on 07-11-2023 Lymphocytes/100 WBC (Bld) 12.6 % Low 20.0-40.0 [facility] MCH Auto (RBC) [Entitic mass ]Ordered By: KIM QUEVEDO on 07-11-2023 MCH (RBC) [Entitic mass] 24.5 pg Low 27-40 [facility] MCHC Auto (RBC) [Mass/Vol]Or dered By: KIM QUEVEDO on 07-11-2023 MCHC (RBC) [Mass/Vol] 29.1 g/dL Low 31-[address] [facility] MCV Auto (RBC) [Entitic vol] Ordered By: KIM QUEVEDO on 07-11-2023 MCV (RBC) [Entitic vol] 84.1 CU uM 80.0-100.0 [facility] Monocytes Auto (Bld) [#/Vol] Ordered By: KIM QUEVEDO on 07-11-2023 Monocytes (Bld) [#/Vol] 0.53 10*3/uL 0.2-0.8 [facility] Monocytes/100 WBC Auto (Bld) Ordered By: KIM QUEVEDO on 07-11-2023 Monocytes/100 WBC (Bld) 5.7 % 4.0-10.0 [facility] Neutrophils Auto (Bld) [#/Vo l]Ordered By: KIM QUEVEDO on 07-11-2023 Neutrophils (Bld) [#/Vol] 7.29 10*3/uL High 2.0-7.0 [facility] Neutrophils/100 WBC Auto (Bl d)Ordered By: KIM QUEVEDO on 07-11-2023 Neutrophils/100 WBC (Bld) 78.8 % High 54.0-62.0 [facility] Nucleated RBC Auto (Bld) [#/ Vol]Ordered By: KIM QUEVEDO on 07-11-2023 Nucleated RBC (Bld) [#/Vol] 0.00 10*3/uL <0 [facility] Nucleated RBC/100 WBC Auto ( Bld) [Ratio]Ordered By: KIM QUEVEDO on 07-11-2023 Nucleated RBC/100 WBC (Bld) [Ratio] 0.0 /100WBC <0 [facility] Platelets Auto (Bld) [#/Vol] Ordered By: KIM QUEVEDO on 07-11-2023 Platelets (Bld) [#/Vol] 245 10*3/uL 130-440 [facility] RBC Auto (Bld) [#/Vol]Ordere d By: KIM QUEVEDO on 07-11-2023 RBC (Bld) [#/Vol] 3.27 10*6/uL Low 4.40-5.90 [facility] Serum or plasma anion gapOrd ered By: KIM QUEVEDO on 07-11-2023 Anion gap [Moles/Vol] 18 mmol/L High 9-[address] [facility] Serum or plasma calcium zainab urement (mass/volume)Ordered By: KIM QUEVEDO on 07-11-2023 Calcium [Mass/Vol] 8.8 mg/dL 8.6-10.0 [facility] Serum or plasma carbon dioxi de, total measurement (moles/volume)Ordered By: KIM QUEVEDO on 07-11-2023 CO2 [Moles/Vol] 24 mmol/L [facility] Serum or plasma chloride eduardo surement (moles/volume)Ordered By: KIM QUEVEDO on 07-11-2023 Chloride [Moles/Vol] 93 mmol/L Low 98-107 [facility] Serum or plasma creatinine m easurement (mass/volume)Ordered By: KIM QUEVEDO on 07-11-2023 Creatinine [Mass/Vol] 3.52 mg/dL High 0.67-1.[address] [facility] Serum or plasma glucose zainab urement (mass/volume)Ordered By: KIM QUEVEDO on 07-11-2023 Glucose [Mass/Vol] 99 mg/dL 70-100 [facility] Comment on above: INTREPRETATION FOR F ASTING BLOOD GLUCOSE: 70-100 mg/dl NORMAL GLUCOSE CAMWSYGUI049-496 mg/dl IMPAIRED FASTING GLUCOSE (PRE-DIABETES)>125 mg/dl DIABETES - ON MORE THAN ONE TESTING Serum or plasma potassium me asurement (moles/volume)Ordered By: KIM QUEVEDO on 07-11-2023 Potassium [Moles/Vol] 4.3 mmol/L 3.6-5.[address] [facility] Serum or plasma sodium measu rement (moles/volume)Ordered By: KIM QUEVEDO on 07-11-2023 Sodium [Moles/Vol] 135 mmol/L Low 136-145 [facility] Serum or plasma urea nitroge n measurement (mass/volume)Ordered By: KIM QUEVEDO on 07-11-2023 Urea nitrogen [Mass/Vol] 41.1 mg/dL High 6.0-20.0 [facility] WBC Auto (Bld) [#/Vol]Ordere d By: KIM QUEVEDO on 07-11-2023 WBC (Bld) [#/Vol] 9.3 10*3/uL 3.9-10.6 [facility] Basic Metabolic Panelon 12 Anion gap [Moles/Vol] 17 mmol/L High 9-15 [facility] Comment on above: Performed By: #### C HEM7, CP1 #### [address] [id number] , Edi Irby M.D. FCAP, FASCP Calcium [Mass/Vol] 8.7 mg/dL Normal 8.6-10.0 [facility] Comment on above: Performed By: #### C HEM7, CP1 #### [address] [id number] , Edi Irby M.D. FCAP, FASCP Chloride [Moles/Vol] 93 mmol/L Low 98-107 [facility] Comment on above: Performed By: #### C HEM7, CP1 #### [address] [id number] , Edi Irby M.D. FCAP, FASCP CO2 [Moles/Vol] 21 mmol/L Low 22-29 [facility] Comment on above: Performed By: #### C HEM7, CP1 #### [address] [id number] , Edi Irby M.D. FCAP, FASCP Creatinine [Mass/Vol] 3.79 mg/dL High 0.67-1.17 [facility] Comment on above: Performed By: #### C HEM7, CP1 #### [address] [id number] , Edi Irby M.D. FCAP, FASCP GFR/1.73 sq M.predicted among non-blacks MDRD (S/P/Bld) [Vol rate/Area] 17 mL/min/{1.73_m2} Normal [facility] Comment on above: Result Comment: THE GFR IS ESTIMATED USING THE MDRD STUDY EQUATION. *NOTE* IF THE RACE OF THE PATIENT WAS UNKNOWN AT THE TIME OF REGISTRATION, AND THE PATIENT IS , MULTIPLY THE EGFR RESULT PROVIDED BY 1.21. EGFR <60.0 COULD BE ABNORMAL. Performed By: #### C HEM7, CP1 #### [address] [address] , Edi Irby M.D. FCAP, FASCP Glucose [Mass/Vol] 81 mg/dL Normal 70-100 [facility] Comment on above: Result Comment: INTR EPRETATION FOR FASTING BLOOD GLUCOSE: 70-100 mg/dl NORMAL GLUCOSE TOLERANCE 100-125 mg/dl IMPAIRED FASTING GLUCOSE (PRE-DIABETES) >125 mg/dl DIABETES - ON MORE THAN ONE TESTING Performed By: #### C HEM7, CP1 #### [address] [address] , Edi Irby M.D. FCAP, FASCP Potassium [Moles/Vol] 6.6 mmol/L Critically high 3.6-5.0 [facility] Comment on above: Result Comment: HEMO LYSIS PRESENT. INTERPRET RESULT WITH CAUTION. Alert Value called to DENZEL ADKINS, DATE: 2023-07-05 12:50:46 BY:FRED Read Back? YES ALERT VALUE ATTENTION NURSING ALERT VALUE NOTIFY PHYSICIAN WITHIN 30 MINUTES OF RECEIVING THIS REPORT Performed By: #### C HEM7, CP1 #### [address] [address] , Edi Irby M.D. FCAP, FASCP Sodium [Moles/Vol] 131 mmol/L Low 136-145 [facility] Comment on above: Performed By: #### C HEM7, CP1 #### [address] [address] , Edi Irby M.D. FCAP, FASCP Urea nitrogen [Mass/Vol] 49.9 mg/dL High 6.0-20.0 [facility] Comment on above: Performed By: #### C HEM7, CP1 #### [facility] [address] [place] [address] , Edi Irby M.D. FCAP, FASCP Basophils Auto (Bld) [#/Vol] Ordered By: KIM QUEVEDO on 07-05-2023 Basophils (Bld) [#/Vol] 0.05 10*3/uL 0.0-0.2 [facility] Basophils/100 WBC Auto (Bld) Ordered By: KIM QUEVEDO on 07-05-2023 Basophils/100 WBC (Bld) 0.5 % 0-1.0 [facility] Blood hemoglobin measurement (mass/volume)Ordered By: KIM QUEVEDO on 07-05-2023 Hemoglobin (Bld) [Mass/Vol] 8.5 g/dL Low 13.3-17.7 [facility] CBC With Differentialon 06-15 Differential Type? Auto Differential Normal [facility] Comment on above: Performed By: #### C BCD #### [facility] [address] [place] [address] , Edi Irby M.D. FCAP, FASCP Differential cell count meth od - BloodOrdered By: KIM QUEVEDO on 07-05-2023 Differential cell count method Nom (Bld) Auto differential [facility] Eosinophils Auto (Bld) [#/Vo l]Ordered By: KIM QUEVEDO on 07-05-2023 Eosinophils (Bld) [#/Vol] 0.06 10*3/uL 0.0-0.5 [facility] Eosinophils/100 WBC Auto (Bl d)Ordered By: KIM QUEVEDO on 07-05-2023 Eosinophils/100 WBC (Bld) 0.6 % 0.0-3.0 [facility] Erythrocyte distribution wid th Auto (RBC) [Ratio]Ordered By: KIM QUEVEDO on 07-05-2023 Erythrocyte distribution width (RBC) [Ratio] 17.9 % High 11.5-14.5 [facility] Glomerular filtration rate/1 .73 sq M.predicted [Volume Rate/Area] in Serum, Plasma orOrdered By: KIM QUEVEDO on 07-05-2023 GFR/1.73 sq M.predicted (S/P/Bld) [Vol rate/Area] 17 mL/min [facility] Comment on above: EGFR <60.0 COULD BE ABNORMAL.THE GFR IS ESTIMATED USING THE MDRD STUDY EQUATION.*NOTE* IF THE RACE OF THE PATIENT WAS UNKNOWN AT THE TIME OFREGISTRATION, AND THE PATIENT IS , MULTIPLYTHE EGFR RESULT PROVIDED BY 1.21. Hematocrit Auto (Bld) [Volum e fraction]Ordered By: KIM QUEVEDO on 07-05-2023 Hematocrit (Bld) [Volume fraction] 30.2 % Low 40.0-52.0 [facility] Immature granulocytes Auto ( Bld) [#/Vol]Ordered By: KIM QUEVEDO on 07-05-2023 Immature granulocytes (Bld) [#/Vol] 0.06 10*3/uL 0.01-0.2 [facility] Immature granulocytes/100 WB C Auto (Bld)Ordered By: KIM QUEVEDO on 07-05-2023 Immature granulocytes/100 WBC (Bld) 0.6 % 0-0.9 [facility] Lymphocytes Auto (Bld) [#/Vo l]Ordered By: KIM QUEVEDO on 07-05-2023 Lymphocytes (Bld) [#/Vol] 0.54 10*3/uL Low 1.5-4.0 [facility] Lymphocytes/100 WBC Auto (Bl d)Ordered By: KIM QUEVEDO on 07-05-2023 Lymphocytes/100 WBC (Bld) 5.1 % Low 20.0-40.0 [facility] MCH Auto (RBC) [Entitic mass ]Ordered By: KIM QUEVEDO on 07-05-2023 MCH (RBC) [Entitic mass] 24.9 pg Low 27-40 [facility] MCHC Auto (RBC) [Mass/Vol]Or dered By: KIM QUEVEDO on 07-05-2023 MCHC (RBC) [Mass/Vol] 28.1 g/dL Low 31-36 [facility] MCV Auto (RBC) [Entitic vol] Ordered By: KIM QUEVEDO on 07-05-2023 MCV (RBC) [Entitic vol] 88.6 CU uM 80.0-100.0 [facility] Monocytes Auto (Bld) [#/Vol] Ordered By: KIM QUEVEDO on 07-05-2023 Monocytes (Bld) [#/Vol] 0.38 10*3/uL 0.2-0.8 [facility] Monocytes/100 WBC Auto (Bld) Ordered By: KMI QUEVEDO on 07-05-2023 Monocytes/100 WBC (Bld) 3.6 % Low 4.0-10.0 [facility] Neutrophils Auto (Bld) [#/Vo l]Ordered By: KIM QUEVEDO on 07-05-2023 Neutrophils (Bld) [#/Vol] 9.60 10*3/uL High 2.0-7.0 [facility] Neutrophils/100 WBC Auto (Bl d)Ordered By: KIM QUEVEDO on 07-05-2023 Neutrophils/100 WBC (Bld) 89.6 % High 54.0-62.0 [facility] Nucleated RBC Auto (Bld) [#/ Vol]Ordered By: KIM QUEVEDO on 07-05-2023 Nucleated RBC (Bld) [#/Vol] 0.02 10*3/uL High <0 [facility] Nucleated RBC/100 WBC Auto ( Bld) [Ratio]Ordered By: KIM QUEVEDO on 07-05-2023 Nucleated RBC/100 WBC (Bld) [Ratio] 0.2 /100WBC High <0 [facility] Platelets Auto (Bld) [#/Vol] Ordered By: KIM QUEVEDO on 07-05-2023 Platelets (Bld) [#/Vol] 289 10*3/uL 130-440 [facility] RBC Auto (Bld) [#/Vol]Ordere d By: KIM QUEVEDO on 07-05-2023 RBC (Bld) [#/Vol] 3.41 10*6/uL Low 4.40-5.90 [facility] Serum or plasma anion gapOrd ered By: KIM QUEVEDO on 07-05-2023 Anion gap [Moles/Vol] 17 mmol/L High 9-[address] [facility] Serum or plasma calcium zainab urement (mass/volume)Ordered By: KIM QUEVEDO on 07-05-2023 Calcium [Mass/Vol] 8.7 mg/dL 8.6-10.0 [facility] Serum or plasma carbon dioxi de, total measurement (moles/volume)Ordered By: KIM QUEVEDO on 07-05-2023 CO2 [Moles/Vol] 21 mmol/L Low 22-29 [facility] Serum or plasma chloride eduardo surement (moles/volume)Ordered By: KIM QUEVEDO on 07-05-2023 Chloride [Moles/Vol] 93 mmol/L Low 98-107 [facility] Serum or plasma creatinine m easurement (mass/volume)Ordered By: KIM QUEVEDO on 07-05-2023 Creatinine [Mass/Vol] 3.79 mg/dL High 0.67-1.[address] [facility] Serum or plasma glucose zainab urement (mass/volume)Ordered By: KIM QUEVEDO on 07-05-2023 Glucose [Mass/Vol] 81 mg/dL 70-100 [facility] Comment on above: INTREPRETATION FOR F ASTING BLOOD GLUCOSE: 70-100 mg/dl NORMAL GLUCOSE [id number] mg/dl IMPAIRED FASTING GLUCOSE (PRE-DIABETES)>125 mg/dl DIABETES - ON MORE THAN ONE TESTING Serum or plasma potassium me asurement (moles/volume)Ordered By: KIM QUEVEDO on 07-05-2023 Potassium [Moles/Vol] 6.6 mmol/L High 3.6-5.[address] [facility] Comment on above: HEMOLYSIS PRESENT. I NTERPRET RESULT WITH CAUTION. Alert Value called to DENZEL ADKINS, DATE: 2023-07-05 12:50:46 BY:FRED Read Back? YES ALERT VALUE ATTENTION NURSING ALERT VALUE NOTIFY PHYSICIAN WITHIN 30 MINUTES OF RECEIVING THIS REPORT Serum or plasma sodium measu rement (moles/volume)Ordered By: KIM QUEVEDO on 07-05-2023 Sodium [Moles/Vol] 131 mmol/L Low 136-145 [facility] Serum or plasma urea nitroge n measurement (mass/volume)Ordered By: KIM QUEVEDO on 07-05-2023 Urea nitrogen [Mass/Vol] 49.9 mg/dL High 6.0-20.0 [facility] WBC Auto (Bld) [#/Vol]Ordere d By: KIM QUEVEDO on 07-05-2023 WBC (Bld) [#/Vol] 10.7 10*3/uL High 3.9-10.6 [facility] Serum or plasma uric acid me asurement (mass/volume)Ordered By: KIM QUEVEDO on 05-29-2023 Urate [Mass/Vol] 3.3 mg/dL Low 3.4-7.0 [facility] Uric Acid Bloodon 05-29-2023 Uric Acid Blood 3.3 mg/dL Low 3.4-7.0 [facility] Comment on above: Performed By: #### L IVP6 #### [facility] [address] [place] [address] , Edi Irby M.D. FCAP, FASCP Alanine aminotransferase [En zymatic activity/volume] in Serum or PlasmaOrdered By: KIM QUEVEDO on 01-01-2023 ALT [Catalytic activity/Vol] 45 U/L 10-50 [facility] Blood hemoglobin measurement (mass/volume)Ordered By: KIM QUEVEDO on 01-01-2023 Hemoglobin (Bld) [Mass/Vol] 8.1 g/dL Low 13.3-17.7 [facility] Hematocrit Auto (Bld) [Volum e fraction]Ordered By: KIM QUEVEDO on 01-01-2023 Hematocrit (Bld) [Volume fraction] 27.7 % Low 40.0-52.0 [facility] Hemoglobin Hematocriton 12-14 Hematocrit (Bld) [Volume fraction] 27.7 % Low 40.0-52.0 [facility] Comment on above: Performed By: #### C BCD #### [facility] [address] [place] [address] , Edi Irby M.D. FCAP, FASCP Hemoglobin (Bld) [Mass/Vol] 8.1 g/dL Low 13.3-17.7 [facility] Comment on above: Performed By: #### C BCD #### [facility] [address] [place] [address] , Maribel PalenciaAP, FASCP Hepatic Function Panel Aon 0 - Albumin [Mass/Vol] 3.6 g/dL Low 4.0-4.9 [facility] Comment on above: Performed By: #### L IVP6 #### [address] [address] , Edi Irby M.D. FCAP, FASCP ALP [Catalytic activity/Vol] 380 U/L High 40-129 [facility] Comment on above: Performed By: #### L IVP6 #### [address] [address] , Maribel PalenciaAP, FASCP ALT [Catalytic activity/Vol] 45 U/L Normal 10-50 [facility] Comment on above: Performed By: #### L IVP6 #### [address] [place] [address] , Maribel Palencia, FASCP AST [Catalytic activity/Vol] 27 U/L Normal 10-50 [facility] Comment on above: Performed By: #### L IVP6 #### [address] [place] [address] , Maribel Palencia, FASCP Bilirubin [Mass/Vol] 0.5 mg/dL Normal 0.2-1.2 [facility] Comment on above: Performed By: #### L IVP6 #### [address] [place] [address] , Maribel PalenciaAP, FASCP Bilirubin Indirect 0.2 MG/DL Normal 0.0-1.1 [facility] Comment on above: Performed By: #### L IVP6 #### [address] [place] [address] , Edi Irby M.D. FCAP, FASCP Bilirubin.indirect [Mass/Vol] 0.3 mg/dL Normal 0.0-0.3 [facility] Comment on above: Performed By: #### L IVP6 #### [facility] [address] [place], [place] [id number] , Edi Irby M.D. FCAP, FASCP Protein [Mass/Vol] 6.2 g/dL Low 6.4-8.3 [facility] Comment on above: Performed By: #### L IVP6 #### [facility] [address] [place] [address] , Edi Irby M.D. FCAP, FASCP Serum or plasma albumin zainab urement (mass/volume)Ordered By: KIM QUEVEDO on 01-01-2023 Albumin [Mass/Vol] 3.6 g/dL Low 4.0-4.9 [facility] Serum or plasma alkaline robert sphatase measurement (enzymatic activity/volume)Ordered By: KIM QUEVEDO on 01-01-2023 ALP [Catalytic activity/Vol] 380 U/L High 40-129 [facility] Serum or plasma aspartate am inotransferase measurement (enzymatic activity/volume)Ordered By: KIM QUEVEDO on 01-01-2023 AST [Catalytic activity/Vol] 27 U/L 10-50 [facility] Serum or plasma direct bilir ubin measurement (mass/volume)Ordered By: KIM QUEVEDO on 01-01-2023 Bilirubin.direct [Mass/Vol] 0.3 mg/dL 0.0-0.3 [facility] Serum or plasma indirect mingo irubin measurement (mass/volume)Ordered By: KIM QUEVEDO on 01-01-2023 Bilirubin.indirect [Mass/Vol] 0.2 mg/dL 0.0-1.1 [facility] Serum or plasma protein zainab urement (mass/volume)Ordered By: KIM QUEVEDO on 01-01-2023 Protein [Mass/Vol] 6.2 g/dL Low 6.4-8.3 [facility] Serum total bilirubin measur ement (mass/volume)Ordered By: KIM QUEVEDO on 01-01-2023 Bilirubin [Mass/Vol] 0.5 mg/dL 0.2-1.2 [facility] Anisocytosis LM Ql (Bld)Orde red By: KIM QUEVDEO on 12-28-2022 Anisocytosis Ql (Bld) 1+ Mar [facility] Basic Metabolic Panelon 12-13 Anion gap [Moles/Vol] 17 mmol/L High 9-15 [facility] Comment on above: Performed By: #### C BCD #### [address] [address] , Edi Irby M.D. FCAP, FASCP Calcium [Mass/Vol] 8.6 mg/dL Normal 8.6-10.0 [facility] Comment on above: Performed By: #### C BCD #### [address] [place] [address] , Edi Irby M.D. FCAP, FASCP Chloride [Moles/Vol] 90 mmol/L Low 98-107 [facility] Comment on above: Performed By: #### C BCD #### [facility] [address] [place] [address] , Edi Irby M.D. FCAP, FASCP CO2 [Moles/Vol] 24 mmol/L Normal 22-29 [facility] Comment on above: Performed By: #### C BCD #### [facility] [address] [place] [address] , Edi Irby M.D. FCAP, FASCP Creatinine [Mass/Vol] 3.44 mg/dL High 0.67-1.17 [facility] Comment on above: Performed By: #### C BCD #### [facility] [address] [place] [id number] , Edi Irby M.D. FCAP, FASCP GFR/1.73 sq M.predicted among non-blacks MDRD (S/P/Bld) [Vol rate/Area] 19 mL/min/{1.73_m2} Normal [facility] Comment on above: Result Comment: THE GFR IS ESTIMATED USING THE MDRD STUDY EQUATION. *NOTE* IF THE RACE OF THE PATIENT WAS UNKNOWN AT THE TIME OF REGISTRATION, AND THE PATIENT IS , MULTIPLY THE EGFR RESULT PROVIDED BY 1.21. EGFR <60.0 COULD BE ABNORMAL. Performed By: #### C BCD #### [facility] [address] [place] [address] , Edi Irby M.D. FCAP, FASCP Glucose [Mass/Vol] 59 mg/dL Low 70-100 [facility] Comment on above: Result Comment: INTR EPRETATION FOR FASTING BLOOD GLUCOSE: 70-100 mg/dl NORMAL GLUCOSE TOLERANCE 100-125 mg/dl IMPAIRED FASTING GLUCOSE (PRE-DIABETES) >125 mg/dl DIABETES - ON MORE THAN ONE TESTING Performed By: #### C BCD #### [facility] [address] [place] [address] , Maribel PalenciaAP, FASCP Potassium [Moles/Vol] 5.9 mmol/L High 3.6-5.0 [facility] Comment on above: Result Comment: HEMO LYSIS PRESENT. INTERPRET RESULT WITH CAUTION. Performed By: #### C BCD #### [facility] [address] [place] [address] , Edi Irby M.D. FCAP, FASCP Sodium [Moles/Vol] 131 mmol/L Low 136-145 [facility] Comment on above: Performed By: #### C BCD #### [facility] [address] [place] [address] , Edi Irby M.D. FCAP, FASCP Urea nitrogen [Mass/Vol] 43.2 mg/dL High 6.0-20.0 [facility] Comment on above: Performed By: #### C BCD #### [facility] [address] [place] [address] , Edi Irby M.D. FCAP, FASCP Basophils Auto (Bld) [#/Vol] Ordered By: KIM QUEVEDO on 12-28-2022 Basophils (Bld) [#/Vol] 0.06 10:3/uL 0.0-0.2 [facility] Basophils/100 WBC Auto (Bld) Ordered By: KIM QUEVEDO on 12-28-2022 Basophils/100 WBC (Bld) 0.6 % 0-1.0 [facility] Blood hemoglobin measurement (mass/volume)Ordered By: KIM QUEVEDO on 12-28-2022 Hemoglobin (Bld) [Mass/Vol] 7.8 g/dL Low 13.3-17.7 [facility] Blood poikilocytosis detecti on by light microscopyOrdered By: KIM QUEVEDO on 12-28-2022 Poikilocytosis LM Ql (Bld) 1+ [facility] CBC With Differentialon 12-13 Basophils Absolute Auto 0.06 10:3/uL Normal 0.0-0.2 [facility] Comment on above: Performed By: #### L IVP6 #### [address] [address] , Edi Irby M.D. FCAP, FASCP Basophils/100 WBC (Bld) 0.6 % Normal 0-1.0 [facility] Comment on above: Performed By: #### L IVP6 #### [address] [address] , Edi Irby M.D. FCAP, FASCP Eosinophils Absolute Auto 0.08 10:3/uL Normal 0.0-0.5 [facility] Comment on above: Performed By: #### L IVP6 #### [address] [id number] , Edi Irby M.D. FCAP, FASCP Eosinophils/100 WBC (Bld) 0.8 % Normal 0.0-3.0 [facility] Comment on above: Performed By: #### L IVP6 #### [address] [id number] , Edi Irby M.D. FCAP, FASCP Immature Gran Absolute Auto 0.06 10:3/uL Normal 0.01-0.2 [facility] Comment on above: Performed By: #### L IVP6 #### [address] [id number] , Edi Irby M.D. FCAP, FASCP Immature granulocytes/100 WBC (Bld) 0.6 % Normal 0-0.9 [facility] Comment on above: Performed By: #### L IVP6 #### [address] [id number] , Edi Irby M.D. FCAP, FASCP Lymphocytes Absolute Auto 1.34 10:3/uL Low 1.5-4.0 [facility] Comment on above: Performed By: #### L IVP6 #### [address] [id number] , Edi Irby M.D. FCAP, FASCP Lymphocytes/100 WBC (Bld) 12.7 % Low 20.0-40.0 [facility] Comment on above: Performed By: #### L IVP6 #### [address] [id number] , Edi Irby M.D. FCAP, FASCP Monocytes Absolute Auto 0.73 10:3/uL Normal 0.2-0.8 [facility] Comment on above: Performed By: #### L IVP6 #### [facility] [address] [facility], [place] [id number] , Edi Irby M.D. FCAP, FASCP Monocytes/100 WBC (Bld) 6.9 % Normal 4.0-10.0 M [facility] Comment on above: Performed By: #### L IVP6 #### [facility] [address] [facility], [place] [id number] , Edi Irby M.D. FCAP, FASCP Neutrophils Absolute Auto 8.32 10:3/uL High 2.0-7.0 [facility] Comment on above: Performed By: #### L IVP6 #### [facility] [address] [facility], [place] [id number] , Edi Irby M.D. FCAP, FASCP Neutrophils/100 WBC (Bld) 78.4 % High 54.0-62.0 [facility] Comment on above: Performed By: #### L IVP6 #### [facility] [address] [facility], [place] [id number] , Edi Irby M.D. FCAP, FASCP Differential cell count meth od - BloodOrdered By: KIM QUEVEDO on 12-28-2022 Differential cell count method Nom (Bld) Auto differential [facility] Eosinophils Auto (Bld) [#/Vo l]Ordered By: KIM QUEVEDO on 12-28-2022 Eosinophils (Bld) [#/Vol] 0.08 10:3/uL 0.0-0.5 [facility] Eosinophils/100 WBC Auto (Bl d)Ordered By: KIM QUEVEDO on 12-28-2022 Eosinophils/100 WBC (Bld) 0.8 % 0.0-3.0 [facility] Erythrocyte distribution wid th Auto (RBC) [Ratio]Ordered By: KIM QUEVEDO on 12-28-2022 Erythrocyte distribution width (RBC) [Ratio] 17.7 % High 11.5-14.5 [facility] Glomerular filtration rate/1 .73 sq M.predicted [Volume Rate/Area] in Serum, Plasma orOrdered By: KIM QUEVEDO on 12-28-2022 GFR/1.73 sq M.predicted (S/P/Bld) [Vol rate/Area] 19 mL/min [facility] Comment on above: EGFR <60.0 COULD BE ABNORMAL.THE GFR IS ESTIMATED USING THE MDRD STUDY EQUATION.*NOTE* IF THE RACE OF THE PATIENT WAS UNKNOWN AT THE TIME OFREGISTRATION, AND THE PATIENT IS , MULTIPLYTHE EGFR RESULT PROVIDED BY 1.21. Hematocrit Auto (Bld) [Volum e fraction]Ordered By: KIM QUEVEDO on 12-28-2022 Hematocrit (Bld) [Volume fraction] 27.2 % Low 40.0-52.0 [facility] Hypochromia LM Ql (Bld)Order ed By: KIM QUEVEDO on 12-28-2022 Hypochromia Ql (Bld) 2+ [facility] Immature granulocytes Auto ( Bld) [#/Vol]Ordered By: KIM QUEVEDO on 12-28-2022 Immature granulocytes (Bld) [#/Vol] 0.06 10:3/uL 0.01-0.2 [facility] Immature granulocytes/100 WB C Auto (Bld)Ordered By: KIM QUEVEDO on 12-28-2022 Immature granulocytes/100 WBC (Bld) 0.6 % 0-0.9 [facility] Lymphocytes Auto (Bld) [#/Vo l]Ordered By: KIM QUEVEDO on 12-28-2022 Lymphocytes (Bld) [#/Vol] 1.34 10:3/uL Low 1.5-4.0 [facility] Lymphocytes/100 WBC Auto (Bl d)Ordered By: KIM QUEVEDO on 12-28-2022 Lymphocytes/100 WBC (Bld) 12.7 % Low 20.0-40.0 [facility] MCH Auto (RBC) [Entitic mass ]Ordered By: KIM QUEVEDO on 12-28-2022 MCH (RBC) [Entitic mass] 23.5 pg Low 27-40 [facility] MCHC Auto (RBC) [Mass/Vol]Or dered By: KIM QUEVEDO on 12-28-2022 MCHC (RBC) [Mass/Vol] 28.7 g/dL Low 31-[address] [facility] MCV Auto (RBC) [Entitic vol] Ordered By: KIM QUEVEDO on 12-28-2022 MCV (RBC) [Entitic vol] 81.9 CU uM 80.0-100.0 M [facility] Monocytes Auto (Bld) [#/Vol] Ordered By: KIM QUEVEDO on 12-28-2022 Monocytes (Bld) [#/Vol] 0.73 10:3/uL 0.2-0.8 [facility] Monocytes/100 WBC Auto (Bld) Ordered By: KIM QUEVEDO on 12-28-2022 Monocytes/100 WBC (Bld) 6.9 % 4.0-10.0 [facility] Neutrophils Auto (Bld) [#/Vo l]Ordered By: KIM QUEVEDO on 12-28-2022 Neutrophils (Bld) [#/Vol] 8.32 10:3/uL High 2.0-7.0 [facility] Neutrophils/100 WBC Auto (Bl d)Ordered By: KIM QUEVEOD on 12-28-2022 Neutrophils/100 WBC (Bld) 78.4 % High 54.0-62.0 [facility] Nucleated RBC Auto (Bld) [#/ Vol]Ordered By: KIM QUEVEDO on 12-28-2022 Nucleated RBC (Bld) [#/Vol] 0.00 10:3/uL <0 [facility] Nucleated RBC/100 WBC Auto ( Bld) [Ratio]Ordered By: KIM QUEVEDO on 12-28-2022 Nucleated RBC/100 WBC (Bld) [Ratio] 0.0 /100WBC <0 [facility] Platelets Auto (Bld) [#/Vol] Ordered By: KIM QUEVEDO on 12-28-2022 Platelets (Bld) [#/Vol] 311 10:3/uL 130-440 [facility] RBC Auto (Bld) [#/Vol]Ordere d By: KIM QUEVEDO on 12-28-2022 RBC (Bld) [#/Vol] 3.32 10:6/uL Low 4.40-5.90 [facility] Serum or plasma anion gapOrd ered By: KIM QUEVEDO on 12-28-2022 Anion gap [Moles/Vol] 17 mmol/L High 9-[address] [facility] Serum or plasma calcium zainab urement (mass/volume)Ordered By: KIM QUEVEDO on 12-28-2022 Calcium [Mass/Vol] 8.6 mg/dL 8.6-10.0 [facility] Serum or plasma carbon dioxi de, total measurement (moles/volume)Ordered By: KIM QUEVEDO on 12-28-2022 CO2 [Moles/Vol] 24 mmol/L - [facility] Serum or plasma chloride eduardo surement (moles/volume)Ordered By: KIM QUEVEDO on 12-28-2022 Chloride [Moles/Vol] 90 mmol/L Low 98-107 [facility] Serum or plasma creatinine m easurement (mass/volume)Ordered By: KIM QUEVEDO on 12-28-2022 Creatinine [Mass/Vol] 3.44 mg/dL High 0.67-1.[address] [facility] Serum or plasma glucose zainab urement (mass/volume)Ordered By: KIM QUEVEDO on 12-28-2022 Glucose [Mass/Vol] 59 mg/dL Low 70-100 [facility] Comment on above: INTREPRETATION FOR F ASTING BLOOD GLUCOSE: 70-100 mg/dl NORMAL GLUCOSE [id number] mg/dl IMPAIRED FASTING GLUCOSE (PRE-DIABETES)>125 mg/dl DIABETES - ON MORE THAN ONE TESTING Serum or plasma potassium me asurement (moles/volume)Ordered By: KIM QUEVEDO on 12-28-2022 Potassium [Moles/Vol] 5.9 mmol/L High 3.6-5.[address] [facility] Comment on above: HEMOLYSIS PRESENT. I NTERPRET RESULT WITH CAUTION. Serum or plasma sodium measu rement (moles/volume)Ordered By: KIM QUEVEDO on 12-28-2022 Sodium [Moles/Vol] 131 mmol/L Low 136-145 [facility] Serum or plasma urea nitroge n measurement (mass/volume)Ordered By: KIM QUEVEDO on 12-28-2022 Urea nitrogen [Mass/Vol] 43.2 mg/dL High 6.0-20.0 [facility] WBC Auto (Bld) [#/Vol]Ordere d By: KIM QUEVEDO on 12-28-2022 WBC (Bld) [#/Vol] 10.6 10:3/uL 3.9-10.6 [facility] Basic Metabolic Panelon 06-0 Anion gap [Moles/Vol] 14 mmol/L Normal 9-15 [facility] Comment on above: Performed By: #### L IVP6 #### [address] [id number] , Edi Irby M.D. FCAP, FASCP Calcium [Mass/Vol] 8.7 mg/dL Normal 8.6-10.0 [facility] Comment on above: Performed By: #### L IVP6 #### [address] [id number] , Edi Irby M.D. FCAP, FASCP Chloride [Moles/Vol] 93 mmol/L Low 98-107 [facility] Comment on above: Performed By: #### L IVP6 #### [address] [id number] , Maribel PalenciaAP, FASCP CO2 [Moles/Vol] 26 mmol/L Normal 22-29 [facility] Comment on above: Performed By: #### L IVP6 #### [address] [address] , Edi rIby M.D. FCAP, FASCP Creatinine [Mass/Vol] 4.01 mg/dL High 0.67-1.17 [facility] Comment on above: Performed By: #### L IVP6 #### [address] [id number] , Edi Irby M.D. FCAP, FASCP GFR/1.73 sq M.predicted among non-blacks MDRD (S/P/Bld) [Vol rate/Area] 16 mL/min/{1.73_m2} Normal [facility] Comment on above: Result Comment: THE GFR IS ESTIMATED USING THE MDRD STUDY EQUATION. *NOTE* IF THE RACE OF THE PATIENT WAS UNKNOWN AT THE TIME OF REGISTRATION, AND THE PATIENT IS , MULTIPLY THE EGFR RESULT PROVIDED BY 1.21. EGFR <60.0 COULD BE ABNORMAL. Performed By: #### L IVP6 #### [address] [id number] , Edi Irby M.D. FCAP, FASCP Glucose [Mass/Vol] 78 mg/dL Normal 70-100 [facility] Comment on above: Result Comment: INTR EPRETATION FOR FASTING BLOOD GLUCOSE: 70-100 mg/dl NORMAL GLUCOSE TOLERANCE 100-125 mg/dl IMPAIRED FASTING GLUCOSE (PRE-DIABETES) >125 mg/dl DIABETES - ON MORE THAN ONE TESTING Performed By: #### L IVP6 #### [address] [id number] , Maribel PalenciaAP, FASCP Potassium [Moles/Vol] 6.1 mmol/L High 3.6-5.0 [facility] Comment on above: Performed By: #### L IVP6 #### [address] [address] , Maribel PalenciaAP, FASCP Sodium [Moles/Vol] 133 mmol/L Low 136-145 [facility] Comment on above: Performed By: #### L IVP6 #### [address] [address] , Edi Irby M.D. FCAP, FASCP Urea nitrogen [Mass/Vol] 42.1 mg/dL High 6.0-20.0 [facility] Comment on above: Performed By: #### L IVP6 #### [address] [id number] , Edi Irby M.D. FCAP, FASCP Blood hemoglobin measurement (mass/volume)Ordered By: KIM QUEVEDO on 12-21-2022 Hemoglobin (Bld) [Mass/Vol] 8.1 g/dL Low 13.3-17.7 [facility] Complete Blood Counton 12-21 Hematocrit (Bld) [Volume fraction] 26.2 % Low 40.0-52.0 [facility] Comment on above: Performed By: #### C BCD #### [address] [id number] , Edi Irby M.D. FCAP, FASCP Hemoglobin (Bld) [Mass/Vol] 8.1 g/dL Low 13.3-17.7 [facility] Comment on above: Performed By: #### C BCD #### [address] [id number] , Edi Irby M.D. FCAP, FASCP MCH (RBC) [Entitic mass] 24.7 pg Low 27.0-40.0 [facility] Comment on above: Performed By: #### C BCD #### [address] [address] , Edi Irby M.D. FCAP, FASCP Mean Corpusc Hgb Concentration 30.9 g/dL Low 31.0-36.0 [facility] Comment on above: Performed By: #### C BCD #### [address] [address] , Edi Irby M.D. FCAP, FASCP Mean Corpuscular Volume 79.9 CU uM Low 80.0-100.0 [facility] Comment on above: Performed By: #### C BCD #### [address] [phone] , Edi Irby M.D. FCAP, FASCP Platelet Count 332 10:3/uL Normal 130-440 [facility] Comment on above: Performed By: #### C BCD #### [facility] [address] [place], [place] [id number] , Edi Irby M.D. FCAP, FASCP Red Blood Cell Count 3.28 10:6/uL Low 4.40-5.90 [facility] Comment on above: Performed By: #### C BCD #### [facility] [address] [place], [place] [id number] , Edi Irby M.D. FCAP, FASCP Red Cell Distribution 17.1 High 11.5-14.5 [facility] Comment on above: Performed By: #### C BCD #### [facility] [address] [place], [place] [id number] , Edi Irby M.D. FCAP, FASCP White Blood Cell Count 13.4 10:3/uL High 3.9-10.6 [facility] Comment on above: Performed By: #### C BCD #### [facility] [address] [place], [place] [id number] , Edi Irby M.D. FCAP, FASCP Erythrocyte distribution wid th Auto (RBC) [Ratio]Ordered By: KIM QUEVEDO on 12-21-2022 Erythrocyte distribution width (RBC) [Ratio] 17.1 % High 11.5-14.5 [facility] Glomerular filtration rate/1 .73 sq M.predicted [Volume Rate/Area] in Serum, Plasma orOrdered By: KIM QUEVEDO on 12-21-2022 GFR/1.73 sq M.predicted (S/P/Bld) [Vol rate/Area] 16 mL/min [facility] Comment on above: EGFR <60.0 COULD BE ABNORMAL.THE GFR IS ESTIMATED USING THE MDRD STUDY EQUATION.*NOTE* IF THE RACE OF THE PATIENT WAS UNKNOWN AT THE TIME OFREGISTRATION, AND THE PATIENT IS , MULTIPLYTHE EGFR RESULT PROVIDED BY 1.21. Hematocrit Auto (Bld) [Volum e fraction]Ordered By: KIM QUEVEDO on 12-21-2022 Hematocrit (Bld) [Volume fraction] 26.2 % Low 40.0-52.0 [facility] MCH Auto (RBC) [Entitic mass ]Ordered By: KIM QUEVEDO on 12-21-2022 MCH (RBC) [Entitic mass] 24.7 pg Low 27-40 [facility] MCHC Auto (RBC) [Mass/Vol]Or dered By: KIM QUEVEDO on 12-21-2022 MCHC (RBC) [Mass/Vol] 30.9 g/dL Low 31-36 [facility] MCV Auto (RBC) [Entitic vol] Ordered By: KIM QUEVEDO on 12-21-2022 MCV (RBC) [Entitic vol] 79.9 CU uM Low 80.0-100.0 [facility] Platelets Auto (Bld) [#/Vol] Ordered By: KIM QUEVEDO on 12-21-2022 Platelets (Bld) [#/Vol] 332 10:3/uL 130-440 [facility] RBC Auto (Bld) [#/Vol]Ordere d By: KIM QUEVEDO on 12-21-2022 RBC (Bld) [#/Vol] 3.28 10:6/uL Low 4.40-5.90 [facility] Serum or plasma anion gapOrd ered By: KIM QUEVEDO on 12-21-2022 Anion gap [Moles/Vol] 14 mmol/L 9-15 [facility] Serum or plasma calcium zainab urement (mass/volume)Ordered By: KIM QUEVEDO on 12-21-2022 Calcium [Mass/Vol] 8.7 mg/dL 8.6-10.0 [facility] Serum or plasma carbon dioxi de, total measurement (moles/volume)Ordered By: KIM QUEVEDO on 12-21-2022 CO2 [Moles/Vol] 26 mmol/L 22-29 [facility] Serum or plasma chloride eduardo surement (moles/volume)Ordered By: KIM QUEVEDO on 12-21-2022 Chloride [Moles/Vol] 93 mmol/L Low 98-107 [facility] Serum or plasma creatinine m easurement (mass/volume)Ordered By: KIM QUEVEDO on 12-21-2022 Creatinine [Mass/Vol] 4.01 mg/dL High 0.67-1.[address] [facility] Serum or plasma glucose zainab urement (mass/volume)Ordered By: KIM QUEVEDO on 12-21-2022 Glucose [Mass/Vol] 78 mg/dL 70-100 [facility] Comment on above: INTREPRETATION FOR F ASTING BLOOD GLUCOSE: 70-100 mg/dl NORMAL GLUCOSE [id number] mg/dl IMPAIRED FASTING GLUCOSE (PRE-DIABETES)>125 mg/dl DIABETES - ON MORE THAN ONE TESTING Serum or plasma potassium me asurement (moles/volume)Ordered By: KIM QUEVEDO on 12-21-2022 Potassium [Moles/Vol] 6.1 mmol/L High 3.6-5.[address] [facility] Serum or plasma sodium measu rement (moles/volume)Ordered By: KIM QUEVEDO on 12-21-2022 Sodium [Moles/Vol] 133 mmol/L Low 136-145 [facility] Serum or plasma urea nitroge n measurement (mass/volume)Ordered By: KIM QUEVEDO on 12-21-2022 Urea nitrogen [Mass/Vol] 42.1 mg/dL High 6.0-20.0 [facility] WBC Auto (Bld) [#/Vol]Ordere d By: KIM QUEVEDO on 12-21-2022 WBC (Bld) [#/Vol] 13.4 10:3/uL High 3.9-10.6 [facility] Automated blood hematocrit ( volume fraction)Ordered By: KIM QUEVEDO on 12-07-2022 Hematocrit (Bld) [Volume fraction] 25.0 % Low 40.0-52.0 [facility] Comment on above: Performed By: #### L IVP6 #### [facility] [address] [place] [address] , Maribel Palencia, FASCP Automated erythrocyte mean c orpuscular hemoglobin (MCH) measurement (mass/erythrocyteOrdered By: KIM QUEVEDO on 12-07-2022 MCH (RBC) [Entitic mass] 23.8 pg Low 27.0-40.0 [facility] Comment on above: Performed By: #### L IVP6 #### [facility] [address] [place] [address] , Maribel Palencia, FASCP Basic Metabolic Panelon 11-13 GFR/1.73 sq M.predicted among non-blacks MDRD (S/P/Bld) [Vol rate/Area] 13 mL/min/{1.73_m2} Normal [facility] Comment on above: Result Comment: THE GFR IS ESTIMATED USING THE MDRD STUDY EQUATION. *NOTE* IF THE RACE OF THE PATIENT WAS UNKNOWN AT THE TIME OF REGISTRATION, AND THE PATIENT IS , MULTIPLY THE EGFR RESULT PROVIDED BY 1.21. EGFR <60.0 COULD BE ABNORMAL. Performed By: #### C HEM7 #### [facility] [address] [place] [address] , Maribel Palencia, FASCSri Blood hemoglobin measurement (mass/volume)Ordered By: KIM QUEVEDO on 12-07-2022 Hemoglobin (Bld) [Mass/Vol] 7.4 g/dL Low 13.3-17.7 [facility] Comment on above: Performed By: #### L IVP6 #### [facility] [address] [place] [address] , Maribel Palencia, FASCP Complete Blood Counton 12-07 Mean Corpusc Hgb Concentration 29.6 g/dL Low 31.0-36.0 [facility] Comment on above: Performed By: #### L IVP6 #### [facility] [address] [place] [address] , Edi Irby M.D. FCAP, FASCP Mean Corpuscular Volume 80.4 CU uM Normal 80.0-100.0 [facility] Comment on above: Performed By: #### L IVP6 #### [address] [id number] , Edi Irby M.D. FCAP, FASCP Platelet Count 301 10:3/uL Normal 130-440 [facility] Comment on above: Performed By: #### L IVP6 #### [address] [id number] , Edi Irby M.D. FCAP, FASCP Red Blood Cell Count 3.11 10:6/uL Low 4.40-5.90 [facility] Comment on above: Performed By: #### L IVP6 #### [address] [id number] , Maribel Palencia, FASCP Red Cell Distribution 16.9 High 11.5-14.5 [facility] Comment on above: Performed By: #### L IVP6 #### [address] [phone] , Edi Irby M.D. FCAP, FASCP White Blood Cell Count 10.5 10:3/uL Normal 3.9-10.6 [facility] Comment on above: Performed By: #### L IVP6 #### [address] [phone] , Edi Irby M.D. FCAP, FASCP Erythrocyte distribution wid th Auto (RBC) [Ratio]Ordered By: KIM QUEVEDO on 12-07-2022 Erythrocyte distribution width (RBC) [Ratio] 16.9 % High 11.5-14.5 [facility] Glomerular filtration rate/1 .73 sq M.predicted [Volume Rate/Area] in Serum, Plasma orOrdered By: KIM QUEVEDO on 12-07-2022 GFR/1.73 sq M.predicted (S/P/Bld) [Vol rate/Area] 13 mL/min [facility] Comment on above: EGFR <60.0 COULD BE ABNORMAL.THE GFR IS ESTIMATED USING THE MDRD STUDY EQUATION.*NOTE* IF THE RACE OF THE PATIENT WAS UNKNOWN AT THE TIME OFREGISTRATION, AND THE PATIENT IS , MULTIPLYTHE EGFR RESULT PROVIDED BY 1.21. MCHC Auto (RBC) [Mass/Vol]Or dered By: KIM QUEVEDO on 12-07-2022 MCHC (RBC) [Mass/Vol] 29.6 g/dL Low 31-36 [facility] MCV Auto (RBC) [Entitic vol] Ordered By: KIM QUEVEDO on 12-07-2022 MCV (RBC) [Entitic vol] 80.4 CU uM 80.0-100.0 [facility] Platelets Auto (Bld) [#/Vol] Ordered By: KIM QUEVEDO on 12-07-2022 Platelets (Bld) [#/Vol] 301 10:3/uL 130-440 [facility] RBC Auto (Bld) [#/Vol]Ordere d By: KIM QUEVEDO on 12-07-2022 RBC (Bld) [#/Vol] 3.11 10:6/uL Low 4.40-5.90 [facility] Serum or plasma anion gapOrd ered By: KIM QUEVEDO on 12-07-2022 Anion gap [Moles/Vol] 14 mmol/L Normal 9-15 [facility] Comment on above: Performed By: #### C HEM7 #### [facility] [address] [place] [address] , Edi Irby M.D. FCAP, FASCP Serum or plasma calcium zainab urement (mass/volume)Ordered By: KIM QUEVEDO on 12-07-2022 Calcium [Mass/Vol] 8.1 mg/dL Low 8.6-10.0 [facility] Comment on above: Performed By: #### C HEM7 #### [facility] [address] [place] [address] , Edi Irby M.D. FCAP, FASCP Serum or plasma carbon dioxi de, total measurement (moles/volume)Ordered By: KIM QUEVEDO on 12-07-2022 CO2 [Moles/Vol] 25 mmol/L Normal 22-29 [facility] Comment on above: Performed By: #### C HEM7 #### [facility] [address] [place] [address] , Maribel PalenciaAP, FASCP Serum or plasma chloride eduardo surement (moles/volume)Ordered By: KIM QUEVEDO on 12-07-2022 Chloride [Moles/Vol] 94 mmol/L Low 98-107 [facility] Comment on above: Performed By: #### C HEM7 #### [facility] [address] [place] [address] , Edi Irby M.D. FCAP, FASCP Serum or plasma creatinine m easurement (mass/volume)Ordered By: KIM QUEVEDO on 12-07-2022 Creatinine [Mass/Vol] 4.74 mg/dL High 0.67-1.[address] [facility] Comment on above: Performed By: #### C HEM7 #### [facility] [address] [place] [address] , Edi Irby M.D. FCAP, FASCP Serum or plasma glucose zainab urement (mass/volume)Ordered By: KIM QUEVEDO on 12-07-2022 Glucose [Mass/Vol] 81 mg/dL Normal 70-100 [facility] Comment on above: INTREPRETATION FOR F ASTING BLOOD GLUCOSE: 70-100 mg/dl NORMAL GLUCOSE [id number] mg/dl IMPAIRED FASTING GLUCOSE (PRE-DIABETES)>125 mg/dl DIABETES - ON MORE THAN ONE TESTING Result Comment: INTR EPRETATION FOR FASTING BLOOD GLUCOSE: 70-100 mg/dl NORMAL GLUCOSE TOLERANCE 100-125 mg/dl IMPAIRED FASTING GLUCOSE (PRE-DIABETES) >125 mg/dl DIABETES - ON MORE THAN ONE TESTING Performed By: #### C HEM7 #### [facility] [address] [place] [address] , Edi Irby M.D. FCAP, FASCP Serum or plasma potassium me asurement (moles/volume)Ordered By: KIM QUEVEDO on 12-07-2022 Potassium [Moles/Vol] 5.6 mmol/L High 3.6-5.[address] [facility] Comment on above: Performed By: #### C HEM7 #### [facility] [address] [place] [address] , Edi Irby M.D. FCAP, FASCP Serum or plasma sodium measu rement (moles/volume)Ordered By: KIM QUEVEDO on 12-07-2022 Sodium [Moles/Vol] 133 mmol/L Low 136-145 [facility] Comment on above: Performed By: #### C HEM7 #### [facility] [address] [place] [address] , Edi Irby M.D. FCAP, FASCP Serum or plasma urea nitroge n measurement (mass/volume)Ordered By: KIM QUEVEDO on 12-07-2022 Urea nitrogen [Mass/Vol] 47.1 mg/dL High 6.0-20.0 [facility] Comment on above: Performed By: #### C HEM7 #### [facility] [address] [place] [address] , Edi Irby M.D. FCAP, FASCP WBC Auto (Bld) [#/Vol]Ordere d By: KIM QUEVEDO on 12-07-2022 WBC (Bld) [#/Vol] 10.5 10:3/uL 3.9-10.6 [facility] Basic Metabolic Panelon 11-12 Anion gap [Moles/Vol] 11 mmol/L Normal 9-15 [facility] Comment on above: Performed By: #### C HEM7 #### [address] [id number] , Edi Irby M.D. FCAP, FASCP Calcium [Mass/Vol] 8.0 mg/dL Low 8.6-10.0 [facility] Comment on above: Performed By: #### C HEM7 #### [address] [id number] , Edi Irby M.D. FCAP, FASCP Chloride [Moles/Vol] 94 mmol/L Low 98-107 [facility] Comment on above: Performed By: #### C HEM7 #### [address] [id number] , Edi Irby M.D. FCAP, FASCP CO2 [Moles/Vol] 27 mmol/L Normal 22-29 [facility] Comment on above: Performed By: #### C HEM7 #### [address] [id number] , Edi Irby M.D. FCAP, FASCP Creatinine [Mass/Vol] 3.53 mg/dL High 0.67-1.17 [facility] Comment on above: Performed By: #### C HEM7 #### [address] [id number] , Edi Irby M.D. FCAP, FASCP GFR/1.73 sq M.predicted among non-blacks MDRD (S/P/Bld) [Vol rate/Area] 19 mL/min/{1.73_m2} Normal [facility] Comment on above: Result Comment: THE GFR IS ESTIMATED USING THE MDRD STUDY EQUATION. *NOTE* IF THE RACE OF THE PATIENT WAS UNKNOWN AT THE TIME OF REGISTRATION, AND THE PATIENT IS , MULTIPLY THE EGFR RESULT PROVIDED BY 1.21. EGFR <60.0 COULD BE ABNORMAL. Performed By: #### C HEM7 #### [address] [id number] , Edi Irby M.D. FCAP, FASCP Glucose [Mass/Vol] 69 mg/dL Low 70-100 [facility] Comment on above: Result Comment: INTR EPRETATION FOR FASTING BLOOD GLUCOSE: 70-100 mg/dl NORMAL GLUCOSE TOLERANCE 100-125 mg/dl IMPAIRED FASTING GLUCOSE (PRE-DIABETES) >125 mg/dl DIABETES - ON MORE THAN ONE TESTING Performed By: #### C HEM7 #### [address] [id number] , Edi Irby M.D. FCAP, FASCP Potassium [Moles/Vol] 5.0 mmol/L Normal 3.6-5.0 [facility] Comment on above: Performed By: #### C HEM7 #### [address] [id number] , Edi Irby M.D. FCAP, FASCP Sodium [Moles/Vol] 132 mmol/L Low 136-145 [facility] Comment on above: Performed By: #### C HEM7 #### [address] [id number] , Edi Irby M.D. FCAP, FASCP Urea nitrogen [Mass/Vol] 30.1 mg/dL High 6.0-20.0 [facility] Comment on above: Performed By: #### C HEM7 #### [address] [phone] , Edi Irby M.D. FCAP, FASCP Basophils Auto (Bld) [#/Vol] Ordered By: KIM QUEVEDO on 11-30-2022 Basophils (Bld) [#/Vol] 0.07 10:3/uL 0.0-0.2 [facility] Basophils/100 WBC Auto (Bld) Ordered By: KIM QUEVEDO on 11-30-2022 Basophils/100 WBC (Bld) 0.8 % 0-1.0 [facility] Blood hemoglobin measurement (mass/volume)Ordered By: KIM QUEVEDO on 11-30-2022 Hemoglobin (Bld) [Mass/Vol] 6.4 g/dL Low 13.3-17.7 [facility] Comment on above: This result has been called to WILLIAM CHUA by aaron on 11/30/2022 09:19:40, and has been read back. ALERT VALUE ATTENTION NURSING ALERT VALUE NOTIFY PHYSICIAN WITHIN 30 MINUTES OF RECEIVING THIS REPORT CBC With Differentialon 11-12 Basophils Absolute Auto 0.07 10:3/uL Normal 0.0-0.2 [facility] Comment on above: Performed By: #### C HEM7, CP1 #### [address] [id number] , Edi Irby M.D. FCAP, FASCP Basophils/100 WBC (Bld) 0.8 % Normal 0-1.0 [facility] Comment on above: Performed By: #### Garrett HEMHallie, CP1 #### [address] [id number] , Edi Irby M.D. FCAP, FASCP Differential Type? Auto Differential Normal [facility] Comment on above: Performed By: #### Garrett HEM7, CP1 #### [address] [id number] , Edi Irby M.D. FCAP, FASCP Eosinophils Absolute Auto 0.12 10:3/uL Normal 0.0-0.5 [facility] Comment on above: Performed By: #### Garrett HEM7, CP1 #### [address] [id number] , Edi Irby M.D. FCAP, FASCP Eosinophils/100 WBC (Bld) 1.3 % Normal 0.0-3.0 [facility] Comment on above: Performed By: #### Garrett HEMKUMAR Sterling1 #### [address] [id number] , Edi Irby M.D. FCAP, FASCP Hematocrit (Bld) [Volume fraction] 21.7 % Low 40.0-52.0 [facility] Comment on above: Performed By: #### Garrett HEMHallie, CP1 #### [address] [id number] , Edi Irby M.D. FCAP, FASCP Hemoglobin (Bld) [Mass/Vol] 6.4 g/dL Critically low 13.3-17.7 [facility] Comment on above: Result Comment: This result has been called to WILLIAM CHUA by aaron on 11/30/2022 09:19:40, and has been read back. ALERT VALUE ATTENTION NURSING ALERT VALUE NOTIFY PHYSICIAN WITHIN 30 MINUTES OF RECEIVING THIS REPORT Performed By: #### Garrett HYATT CP1 #### [address] [address] , Edi Irby M.D. FCAP, FASCP Immature Gran Absolute Auto 0.05 10:3/uL Normal 0.01-0.2 [facility] Comment on above: Performed By: #### Garrett HEMHallie, CP1 #### [address] [address] , Edi Irby M.D. FCAP, FASCP Immature granulocytes/100 WBC (Bld) 0.6 % Normal 0-0.9 [facility] Comment on above: Performed By: #### Garrett HEMHallie, CP1 #### [address] [address] , Edi J. Macatol, M.D. FCAP, FASCP Lymphocytes Absolute Auto 1.59 10:3/uL Normal 1.5-4.0 [facility] Comment on above: Performed By: #### Garrett HEMHallie CP1 #### [address] [id number] , Edi Irby M.D. FCAP, FASCP Lymphocytes/100 WBC (Bld) 17.8 % Low 20.0-40.0 [facility] Comment on above: Performed By: #### Garrett HEMHallie, CP1 #### [address] [id number] , Edi Irby M.D. FCAP, FASCP MCH (RBC) [Entitic mass] 22.9 pg Low 27.0-40.0 [facility] Comment on above: Performed By: #### Garrett HEMKUMAR Sterling1 #### [address] [id number] , Edi Irby M.D. FCAP, FASCP Mean Corpusc Hgb Concentration 29.5 g/dL Low 31.0-36.0 [facility] Comment on above: Performed By: #### Garrett HEMHallie, CP1 #### [address] [id number] , Edi Irby M.D. FCAP, FASCP Mean Corpuscular Volume 77.8 CU uM Low 80.0-100.0 [facility] Comment on above: Performed By: #### Garrett HEMHallie, CP1 #### [address] [id number] , Edi Irby M.D. FCAP, FASCP Monocytes Absolute Auto 0.72 10:3/uL Normal 0.2-0.8 [facility] Comment on above: Performed By: #### Garrett HEMHallie, CP1 #### [address] [id number] , Edi Irby M.D. FCAP, FASCP Monocytes/100 WBC (Bld) 8.1 % Normal 4.0-10.0 [facility] Comment on above: Performed By: #### Garrett HEM7, CP1 #### [address] [id number] , Edi Irby M.D. FCAP, FASCP Neutrophils Absolute Auto 6.37 10:3/uL Normal 2.0-7.0 [facility] Comment on above: Performed By: #### Garrett HEMHallie, CP1 #### [address] [phone] , Edi Irby M.D. FCAP, FASCP Neutrophils/100 WBC (Bld) 71.4 % High 54.0-62.0 [facility] Comment on above: Performed By: #### Garrett HEMHallie, CP1 #### [address] [id number] , Edi Irby M.D. FCAP, FASCP Nucleated RBC's % Auto 0.0 /100WBC Normal -0 [facility] Comment on above: Performed By: #### Garrett HEMHallie, CP1 #### [address] [id number] , Edi Irby M.D. FCAP, FASCP Nucleated RBC's Absolute Auto 0.00 10:3/uL Normal -0 [facility] Comment on above: Performed By: #### Garrett HEMHallie, CP1 #### [address] [id number] , Edi Irby M.D. FCAP, FASCP Platelet Count 329 10:3/uL Normal 130-440 [facility] Comment on above: Performed By: #### Garrett HEMHallie, CP1 #### [facility] [address] [facility], [place] [phone] , Edi Irby M.D. FCAP, FASCP Red Blood Cell Count 2.79 10:6/uL Low 4.40-5.90 [facility] Comment on above: Performed By: #### C HEM7, CP1 #### [facility] [address] [place], [place] [phone] , Edi Irby M.D. FCAP, FASCP Red Cell Distribution 15.5 High 11.5-14.5 [facility] Comment on above: Performed By: #### C HEM7, CP1 #### [address] [id number] , Edi Irby M.D. FCAP, FASCP White Blood Cell Count 8.9 10:3/uL Normal 3.9-10.6 [facility] Comment on above: Performed By: #### C HEM7, CP1 #### [facility] [address] [place], [place] [id number] , Edi Irby M.D. FCAP, FASCP Differential cell count meth od - BloodOrdered By: KIM QUEVEDO on 11-30-2022 Differential cell count method Nom (Bld) Auto differential [facility] Eosinophils Auto (Bld) [#/Vo l]Ordered By: KIM QUEVEDO on 11-30-2022 Eosinophils (Bld) [#/Vol] 0.12 10:3/uL 0.0-0.5 [facility] Eosinophils/100 WBC Auto (Bl d)Ordered By: KIM QUEVEDO on 11-30-2022 Eosinophils/100 WBC (Bld) 1.3 % 0.0-3.0 [facility] Erythrocyte distribution wid th Auto (RBC) [Ratio]Ordered By: KIM QUEVEDO on 11-30-2022 Erythrocyte distribution width (RBC) [Ratio] 15.5 % High 11.5-14.5 [facility] Glomerular filtration rate/1 .73 sq M.predicted [Volume Rate/Area] in Serum, Plasma orOrdered By: KIM QUEVEDO on 11-30-2022 GFR/1.73 sq M.predicted (S/P/Bld) [Vol rate/Area] 19 mL/min [facility] Comment on above: EGFR <60.0 COULD BE ABNORMAL.THE GFR IS ESTIMATED USING THE MDRD STUDY EQUATION.*NOTE* IF THE RACE OF THE PATIENT WAS UNKNOWN AT THE TIME OFREGISTRATION, AND THE PATIENT IS , MULTIPLYTHE EGFR RESULT PROVIDED BY 1.21. Hematocrit Auto (Bld) [Volum e fraction]Ordered By: KIM QUEVEDO on 11-30-2022 Hematocrit (Bld) [Volume fraction] 21.7 % Low 40.0-52.0 [facility] Immature granulocytes Auto ( Bld) [#/Vol]Ordered By: KIM QUEVEDO on 11-30-2022 Immature granulocytes (Bld) [#/Vol] 0.05 10:3/uL 0.01-0.2 [facility] Immature granulocytes/100 WB C Auto (Bld)Ordered By: KIM QUEVEDO on 11-30-2022 Immature granulocytes/100 WBC (Bld) 0.6 % 0-0.9 [facility] Lymphocytes Auto (Bld) [#/Vo l]Ordered By: KIM QUEVEDO on 11-30-2022 Lymphocytes (Bld) [#/Vol] 1.59 10:3/uL 1.5-4.0 [facility] Lymphocytes/100 WBC Auto (Bl d)Ordered By: KIM QUEVEDO on 11-30-2022 Lymphocytes/100 WBC (Bld) 17.8 % Low 20.0-40.0 [facility] MCH Auto (RBC) [Entitic mass ]Ordered By: KIM QUEVEDO on 11-30-2022 MCH (RBC) [Entitic mass] 22.9 pg Low 27-40 [facility] MCHC Auto (RBC) [Mass/Vol]Or dered By: KIM QUEVEDO on 11-30-2022 MCHC (RBC) [Mass/Vol] 29.5 g/dL Low 31-[address] [facility] MCV Auto (RBC) [Entitic vol] Ordered By: KIM QUEVEDO on 11-30-2022 MCV (RBC) [Entitic vol] 77.8 CU uM Low 80.0-100.0 [facility] Monocytes Auto (Bld) [#/Vol] Ordered By: KIM QUEVEDO on 11-30-2022 Monocytes (Bld) [#/Vol] 0.72 10:3/uL 0.2-0.8 [facility] Monocytes/100 WBC Auto (Bld) Ordered By: KIM QUEVEDO on 11-30-2022 Monocytes/100 WBC (Bld) 8.1 % 4.0-10.0 [facility] Neutrophils Auto (Bld) [#/Vo l]Ordered By: KIM QUEVEDO on 11-30-2022 Neutrophils (Bld) [#/Vol] 6.37 10:3/uL 2.0-7.0 [facility] Neutrophils/100 WBC Auto (Bl d)Ordered By: KIM QUEVEDO on 11-30-2022 Neutrophils/100 WBC (Bld) 71.4 % High 54.0-62.0 [facility] Nucleated RBC Auto (Bld) [#/ Vol]Ordered By: KIM QUEVEDO on 11-30-2022 Nucleated RBC (Bld) [#/Vol] 0.00 10:3/uL <0 [facility] Nucleated RBC/100 WBC Auto ( Bld) [Ratio]Ordered By: KIM QUEVEDO on 11-30-2022 Nucleated RBC/100 WBC (Bld) [Ratio] 0.0 /100WBC <0 [facility] Platelets Auto (Bld) [#/Vol] Ordered By: KIM QUEVEDO on 11-30-2022 Platelets (Bld) [#/Vol] 329 10:3/uL 130-440 [facility] RBC Auto (Bld) [#/Vol]Ordere d By: KIM QUEVEDO on 11-30-2022 RBC (Bld) [#/Vol] 2.79 10:6/uL Low 4.40-5.90 [facility] Serum or plasma anion gapOrd ered By: KIM QUEVEDO on 11-30-2022 Anion gap [Moles/Vol] 11 mmol/L 9-15 Sep [facility] Serum or plasma calcium zainab urement (mass/volume)Ordered By: KIM QUEVEDO on 11-30-2022 Calcium [Mass/Vol] 8.0 mg/dL Low 8.6-10.0 [facility] Serum or plasma carbon dioxi de, total measurement (moles/volume)Ordered By: KIM QUEVEDO on 11-30-2022 CO2 [Moles/Vol] 27 mmol/L 22-29 [facility] Serum or plasma chloride eduardo surement (moles/volume)Ordered By: KIM QUEVEDO on 11-30-2022 Chloride [Moles/Vol] 94 mmol/L Low 98-107 [facility] Serum or plasma creatinine m easurement (mass/volume)Ordered By: KIM QUEVEDO on 11-30-2022 Creatinine [Mass/Vol] 3.53 mg/dL High 0.67-1.[address] [facility] Serum or plasma glucose zainab urement (mass/volume)Ordered By: KIM QUEVEDO on 11-30-2022 Glucose [Mass/Vol] 69 mg/dL Low 70-100 [facility] Comment on above: INTREPRETATION FOR F ASTING BLOOD GLUCOSE: 70-100 mg/dl NORMAL GLUCOSE [id number] mg/dl IMPAIRED FASTING GLUCOSE (PRE-DIABETES)>125 mg/dl DIABETES - ON MORE THAN ONE TESTING Serum or plasma potassium me asurement (moles/volume)Ordered By: KIM QUEVEDO on 11-30-2022 Potassium [Moles/Vol] 5.0 mmol/L 3.6-5.[address] [facility] Serum or plasma sodium measu rement (moles/volume)Ordered By: KIM QUEVEDO on 11-30-2022 Sodium [Moles/Vol] 132 mmol/L Low 136-145 [facility] Serum or plasma urea nitroge n measurement (mass/volume)Ordered By: KIM QUEVEDO on 11-30-2022 Urea nitrogen [Mass/Vol] 30.1 mg/dL High 6.0-20.0 [facility] WBC Auto (Bld) [#/Vol]Ordere d By: KIM QUEVEDO on 11-30-2022 WBC (Bld) [#/Vol] 8.9 10:3/uL 3.9-10.6 [facility] Blood hemoglobin measurement (mass/volume)Ordered By: KIM QUEVEDO on 11-26-2022 Hemoglobin (Bld) [Mass/Vol] 7.1 g/dL Low 13.3-17.7 [facility] Hematocrit Auto (Bld) [Volum e fraction]Ordered By: KIM QUEVEDO on 11-26-2022 Hematocrit (Bld) [Volume fraction] 24.4 % Low 40.0-52.0 [facility] Hemoglobin Hematocriton 11-12 Hematocrit (Bld) [Volume fraction] 24.4 % Low 40.0-52.0 [facility] Comment on above: Performed By: #### H H #### [address] [id number] , Edi Irby M.D. FCAP, FASCP Hemoglobin (Bld) [Mass/Vol] 7.1 g/dL Low 13.3-17.7 [facility] Comment on above: Performed By: #### H H #### [address] [id number] , Edi Irby M.D. FCAP, FASCP Basic Metabolic Panelon 11-12 Anion gap [Moles/Vol] 14 mmol/L Normal 9-15 [facility] Comment on above: Performed By: #### C BCD #### [address] [id number] , Edi Irby M.D. FCAP, FASCP Calcium [Mass/Vol] 8.0 mg/dL Low 8.6-10.0 [facility] Comment on above: Performed By: #### C BCD #### [address] [id number] , Edi Irby M.D. FCAP, FASCP Chloride [Moles/Vol] 93 mmol/L Low 98-107 [facility] Comment on above: Performed By: #### C BCD #### [facility] [address] [place] [address] , Edi Irby M.D. FCAP, FASCP CO2 [Moles/Vol] 24 mmol/L Normal 22-29 [facility] Comment on above: Performed By: #### C BCD #### [facility] [address] [place] [address] , Edi Irby M.D. FCAP, FASCP Creatinine [Mass/Vol] 6.21 mg/dL High 0.67-1.17 [facility] Comment on above: Performed By: #### C BCD #### [address] [address] , Edi Irby M.D. FCAP, FASCP GFR/1.73 sq M.predicted among non-blacks MDRD (S/P/Bld) [Vol rate/Area] 10 mL/min/{1.73_m2} Normal [facility] Comment on above: Result Comment: THE GFR IS ESTIMATED USING THE MDRD STUDY EQUATION. *NOTE* IF THE RACE OF THE PATIENT WAS UNKNOWN AT THE TIME OF REGISTRATION, AND THE PATIENT IS , MULTIPLY THE EGFR RESULT PROVIDED BY 1.21. EGFR <60.0 COULD BE ABNORMAL. Performed By: #### C BCD #### [address] [address] , Edi Irby M.D. FCAP, FASCP Glucose [Mass/Vol] 79 mg/dL Normal 70-100 [facility] Comment on above: Result Comment: INTR EPRETATION FOR FASTING BLOOD GLUCOSE: 70-100 mg/dl NORMAL GLUCOSE TOLERANCE 100-125 mg/dl IMPAIRED FASTING GLUCOSE (PRE-DIABETES) >125 mg/dl DIABETES - ON MORE THAN ONE TESTING Performed By: #### C BCD #### [facility] [address] [place] [address] , Maribel Palencia, FASCP Potassium [Moles/Vol] 5.6 mmol/L High 3.6-5.0 [facility] Comment on above: Performed By: #### C BCD #### [facility] [address] [place], [place] [id number] , Edi Irby M.D. FCAP, FASCP Sodium [Moles/Vol] 131 mmol/L Low 136-145 [facility] Comment on above: Performed By: #### C BCD #### [address] [id number] , Maribel PalenciaAP, FASCP Urea nitrogen [Mass/Vol] 58.0 mg/dL High 6.0-20.0 [facility] Comment on above: Performed By: #### C BCD #### [address] [id number] , Edi Irby M.D. FCAP, FASCP Blood hemoglobin measurement (mass/volume)Ordered By: KIM QUEVEDO on 11-23-2022 Hemoglobin (Bld) [Mass/Vol] 7.2 g/dL Low 13.3-17.7 [facility] Complete Blood Counton 11-23 Hematocrit (Bld) [Volume fraction] 25.1 % Low 40.0-52.0 [facility] Comment on above: Performed By: #### L IVP6 #### [address] [id number] , Maribel PalenciaAP, FASCP Hemoglobin (Bld) [Mass/Vol] 7.2 g/dL Low 13.3-17.7 [facility] Comment on above: Performed By: #### L IVP6 #### [address] [id number] , Edi J. Macatol, M.D. FCAP, FASCP MCH (RBC) [Entitic mass] 22.9 pg Low 27.0-40.0 [facility] Comment on above: Performed By: #### L IVP6 #### [address] [id number] , Edi Irby M.D. FCAP, FASCP Mean Corpusc Hgb Concentration 28.7 g/dL Low 31.0-36.0 [facility] Comment on above: Performed By: #### L IVP6 #### [address] [id number] , Edi Irby M.D. FCAP, FASCP Mean Corpuscular Volume 79.9 CU uM Low 80.0-100.0 [facility] Comment on above: Performed By: #### L IVP6 #### [address] [id number] , Edi Irby M.D. FCAP, FASCP Platelet Count 442 10:3/uL High 130-440 [facility] Comment on above: Performed By: #### L IVP6 #### [address] [id number] , Edi Irby M.D. FCAP, FASCP Red Blood Cell Count 3.14 10:6/uL Low 4.40-5.90 [facility] Comment on above: Performed By: #### L IVP6 #### [address] [id number] , Edi Irby M.D. FCAP, FASCP Red Cell Distribution 15.7 High 11.5-14.5 [facility] Comment on above: Performed By: #### L IVP6 #### [address] [id number] , Edi J. Macatol, M.D. FCAP, FASCP White Blood Cell Count 10.1 10:3/uL Normal 3.9-10.6 [facility] Comment on above: Performed By: #### L IVP6 #### [facility] [address] [place] [address] , Edi Irby M.D. FCAP, FASCP Erythrocyte distribution wid th Auto (RBC) [Ratio]Ordered By: KIM QUEVEDO on 11-23-2022 Erythrocyte distribution width (RBC) [Ratio] 15.7 % High 11.5-14.5 [facility] Glomerular filtration rate/1 .73 sq M.predicted [Volume Rate/Area] in Serum, Plasma orOrdered By: KIM QUEVEDO on 11-23-2022 GFR/1.73 sq M.predicted (S/P/Bld) [Vol rate/Area] 10 mL/min [facility] Comment on above: EGFR <60.0 COULD BE ABNORMAL.THE GFR IS ESTIMATED USING THE MDRD STUDY EQUATION.*NOTE* IF THE RACE OF THE PATIENT WAS UNKNOWN AT THE TIME OFREGISTRATION, AND THE PATIENT IS , MULTIPLYTHE EGFR RESULT PROVIDED BY 1.21. Hematocrit Auto (Bld) [Volum e fraction]Ordered By: KIM QUEVEDO on 11-23-2022 Hematocrit (Bld) [Volume fraction] 25.1 % Low 40.0-52.0 [facility] MCH Auto (RBC) [Entitic mass ]Ordered By: KIM QUEVEDO on 11-23-2022 MCH (RBC) [Entitic mass] 22.9 pg Low 27-40 [facility] MCHC Auto (RBC) [Mass/Vol]Or dered By: KIM QUEVEDO on 11-23-2022 MCHC (RBC) [Mass/Vol] 28.7 g/dL Low 31-36 [facility] MCV Auto (RBC) [Entitic vol] Ordered By: KIM QUEVEDO on 11-23-2022 MCV (RBC) [Entitic vol] 79.9 CU uM Low 80.0-100.0 [facility] Platelets Auto (Bld) [#/Vol] Ordered By: KIM QUEVEDO on 11-23-2022 Platelets (Bld) [#/Vol] 442 10:3/uL High 130-440 [facility] RBC Auto (Bld) [#/Vol]Ordere d By: KIM QUEVEDO on 11-23-2022 RBC (Bld) [#/Vol] 3.14 10:6/uL Low 4.40-5.90 [facility] Serum or plasma anion gapOrd ered By: KIM QUEVEDO on 11-23-2022 Anion gap [Moles/Vol] 14 mmol/L 9-[address] [facility] Serum or plasma calcium zainab urement (mass/volume)Ordered By: KIM QUEVEDO on 11-23-2022 Calcium [Mass/Vol] 8.0 mg/dL Low 8.6-10.0 [facility] Serum or plasma carbon dioxi de, total measurement (moles/volume)Ordered By: KIM QUEVEDO on 11-23-2022 CO2 [Moles/Vol] 24 mmol/L [facility] Serum or plasma chloride eduardo surement (moles/volume)Ordered By: KIM QUEVEDO on 11-23-2022 Chloride [Moles/Vol] 93 mmol/L Low 98-107 [facility] Serum or plasma creatinine m easurement (mass/volume)Ordered By: KIM QUEVEDO on 11-23-2022 Creatinine [Mass/Vol] 6.21 mg/dL High 0.67-1.[address] [facility] Serum or plasma glucose zainab urement (mass/volume)Ordered By: KIM QUEVEDO on 11-23-2022 Glucose [Mass/Vol] 79 mg/dL 70-100 [facility] Comment on above: INTREPRETATION FOR F ASTING BLOOD GLUCOSE: 70-100 mg/dl NORMAL GLUCOSE [id number] mg/dl IMPAIRED FASTING GLUCOSE (PRE-DIABETES)>125 mg/dl DIABETES - ON MORE THAN ONE TESTING Serum or plasma potassium me asurement (moles/volume)Ordered By: KIM QUEVEDO on 11-23-2022 Potassium [Moles/Vol] 5.6 mmol/L High 3.6-5.[address] [facility] Serum or plasma sodium measu rement (moles/volume)Ordered By: KIM QUEVEDO on 11-23-2022 Sodium [Moles/Vol] 131 mmol/L Low 136-145 [facility] Serum or plasma urea nitroge n measurement (mass/volume)Ordered By: KIM QUEVEDO on 11-23-2022 Urea nitrogen [Mass/Vol] 58.0 mg/dL High 6.0-20.0 [facility] WBC Auto (Bld) [#/Vol]Ordere d By: KIM QUEVEDO on 11-23-2022 WBC (Bld) [#/Vol] 10.1 10:3/uL 3.9-10.6 [facility] Basic Metabolic Panelon 05 Anion gap [Moles/Vol] 16 mmol/L High 9-15 [facility] Comment on above: Performed By: #### C BCD #### [facility] [address] [place], [place] [id number] , Edi Irby M.D. FCAP, FASCP Calcium [Mass/Vol] 8.6 mg/dL Normal 8.6-10.0 [facility] Comment on above: Performed By: #### C BCD #### [facility] [address] [place], [place] [id number] , Maribel PalenciaAP, FASCP Chloride [Moles/Vol] 91 mmol/L Low 98-107 [facility] Comment on above: Performed By: #### C BCD #### [facility] [address] [facility] [place] [id number] , Edi Irby M.D. FCAP, FASCP CO2 [Moles/Vol] 24 mmol/L Normal 22-29 [facility] Comment on above: Performed By: #### C BCD #### [facility] [address] [place], [place] [id number] , Edi Irby M.D. FCAP, FASCP Creatinine [Mass/Vol] 4.97 mg/dL High 0.67-1.17 [facility] Comment on above: Performed By: #### C BCD #### [facility] [address] [place] [address] , Edi Irby M.D. FCAP, FASCP GFR/1.73 sq M.predicted among non-blacks MDRD (S/P/Bld) [Vol rate/Area] 13 mL/min/{1.73_m2} Normal [facility] Comment on above: Result Comment: THE GFR IS ESTIMATED USING THE MDRD STUDY EQUATION. *NOTE* IF THE RACE OF THE PATIENT WAS UNKNOWN AT THE TIME OF REGISTRATION, AND THE PATIENT IS , MULTIPLY THE EGFR RESULT PROVIDED BY 1.21. EGFR <60.0 COULD BE ABNORMAL. Performed By: #### C BCD #### [address] [id number] , Edi Irby M.D. FCAP, FASCP Glucose [Mass/Vol] 56 mg/dL Low 70-100 [facility] Comment on above: Result Comment: INTR EPRETATION FOR FASTING BLOOD GLUCOSE: 70-100 mg/dl NORMAL GLUCOSE TOLERANCE 100-125 mg/dl IMPAIRED FASTING GLUCOSE (PRE-DIABETES) >125 mg/dl DIABETES - ON MORE THAN ONE TESTING Performed By: #### C BCD #### [address] [address] , Edi Irby M.D. FCAP, FASCP Potassium [Moles/Vol] 5.5 mmol/L High 3.6-5.0 [facility] Comment on above: Performed By: #### C BCD #### [address] [address] , Edi Irby M.D. FCAP, FASCP Sodium [Moles/Vol] 131 mmol/L Low 136-145 [facility] Comment on above: Performed By: #### C BCD #### [address] [phone] , Edi Irby M.D. FCAP, FASCP Urea nitrogen [Mass/Vol] 44.3 mg/dL High 6.0-20.0 [facility] Comment on above: Performed By: #### C BCD #### [facility] [address] [place], [place] [phone] , Edi Irby M.D. FCAP, FASCP Basophils Auto (Bld) [#/Vol] Ordered By: KIM QUEVEDO on 11-16-2022 Basophils (Bld) [#/Vol] 0.07 10:3/uL 0.0-0.2 [facility] Basophils/100 WBC Auto (Bld) Ordered By: KIM QUEVEDO on 11-16-2022 Basophils/100 WBC (Bld) 0.6 % 0-1.0 [facility] Blood hemoglobin measurement (mass/volume)Ordered By: KIM QUEVEDO on 11-16-2022 Hemoglobin (Bld) [Mass/Vol] 8.4 g/dL Low 13.3-17.7 [facility] CBC With Differentialon Basophils Absolute Auto 0.07 10:3/uL Normal 0.0-0.2 [facility] Comment on above: Performed By: #### C BCD #### [facility] [address] [place], [place] [id number] , Edi Irby M.D. FCAP, FASCP Basophils/100 WBC (Bld) 0.6 % Normal 0-1.0 [facility] Comment on above: Performed By: #### C BCD #### [facility] [address] [place] [address] , Edi Irby M.D. FCAP, FASCP Differential Type? Auto Differential Normal [facility] Comment on above: Performed By: #### C BCD #### [facility] [address] [place], [place] [id number] , Edi Irby M.D. FCAP, FASCP Eosinophils Absolute Auto 0.17 10:3/uL Normal 0.0-0.5 [facility] Comment on above: Performed By: #### C BCD #### [address] [id number] , Edi Irby M.D. FCAP, FASCP Eosinophils/100 WBC (Bld) 1.5 % Normal 0.0-3.0 [facility] Comment on above: Performed By: #### C BCD #### [address] [id number] , Edi Irby M.D. FCAP, FASCP Hematocrit (Bld) [Volume fraction] 28.8 % Low 40.0-52.0 [facility] Comment on above: Performed By: #### C BCD #### [address] [id number] , Edi Irby M.D. FCAP, FASCP Hemoglobin (Bld) [Mass/Vol] 8.4 g/dL Low 13.3-17.7 [facility] Comment on above: Performed By: #### C BCD #### [address] [id number] , Edi Irby M.D. FCAP, FASCP Immature Gran Absolute Auto 0.05 10:3/uL Normal 0.01-0.2 [facility] Comment on above: Performed By: #### C BCD #### [address] [id number] , Edi Irby M.D. FCAP, FASCP Immature granulocytes/100 WBC (Bld) 0.4 % Normal 0-0.9 [facility] Comment on above: Performed By: #### C BCD #### [address] [id number] , Edi Irby M.D. FCAP, FASCP Lymphocytes Absolute Auto 1.66 10:3/uL Normal 1.5-4.0 [facility] Comment on above: Performed By: #### C BCD #### [address] [id number] , Edi Irby M.D. FCAP, FASCP Lymphocytes/100 WBC (Bld) 14.3 % Low 20.0-40.0 [facility] Comment on above: Performed By: #### C BCD #### [address] [id number] , Edi Irby M.D. FCAP, FASCP MCH (RBC) [Entitic mass] 23.6 pg Low 27.0-40.0 [facility] Comment on above: Performed By: #### C BCD #### [address] [id number] , Edi Irby M.D. FCAP, FASCP Mean Corpusc Hgb Concentration 29.2 g/dL Low 31.0-36.0 [facility] Comment on above: Performed By: #### C BCD #### [address] [id number] , Edi Irby M.D. FCAP, FASCP Mean Corpuscular Volume 80.9 CU uM Normal 80.0-100.0 [facility] Comment on above: Performed By: #### C BCD #### [address] [id number] , Edi Irby M.D. FCAP, FASCP Monocytes Absolute Auto 0.90 10:3/uL High 0.2-0.8 [facility] Comment on above: Performed By: #### C BCD #### [address] [id number] , Edi Irby M.D. FCAP, FASCP Monocytes/100 WBC (Bld) 7.7 % Normal 4.0-10.0 [facility] Comment on above: Performed By: #### C BCD #### [address] [id number] , Edi Irby M.D. FCAP, FASCP Neutrophils Absolute Auto 8.78 10:3/uL High 2.0-7.0 [facility] Comment on above: Performed By: #### C BCD #### [address] [id number] , Edi Irby M.D. FCAP, FASCP Neutrophils/100 WBC (Bld) 75.5 % High 54.0-62.0 [facility] Comment on above: Performed By: #### C BCD #### [address] [id number] , Edi Irby M.D. FCAP, FASCP Nucleated RBC's % Auto 0.0 /100WBC Normal -0 [facility] Comment on above: Performed By: #### C BCD #### [address] [id number] , Edi Irby M.D. FCAP, FASCP Nucleated RBC's Absolute Auto 0.00 10:3/uL Normal -0 [facility] Comment on above: Performed By: #### C BCD #### [address] [id number] , Edi Irby M.D. FCAP, FASCP Platelet Count 391 10:3/uL Normal 130-440 [facility] Comment on above: Performed By: #### C BCD #### [address] [address] , Edi Irby M.D. FCAP, FASCP Red Blood Cell Count 3.56 10:6/uL Low 4.40-5.90 [facility] Comment on above: Performed By: #### C BCD #### [facility] [address] [place] [address] , Edi Irby M.D. FCAP, FASCP Red Cell Distribution 15.4 High 11.5-14.5 [facility] Comment on above: Performed By: #### C BCD #### [facility] [address] [place], [place] [address]60[address] , Edi Irby M.D. FCAP, FASCP White Blood Cell Count 11.6 10:3/uL High 3.9-10.6 [facility] Comment on above: Performed By: #### C BCD #### [facility] [address] [place], [place] [phone] , Edi Irby M.D. FCAP, FASCP Differential cell count meth od - BloodOrdered By: KIM QUEVEDO on 11-16-2022 Differential cell count method Nom (Bld) Auto differential [facility] Eosinophils Auto (Bld) [#/Vo l]Ordered By: KIM QUEVEDO on 11-16-2022 Eosinophils (Bld) [#/Vol] 0.17 10:3/uL 0.0-0.5 [facility] Eosinophils/100 WBC Auto (Bl d)Ordered By: KIM QUEVEDO on 11-16-2022 Eosinophils/100 WBC (Bld) 1.5 % 0.0-3.0 [facility] Erythrocyte distribution wid th Auto (RBC) [Ratio]Ordered By: KIM QUEVEDO on 11-16-2022 Erythrocyte distribution width (RBC) [Ratio] 15.4 % High 11.5-14.5 [facility] Glomerular filtration rate/1 .73 sq M.predicted [Volume Rate/Area] in Serum, Plasma orOrdered By: KIM QUEVEDO on 11-16-2022 GFR/1.73 sq M.predicted (S/P/Bld) [Vol rate/Area] 13 mL/min [facility] Comment on above: EGFR <60.0 COULD BE ABNORMAL.THE GFR IS ESTIMATED USING THE MDRD STUDY EQUATION.*NOTE* IF THE RACE OF THE PATIENT WAS UNKNOWN AT THE TIME OFREGISTRATION, AND THE PATIENT IS , MULTIPLYTHE EGFR RESULT PROVIDED BY 1.21. Hematocrit Auto (Bld) [Volum e fraction]Ordered By: KIM QUEVEDO on 11-16-2022 Hematocrit (Bld) [Volume fraction] 28.8 % Low 40.0-52.0 [facility] Immature granulocytes Auto ( Bld) [#/Vol]Ordered By: KIM QUEVEDO on 11-16-2022 Immature granulocytes (Bld) [#/Vol] 0.05 10:3/uL 0.01-0.2 [facility] Immature granulocytes/100 WB C Auto (Bld)Ordered By: KIM QUEVEDO on 11-16-2022 Immature granulocytes/100 WBC (Bld) 0.4 % 0-0.9 [facility] Lymphocytes Auto (Bld) [#/Vo l]Ordered By: KIM QUEVEDO on 11-16-2022 Lymphocytes (Bld) [#/Vol] 1.66 10:3/uL 1.5-4.0 [facility] Lymphocytes/100 WBC Auto (Bl d)Ordered By: KIM QUEVEDO on 11-16-2022 Lymphocytes/100 WBC (Bld) 14.3 % Low 20.0-40.0 [facility] MCH Auto (RBC) [Entitic mass ]Ordered By: KIM QUEVEDO on 11-16-2022 MCH (RBC) [Entitic mass] 23.6 pg Low 27-40 [facility] MCHC Auto (RBC) [Mass/Vol]Or dered By: KIM QUEVEDO on 11-16-2022 MCHC (RBC) [Mass/Vol] 29.2 g/dL Low 31-[address] [facility] MCV Auto (RBC) [Entitic vol] Ordered By: KIM QUEVEDO on 11-16-2022 MCV (RBC) [Entitic vol] 80.9 CU uM 80.0-100.0 [facility] Monocytes Auto (Bld) [#/Vol] Ordered By: KIM QUEVEDO on 11-16-2022 Monocytes (Bld) [#/Vol] 0.90 10:3/uL High 0.2-0.8 [facility] Monocytes/100 WBC Auto (Bld) Ordered By: KIM QUEVEDO on 11-16-2022 Monocytes/100 WBC (Bld) 7.7 % 4.0-10.0 [facility] Neutrophils Auto (Bld) [#/Vo l]Ordered By: KIM QUEVEDO on 11-16-2022 Neutrophils (Bld) [#/Vol] 8.78 10:3/uL High 2.0-7.0 [facility] Neutrophils/100 WBC Auto (Bl d)Ordered By: KIM QUEVEDO on 11-16-2022 Neutrophils/100 WBC (Bld) 75.5 % High 54.0-62.0 [facility] Nucleated RBC Auto (Bld) [#/ Vol]Ordered By: KIM QUEVEDO on 11-16-2022 Nucleated RBC (Bld) [#/Vol] 0.00 10:3/uL <0 [facility] Nucleated RBC/100 WBC Auto ( Bld) [Ratio]Ordered By: KIM QUEVEDO on 11-16-2022 Nucleated RBC/100 WBC (Bld) [Ratio] 0.0 /100WBC <0 [facility] Platelets Auto (Bld) [#/Vol] Ordered By: KIM QUEVEDO on 11-16-2022 Platelets (Bld) [#/Vol] 391 10:3/uL 130-440 [facility] RBC Auto (Bld) [#/Vol]Ordere d By: KIM QUEVEDO on 11-16-2022 RBC (Bld) [#/Vol] 3.56 10:6/uL Low 4.40-5.90 [facility] Serum or plasma anion gapOrd ered By: KIM QUEVEDO on 11-16-2022 Anion gap [Moles/Vol] 16 mmol/L High 9-[address] [facility] Serum or plasma calcium zainab urement (mass/volume)Ordered By: KIM QUEVEDO on 11-16-2022 Calcium [Mass/Vol] 8.6 mg/dL 8.6-10.0 [facility] Serum or plasma carbon dioxi de, total measurement (moles/volume)Ordered By: KIM QUEVEDO on 11-16-2022 CO2 [Moles/Vol] 24 mmol/L 22-29 [facility] Serum or plasma chloride eudardo surement (moles/volume)Ordered By: KIM QUEVEDO on 11-16-2022 Chloride [Moles/Vol] 91 mmol/L Low 98-107 [facility] Serum or plasma creatinine m easurement (mass/volume)Ordered By: KIM QUEVEDO on 11-16-2022 Creatinine [Mass/Vol] 4.97 mg/dL High 0.67-1.[address] [facility] Serum or plasma glucose zainab urement (mass/volume)Ordered By: KIM QUEVEDO on 11-16-2022 Glucose [Mass/Vol] 56 mg/dL Low 70-100 [facility] Comment on above: INTREPRETATION FOR F ASTING BLOOD GLUCOSE: 70-100 mg/dl NORMAL GLUCOSE [id number] mg/dl IMPAIRED FASTING GLUCOSE (PRE-DIABETES)>125 mg/dl DIABETES - ON MORE THAN ONE TESTING Serum or plasma potassium me asurement (moles/volume)Ordered By: KIM QUEVEDO on 11-16-2022 Potassium [Moles/Vol] 5.5 mmol/L High 3.6-5.[address] [facility] Serum or plasma sodium measu rement (moles/volume)Ordered By: KIM QUEVEDO on 11-16-2022 Sodium [Moles/Vol] 131 mmol/L Low 136-145 [facility] Serum or plasma urea nitroge n measurement (mass/volume)Ordered By: KIM QUEVEDO on 11-16-2022 Urea nitrogen [Mass/Vol] 44.3 mg/dL High 6.0-20.0 [facility] WBC Auto (Bld) [#/Vol]Ordere d By: KIM QUEVEDO on 11-16-2022 WBC (Bld) [#/Vol] 11.6 10:3/uL High 3.9-10.6 [facility] Basic Metabolic Panelon 04-2 Anion gap [Moles/Vol] 12 mmol/L Normal 9-15 [facility] Comment on above: Performed By: #### L IVP6 #### [facility] [address] [place], [place] [id number] , Edi Irby M.D. FCAP, FASCP Calcium [Mass/Vol] 8.7 mg/dL Normal 8.6-10.0 [facility] Comment on above: Performed By: #### L IVP6 #### [facility] [address] [place], [place] [address] , Edi Irby M.D. FCAP, FASCP Chloride [Moles/Vol] 94 mmol/L Low 98-107 [facility] Comment on above: Performed By: #### L IVP6 #### [facility] [address] [place], [place] [id number] , Edi Irby M.D. FCAP, FASCP CO2 [Moles/Vol] 26 mmol/L Normal 22-29 [facility] Comment on above: Performed By: #### L IVP6 #### [facility] [address] [place], [place] [id number] , Edi Irby M.D. FCAP, FASCP Creatinine [Mass/Vol] 4.44 mg/dL High 0.67-1.17 [facility] Comment on above: Performed By: #### L IVP6 #### [address] [id number] , Edi Irby M.D. FCAP, FASCP GFR/1.73 sq M.predicted among non-blacks MDRD (S/P/Bld) [Vol rate/Area] 14 mL/min/{1.73_m2} Normal [facility] Comment on above: Result Comment: THE GFR IS ESTIMATED USING THE MDRD STUDY EQUATION. *NOTE* IF THE RACE OF THE PATIENT WAS UNKNOWN AT THE TIME OF REGISTRATION, AND THE PATIENT IS , MULTIPLY THE EGFR RESULT PROVIDED BY 1.21. EGFR <60.0 COULD BE ABNORMAL. Performed By: #### L IVP6 #### [address] [id number] , Edi Irby M.D. FCAP, FASCP Glucose [Mass/Vol] 62 mg/dL Low 70-100 [facility] Comment on above: Result Comment: INTR EPRETATION FOR FASTING BLOOD GLUCOSE: 70-100 mg/dl NORMAL GLUCOSE TOLERANCE 100-125 mg/dl IMPAIRED FASTING GLUCOSE (PRE-DIABETES) >125 mg/dl DIABETES - ON MORE THAN ONE TESTING Performed By: #### L IVP6 #### [address] [id number] , Edi Irby M.D. FCAP, FASCP Potassium [Moles/Vol] 4.9 mmol/L Normal 3.6-5.0 [facility] Comment on above: Performed By: #### L IVP6 #### [address] [id number] , Edi Irby M.D. FCAP, FASCP Sodium [Moles/Vol] 132 mmol/L Low 136-145 [facility] Comment on above: Performed By: #### L IVP6 #### [address] [id number] , Edi Irby M.D. FCAP, FASCP Urea nitrogen [Mass/Vol] 41.8 mg/dL High 6.0-20.0 [facility] Comment on above: Performed By: #### L IVP6 #### [address] [id number] , Edi Irby M.D. FCAP, FASCP Basophils Auto (Bld) [#/Vol] Ordered By: ROBERTO QUEVEDO on 04-28-2023 Basophils (Bld) [#/Vol] 0.05 10:3/uL 0.0-0.2 [facility] Basophils/100 WBC Auto (Bld) Ordered By: ROBERTO QUEVEDO on 11-09-2022 Basophils/100 WBC (Bld) 0.4 % 0-1.0 [facility] Blood hemoglobin measurement (mass/volume)Ordered By: ROBERTO QUEVEDO on 11-09-2022 Hemoglobin (Bld) [Mass/Vol] 8.6 g/dL Low 13.3-17.7 [facility] CBC With Differentialon 10-14 Basophils Absolute Auto 0.05 10:3/uL Normal 0.0-0.2 [facility] Comment on above: Performed By: #### L IVP6 #### [address] [id number] , Edi Irby M.D. FCAP, FASCP Basophils/100 WBC (Bld) 0.4 % Normal 0-1.0 [facility] Comment on above: Performed By: #### L IVP6 #### [address] [id number] , Edi Irby M.D. FCAP, FASCP Differential Type? Auto Differential Normal [facility] Comment on above: Performed By: #### L IVP6 #### [address] [id number] , Edi Irby M.D. FCAP, FASCP Eosinophils Absolute Auto 0.21 10:3/uL Normal 0.0-0.5 [facility] Comment on above: Performed By: #### L IVP6 #### [facility] [address] [place] [id number] , Edi Irby M.D. FCAP, FASCP Eosinophils/100 WBC (Bld) 1.8 % Normal 0.0-3.0 [facility] Comment on above: Performed By: #### L IVP6 #### [address] [id number] , Edi Irby M.D. FCAP, FASCP Hematocrit (Bld) [Volume fraction] 28.8 % Low 40.0-52.0 [facility] Comment on above: Performed By: #### L IVP6 #### [address] [id number] , Edi Irby M.D. FCAP, FASCP Hemoglobin (Bld) [Mass/Vol] 8.6 g/dL Low 13.3-17.7 [facility] Comment on above: Performed By: #### L IVP6 #### [address] [id number] , Edi Irby M.D. FCAP, FASCP Immature Gran Absolute Auto 0.05 10:3/uL Normal 0.01-0.2 [facility] Comment on above: Performed By: #### L IVP6 #### [address] [id number] , Edi Irby M.D. FCAP, FASCP Immature granulocytes/100 WBC (Bld) 0.4 % Normal 0-0.9 [facility] Comment on above: Performed By: #### L IVP6 #### [address] [id number] , Edi Irby M.D. FCAP, FASCP Lymphocytes Absolute Auto 1.78 10:3/uL Normal 1.5-4.0 [facility] Comment on above: Performed By: #### L IVP6 #### [address] [id number] , Edi Irby M.D. FCAP, FASCP Lymphocytes/100 WBC (Bld) 15.1 % Low 20.0-40.0 [facility] Comment on above: Performed By: #### L IVP6 #### [address] [id number] , Edi Irby M.D. FCAP, FASCP MCH (RBC) [Entitic mass] 24.8 pg Low 27.0-40.0 [facility] Comment on above: Performed By: #### L IVP6 #### [address] [id number] , Edi Irby M.D. FCAP, FASCP Mean Corpusc Hgb Concentration 29.9 g/dL Low 31.0-36.0 [facility] Comment on above: Performed By: #### L IVP6 #### [address] [id number] , Edi Irby M.D. FCAP, FASCP Mean Corpuscular Volume 83.0 CU uM Normal 80.0-100.0 [facility] Comment on above: Performed By: #### L IVP6 #### [address] [id number] , Edi Irby M.D. FCAP, FASCP Monocytes Absolute Auto 0.95 10:3/uL High 0.2-0.8 [facility] Comment on above: Performed By: #### L IVP6 #### [address] [id number] , Edi Irby M.D. FCAP, FASCP Monocytes/100 WBC (Bld) 8.1 % Normal 4.0-10.0 [facility] Comment on above: Performed By: #### L IVP6 #### [address] [id number] , Edi Irby M.D. FCAP, FASCP Neutrophils Absolute Auto 8.73 10:3/uL High 2.0-7.0 [facility] Comment on above: Performed By: #### L IVP6 #### [address] [id number] , Edi Irby M.D. FCAP, FASCP Neutrophils/100 WBC (Bld) 74.2 % High 54.0-62.0 [facility] Comment on above: Performed By: #### L IVP6 #### [address] [id number] , Edi Irby M.D. FCAP, FASCP Nucleated RBC's % Auto 0.0 /100WBC Normal -0 [facility] Comment on above: Performed By: #### L IVP6 #### [address] [id number] , Edi Irby M.D. FCAP, FASCP Nucleated RBC's Absolute Auto 0.00 10:3/uL Normal -0 [facility] Comment on above: Performed By: #### L IVP6 #### [address] [id number] , Edi Irby M.D. FCAP, FASCP Platelet Count 343 10:3/uL Normal 130-440 [facility] Comment on above: Performed By: #### L IVP6 #### [address] [id number] , Edi Irby M.D. FCAP, FASCP Red Blood Cell Count 3.47 10:6/uL Low 4.40-5.90 [facility] Comment on above: Performed By: #### L IVP6 #### [address] [id number] , Edi Irby M.D. FCAP, FASCP Red Cell Distribution 15.2 High 11.5-14.5 [facility] Comment on above: Performed By: #### L IVP6 #### [facility] [address] [place] [id number] , Edi Irby M.D. FCAP, FASCP White Blood Cell Count 11.8 10:3/uL High 3.9-10.6 [facility] Comment on above: Performed By: #### L IVP6 #### [facility] [address] [place] [address] , Edi Irby M.D. FCAP, FASCP Differential cell count meth od - BloodOrdered By: ROBERTO QUEVEDO on 11-09-2022 Differential cell count method Nom (Bld) Auto differential [facility] Eosinophils Auto (Bld) [#/Vo l]Ordered By: ROBERTO QUEVEDO on 11-09-2022 Eosinophils (Bld) [#/Vol] 0.21 10:3/uL 0.0-0.5 [facility] Eosinophils/100 WBC Auto (Bl d)Ordered By: ROBERTO QUEVEDO on 11-09-2022 Eosinophils/100 WBC (Bld) 1.8 % 0.0-3.0 [facility] Erythrocyte distribution wid th Auto (RBC) [Ratio]Ordered By: ROEBRTO QUEVEDO on 11-09-2022 Erythrocyte distribution width (RBC) [Ratio] 15.2 % High 11.5-14.5 [facility] Glomerular filtration rate/1 .73 sq M.predicted [Volume Rate/Area] in Serum, Plasma orOrdered By: ROBERTO QUEVEDO on 11-09-2022 GFR/1.73 sq M.predicted (S/P/Bld) [Vol rate/Area] 14 mL/min [facility] Comment on above: EGFR <60.0 COULD BE ABNORMAL.THE GFR IS ESTIMATED USING THE MDRD STUDY EQUATION.*NOTE* IF THE RACE OF THE PATIENT WAS UNKNOWN AT THE TIME OFREGISTRATION, AND THE PATIENT IS , MULTIPLYTHE EGFR RESULT PROVIDED BY 1.21. Hematocrit Auto (Bld) [Volum e fraction]Ordered By: ROBERTO QUEVEDO on 04-28-2023 Hematocrit (Bld) [Volume fraction] 28.8 % Low 40.0-52.0 [facility] Immature granulocytes Auto ( Bld) [#/Vol]Ordered By: ROBERTO QUEVEDO on 11-09-2022 Immature granulocytes (Bld) [#/Vol] 0.05 10:3/uL 0.01-0.2 [facility] Immature granulocytes/100 WB C Auto (Bld)Ordered By: ROEBRTO QUEVEDO on 11-09-2022 Immature granulocytes/100 WBC (Bld) 0.4 % 0-0.9 [facility] Lymphocytes Auto (Bld) [#/Vo l]Ordered By: ROBERTO QUEVEDO on 11-09-2022 Lymphocytes (Bld) [#/Vol] 1.78 10:3/uL 1.5-4.0 [facility] Lymphocytes/100 WBC Auto (Bl d)Ordered By: ROBERTO QUEVEDO on 11-09-2022 Lymphocytes/100 WBC (Bld) 15.1 % Low 20.0-40.0 [facility] MCH Auto (RBC) [Entitic mass ]Ordered By: ROBERTO QUEVEDO on 11-09-2022 MCH (RBC) [Entitic mass] 24.8 pg Low 27-40 [facility] MCHC Auto (RBC) [Mass/Vol]Or dered By: ROBERTO QUEVEDO on 11-09-2022 MCHC (RBC) [Mass/Vol] 29.9 g/dL Low 31-[address] [facility] MCV Auto (RBC) [Entitic vol] Ordered By: ROBERTO QUEVEDO on 11-09-2022 MCV (RBC) [Entitic vol] 83.0 CU uM 80.0-100.0 [facility] Monocytes Auto (Bld) [#/Vol] Ordered By: ROBERTO QUEVEDO on 11-09-2022 Monocytes (Bld) [#/Vol] 0.95 10:3/uL High 0.2-0.8 [facility] Monocytes/100 WBC Auto (Bld) Ordered By: ROBERTO QUEVEDO on 11-09-2022 Monocytes/100 WBC (Bld) 8.1 % 4.0-10.0 [facility] Neutrophils Auto (Bld) [#/Vo l]Ordered By: ROBERTO QUEVEDO on 11-09-2022 Neutrophils (Bld) [#/Vol] 8.73 10:3/uL High 2.0-7.0 [facility] Neutrophils/100 WBC Auto (Bl d)Ordered By: ROBERTO QUEVEDO on 11-09-2022 Neutrophils/100 WBC (Bld) 74.2 % High 54.0-62.0 [facility] Nucleated RBC Auto (Bld) [#/ Vol]Ordered By: ROBERTO QUEVEDO on 11-09-2022 Nucleated RBC (Bld) [#/Vol] 0.00 10:3/uL <0 [facility] Nucleated RBC/100 WBC Auto ( Bld) [Ratio]Ordered By: ROBERTO QUEVEDO on 11-09-2022 Nucleated RBC/100 WBC (Bld) [Ratio] 0.0 /100WBC <0 [facility] Platelets Auto (Bld) [#/Vol] Ordered By: ROBERTO QUEVEDO on 11-09-2022 Platelets (Bld) [#/Vol] 343 10:3/uL 130-440 [facility] RBC Auto (Bld) [#/Vol]Ordere d By: ROBERTO QUEVEDO on 11-09-2022 RBC (Bld) [#/Vol] 3.47 10:6/uL Low 4.40-5.90 [facility] Serum or plasma anion gapOrd ered By: ROBERTO QUEVEDO on 11-09-2022 Anion gap [Moles/Vol] 12 mmol/L 9-[address] [facility] Serum or plasma calcium zainab urement (mass/volume)Ordered By: ROBERTO QUEVEDO on 11-09-2022 Calcium [Mass/Vol] 8.7 mg/dL 8.6-10.0 [facility] Serum or plasma carbon dioxi de, total measurement (moles/volume)Ordered By: ROBERTO QUEVEDO on 11-09-2022 CO2 [Moles/Vol] 26 mmol/L [facility] Serum or plasma chloride eduardo surement (moles/volume)Ordered By: ROBERTO QUEVEDO on 11-09-2022 Chloride [Moles/Vol] 94 mmol/L Low 98-107 [facility] Serum or plasma creatinine m easurement (mass/volume)Ordered By: ROBERTO QUEVEDO on 11-09-2022 Creatinine [Mass/Vol] 4.44 mg/dL High 0.67-1.[address] [facility] Serum or plasma glucose zainab urement (mass/volume)Ordered By: ROBERTO QUEVEDO on 11-09-2022 Glucose [Mass/Vol] 62 mg/dL Low 70-100 [facility] Comment on above: INTREPRETATION FOR F ASTING BLOOD GLUCOSE: 70-100 mg/dl NORMAL GLUCOSE [id number] mg/dl IMPAIRED FASTING GLUCOSE (PRE-DIABETES)>125 mg/dl DIABETES - ON MORE THAN ONE TESTING Serum or plasma potassium me asurement (moles/volume)Ordered By: ROBERTO QUEVEDO on 11-09-2022 Potassium [Moles/Vol] 4.9 mmol/L 3.6-5.[address] [facility] Serum or plasma sodium measu rement (moles/volume)Ordered By: ROBERTO QUEVEDO on 11-09-2022 Sodium [Moles/Vol] 132 mmol/L Low 136-145 [facility] Serum or plasma urea nitroge n measurement (mass/volume)Ordered By: ROBERTO QUEVEDO on 11-09-2022 Urea nitrogen [Mass/Vol] 41.8 mg/dL High 6.0-20.0 [facility] WBC Auto (Bld) [#/Vol]Ordere d By: ROBERTO QUEVEDO on 11-09-2022 WBC (Bld) [#/Vol] 11.8 10:3/uL High 3.9-10.6 [facility] Basic Metabolic Panelon 04-2 Anion gap [Moles/Vol] 19 mmol/L High 9-15 [facility] Comment on above: Performed By: #### C HEM7, CP1 #### [facility] [address] [place] [address] , Edi Irby M.D. FCAP, FASCP Calcium [Mass/Vol] 8.7 mg/dL Normal 8.6-10.0 [facility] Comment on above: Performed By: #### C HEM7, CP1 #### [address] [id number] , Maribel PalenciaAP, FASCP Chloride [Moles/Vol] 92 mmol/L Low 98-107 [facility] Comment on above: Performed By: #### C HEM7, CP1 #### [address] [id number] , Edi Irby M.D. FCAP, FASCP CO2 [Moles/Vol] 24 mmol/L Normal 22-29 [facility] Comment on above: Performed By: #### C HEM7, CP1 #### [address] [id number] , Maribel PalenciaAP, FASCP Creatinine [Mass/Vol] 4.45 mg/dL High 0.67-1.17 [facility] Comment on above: Performed By: #### C HEMHallie, CP1 #### [address] [id number] , Edi Irby M.D. FCAP, FASCP GFR/1.73 sq M.predicted among non-blacks MDRD (S/P/Bld) [Vol rate/Area] 14 mL/min/{1.73_m2} Normal [facility] Comment on above: Result Comment: THE GFR IS ESTIMATED USING THE MDRD STUDY EQUATION. *NOTE* IF THE RACE OF THE PATIENT WAS UNKNOWN AT THE TIME OF REGISTRATION, AND THE PATIENT IS , MULTIPLY THE EGFR RESULT PROVIDED BY 1.21. EGFR <60.0 COULD BE ABNORMAL. Performed By: #### C HEM7, CP1 #### [address] [id number] , Edi Irby M.D. FCAP, FASCP Glucose [Mass/Vol] 55 mg/dL Low 70-100 [facility] Comment on above: Result Comment: INTR EPRETATION FOR FASTING BLOOD GLUCOSE: 70-100 mg/dl NORMAL GLUCOSE TOLERANCE 100-125 mg/dl IMPAIRED FASTING GLUCOSE (PRE-DIABETES) >125 mg/dl DIABETES - ON MORE THAN ONE TESTING Performed By: #### C HEM7, CP1 #### [facility] [address], [place] [id number] , Edi Irby M.D. FCAP, FASCP Potassium [Moles/Vol] 5.6 mmol/L High 3.6-5.0 [facility] Comment on above: Performed By: #### C HEM7, CP1 #### [address] [id number] , Edi Irby M.D. FCAP, FASCP Sodium [Moles/Vol] 135 mmol/L Low 136-145 [facility] Comment on above: Performed By: #### Garrett HEM7, CP1 #### [address] [id number] , Edi Irby M.D. FCAP, FASCP Urea nitrogen [Mass/Vol] 42.3 mg/dL High 6.0-20.0 [facility] Comment on above: Performed By: #### Garrett HEM7, CP1 #### [address] [id number] , Edi Irby M.D. FCAP, FASCP Basophils Auto (Bld) [#/Vol] Ordered By: KIM QUEVEDO on 11-02-2022 Basophils (Bld) [#/Vol] 0.00 10:3/uL 0.0-0.2 [facility] Basophils/100 WBC Auto (Bld) Ordered By: KIM QUEVEDO on 11-02-2022 Basophils/100 WBC (Bld) 0.4 % 0-1.0 [facility] Blood hemoglobin measurement (mass/volume)Ordered By: KIM QUEVEDO on 11-02-2022 Hemoglobin (Bld) [Mass/Vol] 9.0 g/dL Low 13.3-17.7 [facility] CBC With Differentialon 10-14 Basophils/100 WBC (Bld) 0.4 % Normal 0-1.0 [facility] Comment on above: Performed By: #### L IVP6 #### [facility] [address] [place] [id number] , Edi Irby M.D. FCAP, FASCP Eosinophils/100 WBC (Bld) 0.9 % Normal 0.0-3.0 [facility] Comment on above: Performed By: #### L IVP6 #### [address] [id number] , Edi Irby M.D. FCAP, FASCP Immature Gran Absolute Auto 0.06 10:3/uL Normal 0.01-0.2 [facility] Comment on above: Performed By: #### L IVP6 #### [address] [id number] , Edi Irby M.D. FCAP, FASCP Immature granulocytes/100 WBC (Bld) 0.5 % Normal 0-0.9 [facility] Comment on above: Performed By: #### L IVP6 #### [address] [id number] , Edi Irby M.D. FCAP, FASCP Cholesterol in LDL Calc [Mas s/Vol]Ordered By: KIM QUEVEDO on 11-02-2022 Cholesterol in LDL [Mass/Vol] 42 mg/dL <100 [facility] Differential cell count meth od - BloodOrdered By: KIM QUEVEDO on 11-02-2022 Differential cell count method Nom (Bld) Manual differential [facility] Eosinophils Auto (Bld) [#/Vo l]Ordered By: KIM QUEVEDO on 04-21-2023 Eosinophils (Bld) [#/Vol] 0.00 10:3/uL 0.0-0.5 [facility] Eosinophils/100 WBC Auto (Bl d)Ordered By: KIM QUEVEDO on 11-02-2022 Eosinophils/100 WBC (Bld) 0.9 % 0.0-3.0 [facility] Erythrocyte distribution wid th Auto (RBC) [Ratio]Ordered By: KIM QUEVEDO on 11-02-2022 Erythrocyte distribution width (RBC) [Ratio] 15.7 % High 11.5-14.5 [facility] Hematocrit Auto (Bld) [Volum e fraction]Ordered By: KIM QUEVEDO on 11-02-2022 Hematocrit (Bld) [Volume fraction] 31.3 % Low 40.0-52.0 [facility] Immature granulocytes Auto ( Bld) [#/Vol]Ordered By: KIM QUEVEDO on 11-02-2022 Immature granulocytes (Bld) [#/Vol] 0.06 10:3/uL 0.01-0.2 [facility] Immature granulocytes/100 WB C Auto (Bld)Ordered By: KIM QUEVEDO on 11-02-2022 Immature granulocytes/100 WBC (Bld) 0.5 % 0-0.9 [facility] - Chemistry and C hemistry - challengeOrdered By: KIM QUEVEDO on 11-02-2022 GFR/1.73 sq M.predicted among non-blacks MDRD (S/P/Bld) [Vol rate/Area] 14 mL/min/{1.73_m2} [facility] Comment on above: EGFR <60.0 COULD BE ABNORMAL.THE GFR IS ESTIMATED USING THE MDRD STUDY EQUATION.*NOTE* IF THE RACE OF THE PATIENT WAS UNKNOWN AT THE TIME OFREGISTRATION, AND THE PATIENT IS , MULTIPLYTHE EGFR RESULT PROVIDED BY 1.21. Lipid Profile Fastingon 10-14 Cholesterol [Mass/Vol] 90 mg/dL Normal 0-199 [facility] Comment on above: Performed By: #### C HEM7, CP1 #### [facility] [address] [place] [address] , Edi Irby M.D. FCAP, FASCP HDL Cholesterol Fasting 32 mg/dL Low >60 M [facility] Comment on above: Performed By: #### C HEM7, CP1 #### [address] [address] , Edi Irby M.D. FCAP, FASCP LDL Cholesterol (CALC) Fasting 42 mg/dL Normal <100 [facility] Comment on above: Performed By: #### C HEM7, CP1 #### [address] [id number] , Edi Irby M.D. FCAP, FASCP Risk Ratio Fasting 2.81 Normal [facility] Comment on above: Result Comment: RISK NORMALS MEN WOMEN 1/[address] 23[address]39 11.04 TRIGLYCERIDES >400 MG/DL MAY CAUSE INCONSISTENCIES IN THE LDL. Performed By: #### C HEM7, CP1 #### [address] [id number] , Edi Irby M.D. FCAP, FASCP Triglycerides Fasting 79 mg/dL Normal <150 [facility] Comment on above: Performed By: #### C HEM7, CP1 #### [address] [address] , Edi Irby M.D. FCAP, FASCP Lymphocytes Auto (Bld) [#/Vo l]Ordered By: KIM QUEVEDO on 11-02-2022 Lymphocytes (Bld) [#/Vol] 1.25 10:3/uL Low 1.5-4.0 [facility] Lymphocytes/100 WBC Auto (Bl d)Ordered By: KIM QUEVEDO on 11-02-2022 Lymphocytes/100 WBC (Bld) 11.0 % Low 20.0-40.0 [facility] MCH Auto (RBC) [Entitic mass ]Ordered By: KIM QUEVEDO on 11-02-2022 MCH (RBC) [Entitic mass] 24.1 pg Low 27-40 [facility] MCHC Auto (RBC) [Mass/Vol]Or dered By: KIM QUEVEDO on 11-02-2022 MCHC (RBC) [Mass/Vol] 28.8 g/dL Low 31-[address] [facility] MCV Auto (RBC) [Entitic vol] Ordered By: KIM QUEVEDO on 11-02-2022 MCV (RBC) [Entitic vol] 83.9 CU uM 80.0-100.0 [facility] Monocytes Auto (Bld) [#/Vol] Ordered By: KIM QUEVEDO on 11-02-2022 Monocytes (Bld) [#/Vol] 0.79 10:3/uL 0.2-0.8 [facility] Monocytes/100 WBC Auto (Bld) Ordered By: KIM QUEVEDO on 11-02-2022 Monocytes/100 WBC (Bld) 7.0 % 4.0-10.0 [facility] Neutrophils Auto (Bld) [#/Vo l]Ordered By: KIM QUEVEDO on 11-02-2022 Neutrophils (Bld) [#/Vol] 9.34 10:3/uL High 2.0-7.0 [facility] Neutrophils/100 WBC Auto (Bl d)Ordered By: KIM QUEVEDO on 11-02-2022 Neutrophils/100 WBC (Bld) 82.0 % High 54.0-62.0 [facility] Nucleated RBC Auto (Bld) [#/ Vol]Ordered By: KIM QUEVEDO on 11-02-2022 Nucleated RBC (Bld) [#/Vol] 0.00 10:3/uL <0 [facility] Nucleated RBC/100 WBC Auto ( Bld) [Ratio]Ordered By: KIM QUEVEDO on 11-02-2022 Nucleated RBC/100 WBC (Bld) [Ratio] 0.0 /100WBC <0 [facility] Platelets Auto (Bld) [#/Vol] Ordered By: KIM QUEVEDO on 11-02-2022 Platelets (Bld) [#/Vol] 351 10:3/uL 130-440 [facility] RBC Auto (Bld) [#/Vol]Ordere d By: KIM QUEVEDO on 11-02-2022 RBC (Bld) [#/Vol] 3.73 10:6/uL Low 4.40-5.90 [facility] Serum or plasma anion gapOrd ered By: KIM QUEVEDO on 11-02-2022 Anion gap [Moles/Vol] 19 mmol/L High 9-[address] [facility] Serum or plasma calcium zainab urement (mass/volume)Ordered By: KIM QUEVEDO on 11-02-2022 Calcium [Mass/Vol] 8.7 mg/dL 8.6-10.0 [facility] Serum or plasma carbon dioxi de, total measurement (moles/volume)Ordered By: KIM QUEVEDO on 11-02-2022 CO2 [Moles/Vol] 24 mmol/L - [facility] Serum or plasma cardiac hear t disease risk ratioOrdered By: KIM QUEVEDO on 11-02-2022 Cardiac heart disease risk [Ratio] 2.81 [facility] Comment on above: RISK NORMALS MEN WOM EN1/[address] 23[address]39 11.04 TRIGLYCERIDES >400 MG/DL MAY CAUSE INCONSISTENCIES IN THE LDL. Serum or plasma chloride eduardo surement (moles/volume)Ordered By: KIM QUEVEDO on 11-02-2022 Chloride [Moles/Vol] 92 mmol/L Low 98-107 [facility] Serum or plasma cholesterol measurement (mass/volume)Ordered By: KIM QUEVEDO on 11-02-2022 Cholesterol [Mass/Vol] 90 mg/dL 0-199 [facility] Serum or plasma creatinine m easurement (mass/volume)Ordered By: KIM QUEVEDO on 11-02-2022 Creatinine [Mass/Vol] 4.45 mg/dL High 0.67-1.[address] [facility] Serum or plasma glucose zainab urement (mass/volume)Ordered By: KIM QUEVEDO on 11-02-2022 Glucose [Mass/Vol] 55 mg/dL Low 70-100 [facility] Comment on above: INTREPRETATION FOR F ASTING BLOOD GLUCOSE: 70-100 mg/dl NORMAL GLUCOSE [id number] mg/dl IMPAIRED FASTING GLUCOSE (PRE-DIABETES)>125 mg/dl DIABETES - ON MORE THAN ONE TESTING Serum or plasma high density lipoprotein (HDL) cholesterol measurementOrdered By: KIM QUEVEDO on 11-02-2022 Cholesterol in HDL [Mass/Vol] 32 mg/dL Low >61 [facility] Serum or plasma potassium me asurement (moles/volume)Ordered By: KIM QUEVEDO on 11-02-2022 Potassium [Moles/Vol] 5.6 mmol/L High 3.6-5.[address] [facility] Serum or plasma sodium measu rement (moles/volume)Ordered By: KIM QUEVEDO on 11-02-2022 Sodium [Moles/Vol] 135 mmol/L Low 136-145 [facility] Serum or plasma triglyceride measurement (mass/volume)Ordered By: KIM QUEVEDO on 11-02-2022 Triglyceride [Mass/Vol] 79 mg/dL <150 [facility] Serum or plasma urea nitroge n measurement (mass/volume)Ordered By: KIM QUEVEDO on 11-02-2022 Urea nitrogen [Mass/Vol] 42.3 mg/dL High 6.0-20.0 [facility] WBC Auto (Bld) [#/Vol]Ordere d By: KIM QUEVEDO on 11-02-2022 WBC (Bld) [#/Vol] 11.4 10:3/uL High 3.9-10.6 [facility] Basic Metabolic Panelon 10-13 Anion gap [Moles/Vol] 13 mmol/L Normal 9-15 [facility] Comment on above: Performed By: #### C BCD #### [facility] [address] [place] [address] , Edi Irby M.D. FCAP, FASCP Calcium [Mass/Vol] 8.8 mg/dL Normal 8.6-10.0 [facility] Comment on above: Performed By: #### C BCD #### [facility] [address] [place], [place] [id number] , Edi Irby M.D. FCAP, FASCP Chloride [Moles/Vol] 92 mmol/L Low 98-107 [facility] Comment on above: Performed By: #### C BCD #### [facility] [address] [place] [address] , Edi Irby M.D. FCAP, FASCP CO2 [Moles/Vol] 27 mmol/L Normal 22-29 [facility] Comment on above: Performed By: #### C BCD #### [facility] [address] [place] [address] , Edi Irby M.D. FCAP, FASCP Creatinine [Mass/Vol] 3.60 mg/dL High 0.67-1.17 [facility] Comment on above: Performed By: #### C BCD #### [facility] [address] [place] [address] , Edi Irby M.D. FCAP, FASCP GFR/1.73 sq M.predicted among non-blacks MDRD (S/P/Bld) [Vol rate/Area] 18 mL/min/{1.73_m2} Normal [facility] Comment on above: Result Comment: THE GFR IS ESTIMATED USING THE MDRD STUDY EQUATION. *NOTE* IF THE RACE OF THE PATIENT WAS UNKNOWN AT THE TIME OF REGISTRATION, AND THE PATIENT IS , MULTIPLY THE EGFR RESULT PROVIDED BY 1.21. EGFR <60.0 COULD BE ABNORMAL. Performed By: #### C BCD #### [facility] [address] [place] [address] , Edi Irby M.D. FCAP, FASCP Glucose [Mass/Vol] 61 mg/dL Low 70-100 [facility] Comment on above: Result Comment: INTR EPRETATION FOR FASTING BLOOD GLUCOSE: 70-100 mg/dl NORMAL GLUCOSE TOLERANCE 100-125 mg/dl IMPAIRED FASTING GLUCOSE (PRE-DIABETES) >125 mg/dl DIABETES - ON MORE THAN ONE TESTING Performed By: #### C BCD #### [facility] [address] [facility], [place] [id number] , Edi Irby M.D. FCAP, FASCP Potassium [Moles/Vol] 4.8 mmol/L Normal 3.6-5.0 [facility] Comment on above: Result Comment: HEMO LYSIS PRESENT. INTERPRET RESULT WITH CAUTION. Performed By: #### C BCD #### [facility] [address] [facility], [place] [phone] , Edi Irby M.D. FCAP, FASCP Sodium [Moles/Vol] 132 mmol/L Low 136-145 [facility] Comment on above: Performed By: #### C BCD #### [facility] [address] [facility], [place] [phone] , Edi Irby M.D. FCAP, FASCP Urea nitrogen [Mass/Vol] 29.3 mg/dL High 6.0-20.0 [facility] Comment on above: Performed By: #### C BCD #### [facility] [address] [facility], [place] [phone] , Edi Irby M.D. FCAP, FASCP Basophils Auto (Bld) [#/Vol] Ordered By: KIM QUEVEDO on 10-26-2022 Basophils (Bld) [#/Vol] 0.05 10:3/uL 0.0-0.2 [facility] Basophils/100 WBC Auto (Bld) Ordered By: KIM QUEVEDO on 10-26-2022 Basophils/100 WBC (Bld) 0.6 % 0-1.0 [facility] Blood hemoglobin measurement (mass/volume)Ordered By: KIM QUEVEDO on 10-26-2022 Hemoglobin (Bld) [Mass/Vol] 8.9 g/dL Low 13.3-17.7 [facility] CBC With Differentialon 10-13 Basophils Absolute Auto 0.05 10:3/uL Normal 0.0-0.2 [facility] Comment on above: Performed By: #### L IVP6 #### [address] [id number] , Edi Irby M.D. FCAP, FASCP Basophils/100 WBC (Bld) 0.6 % Normal 0-1.0 [facility] Comment on above: Performed By: #### L IVP6 #### [address] [phone] , Edi Irby M.D. FCAP, FASCP Differential Type? Auto Differential Normal [facility] Comment on above: Performed By: #### L IVP6 #### [address] [phone] , Edi Irby M.D. FCAP, FASCP Eosinophils Absolute Auto 0.09 10:3/uL Normal 0.0-0.5 [facility] Comment on above: Performed By: #### L IVP6 #### [address] [id number] , Edi Irby M.D. FCAP, FASCP Eosinophils/100 WBC (Bld) 1.0 % Normal 0.0-3.0 [facility] Comment on above: Performed By: #### L IVP6 #### [address] [id number] , Edi Irby M.D. FCAP, FASCP Hematocrit (Bld) [Volume fraction] 30.0 % Low 40.0-52.0 [facility] Comment on above: Performed By: #### L IVP6 #### [address] [id number] , Edi Irby M.D. FCAP, FASCP Hemoglobin (Bld) [Mass/Vol] 8.9 g/dL Low 13.3-17.7 [facility] Comment on above: Performed By: #### L IVP6 #### [address] [id number] , Edi Irby M.D. FCAP, FASCP Immature Gran Absolute Auto 0.05 10:3/uL Normal 0.01-0.2 [facility] Comment on above: Performed By: #### L IVP6 #### [address] [phone] , Edi Irby M.D. FCAP, FASCP Immature granulocytes/100 WBC (Bld) 0.6 % Normal 0-0.9 [facility] Comment on above: Performed By: #### L IVP6 #### [address] [id number] , Edi Irby M.D. FCAP, FASCP Lymphocytes Absolute Auto 1.43 10:3/uL Low 1.5-4.0 [facility] Comment on above: Performed By: #### L IVP6 #### [address] [id number] , Edi Irby M.D. FCAP, FASCP Lymphocytes/100 WBC (Bld) 16.6 % Low 20.0-40.0 [facility] Comment on above: Performed By: #### L IVP6 #### [address] [id number] , Edi Irby M.D. FCAP, FASCP MCH (RBC) [Entitic mass] 24.8 pg Low 27.0-40.0 [facility] Comment on above: Performed By: #### L IVP6 #### [address] [id number] , Edi Irby M.D. FCAP, FASCP Mean Corpusc Hgb Concentration 29.7 g/dL Low 31.0-36.0 [facility] Comment on above: Performed By: #### L IVP6 #### [address] [phone] , Edi Irby M.D. FCAP, FASCP Mean Corpuscular Volume 83.6 CU uM Normal 80.0-100.0 [facility] Comment on above: Performed By: #### L IVP6 #### [address] [id number] , Edi Irby M.D. FCAP, FASCP Monocytes Absolute Auto 0.89 10:3/uL High 0.2-0.8 [facility] Comment on above: Performed By: #### L IVP6 #### [address] [id number] , Edi Irby M.D. FCAP, FASCP Monocytes/100 WBC (Bld) 10.3 % High 4.0-10.0 [facility] Comment on above: Performed By: #### L IVP6 #### [address] [id number] , Edi Irby M.D. FCAP, FASCP Neutrophils Absolute Auto 6.11 10:3/uL Normal 2.0-7.0 [facility] Comment on above: Performed By: #### L IVP6 #### [address] [id number] , Edi Irby M.D. FCAP, FASCP Neutrophils/100 WBC (Bld) 70.9 % High 54.0-62.0 [facility] Comment on above: Performed By: #### L IVP6 #### [address] [id number] , Edi Irby M.D. FCAP, FASCP Nucleated RBC's % Auto 0.0 /100WBC Normal -0 [facility] Comment on above: Performed By: #### L IVP6 #### [address] [phone] , Edi Irby M.D. FCAP, FASCP Nucleated RBC's Absolute Auto 0.00 10:3/uL Normal -0 [facility] Comment on above: Performed By: #### L IVP6 #### [address] [id number] , Edi Irby M.D. FCAP, FASCP Platelet Count 372 10:3/uL Normal 130-440 [facility] Comment on above: Performed By: #### L IVP6 #### [address] [id number] , Edi Irby M.D. FCAP, FASCP Red Blood Cell Count 3.59 10:6/uL Low 4.40-5.90 [facility] Comment on above: Performed By: #### L IVP6 #### [address] [id number] , Maribel PalenciaAP, FASCP Red Cell Distribution 15.9 High 11.5-14.5 [facility] Comment on above: Performed By: #### L IVP6 #### [address] [place] [address] , Edi Irby M.D. FCAP, FASCP White Blood Cell Count 8.6 10:3/uL Normal 3.9-10.6 [facility] Comment on above: Performed By: #### L IVP6 #### [address] [id number] , Edi J. Macatol, M.D. FCAP, FASCP Differential cell count meth od - BloodOrdered By: KIM QUEVEDO on 10-26-2022 Differential cell count method Nom (Bld) Auto differential [facility] Eosinophils Auto (Bld) [#/Vo l]Ordered By: KIM QUEVEDO on 10-26-2022 Eosinophils (Bld) [#/Vol] 0.09 10:3/uL 0.0-0.5 [facility] Eosinophils/100 WBC Auto (Bl d)Ordered By: KIM QUEVEDO on 10-26-2022 Eosinophils/100 WBC (Bld) 1.0 % 0.0-3.0 [facility] Erythrocyte distribution wid th Auto (RBC) [Ratio]Ordered By: KIM QUEVEDO on 10-26-2022 Erythrocyte distribution width (RBC) [Ratio] 15.9 % High 11.5-14.5 [facility] Hematocrit Auto (Bld) [Volum e fraction]Ordered By: KIM QUEVEDO on 10-26-2022 Hematocrit (Bld) [Volume fraction] 30.0 % Low 40.0-52.0 [facility] Immature granulocytes Auto ( Bld) [#/Vol]Ordered By: KIM QUEVEDO on 10-26-2022 Immature granulocytes (Bld) [#/Vol] 0.05 10:3/uL 0.01-0.2 [facility] Immature granulocytes/100 WB C Auto (Bld)Ordered By: KIM QUEVEDO on 10-26-2022 Immature granulocytes/100 WBC (Bld) 0.6 % 0-0.9 [facility] - Chemistry and C hemistry - challengeOrdered By: KIM QUEVEDO on 10-26-2022 GFR/1.73 sq M.predicted among non-blacks MDRD (S/P/Bld) [Vol rate/Area] 18 mL/min/{1.73_m2} [facility] Comment on above: EGFR <60.0 COULD BE ABNORMAL.THE GFR IS ESTIMATED USING THE MDRD STUDY EQUATION.*NOTE* IF THE RACE OF THE PATIENT WAS UNKNOWN AT THE TIME OFREGISTRATION, AND THE PATIENT IS , MULTIPLYTHE EGFR RESULT PROVIDED BY 1.21. Lymphocytes Auto (Bld) [#/Vo l]Ordered By: KIM QUEVEDO on 10-26-2022 Lymphocytes (Bld) [#/Vol] 1.43 10:3/uL Low 1.5-4.0 [facility] Lymphocytes/100 WBC Auto (Bl d)Ordered By: KIM QUEVEDO on 10-26-2022 Lymphocytes/100 WBC (Bld) 16.6 % Low 20.0-40.0 [facility] MCH Auto (RBC) [Entitic mass ]Ordered By: KIM QUEVEDO on 10-26-2022 MCH (RBC) [Entitic mass] 24.8 pg Low 27-40 [facility] MCHC Auto (RBC) [Mass/Vol]Or dered By: KIM QUEVEDO on 10-26-2022 MCHC (RBC) [Mass/Vol] 29.7 g/dL Low 31-[address] [facility] MCV Auto (RBC) [Entitic vol] Ordered By: KIM QUEVEDO on 10-26-2022 MCV (RBC) [Entitic vol] 83.6 CU uM 80.0-100.0 [facility] Monocytes Auto (Bld) [#/Vol] Ordered By: KIM QUEVEDO on 10-26-2022 Monocytes (Bld) [#/Vol] 0.89 10:3/uL High 0.2-0.8 [facility] Monocytes/100 WBC Auto (Bld) Ordered By: KIM QUEVEDO on 10-26-2022 Monocytes/100 WBC (Bld) 10.3 % High 4.0-10.0 [facility] Neutrophils Auto (Bld) [#/Vo l]Ordered By: KIM QUEVEDO on 10-26-2022 Neutrophils (Bld) [#/Vol] 6.11 10:3/uL 2.0-7.0 [facility] Neutrophils/100 WBC Auto (Bl d)Ordered By: KIM QUEVEDO on 10-26-2022 Neutrophils/100 WBC (Bld) 70.9 % High 54.0-62.0 [facility] Nucleated RBC Auto (Bld) [#/ Vol]Ordered By: KIM QUEVEDO on 10-26-2022 Nucleated RBC (Bld) [#/Vol] 0.00 10:3/uL <0 [facility] Nucleated RBC/100 WBC Auto ( Bld) [Ratio]Ordered By: KIM QUEVEDO on 10-26-2022 Nucleated RBC/100 WBC (Bld) [Ratio] 0.0 /100WBC <0 [facility] Platelets Auto (Bld) [#/Vol] Ordered By: KIM QUEVEDO on 10-26-2022 Platelets (Bld) [#/Vol] 372 10:3/uL 130-440 [facility] RBC Auto (Bld) [#/Vol]Ordere d By: KIM QUEVEDO on 10-26-2022 RBC (Bld) [#/Vol] 3.59 10:6/uL Low 4.40-5.90 [facility] Serum or plasma anion gapOrd ered By: KIM QUEVEDO on 10-26-2022 Anion gap [Moles/Vol] 13 mmol/L 9-[address] [facility] Serum or plasma calcium zainab urement (mass/volume)Ordered By: KIM QUEVEDO on 10-26-2022 Calcium [Mass/Vol] 8.8 mg/dL 8.6-10.0 [facility] Serum or plasma carbon dioxi de, total measurement (moles/volume)Ordered By: KIM QUEVEDO on 10-26-2022 CO2 [Moles/Vol] 27 mmol/L - [facility] Serum or plasma chloride eduardo surement (moles/volume)Ordered By: KIM QUEVEDO on 10-26-2022 Chloride [Moles/Vol] 92 mmol/L Low 98-107 [facility] Serum or plasma creatinine m easurement (mass/volume)Ordered By: KIM QUEVEDO on 10-26-2022 Creatinine [Mass/Vol] 3.60 mg/dL High 0.67-1.[address] [facility] Serum or plasma glucose zainab urement (mass/volume)Ordered By: KIM QUEVEDO on 10-26-2022 Glucose [Mass/Vol] 61 mg/dL Low 70-100 [facility] Comment on above: INTREPRETATION FOR F ASTING BLOOD GLUCOSE: 70-100 mg/dl NORMAL GLUCOSE [id number] mg/dl IMPAIRED FASTING GLUCOSE (PRE-DIABETES)>125 mg/dl DIABETES - ON MORE THAN ONE TESTING Serum or plasma potassium me asurement (moles/volume)Ordered By: KIM QUEVEDO on 10-26-2022 Potassium [Moles/Vol] 4.8 mmol/L 3.6-5.[address] [facility] Comment on above: HEMOLYSIS PRESENT. I NTERPRET RESULT WITH CAUTION. Serum or plasma sodium measu rement (moles/volume)Ordered By: KIM QUEVEDO on 10-26-2022 Sodium [Moles/Vol] 132 mmol/L Low 136-145 [facility] Serum or plasma urea nitroge n measurement (mass/volume)Ordered By: KIM QUEVEDO on 10-26-2022 Urea nitrogen [Mass/Vol] 29.3 mg/dL High 6.0-20.0 [facility] WBC Auto (Bld) [#/Vol]Ordere d By: KIM QUEVEDO on 10-26-2022 WBC (Bld) [#/Vol] 8.6 10:3/uL 3.9-10.6 [facility] Basic Metabolic Panelon 04- Anion gap [Moles/Vol] 16 mmol/L High 9-15 [facility] Comment on above: Performed By: #### C BCD #### [facility] [address], [place] [id number] , Edi Irby M.D. FCAP, FASCP Calcium [Mass/Vol] 8.9 mg/dL Normal 8.6-10.0 [facility] Comment on above: Performed By: #### C BCD #### [facility] [address], [place] [id number] , Edi Irby M.D. FCAP, FASCP Chloride [Moles/Vol] 91 mmol/L Low 98-107 [facility] Comment on above: Performed By: #### C BCD #### [facility] [address] [place] [address] , Edi Irby M.D. FCAP, FASCP CO2 [Moles/Vol] 24 mmol/L Normal 22-29 [facility] Comment on above: Performed By: #### C BCD #### [facility] [address] [place] [address] , Edi Irby M.D. FCAP, FASCP Creatinine [Mass/Vol] 5.30 mg/dL High 0.67-1.17 [facility] Comment on above: Performed By: #### C BCD #### [facility] [address] [place] [address] , Edi Irby M.D. FCAP, FASCP GFR/1.73 sq M.predicted among non-blacks MDRD (S/P/Bld) [Vol rate/Area] 12 mL/min/{1.73_m2} Normal [facility] Comment on above: Result Comment: THE GFR IS ESTIMATED USING THE MDRD STUDY EQUATION. *NOTE* IF THE RACE OF THE PATIENT WAS UNKNOWN AT THE TIME OF REGISTRATION, AND THE PATIENT IS , MULTIPLY THE EGFR RESULT PROVIDED BY 1.21. EGFR <60.0 COULD BE ABNORMAL. Performed By: #### C BCD #### [facility] [address] [place] [address] , Edi Irby M.D. FCAP, FASCP Glucose [Mass/Vol] 71 mg/dL Normal 70-100 [facility] Comment on above: Result Comment: INTR EPRETATION FOR FASTING BLOOD GLUCOSE: 70-100 mg/dl NORMAL GLUCOSE TOLERANCE 100-125 mg/dl IMPAIRED FASTING GLUCOSE (PRE-DIABETES) >125 mg/dl DIABETES - ON MORE THAN ONE TESTING Performed By: #### C BCD #### [facility] [address] [place] [address] , Edi Irby M.D. FCAP, FASCP Potassium [Moles/Vol] 6.1 mmol/L High 3.6-5.0 [facility] Comment on above: Result Comment: HEMO LYSIS PRESENT. INTERPRET RESULT WITH CAUTION. Performed By: #### C BCD #### [facility] [address], [place] [id number] , Edi Irby M.D. FCAP, FASCP Sodium [Moles/Vol] 131 mmol/L Low 136-145 [facility] Comment on above: Performed By: #### C BCD #### [facility] [address], [place] [id number] , Edi Irby M.D. FCAP, FASCP Urea nitrogen [Mass/Vol] 47.7 mg/dL High 6.0-20.0 [facility] Comment on above: Performed By: #### C BCD #### [facility] [address] [place] [address] , Edi Irby M.D. FCAP, FASCP Blood erythrocytes count (nu mber/volume)Ordered By: KIM QUEVEDO on 10-22-2022 RBC (Bld) [#/Vol] 3.65 10:6/uL Low 4.40-5.90 [facility] Blood hemoglobin measurement (mass/volume)Ordered By: KIM QUEVEDO on 10-22-2022 Hemoglobin (Bld) [Mass/Vol] 9.0 g/dL Low 13.3-17.7 [facility] Blood leukocytes count (numb er/volume)Ordered By: KIM QUEVEDO on 10-22-2022 WBC (Bld) [#/Vol] 9.3 10:3/uL 3.9-10.6 [facility] Blood platelet countOrdered By: KIM QUEVEDO on 10-22-2022 Platelets (Bld) [#/Vol] 430 10:3/uL 130-440 [facility] Complete Blood Counton 10-22 Hematocrit (Bld) [Volume fraction] 30.5 % Low 40.0-52.0 [facility] Comment on above: Performed By: #### C BCD #### [facility] [address], [place] [id number] , Edi Irby M.D. FCAP, FASCP Hemoglobin (Bld) [Mass/Vol] 9.0 g/dL Low 13.3-17.7 [facility] Comment on above: Performed By: #### C BCD #### [address] [id number] , Edi Irby M.D. FCAP, FASCP MCH (RBC) [Entitic mass] 24.7 pg Low 27.0-40.0 [facility] Comment on above: Performed By: #### C BCD #### [address] [id number] , Edi Irby M.D. FCAP, FASCP Mean Corpusc Hgb Concentration 29.5 g/dL Low 31.0-36.0 [facility] Comment on above: Performed By: #### C BCD #### [address] [id number] , Edi Irby M.D. FCAP, FASCP Mean Corpuscular Volume 83.6 CU uM Normal 80.0-100.0 [facility] Comment on above: Performed By: #### C BCD #### [address] [id number] , Maribel Palencia, FASCP Platelet Count 430 10:3/uL Normal 130-440 [facility] Comment on above: Performed By: #### C BCD #### [address] [id number] , Edi Irby M.D. FCAP, FASCP Red Blood Cell Count 3.65 10:6/uL Low 4.40-5.90 [facility] Comment on above: Performed By: #### C BCD #### [address] [id number] , Edi Irby M.D. FCAP, FASCP Red Cell Distribution 15.8 High 11.5-14.5 [facility] Comment on above: Performed By: #### C BCD #### [facility] [address] [place] [address] , Edi Irby M.D. FCAP, FASCP White Blood Cell Count 9.3 10:3/uL Normal 3.9-10.6 [facility] Comment on above: Performed By: #### C BCD #### [facility] [address] [place] [address] , Edi Irby M.D. FCAP, FASCP Determination of erythrocyte mean corpuscular volume (MCV)Ordered By: KIM QUEVEDO on 10-22-2022 MCV (RBC) [Entitic vol] 83.6 CU uM 80.0-100.0 [facility] Erythrocyte distribution wid th standard deviationOrdered By: KIM QUEVEDO on 10-22-2022 Erythrocyte distribution width (RBC) [Entitic vol] 15.8 fL High 11.5-14.5 [facility] Erythrocyte mean corpuscular hemoglobin concentration measurement (mass/volume)Ordered By: KIM QUEVEDO on 10-22-2022 MCHC (RBC) [Mass/Vol] 29.5 g/dL Low 31-[address] [facility] Hematocrit Auto (Bld) [Volum e fraction]Ordered By: KIM QUEVEDO on 10-22-2022 Hematocrit (Bld) [Volume fraction] 30.5 % Low 40.0-52.0 [facility] - Chemistry and C hemistry - challengeOrdered By: KIM QUEVEDO on 10-22-2022 GFR/1.73 sq M.predicted among non-blacks MDRD (S/P/Bld) [Vol rate/Area] 12 mL/min/{1.73_m2} [facility] Comment on above: EGFR <60.0 COULD BE ABNORMAL.THE GFR IS ESTIMATED USING THE MDRD STUDY EQUATION.*NOTE* IF THE RACE OF THE PATIENT WAS UNKNOWN AT THE TIME OFREGISTRATION, AND THE PATIENT IS , MULTIPLYTHE EGFR RESULT PROVIDED BY 1.21. Laboratory - Hematology and Cell countsOrdered By: KIM QUEVEDO on 10-22-2022 MCH (RBC) [Entitic mass] 24.7 pg Low 27-40 [facility] Serum or plasma anion gapOrd ered By: KIM QUEVEDO on 10-22-2022 Anion gap [Moles/Vol] 16 mmol/L High 9-[address] [facility] Serum or plasma calcium zainab urement (mass/volume)Ordered By: KIM QUEVEDO on 10-22-2022 Calcium [Mass/Vol] 8.9 mg/dL 8.6-10.0 [facility] Serum or plasma carbon dioxi de, total measurement (moles/volume)Ordered By: KIM QUEVEDO on 10-22-2022 CO2 [Moles/Vol] 24 mmol/L 22-29 [facility] Serum or plasma chloride eduardo surement (moles/volume)Ordered By: KIM QUEVEDO on 10-22-2022 Chloride [Moles/Vol] 91 mmol/L Low 98-107 [facility] Serum or plasma creatinine m easurement (mass/volume)Ordered By: KIM QUEVEDO on 10-22-2022 Creatinine [Mass/Vol] 5.30 mg/dL High 0.67-1.[address] [facility] Serum or plasma glucose zainab urement (mass/volume)Ordered By: KIM QUEVEDO on 10-22-2022 Glucose [Mass/Vol] 71 mg/dL 70-100 [facility] Comment on above: INTREPRETATION FOR F ASTING BLOOD GLUCOSE: 70-100 mg/dl NORMAL GLUCOSE [id number] mg/dl IMPAIRED FASTING GLUCOSE (PRE-DIABETES)>125 mg/dl DIABETES - ON MORE THAN ONE TESTING Serum or plasma potassium me asurement (moles/volume)Ordered By: KIM QUEVEDO on 10-22-2022 Potassium [Moles/Vol] 6.1 mmol/L High 3.6-5.[address] [facility] Comment on above: HEMOLYSIS PRESENT. I NTERPRET RESULT WITH CAUTION. Serum or plasma sodium measu rement (moles/volume)Ordered By: KIM QUEVEDO on 10-22-2022 Sodium [Moles/Vol] 131 mmol/L Low 136-145 [facility] Serum or plasma urea nitroge n measurement (mass/volume)Ordered By: KIM QUEVEDO on 10-22-2022 Urea nitrogen [Mass/Vol] 47.7 mg/dL High 6.0-20.0 [facility] Basic Metabolic Panelon 03-3 Anion gap [Moles/Vol] 15 mmol/L Normal 9-15 [facility] Comment on above: Performed By: #### C HEM7 #### [address] [id number] , Maribel PalenciaAP, FASCP Calcium [Mass/Vol] 8.7 mg/dL Normal 8.6-10.0 [facility] Comment on above: Performed By: #### C HEM7 #### [address] [id number] , Maribel PalenciaAP, FASCP Chloride [Moles/Vol] 93 mmol/L Low 98-107 [facility] Comment on above: Performed By: #### C HEM7 #### [address] [id number] , Edi Irby M.D. FCAP, FASCP CO2 [Moles/Vol] 25 mmol/L Normal 22-29 [facility] Comment on above: Performed By: #### C HEM7 #### [address] [id number] , Edi Irby M.D. FCAP, FASCP Creatinine [Mass/Vol] 4.27 mg/dL High 0.67-1.17 [facility] Comment on above: Performed By: #### C HEM7 #### [address] [id number] , Edi Irby M.D. FCAP, FASCP GFR/1.73 sq M.predicted among non-blacks MDRD (S/P/Bld) [Vol rate/Area] 15 mL/min/{1.73_m2} Normal [facility] Comment on above: Result Comment: THE GFR IS ESTIMATED USING THE MDRD STUDY EQUATION. *NOTE* IF THE RACE OF THE PATIENT WAS UNKNOWN AT THE TIME OF REGISTRATION, AND THE PATIENT IS , MULTIPLY THE EGFR RESULT PROVIDED BY 1.21. EGFR <60.0 COULD BE ABNORMAL. Performed By: #### C HEM7 #### [address] [address] , Edi Irby M.D. FCAP, FASCP Glucose [Mass/Vol] 82 mg/dL Normal 70-100 [facility] Comment on above: Result Comment: INTR EPRETATION FOR FASTING BLOOD GLUCOSE: 70-100 mg/dl NORMAL GLUCOSE TOLERANCE 100-125 mg/dl IMPAIRED FASTING GLUCOSE (PRE-DIABETES) >125 mg/dl DIABETES - ON MORE THAN ONE TESTING Performed By: #### C HEM7 #### [address] [address] , Maribel PalenciaAP, FASCP Potassium [Moles/Vol] 5.3 mmol/L High 3.6-5.0 [facility] Comment on above: Performed By: #### C HEM7 #### [facility] [address] [place] [address] , Edi Irby M.D. FCAP, FASCP Sodium [Moles/Vol] 133 mmol/L Low 136-145 [facility] Comment on above: Performed By: #### C HEM7 #### [address] [address] , Edi Irby M.D. FCAP, FASCP Urea nitrogen [Mass/Vol] 36.5 mg/dL High 6.0-20.0 [facility] Comment on above: Performed By: #### C HEM7 #### [facility] [address] [place] [address] , Edi Irby M.D. FCAP, FASCP Blood erythrocytes count (nu mber/volume)Ordered By: KIM QUEVEDO on 10-12-2022 RBC (Bld) [#/Vol] 3.41 10:6/uL Low 4.40-5.90 [facility] Blood hemoglobin measurement (mass/volume)Ordered By: KIM QUEVEDO on 10-12-2022 Hemoglobin (Bld) [Mass/Vol] 8.7 g/dL Low 13.3-17.7 [facility] Blood leukocytes count (numb er/volume)Ordered By: KIM QUEVEDO on 10-12-2022 WBC (Bld) [#/Vol] 12.4 10:3/uL High 3.9-10.6 [facility] Blood platelet countOrdered By: KIM QUEVEDO on 10-12-2022 Platelets (Bld) [#/Vol] 276 10:3/uL 130-440 [facility] Complete Blood Counton 10-12 Hematocrit (Bld) [Volume fraction] 28.7 % Low 40.0-52.0 [facility] Comment on above: Performed By: #### C BCD #### [facility] [address] [place] [address] , Edi Irby M.D. FCAP, FASCP Hemoglobin (Bld) [Mass/Vol] 8.7 g/dL Low 13.3-17.7 [facility] Comment on above: Performed By: #### C BCD #### [address] [address] , Edi Irby M.D. FCAP, FASCP MCH (RBC) [Entitic mass] 25.5 pg Low 27.0-40.0 [facility] Comment on above: Performed By: #### C BCD #### [address], [place] [id number] , Edi Irby M.D. FCAP, FASCP Mean Corpusc Hgb Concentration 30.3 G/DL Low 31.0-36.0 [facility] Comment on above: Performed By: #### C BCD #### [address] [id number] , Edi Irby M.D. FCAP, FASCP Mean Corpuscular Volume 84.2 CU uM Normal 80.0-100.0 [facility] Comment on above: Performed By: #### C ANI #### [address], [place] [id number] , Edi Irby M.D. FCAP, FASCP Platelet Count 276 10:3/uL Normal 130-440 [facility] Comment on above: Performed By: #### C BCD #### [address], [place] [id number] , Edi Irby M.D. FCAP, FASCP Red Blood Cell Count 3.41 10:6/uL Low 4.40-5.90 [facility] Comment on above: Performed By: #### C MAYURID #### [address], [place] [id number] , Edi Irby M.D. FCAP, FASCP Red Cell Distribution 16.5 High 11.5-14.5 [facility] Comment on above: Performed By: #### C BCD #### [address], [place] [id number] , Edi Irby M.D. FCAP, FASCP White Blood Cell Count 12.4 10:3/uL High 3.9-10.6 [facility] Comment on above: Performed By: #### C BCD #### [address] [place] [address] , Edi Irby M.D. FCAP, FASCP Determination of erythrocyte mean corpuscular volume (MCV)Ordered By: KIM QUEVEDO on 10-12-2022 MCV (RBC) [Entitic vol] 84.2 CU uM 80.0-100.0 [facility] Erythrocyte distribution wid th standard deviationOrdered By: KIM QUEVEDO on 10-12-2022 Erythrocyte distribution width (RBC) [Entitic vol] 16.5 fL High 11.5-14.5 [facility] Erythrocyte mean corpuscular hemoglobin concentration measurement (mass/volume)Ordered By: KIM QUEVEDO on 10-12-2022 MCHC (RBC) [Mass/Vol] 30.3 g/dL Low 31-36 [facility] Hematocrit Auto (Bld) [Volum e fraction]Ordered By: KIM QUEVEDO on 10-12-2022 Hematocrit (Bld) [Volume fraction] 28.7 % Low 40.0-52.0 [facility] - Chemistry and C hemistry - challengeOrdered By: KIM QUEVEDO on 10-12-2022 GFR/1.73 sq M.predicted among non-blacks MDRD (S/P/Bld) [Vol rate/Area] 15 mL/min/{1.73_m2} [facility] Comment on above: EGFR <60.0 COULD BE ABNORMAL.THE GFR IS ESTIMATED USING THE MDRD STUDY EQUATION.*NOTE* IF THE RACE OF THE PATIENT WAS UNKNOWN AT THE TIME OFREGISTRATION, AND THE PATIENT IS , MULTIPLYTHE EGFR RESULT PROVIDED BY 1.21. Laboratory - Hematology and Cell countsOrdered By: KIM QUEVEDO on 10-12-2022 MCH (RBC) [Entitic mass] 25.5 pg Low 27-40 [facility] Serum or plasma anion gapOrd ered By: KIM QUEVEDO on 10-12-2022 Anion gap [Moles/Vol] 15 mmol/L 9-15 [facility] Serum or plasma calcium zainab urement (mass/volume)Ordered By: KIM QUEVEDO on 10-12-2022 Calcium [Mass/Vol] 8.7 mg/dL 8.6-10.0 [facility] Serum or plasma carbon dioxi de, total measurement (moles/volume)Ordered By: KIM QUEVEDO on 10-12-2022 CO2 [Moles/Vol] 25 mmol/L - [facility] Serum or plasma chloride eduardo surement (moles/volume)Ordered By: KIM QUEVEDO on 10-12-2022 Chloride [Moles/Vol] 93 mmol/L Low 98-107 [facility] Serum or plasma creatinine m easurement (mass/volume)Ordered By: KIM QUEVEDO on 10-12-2022 Creatinine [Mass/Vol] 4.27 mg/dL High 0.67-1.[address] [facility] Serum or plasma glucose zainab urement (mass/volume)Ordered By: KIM QUEVEDO on 10-12-2022 Glucose [Mass/Vol] 82 mg/dL 70-100 [facility] Comment on above: INTREPRETATION FOR F ASTING BLOOD GLUCOSE: 70-100 mg/dl NORMAL GLUCOSE [id number] mg/dl IMPAIRED FASTING GLUCOSE (PRE-DIABETES)>125 mg/dl DIABETES - ON MORE THAN ONE TESTING Serum or plasma potassium me asurement (moles/volume)Ordered By: KIM QUEVEDO on 10-12-2022 Potassium [Moles/Vol] 5.3 mmol/L High 3.6-5.[address] [facility] Serum or plasma sodium measu rement (moles/volume)Ordered By: KIM QUEVEDO on 10-12-2022 Sodium [Moles/Vol] 133 mmol/L Low 136-145 [facility] Serum or plasma urea nitroge n measurement (mass/volume)Ordered By: KIM QUEVEDO on 10-12-2022 Urea nitrogen [Mass/Vol] 36.5 mg/dL High 6.0-20.0 [facility] - Chemistry and C hemistry - challengeOrdered By: ROBERTO QUEVEDO on 10-05-2022 GFR/1.73 sq M.predicted among non-blacks MDRD (S/P/Bld) [Vol rate/Area] 16 mL/min/{1.73_m2} [facility] Comment on above: EGFR <60.0 COULD BE ABNORMAL.THE GFR IS ESTIMATED USING THE MDRD STUDY EQUATION.*NOTE* IF THE RACE OF THE PATIENT WAS UNKNOWN AT THE TIME OFREGISTRATION, AND THE PATIENT IS , MULTIPLYTHE EGFR RESULT PROVIDED BY 1.21. Serum or plasma anion gapOrd ered By: ROBERTO QUEVEDO on 10-05-2022 Anion gap [Moles/Vol] 17 mmol/L High 9-[address] [facility] Serum or plasma calcium zainab urement (mass/volume)Ordered By: ROBERTO QUEVEDO on 10-05-2022 Calcium [Mass/Vol] 8.6 mg/dL 8.6-10.0 [facility] Serum or plasma carbon dioxi de, total measurement (moles/volume)Ordered By: ROBERTO QUEVEDO on 10-05-2022 CO2 [Moles/Vol] 22 mmol/L [facility] Serum or plasma chloride eduardo surement (moles/volume)Ordered By: ROBERTO QUEVEDO on 10-05-2022 Chloride [Moles/Vol] 95 mmol/L Low 98-107 [facility] Serum or plasma creatinine m easurement (mass/volume)Ordered By: ROBERTO QUEVEDO on 10-05-2022 Creatinine [Mass/Vol] 4.04 mg/dL High 0.67-1.[address] [facility] Serum or plasma glucose zainab urement (mass/volume)Ordered By: ROBERTO QUEVEDO on 10-05-2022 Glucose [Mass/Vol] 59 mg/dL Low 70-100 [facility] Comment on above: INTREPRETATION FOR F ASTING BLOOD GLUCOSE: 70-100 mg/dl NORMAL GLUCOSE [id number] mg/dl IMPAIRED FASTING GLUCOSE (PRE-DIABETES)>125 mg/dl DIABETES - ON MORE THAN ONE TESTING Serum or plasma potassium me asurement (moles/volume)Ordered By: ROBERTO QUEVEDO on 10-05-2022 Potassium [Moles/Vol] 5.5 mmol/L High 3.6-5.[address] [facility] Comment on above: HEMOLYSIS PRESENT. I NTERPRET RESULT WITH CAUTION. Serum or plasma sodium measu rement (moles/volume)Ordered By: ROBERTO QUEVEDO on 10-05-2022 Sodium [Moles/Vol] 134 mmol/L Low 136-145 [facility] Serum or plasma urea nitroge n measurement (mass/volume)Ordered By: ROBERTO QUEVEDO on 10-05-2022 Urea nitrogen [Mass/Vol] 42.0 mg/dL High 6.0-20.0 [facility] Blood erythrocytes count (nu mber/volume)Ordered By: KIM QUEVEDO on 05-22-2022 RBC (Bld) [#/Vol] 2.79 10:6/uL Low 4.40-5.90 [facility] Blood hemoglobin measurement (mass/volume)Ordered By: KIM QUEVEDO on 05-22-2022 Hemoglobin (Bld) [Mass/Vol] 8.3 g/dL Low 13.3-17.7 [facility] Blood leukocytes count (numb er/volume)Ordered By: KIM QUEVEDO on 05-22-2022 WBC (Bld) [#/Vol] 7.8 10:3/uL 3.9-10.6 [facility] Blood platelet countOrdered By: KIM QUEVEDO on 05-22-2022 Platelets (Bld) [#/Vol] 327 10:3/uL 130-440 [facility] Cholesterol in LDL Calc [Mas s/Vol]Ordered By: KIM QUEVEDO on 05-22-2022 Cholesterol in LDL [Mass/Vol] 17 mg/dL <100 [facility] Determination of erythrocyte mean corpuscular volume (MCV)Ordered By: KIM QUEVEDO on 05-22-2022 MCV (RBC) [Entitic vol] 98.9 CU uM 80.0-100.0 [facility] Erythrocyte distribution wid th standard deviationOrdered By: KIM QUEVEDO on 05-22-2022 Erythrocyte distribution width (RBC) [Entitic vol] 19.5 fL High 11.5-14.5 [facility] Erythrocyte mean corpuscular hemoglobin concentration measurement (mass/volume)Ordered By: KIM QUEVEDO on 05-22-2022 MCHC (RBC) [Mass/Vol] 30.1 g/dL Low 31-[address] [facility] HbA1c HPLC (Bld) [Mass fract ion]Ordered By: KIM QUEVEDO on 05-22-2022 HbA1c (Bld) [Mass fraction] 4.8 % 4.4-5.6 [facility] Comment on above: PRE-DIABETES 5.7-6.4 DIABETES > OR = 6.5 Hematocrit Auto (Bld) [Volum e fraction]Ordered By: KIM QUEVEDO on 05-22-2022 Hematocrit (Bld) [Volume fraction] 27.6 % Low 40.0-52.0 [facility] - Chemistry and C hemistry - challengeOrdered By: KIM QUEVEDO on 05-22-2022 GFR/1.73 sq M.predicted among non-blacks MDRD (S/P/Bld) [Vol rate/Area] 19 mL/min/{1.73_m2} [facility] Comment on above: EGFR <60.0 COULD BE ABNORMAL.THE GFR IS ESTIMATED USING THE MDRD STUDY EQUATION.*NOTE* IF THE RACE OF THE PATIENT WAS UNKNOWN AT THE TIME OFREGISTRATION, AND THE PATIENT IS , MULTIPLYTHE EGFR RESULT PROVIDED BY 1.21. Laboratory - Hematology and Cell countsOrdered By: KIM QUEVEDO on 05-22-2022 MCH (RBC) [Entitic mass] 29.7 pg 27-40 [facility] Serum or plasma anion gapOrd ered By: KIM QUEVEDO on 05-22-2022 Anion gap [Moles/Vol] 12 mmol/L 9- [facility] Serum or plasma calcium zainab urement (mass/volume)Ordered By: KIM QUEVEDO on 05-22-2022 Calcium [Mass/Vol] 8.8 mg/dL 8.6-10.0 [facility] Serum or plasma carbon dioxi de, total measurement (moles/volume)Ordered By: KIM QUEVEDO on 05-22-2022 CO2 [Moles/Vol] 27 mmol/L 22- [facility] Serum or plasma cardiac hear t disease risk ratioOrdered By: KIM QUEVEDO on 05-22-2022 Cardiac heart disease risk [Ratio] 2.83 [facility] Comment on above: RISK NORMALS MEN WOM EN1/[address] 23[address]39 11.04 TRIGLYCERIDES >400 MG/DL MAY CAUSE INCONSISTENCIES IN THE LDL. Serum or plasma chloride eduardo surement (moles/volume)Ordered By: KIM QUEVEDO on 05-22-2022 Chloride [Moles/Vol] 98 mmol/L 98-107 [facility] Serum or plasma cholesterol measurement (mass/volume)Ordered By: KIM QUEVEDO on 05-22-2022 Cholesterol [Mass/Vol] 68 mg/dL 0-199 [facility] Serum or plasma creatinine m easurement (mass/volume)Ordered By: KIM QUEVEDO on 05-22-2022 Creatinine [Mass/Vol] 3.54 mg/dL High 0.67-1.[address] [facility] Serum or plasma glucose zainab urement (mass/volume)Ordered By: KIM QUEVEDO on 05-22-2022 Glucose [Mass/Vol] 75 mg/dL 70-100 [facility] Comment on above: INTREPRETATION FOR F ASTING BLOOD GLUCOSE: 70-100 mg/dl NORMAL GLUCOSE [id number] mg/dl IMPAIRED FASTING GLUCOSE (PRE-DIABETES)>125 mg/dl DIABETES - ON MORE THAN ONE TESTING Serum or plasma high density lipoprotein (HDL) cholesterol measurementOrdered By: KIM QUEVEDO on 05-22-2022 Cholesterol in HDL [Mass/Vol] 24 mg/dL Low >61 [facility] Serum or plasma potassium me asurement (moles/volume)Ordered By: KIM QUEVEDO on 05-22-2022 Potassium [Moles/Vol] 4.2 mmol/L 3.6-5.[address] [facility] Serum or plasma sodium measu rement (moles/volume)Ordered By: KIM QUEVEDO on 05-22-2022 Sodium [Moles/Vol] 137 mmol/L 136-145 [facility] Serum or plasma triglyceride measurement (mass/volume)Ordered By: KIM QUEVEDO on 05-22-2022 Triglyceride [Mass/Vol] 135 mg/dL <150 [facility] Serum or plasma urea nitroge n measurement (mass/volume)Ordered By: KIM QUEVEDO on 05-22-2022 Urea nitrogen [Mass/Vol] 12.7 mg/dL 6.0-20.0 [facility] POC Urinalysison 09-07-2021 Bilirubin Ql (U) Negative Negative - Negative [facility] Other Phone: Glucose Ql (U) Negative Negative - Negative [facility] Other Phone: Hemoglobin Ql (U) 2+ Negative - Negative [facility] Other Phone: Nitrite Ql (U) Negative Negative - Negative [facility] Other Phone: pH (U) 7.0 [pH] 5.0 - 7.5 [facility] Other Phone: Protein Ql (U) 2+ Negative - Negative [facility] Other Phone: Specific gravity (U) [Rel density] 1.020 1.005 - 1.030 [facility] Other Phone: Urobilinogen (U) [Mass/Vol] Negative 0.1 - 1.0 Eu/dl [facility] Other Phone: POC Urinalysis Negative Negative - Negative [facility] Other Phone: POC Urinalysis 3+ Negative - Negative [facility] Other Phone: Otheron 10-01-2019 GFR/1.73 sq M.predicted MDRD (S/P/Bld) [Vol rate/Area] 12 mL/min/{1.73_m2} [facility] Work Phone: Comment on above: EGFR <60.0 COULD BE ABNORMAL.THE GFR IS ESTIMATED USING THE MDRD STUDY EQUATION.*NOTE* IF THE RACE OF THE PATIENT WAS UNKNOWN AT THE TIME OFREGISTRATION, AND THE PATIENT IS , MULTIPLYTHE EGFR RESULT PROVIDED BY 1.21. Serum or plasma anion gapon 10-01-2019 Anion gap [Moles/Vol] 18 mmol/L High 9-15 Mar [facility] Work Phone: Serum or plasma calcium zainab urement (mass/volume)on 10-01-2019 Calcium [Mass/Vol] 7.4 mg/dL Low 8.6-10.0 [facility] Work Phone: Serum or plasma carbon dioxi de, total measurement (moles/volume)on 10-01-2019 CO2 [Moles/Vol] 20 mmol/L Low 22-29 [facility] Work Phone: Serum or plasma chloride eduardo surement (moles/volume)on 10-01-2019 Chloride [Moles/Vol] 91 mmol/L Low 98-107 [facility] Work Phone: Serum or plasma creatinine m easurement (mass/volume)on 10-01-2019 Creatinine [Mass/Vol] 5.35 mg/dL High 0.67-1.[address] [facility] Work Phone: Serum or plasma glucose zainab urement (mass/volume)on 10-01-2019 Glucose [Mass/Vol] 410 mg/dL High 70-100 [facility] Work Phone: Comment on above: Alert Value called junaid PENA, DATE: 2019-10-01 14:13:19 BY:Robbie Read Back? YES ALERT VALUE ATTENTION NURSING ALERT VALUE NOTIFY PHYSICIAN WITHIN 30 MINUTES OF RECEIVING THIS REPORTINTREPRETATION FOR FASTING BLOOD GLUCOSE: 70-100 mg/dl NORMAL GLUCOSE [id number] mg/dl IMPAIRED FASTING GLUCOSE (PRE-DIABETES)>125 mg/dl DIABETES - ON MORE THAN ONE TESTING Serum or plasma potassium me asurement (moles/volume)on 10-01-2019 Potassium [Moles/Vol] 3.6 mmol/L 3.6-5.[address] [facility] Work Phone: Serum or plasma sodium measu rement (moles/volume)on 10-01-2019 Sodium [Moles/Vol] 129 mmol/L Low 136-145 [facility] Work Phone: Serum or plasma urea nitroge n measurement (mass/volume)on 10-01-2019 Urea nitrogen [Mass/Vol] 43.6 mg/dL High 6.0-20.0 [facility] Work Phone: Whole blood glucose measurem ent using handheld analyzer (mass/volume)on 10-01-2019 Glucose [Mass/Vol] 235 mg/dL High 70-100 [facility] Work Phone: Comment on above: Delta: 369 on -[phone] Vital Signs Date Time Vital Sign Value Performing Clinician Facility 12-30-2024 18:13-0400 Body temperature 98.3 [degF] Dr. Bella Oneal MD Work Phone: [facility] 12-30-2024 18:13-0400 Diastolic blood pressure 91 mm[Hg] Dr. Bella Oneal MD Work Phone: [facility] 12-30-2024 18:13-0400 Heart rate 95 /min Dr. Bella Oneal MD Work Phone: [facility] 12-30-2024 18:13-0400 Respiratory rate 18 /min Dr. Bella Oneal MD Work Phone: [facility] 12-30-2024 18:13-0400 SaO2% (BldA) [Mass fraction] 94 % Dr. Bella Oneal MD Work Phone: [facility] 12-30-2024 18:13-0400 Systolic blood pressure 153 mm[Hg] Dr. Bella Oneal MD Work Phone: [facility] 12-30-2024 04:51-0400 Inhaled oxygen flow rate 2 L/min Dr. Bella Oneal MD Work Phone: [facility] 12-30-2024 04:41-0400 Body height 149.[address] Bella Oneal MD Work Phone: [facility] 12-30-2024 04:41-0400 Body mass index (BMI) [Ratio] 51.8 kg/m2 Dr. Bella Oneal MD Work Phone: [facility] 12-30-2024 04:41-0400 Body weight 116.[address] Bella Oneal MD Work Phone: [facility] 12-08-2024 08:32-0400 Body mass index (BMI) [Ratio] 48.4 kg/m2 Dr. Bella Oneal MD Work Phone: [facility] 12-08-2024 08:32-0400 Body weight 108.[address] Bella Oneal MD Work Phone: [facility] 12-08-2024 08:32-0400 Diastolic blood pressure 88 mm[Hg] Dr. Bella Oneal MD Work Phone: [facility] 12-08-2024 08:32-0400 Heart rate 103 /min Dr. Bella Oneal MD Work Phone: [facility] 12-08-2024 08:32-0400 Respiratory rate 18 /min Dr. Bella Oneal MD Work Phone: [facility] 12-08-2024 08:32-0400 Systolic blood pressure 131 mm[Hg] Dr. Bella Oneal MD Work Phone: [facility] 12-03-2024 13:01-0400 Body height 149.[address] Bella Oneal MD Work Phone: [facility] 12-03-2024 13:01-0400 Body mass index (BMI) [Ratio] 48.4 kg/m2 Dr. Bella Oneal MD Work Phone: [facility] 12-03-2024 13:01-0400 Body weight 108.[address] Bella Oneal MD Work Phone: [facility] 07-23-2024 15:47-0500 Heart rate 89 /min DR ZAIN FERRO MD [facility] 07-23-2024 15:47-0500 Respiratory rate 18 /min DR ZAIN FERRO MD [facility] 07-23-2024 14:40-0500 Body temperature 97.52 [degF] DR ZAIN FERRO MD [facility] 07-23-2024 14:40-0500 Body weight 104.[address] ZAIN FERRO MD [address] [place] [address] 07-23-2024 14:40-0500 Diastolic Blood Pressure Non-Invasive 98 mm[Hg] DR ZAIN FERRO MD [address] [place] [address] 07-23-2024 14:40-0500 Heart rate 84 /min DR ZAIN FERRO MD [address] [place] [address] 07-23-2024 14:40-0500 Reason For Taking VItal Signs DR ZAIN FERRO MD [address] [place] [address] 07-23-2024 14:40-0500 Respiratory rate 16 /min DR ZAIN FERRO MD [address] [place] [address] 07-23-2024 14:40-0500 Systolic Blood Pressure Non-Invasive 166 mm[Hg] DR ZAIN FERRO MD [address] [place] [address] 07-23-2024 14:00-0500 Diastolic Blood Pressure Non-Invasive 90 mm[Hg] DR ZAIN FERRO MD [address] [place] [address] 07-23-2024 14:00-0500 Systolic Blood Pressure Non-Invasive 137 mm[Hg] DR ZAIN FERRO MD [address] [place] [address] 07-23-2024 13:40-0500 Diastolic Blood Pressure Non-Invasive 94 mm[Hg] DR ZAIN FERRO MD [address] [place] [address] 07-23-2024 13:40-0500 Heart rate 84 /min DR ZAIN FERRO MD [address] [place] [address] 07-23-2024 13:40-0500 Systolic Blood Pressure Non-Invasive 146 mm[Hg] DR ZAIN FERRO MD [address] [place] [address] 07-23-2024 11:10-0500 Body temperature 97.88 [degF] DR ZAIN FERRO MD [address] [place] [address] 07-23-2024 11:10-0500 Body weight 107.[address] ZAIN FERRO MD [address] [place] [address] 07-23-2024 11:10-0500 Heart rate 86 /min DR ZAIN FERRO MD [address] [place] [address] 07-23-2024 11:10-0500 Reason For Taking VItal Signs DR ZAIN FERRO MD [address] [place] [address] 07-23-2024 11:10-0500 Respiratory rate 18 /min DR ZAIN FERRO MD [address] [place] [address] 07-23-2024 07:34-0500 Heart rate 96 /min DR ZAIN FERRO MD [address] [place] [address] 07-23-2024 04:06-0500 Body temperature 97.88 [degF] DR ZAIN FERRO MD [address] [place] [address] 07-23-2024 04:06-0500 Reason For Taking VItal Signs DR ZAIN FERRO MD [address] [place] [address] 07-22-2024 19:33-0500 Body temperature 97.88 [degF] DR ZAIN FERRO MD [address] [place] [address] 07-22-2024 15:49-0500 Body temperature 97.7 [degF] DR ZAIN FERRO MD [address] [place] [address] 07-22-2024 13:09-0500 Body temperature 97.88 [degF] DR ZAIN FERRO MD [address] [place] [address] 07-22-2024 13:09-0500 Body weight 108.[address] ZAIN FERRO MD [address] [place] [address] 07-22-2024 06:19-0500 Body temperature 98.24 [degF] DR ZAIN FERRO MD [address] [place] [address] 07-22-2024 06:16-0500 Body height 149.[address] ZAIN FERRO MD [address] [place] [address] 07-22-2024 06:16-0500 Body weight 50.07 kg/m2 DR ZAIN FERRO MD [facility] 07-22-2024 05:06-0500 Diastolic Blood Pressure Non-Invasive 86 mm[Hg] KIZZY FROMMELT DO [place] 07-22-2024 05:06-0500 Heart rate 49 /min KZIZY FROMMELT DO [place] 07-22-2024 05:06-0500 Respiratory rate 20 /min KIZZY FROMMELT DO [place] 07-22-2024 05:06-0500 Systolic Blood Pressure Non-Invasive 164 mm[Hg] KIZZY FROMMELT DO [place] 07-22-2024 02:48-0500 Heart rate 90 /min KIZZY FROMMELT DO [place] 07-22-2024 02:48-0500 Respiratory rate 20 /min KIZZY FROMMELT DO [place] 07-22-2024 02:09-0500 Blood Pressure Cuff Size KIZZY FROMMELT DO [place] 07-22-2024 02:09-0500 Blood Pressure Location KIZZY FROMMELT DO [place] 07-22-2024 02:09-0500 Blood Pressure Method KIZZY NIETOMELT D O [place] 07-22-2024 02:09-0500 Body temperature 98.96 [degF] KIZZY FROMMELT DO [place] 07-22-2024 02:09-0500 Diastolic Blood Pressure Non-Invasive 91 mm[Hg] KIZZY FROMMELT DO [place] 07-22-2024 02:09-0500 Heart rate 46 /min KIZZY MEDEROS DO [place] 07-22-2024 02:09-0500 Respiratory rate 20 /min KIZZY MEDEROS DO [place] 07-22-2024 02:09-0500 Systolic Blood Pressure Non-Invasive 139 mm[Hg] KIZZY MEDEROS DO [place] 02-01-2022 12:30-0400 Body height 167.64 cm Connie Montgomery Other [facility] Other 02-01-2022 12:30-0400 Diastolic blood pressure 100 mm[Hg] Connie Montgomery Other [facility] Other 02-01-2022 12:30-0400 Heart rate 86 /min Connie Montgomery Other [facility] Other 02-01-2022 12:30-0400 Respiratory rate 20 /min Connie Montgomery Other [facility] Other 02-01-2022 12:30-0400 SaO2% (BldA) [Mass fraction] 98 % Connie Montgomery Other [facility] Other 02-01-2022 12:30-0400 Systolic blood pressure 156 mm[Hg] Connie Montgomery Other [facility] Other 10-19-2021 12:00-0400 Body height 167.64 cm [facility] Other [facility] Other 10-19-2021 12:00-0400 Body mass index (BMI) [Ratio] 42.77 kg/m2 [facility] Other [facility] Other 10-19-2021 12:00-0400 Body temperature 98 [degF] Erik Hargrove Other [facility] Other 10-19-2021 12:00-0400 Body weight 120.2 kg Erik Hargrove Other [facility] Other 10-19-2021 12:00-0400 Diastolic blood pressure 88 mm[Hg] Erik Hargrove Other [facility] Other 10-19-2021 12:00-0400 Heart rate 84 /min Erik Hargrove Other [facility] Other 10-19-2021 12:00-0400 Respiratory rate 20 /min Erik Hargrove Other [facility] Other 10-19-2021 12:00-0400 SaO2% (BldA) [Mass fraction] 98 % Erik Hargrove Other [facility] Other 10-19-2021 12:00-0400 Systolic blood pressure 150 mm[Hg] Erik Hargrove Other [facility] Other 09-07-2021 09:30-0500 Body height 167.64 cm Erik Hargrove Other [facility] Other 09-07-2021 09:30-0500 Body mass index (BMI) [Ratio] 42.77 kg/m2 Erik Hargrove Other [facility] Other 09-07-2021 09:30-0500 Body temperature 97.6 [degF] Erik Hargrove Other [facility] Other 09-07-2021 09:30-0500 Body weight 120.2 kg Erik Hargrove Other [facility] Other 09-07-2021 09:30-0500 Diastolic blood pressure 114 mm[Hg] Erik Hargrove Other [facility] Other 09-07-2021 09:30-0500 Heart rate 94 /min Erik Hargrove Other [facility] Other 09-07-2021 09:30-0500 Respiratory rate 18 /min Erik Hargrove Other [facility] Other 09-07-2021 09:30-0500 SaO2% (BldA) [Mass fraction] 98 % Erik Hargrove Other [facility] Other 09-07-2021 09:30-0500 Systolic blood pressure 169 mm[Hg] Erik Hargrove Other [facility] Other 07-12-2021 09:15-0500 Body height 167.64 cm Erik Hargrove Other [facility] Other 07-12-2021 09:15-0500 Body temperature 97.5 [degF] Erik Hargrove Other [facility] Other 07-12-2021 09:15-0500 Diastolic blood pressure Erik Hargrove Other [facility] Other 07-12-2021 09:15-0500 Heart rate 66 /min Erik Hargrove Other [facility] Other 07-12-2021 09:15-0500 Respiratory rate 18 /min Erik Hargrove Other [facility] Other 07-12-2021 09:15-0500 SaO2% (BldA) [Mass fraction] 92 % Erik Hargrove Other [facility] Other 07-12-2021 09:15-0500 Systolic blood pressure 92 mm[Hg] Erik Hargrove Other [facility] Other 10-01-2019 17:46-0400 Body Temperature 97.8 [degF] KATHY Hernandez [facility] Work Phone: 10-01-2019 17:46-0400 BP Diastolic 93 mm[Hg] [facility]: 10-01-2019 17:46-0400 BP Systolic 192 mm[Hg] [facility] Work [facility]: 10-01-2019 17:46-0400 Pulse (Heart Rate) 73 /min [facility]: 10-01-2019 17:46-0400 Pulse Oximetry 95 % [facility] Work Phone: 10-01-2019 17:46-0400 Respiratory Rate 19 /[facility]: 09-25-2019 12:32-0400 Body weight 108.86 kg [facility] Work Phone: 09-25-2019 12:32-0400 Height 167.64 cm [facility] Work [facility]: Encounters Encounter Date Encounter Type Care Provider Facility Start: 02-24-2025 ambulatory Agusto [facility] Facility :[facility] Start: 01-19-2025 ambulatory Yesy [place]i ty:[facility] Start: 01-12-2025 End: 01-12-[address] Bella Oneal MD Work Phone: -Cardiovascular Services Start: 01-12-2025 End: 01-12-[address] Tiburcio Osborne MD -[facility] Services Work Phone: Start: 01-12-2025 ambulatory Kayleen Pederson Fa cility:[facility] Start: 01-12-2025 End: 01-12-2025 ambulatory Tiburcio Osborne Facility:[facility] Start: 12-30-2024 End: 01-01-2025 Evaluation and management of inpatient BENNY BENJAMIN DO [facility] Start: 12-30-2024 End: 12-30-2024 Emergency department patient visit Dr. Bella Oneal MD Work Phone: -Emergency Department Work Phone: Start: 12-25-2024 ambulatory PHY WO ID REFERRING Fac ility:[facility] Start: 12-18-2024 Encounter for genera l adult medical examination without abnormal findings [facility] Start: 12-17-2024 End: 12-17-2024 ambulatory PHY WO ID REFERRING Facility: Start: 12-17-2024 End: 12-17-2024 Patient encounter procedure PHY WO ID REFERRING [facility] Start: 12-08-2024 End: 12-08-[address] Tiburcio Osborne MD -[facility] Work Phone: Start: 12-08-2024 End: 12-08-[address] Bella Oneal MD Work Phone: [facility] Work Phone: Start: 12-03-2024 End: 12-03-[address] Agusto Rogers MD -[facility] Work Phone: Start: 12-03-2024 End: 12-03-2024 ambulatory Bella Topton Facility:[facility] Start: 11-06-2024 End: 11-06-[address] Ton Vasquez MD -[facility] Specimen Work Phone: Start: 11-06-2024 End: 11-06-2024 ambulatory Bella Jm Facility:[facility] Start: 10-30-[address] Gila Bernal MD -[facility] Start: 10-30-2024 ambulatory Gila PINTO Facili ty:[facility] Start: 07-22-2024 End: 07-23-2024 Evaluation and management of inpatient DR ZAIN FERRO MD [facility] Start: 07-22-2024 End: 07-22-2024 Emergency department patient visit KIZZY MEDEROS [facility] Start: 02-11-2024 ambulatory Bella Topton Facility :[facility] Start: 02-09-2024 End: 02-09-2024 Emergency department patient visit Jason Morris Facility:[facility] Start: 02-04-2024 ambulatory Bella Topton Facility :[facility] Start: 01-23-2024 End: 01-23-2024 ambulatory Bella Jm Facility:[facility] Start: 10-03-2023 End: 10-04-2023 ambulatory KIM QUEVEDO Facility:[facility] Start: 10-03-2023 Evaluation and management of inpatient ELISABETH COFFMAN [facility] Ambulatory Start: 10-03-2023 End: 10-03-2023 ambulatory ELECTRICAL APPLIANCE SERVICER-BC ERIK N HARGR[facility] Work Phone: [facility] Work Phone: Start: 10-03-2023 End: 10-03-2023 Departed Referred ELECTRICAL APPLIANCE SERVICER-BC ERIK HARGR[place] Work Phone: [facility] ADMINISTRATOR [facility] Work Phone: Start: 09-29-2023 ambulatory ERIK N HARGR[place] Facility :[facility] Start: 09-29-2023 Evaluation and management of inpatient KATHY SHARP [facility]ulatory Start: 09-22-2023 ambulatory KIM Almendarez ty:[facility] Start: 09-22-2023 Evaluation and management of inpatient VICKI RAO [facility] Start: 08-03-2023 ambulatory ERIK HARGROVE Facility :[facility] Start: 08-03-2023 Evaluation and management of inpatient KATHY SHARP [facility] Start: 07-11-2023 End: 07-11-2023 ambulatory ERIKLARY HARGROVE Facility:[facility] Start: 07-11-2023 Evaluation and management of inpatient CHRISTIANO LINARES [facility] Start: 07-11-2023 End: 07-11-2023 ambulatory ELECTRICAL APPLIANCE SERVICER-BC ERIK N HARGR[place] Work Phone: [facility] Work Phone: Start: 07-11-2023 End: 07-11-2023 Departed Referred ELECTRICAL APPLIANCE SERVICER-BC ERIKLARY BONDS Work Phone: [facility] [employer] [facility] Work Phone: Start: 07-05-2023 End: 07-05-2023 ambulatory ERIKLARY HARGROVE Facility:[facility] Start: 07-05-2023 Evaluation and management of inpatient ELISABETH COFFMAN [facility] Start: 07-05-2023 End: 07-05-2023 ambulatory ELECTRICAL APPLIANCE SERVICER-BC ERIK N HARGROVE Work Phone: [facility] Work Phone: Start: 07-05-2023 End: 07-05-2023 Departed Referred ELECTRICAL APPLIANCE SERVICER-BC ERIKLARY BONDS Work Phone: [facility] [employer] [facility] Work Phone: Start: 06-09-2023 ambulatory ERIK HARGROVE Facility :[facility] Start: 06-09-2023 Evaluation and management of inpatient KATHY SHARP [facility] Start: 05-29-2023 End: 05-29-2023 ambulatory ERIK Zoran [place] Facility:[facility] Start: 05-29-2023 Evaluation and management of inpatient ELISABETH COFFMAN [facility] Start: 05-29-2023 End: 05-29-2023 ambulatory ELECTRICAL APPLIANCE SERVICER-BC ERIK N [place]GR[place] Work Phone: [facility] Work Phone: Start: 05-29-2023 End: 05-29-2023 Departed Referred ELECTRICAL APPLIANCE SERVICER-BC ERIKNav [place] Work Phone: [facility] ADMINIST[facility]ATOR [facility] Work Phone: Start: 05-29-2023 ambulatory ERIK HARGROVE Facility :[facility] Start: 05-29-2023 Evaluation and management of inpatient VICKI RAO [facility] Start: 04-05-2023 ambulatory ERIK Zoran [place] Facility :[facility] Start: 04-05-2023 Evaluation and management of inpatient VICKI RAO [facility] Start: 02-25-2023 ambulatory IKM Almendarez ty:[facility] Start: 02-25-2023 Evaluation and management of inpatient KIM ALVAREZ [facility] Start: 01-24-2023 ambulatory ERIK HARGROVE Facility :[facility] Start: 01-24-2023 Evaluation and management of inpatient VICKI RAO [facility] Start: 01-21-2023 ambulatory KIM Coloradoi ty:[facility] Start: 01-21-2023 Evaluation and management of inpatient KIM ALVAREZ [facility] Start: 01-08-2023 ambulatory KIM [place] ty:[facility] Start: 01-08-2023 Evaluation and management of inpatient KIM ALVAREZ [facility] Start: 01-01-2023 End: 01-01-2023 ambulatory ERIK Zoran [place] Facility:[facility] Start: 01-01-2023 Evaluation and management of inpatient JORGITO RIVERA [facility] Start: 01-01-2023 End: 01-01-2023 ambulatory ELECTRICAL APPLIANCE SERVICER-BC ERIK Zoran [place] Work Phone: [facility] Work Phone: Start: 01-01-2023 End: 01-01-2023 Departed Referred ELECTRICAL APPLIANCE SERVICER-BC ERIK HARGROVE Work Phone: [facility] Start: 01-01-2023 ambulatory ROBERTO QUEVEDO Fac[facility] Start: 01-01-2023 Evaluation and management of inpatient KIM ALVAREZ [facility] Start: 12-29-2022 ambulatory ERIK HARGROVE Facility :[facility] Start: 12-29-2022 Evaluation and management of inpatient VICKI RAO [facility] Start: 12-28-2022 End: 12-28-2022 ambulatory ERIKLARY HARGROVE Facility:[facility] Start: 12-28-2022 Evaluation and management of inpatient JORGITO RIVERA [facility] Start: 12-28-2022 End: 12-28-2022 ambulatory ELECTRICAL APPLIANCE SERVICER-BC ERIK HARGROVE Work Phone: [facility] Work Phone: Start: 12-28-2022 End: 12-28-2022 Departed Referred ELECTRICAL APPLIANCE SERVICER-MAYURI HARGR[facility] Work Phone: [facility] Start: 12-25-2022 ambulatory KIM [place] ty:[facility] Start: 12-25-2022 Evaluation and management of inpatient KIM ALVAREZ [facility] Start: 12-21-2022 End: 12-21-2022 ambulatory ERIKLARY HARGROVE Facility:[facility] Start: 12-21-2022 Evaluation and management of inpatient JORGITO RIVERA [facility] Start: 12-21-2022 End: 12-21-2022 Departed Referred ELECTRICAL APPLIANCE SERVICER-BC ERIK HARGROVE Work Phone: [facility] Start: 12-07-2022 End: 12-07-2022 ambulatory ERIKLARY HARGROVE Facility:[facility] Start: 12-07-2022 Evaluation and management of inpatient JORGITO RIVERA [facility] Start: 12-07-2022 End: 12-07-2022 Departed Referred ELECTRICAL APPLIANCE SERVICER-BC ERIK HARGROVE Work Phone: [facility] Start: 11-30-2022 End: 11-30-2022 ambulatory ERIK N HARGROVE Facility:[facility] Start: 11-30-2022 Evaluation and management of inpatient JORGITO RIVERA [facility] Start: 11-30-2022 End: 11-30-2022 Departed Referred ELECTRICAL APPLIANCE SERVICER-BC ERIK HARGROVE Work Phone: [facility] Start: 11-26-2022 End: 11-26-2022 ambulatory ERIK N HARGROVE Facility:[facility] Start: 11-26-2022 Evaluation and management of inpatient LEOPOLDO DUFFY [facility] Start: 11-26-2022 End: 11-26-2022 ambulatory ELECTRICAL APPLIANCE SERVICER-BC ERIK N HARGROVE Work Phone: [facility] Work Phone: Start: 11-26-2022 End: 11-26-2022 Departed Referred ELECTRICAL APPLIANCE SERVICER-BC ERIKLARY BONDS Work Phone: [facility] Start: 11-23-2022 End: 11-23-2022 ambulatory ERIK N BEENA Facility:[facility] Start: 11-23-2022 Evaluation and management of inpatient JORGITO RIVERA [facility] Start: 11-23-2022 End: 11-23-2022 ambulatory ELECTRICAL APPLIANCE SERVICER-BC ERIK N HARGROVE Work Phone: [facility] Work Phone: Start: 11-23-2022 End: 11-23-2022 Departed Referred ELECTRICAL APPLIANCE SERVICER-BC ERIK HARGROVE Work Phone: [facility] Start: 11-22-2022 ambulatory ERIK N HARGROVE Facility :[facility] Start: 11-22-2022 Evaluation and management of inpatient VICKI RAO [facility] Start: 11-16-2022 End: 11-16-2022 ambulatory ERIK N HARGROVE Facility:[facility] Start: 11-16-2022 Evaluation and management of inpatient JORGITO RIVERA [facility] Start: 11-16-2022 End: 11-16-2022 ambulatory ELECTRICAL APPLIANCE SERVICER-BC ERIK N HARGROVE Work Phone: [facility] Work Phone: Start: 11-16-2022 End: 11-16-2022 Departed Referred ELECTRICAL APPLIANCE SERVICER-BC ERIK HARGROVE Work Phone: [facility]ISTRATOR [facility] Start: 11-09-2022 End: 11-09-2022 ambulatory ERIK N BEENA Facility:[facility] Start: 11-09-2022 Evaluation and management of inpatient SB AGEE [facility] Start: 11-09-2022 End: 11-09-2022 Departed Referred ELECTRICAL APPLIANCE SERVICER-BC ERIK HARGR[facility] Start: 11-02-2022 End: 11-02-2022 ambulatory ERIK N BEENA Facility:[facility] Start: 11-02-2022 Evaluation and management of inpatient KARENA WHALEN [facility] Start: 11-02-2022 End: 11-02-2022 ambulatory ELECTRICAL APPLIANCE SERVICER-BC ERIK N HARGROVE Work Phone: [facility] Work Phone: Start: 11-02-2022 End: 11-02-2022 Departed Referred ELECTRICAL APPLIANCE SERVICER-BC ERIK HARGROVE Work Phone: [facility] Start: 10-29-2022 ambulatory ERIK N BEENA Facility :[facility] Start: 10-29-2022 Evaluation and management of inpatient IKM ALVAREZ [facility] Start: 10-26-2022 End: 10-26-2022 ambulatory KIM QUEVEDO Facility:[facility] Start: 10-26-2022 Evaluation and management of inpatient KRYSTEN العلي [facility] Start: 10-26-2022 End: 10-26-2022 ambulatory ELECTRICAL APPLIANCE SERVICER-BC ERIK N HARGROVE Work Phone: [facility] Work Phone: Start: 10-26-2022 End: 10-26-2022 Departed Referred ELECTRICAL APPLIANCE SERVICER-BC ERIK HARGROVE Work Phone: [facility] Start: 10-22-2022 End: 10-22-2022 ambulatory KIM QUEVEDO Facility:[facility] Start: 10-22-2022 Evaluation and management of inpatient KASIE THAPA [facility] Start: 10-22-2022 End: 10-22-2022 ambulatory ELECTRICAL APPLIANCE SERVICER-BC ERIK N HARGROVE Work Phone: [facility] Work Phone: Start: 10-22-2022 End: 10-22-2022 Departed Referred ELECTRICAL APPLIANCE SERVICER-BC ERIK HARGROVE Work Phone: [facility] Start: 10-12-2022 End: 10-12-2022 ambulatory ERIK HARGROVE Facility:[facility] Start: 10-12-2022 Evaluation and management of inpatient DOUGLAS STYLES [facility] Start: 10-12-2022 End: 10-12-2022 ambulatory ELECTRICAL APPLIANCE SERVICER-BC ERIK N HARGROVE Work Phone: [facility] Work Phone: Start: 10-12-2022 End: 10-12-2022 Departed Referred ELECTRICAL APPLIANCE SERVICER-BC ERIK HARGROVE Work Phone: [facility] Start: 10-05-2022 End: 10-05-2022 ambulatory ELECTRICAL APPLIANCE SERVICER-BC ERIK N HARGROVE Work Phone: [facility] Work Phone: Start: 10-05-2022 End: 10-05-2022 Departed Referred ELECTRICAL APPLIANCE SERVICER-BC ERIK HARGROVE Work Phone: [facility] Start: 05-22-2022 End: 05-22-2022 ambulatory ELECTRICAL APPLIANCE SERVICER-BC ERIKLARY BONDS Work Phone: [facility] Work Phone: Start: 05-22-2022 End: 05-22-2022 Departed Referred ELECTRICAL APPLIANCE SERVICER-BC ERIK HARGROVE [facility] Start: 04-16-2022 End: 04-16-2022 ambulatory Erik Hargrove Other [facility] Other Start: 04-16-2022 Telephone encounter Erik Hargrove [facility] Start: 03-20-2022 End: 03-20-2022 ambulatory Erik Hargrove Other [facility] Other Start: 03-20-2022 Telephone encounter Erik Hargrove [facility] Start: 03-19-2022 End: 03-19-2022 ambulatory Erik Hargrove Other [facility] Other Start: 03-19-2022 Telephone encounter Erik Hargrove [facility] Start: 03-14-2022 End: 03-14-2022 ambulatory Erik Hargrove Other [facility] Other Start: 03-14-2022 Telephone encounter Erik Hargrove [facility] Start: 03-06-2022 End: 03-06-2022 ambulatory Erik Hargrove Other [facility] Other Start: 03-06-2022 Telephone encounter Erik Hargrove [facility] Start: 02-01-2022 End: 02-01-2022 ambulatory Erik Hargrove Other [facility] Other Start: 02-01-2022 Office outpatient vi sit 25 minutes Connie Montgomery [facility] Start: 02-01-2022 Telephone encounter Erik Hargrove [facility] Start: 01-31-2022 End: 01-31-2022 ambulatory Erik Hargrove Other [facility] Other Start: 01-31-2022 Telephone encounter Erik Hargrove [facility] Start: 01-09-2022 End: 01-09-2022 ambulatory Erik Hargrove Other [facility] Other Start: 01-09-2022 Telephone encounter Erik Hargrove [facility] Start: 10-19-2021 End: 10-19-2021 ambulatory Erik Hargrove Other [facility] Other Start: 10-19-2021 Office outpatient vi sit 25 minutes Eriklary Bonds [facility] Start: 10-16-2021 End: 10-16-2021 ambulatory Erik Hargrove Other [facility] Other Start: 10-16-2021 Telephone encounter Erik Hargrove [facility] Start: 10-10-2021 End: 10-10-2021 ambulatory Erik Hargrove Other [facility] Other Start: 10-10-2021 Telephone encounter Erik Hargrove [facility] Start: 09-13-2021 End: 09-13-2021 ambulatory Erik Hargrove Other [facility] Other Start: 09-13-2021 Telephone encounter Erik Hargrove [facility] Start: 09-07-2021 End: 09-07-2021 ambulatory Erik Hargrove Other [facility] Other Start: 09-07-2021 Office outpatient vi sit 25 minutes Erik Hargrove [facility] Start: 09-04-2021 End: 09-04-2021 ambulatory Erik Hargrove Other [facility] Other Start: 09-04-2021 Telephone encounter Erik Hargrove [facility] Start: 07-17-2021 End: 07-17-2021 ambulatory Erik Hargrove Other [facility] Other Start: 07-17-2021 Telephone encounter Erik Hargrove [facility] Start: 07-12-2021 End: 07-12-2021 ambulatory Erik Hargrove Other [facility] Other Start: 07-12-2021 Office outpatient vi sit 15 minutes Erik Hargrove [facility] Start: 06-29-2021 End: 06-29-2021 ambulatory Erik Hargrove Other [facility] Other Start: 06-29-2021 Telephone encounter Erik Hargrove [facility] Start: 05-26-2021 End: 05-26-2021 ambulatory Erik Hargrove Other [facility] Other Start: 05-26-2021 Telephone encounter Erik Hargrove [facility] Start: 12-29-2019 End: 12-29-2019 Patient encounter procedure [facility] Start: 11-11-2019 End: 11-11-2019 Patient encounter procedure KATHY BUCHANAN -[facility] Start: 10-01-2019 End: 10-01-2019 Admission to day surgery KATHY BUCHANAN -[facility] Surgery 1st Floor Start: 09-24-2019 End: 09-24-2019 Patient encounter procedure KATHY BUCHANAN -Preadmission Testing Procedures Date Procedure Procedure Detail Performing Clinician Start: 12-30-[address] Tiffanie Oneal MD Work Phone: Start: 12-30-2024 CT of chest, abdomen and pelvis without contrast Dr. Bella Oneal MD Work Phone: Start: 12-30-2024 Plain chest X-ray Dr. Barbara Oneal MD Work Phone: Start: 12-30-[address] Bella Oneal MD Work Phone: Start: 12-30-[address] Bella Oneal MD Work Phone: Start: 12-03-2024 Plain X-ray of shoulder Dr. [...] Treatment Date Care Activity Detail Author Start: 01-12-2025 Echo tthrc r-t 2d w/wom-mode compl spec&colr d TTE W/DOPPLER COMPLETE [facility] Start: 12-30-2024 Bacteria identified in Blood by Culture Blood Culture [facility] Start: 12-30-2024 [facility] Start: 12-30-2024 [facility] Start: 12-08-2024 Evaluation of diagno stic study results [facility] MR Lower Extremity [facility] Patient Education [facility] Work Phone: Patient referral [facility] Work Phone: Thyroid stimulating hormone measurement [facility] US [facility] Immunizations Immunization Date Immunization Notes Care Provider Fa cility 12-28-2013 tetanus toxoid, redu dandre diphtheria toxoid, and acellular pertussis vaccine, adsorbed Erik Hargrove Other [facility] Other Payers Date Payer Category Payer Medicaid [id number] 2024 Medicaid [id number] 2022 Self-pay [id number] 2017 Medicaid [id number] 9bb [id number] 1974 Unknown [id number] . 840.1.690359.3.579.2.62 1974 Unknown [id number] .16.8 40.1.822572.3.579.2.627 1974 Unknown [id number] . 840.1.508775.3.579.2.627 1974 Unknown [id number] . 840.1.575962.3.579.2.627 1974 Unknown [id number] .16.8 40.1.367909.3.579.2.627 Unknown [id number] . 840.1.287809.3.579.2.512 Unknown [id number] . 840.1.037457.3.579.2.512 Unknown [id number] . 840.1.580685.3.579.2.512 Unknown [id number] . 840.1.283968.3.579.2.512 Unknown [id number] 2.16 840.1.266471.3.579.2.512 Unknown [id number] 2.16. 840.1.008171.3.579.2.512 Unknown [id number] 2.16. 840.1.578937.3.579.2.512 Unknown [id number] 2.16. 840.1.556613.3.579.2.512 Unknown [id number] 2.16. 840.1.339738.3.579.2.512 Unknown [id number] 2.16. 840.1.658728.3.579.2.512 Unknown [id number] 2.16. 840.1.591155.3.579.2.512 Unknown [id number] 2.. 840.1.819437.3.579.2.512 Unknown [id number] 2.. 840.1.508176.3.579.2.512 Unknown [id number] 2. 840.1.187680.3.579.2.512 Unknown [id number] 2. 840.1.118987.3.579.2.512 Unknown [id number] 2. 840.1.000682.3.579.2.512 Unknown [id number] 2. 840.1.957523.3.579.2.512 Unknown [id number] 2. 840.1.498863.3.579.2.512 Unknown [id number] 2.16. 840.1.720413.3.579.2.512 Unknown [id number] 2.16. 840.1.196941.3.579.2.512 Unknown [id number] 2.16. 840.1.464304.3.579.2.512 Unknown [id number] 2.16. 840.1.289913.3.579.2.512 Unknown [id number] 2.16. 840.1.462960.3.579.2.512 Unknown [id number] 2.16. 840.1.622964.3.579.2.512 Unknown [id number] 2.16 840.1.544836.3.579.2.512 Unknown [id number] 2.16. 840.1.578395.3.579.2.512 Unknown [id number] 2.16. 840.1.348660.3.579.2.512 Unknown [id number] 2.16. 840.1.103117.3.579.2.512 Unknown [id number] 2.16. 840.1.331572.3.579.2.512 Unknown [id number] 2.16. 840.1.412656.3.579.2.512 Unknown [id number] 2.16. 840.1.589399.3.579.2.512 Unknown [id number] 2.16. 840.1.841653.3.579.2.512 Unknown [id number] 2.16.8 40.1.580791.3.579.2.462 Unknown [id number] 2.16.8 40.1.362070.3.579.2.462 Unknown [id number] 2.16.8 40.1.429979.3.579.2.462 Unknown [id number] 2.16.8 40.1.531761.3.579.2.462 Unknown [id number] 2.16.8 40.1.168325.3.579.2.462 Unknown [id number] 2.16.8 40.1.407144.3.579.2.462 Unknown [id number] 2.16.8 40.1.112401.3.579.2.462 Unknown [id number] 2.16.8 40.1.178214.3.579.2.462 Unknown [id number] 2.16.8 40.1.059629.3.579.2.462 Unknown [id number] 2.16.8 40.1.350828.3.579.2.462 Unknown [id number] 2.16.8 40.1.147821.3.579.2.462 Unknown [id number] 2.16.8 40.1.514992.3.579.2.462 Unknown [id number] 2.16.8 40.1.402462.3.579.2.462 Unknown [id number] 2.16.8 40.1.811497.3.579.2.462 Social History Date Type Detail Facility Start: 11-11-2019 End: 12-30-2024 Tobacco smoking status NHIS Ex-smoker (finding) [facility] Start: 09-25-2019 No [facility] Start: 11-11-2019 Former Smoker [facility] Start: 09-25-2019 Yes [facility] Work Phone: Start: 09-25-2019 20 [facility] Start: 11-11-2019 [facility] Start: 1975 Sex Assigned At Male [facility] Sex Assigned At Male [facility] Other Tobacco smoking status Smokeless tobacco user within last 30 days [place] Sexual Orientation [facility] Sex Male (finding) [facility] Medical Equipment Procedure Code Equipment Code Equipment [...] CATH,PERITONEAL BREE 62CM FDA Start: 10-01-2019 Pen [place] 5/16 31G X 8 MM Start: 02-01-2022 Goals Date Patient Goal Desired Activity /State Functional Status Date Assessment Result Facility 07-23-2024 Functional Status Room check performed [facility] 07-23-2024 Functional Status [facility] 07-23-2024 Functional Status [facility] 07-23-2024 Functional Status Nurse Bakari Tucker gamaliel q2hrs Performed Other: [id number] [facility] 07-22-2024 Functional Status [facility] 07-22-2024 Functional Status [facility] 07-22-2024 Functional Status Done [facility] 07-22-2024 Functional Status [facility] 07-22-2024 Functional Status [facility] 07-22-2024 Functional Status Standard Safet y ID band on, Call device within reach, Bed in low position, Wheels locked, personal items within reach, Bedside Cart Locked, Visitor at bedside, Safety level maintained [place] Mental Status Date Assessment Result Facility 12-30-2024 Cognitive function Voice/Name [facility] Work Phone: 07-23-2024 Mental Status Oriented x [facility] 07-23-2024 [facility] 07-22-2024 Mental Status Orientation Asse ssment Oriented x [address] [facility] 07-22-2024 Mental Status [facility] 07-22-2024 Mental Status Orientation Oriented x 4 [facility] Clinical Notes 07-12-2021 to 01-08-2025 Note Date & Type Note Facility 01-08-2025 Note . MICRO - Microbiology PROCEDURE: Culture Body Fluid with Gram Stain [*1] SOURCE: Body Fluid BODY SITE: Abdomen COLLECTED DATE/TIME: 01/01/2025 14:24 EDT RECEIVED DATE/TIME: 01/01/2025 17:23 EDT START DATE/TIME: 01/01/2025 17:23 EDT FREE TEXT SOURCE: large cyctic abd mass FINAL REPORTS Final Report [] Verified Date/Time/Personnel: 01/08/2025 07:03 EDT No aerobes or anaerobes isolated at 7 days. PRELIMINARY REPORTS Preliminary Report [] Verified Date/Time/Personnel: 01/02/2025 10:50 EDT No growth to date Preliminary Report [] Verified Date/Time/Personnel: 01/01/2025 17:59 EDT Culture has been received in lab and is no growth to date. Routine cultures are held for 5 days. STAINS GS [] Verified Date/Time/Personnel: 01/01/2025 18:49 EDT Sedimented No organisms seen. Performing Locations *1: This test was performed at: [facility], [facility] [address] [place] [address], [place], [address]- , [facility] 01-01-2025 Note Discharge Instructions Thank you for allowing [facility] to assist you with your healthcare needs. The following is important discharge information regarding your hospital visit. Your Care Team DANTE VANG APRN-HEAD CONTROL CLERK What to do next Instructions From Your Doctor You will need close follow up with your PCP for mesenteric abdominal biopsy results Please reach out to Oncology department for follow up if you do not hear from anyone regarding biopsy results Scheduled Follow-Up Appointments Appointment Type When Where Contact Information StatusCT Abdomen w/o Contrast 01/05/2025 10:00 AM EDT [facility] [phone] Confirmed Follow Up Appointments [facility] with [facility] Please call report to [phone]. When:Within 1-2 days Follow Up with ZAHIDA JANE When:Within 1-2 days Where:[facility] [address] [place] [address]- [phone] Business (1) Follow Up with GENIE NIÑO When:Within 1-2 days Where:[address] [place] [address] Hematology [place] [address]- [phone] Business (1) Follow Up with DANTE VANG When:Within 1-2 days Where:[address] [facility] [place] [address]- [phone] Business (1) The Following Activity and Diet Have Been Ordered for You Transfer of Care Activity - Ordered -- Activity As Tolerated, 01/01/25 12:21:00 EDT Transfer of Care Diet - Ordered -- Type of Diet: Regular Diet, 01/01/25 12:21:00 EDT The Following Equipment Has Been Ordered for You No qualifying data available. The Following Treatments Have Been Ordered for You Discharge Labs No qualifying data available. Discharge Radiology No qualifying data available. Other Therapies No qualifying data available. Post Acute Orders Transfer of Care Admission Level of Care - Ordered -- Level of Care SNF, 01/01/25 12:21:53 EDT Transfer of Care Code Status - Ordered -- Full Code, Constant Order Transfer of Care Orders Electronically Signed By - Ordered -- 01/01/25 12:21:00 EDT, FLO SCHUMACHER DO Transfer of Care Prognosis - Ordered -- Fair, Patient Aware: Yes Transfer of Care Rehab Potential - Ordered -- Rehab potential fair, 01/01/25 12:21:53 EDT Someone Will Contact You Regarding These Home Health Referrals No home referrals have been ordered for you. No one will call you. Allergies NKA Medications Please ask your primary doctor or pharmacist before taking any other medication not listed, including over the counter drugs, herbal medications, vitamins and or supplements as they may interact with your home medications. What How Much When Instructions Last Dose New cefdinir (cefdinir 300 mg oral capsule) 1 cap by mouth Every 12 hours Duration: 6 Days Changed atorvastatin (atorvastatin 40 mg oral tablet) 1 tab(s) by mouth Every day Unchanged amLODIPine (amLODIPine 5 mg oral tablet) See instructions 1 tab(s) Oral qDay Unchanged aspirin (aspirin 81 mg oral delayed release tablet) 1 tab(s) by mouth Every day Unchanged ciclopirox topical (Ciclodan 8% topical solution) 1 application Topical Every day Unchanged cyclobenzaprine (cyclobenzaprine 10 mg [...] Once a day (in the morning) Unchanged fluticasone-salmeterol (Advair Diskus 250 mcg-50 mcg inhalation powder) 1 puff(s) by inhalation Two (2) times a day Unchanged gabapentin (gabapentin 300 mg oral capsule) 1 cap Once a day Unchanged lidocaine topical (lidocaine 4% patch) 1 patch(es) Topical Once a day as needed for Pain lower back Unchanged lidocaine topical (lidocaine 4% topical gel) 1 pump(s) Topical Once a day as needed for as needed for pain not to exceed 12 pumps/ day Unchanged loperamide (loperamide 2 mg oral capsule) 1 cap by mouth Every 4 hours as needed for Diarrhea Unchanged magnesium oxide (magnesium oxide 400 mg oral tablet) 1 tab(s) by mouth Three (3) times a day Unchanged melatonin (Melatonin 5 mg oral tablet) 1 tab(s) by mouth Daily at bedtime as needed for as needed for insomnia Unchanged metoprolol (metoprolol succinate 50 mg oral TABLET extended release) 1 tab(s) by mouth Once a day Do not crush or chew (controlled release) Unchanged midodrine (midodrine 5 mg oral tablet) See instructions 1 tab(s) Oral TID Unchanged mupirocin topical (mupirocin 2% topical cream) 1 application Topical Once a day Unchanged nystatin topical (Mycostatin 100,000 units/ g topical ointment) 1 application Topical Four (4) times a day Unchanged ondansetron (ondansetron 4 mg oral tablet) 2 tab(s) by mouth Saturday / Saturday / Saturday Before dialysis Unchanged pantoprazole (pantoprazole 40 mg oral enteric coated tablet) 1 tab(s) by mouth Two (2) times a day Unchanged polyethylene glycol 3350 (MiraLax oral powder for reconstitution) 17 gram(s) by mouth Saturday / Saturday / Saturday Unchanged sodium chloride nasal (sodium chloride nasal [...] medication providers or retail pharmacies. Education Materials Aspiration Pneumonia Aspiration pneumonia is an infection in the lungs. It occurs when saliva or liquid contaminated with bacteria is inhaled (aspirated) into the lungs. When these things get into the lungs, swelling (inflammation) and infection can occur. This can make it difficult to breathe. Aspiration pneumonia is a serious condition and can be life threatening. What are the causes? This condition is caused when saliva or liquid from the mouth, throat, or stomach is inhaled into the lungs, and when those fluids are contaminated with bacteria. What increases the risk? The following factors may make you more likely to develop this condition: A narrowing of the tube that carries food to the stomach (esophageal narrowing). Having gastroesophageal reflux disease (GERD). Having a weak immune system. Having diabetes. Having poor oral hygiene. Being malnourished. The condition is more likely to occur when a person's cough (gag) reflex, or ability to swallow, has decreased. Some things that can cause this decrease include: Having a brain injury or disease, such as stroke, seizures, Parkinson disease, dementia, or amyotrophic lateral sclerosis (ALS). Being given a general anesthetic for procedures. Drinking too much alcohol. If a person passes out and vomits, vomit can be inhaled into the lungs. Taking certain medicines, such as tranquilizers or sedatives. What are the signs or symptoms? Symptoms of this condition include: Fever. A cough with secretions that are yellow, harp, or green. Breathing problems, such as wheezing or shortness of breath. Chest pain. Being more tired than usual (fatigue). Having a history of coughing while eating or drinking. Bad breath. Bluish color to the lips, skin, or fingers. How is this diagnosed? This condition may be diagnosed based on: A physical exam. Tests, such as: ? Chest X-ray. ? Sputum culture. Saliva and mucus (sputum) are collected from the lungs or the tubes that carry air to the lungs (bronchi). The sputum is then tested for bacteria. ? Oximetry. A sensor or clip is placed on areas such as a finger, earlobe, or toe to measure the oxygen level in your blood. ? Blood tests. ? Swallowing study. This test looks at how food is swallowed and whether it goes into your breathing tube (trachea) or esophagus. ? Bronchoscopy. This test uses a flexible tube (bronchoscope) to see inside the lungs. How is this treated? This condition may be treated with: Medicines. Antibiotic medicine will be given to kill the pneumonia bacteria. Other medicines may also be used to reduce fever or pain. Breathing assistance and oxygen therapy. Depending on how well you are breathing, you may need to be given oxygen, or you may need breathing support from a breathing machine (ventilator). Thoracentesis. This is a procedure to remove fluid that has built up in the space between the linings of the chest wall and the lungs. Feeding tube and diet change. For people who have difficulty swallowing, a feeding tube might be placed in the stomach, or they may be asked to avoid certain food textures or liquids when eating. Follow these instructions at home: Medicines Take eywx-slc-scwbfjs and prescription medicines only as told by your health care provider. ? If you were prescribed an antibiotic medicine, take it as told by your health care provider. Do not stop taking the antibiotic even if you start to feel better. ? Take cough medicine only if you are losing sleep. Cough medicine can prevent your body s natural ability to remove mucus from your lungs. General instructions Carefully follow any eating instructions you were given, such as avoiding certain food textures or thickening your liquids. Thickening liquids reduces the risk of developing aspiration pneumonia again. Use breathing exercises such as postural drainage, deep breathing, and incentive spirometry to help expel secretions. Rest as instructed by your health care provider. Sleep in a semi-upright position at night. Try to sleep in a reclining chair, or place a few pillows under your head. Do not use any products that contain nicotine or tobacco, such as cigarettes and e-cigarettes. If you need help quitting, ask your health care provider. Keep all follow-up visits as told by your health care provider. This is important. Contact a health care provider if: You have a fever. You have a worsening cough with yellow, harp, or green secretions. You have coughing while eating or drinking. Get help right away if: You have worsening shortness of breath, wheezing, or difficulty breathing. You have chest pain. Summary Aspiration pneumonia is an infection in the lungs. It is caused when saliva or liquid from the mouth, throat, or stomach is inhaled into the lungs. Aspiration pneumonia is more likely to occur when a person's cough reflex or ability to swallow has decreased. Symptoms of aspiration pneumonia include coughing, breathing problems, fever, and chest pain. Aspiration pneumonia may be treated with antibiotic medicine, other medicines to reduce pain or fever, and breathing assistance or oxygen therapy. This information is not intended to replace advice given to you by your health care provider. Make sure you discuss any questions you have with your health care provider. Document Released: 04/28/2010 Document Revised: 06/13/2018 Document Reviewed: 08/06/2017 Elsevier Patient Education 2019 [employer]vier Inc. Additional Information VACCINATE! IT SAVES LIVES! Members of the community who have not yet received the COVID-19 vaccine and would like to receive it can visit one of [facility] vaccine clinics. There are many vaccine clinic locations within the [facility]. For locations and available times, please visit [email or web address].coronavirus.o hio.gov/. It is important to note that some COVID mobile vaccine clinics are held outdoors and may be canceled in rainy or stormy conditions. To learn more about pediatric vaccinations (ages 5-11), we invite you to visit the [facility] webpage. https://www.Visual IQs.org/p ages/5524-Nkoie-Zkitcnlcorr-Freq twhmgl-Uwctk-Aisjskdrf.html To learn more about the COVID-19 vaccine, we invite you to visit the CDC website for a list of frequently asked questions.https://www.cdc.gov/co ronavirus/2019-ncov/vaccines/faq .html [facility] Patient Portal Access Instructions: Stay connected with your healthcare team and access your personal medical information anytime with the [facility] Patient Portal. Please follow the directions below to create your [facility] account: 1.Access the email account you provided upon registration to the hospital/physician office.2.Look for an invitation email from [facility].3.Open the email and access the invitation link: Accept Invitation to [facility].4.Fill in the required chase to create your account. To access your account, visit [email or web address]. Click the blue button labeled Access Patient Portal and then log in with the username and password that you created in the steps above. You will be able to view your test results, lab results, a summary of your visits, upcoming appointments and more. There is also a convenient messaging option where you can send secure messages to your provider. In addition, you will have the ability to download any documents or summaries to your computer and/or send the information securely to a physician. Remember that your healthcare information is confidential, so carefully consider who you will allow to register on the [facility] Patient Portal for access to your information. You can also access the [facility] Patient Portal on the [facility] dina. Simply click on Patient Portal and then log into your account. If you would like to receive a full copy of your medical records, please contact the [facility] Medical Records Department by calling [phone], Saturday through Saturday between 8 a.m. and 4:30 p.m. HOW TO SAFELY DISPOSE OF PRESCRIPTION MEDICATIONS Please use one of the following methods to safely dispose of your unused medications. 1.Use a drug disposal kit: the drug disposal pouch allows you to safely discard your old and unused drugs. Ask your nurse to give you one when you are discharged.2.Visit a local take-back location: Many local pharmacies and police departments have programs that collect old and unwanted prescription drugs. Call your local pharmacy or go to http://GLADvertising.com.Tigerspike/7T2Fw7j to find one close to you.3.Make use of household items: Use cat litter or old coffee grounds to dispose medications if other options are not available. Mix your drugs with these household products, seal them in an airtight container and throw it into the garbage. Call [facility]: [phone] to be sure your drugs can be [...] a CHART COPY. Signatures Patient Education Materials Aspiration Pneumonia Medication Leaflets My discharge plan and instructions have been reviewed and explained to me and I,AGUSTO MONSALVE understand my current condition and have read and understand these discharge instructions. I have received a written copy of the plan/instructions. If I have questions, I am aware that I should contact my doctor. Patient/Public Health Specialist Signature: Date/Time: Relationship to Patient: Witness Name/Signature: Date/Time: [facility] 01-01-2025 Discharge summary Date of Service 01/01/25 Discharge Diagnosis Multifocal pneumonia Otitis media Leukocytosis Concern for mesenteric abdominal mass ESRD on HD [facility] Hyperkalemia Hyponatremia Chronic anemia T2DM Other history HTN, HLD, CAD s/p CABG, GERD, obesity Hospital Course 49-year-old male with past medical history of end-stage renal disease on hemodialysis Saturday, hypertension, hyperlipidemia, CAD status post CABG, type 2 diabetes mellitus, BPH, GERD, obesity, anemia, resides at [facility]. Patient presented from [facility] to [facility] on 12/30/2024 for shortness of breath and abdominal pain. 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 He was found to have leukocytosis of 19. Patient was afebrile, tachycardic, on room air. Transferred to [facility] for further management. Lab work at [facility] showed leukocytosis of 16.1, hemoglobin 9.8, glucose 139, sodium 128, potassium 5.2, BUN 46, creatinine 5.02. Lactic acid was 0.7. Troponin was negative. MRSA PCR negative. Patient was afebrile, tachycardic at 111, blood pressure 124/86, on room air. Patient was started on broad spectrum antibiotics for multifocal pneumonia. His oxygen remained stable on room air. He was transitioned to cefdinir and will complete a total of 7 days of antibiotic therapy. The patient was treated with left ear drops for otitis media, he was recommended to follow up with ENT at discharge. Patient underwent IR guided abdominal/mesenteric biopsy on 01/01/2025. Patient will need close follow-up with either his PCP or oncology regarding biopsy results. This was also discussed with patient's POA/sister Mimi. Additionally, nephrology followed for dialysis management, patient underwent dialysis x 2 during his hospital stay. He will continue on his usual schedule at discharge. The patient is stable for discharge back to his nursing facility today. Updated sister over phone. Case discussed with Dr. Schumacher. Allergies NKA Consults Consult to Palliative Care - Ordered -- 12/31/24 14:16:00 EDT, advance directives, MD LUIS CARLOS. SANTANA Barnes, positive palliative screen Consult to Physician (Physician Consult) - Ordered -- 12/30/24 21:44:00 EDT, TRAMAINE BOURNE DO, Routine, ESRD HD Consult to Skin Team Nurse - Ordered -- 12/31/24 21:00:00 EDT, Impaired skin integrity, outer L thigh, had skin cancer removed month ago states it has bveen getting infected at [place] Physical Exam Vitals and Measurements T: 36.8 C (Oral) TMIN: 36.4 C (Oral) TMAX: 37 C (Oral) HR: 68 (Apical) RR: 16 BP: 116/78 SpO2: 93% WT: 106.7 kg Weight Dosing Weight: 106.7 kg (12/31/24) Dosing Weight: 108.4 kg (12/31/24) General: No acute distress. Alert and Appropriate Skin: No rash. Warm, Dry HEENT: Head is normocephalic and atraumatic. No lesions. Pupils equal in size. Extraocular movements within normal limits. Nose: No septal deviation. Mouth: Oropharynx mucosa is without lesion. Neck: Supple. Lungs: Bilaterally diminished breath sounds with no crepitation or wheeze. Unlabored on room air Cardiovascular: Heart is regular rhythm, S1S2, No extra-audible heart tones Abdomen: Abdomen is soft, nontender. Rounded. Bowel sounds positive all four quadrants. Extremities: No clubbing, cyanosis. Peripheral pulses palpable. No calf tenderness. Adequate peripheral circulation. Neurological: The patient is awake, oriented to time, people and place. Following simple commands, moving all extremities. Code Status Code Status - Ordered -- 12/30/24 21:44:00 EDT, Full Code, Constant Order Admission Date 12/30/24 Discharge Date 01/01/25 Patient Instructions You will need close follow up with your PCP for mesenteric abdominal biopsy results Please reach out to Oncology department for follow up if you do not hear from anyone regarding biopsy results Medications New Prescription cefdinir (cefdinir 300 mg oral capsule)1 cap by mouth every 12 hours for 6 Days. Refills: 0. Changed atorvastatin (atorvastatin 40 mg oral tablet)1 tab(s) by mouth every day. Unchanged amLODIPine (amLODIPine 5 mg oral tablet)1 tab(s) Oral qDay. aspirin (aspirin 81 mg oral delayed release tablet)1 tab(s) by mouth every day. ciclopirox topical (Ciclodan 8% topical solution)1 application Topical every day. cyclobenzaprine (cyclobenzaprine 10 mg oral tablet)1 tab(s) by mouth daily at bedtime. diphenhydrAMINE (diphenhydrAMINE 25 mg oral tablet)1 tab(s) by mouth daily at bedtime as needed as needed for itching. For itching not insomnia. famotidine (famotidine 40 mg oral tablet)1 tab(s) by mouth daily at bedtime. fluticasone nasal (fluticasone proprionate NASAL 50 mcg/ spray)1 spray(s) each nostril once a day (in the morning). fluticasone-salmeterol (Advair Diskus 250 mcg-50 mcg inhalation powder)1 puff(s) by inhalation two (2) times a day. gabapentin (gabapentin 300 mg oral capsule)1 cap once a day. lidocaine topical (lidocaine 4% patch)1 patch(es) Topical once a day as needed Pain. lower back. lidocaine topical (lidocaine 4% topical gel)1 pump(s) Topical once a day as needed as needed for pain. not to exceed 12 pumps/day. loperamide (loperamide 2 mg oral capsule)1 cap by mouth every 4 hours as needed Diarrhea. magnesium oxide (magnesium oxide 400 mg oral tablet)1 tab(s) by mouth three (3) times a day. melatonin (Melatonin 5 mg oral tablet)1 tab(s) by mouth daily at bedtime as needed as needed for insomnia. metoprolol (metoprolol succinate 50 mg oral TABLET extended release)1 tab(s) by mouth once a day. Do not crush or chew (controlled release). midodrine (midodrine 5 mg oral tablet)1 tab(s) Oral TID. mupirocin topical (mupirocin 2% topical cream)1 application Topical once a day. nystatin topical (Mycostatin 100,000 units/g topical ointment)1 application Topical four (4) times a day. ondansetron (ondansetron 4 mg oral tablet)2 tab(s) by mouth Saturday / Saturday / Saturday. Before dialysis. pantoprazole (pantoprazole 40 mg oral enteric coated tablet)1 tab(s) by mouth two (2) times a day. polyethylene glycol 3350 (MiraLax oral powder for reconstitution)17 gram(s) by mouth Saturday / Saturday / Saturday. sodium chloride nasal (sodium chloride nasal spray)1 spray(s) each nostril As Directed as needed dry nasal passage. tamsulosin (tamsulosin 0.4 mg oral capsule)1 cap by mouth once a day. Follow Up Follow Up with ZAHIDA JANE When:Within 1-2 days Where:[facility] [address] [place] [address]- [phone] Business (1) Follow Up with GENIE NIÑO When:Within 1-2 days Where:[address] [facility] Hematology [place] [address]- [phone] Business (1) Follow Up with DANTE VANG When:Within 1-2 days Where:[address] [facility] [place] [address] [phone] Business (1) Discharge Diet Transfer of Care Diet - Ordered -- Type of Diet: Regular Diet, 01/01/25 12:21:00 EDT Discharge Activity Transfer of Care Activity - Ordered -- Activity As Tolerated, 01/01/25 12:21:00 EDT Condition on Discharge Stable Discharge Disposition SNF Information Provided To Patient Sister Hailey Time Spent 32 minutes Digitally Signed by RILEY PIERRE on 01/01/2025 12:24 PM Digitally Signed by RILEY PIERRE on 01/01/2025 01:[address] [facility] 01-01-2025 Hospital Discharg e instructions Patient Education 01/01/2025 18:13:32 Aspiration Pneumonia Aspiration Pneumonia Aspiration pneumonia is an infection in the lungs. It occurs when saliva or liquid contaminated with bacteria is inhaled (aspirated) into the lungs. When these things get into the lungs, swelling (inflammation) and infection can occur. This can make it difficult to breathe. Aspiration pneumonia is a serious condition and can be life threatening. What are the causes? This condition is caused when saliva or liquid from the mouth, throat, or stomach is inhaled into the lungs, and when those fluids are contaminated with bacteria. What increases the risk? The following factors may make you more likely to develop this condition: A narrowing of the tube that carries food to the stomach (esophageal narrowing). Having gastroesophageal reflux disease (GERD). Having a weak immune system. Having diabetes. Having poor oral hygiene. Being malnourished. The condition is more likely to occur when a person's cough (gag) reflex, or ability to swallow, has decreased. Some things that can cause this decrease include: Having a brain injury or disease, such as stroke, seizures, Parkinson disease, dementia, or amyotrophic lateral sclerosis (ALS). Being given a general anesthetic for procedures. Drinking too much alcohol. If a person passes out and vomits, vomit can be inhaled into the lungs. Taking certain medicines, such as tranquilizers or sedatives. What are the signs or symptoms? Symptoms of this condition include: Fever. A cough with secretions that are yellow, harp, or green. Breathing problems, such as wheezing or shortness of breath. Chest pain. Being more tired than usual (fatigue). Having a history of coughing while eating or drinking. Bad breath. Bluish color to the lips, skin, or fingers. How is this diagnosed? This condition may be diagnosed based on: A physical exam. Tests, such as: ?Chest X-ray. ?Sputum culture. Saliva and mucus (sputum) are collected from the lungs or the tubes that carry air to the lungs (bronchi). The sputum is then tested for bacteria. ?Oximetry. A sensor or clip is placed on areas such as a finger, earlobe, or toe to measure the oxygen level in your blood. ?Blood tests. ?Swallowing study. This test looks at how food is swallowed and whether it goes into your breathing tube (trachea) or esophagus. ?Bronchoscopy. This test uses a flexible tube (bronchoscope) to see inside the lungs. How is this treated? This condition may be treated with: Medicines. Antibiotic medicine will be given to kill the pneumonia bacteria. Other medicines may also be used to reduce fever or pain. Breathing assistance and oxygen therapy. Depending on how well you are breathing, you may need to be given oxygen, or you may need breathing support from a breathing machine (ventilator). Thoracentesis. This is a procedure to remove fluid that has built up in the space between the linings of the chest wall and the lungs. Feeding tube and diet change. For people who have difficulty swallowing, a feeding tube might be placed in the stomach, or they may be asked to avoid certain food textures or liquids when eating. Follow these instructions at home: Medicines Take lsjz-wtf-ibzqvmy and prescription medicines only as told by your health care provider. ?If you were prescribed an antibiotic medicine, take it as told by your health care provider. Do not stop taking the antibiotic even if you start to feel better. ?Take cough medicine only if you are losing sleep. Cough medicine can prevent your body s natural ability to remove mucus from your lungs. General instructions Carefully follow any eating instructions you were given, such as avoiding certain food textures or thickening your liquids. Thickening liquids reduces the risk of developing aspiration pneumonia again. Use breathing exercises such as postural drainage, deep breathing, and incentive spirometry to help expel secretions. Rest as instructed by your health care provider. Sleep in a semi-upright position at night. Try to sleep in a reclining chair, or place a few pillows under your head. Do not use any products that contain nicotine or tobacco, such as cigarettes and e-cigarettes. If you need help quitting, ask your health care provider. Keep all follow-up visits as told by your health care provider. This is important. Contact a health care provider if: You have a fever. You have a worsening cough with yellow, harp, or green secretions. You have coughing while eating or drinking. Get help right away if: You have worsening shortness of breath, wheezing, or difficulty breathing. You have chest pain. Summary Aspiration pneumonia is an infection in the lungs. It is caused when saliva or liquid from the mouth, throat, or stomach is inhaled into the lungs. Aspiration pneumonia is more likely to occur when a person's cough reflex or ability to swallow has decreased. Symptoms of aspiration pneumonia include coughing, breathing problems, fever, and chest pain. Aspiration pneumonia may be treated with antibiotic medicine, other medicines to reduce pain or fever, and breathing assistance or oxygen therapy. This information is not intended to replace advice given to you by your health care provider. Make sure you discuss any questions you have with your health care provider. Document Released: 04/28/2010 Document Revised: 06/13/2018 Document Reviewed: 08/06/2017 [employer] Patient Education 2020 [employer]. Follow Up Care 12/30/2024 09:12:01 With:Patient is discharged to [facility] LOC. Please call report to [phone]. Address:Unknown When:1-2 days With:ZAHIDA JANE Address: [facility] [address] [place] [id number] [phone] Business (1) When:1-2 days With:GENIE NIÑO Address: [address] [place] [address] Hematology [place] [address] [phone] Business (1) When:1-2 days With:DANTE VANG Address: [address] [facility] [place] [address] [phone] Business (1) When:1-[address] [facility] 01-01-2025 Note Discharge Instructions Thank you for allowing [facility] to assist you with your healthcare needs. The following is important discharge information regarding your hospital visit. Your Care Team DANTE VANG What to do next Instructions From Your Doctor You will need close follow up with your PCP for mesenteric abdominal biopsy results Please reach out to Oncology department for follow up if you do not hear from anyone regarding biopsy results Scheduled Follow-Up Appointments Appointment Type When Where Contact Information StatusCT Abdomen w/o Contrast 01/05/2025 10:00 AM EDT [facility] [phone] Confirmed Follow Up Appointments Follow Up with Patient is [facility] LOC. Please call report to [phone]. When:Within 1-2 days Follow Up with ZAHIDA JANE When:Within 1-2 days Where:[facility] [address] [place] [address] [phone] Business (1) Follow Up with GENIE NIÑO When:Within 1-2 days Where:[address] [facility] Hematology [place] [address] [phone] Business (1) Follow Up with DANTE VANG When:Within 1-2 days Where:[address] [facility] [place] [address]- [phone] Business (1) The Following Activity and Diet Have Been Ordered for You Transfer of Care Activity - Ordered -- Activity As Tolerated, 01/01/25 12:21:00 EDT Transfer of Care Diet - Ordered -- Type of Diet: Regular Diet, 01/01/25 12:21:00 EDT The Following Equipment Has Been Ordered for You No qualifying data available. The Following Treatments Have Been Ordered for You Discharge Labs No qualifying data available. Discharge Radiology No qualifying data available. Other Therapies No qualifying data available. Post Acute Orders Transfer of Care Admission Level of Care - Ordered -- Level of Care SNF, 01/01/25 12:21:53 EDT Transfer of Care Code Status - Ordered -- Full Code, Constant Order Transfer of Care Orders Electronically Signed By - Ordered -- 01/01/25 12:21:00 EDT, FLO SCHUMACHER DO Transfer of Care Prognosis - Ordered -- Fair, Patient Aware: Yes Transfer of Care Rehab Potential - Ordered -- Rehab potential fair, 01/01/25 12:21:53 EDT Someone Will Contact You Regarding These Home Health Referrals No home referrals have been ordered for you. No one will call you. Allergies NKA Medications Please ask your primary doctor or pharmacist before taking any other medication not listed, including over the counter drugs, herbal medications, vitamins and or supplements as they may interact with your home medications. What How Much When Instructions Last Dose New cefdinir (cefdinir 300 mg oral capsule) 1 cap by mouth Every 12 hours Duration: 6 Days Changed atorvastatin (atorvastatin 40 mg oral tablet) 1 tab(s) by mouth Every day Unchanged amLODIPine (amLODIPine 5 mg oral tablet) See instructions 1 tab(s) Oral qDay Unchanged aspirin (aspirin 81 mg oral delayed release tablet) 1 tab(s) by mouth Every day Unchanged ciclopirox topical (Ciclodan 8% topical solution) 1 application Topical Every day Unchanged cyclobenzaprine (cyclobenzaprine 10 mg [...] Once a day (in the morning) Unchanged fluticasone-salmeterol (Advair Diskus 250 mcg-50 mcg inhalation powder) 1 puff(s) by inhalation Two (2) times a day Unchanged gabapentin (gabapentin 300 mg oral capsule) 1 cap Once a day Unchanged lidocaine topical (lidocaine 4% patch) 1 patch(es) Topical Once a day as needed for Pain lower back Unchanged lidocaine topical (lidocaine 4% topical gel) 1 pump(s) Topical Once a day as needed for as needed for pain not to exceed 12 pumps/ day Unchanged loperamide (loperamide 2 mg oral capsule) 1 cap by mouth Every 4 hours as needed for Diarrhea Unchanged magnesium oxide (magnesium oxide 400 mg oral tablet) 1 tab(s) by mouth Three (3) times a day Unchanged melatonin (Melatonin 5 mg oral tablet) 1 tab(s) by mouth Daily at bedtime as needed for as needed for insomnia Unchanged metoprolol (metoprolol succinate 50 mg oral TABLET extended release) 1 tab(s) by mouth Once a day Do not crush or chew (controlled release) Unchanged midodrine (midodrine 5 mg oral tablet) See instructions 1 tab(s) Oral TID Unchanged mupirocin topical (mupirocin 2% topical cream) 1 application Topical Once a day Unchanged nystatin topical (Mycostatin 100,000 units/ g topical ointment) 1 application Topical Four (4) times a day Unchanged ondansetron (ondansetron 4 mg oral tablet) 2 tab(s) by mouth Saturday / Saturday / Saturday Before dialysis Unchanged pantoprazole (pantoprazole 40 mg oral enteric coated tablet) 1 tab(s) by mouth Two (2) times a day Unchanged polyethylene glycol 3350 (MiraLax oral powder for reconstitution) 17 gram(s) by mouth Saturday / Saturday / Saturday Unchanged sodium chloride nasal (sodium chloride nasal [...] medication providers or retail pharmacies. Education Materials Aspiration Pneumonia Aspiration pneumonia is an infection in the lungs. It occurs when saliva or liquid contaminated with bacteria is inhaled (aspirated) into the lungs. When these things get into the lungs, swelling (inflammation) and infection can occur. This can make it difficult to breathe. Aspiration pneumonia is a serious condition and can be life threatening. What are the causes? This condition is caused when saliva or liquid from the mouth, throat, or stomach is inhaled into the lungs, and when those fluids are contaminated with bacteria. What increases the risk? The following factors may make you more likely to develop this condition: A narrowing of the tube that carries food to the stomach (esophageal narrowing). Having gastroesophageal reflux disease (GERD). Having a weak immune system. Having diabetes. Having poor oral hygiene. Being malnourished. The condition is more likely to occur when a person's cough (gag) reflex, or ability to swallow, has decreased. Some things that can cause this decrease include: Having a brain injury or disease, such as stroke, seizures, Parkinson disease, dementia, or amyotrophic lateral sclerosis (ALS). Being given a general anesthetic for procedures. Drinking too much alcohol. If a person passes out and vomits, vomit can be inhaled into the lungs. Taking certain medicines, such as tranquilizers or sedatives. What are the signs or symptoms? Symptoms of this condition include: Fever. A cough with secretions that are yellow, harp, or green. Breathing problems, such as wheezing or shortness of breath. Chest pain. Being more tired than usual (fatigue). Having a history of coughing while eating or drinking. Bad breath. Bluish color to the lips, skin, or fingers. How is this diagnosed? This condition may be diagnosed based on: A physical exam. Tests, such as: ? Chest X-ray. ? Sputum culture. Saliva and mucus (sputum) are collected from the lungs or the tubes that carry air to the lungs (bronchi). The sputum is then tested for bacteria. ? Oximetry. A sensor or clip is placed on areas such as a finger, earlobe, or toe to measure the oxygen level in your blood. ? Blood tests. ? Swallowing study. This test looks at how food is swallowed and whether it goes into your breathing tube (trachea) or esophagus. ? Bronchoscopy. This test uses a flexible tube (bronchoscope) to see inside the lungs. How is this treated? This condition may be treated with: Medicines. Antibiotic medicine will be given to kill the pneumonia bacteria. Other medicines may also be used to reduce fever or pain. Breathing assistance and oxygen therapy. Depending on how well you are breathing, you may need to be given oxygen, or you may need breathing support from a breathing machine (ventilator). Thoracentesis. This is a procedure to remove fluid that has built up in the space between the linings of the chest wall and the lungs. Feeding tube and diet change. For people who have difficulty swallowing, a feeding tube might be placed in the stomach, or they may be asked to avoid certain food textures or liquids when eating. Follow these instructions at home: Medicines Take ozyx-gzz-getqlfo and prescription medicines only as told by your health care provider. ? If you were prescribed an antibiotic medicine, take it as told by your health care provider. Do not stop taking the antibiotic even if you start to feel better. ? Take cough medicine only if you are losing sleep. Cough medicine can prevent your body s natural ability to remove mucus from your lungs. General instructions Carefully follow any eating instructions you were given, such as avoiding certain food textures or thickening your liquids. Thickening liquids reduces the risk of developing aspiration pneumonia again. Use breathing exercises such as postural drainage, deep breathing, and incentive spirometry to help expel secretions. Rest as instructed by your health care provider. Sleep in a semi-upright position at night. Try to sleep in a reclining chair, or place a few pillows under your head. Do not use any products that contain nicotine or tobacco, such as cigarettes and e-cigarettes. If you need help quitting, ask your health care provider. Keep all follow-up visits as told by your health care provider. This is important. Contact a health care provider if: You have a fever. You have a worsening cough with yellow, harp, or green secretions. You have coughing while eating or drinking. Get help right away if: You have worsening shortness of breath, wheezing, or difficulty breathing. You have chest pain. Summary Aspiration pneumonia is an infection in the lungs. It is caused when saliva or liquid from the mouth, throat, or stomach is inhaled into the lungs. Aspiration pneumonia is more likely to occur when a person's cough reflex or ability to swallow has decreased. Symptoms of aspiration pneumonia include coughing, breathing problems, fever, and chest pain. Aspiration pneumonia may be treated with antibiotic medicine, other medicines to reduce pain or fever, and breathing assistance or oxygen therapy. This information is not intended to replace advice given to you by your health care provider. Make sure you discuss any questions you have with your health care provider. Document Released: 04/28/2010 Document Revised: 06/13/2018 Document Reviewed: 08/06/2017 [employer] Patient Education 2020 [employer]. Additional Information VACCINATE! IT SAVES LIVES! Members of the community who have not yet received the COVID-19 vaccine and would like to receive it can visit one of [facility] vaccine clinics. There are many vaccine clinic locations within the [facility]. For locations and available times, please visit [email or web address] vao.[email or web address] It is important to note that some COVID mobile vaccine clinics are held outdoors and may be canceled in rainy or stormy conditions. To learn more about pediatric vaccinations (ages 5-11), we invite you to visit the [facility] webpage. [email or web address] To learn more about the COVID-19 vaccine, we invite you to visit the CDC website for a list of frequently asked questions.https://www.cdc.gov/co ronavirus/2019-ncov/vaccines/faq .html [facility] Patient Portal Access Instructions: Stay connected with your healthcare team and access your personal medical information anytime with the [facility] Patient Portal. Please follow the directions below to create your [facility] account: 1.Access the email account you provided upon registration to the hospital/physician office.2.Look for an invitation email from [facility].3.Open the email and access the invitation link: Accept Invitation to [facility].4.Fill in the required chase to create your account. To access your account, visit [email or web address]. Click the blue button labeled Access Patient Portal and then log in with the username and password that you created in the steps above. You will be able to view your test results, lab results, a summary of your visits, upcoming appointments and more. There is also a convenient messaging option where you can send secure messages to your provider. In addition, you will have the ability to download any documents or summaries to your computer and/or send the information securely to a physician. Remember that your healthcare information is confidential, so carefully consider who you will allow to register on the [facility] Patient Portal for access to your information. You can also access the [facility] Patient Portal on the [facility] dina. Simply click on Patient Portal and then log into your account. If you would like to receive a full copy of your medical records, please contact the [facility] Medical Records Department by calling [phone], Saturday through Saturday between 8 a.m. and 4:30 p.m. HOW TO SAFELY DISPOSE OF PRESCRIPTION MEDICATIONS Please use one of the following methods to safely dispose of your unused medications. 1.Use a drug disposal kit: the drug disposal pouch allows you to safely discard your old and unused drugs. Ask your nurse to give you one when you are discharged.2.Visit a local take-back location: Many local pharmacies and police departments have programs that collect old and unwanted prescription drugs. Call your local pharmacy or go to http://bit.Tigerspike/9L7Tw4n to find one close to you.3.Make use of household items: Use cat litter or old coffee grounds to dispose medications if other options are not available. Mix your drugs with these household products, seal them in an airtight container and throw it into the garbage. Call [facility]: [phone] to be sure your drugs can be [...] a CHART COPY. Signatures Patient Education Materials Aspiration Pneumonia Medication Leaflets My discharge plan and instructions have been reviewed and explained to me and I,AGUSTO MONSALVE understand my current condition and have read and understand these discharge instructions. I have received a written copy of the plan/instructions. If I have questions, I am aware that I should contact my doctor. Patient/Public Health Specialist Signature: Date/Time: Relationship to Patient: Witness Name/Signature: Date/Time: [facility] 01-01-2025 Procedure note Brief IR Post Procedure Note - Inpatient/Obs Pre Procedure Dx: Cystic abd mass Post Procedure Dx: Same Procedure: 1. CT bx + asp Printing Table Worker: Elias Golf Cart Maker: None Anesthesia: Local, moderate sedation EBL: Minimal Complications:None Status: Stable Findings: 1. Successful aspiration of 40 ml for cx + cytology of cystic mass in lower abd. IV contrast given but no solid components noted. 8x18G cores obtained of the cystic mass wall as no solid lesion inside the mass. Plan: 1. Post sedation VS check 2. Resume diet Full report to follow. Orders in [facility]. Fabby Griffin MD Vascular & Interventional Rad[facility] ([facility]) [facility] Deanna [email or web address] Pager: [phone] [facility] IR Dept (04/02): [id number] [facility]-VIR [phone] [facility]-VIR IR Call Schedule (copy & paste): [email or web address] Digitally Signed by FABBY GRIFFIN MD on 01/01/2025 03:[address] [facility] 01-01-2025 Note IR Procedure Record Summary Primary Physician: FABBY GRIFFIN MD Finalized Date/Time: 01/01/25 14:35:54 Pt. Name: AGUSTO MONSALVE/Sex: 1975 Male Med Rec #: [id number] Physician: EBNNY ALEXANDER DO Financial #: [id number] Pt. Type: I Room/Bed: [facility]/A Admit/Disch: 12/30/24 20:35:00 - Institution: Allergies identified in patient's electronic medical record at time of printing on 01/01/25 Entry 1 Substance NKA Reaction Type Allergy Last Modified By: Jessica Powell RN 07/22/24 02:52:44 Case Attendance- IR Entry 1 Entry 2 Entry 3 Case Attendee ELIASFABBY MD, Delaney R Lee, RN Melanie L Role Performed Primary Surgeon Mine Supervisor Procedure Nurse Details Time In 01/01/25 13:48:00 01/01/25 13:43:00 01/01/25 13:43:00 Time Out 01/01/25 14:22:00 01/01/25 14:34:00 01/01/25 14:34:00 Procedure/Preference IR Biopsy Abdomen (SN) IR Biopsy Abdomen (SN) IR Biopsy Abdomen (SN) Card Last Modified By: MIRIAM Hodge RN Melanie L Lee, RN Melanie L 01/01/25 14:34:44 01/01/25 14:34:44 01/01/25 14:34:44 Radiology Procedures- IR Entry 1 Procedure/Preference IR Biopsy Abdomen (SN) Actual Procedure IR BIOPSY ABDOMEN Card Primary Procedure Yes Primary Surgeon FABBY GRIFFIN MD Anesthesia/Sedation IV Sedation, Local Type Additional Procedure Times Start 01/01/25 13:48:00 Stop 01/01/25 14:22:00 Specialty Service SN Radiology Procedure EBL 3 mL Last Modified By: MIRIAM Hodge 01/01/25 14:34:46 Radiology Procedure Details - IR Entry 1 Radiology Sedation Case Times Sedation Start Time 01/01/25 14:00:00 Sedation Stop Time 01/01/25 14:22:00 Sedation Total Time 22mins Radiology - Fluid/Drainage Radiology Contrast Contrast Used? Yes Dose 80 mL Medication isoveue 300 Radiology Flouroscopy Fluoroscopy Used? Yes Fluoro Dose (mGy) 429.93 Fluoro Time 9secs Radiology Local Local Used? Yes Local Type: lidocaine 2% Local Dose 20cc Radiology Procedure Site Site/Location left abdomen Site Condition No complications Dressing Type Bandaids Last Modified By: MIRIAM Hodge 01/01/25 14:35:15 Cultures and Specimens- IR Entry 1 Kind Specimen Type Mass Source abdomen, lesft side Comments fluid for cultures and 8 corres obtained Last Modified By: MIRIAM Hodge 01/01/25 14:35:38 General Case Data - IR Entry 1 Case Information Room AH IR CT Case Level IR Level 2 Wound Class None Specialty SN Radiology Procedure ASA Class None Diagnosis Preop Diagnosis abdominal mass Postop Same As Preop Yes Postop Diagnosis abdominal mass Last Modified By: MIRIAM Hodge 01/01/25 14:14:42 Medication Administration- IR Entry 1 Entry 2 Entry 3 Medication haldol versed fentanyl Time Administered 01/01/25 14:00:00 01/01/25 14:00:00 01/01/25 14:00:00 Route of Admin IV Push IV Push IV Push Dose 2mg 1mg 25mcg Volume VORB * *Verbal Order Read Back (VORB) is required for NON- PHYSICIAN administration of medications. Administered by No No No Physician? Administered by: MIRIAM Hodge RN Melanie L Lee, RN Melanie L Verbal Order Read FABBY GRIFFIN MD, MITRYAN MD KAR, FABBY TO Back from: Last Modified By: MIRIAM Hodge RN Melanie L Lee, RN Melanie L 01/01/25 14:13:16 01/01/25 14:13:16 01/01/25 14:13:16 Entry 4 Entry 5 Medication versed fentanyl Time Administered 01/01/25 14:06:00 01/01/25 14:06:00 Route of Admin IV Push IV Push Dose 1mg 25mcg Volume VORB * *Verbal Order Read Back (VORB) is required for NON- PHYSICIAN administration of medications. Administered by No No Physician? Administered by: MIRIAM Hodge RN Melanie L Verbal Order Read FABBY GRIFFIN MD, FABBY TO Back from: Last Modified By: MIRIAM Hodge RN Melanie L 01/01/25 14:13:16 01/01/25 14:13:16 Procedure Case Times- IR Entry 1 Patient In Procedure Patient In OR 01/01/25 13:43:00 Patient Out of OR 01/01/25 14:34:00 Procedure Start/Stop Procedure Start Time 01/01/25 13:48:00 Procedure Stop Time 01/01/25 14:22:00 Last Modified By: MIRIAM Hodge 01/01/25 14:34:37 Immediate Post OP Note - IR Entry 1 Immediate Post Yes Findings 40 ml chocolate colored Procedure Note serous fluid sent for displayed for cx + cyto; 8x18G cores Physician to review of cystic mass wall obtained. Closure Technique Closure Technique Other than Primary Last Modified By: MIRIAM Hodge 01/01/25 14:26:22 Immediate Post OP Note - IR Signed By: FABBY GRIFFIN MD 01/01/25 14:25 Allergy Information- IR Entry 1 Allergies Reviewed? Yes Allergies Reviewed Medical Record With Last Modified By: MIRIAM Hodge 01/01/25 14:10:26 Radiology Protocols/Time Out- IR Entry 1 Preprocedure Clinician Verifies Correct patient ID When Clinically Confirmation of correct using name & date Indicated side(s) and site(s), or MRN, Accurate Correct diagnostic and procedure, complete radiology tests Informed Consent, H & P available, Required update immediately blood products, prior to procedure, if implants, devices applicable and/or special equipment available OR/Procedure Room/Bedside Time 01/01/25 13:48:00 Clinician Verifies Correct patient identity including EMR & records using name and date or medical record number, Accurate procedure consent form, Correct patient position, Necessary equipment is available, Anticipated non-routine events with surgical team (case duration, estimated blood loss, patient specific concerns)., Vargas patient factors for recovery and management identified with surgical team. When Applicable Confirmation correct Team Members FABBY GRIFFIN MD, side and site marked, Present for Time Out Marine Grover Lee, Relevant images and MIRIAM Sweeney results are properly labeled and appropriately displayed, Alcohol based prep dry Instrument Sterility Procedure IR Biopsy Abdomen (SN) Last Modified By: MIRIAM Hodge 01/01/25 14:11:33 Skin Prep- IR Entry 1 Procedure IR Biopsy Abdomen (SN) Skin Prep Prep Area Abdomen Side Left By FABBY GRIFFIN MD Prep Agents Chloraprep Hair Removal Method N/A Last Modified By: MIRIAM Hodge 01/01/25 14:13:31 Patient Positioning- IR Entry 1 Procedure IR Biopsy Abdomen (SN) Body Position OP Supine Feet Uncrossed? Yes Pressure Points Yes Checked Last Modified By: MIRIAM Hodge 01/01/25 14:13:38 Radiology Procedure Plan - IR Entry 1 Radiology - Nursing Care Plan Outcome Statement The patient Outcome Statement The patient receives demonstrates knowledge Cont. appropriate of the expected medication(s), safely responses to the administered during the operative/invasive perioperative/invasive procedure., The period., The patient is patient's value system, free from signs and lifestyle, ethnicity, symptoms of injury and culture are caused by extraneous considered, respected, objects (equipment, and incorporated in the instrumentation, perioperative plan of sponges, or sharps). care., The patient is free from signs and symptoms of infection., The patient is free from signs and symptoms of injury related to positioning. Radiology - Action Plan Outcomes Met? Yes Hydramatic Specialist MIRIAM Hodge Completing Procedure Plan Last Modified By: MIRIAM Hodge 01/01/25 14:14:29 Case Comments Finalized By: MIRIAM Hodge Document Signatures Signed By: MIRIAM Hodge 01/01/25 14:[address] [facility] 01-01-2025 Note Discharge Instructions Thank you for allowing [facility] to assist you with your healthcare needs. The following is important discharge information regarding your hospital visit. Your Care Team DANTE VANG APRN-MICHAEL What to do next Instructions From Your Doctor You will need close follow up with your PCP for mesenteric abdominal biopsy results Please reach out to Oncology department for follow up if you do not hear from anyone regarding biopsy results Scheduled Follow-Up Appointments Appointment Type When Where Contact Information StatusCT Abdomen w/o Contrast 01/05/2025 10:00 AM EDT [facility] [phone] Confirmed Follow Up Appointments Follow Up with Patient is discharged to [facility] LOC. Please call report to [phone]. When:Within 1-2 days Follow Up with ZAHIDA JANE When:Within 1-2 days Where:[facility] [address] [place] [address]- [phone] Business (1) Follow Up with GENIE NIÑO When:Within 1-2 days Where:[address] [facility] [place] [address]- [phone] Business (1) Follow Up with DANTE VANG When:Within 1-2 days Where:[address] [facility] [place] [address]- [phone] Business (1) The Following Activity and Diet Have Been Ordered for You Transfer of Care Activity - Ordered -- Activity As Tolerated, 01/01/25 12:21:00 EDT Transfer of Care Diet - Ordered -- Type of Diet: Regular Diet, 01/01/25 12:21:00 EDT The Following Equipment Has Been Ordered for You No qualifying data available. The Following Treatments Have Been Ordered for You Discharge Labs No qualifying data available. Discharge Radiology No qualifying data available. Other Therapies No qualifying data available. Post Acute Orders Transfer of Care Admission Level of Care - Ordered -- Level of Care SNF, 01/01/25 12:21:53 EDT Transfer of Care Code Status - Ordered -- Full Code, Constant Order Transfer of Care Orders Electronically Signed By - Ordered -- 01/01/25 12:21:00 EDT, FLO SCHUMACHER DO Transfer of Care Prognosis - Ordered -- Syeda, Patient Aware: Yes Transfer of Care Rehab Potential - Ordered -- Rehab potential fair, 01/01/25 12:21:53 EDT Someone Will Contact You Regarding These Home Health Referrals No home referrals have been ordered for you. No one will call you. Allergies NKA Medications Please ask your primary doctor or pharmacist before taking any other medication not listed, including over the counter drugs, herbal medications, vitamins and or supplements as they may interact with your home medications. What How Much When Instructions Last Dose New cefdinir (cefdinir 300 mg oral capsule) 1 cap by mouth Every 12 hours Duration: 6 Days Changed atorvastatin (atorvastatin 40 mg oral tablet) 1 tab(s) by mouth Every day Unchanged amLODIPine (amLODIPine 5 mg oral tablet) See instructions 1 tab(s) Oral qDay Unchanged aspirin (aspirin 81 mg oral delayed release tablet) 1 tab(s) by mouth Every day Unchanged ciclopirox topical (Ciclodan 8% topical solution) 1 application Topical Every day Unchanged cyclobenzaprine (cyclobenzaprine 10 mg [...] Once a day (in the morning) Unchanged fluticasone-salmeterol (Advair Diskus 250 mcg-50 mcg inhalation powder) 1 puff(s) by inhalation Two (2) times a day Unchanged gabapentin (gabapentin 300 mg oral capsule) 1 cap Once a day Unchanged lidocaine topical (lidocaine 4% patch) 1 patch(es) Topical Once a day as needed for Pain lower back Unchanged lidocaine topical (lidocaine 4% topical gel) 1 pump(s) Topical Once a day as needed for as needed for pain not to exceed 12 pumps/ day Unchanged loperamide (loperamide 2 mg oral capsule) 1 cap by mouth Every 4 hours as needed for Diarrhea Unchanged magnesium oxide (magnesium oxide 400 mg oral tablet) 1 tab(s) by mouth Three (3) times a day Unchanged melatonin (Melatonin 5 mg oral tablet) 1 tab(s) by mouth Daily at bedtime as needed for as needed for insomnia Unchanged metoprolol (metoprolol succinate 50 mg oral TABLET extended release) 1 tab(s) by mouth Once a day Do not crush or chew (controlled release) Unchanged midodrine (midodrine 5 mg oral tablet) See instructions 1 tab(s) Oral TID Unchanged mupirocin topical (mupirocin 2% topical cream) 1 application Topical Once a day Unchanged nystatin topical (Mycostatin 100,000 units/ g topical ointment) 1 application Topical Four (4) times a day Unchanged ondansetron (ondansetron 4 mg oral tablet) 2 tab(s) by mouth Saturday / Saturday / Saturday Before dialysis Unchanged pantoprazole (pantoprazole 40 mg oral enteric coated tablet) 1 tab(s) by mouth Two (2) times a day Unchanged polyethylene glycol 3350 (MiraLax oral powder for reconstitution) 17 gram(s) by mouth Saturday / Saturday / Saturday Unchanged sodium chloride nasal (sodium chloride nasal [...] to receive it can visit one of [facility] vaccine clinics. There are many vaccine clinic locations within the [facility]. For locations and available times, please visit [email or web address].o hio.gov/. It is important to note that some COVID mobile vaccine clinics are held outdoors and may be canceled in rainy or stormy conditions. To learn more about pediatric vaccinations (ages 5-11), we invite you to visit the [facility] webpage. [email or web address] [email or web address]/p [email or web address] To learn more about the COVID-19 vaccine, we invite you to visit the CDC website for a list of frequently asked questions.https://www.cdc.gov/co ronavirus/2019-ncov/vaccines/faq .html [facility] Patient Portal Access Instructions: Stay connected with your healthcare team and access your personal medical information anytime with the [facility] Patient Portal. Please follow the directions below to create your [facility] account: 1.Access the email account you provided upon registration to the hospital/physician office.2.Look for an invitation email from [facility].3.Open the email and access the invitation link: Accept Invitation to [facility].4.Fill in the required chase to create your account. To access your account, visit [email or web address]. Click the blue button labeled Access Patient Portal and then log in with the username and password that you created in the steps above. You will be able to view your test results, lab results, a summary of your visits, upcoming appointments and more. There is also a convenient messaging option where you can send secure messages to your provider. In addition, you will have the ability to download any documents or summaries to your computer and/or send the information securely to a physician. Remember that your healthcare information is confidential, so carefully consider who you will allow to register on the [facility] Patient Portal for access to your information. You can also access the [facility] Patient Portal on the [employer] dina. Simply click on Patient Portal and then log into your account. If you would like to receive a full copy of your medical records, please contact the [facility] Medical Records Department by calling [phone], Saturday through Saturday between 8 a.m. and 4:30 p.m. HOW TO SAFELY DISPOSE OF PRESCRIPTION MEDICATIONS Please use one of the following methods to safely dispose of your unused medications. 1.Use a drug disposal kit: the drug disposal pouch allows you to safely discard your old and unused drugs. Ask your nurse to give you one when you are discharged.2.Visit a local take-back location: Many local pharmacies and police departments have programs that collect old and unwanted prescription drugs. Call your local pharmacy or go to http://GLADvertising.com.Tigerspike/3Q4Ew2k to find one close to you.3.Make use of household items: Use cat litter or old coffee grounds to dispose medications if other options are not available. Mix your drugs with these household products, seal them in an airtight container and throw it into the garbage. Call [facility]: [phone] to be sure your drugs can be [...] been reviewed and explained to me and IGRICEL SCOTT understand my current condition and have read and understand these discharge instructions. I have received a written copy of the plan/instructions. If I have questions, I am aware that I should contact my doctor. Patient/Public Health Specialist Signature: Date/Time: Relationship to Patient: Witness Name/Signature: Date/Time: [facility] 01-01-2025 Palliative care Progress note 1015- This nurse was asked by Harshal Lucas NP to meet with patient to educate and complete a HCPOA. Pt has named Sibling Hailey Cowart , as the primary and only agent. He initialed the Living will declaration statement that precludes the need for formal LW. Medical records to notarize document and upload into the EMR. Hailey updated and request copy be mailed to her. Will send. Pt also request she have a copy mailed to her as he sometimes ends up at other hospitals. Chart also updated with Hailey name, phone number and role. Digitally Signed by Fany Szymanski RN on 01/01/2025 01:[address] [facility] 01-01-2025 Discharge summary Date of Service 01/01/25 Discharge Diagnosis Multifocal pneumonia Otitis media Leukocytosis Concern for mesenteric abdominal mass ESRD on HD MWF Hyperkalemia Hyponatremia Chronic anemia T2DM Other history HTN, HLD, CAD s/p CABG, GERD, obesity Hospital Course 49-year-old male with past medical history of end-stage renal disease on hemodialysis Saturday, hypertension, hyperlipidemia, CAD status post CABG, type 2 diabetes mellitus, BPH, GERD, obesity, anemia, resides at [facility]. Patient presented from [facility] to [facility] on 12/30/2024 for shortness of breath and abdominal pain. 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 He was found to have leukocytosis of 19. Patient was afebrile, tachycardic, on room air. Transferred to [facility] for further management. Lab work at [facility] showed leukocytosis of 16.1, hemoglobin 9.8, glucose 139, sodium 128, potassium 5.2, BUN 46, creatinine 5.02. Lactic acid was 0.7. Troponin was negative. MRSA PCR negative. Patient was afebrile, tachycardic at 111, blood pressure 124/86, on room air. Patient was started on broad spectrum antibiotics for multifocal pneumonia. His oxygen remained stable on room air. He was transitioned to cefdinir and will complete a total of 7 days of antibiotic therapy. The patient was treated with left ear drops for otitis media, he was recommended to follow up with ENT at discharge. Patient underwent IR guided abdominal/mesenteric biopsy on 01/01/2025. Patient will need close follow-up with either his PCP or oncology regarding biopsy results. This was also discussed with patient's POA/sister Mimi. Additionally, nephrology followed for dialysis management, patient underwent dialysis x 2 during his hospital stay. He will continue on his usual schedule at discharge. The patient is stable for discharge back to his nursing facility today. Updated sister over phone. Case discussed with Dr. Schumacher. Allergies NKA Consults Consult to Palliative Care - Ordered -- 12/31/24 14:16:00 EDT, advance directives, MD LUIS CARLOS. SANTANA Barnes, positive palliative screen Consult to Physician (Physician Consult) - Ordered -- 12/30/24 21:44:00 EDT, TRAMAINE BOURNE DO, Routine, ESRD HD Consult to Skin Team Nurse - Ordered -- 12/31/24 21:00:00 EDT, Impaired skin integrity, outer L thigh, had skin cancer removed month ago states it has bveen getting infected at [place] Physical Exam Vitals and Measurements T: 36.8 C (Oral) TMIN: 36.4 C (Oral) TMAX: 37 C (Oral) HR: 68 (Apical) RR: 16 BP: 116/78 SpO2: 93% WT: 106.7 kg Weight Dosing Weight: 106.7 kg (12/31/24) Dosing Weight: 108.4 kg (12/31/24) General: No acute distress. Alert and Appropriate Skin: No rash. Warm, Dry HEENT: Head is normocephalic and atraumatic. No lesions. Pupils equal in size. Extraocular movements within normal limits. Nose: No septal deviation. Mouth: Oropharynx mucosa is without lesion. Neck: Supple. Lungs: Bilaterally diminished breath sounds with no crepitation or wheeze. Unlabored on room air Cardiovascular: Heart is regular rhythm, S1S2, No extra-audible heart tones Abdomen: Abdomen is soft, nontender. Rounded. Bowel sounds positive all four quadrants. Extremities: No clubbing, cyanosis. Peripheral pulses palpable. No calf tenderness. Adequate peripheral circulation. Neurological: The patient is awake, oriented to time, people and place. Following simple commands, moving all extremities. Code Status Code Status - Ordered -- 12/30/24 21:44:00 EDT, Full Code, Constant Order Admission Date 12/30/24 Discharge Date 01/01/25 Patient Instructions You will need close follow up with your PCP for mesenteric abdominal biopsy results Please reach out to Oncology department for follow up if you do not hear from anyone regarding biopsy results Medications New Prescription cefdinir (cefdinir 300 mg oral capsule)1 cap by mouth every 12 hours for 6 Days. Refills: 0. Changed atorvastatin (atorvastatin 40 mg oral tablet)1 tab(s) by mouth every day. Unchanged amLODIPine (amLODIPine 5 mg oral tablet)1 tab(s) Oral qDay. aspirin (aspirin 81 mg oral delayed release tablet)1 tab(s) by mouth every day. ciclopirox topical (Ciclodan 8% topical solution)1 application Topical every day. cyclobenzaprine (cyclobenzaprine 10 mg oral tablet)1 tab(s) by mouth daily at bedtime. diphenhydrAMINE (diphenhydrAMINE 25 mg oral tablet)1 tab(s) by mouth daily at bedtime as needed as needed for itching. For itching not insomnia. famotidine (famotidine 40 mg oral tablet)1 tab(s) by mouth daily at bedtime. fluticasone nasal (fluticasone proprionate NASAL 50 mcg/ spray)1 spray(s) each nostril once a day (in the morning). fluticasone-salmeterol (Advair Diskus 250 mcg-50 mcg inhalation powder)1 puff(s) by inhalation two (2) times a day. gabapentin (gabapentin 300 mg oral capsule)1 cap once a day. lidocaine topical (lidocaine 4% patch)1 patch(es) Topical once a day as needed Pain. lower back. lidocaine topical (lidocaine 4% topical gel)1 pump(s) Topical once a day as needed as needed for pain. not to exceed 12 pumps/day. loperamide (loperamide 2 mg oral capsule)1 cap by mouth every 4 hours as needed Diarrhea. magnesium oxide (magnesium oxide 400 mg oral tablet)1 tab(s) by mouth three (3) times a day. melatonin (Melatonin 5 mg oral tablet)1 tab(s) by mouth daily at bedtime as needed as needed for insomnia. metoprolol (metoprolol succinate 50 mg oral TABLET extended release)1 tab(s) by mouth once a day. Do not crush or chew (controlled release). midodrine (midodrine 5 mg oral tablet)1 tab(s) Oral TID. mupirocin topical (mupirocin 2% topical cream)1 application Topical once a day. nystatin topical (Mycostatin 100,000 units/g topical ointment)1 application Topical four (4) times a day. ondansetron (ondansetron 4 mg oral tablet)2 tab(s) by mouth Saturday / Saturday / Saturday. Before dialysis. pantoprazole (pantoprazole 40 mg oral enteric coated tablet)1 tab(s) by mouth two (2) times a day. polyethylene glycol 3350 (MiraLax oral powder for reconstitution)17 gram(s) by mouth Saturday / Saturday / Saturday. sodium chloride nasal (sodium chloride nasal spray)1 spray(s) each nostril As Directed as needed dry nasal passage. tamsulosin (tamsulosin 0.4 mg oral capsule)1 cap by mouth once a day. Follow Up Follow Up with ZAHIDA JANE When:Within 1-2 days Where:[facility] [address] [place] [address]- [phone] Business (1) Follow Up with GENIE NIÑO When:Within 1-2 days Where:[address] [place] [address] Hematology [place] [address]- [phone] Business (1) Follow Up with DANTE VANG When:Within 1-2 days Where:[address] [facility] [place] [address]- [phone] Business (1) Discharge Diet Transfer of Care Diet - Ordered -- Type of Diet: Regular Diet, 01/01/25 12:21:00 EDT Discharge Activity Transfer of Care Activity - Ordered -- Activity As Tolerated, 01/01/25 12:21:00 EDT Condition on Discharge Stable Discharge Disposition SNF Information Provided To Patient Sister Hailey Time Spent 32 minutes Digitally Signed by RILEY PIERRE on 01/01/2025 12:24 PM Digitally Signed by RILEY PIERRE on 01/01/2025 01:[address] [facility] 01-01-2025 Nephrology Progress note Date of Service 01/01/2025 Chief Complaint Cough with shortness of breath. Subjective Patient is laying in bed. He is getting started on dialysis. He had dialysis yesterday as he missed on Saturday. He continues to have some cough and shortness of breath. Denies any chest pain, nausea, abdominal pain. Objective Vitals and Measurements T: 36.8 C (Oral) TMIN: 36.4 C (Oral) TMAX: 37 C (Oral) HR: 68 (Apical) RR: 16 BP: 116/78 SpO2: 93% WT: 106.7 kg Physical Exam HEENT: PEERLA, no pallor Respiratory: Bilateral air entry is present, decreased at bases with occasional rhonchi present Cardiovascular: S1-S2 present, no rub Abdomen: Obese, soft, NT, BS present Extremities: Bilateral AKA noted, left upper arm AV graft present Medications Medications (21) Active Scheduled: (16) aspirin 81 mg EC 81 mg 1 tab(s), Oral, Daily atorvastatin 40 mg tablet 40 mg 1 tab(s), Oral, Daily cefTRIAXone IVP syringe 2 gram(s) 20 mL, IV Push (INT), qDay epoetin jannie epbx 2000 units/mL (pf) vial 2,000 unit(s) 1 mL, IV Push, prep pharm epoetin jannie epbx 3000 units/mL (pf) vial 3,000 unit(s) 1 mL, IV Push, prep pharm famotidine 20 mg tablet 20 mg 1 tab(s), Oral, qHS gabapentin 300 mg Capsule 300 mg 1 cap(s), Oral, qDay heparin 5,000 units/5mL DIALYSIS syringe 5,000 unit(s) 5 mL, IV Push, prep pharm heparin 5,000 units/mL (1 mL) vial 5,000 unit(s) 1 mL, Subcutaneous, q8h hydrocortisone/neomycin/polymyxi n B OTIC SOLUTION 1%-0.35%-64378 u/mL 4 drop(s), Ear, left, QID insulin lispro 100 units/mL Soln (3 mL) Give 0-10 units/dose, Subcutaneous, TIDAC metoprolol succinate 50 mg ER tablet 50 mg 1 tab(s), Oral, qDay midodrine 5 mg tablet 5 mg 1 tab(s), Oral, Mon/Wed/Fri pantoprazole 40 mg EC tablet 40 mg 1 tab(s), Oral, BID polyethylene glycol 3350 - UD packet 17 gram(s) 15 mL, Oral, Mon/Wed/Fri tamsulosin 0.4 mg Capsule 0.4 mg 1 cap(s), Oral, qDay Continuous: (0) PRN: (5) acetaminophen 325 mg Tablet 650 mg 2 tab(s), Oral, q4h albuterol - ipratropium 2.5 mg-0.5 mg/3 mL Inhal Elva UD 3 mL, Inhalation, q4hRT dextrose 50% Solution Disp syringe 50 mL 25 gram(s) 50 mL, IV Push, AsDirected HYDROmorphone 0.5 mg/0.5 mL syringe 0.25 mg 0.25 mL, IV Push, q3h ondansetron 2 mg/ 1 mL 2 mL INJ 4 mg 2 mL, IV Push, q4h Lab Results 01/01 04:01 Protime: 11.4 PT International Ratio: 1.0 Glucose Level: 74 Sodium Level: 136 Potassium Level: 4.8 BUN: 23.0 H Creatinine Lvl (s): 3.44 H CO2: 21 Calcium: 9.1 12/31 05:47 WBC: 14.6 H Hgb: 9.8 L Hct: 29.6 L Platelet: 220 Neutrophil %: 87.2 H Glucose Level: 92 Sodium Level: 128 L Potassium Level: 5.6 H BUN: 47.0 H Creatinine Lvl (s): 5.30 H 12/30 22:23 WBC: 16.1 H Hgb: 9.8 L Hct: 29.9 L Platelet: 217 Neutrophil %: 90.8 H Glucose Level: 139 H Sodium Level: 128 L Potassium Level: 5.2 H BUN: 46.0 H Creatinine Lvl (s): 5.02 H Assessment/Plan ESRD on HD on MWF: Dialysis today Hyperkalemia: Resolved Multifocal pneumonia: On antibiotics Metabolic acidosis: Will resolve with dialysis Chronic hypotension: Midodrine before dialysis Anemia due to ESRD: Retacrit with dialysis Possible mesenteric abdominal mass: Plan for IR guided biopsy today Continue with current management. Agree with antibiotics. Discharge per hospitalist. Discussed with patient. Will follow. Digitally Signed by LUCIUS ANDREWS MD on 01/01/2025 09:[address] [facility] 01-01-2025 Palliative care Consult note Date of Service 01/01/[address] Randal Tucker Reason for Consult Positive palliative care screen Participants in Discussion Patient History of Present Illness Information obtained through chart review as well as speaking with the patient. Mr. Monsalve is a 49 year old male former smoker past medical history significant for ESRD on HD, CAD s/p CABG, HTN, anemia secondary CKD, DM, HLD. He was admitted to the hospital on December 30, 2024 for an abdominal mass. Patient residing at a facility, and was complaining of increased shortness of breath on exertion. He was seen at [facility]. 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 He was then transferred to our hospital for further workup. Patient scheduled to have a biopsy done today. He is also scheduled to have dialysis. Review of Systems As in HPI all other systems reviewed and are negative. Physical Exam Vitals and Measurements T: 36.8 C (Oral) TMIN: 36.4 C (Oral) TMAX: 37 C (Oral) HR: 68 (Apical) RR: 16 BP: 116/78 SpO2: 93% WT: 106.7 kg Weight Dosing Weight: 106.7 kg (12/31/24) Dosing Weight: 108.4 kg (12/31/24) GENERAL: The patient is pleasant, cooperative. No acute distress. SKIN: No skin rashes or lesions are noted. No cyanosis, clubbing. HEENT: Head is normocephalic and atraumatic. The neck is supple with a full range of motion. Cardiovascular: Regular rate and rhythm. S1S2. No murmur. No edema. Respiratory: Clear to auscultation. Unlabored. GI: Soft round and nontender. BSx4. Neurological: Alert and oriented x3. No neurological deficits noted. Musculoskeletal: No muscle wasting. Weakness. No gross deformity. Psych: No agitation noted. Lab Results 01/01 04:01 Protime: 11.4 PT International Ratio: 1.0 Glucose Level: 74 Sodium Level: 136 Potassium Level: 4.8 BUN: 23.0 H Creatinine Lvl (s): 3.44 H 12/31 05:47 WBC: 14.6 H Hgb: 9.8 L Hct: 29.6 L Platelet: 220 Neutrophil %: 87.2 H Glucose Level: 92 Sodium Level: 128 L Potassium Level: 5.6 H BUN: 47.0 H Creatinine Lvl (s): 5.30 H 12/30 22:23 WBC: 16.1 H Hgb: 9.8 L Hct: 29.9 L Platelet: 217 Neutrophil %: 90.8 H Glucose Level: 139 H Sodium Level: 128 L Potassium Level: 5.2 H BUN: 46.0 H Creatinine Lvl (s): 5.02 H Palliative Assessment and Recommendations Palliative care encounter for a 49-year-old male former smoker past medical history significant for end-stage renal disease on hemodialysis, coronary artery disease status post CABG, hypertension, anemia secondary to chronic kidney disease, diabetes, and hyperlipidemia. Admitted to the hospital for an abdominal mass, CT scan of the patient's abdomen and pelvis at an outside hospital revealed multifocal pneumonia, and a heterogenous cystic central mesenteric lesion measuring 17 x 22 x 19.3 cm that looks neoplastic. Patient to undergo biopsy today. Palliative care was consulted as a positive palliative care screen. Goals of care wishes to continue moving forward with oncological work up. CODE STATUS discussed code status options with patient and risk vs benefit. He wishes to remain a full code. Advanced directives would like to complete HCPOA as he is and has 6 kids, but would want his sister Katia to be his HCPOA. Mesenteric mass lesion measuring 17 x 22 x 19.3 cm found on a CT scan of the abdomen pelvis that looks neoplastic. Patient undergo biopsy today. End-stage renal disease on hemodialysis, scheduled to have dialysis today. Nephrology is following. Labs, diagnostics, hospitalist note, nephrology note all reviewed. Thank you very much for this consult. Procedure/Surgical History Fistula Amputation above-knee CABG - Coronary artery bypass graft Hernia repair Medications Inpatient aspirin 81 mg oral delayed release tablet, 81 mg= 1 tab(s), Oral, Daily atorvastatin, 40 mg= 1 tab(s), Oral, Daily Dextrose 50% IV Push, 25 gram(s)= 50 mL, IV Push, AsDirected, PRN Dilaudid, 0.25 mg= 0.25 mL, IV Push, q3h, PRN DuoNeb, 3 mL, Inhalation, q4hRT, PRN epoetin alpha (Retacrit / Procrit) 2,000 unit(s)/mL (DIALYSIS), 2000 unit(s)= 1 mL, IV Push, prep pharm epoetin alpha (Retacrit / Procrit) 3,000 unit(s)/mL (DIALYSIS), 3000 unit(s)= 1 mL, IV Push, prep pharm famotidine, 20 mg= 1 tab(s), Oral, qHS gabapentin, 300 mg= 1 cap(s), Oral, qDay heparin 5000 units/mL injection, 5000 unit(s)= 1 mL, Subcutaneous, q8h heparin syringe (DIALYSIS), 5000 unit(s)= 5 mL, IV Push, prep pharm HumaLOG 100 units/mL subcutaneous solution, Give 0-10 units/dose, Subcutaneous, TIDAC hydrocortisone/neomycin/polymyxi n B 1%-0.35%-10,000 units/mL otic solution, 4 drop(s), Ear, left, QID metoprolol succinate 50 mg oral TABLET extended release, 50 mg= 1 tab(s), Oral, qDay midodrine, 5 mg= 1 tab(s), Oral, Mon/Wed/Fri Miralax Powder Packet, 17 gram(s)= 15 mL, Oral, Mon/Wed/Fri pantoprazole, 40 mg= 1 tab(s), Oral, BID Rocephin, 2 gram(s)= 20 mL, IV Push (INT), qDay tamsulosin, 0.4 mg= 1 cap(s), Oral, qDay Tylenol, 650 mg= 2 tab(s), Oral, q4h, PRN Zofran, 4 mg= 2 mL, IV Push, q4h, PRN Home Advair Diskus 250 mcg-50 mcg inhalation powder, 1 puff(s), Inhalation, BID amLODIPine 5 mg oral tablet, See Instructions aspirin 81 mg oral delayed release tablet, 81 mg= 1 tab(s), Oral, Daily atorvastatin 40 mg oral tablet, 40 mg= 1 tab(s), Oral, Daily atorvastatin 40 mg oral tablet, 40 mg= 1 tab(s), Oral, Daily Ciclodan 8% topical solution, 1 dina, Topical, Daily cyclobenzaprine 10 mg oral tablet, 10 mg= 1 tab(s), Oral, qHS diphenhydrAMINE 25 mg oral tablet, 25 mg= 1 tab(s), Oral, qHS, PRN famotidine 40 mg oral tablet, 40 mg= 1 tab(s), Oral, qHS fluticasone proprionate NASAL 50 mcg/ spray, 50 mcg= 1 spray(s), Nostril, each, qAM gabapentin 300 mg oral capsule, 300 mg= 1 cap(s), qDay lidocaine 4% patch, 1 patch(es), Topical, qDay, PRN lidocaine 4% topical gel, 1 pump(s), Topical, qDay, PRN loperamide 2 mg oral capsule, 2 mg= 1 cap(s), Oral, q4h, PRN magnesium oxide 400 mg oral tablet, 400 mg= 1 tab(s), Oral, TID Melatonin 5 mg oral tablet, 5 mg= 1 tab(s), Oral, qHS, PRN metoprolol succinate 50 mg oral TABLET extended release, 50 mg= 1 tab(s), Oral, qDay midodrine 5 mg oral tablet, See Instructions MiraLax oral powder for reconstitution, 17 gram(s), Oral, Mon/Wed/Fri mupirocin 2% topical cream, 1 dina, Topical, qDay Mycostatin 100,000 units/g topical ointment, 1 dina, Topical, QID ondansetron 4 mg oral tablet, 8 mg= 2 tab(s), Oral, Mon/Wed/Fri pantoprazole 40 mg oral enteric coated tablet, 40 mg= 1 tab(s), Oral, BID sodium chloride nasal spray, 1 spray(s), Nostril, each, AsDirected, PRN tamsulosin 0.4 mg oral capsule, 0.4 mg= 1 cap(s), Oral, qDay Allergies NKA Social History Tobacco Nicotine Use: Former smoker, quit more than 30 days ago. Smokeless Tobacco Use: Smokeless tobacco user within last 30 days., 07/22/2024 Code Status Code Status - Ordered -- 12/30/24 21:44:00 EDT, Full Code, Constant Order Digitally Signed by HARSHAL LUCAS on 01/01/2025 09:[address] [facility] 01-01-2025 Nephrology Progress note Date of Service 01/01/2025 Chief Complaint Cough with shortness of breath. Subjective Patient is laying in bed. He is getting started on dialysis. He had dialysis yesterday as he missed on Saturday. He continues to have some cough and shortness of breath. Denies any chest pain, nausea, abdominal pain. Objective Vitals and Measurements T: 36.8 C (Oral) TMIN: 36.4 C (Oral) TMAX: 37 C (Oral) HR: 68 (Apical) RR: 16 BP: 116/78 SpO2: 93% WT: 106.7 kg Physical Exam HEENT: PEERLA, no pallor Respiratory: Bilateral air entry is present, decreased at bases with occasional rhonchi present Cardiovascular: S1-S2 present, no rub Abdomen: Obese, soft, NT, BS present Extremities: Bilateral AKA noted, left upper arm AV graft present Medications Medications (21) Active Scheduled: (16) aspirin 81 mg EC 81 mg 1 tab(s), Oral, Daily atorvastatin 40 mg tablet 40 mg 1 tab(s), Oral, Daily cefTRIAXone IVP syringe 2 gram(s) 20 mL, IV Push (INT), qDay epoetin jannie epbx 2000 units/mL (pf) vial 2,000 unit(s) 1 mL, IV Push, prep pharm epoetin jannie epbx 3000 units/mL (pf) vial 3,000 unit(s) 1 mL, IV Push, prep pharm famotidine 20 mg tablet 20 mg 1 tab(s), Oral, qHS gabapentin 300 mg Capsule 300 mg 1 cap(s), Oral, qDay heparin 5,000 units/5mL DIALYSIS syringe 5,000 unit(s) 5 mL, IV Push, prep pharm heparin 5,000 units/mL (1 mL) vial 5,000 unit(s) 1 mL, Subcutaneous, q8h hydrocortisone/neomycin/polymyxi n B OTIC SOLUTION 1%-0.35%-71601 u/mL 4 drop(s), Ear, left, QID insulin lispro 100 units/mL Soln (3 mL) Give 0-10 units/dose, Subcutaneous, TIDAC metoprolol succinate 50 mg ER tablet 50 mg 1 tab(s), Oral, qDay midodrine 5 mg tablet 5 mg 1 tab(s), Oral, Mon/Sat/Fri pantoprazole 40 mg EC tablet 40 mg 1 tab(s), Oral, BID polyethylene glycol 3350 - UD packet 17 gram(s) 15 mL, Oral, Mon/Wed/Fri tamsulosin 0.4 mg Capsule 0.4 mg 1 cap(s), Oral, qDay Continuous: (0) PRN: (5) acetaminophen 325 mg Tablet 650 mg 2 tab(s), Oral, q4h albuterol - ipratropium 2.5 mg-0.5 mg/3 mL Inhal Elva UD 3 mL, Inhalation, q4hRT dextrose 50% Solution Disp syringe 50 mL 25 gram(s) 50 mL, IV Push, AsDirected HYDROmorphone 0.5 mg/0.5 mL syringe 0.25 mg 0.25 mL, IV Push, q3h ondansetron 2 mg/ 1 mL 2 mL INJ 4 mg 2 mL, IV Push, q4h Lab Results 01/01 04:01 Protime: 11.4 PT International Ratio: 1.0 Glucose Level: 74 Sodium Level: 136 Potassium Level: 4.8 BUN: 23.0 H Creatinine Lvl (s): 3.44 H CO2: 21 Calcium: 9.1 12/31 05:47 WBC: 14.6 H Hgb: 9.8 L Hct: 29.6 L Platelet: 220 Neutrophil %: 87.2 H Glucose Level: 92 Sodium Level: 128 L Potassium Level: 5.6 H BUN: 47.0 H Creatinine Lvl (s): 5.30 H 12/30 22:23 WBC: 16.1 H Hgb: 9.8 L Hct: 29.9 L Platelet: 217 Neutrophil %: 90.8 H Glucose Level: 139 H Sodium Level: 128 L Potassium Level: 5.2 H BUN: 46.0 H Creatinine Lvl (s): 5.02 H Assessment/Plan ESRD on HD on MWF: Dialysis today Hyperkalemia: Resolved Multifocal pneumonia: On antibiotics Metabolic acidosis: Will resolve with dialysis Chronic hypotension: Midodrine before dialysis Anemia due to ESRD: Retacrit with dialysis Possible mesenteric abdominal mass: Plan for IR guided biopsy today Continue with current management. Agree with antibiotics. Discharge per hospitalist. Discussed with patient. Will follow. Digitally Signed by LUCIUS ANDREWS MD on 01/01/2025 09:[address] [facility] 12-31-2024 Note Date of Service 12/31/24 Chief Complaint PNA, abdominal mass Subjective 49-year-old male with past medical history of end-stage renal disease on hemodialysis Saturday, hypertension, hyperlipidemia, CAD status post CABG, type 2 diabetes mellitus, BPH, GERD, obesity, anemia, resides at [facility]. Patient presented from [facility] to [facility] on 12/30/2024 for shortness of breath and abdominal pain. 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 He was found to have leukocytosis of 19. Patient was afebrile, tachycardic, on room air. Transferred to [facility] for further management. Lab work at [facility] showed leukocytosis of 16.1, hemoglobin 9.8, glucose 139, sodium 128, potassium 5.2, BUN 46, creatinine 5.02. Lactic acid was 0.7. Troponin was negative. MRSA PCR negative. Patient was afebrile, tachycardic at 111, blood pressure 124/86, on room air. Patient was started on broad spectrum antibiotics for multifocal pneumonia. Nephrology following for end-stage renal disease. IR guided biopsy of mesenteric mass is pending. Patient seen today after dialysis. Sister and family were bedside. Patient states his breathing feels a bit improved after dialysis. He denied CP or abdominal pain. No N/V. He states he is eating and drinking without issues. Objective Vitals and Measurements T: 36.4 C (Skin) TMIN: 36.4 C (Skin) TMAX: 36.9 C (Oral) HR: 108 (Apical) RR: 18 BP: 93/59 SpO2: 91% HT: 149 cm WT: 106.7 kg BMI: 50.36 Intake and Output 7AM Yesterday to 7AM Today Intake and Output (Last 24 hours) Intake Oral Intake 400.00 Output Urine Voided 300.00 Hemodialysis 1000.00 Stool Count 0.00 Emesis Count 0.00 Total Summary Total Intake 400.00 Total Output 1300.00 Fluid Balance -900.00 Physical Exam Physical Exam General: No acute distress. Alert and Appropriate Skin: No rash. Warm, Dry HEENT: Head is normocephalic and atraumatic. No lesions. Pupils equal in size. Extraocular movements within normal limits. Nose: No septal deviation. Mouth: Oropharynx mucosa is without lesion. Neck: Supple. Lungs: Bilaterally diminished breath sounds with no crepitation or wheeze. Unlabored on room air Cardiovascular: Heart is regular rhythm, S1S2, No extra-audible heart tones Abdomen: Abdomen is soft, nontender. Rounded. Bowel sounds positive all four quadrants. Extremities: No clubbing, cyanosis. Peripheral pulses palpable. No calf tenderness. Adequate peripheral circulation. Neurological: The patient is awake, oriented to time, people and place. Following simple commands, moving all extremities. Weight Dosing Weight: 106.7 kg (12/31/24) Dosing Weight: 108.4 kg (12/31/24) Medications Medications (19) Active Scheduled: (14) aspirin 81 mg EC 81 mg 1 tab(s), Oral, Daily atorvastatin 40 mg tablet 40 mg 1 tab(s), Oral, Daily famotidine 20 mg tablet 20 mg 1 tab(s), Oral, qHS gabapentin 300 mg Capsule 300 mg 1 cap(s), Oral, qDay heparin 5,000 units/mL (1 mL) vial 5,000 unit(s) 1 mL, Subcutaneous, q8h hydrocortisone/neomycin/polymyxi n B OTIC SOLUTION 1%-0.35%-98578 u/mL 4 drop(s), Ear, left, QID insulin lispro 100 units/mL Soln (3 mL) Give 0-10 units/dose, Subcutaneous, TIDAC metoprolol succinate 50 mg ER tablet 50 mg 1 tab(s), Oral, qDay midodrine 5 mg tablet 5 mg 1 tab(s), Oral, Mon/Sat/Fri pantoprazole 40 mg EC tablet 40 mg 1 tab(s), Oral, BID Pharmacy Consult 1 EA, Miscellaneous, Daily piperacillin-tazobactam PMX 3.375 gram(s) 70 mL, IV Piggyback, q12hr polyethylene glycol 3350 - UD packet 17 gram(s) 15 mL, Oral, Mon/Sat/Fri tamsulosin 0.4 mg Capsule 0.4 mg 1 cap(s), Oral, qDay Continuous: (0) PRN: (5) acetaminophen 325 mg Tablet 650 mg 2 tab(s), Oral, q4h albuterol - ipratropium 2.5 mg-0.5 mg/3 mL Inhal Elva UD 3 mL, Inhalation, q4hRT dextrose 50% Solution Disp syringe 50 mL 25 gram(s) 50 mL, IV Push, AsDirected HYDROmorphone 0.5 mg/0.5 mL syringe 0.25 mg 0.25 mL, IV Push, q3h ondansetron 2 mg/ 1 mL 2 mL INJ 4 mg 2 mL, IV Push, q4h Lab Results 12/31 05:47 WBC: 14.6 H Hgb: 9.8 L Hct: 29.6 L Platelet: 220 Neutrophil %: 87.2 H Glucose Level: 92 Sodium Level: 128 L Potassium Level: 5.6 H BUN: 47.0 H Creatinine Lvl (s): 5.30 H 12/30 22:23 WBC: 16.1 H Hgb: 9.8 L Hct: 29.9 L Platelet: 217 Neutrophil %: 90.8 H Glucose Level: 139 H Sodium Level: 128 L Potassium Level: 5.2 H BUN: 46.0 H Creatinine Lvl (s): 5.02 H EKG Electrocardiogram (EKG) - InProcess -- 12/30/24 20:37:00 EDT Electrocardiogram (EKG) - InProcess -- 12/30/24 21:21:00 EDT Assessment/Plan Multifocal pneumonia Otitis media Leukocytosis Concern for mesenteric abdominal mass ESRD on HD MWF Hyperkalemia Hyponatremia Chronic anemia T2DM Other history HTN, HLD, CAD s/p CABG, GERD, obesity Plan Will continue Zosyn, plan to de-escalate to Rocephin over next 24 hours MRSA PCR negative, will stop Vancomycin Atypicals pending Leukocytosis improved, no fevers. O2 stable on RA IR biopsy of abdominal mass pending, tentatively planned for 01/01, oncology to evaluate once pathology resulted. Nephrology following for ESRD, s/p dialysis treatment today. Will trend labs BS reviewed and are stable, will add SSI, ADA diet Resume remainder of chronic medications Level of Care Indication SD monitor (other: specify in note) electrolyte abnormalities DVT Prophylaxis Heparin SQ Maintenance IVF Indication NA / No maintenance IVF Indwelling Urinary Catheter Indication NA No indwelling catheter Anticipated Timeline of Discharge 72+ hours Anticipated DC Disposition SNF Plan discussed with patient. Updated sister bedside Case d/w Dr Schumacher Digitally Signed by RILEY PIERRE on 12/31/2024 02:[address] [facility] 12-31-2024 Note Date of Service 12/31/24 Chief Complaint PNA, abdominal mass Subjective 49-year-old male with past medical history of end-stage renal disease on hemodialysis Saturday, hypertension, hyperlipidemia, CAD status post CABG, type 2 diabetes mellitus, BPH, GERD, obesity, anemia, resides at [facility]. Patient presented from [facility] to [facility] on 12/30/2024 for shortness of breath and abdominal pain. 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 He was found to have leukocytosis of 19. Patient was afebrile, tachycardic, on room air. Transferred to [facility] for further management. Lab work at [facility] showed leukocytosis of 16.1, hemoglobin 9.8, glucose 139, sodium 128, potassium 5.2, BUN 46, creatinine 5.02. Lactic acid was 0.7. Troponin was negative. MRSA PCR negative. Patient was afebrile, tachycardic at 111, blood pressure 124/86, on room air. Patient was started on broad spectrum antibiotics for multifocal pneumonia. Nephrology following for end-stage renal disease. IR guided biopsy of mesenteric mass is pending. Patient seen today after dialysis. Sister and family were bedside. Patient states his breathing feels a bit improved after dialysis. He denied CP or abdominal pain. No N/V. He states he is eating and drinking without issues. Objective Vitals and Measurements T: 36.4 C (Skin) TMIN: 36.4 C (Skin) TMAX: 36.9 C (Oral) HR: 108 (Apical) RR: 18 BP: 93/59 SpO2: 91% HT: 149 cm WT: 106.7 kg BMI: 50.36 Intake and Output 7AM Yesterday to 7AM Today Intake and Output (Last 24 hours) Intake Oral Intake 400.00 Output Urine Voided 300.00 Hemodialysis 1000.00 Stool Count 0.00 Emesis Count 0.00 Total Summary Total Intake 400.00 Total Output 1300.00 Fluid Balance -900.00 Physical Exam Physical Exam General: No acute distress. Alert and Appropriate Skin: No rash. Warm, Dry HEENT: Head is normocephalic and atraumatic. No lesions. Pupils equal in size. Extraocular movements within normal limits. Nose: No septal deviation. Mouth: Oropharynx mucosa is without lesion. Neck: Supple. Lungs: Bilaterally diminished breath sounds with no crepitation or wheeze. Unlabored on room air Cardiovascular: Heart is regular rhythm, S1S2, No extra-audible heart tones Abdomen: Abdomen is soft, nontender. Rounded. Bowel sounds positive all four quadrants. Extremities: No clubbing, cyanosis. Peripheral pulses palpable. No calf tenderness. Adequate peripheral circulation. Neurological: The patient is awake, oriented to time, people and place. Following simple commands, moving all extremities. Weight Dosing Weight: 106.7 kg (12/31/24) Dosing Weight: 108.4 kg (12/31/24) Medications Medications (19) Active Scheduled: (14) aspirin 81 mg EC 81 mg 1 tab(s), Oral, Daily atorvastatin 40 mg tablet 40 mg 1 tab(s), Oral, Daily famotidine 20 mg tablet 20 mg 1 tab(s), Oral, qHS gabapentin 300 mg Capsule 300 mg 1 cap(s), Oral, qDay heparin 5,000 units/mL (1 mL) vial 5,000 unit(s) 1 mL, Subcutaneous, q8h hydrocortisone/neomycin/polymyxi n B OTIC SOLUTION 1%-0.35%-87109 u/mL 4 drop(s), Ear, left, QID insulin lispro 100 units/mL Soln (3 mL) Give 0-10 units/dose, Subcutaneous, TIDAC metoprolol succinate 50 mg ER tablet 50 mg 1 tab(s), Oral, qDay midodrine 5 mg tablet 5 mg 1 tab(s), Oral, Mon/Sat/Fri pantoprazole 40 mg EC tablet 40 mg 1 tab(s), Oral, BID Pharmacy Consult 1 EA, Miscellaneous, Daily piperacillin-tazobactam PMX 3.375 gram(s) 70 mL, IV Piggyback, q12hr polyethylene glycol 3350 - UD packet 17 gram(s) 15 mL, Oral, Mon/Sat/Fri tamsulosin 0.4 mg Capsule 0.4 mg 1 cap(s), Oral, qDay Continuous: (0) PRN: (5) acetaminophen 325 mg Tablet 650 mg 2 tab(s), Oral, q4h albuterol - ipratropium 2.5 mg-0.5 mg/3 mL Inhal Elva UD 3 mL, Inhalation, q4hRT dextrose 50% Solution Disp syringe 50 mL 25 gram(s) 50 mL, IV Push, AsDirected HYDROmorphone 0.5 mg/0.5 mL syringe 0.25 mg 0.25 mL, IV Push, q3h ondansetron 2 mg/ 1 mL 2 mL INJ 4 mg 2 mL, IV Push, q4h Lab Results 12/31 05:47 WBC: 14.6 H Hgb: 9.8 L Hct: 29.6 L Platelet: 220 Neutrophil %: 87.2 H Glucose Level: 92 Sodium Level: 128 L Potassium Level: 5.6 H BUN: 47.0 H Creatinine Lvl (s): 5.30 H 12/30 22:23 WBC: 16.1 H Hgb: 9.8 L Hct: 29.9 L Platelet: 217 Neutrophil %: 90.8 H Glucose Level: 139 H Sodium Level: 128 L Potassium Level: 5.2 H BUN: 46.0 H Creatinine Lvl (s): 5.02 H EKG Electrocardiogram (EKG) - InProcess -- 12/30/24 20:37:00 EDT Electrocardiogram (EKG) - InProcess -- 12/30/24 21:21:00 EDT Assessment/Plan Multifocal pneumonia Otitis media Leukocytosis Concern for mesenteric abdominal mass ESRD on HD MWF Hyperkalemia Hyponatremia Chronic anemia T2DM Other history HTN, HLD, CAD s/p CABG, GERD, obesity Plan Will continue Zosyn, plan to de-escalate to Rocephin over next 24 hours MRSA PCR negative, will stop Vancomycin Atypicals pending Leukocytosis improved, no fevers. O2 stable on RA IR biopsy of abdominal mass pending, tentatively planned for 01/01, oncology to evaluate once pathology resulted. Nephrology following for ESRD, s/p dialysis treatment today. Will trend labs BS reviewed and are stable, will add SSI, ADA diet Resume remainder of chronic medications Level of Care Indication SD monitor (other: specify in note) electrolyte abnormalities DVT Prophylaxis Heparin SQ Maintenance IVF Indication NA / No maintenance IVF Indwelling Urinary Catheter Indication NA No indwelling catheter Anticipated Timeline of Discharge 72+ hours Anticipated DC Disposition SNF Plan discussed with patient. Updated sister bedside Case d/w Dr Schumacher Digitally Signed by RILEY PIERRE on 12/31/2024 02:[address] [facility] 12-31-2024 Nephrology Progress note Date of Service 12/31/2024 Patient is seen on dialysis. He is resting comfortably. Vitals reviewed, BP 96/61. Albumin for hypotension has been ordered. Midodrine was ordered already. Left arm AV graft working well, cannulated with 2 needles without any issues. Patient's questions were answered. Discussed with dialysis nursing staff. Will follow. Digitally Signed by LUCIUS ANDREWS MD on 12/31/2024 10:[address] [facility] 12-31-2024 Nephrology Consul t note Date of Service 12/31/2024 Reason for Consultation ESRD on HD, missed dialysis yesterday. Referring Physician Dr. Schumacher. History of Present Illness Mr. Monsalve is a pleasant 49-year-old gentleman with past medical history of ESRD for which he receives hemodialysis on MWF at [facility] dialysis [place]. His other medical problems include GERD, hyperlipidemia, hypertension, diabetes, BPH, coronary artery disease status post CABG who is a resident of nursing facility in [facility]. Patient was having worsening shortness of breath and abdominal pain. He was sent to [facility] for evaluation. From there he was transferred to [facility] for multifocal pneumonia and possible mesenteric mass. He was admitted under hospitalist service. He was started on IV antibiotics Zosyn and vancomycin. He does have chronic hypotension and requires midodrine before each dialysis. Renal consultation was requested for dialysis management. Review of Systems A detailed 10 point review of systems was obtained including constitutional, HEENT, respiratory, cardiovascular, gastrointestinal, genitourinary, musculoskeletal, skin, neurological, psychological, endocrine and hematological. Most of the review of systems is as stated in the history of present illness. At present patient is sitting comfortably in bed. He is not on any oxygen. He complains of shortness of breath which has been worsening for last couple of days. He is feeling somewhat better today. He denies any chest pain. He denies any nausea, vomiting, diarrhea, abdominal pain, dizziness, lightheadedness. He complains of cough with minimal phlegm production. His last dialysis was on Saturday as per his regular schedule. He did not get dialysis yesterday as he was in the ER at [facility]. Review of all other systems is negative. Physical Exam Vitals and Measurements T: 36.8 C (Oral) TMIN: 36.6 C (Oral) TMAX: 36.8 C (Oral) HR: 107 RR: 18 BP: 93/60 SpO2: 91% HT: 149 cm WT: 111.8 kg BMI: 50.36 Weight Dosing Weight: 111.8 kg (12/30/24) HEENT: PEERLA, no pallor Neck: No JVD appreciated Respiratory: Bilateral air entry is present, decreased at bases with occasional rhonchi present Cardiovascular: S1-S2 present, no rub Abdomen: Obese, soft, NT, BS present Genitourinary: No bladder fullness appreciated Extremities: Bilateral AKA noted, left upper arm AV graft present, bruit present Neurological: Awake and responsive verbal commands, no asterixis Psychological: Alert oriented x 3 Musculoskeletal: Bilateral AKA noted Skin: No ulcerations Lab Results 12/31 05:47 WBC: 14.6 H Hgb: 9.8 L Hct: 29.6 L Platelet: 220 Neutrophil %: 87.2 H Glucose Level: 92 Sodium Level: 128 L Potassium Level: 5.6 H BUN: 47.0 H Creatinine Lvl (s): 5.30 H CO2: 24 Calcium: 8.6 Magnesium: 2.6 12/30 22:23 WBC: 16.1 H Hgb: 9.8 L Hct: 29.9 L Platelet: 217 Neutrophil %: 90.8 H Glucose Level: 139 H Sodium Level: 128 L Potassium Level: 5.2 H BUN: 46.0 H Creatinine Lvl (s): 5.02 H Assessment/Plan 1. ESRD on HD on MWF: Missed dialysis yesterday 2. Hyperkalemia: Due to missed dialysis 3. Multifocal pneumonia: On antibiotics 4. Chronic hypotension: Restart midodrine before dialysis 5. Anemia due to ESRD: Retacrit with dialysis 6. Possible mesenteric abdominal mass 7. Diabetes 8. Obesity Continue with current management. Agree with antibiotics. Patient's hyperkalemia will resolve with dialysis today. Will arrange for dialysis today as he missed dialysis yesterday. Dialysis tomorrow again as per his regular schedule. Expect hyperkalemia to resolve with today's dialysis. Restart midodrine before dialysis. Labs in AM. Discussed with patient. Also discussed with dialysis nursing staff. Will closely follow the patient while he is in the hospital. Thank you very much for your consultation and allowing me to participate in Mr. Monsalve's care. Problem List/Past Medical History ESRD on HD on MWF at [facility] dialysis unit Chronic hypotension Diabetes Coronary artery disease, status post CABG BPH Hyperlipidemia GERD Anemia due to ESRD Hyperparathyroidism due to ESRD Neuropathy Procedure/Surgical History Left arm AV graft placement Bilateral AKA Hernia repair Cardiac catheterization CABG Medications Inpatient Dextrose 50% IV Push, 25 gram(s)= 50 mL, IV Push, AsDirected, PRN Dilaudid, 0.25 mg= 0.25 mL, IV Push, q3h, PRN DuoNeb, 3 mL, Inhalation, q4hRT, PRN heparin 5000 units/mL injection, 5000 unit(s)= 1 mL, Subcutaneous, q8h hydrocortisone/neomycin/polymyxi n B 1%-0.35%-10,000 units/mL otic solution, 4 drop(s), Ear, left, QID Pharmacy Consult, 1 EA, Miscellaneous, Daily Tylenol, 650 mg= 2 tab(s), Oral, q4h, PRN VANCOMYCIN -- pharmacy re-dosing by random level, 1 EA, Miscellaneous, Daily Zofran, 4 mg= 2 mL, IV Push, q4h, PRN Zosyn, 3.375 gram(s)= 70 mL, IV Piggyback, q12hr Home Advair Diskus 250 mcg-50 mcg inhalation powder, 1 puff(s), Inhalation, BID amLODIPine 5 mg oral tablet, See Instructions aspirin 81 mg oral delayed release tablet, 81 mg= 1 tab(s), Oral, Daily atorvastatin 40 mg oral tablet, 40 mg= 1 tab(s), Oral, Daily atorvastatin 40 mg oral tablet, 40 mg= 1 tab(s), Oral, Daily Ciclodan 8% topical solution, 1 dina, Topical, Daily cyclobenzaprine 10 mg oral tablet, 10 mg= 1 tab(s), Oral, qHS diphenhydrAMINE 25 mg oral tablet, 25 mg= 1 tab(s), Oral, qHS, PRN famotidine 40 mg oral tablet, 40 mg= 1 tab(s), Oral, qHS fluticasone proprionate NASAL 50 mcg/ spray, 50 mcg= 1 spray(s), Nostril, each, qAM gabapentin 300 mg oral capsule, 300 mg= 1 cap(s), qDay lidocaine 4% patch, 1 patch(es), Topical, qDay, PRN lidocaine 4% topical gel, 1 pump(s), Topical, qDay, PRN loperamide 2 mg oral capsule, 2 mg= 1 cap(s), Oral, q4h, PRN magnesium oxide 400 mg oral tablet, 400 mg= 1 tab(s), Oral, TID Melatonin 5 mg oral tablet, 5 mg= 1 tab(s), Oral, qHS, PRN metoprolol succinate 50 mg oral TABLET extended release, 50 mg= 1 tab(s), Oral, qDay midodrine 5 mg oral tablet, See Instructions MiraLax oral powder for reconstitution, 17 gram(s), Oral, Mon/Sat/Fri mupirocin 2% topical cream, 1 dina, Topical, qDay Mycostatin 100,000 units/g topical ointment, 1 dina, Topical, QID ondansetron 4 mg oral tablet, 8 mg= 2 tab(s), Oral, Mon/Sat/Fri pantoprazole 40 mg oral enteric coated tablet, 40 mg= 1 tab(s), Oral, BID sodium chloride nasal spray, 1 spray(s), Nostril, each, AsDirected, PRN tamsulosin 0.4 mg oral capsule, 0.4 mg= 1 cap(s), Oral, qDay Allergies NKA Social History Tobacco Nicotine Use: Former smoker, quit more than 30 days ago. Smokeless Tobacco Use: Smokeless tobacco user within last 30 days., 07/22/2024 Immunizations No qualifying data available. Digitally Signed by LUCIUS ANDREWS MD on 12/31/2024 08:[address] [facility] 12-30-2024 History and physical note Date of Service December 30, 2024 Chief Complaint Shortness of breath History of Present Illness This is a 49-year-old male with a past medical history consistent with ESRD on HD, CAD status post CABG hypertension, hyperlipidemia who presents with a chief complaint of shortness of breath. Patient currently resides facility, increased complaints of shortness of breath on exertion and abdominal pain. Prompted evaluation at [facility]. 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 Patient states that he missed his Saturday dialysis session. Was given IV vancomycin, IV Zosyn upon arrival. EKG upon arrival demonstrating junctional tachycardia. Pertinent labs, admission labs are ordered, pending. Previous CBC, patient a leukocytosis of 19. CMP consistent with ESRD changes. Additional complaints upon arrival, patient with left ear drainage. Heart rate 111 last measured, otherwise vital signs are stable. Nurse was at bedside to discuss care. Review of Systems Complete detailed review of systems obtained and all pertinent positives and negatives are noted in the history of present illness. Physical Exam Vitals and Measurements T: 36.6 C (Axillary) HR: 111 RR: 18 BP: 124/86 SpO2: 95% HT: 149 cm WT: 111.8 kg BMI: 50.36 Weight Dosing Weight: 111.8 kg (12/30/24) Physical Examination General: No apparent distress. Alert and appropriate. HEENT: Left ear purulent drainage Neck: Supple. No appreciable elevation in JVP. Cardiovascular: S1 S2 normal. No extra-audible heart tones. Respiratory: Bilaterally clear breath sounds with no crepitation or wheeze. Abdominal: Soft, nontender and nonrigid. No guarding. Bowel sounds present. Extremities: No edema. Adequate peripheral circulation. Neurological: Grossly intact without focal deficit. Cerebellar function preserved. Skin: Intact. Dry. No rash. Lab Results No 36 Hour Lab Data Imaging Results and Diagnostics CTAP reviewed from facility, mention of mesenteric mass and multifocal pneumonia EKG Junctional tachycardia, personally reviewed Assessment/Plan Multifocal pneumonia Mesenteric, abdominal mass ESRD on HD CAD status post CABG Otitis media Hypertension Hyperlipidemia The patient was admitted to stepdown for management of multiple medical issues: Multifocal pneumonia, patient currently resides at SNF, will order IV vancomycin, IV Zosyn. De-escalate antibiotics as able with MRSA PCR, urinary antigens and respiratory culture which are ordered, pending. In setting of abdominal mass, heterogenic cystic mesenteric mass demonstrated on CTAP, IR guided biopsy is ordered. Oncology services consulted, appreciate recommendations. In setting of need for HD given patient's ESRD, nephrology is consulted, missed Saturday dialysis session. Will order ciprofloxacin otic drops given ear infection, despite patient being on broad-spectrum antibiotics CBC and BMP are ordered daily and replete electrolytes per dialysis. Continue patient's home chronic medications pending pharmacy verification. The labs, the imaging, the EKG were personally reviewed in this case. The case was personally discussed with the ED physician. DVT prophylaxis: SCDs The patient is a full code The patient will require a 2 midnight stay for management of multimedical issues including multifocal pneumonia requiring IV antibiotics, risk of decompensation and development of sepsis at discharge. Additionally, patient needs workup of abdominal mass, likely neoplastic. Procedure/Surgical History Fistula Amputation above-knee CABG - Coronary artery bypass graft Hernia repair Medications Home Medications (25) Active Advair Diskus 250 mcg-50 mcg inhalation powder 1 puff(s), Inhalation, BID amLODIPine 5 mg oral tablet See Instructions aspirin 81 mg oral delayed release tablet 81 mg = 1 tab(s), Oral, Daily atorvastatin 40 mg oral tablet 40 mg = 1 tab(s), Oral, Daily atorvastatin 40 mg oral tablet 40 mg = 1 tab(s), Oral, Daily Ciclodan 8% topical solution 1 dina, Topical, Daily cyclobenzaprine 10 mg oral tablet 10 mg = 1 tab(s), Oral, qHS diphenhydrAMINE 25 mg oral tablet 25 mg = 1 tab(s), PRN, Oral, qHS famotidine 40 mg oral tablet 40 mg = 1 tab(s), Oral, qHS fluticasone proprionate NASAL 50 mcg/ spray 50 mcg = 1 spray(s), Nostril, each, qAM gabapentin 300 mg oral capsule 300 mg = 1 cap(s), qDay lidocaine 4% patch 1 patch(es), PRN, Topical, qDay lidocaine 4% topical gel 1 pump(s), PRN, Topical, qDay loperamide 2 mg oral capsule 2 mg = 1 cap(s), PRN, Oral, q4h magnesium oxide 400 mg oral tablet 400 mg = 1 tab(s), Oral, TID Melatonin 5 mg oral tablet 5 mg = 1 tab(s), PRN, Oral, qHS metoprolol succinate 50 mg oral TABLET extended release 50 mg = 1 tab(s), Oral, qDay midodrine 5 mg oral tablet See Instructions MiraLax oral powder for reconstitution 17 gram(s), Oral, Mon/Sat/Fri mupirocin 2% topical cream 1 dina, Topical, qDay Mycostatin 100,000 units/g topical ointment 1 dina, Topical, QID ondansetron 4 mg oral tablet 8 mg = 2 tab(s), Oral, Sat/Sat/Fri pantoprazole 40 mg oral enteric coated tablet 40 mg = 1 tab(s), Oral, BID sodium chloride nasal spray 1 spray(s), PRN, Nostril, each, AsDirected tamsulosin 0.4 mg oral capsule 0.4 mg = 1 cap(s), Oral, qDay Allergies NKA Social History Tobacco Nicotine Use: Former smoker, quit more than 30 days ago. Smokeless Tobacco Use: Smokeless tobacco user within last 30 days., 07/22/2024 Immunizations No qualifying data available. Code Status Code Status - Ordered -- 12/30/24 21:44:00 EDT, Full Code, Constant Order Digitally Signed by BENNY ALEXANDER DO on 12/30/2024 10:[address] [facility] 12-30-2024 Note Exam Date Time Procedure Performing Provider Status 12/30/24 9:34 PM Electrocardiogram - EKG - CV CLINTON ALVAREZ MD; Auth (Verified) ECG Final Report Atrial flutter with RVR Right bundle branch block Borderline ST depression, lateral leads Electronic Signature: PRICILA ALVAREZ MD 12/31/2024 23:00:[address] [id number] Note* Exam Date Time Procedure Performing Provider Status 12/30/24 8:51 PM Electrocardiogram - EKG - CV CLINTON ALVAREZ MD; Auth (Verified) ECG Final Report Atrial flutter with predominant 2:1 AV block Nonspecific intraventricular conduction delay Repol abnrm suggests ischemia, anterolateral Electronic Signature: PRICILA ALVAREZ MD 12/31/2024 22:58:[address] [facility] [id number] Evaluation + Plan noteExtracted from: Title:History and Physical Author:BENNY ALEXANDER Date:12/30/24 Multifocal pneumonia Mesenteric, abdominal mass ESRD on HD CAD status post CABG Otitis media Hypertension Hyperlipidemia The patient was admitted to stepdown for management of multiple medical issues: Multifocal pneumonia, patient currently resides at SNF, will order IV vancomycin, IV Zosyn. De-escalate antibiotics as able with MRSA PCR, urinary antigens and respiratory culture which are ordered, pending. In setting of abdominal mass, heterogenic cystic mesenteric mass demonstrated on CTAP, IR guided biopsy is ordered. Oncology services consulted, appreciate recommendations. In setting of need for HD given patient's ESRD, nephrology is consulted, missed Saturday dialysis session. Will order ciprofloxacin otic drops given ear infection, despite patient being on broad-spectrum antibiotics CBC and BMP are ordered daily and replete electrolytes per dialysis. Continue patient's home chronic medications pending pharmacy verification. The labs, the imaging, the EKG were personally reviewed in this case. The case was personally discussed with the ED physician. DVT prophylaxis: SCDs The patient is a full code The patient will require a 2 midnight stay for management of multimedical issues including multifocal pneumonia requiring IV antibiotics, risk of decompensation and development of sepsis at discharge. Additionally, patient needs workup of abdominal mass, likely neoplastic. Future Appointments Appointment Date:01/05/2025 10:00:00 AM Scheduled Provider: Location:[facility] Appointment Type:CT Abdomen w/o Contrast Diagnostic Tests Pending * Culture Respiratory with Gram Stain 12/30/24 * Streptococcus Pneumoniae Urine Antig 12/30/24 * Legionella Urine Ag 12/30/24 Future Scheduled Tests Radiology* CT Abdomen w/o Contrast 01/05/[address] [facility] 06-18-2025 Radiology Diagnostic study note [facility] Imaging Services [address] [place], [place] [id number] CT Chest, Abd, Pelvis WO Cont MR#: [id number] Acct: [id number] Name: AGUSTO MONSALVE Rep #: [id number] : 1975 M 49 From: Julio Koo MD PCP: Kayleen Pederson MD Status: REG ER Study:CT Chest, Abd, Pelvis WO Cont Date of Amparo xam: 12/30/24 Exam# [id number] Ordering Dr: Garrett Singh DO PROCEDURE: CT CHEST, ABD, PELVIS WO CONT 12/30/2024 REASON FOR EXAM: INFECTION, UNCLEAR SOURCE TECHNIQUE: Chest, abdomen and pelvis CT without intravenous contrast. Coronal and Sagittal reconstruction series were provided. One or more dose reduction techniques were used (e.g., Automated exposure control, adjustment of the mA and/or kV according to patient size, use of iterative reconstruction technique. RADIATION DOSE SUMMARY: CTDlvol: 27.06 mGy DLP: 2240 mGycm COMPARISON: 12/30/2024. FINDINGS: Mild cardiomegaly. Prior CABG. Bilateral basilar atelectatic pulmonary changes. Subsegmental atelectasis/airspace disease of the right middle lobe and lingula, probably multifocalpneumonia. Mild multifocal ground-glass densities of the lung bases, possibly multifocal pneumonia. Hepatomegaly. Cystic lesion is noted along the lesser curvature of the stomach extending to the lesser sac measuring 7.5 x 5.3 cm, suspicious for neoplastic pathology. Cholelithiasis with mild diffuse thickening of the wall of the gallbladder. This can be further evaluated by ultrasound exam. Heterogeneous cystic central mesenteric mass lesion is noted measuring 17 x 22 x19.3 cm, probably neoplastic pathology. Splenomegaly measuring 16.3 cm. Mild osteopenia. Diffuse spondylosis. Bilateral nonobstructing renal stones with the largest measuring 2 mm. Fat containing umbilical hernia without incarceration. Normal unenhanced main pulmonary artery and right and left pulmonary arteries. Normal bilateral peripheral pulmonary arteries. Normal thoracic aorta and visualized great vessels. There is no demonstrated aortic aneurysm. Normal pericardium. Normal mediastinum. Normal hilar regions. Normal visualized trachea and bronchi. Normal pleura. Normal unenhanced liver. Normal extrahepatic biliary system. Normal pancreas. Normal bilateral adrenal glands. Normal size of the right kidney. There is no right renal mass. There is no right hydronephrosis. Normal visualized right ureter. Normal size of the left kidney. There is no left renal mass. There is no left hydronephrosis. Normal visualized left ureter. Normal visualized stomach. Normal small intestine. Normal colon. The appendix is visualized and appears normal. There is no demonstrated peritoneal fluid. Normal abdominal aorta. Normal inferior vena cava. Normal retroperitoneum. Normal urinary bladder. There is no pelvic mass lesion or lymphadenopathy. There is no pelvic fluid. CT/CT Chest, Abd, Pelvis WO [facility] IMPRESSION: 1. Mild cardiomegaly. 2. Prior CABG. 3. Bilateral basilar atelectatic pulmonary changes. 4. Subsegmental atelectasis/airspace disease of the right middle lobe and lingula, probably multifocal pneumonia. 5. Mild multifocal ground-glass densities of the lung bases, possibly multifocalpneumonia. 6. Hepatomegaly. 7. Cystic lesion is noted along the lesser curvature of the stomach extending tothe lesser sac measuring 7.5 x 5.3 cm, suspicious for neoplastic pathology. 8. Cholelithiasis with mild diffuse thickening of the wall of the gallbladder. This can be further evaluated by ultrasound exam. 9. Heterogeneous cystic central mesenteric mass lesion is noted measuring 17 x 22 x 19.3 cm, probably neoplastic pathology. 10. Splenomegaly measuring 16.3 cm. 11. Mild osteopenia. 12. Diffuse spondylosis. 13. Bilateral nonobstructing renal stones with the largest measuring 2 mm. 14. Fat containing umbilical hernia without incarceration. Reading Location: [place] [address] CC: Kayleen Pederson MD; Dr. Poppy Singh DO ~ Clinical Training Coordinator: Signed [facility]06-18-2025 Radiology Diagnostic study note [facility] Imaging Services [address] [place], [place] [address] Chest 1 View (Portable) MR#: [id number] Acct: [id number] Name: AGUSTO MONSALVE Rep #: [id number] : 1975 M 49 From: Julio Koo MD PCP: Kayleen Pederson MD Status: REG ER Study:Chest 1 View (Portable) Date of Exam: 12/30/24 Exam# [id number] Ordering Dr: Garrett Singh DO PROCEDURE: CHEST 1 VIEW (PORTABLE) 12/30/2024 REASON FOR EXAM: COUGH TECHNIQUE: Frontal view of the chest. COMPARISON: 02/09/2024. FINDINGS: Unremarkable median sternotomy wires. Decreased central pulmonary venous congestion. Mild bilateral basilar atelectatic pulmonary changes. There is no demonstrated pleural abnormality. Enlarged cardiac silhouette. Normal mediastinum and tameka. Normal visualized pulmonary arteries. Atheromatous plaques of the visualized aortic arch and descending thoracic aorta. Diffuse spondylosis of the visualized thoracic spine. Normal visualized ribs, clavicles. Degenerative joint disease. There is no demonstrated abnormality of the visualized soft tissue structures ofthe upper abdomen. RAD/Chest 1 View (Portable) IMPRESSION: Unremarkable median sternotomy wires. Decreased central pulmonary venous congestion. Mild bilateral basilar atelectatic pulmonary changes. Unchanged cardiomegaly. Reading Location: [place] [address] CC: Kayleen Pederson MD; Dr. Poppy Singh DO ~ Clinical Training Coordinator: Signed [facility]06-05-2025 NoteORIGINAL PROCEDURE: ULTRASOUND EVALUATION FOR PARACENTESIS CLINICAL STATEMENT: [...] Lynnette Quintero PA-C Electronically signed By Fabby Girffin MD Dictated Date: 12/17/2024 3:26:09 PM Prelim Date: 12/17/2024 3:31:17 PM Sign Date: 12/17/2024 9:35:41 PM Ordering Provider: [facility]06-05-2025 Note* Leta Lee: SIGN, AUTHOR, PERFORM Event Display: US Procedure Record Authored Date: US Procedure Record Summary Primary Physician: Finalized Date/Time: 12/17/24 13:13:04 Pt. Name: AGUSTO MONSALVE./Sex: 1975 Male Med Rec #: [id number] Physician: Financial #: [id number] Pt. Type: O Room/Bed: / Admit/Disch: 12/17/24 09:44:00 - Institution: Allergies identified in patient's electronic medical record at time of printing on 12/17/24 Entry 1 Substance NKA Reaction Type Allergy Last Modified By: Jessica Powell RN 07/22/24 02:52:44 Case Attendance- US Entry 1 Entry 2 Entry 3 Case Attendee LYNNETTE QUINTERO Technician KAR, MITRYAN MD PA-C Kelly J Role Performed Radiology PA/RA Circulating Technologist Radiologist Procedure Details Time In 12/17/24 10:45:00 12/17/24 10:45:00 12/17/24 11:00:00 Time Out 12/17/24 11:15:00 12/17/24 11:15:00 12/17/24 11:10:00 Procedure/Preference Case Cancelled After in Case Cancelled After in Case Cancelled After in Card Room/Induction Room/Induction Room/Induction Last Modified By: Leta Lee Credit CollectorLeta Dao 12/17/24 Yesy Prieto 12/17/24 Yesy Prieto [...] By: Leta Lee Document Signatures Signed By: Leat Lee 12/17/24 13:[address] [facility] 06-05-2025 Note US Procedure Record Summary Primary Physician: Finalized Date/Time: 12/17/24 13:13:04 Pt. Name: AGUSTO MONSALVE./Sex: 1975 Male Med Rec #: [id number] Physician: Financial #: [id number] Pt. Type: O Room/Bed: / Admit/Disch: 12/17/24 09:44:00 - Institution: Allergies identified in patient's electronic medical record at time of printing on 12/17/24 Entry 1 Substance NKA Reaction Type Allergy Last Modified By: Jessica Powell RN 07/22/24 02:52:44 Case Attendance- US Entry 1 Entry 2 Entry 3 Case Attendee LYNNETTE QUINTERO, Credit Collector FABBY GRIFFIN MD, PA-C Role Performed Radiology PA/RA Circulating [...] Signatures Signed By: Leta Lee 12/17/24 13:[address] [id number] Note* Exam Date Time Procedure Performing Provider Status 12/17/24 11:35 AM US Abdomen for Ascites FABBY GRIFFIN MD ; Auth (Verified) [id number] ORIGINAL PROCEDURE: ULTRASOUND EVALUATION FOR PARACENTESIS CLINICAL [...] Sign Date: 12/17/2024 9:35:41 PM Ordering Provider: [facility]05-27-2025 [facility] [address] [place] [address]. [address] [place] [address] OFFICE VISIT Date of Service: 12/08/24 MR#: [id number] Acct: [id number] Name: AGUSTO MONSALVE Rep #: [id number] : 1975 Provider: Dr. Sebastien Osborne MD Age/Sex: 49/M Location: [facility] Status: Signed HPI HPI History of Present Illness Details: This gentleman has been referred to us for establishing cardiac care. Patient has a complex past medical history. 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 Patient denies any chest pains. He has [...] Source NIBP Intake Visit Reasons: Abnormal EKG Electroplater Automatic Required: No Accompanied by: Self Is patient [...] ea 01/09/24 12/08/24 Rx (FreeStyle Bianca 2 Kensett) flash glucose sensor (FreeStyle #1 ea 01/09/24 [...] ventricle. Cardiac Catheterization 05/18/2019 Interpretation Summary Severe [place] coronary artery disease. Moderately depressed left ventricular [...] hypertension, I25.10 - Atherosclerotic heart disease of [place] coronary artery without angina pectoris, R00.0 - [...] Cardiac Ejection fraction %: 40 12/08/24 1203 MD> Date _ Tiburcio Osborne MD Cosigner Signature: Date (if applicable) CC: Kayleen Pederson MD ~ [facility]05-27-2025 Progress note Author Tiburcio Osborne [facility] Note Date/Time December 08, 2024 12:03 pm [facility] [address] [place] [address]. [address] [place] [address] OFFICE VISIT Date of Service: 12/08/24 MR#: [id number] Acct: [id number] Name: AGUSTO MONSALVE Rep #: [id number] : 1975 Provider: Dr. Sebastien Osborne MD Age/Sex: 49/M [place] [facility] [place] Status: Signed HPI HPI History of Present Illness Details: This gentleman has been referred to us for establishing cardiac care. Patient has a complex past medical history. 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 Patient denies any chest pains. He has [...] Source NIBP Intake Visit Reasons: Abnormal EKG Electroplater Automatic Required: No Accompanied by: Self Is patient [...] ea 01/09/24 12/08/24 Rx (FreeStyle Bianca 2 Kensett) flash glucose sensor (FreeStyle #1 ea 01/09/24 [...] ventricle. Cardiac Catheterization 05/18/2019 Interpretation Summary Severe [place] coronary artery disease. Moderately depressed left ventricular [...] hypertension, I25.10 - Atherosclerotic heart disease of [place] coronary artery without angina pectoris, R00.0 - [...] (if applicable) CC: Kayleen Pederson MD ~ [facility] [employer] Work Phone: 1(865) 338-917405-22-2025 Evaluation note* Diagnosis Onset Date Resolution Status [...] amputation) chronic December 08, 2024 1 0:47am [facility] Work Phone: 1(687) 128-932001-09-2025 Hospital Discharge instructions Patient Education 07/23/2024 17:15:19 Hyperkalemia, Dqve-dd-Xanu Hyperkalemia Hyperkalemia is when you have too [...] hospital. Follow these instructions at home: Take btjy-cfr-voljzxj and prescription medicines only as told by [...] need to follow a low-potassium diet. A cook seafood (dietitian) can help you. Keep all follow-up [...] too much potassium in your blood. Take usoz-tqq-qbseaga and prescription medicines only as told by [...] 07/01/2006 Document Revised: 06/16/2018 Document Reviewed: 06/16/2018 [employer] Patient Education 2020 [employer] Follow Up Care 07/22/2024 04:12:55 With:Patient is discharged to [facility]. Please call report to [phone] Address:Unknown When:1-2 days With:KEKE Pennington Address:Unknown When:1-2 days With:DANTE VANG Address: [address] [place] [phone] Business (1) When:1-[address] [facility] 01-09-2025 Note Discharge Instructions Thank you for allowing [facility] to assist you with your healthcare needs. The following is importantdischarge information regarding your hospital visit. Your Care Team DANTE VANG APRN-MICHAEL What to do next Follow Up Appointments Follow Up with Patient is discharged to [facility]. Please call report to [phone] When:Within 1-2 days Follow Up with KEKE Pennington When:Within 1-2 days Follow Up with DANTE VANG When:Within 1-2 days Where:[address] [place] [phone] Business (1) The Following Activity and Diet [...] hospital. Follow these instructions at home: Take ceij-gdz-vqoctoy and prescription medicines only as told by [...] need to follow a low-potassium diet. A cook seafood (dietitian) can help you. Keep all follow-up [...] too much potassium in your blood. Take vrxw-mxb-xdpldyj and prescription medicines only as told by [...] 07/01/2006 Document Revised: 06/16/2018 Document Reviewed: 06/16/2018 [employer] Patient Education 2020 [employer]. Additional Information VACCINATE! IT SAVES LIVES! Members of the community who have not yet received the COVID-19 vaccine and would like to receive it can visit one of [facility] vaccine clinics. There are many vaccine clinic locations within the [facility]. For locations and available times, please visit [email or web address].[place].gov/. It is important to note that some COVID mobile vaccine clinics are held outdoors and may be canceled in rainy or stormy conditions. To learn more about pediatric vaccinations (ages 5-11), we invite you to visit the [facility] webpage. https://www.[email or web address]/pages/5893-Hdlto-Zmdlprzlyau-Qanoddwxvi-Gwdra-Skh stions.htmlTo learn more about the COVID-19 vaccine, we invite you to visit the CDC website for a list of frequently asked questions.https://www.cdc.gov/coronavirus/2019-ncov/vaccines/faq.html [facility] Patient Portal Access Instructions: Stay connected with your healthcare team and access your personal medical information anytime with the [facility] Patient Portal. Please follow the directions below to create your [facility] account: 1.Access the email account you provided upon registration to the hospital/physician office.2.Look for an invitation email from [facility].3.Open the email and access the invitation link: AcceptInvitation to [facility].4.Fill in the required chase to create your account. To access your account, visit [email or web address]. Click the blue button labeled Access Patient Portal and then log in with the username [...] who you will allowto register on the [facility] Patient Portal for access to your information. You can also access the [facility] Patient Portal on the [facility] dina. Simply click on Patient Portal and then log into your account. If you would like to receive a full copy of your medical records, please contact the [facility] Medical Records Department by calling [phone], Saturday through Saturday between 8 a.m. and [...] Call your local pharmacy or go to [email or web address] to find one close to you.3.Make use of household items: Use cat litter or old coffee grounds to dispose medications if other options arenot available. Mix your drugs with these household products, seal them in an airtight container andthrow it into the garbage. Call [facility]: [phone] to be sure your drugs can be [...] CHART COPY. Signatures Patient Education Materials Hyperkalemia, Ewpq-pn-Fcgc Medication Leaflets My discharge plan and instructions have been reviewed and explained to me and I,AGUSTO MONSALVE understand my current condition and have read and understand these discharge instructions. I have received a written copy of the plan/instructions. If I have questions, I am aware that I should contact my d octor. Patient/Public Health Specialist Signature: Date/Time: Relationship to Patient: Witness Name/Signature: Date/Time: [id number] Note Discharge Instructions Thank you for allowing [facility] to assist you with your healthcare needs. The following is importantdischarge information regarding your hospital visit. Your Care Team DANTE VANG APRN-MICHAEL What to do next Follow Up Appointments Follow Up with Patient is discharged to [facility]. Please call report to [phone] When:Within 1-2 days Follow Up with KEKE Pennington When:Within 1-2 days Follow Up with DANTE VANG When:Within 1-2 days Where:[address] [facility] [place] [address] [phone] Business (1) The Following Activity and Diet [...] to receive it can visit one of [facility] vaccine clinics. There are many vaccine clinic locations within the [facility]. For locations and available times, please visit [email or web address].[place].gov/. It is important to note that some COVID mobile vaccine clinics are held outdoors and may be canceled in rainy or stormy conditions. To learn more about pediatric vaccinations (ages 5-11), we invite you to visit the [facility] webpage. https://www.[facility].org/pages/9166-Ozqzw-Wljxifloror-Jyfhpcvhbn-Sstqm-Qtj stions.htmlTo learn more about the COVID-19 vaccine, we invite you to visit the CDC website for a list of frequently asked questions.https://www.cdc.gov/coronavirus/2019-ncov/vaccines/faq.html [facility] Patient Portal Access Instructions: Stay connected with your healthcare team and access your personal medical information anytime with the [facility] Patient Portal. Please follow the directions below to create your [facility] account: 1.Access the email account you provided upon registration to the hospital/physician office.2.Look for an invitation email from [facility].3.Open the email and access the invitation link: AcceptInvitation to [facility].4.Fill in the required chase to create your account. To access your account, visit [employer]. Click the blue button labeled Access Patient Portal and then log in with the username and password that you created in the steps above. You will be able to view your test results, lab results, a summary of your visits, upcoming appointments and more. There is also a convenient messaging option where you can send secure messages to your p [employer]. In addition, you will have the ability to download any documents or summaries to your computer and/or send the information securely to a physician. Remember that your healthcare information is confidential, so carefully consider who you will allowto register on the [facility] Patient Portal for access to your information. You can also access the [facility] Patient Portal on the [employer] dina. Simply click on Patient Portal and then log into your account. If you would like to receive a full copy of your medical records, please contact the [facility] Medical Records Department by calling [phone], Saturday through Saturday between 8 a.m. and [...] Call your local pharmacy or go to [email or web address] to find one close to you.3.Make use of household items: Use cat litter or old coffee grounds to dispose medications if other options arenot available. Mix your drugs with these household products, seal them in an airtight container andthrow it into the garbage. Call [facility]: [phone] to be sure your drugs can be [...] that I should contact my d julioor. Patient/Public Health Specialist Signature: Date/Time: Relationship to Patient: Witness Name/Signature: Date/Time: [facility] [id number] Note Patient out of room for dialysis. Will reattempt assessment at a later time. Digitally Signed by MIRIAM Carey on 07/23/2024 03:[address] [facility] [id number] Respiratory therapy Hospital Progress note Respiratory Therapy [...] 11:00 EST Digitally Signed by Lubna Billy on 07/23/2024 11:[address] [facility] [id number] Nephrology Progress note Objective Vitals and Measurements [...] Every other day fluticasone nasal 0.05 mg/inh [place] 50 mcg 1 spray(s), Nostril, each, BID [...] mg tablet 8 mg 1 tab(s), Oral, Mon/Sat/Fri pantoprazole 40 mg EC tablet 40 mg [...] TON VASQUEZ MD on 07/23/2024 10:[address] [id number] Note Date of Service 07/22/2024 Hospitalist brief [...] KRYSTAL MARAVILLA MD on 07/22/2024 04:[address] [facility] [id number] Evaluation + Plan noteExtracted from: Title:Clinical Document Author:ZAIN FERRO MD Date:07/22/24 [facility] Hospitalist History and Physical Date of Admission: patient is being admitted on July 22, 2024 Chief complaint: shortness of breath History of present illness: History is taken from talking with emergency room physician at [facility] Dr. jultio ibarra as well as talking with the [...] They did discuss the case with nephrology field education coordinator. Past medical history: tobacco abuse, COPD, end-stage [...] 22 02:09)37.2(JUL 22:09)37.2(JUL 22:) Heart RateL 49(JUL 22:06)L 49(JUL 22:06)L 49(JUL 22:) SBPH 164(JUL 22 05:06)139(JUL 22 02:09)H 164(JUL 22:06) DBP86(JUL 22:06)86(JUL 22:06)H 91(RAÚL 08 02:09) Physical examination: HEENT: No Pallor, No Icterus [...] : 9 ml/min/1.73sqm (07/22/24 02:36:00) N-Terminal proBNP: >00795 High (07/22/24 03:09:00) High Sensitivity Troponin I: 27 ng/L (07/22/24 02:36:00) SARS-CoV-2 PCR: Cepheid Neg (07/22/24 02:36:00) FLU A PCR: Cepheid Neg (07/22/24 02:36:00) FLU B PCR: Cepheid Neg (07/22/24 02:36:00) RSV PCR: Cepheid Neg (07/22/24 02:36:00) Blood Glucose, Capillary: 117 mg/dL High (07/22/24 03:45:00) Blood Glucose Testing Reason: Routine (07/22/24 03:45:00) No qualifying data available. Assessment and plan: Patient presents from [facility] emergency room on July 22, 2024 due [...] will need reconciled once they are verified [place] 01-08-2025 Respiratory therapy Hospital Progress note Respiratory [...] Lubna Billy RT on 07/22/2024 10:[address] [facility] [id number] Nephrology Consult note Date of Service 07-22 [...] TON VASQUEZ MD on 07/22/2024 11:[address] [facility] [id number] History and physical note [facility] Hospitalist History and Physical Date of Admission: patient is being admitted on July 22, 2024 Chief complaint: shortness of breath History of present illness: History is taken from talking with emergency room physician at [facility] Dr. julito ibarra as well as talking [...] They did discuss the case with nephrology field education coordinator. Past medical history: tobacco abuse, COPD, end-stage [...] Charted Minimum Maximum Temp37.2(JUL 22 02:09)37.2(JUL 22:09)37.2(JUL 22:09) Heart RateL 49(JUL 22:)L 49(JUL 22:06)L 49(JUL 22:) SBPH 164(JUL 22:)139(JUL 22:09)H 164(JUL 22:) DBP86(JUL 22:)86(JUL 22:)H 91(JUL 22:) [...] : 9 ml/min/1.73sqm (07/22/24 02:36:00) N-Terminal proBNP: >98100 High (07/22/24 03:09:00) High Sensitivity Troponin I: 27 ng/L (07/22/24 02:36:00) SARS-CoV-2 PCR: Cepheid Neg (07/22/24 02:36:00) FLU A PCR: Cepheid Neg (07/22/24 02:36:00) FLU B PCR: Cepheid Neg (07/22/24 02:36:00) RSV PCR: Cepheid Neg (07/22/24 02:36:00) Blood Glucose, Capillary: 117 mg/dL High (07/22/24 03:45:00) Blood Glucose Testing Reason: Routine (07/22/24 03:45:00) No qualifying data available. Assessment and plan: Patient presents from [facility] emergency room on July 22, 2024 due [...] ZAIN FERRO MD on 07/22/2024 06:48 AM [place]01-08-2025 Nurse Progress note Hailey sister, phone number , can be told ANTERIOS. [phone] Digitally Signed by William Hayward RN on 07/22/2024 03:53 AM [place]01-08-2025 Note* Exam Date Time Procedure Performing Provider Status 07/22/24 2:50 AM XR Chest 1 View LEO CRUZ MD; A [facility] (Verified) [id number] ORIGINAL EXAMINATION: ONE XRAY VIEW OF THE [...] 07/22/2024 3:00:32 AM Ordering Provider: KIZZY MEDEROS [place]01-08-2025 Note* Exam Date Time Procedure Performing Provider Status 07/22/24 2:44 AM EKG [ED AOH] - CV KIZZY MEDEROS DO; Auth (Verified) ECG Final Report BRADYCARDIA Right bundle branch block ABNORMAL ECG Electronic Signature: KIZZY MEDEROS DO 07/22/2024 02:53:05 [place]07-21-2022 Evaluation note* Encounter Date Diagnosis Assessment Notes Treatment Notes Treatment Clinical Notes Jan, Cellulitis of lower leg (ICD-10 - L03.119) Jul, Chronic kidney disease, stage 5 (ICD-10 - N18.5) Jul, Type 2 diabetes mellitus with hyperglycemia (ICD-10 - E11.65) [facility] Other 04-07-2022 Evaluation note* Encounter Date Diagnosis [...] we do not have the discharge summary. [facility] Other 02-24-2022 Evaluation note* Encounter Date Diagnosis Assessment Notes Treatment Notes Treatment Clinical Notes Aug, Urinary tract infection, acute (ICD-10 - N39.0) Bactrim sent in error. Pharmacy contacted to cancel RX. Start Doxycyline. Culture ordered Aug, Dysuria (ICD-10 - R30.0) Aug, Other AMA form signed. Refused labs - states he will get today at his appointment from [facility]. Refused to go to ER for abnormal examination (foot wound, HTN). Discussed likely sepsis from UTI and foot wound. He agrees. States he will go [facility]. States he will already be in town and go over. We discuss that his health requires in-depth [...] Sep, Essential (primary) hypertension (ICD-10 - I10) [facility] Other 12-29-2021 Evaluation note* Encounter Date Diagnosis Assessment Notes Treatment Notes Treatment Clinical Notes Jun, Intractable hiccups (ICD-10 - R06.6) Discussed regimen. Start muscle relaxer [facility] Other evaluation noteNo InformationMochila Other evaluation noteNo assessment information available [facility] Work Phone: History general Narrative - ReportedMochila Other History general Narrative - Reported* Type [...] 02/01/21 Hospitalization History osteomyelitis, bilateral foot ulcers 12/22 Hospitalization History hypotension, sep sis, debridement foot ulcer bilaterally 01/30 - 02/03 [facility] Other History general Narrative - Reported* Type [...] 02/01/21 Hospitalization History osteomyelitis, bilateral foot ulcers 12/22 Hospitalization History hypotension, sep sis, debridement foot ulcer bilaterally 01/30 - 02/03 Hospitalization History COVID 08/05 [facility] Other History general Narrative - Reported* Type [...] dise ase involving coronary bypass graft of [place] heart without angina pectoris Medical History Other [...] bilateral foot ulcers 12/22 Hospitalization History at [facility] for hypo tension. Discharge Dx: Sepsis, hypokalemia, dilated cardiomyopathy, debridement foot ulcer bilaterally and Grafix PL Prime 01/30/2021-02/03/2021 Hospitalization History at [facility] - positive for C OVID. 07/24/2021 Hospitalization History at [facility] for gene ralized weakness and low blood pressure. Discharge Dx: Symptomatic anemia, ESRD, chronic systolic heart failure, hypomagnesemia, diabetic foot ulcer, T2 DM, GERD, diabetic neuropathy, COPD, benign hypertension 12/13/2020-12/22/2020 Hospitalization History at [facility]. Dx: Sarah sed fracture of right tibia and fibula 03/14/2020-03/16/2020 Hospitalization History at [facility] for gang jose of toe of right foot 05/10/2020-05/20/2020 Hospitalization History at [facility] for cellulitis o f right foot 04/24/2020- Hospitalization History at [facility] for shor tness of breath and abnormal lab, BNP 25,000, creatinine 5.8, troponin 0.32. Admission Dx: NSTEMI and dyspnea. 05/13/2019-06/01/2019 Hospitalization History at [facility] for abno rmal labs. Discharge Dx: Dyspnea on exertion, presumed new-onset CHF, TELMA on CKD stage III. 01/07/2019-01/10/2019 Hospitalization History at [facility] for left foot swelling. Discharge Dx: Left foot cellulitis with MRSA positive wound culture, s/p debridement 06/21/2018-06/25/2018 [facility] Other History general Narrative - Reported* Type [...] dise ase involving coronary bypass graft of [place] heart without angina pectoris Medical History Other [...] bilateral foot ulcers 12/22 Hospitalization History at [facility] for hypo tension. Discharge Dx: Sepsis, hypokalemia, dilated cardiomyopathy, debridement foot ulcer bilaterally and Grafix PL Prime 01/30/2021-02/03/2021 Hospitalization History at [facility] - positive for C OVID. 07/24/2021 Hospitalization History at [facility] for gene ralized weakness and low blood pressure. Discharge Dx: Symptomatic anemia, ESRD, chronic systolic heart failure, hypomagnesemia, diabetic foot ulcer, T2 DM, GERD, diabetic neuropathy, COPD, benign hypertension 12/13/2020-12/22/2020 Hospitalization History at [facility]. Dx: Sarah sed fracture of right tibia and fibula 03/14/2020-03/16/2020 Hospitalization History at [facility] for gang jose of toe of right foot 05/10/2020-05/20/2020 Hospitalization History at [facility] for cellulitis o f right foot 04/24/2020-10- Hospitalization History at [facility] for shor tness of breath and abnormal lab, BNP 25,000, creatinine 5.8, troponin 0.32. Admission Dx: NSTEMI and dyspnea. 05/13/2019-06/01/2019 Hospitalization History at [facility] for abno rmal labs. Discharge Dx: Dyspnea on exertion, presumed new-onset CHF, TELMA on CKD stage III. 01/07/2019-01/10/2019 Hospitalization History at [facility] for left foot swelling. Discharge Dx: Left foot cellulitis with MRSA positive wound culture, s/p debridement 06/21/2018-06/25/2018 Hospitalization History at [facility] for left foot swelling. Discharge DX: Necrotizing fascitits of lower leg 01/09/22-01/23/2022 [facility] Other History general Narrative - Reported* Type [...] dise ase involving coronary bypass graft of [place] heart without angina pectoris Medical History Other [...] plained diarrhea by Camden Dickey MD, at [facility]. Postop Dx: Normal colonoscopy 01/02/2018 Surgical History Incision and drainag e of left abscess by Flo Brown DO. Postop Dx: Left foot infection 06/24/2018 Surgical History Permcath insertion b y Marquis Hopkins MD, at [facility]. Postop Dx: TELMA on CKD 05/14/2019 Surgical History Coronary angiography w/left heart catheterization by Marquis Pierce MD, at [facility]. Postop Dx: Severe [place] CAD, moderately depressed left ventricular systolic function 05/18/2019 Surgical History CABG x3 with MEJIA to LAD by Tiago Gaytan MD, at [facility]. Postop Dx: Angina, CAD, non-STEMI, renal failure (on hemodialysis), COPD, tobacco abuse, alcohol abuse 05/27/2019 Surgical History Insertion nail intra medullary tibia by Deandre Mart III, MD. Postop Dx: Right distal tibia shaft fracture 03/13/2020 Surgical History Right tunneled venou s catheter replacement - IJ, by Lily Han MD, at [facility]. Postop Dx: ESRD 03/18/2020 Surgical History Hallux (plantar) amp utation, excision debridement diabetic ft ulcer, R ft and plantar 2nd toe by Rafa Ghosh DPM, at [facility]. Postop Dx: Postop Dx: 1) R hallux wet gangrene; 2) Diabetic R forefoot plantar ulcer; 3) Plantar 2nd toe ulcer w/necrotic tissue 05/13/2020 Surgical History R 5th toe amputation , 5th MT head resection, multiple soft-tissue / bony C&S specimens, 5th MT biopsy by Rafa Ghosh DPM, at [facility]. Postop Dx: 1) Diabetic foot ulcer; 2) Wet gangrene R 5th toe; 3) Osteomyelitis 5th toe 12/15/2020 Surgical History Bilateral foot ulcer debridemen t 02/01/2021 Surgical History Left below-knee ampu tation, revision and closure by Kim Garcia MD, at [facility]. Postop Dx: S/P open above-knee amputation for necrotizing fasciitis and gangrene of the foot 01/14/2022 Hospitalization History [facility] for left fo ot swelling. Discharge Dx: Left foot cellulitis with MRSA positive wound culture, s/p debridement 06/21/2018-06/25/2018 Hospitalization History [facility] for abnorma l labs. Discharge Dx: Dyspnea on exertion, presumed new-onset CHF, TELMA on CKD stage 3. 01/07/2019-01/10/2019 Hospitalization History [facility] for shortne ss of breath and abnormal lab, BNP 25,000, creatinine 5.8, troponin 0.32. Dx: NSTEMI and dyspnea. 05/13/2019-06/01/2019 Hospitalization History [facility] for fractur ed tibia. Discharge Dx: Closed fracture of right tibia and fibula 03/14/2020-03/16/2020 Hospitalization History [facility] for cellulitis of r ight foot 04/24/2020-04/26/2020 Hospitalization History [facility] for gangrene of toe of right foot 05/10/2020-05/20/2020 Hospitalization History [facility] for general ized weakness and low blood pressure. Discharge Dx: Symptomatic anemia, ESRD, chronic systolic heart failure, hypomagnesemia, diabetic foot ulcer, T2 DM, GERD, diabetic neuropathy, COPD, benign hypertension 12/13/2020-12/22/2020 Hospitalization History [facility] for hypoten barry. Discharge Dx: Sepsis, hypokalemia, dilated cardiomyopathy, debridement foot ulcer bilaterally and Grafix PL Prime 01/30/2021-02/03/2021 Hospitalization History [facility] - positive for COVI D. 07/24/2021 Hospitalization History [facility] for left fo ot swelling. Discharge DX: Necrotizing fasciitis of lower leg 01/09/2022-01/23/20[facility] Other Hospital course Narrative No data available for this section [place] [facility] Discharge instructions No data available for this section [place] Reason for referral (narrative)No reason for referral information availableMammoth Hospital Work Phone: Reason for visit NarrativeER Follow up/ [facility] Other Chief Complaint and Reason for Visit [...] knee amputation ) December 08, 2024 10:47am Chief Complaint Admit Date LAB WORK October 30, 2024 8:3 9pm LEFT SHOULDER December 03, 2024 12:57 pm room 1 December 03, 2024 1:21p m Abnormal EKG December 08, 2024 10:47 am alt loc December 30, 2024 4:39 am Chief Complaint Admit Date LAB WORK October 30, 2024 8:3 9pm LEFT SHOULDER December 03, 2024 12:57 pm room 1 December 03, 2024 1:21p m Abnormal EKG December 08, 2024 10:47 am alt loc December 30, 2024 4:39 am CAD/ASHD January 12, 2025 8:03a m Assessments No Assessments Information AvailableNo Assessments Information Available Reason for Referral Reason PT here with Eusebio Diagnosis 1 Physical debility (R 53.81) Diagnosis 2 Muscle weakness (gen eralized) (M62.81) Referral Organization [facility] Referring Provider First Name [facility] Referring Provider Last Name [place] Referring Provider Specialty [facility] Referred Provider Specialty Physical The rapist Referral Priority Routine General Notes Gabriela Addison 01/2022 05:49:31 PM >[facility] Physical Therapy [address] [place] [id number] referral faxed, their office will contact patient. Reason Needs evaluation for power chair (Physical therapy - [facility]) Will be starting PT with Eusebio - so please [facility] if possible Diagnosis 1 Muscle weakness (gen eralized) (M62.81) Diagnosis 2 Physical debility (R 53.81) Referral Organization [facility] Referring Provider First Name Erik Referring Provider Last Name [place] Referring Provider Specialty [facility] Referred Provider Specialty Enoch oakes Referral Priority Routine Advance Directives No Advanced [...] 12:34pm Legal POA No August 18 12:34pm Advance Directive Response Recorded Date/ Time Do you have a Healthcare Power of Nursing Home Director? No December 30, 2024 4:47am Summary Purpose Family History No Family History [...] from being in the hospital stay in Jul.No InformationChart UpdateCM SNF discharge.Discharged from [place], Discuss power wheelchair., Has not seen Endo for quite some time, due to having COVID and not wanting to go to appointments., Would like referral to PT here in our office.Medication Request from PharmacyNo InformationPatient is here for hospital follow up, Left BKArefillsRX requestThrush medicationChart UpdateRefills Care Teams (unrecognized sec tion and content) Team Status: Active Member Role Status Dates Dr. Kayleen Pederson MD Primary Care Provider Ac tive Team Status: Active Member Role Status Dates [...] December 08, 2024 End: December 08, 2024 Team Status: Inactive Member Role Status Dates Dr. Kayleen Pederson MD Primary Care Provider Ac tive Start: December 30, 2024 End: December 30, 2024 Dr. Poppy Singh DO Emergency Provider Active Start: December 30, 2024 End: December 30, 2024 Team Status: Active Member Role Status Dates ERIK [facility]- Primary Care Provider Active Team Status: Inactive Member Role Status Dates ERIK [facility]- Primary Care Provider Active KIM QUEVEDO DO Attending Provider Active Team Status: Inactive Member Role Status Dates ERIK [facility] Primary Care Provider Active ROBERTO QUEVEDO DO Attending Provider Active Team Status: Inactive Member Role Status Dates ERIK [facility]- Primary Care Provider Active Start: May 29, 2023 End: May 29, 2023 KIM QUEVEDO DO Attending Provider Active Start: May 29, 2023 End: May 29, 2023 Team Status: Inactive Member Role Status Dates ERIK [facility]- Primary Care Provider Active Start: July 05, 2023 End: July 05, 2023 KIM QUEVEDO DO Attending Provider Active Start: July 05, 2023 End: July 05, 2023 Team Status: Inactive Member Role Status Dates ERIK [facility]- Primary Care Provider Active Start: July 11, 2023 End: July 11, 2023 KIM QUEVEDO DO Attending Provider Active Start: July 11, 2023 End: July 11, 2023 Team Status: Inactive Member Role Status Dates ERIK [facility]- Primary Care Provider Active Start: October 03, 2023 End: October 03, 2023 KIM QUEVEDO DO Attending Provider Active Start: October 03, 2023 End: October 03, 2023 Team Status: Active Member Role/Relationship Status Dates Dr. Kayleen Pederson MD Primary Care Provider Ac tive Team Status: Active Member Role/Relationship Status Dates Dr. Bella Oneal MD Primary Care Provider Active Start: October 30, 2024 Dr. Gila PINTO MD Attending Provider Active Start: October 30, 2024 Dr. Gila PINTO MD Referring Provider Active Start: October 30, 2024 Team Status: Inactive Member Role/Relationship Status Dates Dr. Bella Oneal MD Primary Care Provider Active Start: November 06, 2024 End: November 06, 2024 Dr. Ton Vasquez MD Attending Provider Active Start: November 06, 2024 End: November 06, 2024 Team Status: Inactive Member Role/Relationship Status Dates Dr. Bella Oneal MD Referring Provider Active Start: December 03, 2024 End: December 03, 2024 Agusto Rogers MD Attending Provider Active St art: December 03, 2024 End: December 03, 2024 Team Status: Inactive Member Role/Relationship Status Dates Dr. Omer Arora MD Attending Provider Active S tart: December 03, 2024 End: December 03, 2024 Team Status: Inactive Member Role/Relationship Status Dates Dr. Tiburcio Osborne MD Attending Provider Active Start: December 08, 2024 End: December 08, 2024 Team Status: Inactive Member Role/Relationship Status Dates Dr. Kayleen Pederson MD Primary Care Provider Ac tive Start: December 30, 2024 End: December 30, 2024 Dr. Poppy Singh DO Emergency Provider Active Start: December 30, 2024 End: December 30, 2024 Team Status: Inactive Member Role/Relationship Status Dates Dr. Tiburcio Osborne MD Attending Provider Active Start: January 12, 2025 End: January 12, 2025 Dr. Tiburcio Osborne MD Referring Provider Active Start: January 12, 2025 End: January 12, 2025 Dr. Kayleen Pederson MD Primary Care Provider Ac tive Start: January 12, 2025 End: January 12, 2025 Goals (unrecognized section and content) Goals may be documented in a n alternate section (unrecognized sect ion and content) No Status Records FoundNo Status Records FoundNo Status Records FoundNo Status Records FoundNo Status Records Found INFORMATION SOURCE (unrecogn ized section and content) DATE CREATED AUTHOR 10/11/2023 [facility] DATE CREATED AUTHOR AUTHOR'S ORGANAMY ATION 10/11/2023 [facility] DATE CREATED AUTHOR AUTHOR'S ORGANIZ ATION 12/28/2024 [facility] DATE CREATED AUTHOR AUTHOR'S ORGANIZ ATION 01/21/2025 [facility] DATE CREATED AUTHOR AUTHOR'S ORGANIZ ATION 01/23/2025 [facility] FOR RECORDS PERTAINING TO PATIENTS WHO [...] BE BASED ON THE PRIMARY CLINICAL RECORDS. [facility]. provides no warranty or guarantee of the accuracy or completeness of information in this document.
--- OUTSIDE RECORDS SUMMARY | 2025-01-26 22:09 | XMS RPT_ITS | CCD ---
Author Organization [facility] Care Team Providers Care Shredder Tender Peat Name Role Phone KATHY BUCHANAN Primary Care Provider LIVIER LÓPEZ Attending Provider Erik Hargrove Unavailable Connie Montgomery Unavailable PHILLIP HARGROVE-MAYURI Meehan Primary Care Provider DO KIM QUEVEDO Attending Provider LINA HARGROVE ERIK N Primary Care Provider [phone] DO ROBERTO QUEVEDO Attending Provider DO KIM QUEVEDO Attending Provider LINA HARGROVE Primary Care Provider [phone] DO KIM QUEVEDO Attending Provider LINA HARGROVE Primary Care Provider DO KIM QUEVEDO Attending Provider DOUGLAS STYLES [...] Care Unavailable KIM QUEVEDO Attending Unavailable CIERA COMPUTER NETWORK SUPPORT SPECIALIST-FINAL INSPECTOR SHUTTLE, DANTE Primary Care Physician Kathy Bullock Unavailable Unavailable Dr. Bella Oneal MD Primary Care Provider [phone] Dr. Gila Bernal MD Attending Provider UnavailDr. Gila Potter MD Referring Provider Unavailbarbara Vasquez MD, Dr. Shultz Attending Provider Dr. Bella Oneal MD Referring Provider Agusto Rogers MD Attending Provider Dr. Omer Arora MD Attending Provider Dylon TO, Dr. Dey Attending Provider KIZZY MEDEROS DO Attending Unavailable DR AZIN FERRO MD Consulting Unavailable CIERALYNNE DAN, DANTE Primary Care Unavai labmary REFERRING, PHY WO ID Attending Unavailable CIERALISA DAN, DANTE Primary Care Shazia Pederson MD, Dr. Kayleen Martinez Primary Care [facility] er Dr. Poppy Singh DO Emergency Provider Dylon TO, Dr. Dey Referring Provider Gudla OLS Gila Attending Unavailable Gudla OLS Gila Referring Unavailable Mattawan, Bella Primary Care Unavailable Jm, Bella Primary Care Unavailable Ton Vasquez Attending Unavailable Jason Morris Attending Unavailable Jm, Bella Primary Care Unavailable Mattawan, Bella Attending Unavailable Jm, Bella Referring Unavailable Mattawan, Bella Primary Care Unavailable Jm, Bella Attending Unavailable Mattawan, Bella Referring Unavailable Mattawan, Bella Primary Care Unavailable Mattawan, Bella Primary Care Unavailable Jm, Bella Referring Unavailable Gretchen Rodriguez Attending Unavailable Mattawan, Bella Referring Unavailable Agusto Rogers Attending Unavailable [...] Consulting TRAMAINE Mathew DO Consulting Mitra VANG COMPUTER NETWORK SUPPORT SPECIALIST-FINAL INSPECTOR SHUTTLE, DANTE Primary Care Shazia FERRO MD, DR [...] 99 days May, Active Start: 05-28-2021 calcitriol 0.27197 mg oral c apsule (10 sources) Vitamin [...] 06-13-2020 Commode Bedsid e/Back 1 large bedside [id number] Does Not Apply as directed May, Active [...] te 150-1-25 MG-MG-MCG Given during dialysis, per [facility] Records. Oral once a day May, Active Start: 05-23-2020 Flash Glucose Scanning Reade r (Freestyle Bianca 2 Ryder) [facility] (6 sources) Start: 01-09-2024 Flash Glucose Scanning Ryder (Freestyle Bianca 2 Ryder) [facility] Active 0 .Route 1 5 January 09, 2024 1:59pm Controlled type 2 diabetes mellitus Type 2 diabetes mellitus without complications 1-2 times daily and as needed Start: 01-09-2024 Flash Glucose Scanning Ryder (Freestyle Bianca 2 Ryder) [facility] Active 0 .Route 1 January 09, 2024 1:59pm 1-2 times daily and as needed Start: 12-17-2023 End: 01-09-2024 Flash Glucose Scanning Reade r (Freestyle Bianca 2 Ryder) [facility] Discontinued 0 .Route 1 December 17, 2023 12:00am January 09, 2024 1:59pm Controlled type 2 diabetes mellitus Type 2 diabetes mellitus without complications 1-2 times daily and as needed Start: 12-17-2023 End: 01-09-2024 Flash Glucose Scanning Reade r (Freestyle Bianca 2 Ryder) misc Discontinued 0 .Route 1 December 17, [...] te 150-1-25 MG-MG-MCG Given during dialysis, per [facility] Records. Oral once a day May, Active [...] Start: 03-22-2022 take 1 capsule by mo [facility] twice daily Gabapentin 300 MG 1 capsule Oral Twice day for 90 days Mar, Active Start: 03-06-2022 take 1 capsule by mo [facility] twice daily Gabapentin 300 MG 1 capsule Oral Twice day for 90 days Feb, Active Start: 01-09-2022 take 1 capsule by mo [facility] once daily in the morning Gabapentin 300 MG 1 capsule Oral every morning for 90 days Dec, Active Start: 09-04-2021 take 1 capsule by mo ut once daily in the morning Start: 12-23-2020 take 1 capsule by mo [facility] once daily in the morning Gabapentin 300 [...] sources) Start: 05-17-2020 Iron Complex p er [facility] records rec'd Oral once a day May, [...] 1 tab Orally Once a day per [facility] med list Active melatonin 5 mg oral [...] 01-09-2024 Miscellaneous Medical Supply kit Active 1 [facility] As Directed 1 0 January 09, 2024 12:00am Incontinence of feces Full incontinence of feces bowel incontinence Bedpan Diagnosis: Fecal incontinence R15.9 Start: 01-09-2024 Miscellaneous Medical Supply kit Active 1 [facility] As Directed 6 0 January 09, 2024 12:00am Below-knee amputation of both lower extremities Nicholas lift sling Diagnosis: Below-knee amputation of both lower extremities S88.111D/S88.112D Start: 01-09-2024 Miscellaneous Medical Supply kit Active 1 [facility] As Directed 1 January 09, 2024 12:00am Bedpan Diagnosis: Fecal incontinence R15.9 Start: 01-09-2024 Miscellaneous Medical Supply kit Active 1 [facility] As Directed January 09, 2024 [...] by mouth f our times daily Nystatin 249551 UNIT/ML 5ml - swish and retain for [...] September 25, 2019 12:00am polyethylene glycol 3350 90408 mg powder for oral solution (7 sources) [...] Drug Class(es) Dates Sig (Normalized) Sig (Original) [id number] 200 actuat albuterol 0.09 mg/actuat metered dose [...] 12:00am August 23, 2021 12:56pm Epoetin Jannie 70691 UNIT/ML (19 sources) Start: 05-23-2020 Epoetin Jannie 2 0000 UNIT/ML Given during dialysis, per [facility] Records. Injection *please review for potential _update for e-prescription and drug interaction check* May, Not-Taking Start: 05-23-2020 Start: 05-23-2020 Epoetin Jannie 2 0000 UNIT/ML Given during dialysis, per [facility] Records. Injection *please review for potential _update [...] Coronary arteriosclerosis; Translations: [Atherosclerotic heart disease of [place] coronary artery without angina pectoris] Onset: 5 [...] W/ Contraston 01-12-2025 Echo Complete W/ Contrast [facility] [address] [place] [address] Echo Complete W/ Contrast 01/12/25 0511 MR#: [id number] Acct: [id number] Name: AGUSTO MONSALVE Rep #: [id number] : 1975 49 From: Tiburcio Osborne MD Attending Dr: Dr. Tiburcio Osborne MD Status: DEP CLI Ordering Dr: Tiburcio Osborne MD Date: 01/12/25 Location: [facility] Sex: M C Admitted: Reason [...] E' Dominique: 12.6 cm/sec Med Peak E' Dominique: 5.7 cm/sec MV A max dominique: 49.8 [...] MD Date Dictated: 01/12/25510 Date Transcribed: 01/19/25922 Bell Person: Signed Normal [facility] Final Surgical Pathology Rep rafy 01-05-2025 Final Surgical Pathology Report . Pathology Reports Accession: Collected Date/Time: Received Date/Time: Pathologist: [id number] 01/01/2025 14:30 EDT 01/04/2025 09:03 EDT NICK GARCIA MD Final Surgical Pathology Report DIAGNOSIS: ABDOMEN/MESENTERIC MASS, IMAGE GUIDED CORE BIOPSY: - ORGANIZING HEMATOMA - NEGATIVE FOR MALIGNANCY Comment: Sections show degenerated blood clot, fibrosis and hemosiderin deposition. No histologic evidence of any neoplasm. Correlation with clinical and radiological findings recommended. If this biopsy is it sales representative of the lesion, the findings would be consistent with an old hematoma. CLINICAL INFORMATION: MASS Procedure: IMAGE GUIDED ABDOMINAL BIOPSY SPECIMEN: A ABDOMEN/ MESENTERIC GROSS DESCRIPTION: All parts labelled with patient name and [id number] Received in formalin labeled mesenteric are 5 harp-pink to brown cores and fragments ranging in size from less than 0.1 to 1.0 cm. Smallest fragments may not survive processing. TS-1 Darcy Lott, Grossing Extractions Technologist/ Dr. Ricardo Jordan, Pathologist Performed by Darcy Lott MICROSCOPIC DESCRIPTION: The microscopic examination is performed, except in the case of Gross Only. Verified by Pathology Report verified by [facility] NICK GARCIA Sign out Date: 01/05/2025 14:54 Performing Lab: [facility], [address] [place] [address] Pathology Dept Disclaimer If ancillary studies were utilized, the following Laboratory Developed Test (LDT) disclaimer will apply: Under CLIA requirements, [facility] Pathology Laboratory is qualified to perform high complexity testing. For all ancillary stains, positive and negative controls stain appropriately. Performance characteristics of immunohistochemical and chromogenic in-situ hybridization tests have been determined by [facility] Pathology Laboratory. These tests are used for clinical purposes, They should not be regarded as investigational or for research. Normal [facility] Non-Aerospace Project Manager Cytology Reporton Non-Aerospace Project Manager Cytology Report . Pathology Reports Accession: Collected Date/Time: Received Date/Time: Pathologist: [id number] 01/01/2025 14:22 EDT 01/04/2025 08:09 EDT RICARDO JORDAN MD Non-Aerospace Project Manager Cytology Report CLINICAL INFORMATION: large cystic abdominal mass DIAGNOSTIC CATEGORY: NON DIAGNOSTIC. Acellular specimen. See biopsy report [id number]. SPECIMEN: Cystic abdominal mass FNA GROSS DESCRIPTION: # of Blocks: 1 # of Monolayers: 1 Volume (ml) 20 Color: fresh brown Verified by Pathology Report verified by [facility] Screened by: LOU DW Electronically signed by RICARDO JORDAN Sign-Out Date: 01/05/2025 14:10 Performing Lab: [facility], [address] [place] [address] Pathology Dept Disclaimer If ancillary studies were utilized, the following Laboratory Developed Test (LDT) disclaimer will apply: Under CLIA requirements, [facility] Pathology Laboratory is qualified to perform high complexity testing. For all ancillary stains, positive and negative controls stain appropriately. Performance characteristics of immunohistochemical and chromogenic in-situ hybridization tests have been determined by [facility] Pathology Laboratory. These tests are used for clinical purposes, They should not be regarded as investigational or for research. Normal [facility] Culture, Blood (WB)on 2024 CUB Blood cultures x2, from two different sites No growth in 5 days. Normal [facility] Comment on above: Performed By: #### L 100.0100, L500.4050 #### [facility] [address] [place], [place], [id number] CUB Blood cultures x2, from two different sites No growth in 5 days. Normal [facility] Comment on above: Performed By: #### L 100.0100, L500.4050 #### [facility] [address] [place], [address] IR BIOPSY ABDOMENon 01-04-20 25 IR BIOPSY ABDOMEN ORIGINAL HISTORY: ORDERING SYSTEM PROVIDED HISTORY: Reason for Exam: Mesenteric mass TECHNIQUE: This exam was performed according to our departmental dose-optimization program which includes automated exposure control, adjustment of the mA and/or kVp according to patient size and/or use of iterative reconstruction technique where applicable. PROCEDURE: 1. CT guided core biopsy, abdominal mass SENIOR WIND ENERGY CONSULTANT: Dr. Griffin SECURITY SYSTEMS ADMINISTRATOR: None MATERIALS: 18G core biopsy device ANESTHESIA: [...] cystic mass wall and submitted to pathology. [place] removed. Sterile dressing placed. COMPLICATIONS: None EBL: [...] 01/03/2025 4:42:27 PM Ordering Provider: BENNY Blair [facility] .Auto Diffon 01-01-2025 Basophil, Absolute 0.1 10 3/mcL Normal 0.0-0.3 [facility] Comment on above: Performed By: #### G FR, BMP #### [facility] [address] [place] [address] Basophils/100 WBC (Bld) 1.1 % Normal 0.0-2.5 [facility] Comment on above: Performed By: #### G FR, BMP #### [address] [address] Eosinophil, Absolute 0.1 10 3/mcL Normal 0.0-0.7 [facility] Comment on above: Performed By: #### G FR, BMP #### [address] [address] Eosinophils/100 WBC (Bld) 1.3 % Normal 0.0-6.0 [facility] Comment on above: Performed By: #### G FR, BMP #### [address] [address] Lymphocyte, Absolute 1.1 10 3/mcL Normal 0.9-4.3 [facility] Comment on above: Performed By: #### G FR, BMP #### [address] [address] Lymphocytes/100 WBC (Bld) 12.9 % Low 20.0-40.0 [facility] Comment on above: Performed By: #### G FR, BMP #### [address] [address] Monocyte, Absolute 0.5 10 3/mcL Normal 0.1-1.4 [facility] Comment on above: Performed By: #### G FR, BMP #### [address] [address] Monocytes/100 WBC (Bld) 6.0 % Normal 2.0-13.0 [facility] Comment on above: Performed By: #### G FR, BMP #### [address] [address] Neutrophils/100 WBC (Bld) 78.7 % High 50.0-75.0 [facility] Comment on above: Performed By: #### G FR, BMP #### [address] [address] .GFRon 01-01-2025 Estimated Glomerular Filtration Rate 21 ml/min/1.73sqm Normal [facility] Comment on above: Result Comment: Stages [...] Performed By: #### G , BMP #### [address] [address] .NEUABSon 01-01-2025 Neutrophil, Absolute 7.0 10 3/mcL Normal 2.3-8.1 [facility] Comment on above: Performed By: #### G , BMP #### [address] [address] BMPon 01-01-2025 BUN/Creatinine Ratio 6.7 ratio Low 10.0-22.0 [facility] Comment on above: Performed By: #### G , BMP #### [address] [address] Calcium [Mass/Vol] 9.1 mg/dL Normal 8.7-10.4 [facility] Comment on above: Performed By: #### G , BMP #### [address] [address] Chloride [Moles/Vol] 98 mmol/L Normal 98-110 [facility] Comment on above: Performed By: #### G , BMP #### [address] [address] CO2 [Moles/Vol] 21 mmol/L Low 22-32 [facility] Comment on above: Performed By: #### G FR, BMP #### [address] [address] Creatinine [Mass/Vol] 3.44 mg/dL High 0.60-1.40 [facility] Comment on above: Result Comment: Test ing performed on Bango analyzer using enzymatic creatinine methodology. Performed By: #### G FR, BMP #### [address] [address] Electrolyte Balance 17.0 mEq/L High 4.0-15.0 [facility] Comment on above: Performed By: #### G FR, BMP #### [address] [address] Glucose [Mass/Vol] 74 mg/dL Normal 70-110 [facility] Comment on above: Performed By: #### G FR, BMP #### [place] [id number] Potassium [Moles/Vol] 4.8 mmol/L Normal 3.5-5.0 [facility] Comment on above: Result Comment: Spec imen slightly hemolyzed. Performed By: #### Silvina FR, BMP #### [place] [id number] Sodium [Moles/Vol] 136 mmol/L Normal 136-145 [facility] Comment on above: Performed By: #### Silvina FR, BMP #### [place] [id number] Urea nitrogen [Mass/Vol] 23.0 mg/dL High 8.0-22.0 [facility] Comment on above: Performed By: #### Silvina FR, BMP #### [place] [id number] CBCon 01-01-2025 Erythrocyte distribution width (RBC) [Ratio] 17.6 % High 11.5-15.5 [facility] Comment on above: Order Comment: clott - 01/01/2025 05:02:34 EDT Performed By: #### G FR, BMP #### [place] [id number] Hematocrit (Bld) [Volume fraction] 28.2 % Low 40.0-52.0 [facility] Comment on above: Order Comment: clott - 01/01/2025 05:02:34 EDT Performed By: #### Silvina FR, BMP #### [place] [id number] Hgb 9.3 G/dL Low 13.0-17.5 [facility] Comment on above: Order Comment: clott ed - 01/01/2025 05:02:34 EDT Performed By: #### G FR, BMP #### [place] [id number] MCH (RBC) [Entitic mass] 29.1 pg Normal 27.0-33.0 [facility] Comment on above: Order Comment: clott ed - 01/01/2025 05:02:34 EDT Performed By: #### G FR, BMP #### [place] [address] MCHC 33.0 G/dL Normal 32.0-36.0 [facility] Comment on above: Order Comment: clott ed - 01/01/2025 05:02:34 EDT Performed By: #### Silvina FR, BMP #### [place] [id number] MCV (RBC) [Entitic vol] 88.2 fL Normal 81.0-100.0 [facility] Comment on above: Order Comment: clott ed - 01/01/2025 05:02:34 EDT Performed By: #### G FR, BMP #### [place] [id number] Platelet 234 10 3/mcL Normal 150-450 [facility] Comment on above: Order Comment: clott ed - 01/01/2025 05:02:34 EDT Performed By: #### G FR, BMP #### [place] [id number] Platelet mean volume (Bld) [Entitic vol] 6.9 fL Normal 6.4-10.5 [facility] Comment on above: Order Comment: clott ed - 01/01/2025 05:02:34 EDT Performed By: #### G FR, BMP #### [place] [id number] RBC 3.19 10 6/mcL Low 4.50-6.00 [facility] Comment on above: Order Comment: clott ed - 01/01/2025 05:02:34 EDT Performed By: #### G FR, BMP #### [facility] [address] [place] [address] WBC 8.9 10 3/mcL Normal 4.5-10.8 [facility] Comment on above: Order Comment: clott ed - 01/01/2025 05:02:34 EDT Performed By: #### G , BMP #### [facility] [address] [place] [address] LABORATORYOrdered By: Petrona Moreira on 01-01-2025 Blood Glucose Interventions Retest (01/01/25 9:34 PM) [facility] Work Phone: Glucose [Mass/Vol] 85 mg/dL Normal 70 - 110 mg/dL [facility] Work Phone: Glucose [Mass/Vol] 78 mg/dL Normal 70 - 110 mg/dL [facility] Work Phone: Blood Glucose Testing Reason Symptoms of hypoglycemia (01/01/25 9:15 PM) [facility] Work Phone: Glucose [Mass/Vol] 66 mg/dL Low 70 - 110 mg/dL [facility] Work Phone: Blood Glucose Testing Reason Symptoms of hypoglycemia (01/01/25 8:00 PM) [facility] Work Phone: LABORATORYOrdered By: Tamanna huizar on 01-01-2025 Blood Glucose Testing Reason Routine (01/01/25 11:01 AM) [facility] Work Phone: LABORATORYOrdered By: SYSTEM SYSTEM on [...] above: Interpretive Data: T esting performed on Bango analyzer using enzymatic creatinine methodology. Electrolyte Balance [...] 74 mg/dL Normal 70 - 110 mg/dL [facility] Potassium [Moles/Vol] 4.8 mmol/L Normal 3.5 - 5.0 mEq/L [facility] Comment on above: Result Comment: Spec [...] Comment on above: Interpretive Data: T he [employer] (CHEST, 1992, 102:312S-25S) recommended therapeutic range for oral anticoagulant therapy is: LOW RISK: Prophylaxis of venous thrombosis INR: 2.0-3.0 Treatment of pulmonary embolism 2.0-3.0 Prevention of systemic embolism 2.0-3.0 HIGH RISK: Mechanical prosthetic valves 2.5-3.5 Sodium [Moles/Vol] 136 mmol/L Normal 136 - 145 mEq/L [facility] Urea nitrogen [Mass/Vol] 23.0 mg/dL High 8.0 - 22.0 mg/dL [facility] Urea nitrogen/Creatinine [Mass ratio] 6.7 ratio Low 10.0 - 22.0 ratio [facility] MYCOon 01-01-2025 Mycoplasma IgG Positive Normal [facility] Comment on above: Result Comment: INTE RPRETATION OF MYCOPLASMA IgG BY EIA: Negative: No detectable M. pneumoniae IgG antibody. Positive: Mycoplasma pneumoniae IgG antibody Detected. Equivocal: Equivocal for IgG antibodies to Mycoplasma pneumoniae. Suggest repeat testing in 10-14 days. Performed By: #### G , BMP #### [facility] [address] [place] [address] No Panel InformationOrdered By: Petrona Moreira on 01-01-2025 Blood Glucose Interventions Administered food/juice, Retest (01/01/25 9:22 PM) [facility] Work Phone: Blood Glucose Interventions Administered food/juice, Retest (01/01/25 9:15 PM) [facility] Work Phone: No Panel Informationon 01-01 Culture Body Fluid Culture has been received in lab and is no growth to date. Routine cultures are held for 5 days. [facility] Work Phone: GS Sedimented No organisms seen. [facility] Work Phone: PROon 01-01-2025 INR Coag (PPP) [Relative time] 1.0 {INR} Normal [facility] Comment on above: Result Comment: The [employer] (CHEST, 1992, 102:312S-25S) recommended therapeutic range for oral anticoagulant therapy is: LOW RISK: Prophylaxis of venous thrombosis INR: 2.0-3.0 Treatment of pulmonary embolism 2.0-3.0 Prevention of systemic embolism 2.0-3.0 HIGH RISK: Mechanical prosthetic valves 2.5-3.5 Performed By: #### G FR, BMP #### [facility] [address] [place] [address] PT Coag (PPP) [Time] 11.4 s Normal 9.0-14.4 [facility] Comment on above: Result Comment: Effe ctive 01/27/08, Protime results may be affected by some antibiotics (i.e. Ciprofloxacin, Azithromycin, Bactrim) which may potentiate the action of oral anticoagulants, with further increases in Protime/INR. Performed By: #### G FR, BMP #### [address] [address] .Auto Diffon 12-31-2024 Basophil, Absolute 0.1 10 3/mcL Normal 0.0-0.3 [facility] Comment on above: Performed By: #### G FR, BMP #### [address] [address] Basophils/100 WBC (Bld) 0.9 % Normal 0.0-2.5 [facility] Comment on above: Performed By: #### G FR, BMP #### [address] [address] Eosinophil, Absolute 0.1 10 3/mcL Normal 0.0-0.7 [facility] Comment on above: Performed By: #### G FR, BMP #### [address] [address] Eosinophils/100 WBC (Bld) 0.7 % Normal 0.0-6.0 [facility] Comment on above: Performed By: #### G FR, BMP #### [address] [address] Lymphocyte, Absolute 1.0 10 3/mcL Normal 0.9-4.3 [facility] Comment on above: Performed By: #### G FR, BMP #### [address] [address] Lymphocytes/100 WBC (Bld) 6.7 % Low 20.0-40.0 [facility] Comment on above: Performed By: #### G FR, BMP #### [address] [address] Monocyte, Absolute 0.7 10 3/mcL Normal 0.1-1.4 [facility] Comment on above: Performed By: #### G FR, BMP #### [address] [address] Monocytes/100 WBC (Bld) 4.5 % Normal 2.0-13.0 [facility] Comment on above: Performed By: #### Silvina , BMP #### [address] [address] Neutrophils/100 WBC (Bld) 87.2 % High 50.0-75.0 [facility] Comment on above: Performed By: #### Silvina [place], BMP #### [address] [address] .GFRon 12-31-2024 Estimated Glomerular Filtration Rate 12 ml/min/1.73sqm Normal [facility] Comment on above: Result Comment: Stages [...] Performed By: #### Silvina , BMP #### [address] [address] .NEUABSon 12-31-2024 Neutrophil, Absolute 12.7 10 3/mcL High 2.3-8.1 [facility] Comment on above: Performed By: #### Silvina [place], BMP #### [address] [address] [facility] BUN/Creatinine Ratio 8.9 ratio Low 10.0-22.0 [facility] Comment on above: Performed By: #### Silvina , BMP #### [address] [address] Calcium [Mass/Vol] 8.6 mg/dL Low 8.7-10.4 [facility] Comment on above: Performed By: #### Silvina FR, BMP #### [address] [address] Chloride [Moles/Vol] 90 mmol/L Low 98-110 [facility] Comment on above: Performed By: #### Silvina [place], BMP #### [address] [address] CO2 [Moles/Vol] 24 mmol/L Normal 22-32 [facility] Comment on above: Performed By: #### Silvina QUINTANA, BMP #### [address] [address] Creatinine [Mass/Vol] 5.30 mg/dL High 0.60-1.40 [facility] MAIN Comment on above: Result Comment: Test ing performed on Bango analyzer using enzymatic creatinine methodology. Performed By: #### Silvina QUINTANA, BMP #### [address] [address] Electrolyte Balance 14.0 mEq/L Normal 4.0-15.0 [facility] MAIN Comment on above: Performed By: #### Silvina QUINTANA, BMP #### [address] [address] Glucose [Mass/Vol] 92 mg/dL Normal 70-110 [facility] MAIN Comment on above: Performed By: #### Silvina QUINTANA, BMP #### [address] [address] Potassium [Moles/Vol] 5.6 mmol/L High 3.5-5.0 [facility] MAIN Comment on above: Result Comment: Spec imen slightly hemolyzed. Performed By: #### Silvina QUINTANA, BMP #### [address] [address] Sodium [Moles/Vol] 128 mmol/L Low 136-145 [facility] MAIN Comment on above: Performed By: #### Silvina FR, BMP #### [address] [address] Urea nitrogen [Mass/Vol] 47.0 mg/dL High 8.0-22.0 [facility] MAIN Comment on above: Performed By: #### Silvina QUINTANA, BMP #### [address] [address] CBCon 12-31-2024 Erythrocyte distribution width (RBC) [Ratio] 17.6 % High 11.5-15.5 [facility] MAIN Comment on above: Performed By: #### G , BMP #### [place] [address] Hematocrit (Bld) [Volume fraction] 29.6 % Low 40.0-52.0 [facility] MAIN Comment on above: Performed By: #### G FR, BMP #### [place] [address] Hgb 9.8 G/dL Low 13.0-17.5 [facility] MAIN Comment on above: Performed By: #### G , BMP #### [place] [address] MCH (RBC) [Entitic mass] 29.1 pg Normal 27.0-33.0 [facility] MAIN Comment on above: Performed By: #### G , BMP #### [place] [address] MCHC 33.1 G/dL Normal 32.0-36.0 [facility] MAIN Comment on above: Performed By: #### G , BMP #### [place] [address] MCV (RBC) [Entitic vol] 87.8 fL Normal 81.0-100.0 [facility] MAIN Comment on above: Performed By: #### G , BMP #### [place] [address] Platelet 220 10 3/mcL Normal 150-450 [facility] MAIN Comment on above: Performed By: #### G FR, BMP #### [place] [address] Platelet mean volume (Bld) [Entitic vol] 7.1 fL Normal 6.4-10.5 [facility] MAIN Comment on above: Performed By: #### G FR, BMP #### [place] [address] RBC 3.38 10 6/mcL Low 4.50-6.00 [facility] MAIN Comment on above: Performed By: #### G FR, BMP #### [address] [address] WBC 14.6 10 3/mcL High 4.5-10.8 [facility] MAIN Comment on above: Performed By: #### G JENNIFER QUINTANA #### [address] [address] LABORATORYOrdered By: Ty Cancino on 12-31-2024 LDose [...] above: Interpretive Data: T esting performed on Bango analyzer using enzymatic creatinine methodology. Electrolyte Balance [...] Comment on above: Result Comment: [place] [phone] MRSA PCR Int See Below 2 *NA* [...] MRSA (PCR) Not detected Normal Not Detected [facility] MAIN Comment on above: Result Comment: [place] [phone] Performed By: #### M RSAPCR #### [place] [address] MRSA PCR Int See Below Normal [facility] MAIN Comment on above: Result Comment: Clinical [...] reproducible. Performed By: #### M RSAPCR #### [place] [address] MYCOon 12-31-2024 Mycoplasma IgM Negative [facility] MAIN Comment on above: Result Comment: INTE RPRETATION OF MYCOPLASMA IgM: Negative: IgM to M. pneumoniae Absent, or at levels below the assay limit of detection. Positive: IgM to M. pneumoniae Present. Invalid: Test results are invalid due to invalid internal control. Assay was performed in duplicate. Repeat testing is suggested if clinically indicated. Performed By: #### G FR, BMP #### [place] [address] VANCRon 12-31-2024 LDose Vancomycin: (random) See eMAR [facility] MAIN Comment on above: Performed By: #### V ANCR #### [place] [address] Vancomycin Lvl (random) 30.6 mcg/mL [facility] MAIN Comment on above: Performed By: #### V ANCR #### [place] [address] .Auto Diffon 12-30-2024 Basophil, Absolute 0.1 10 3/mcL Normal 0.0-0.3 [facility] MAIN Comment on above: Performed By: #### M RSAPCR #### [place] [address] Basophils/100 WBC (Bld) 0.5 % Normal 0.0-2.5 [facility] MAIN Comment on above: Performed By: #### M RSAPCR #### [place] [address] Eosinophil, Absolute 0.1 10 3/mcL Normal 0.0-0.7 [facility] MAIN Comment on above: Performed By: #### M RSAPCR #### [place] [address] Eosinophils/100 WBC (Bld) 0.4 % Normal 0.0-6.0 [facility] MAIN Comment on above: Performed By: #### M RSAPCR #### [place] [address] Lymphocyte, Absolute 0.7 10 3/mcL Low 0.9-4.3 [facility] MAIN Comment on above: Performed By: #### M RSAPCR #### [address] [address] Lymphocytes/100 WBC (Bld) 4.5 % Low 20.0-40.0 [facility] MAIN Comment on above: Performed By: #### M RSAPCR #### [address] [address] Monocyte, Absolute 0.6 10 3/mcL Normal 0.1-1.4 [facility] MAIN Comment on above: Performed By: #### M RSAPCR #### [address] [address] Monocytes/100 WBC (Bld) 3.8 % Normal 2.0-13.0 [facility] MAIN Comment on above: Performed By: #### M RSAPCR #### [address] [address] Neutrophils/100 WBC (Bld) 90.8 % High 50.0-75.0 [facility] MAIN Comment on above: Performed By: #### M RSAPCR #### [address] [address] .GFRon 12-30-2024 Estimated Glomerular Filtration Rate 13 ml/min/1.73sqm [facility] MAIN Comment on above: Result [...] Performed By: #### G FR, BMP #### [address] [address] .NEUABSon 12-30-2024 Neutrophil, Absolute 14.6 10 3/mcL High 2.3-8.1 [facility] MAIN Comment on above: Performed By: #### M RSAPCR #### [facility] [address] [place] [address] Lead EKGon 12-30-2024 12 Lead EKG [facility] Cardiovascular Services [address] [place] [address] 12 Lead EKG 12/30/24 0531 MR#: [id number] Acct: [id number] Name: AGUSTO MONSALVE Rep #: [id number] : 1975 49 From: Andrez Scott MD [...] undetermined Abnormal ECG Confirmed by Andrez Scott ([id number]), associate editor FLACO WING ([id number]) on 01/05/2025 11:45:19 AM Referred By: Confirmed By: Andrez Scott 01/05/25 1145 Date Andrez Scott MD CC: Kayleen Pederson MD; Dr. Poppy Singh DO Signed Normal [facility] Absolute lymphocyte countOrd ered By: Poppy Singh on 12-30-2024 Lymphocytes Auto (Unsp spec) [#/Vol] 0.98 10*3/uL 0.83-4.51 [facility] Absolute neutrophil countOrd ered By: Poppy Singh on 12-30-2024 Neutrophils (Bld) [#/Vol] 16.6 10*3/uL High 2.0-7.7 [facility] Anion gap in Serum or Plasma Ordered By: Poppy Singh on 12-30-2024 Anion gap [Moles/Vol] 16 mmol/L High 5-15 [facility] Automated lymphocyte count a s percentage of total leukocytesOrdered By: Poppy Singh on 12-30-2024 Lymphocytes/100 WBC Auto (Unsp spec) 5.1 % Low 19-41 [facility] BUN/Creatinine Ratio 9.2 ratio Low 10.0-22.0 [facility] MAIN Comment on above: Performed By: #### M RSAPCR #### [address] [address] Calcium [Mass/Vol] 8.7 mg/dL Normal 8.7-10.4 [facility] MAIN Comment on above: Performed By: #### M RSAPCR #### [address] [address] Chloride [Moles/Vol] 89 mmol/L Low 98-110 [facility] MAIN Comment on above: Performed By: #### M RSAPCR #### [address] [address] CO2 [Moles/Vol] 22 mmol/L Normal 22-32 [facility] MAIN Comment on above: Performed By: #### M RSAPCR #### [address] [address] Creatinine [Mass/Vol] 5.02 mg/dL High 0.60-1.40 [facility] MAIN Comment on above: Result Comment: Test ing performed on Bango analyzer using enzymatic creatinine methodology. Performed By: #### M RSAPCR #### [address] [address] Electrolyte Balance 17.0 mEq/L High 4.0-15.0 [facility] MAIN Comment on above: Performed By: #### M RSAPCR #### [address] [address] Glucose [Mass/Vol] 139 mg/dL High 70-110 [facility] MAIN Comment on above: Performed By: #### M RSAPCR #### [address] [address] Potassium [Moles/Vol] 5.2 mmol/L High 3.5-5.0 [facility] MAIN Comment on above: Performed By: #### M RSAPCR #### [address] [address] Sodium [Moles/Vol] 128 mmol/L Low 136-145 [facility] MAIN Comment on above: Performed By: #### M RSAPCR #### [facility] [address] [place] [address] Urea nitrogen [Mass/Vol] 46.0 mg/dL High 8.0-22.0 [facility] MAIN Comment on above: Performed By: #### M RSAPCR #### [address] [address] BUN/creatinine ratioOrdered By: Poppy Singh on 12-30-2024 Urea nitrogen/Creatinine [Mass ratio] 8.7 mg/mg Low 10-20 [facility] Basophil percentageOrdered B y: Poppy Singh on 12-30-2024 Basophils/100 WBC (Bld) 0.4 % 0-1 [facility] Bedside Glucoseon 12-30-2024 FINGERSTICK GLU 183 mg/dL High 74-106 [facility] Comment on above: Result Comment: FABIAN FOSTER OF PATIENT CARE PER NURSING PROTOCOL Performed By: #### L 501.080 #### [facility] Laboratory [address], [address] Bilirubin, totalOrdered By: Poppy Singh on 12-30-2024 Bilirubin [Mass/Vol] 0.54 mg/dL 0.00-1.30 [facility] Blood cultureOrdered By: Renetta Singh on 12-30-2024 Bacteria identified Cx Nom (Bld) No growth in 5 days. [facility] Bacteria identified Cx Nom (Bld) No growth in 5 days. [facility] CBCon 12-30-2024 Erythrocyte distribution width (RBC) [Ratio] 17.1 % High 11.5-15.5 [facility] MAIN Comment on above: Performed By: #### M RSAPCR #### [address] [address] Hematocrit (Bld) [Volume fraction] 29.9 % Low 40.0-52.0 [facility] MAIN Comment on above: Performed By: #### M RSAPCR #### [place] [address] Hgb 9.8 G/dL Low 13.0-17.5 [facility] MAIN Comment on above: Performed By: #### M RSAPCR #### [place] [address] MCH (RBC) [Entitic mass] 28.6 pg Normal 27.0-33.0 [facility] MAIN Comment on above: Performed By: #### M RSAPCR #### [place] [address] MCHC 32.7 G/dL Normal 32.0-36.0 [facility] MAIN Comment on above: Performed By: #### M RSAPCR #### [place] [address] MCV (RBC) [Entitic vol] 87.2 fL Normal 81.0-100.0 [facility] MAIN Comment on above: Performed By: #### M RSAPCR #### [place] [address] Platelet 217 10 3/mcL Normal 150-450 [facility] MAIN Comment on above: Performed By: #### M RSAPCR #### [place] [address] Platelet mean volume (Bld) [Entitic vol] 6.9 fL Normal 6.4-10.5 [facility] MAIN Comment on above: Performed By: #### M RSAPCR #### [place] [address] RBC 3.43 10 6/mcL Low 4.50-6.00 [facility] MAIN Comment on above: Performed By: #### M RSAPCR #### [place] [id number] WBC 16.1 10 3/mcL High 4.5-10.8 [facility] MAIN Comment on above: Performed By: #### M RSAPCR #### [place] [address] CBC W/Diff, Automatedon 12-13 Absolute Lymph 0.98 X10 3/uL Normal 0.83-4.51 [facility] Comment on above: Performed By: #### L 100.0100, L500.4050 #### [facility] Laboratory [address] [place], [address] Absolute Neut 16.6 X10 3/uL High 2.0-7.7 [facility] Comment on above: Performed By: #### L 100.0100, L500.4050 #### [facility] [address] [place], [address] Basophils/100 WBC (Bld) 0.4 % Normal 0-1 [facility] Comment on above: Performed By: #### L 100.0100, L500.4050 #### [facility] [address] [place], [address] Eosinophils/100 WBC (Bld) 0.7 % Normal 0-5 [facility] Comment on above: Performed By: #### L 100.0100, L500.4050 #### [facility] [address] [place], [address] Erythrocyte distribution width (RBC) [Ratio] 15.9 % High 11.6-14.6 [facility] Comment on above: Performed By: #### L 100.0100, L500.4050 #### [facility] [address] [place], [address] Hematocrit (Bld) [Volume fraction] 30.5 % Low 40-54 [facility] Comment on above: Performed By: #### L 100.0100, L500.4050 #### [facility] [address] [place], [address] Hemoglobin (Bld) [Mass/Vol] 9.9 g/dL Low 13.0-16.5 [facility] Comment on above: Performed By: #### L 100.0100, L500.4050 #### [facility] [address] [place], [address] IG% 1.300 High 0.0-0.9 [facility] Comment on above: Result Comment: IG% - Immature Granulocytes (promyelocytes, myelocytes and metamyelocytes) > 1% indicates that a LEFT SHIFT is Present. Performed By: #### L 100.0100, L500.4050 #### [facility] [address] [place], [address] Lymphocytes/100 WBC (Bld) 5.1 % Low 19-41 [facility] Comment on above: Performed By: #### L 100.0100, L500.4050 #### [facility] [address] [place], [address] MCH (RBC) [Entitic mass] 28.9 pg Normal 27.0-32.0 [facility] Comment on above: Performed By: #### L 100.0100, L500.4050 #### [facility] [address] [place], [address] MCHC (RBC) [Mass/Vol] 32.5 g/dL Normal 32-36 [facility] Comment on above: Performed By: #### L 100.0100, L500.4050 #### [facility] [address] [place], [address] MCV (RBC) [Entitic vol] 89.2 fL Normal 80-94 [facility] Comment on above: Performed By: #### L 100.0100, L500.4050 #### [facility] [address] [place], [address] Monocytes/100 WBC (Bld) 5.6 % Normal 0-10 [facility] Comment on above: Performed By: #### L 100.0100, L500.4050 #### [facility] [address] [place], [address] Neutrophils/100 WBC (Bld) 86.9 % High 47-70 [facility] Comment on above: Performed By: #### L 100.0100, L500.4050 #### [facility] [address] [place], [address] Nucleated RBC (Bld) [#/Vol] 0 10*3/uL Normal 0-5 [facility] Comment on above: Performed By: #### L 100.0100, L500.4050 #### [facility] [address] [place], [address] Platelet mean volume (Bld) [Entitic vol] 9.1 fL Normal 6.2-12.0 [facility] Comment on above: Performed By: #### L 100.0100, L500.4050 #### [facility] [address] [place], [address] Platelets (Bld) [#/Vol] 217 10*3/uL Normal 150-450 [facility] Comment on above: Performed By: #### L 100.0100, L500.4050 #### [facility] [address] [place], [address] RBC (Bld) [#/Vol] 3.42 10*6/uL Low 4.6-6.2 [facility] Comment on above: Performed By: #### L 100.0100, L500.4050 #### [facility] [address] [place], [address] RDW SD 51.8 fl High 35.1-43.9 [facility] Comment on above: Performed By: #### L 100.0100, L500.4050 #### [facility] [address] [place], [address] WBC (Bld) [#/Vol] 19.1 10*3/uL High 4.4-11.0 [facility] Comment on above: Performed By: #### L 100.0100, L500.4050 #### [facility] [address] [place], [address] CO2 (BldV) [Moles/Vol]Ordere d By: Ppopy Singh on 12-30-2024 CO2 [Moles/Vol] 34 mmol/L High 23-33 [facility] CT Chest, Abd, Pelvis WO Con ton 12-30-2024 CT Chest, Abd, Pelvis WO Cont [facility] Imaging Services [address] [place] [address] CT Chest, Abd, Pelvis WO Cont MR#: [id number] Acct: [id number] Name: AGUSTO MONSALVE Rep #: [id number] : 1975 M 49 From: Latisha meehan MD PCP: Kayleen Pederson MD Status: REG ER Study: CT Chest, Abd, Pelvis WO Cont Date of Exam: Exam# [id number] Ordering Dr: Poppy Singh DO PROCEDURE: CT [...] containing umbilical hernia without incarceration. [facility] CC: Kayleen Pederson MD; Dr. Poppy Singh DO Bell Person: Signed Normal [facility] Carbon dioxide, total [Moles /volume] in Central venous bloodOrdered By: Poppy Singh on 12-30-2024 CO2 [Moles/Vol] 25.8 mmol/L 21.0-32.0 [facility] Chest 1 View (Portable)on Chest 1 View (Portable) [facility] Imaging Services [address] [place] [address] Chest 1 View (Portable) MR#: [id number] Acct: [id number] Name: AGUSTO MONSALVE Rep #: [id number] : 1975 M 49 From: Latisha meehan MD PCP: Kayleen Pederson MD Status: REG ER Study: Chest 1 View (Portable) Date of Exam: 12/30/24 Exam# [id number] Ordering Dr: Poppy Singh DO PROCEDURE: CHEST [...] atelectatic pulmonary changes. Unchanged cardiomegaly. Reading Location: [place] [address] CC: Kayleen Pederson MD; Dr. Poppy Singh DO Bell Person: Signed Normal [facility] Chloride assayOrdered By: Lukas Singh on 12-30-2024 Chloride [Moles/Vol] 86 mmol/L Low 98-108 [facility] Comprehensive Metabolic Prof ilon 12-30-2024 Albumin [Mass/Vol] 4.3 g/dL Normal 3.5-5.0 [facility] Comment on above: Performed By: #### L 100.0100, L500.4050 #### [facility] Laboratory [address] [place], [address] Albumin/Globulin [Mass ratio] 1.4 {ratio} Normal 0.9-2.4 [facility] Comment on above: Performed By: #### L 100.0100, L500.4050 #### [facility] [address] [place], [address] ALK PHOS 173 U/L High 40-129 [facility] Comment on above: Performed By: #### L 100.0100, L500.4050 #### [facility] Laboratory [address] [place], [address] ALT [Catalytic activity/Vol] 7 U/L Normal <=46 [facility] Comment on above: Performed By: #### L 100.0100, L500.4050 #### [facility] [address] [place], [address] AST [Catalytic activity/Vol] 11 U/L Normal <=37 [facility] Comment on above: Performed By: #### L 100.0100, L500.4050 #### [facility] Laboratory [address] [place], [address] Bilirubin [Mass/Vol] 0.54 mg/dL Normal 0.00-1.30 [facility] Comment on above: Performed By: #### L 100.0100, L500.4050 #### [facility] [address] [place], [address] BUN/CRE 8.7 RATIO Low 10-20 [facility] Comment on above: Performed By: #### L 100.0100, L500.4050 #### [facility] Laboratory [address] [place], [address] Calcium [Mass/Vol] 8.9 mg/dL Normal 7.6-11.0 [facility] Comment on above: Performed By: #### L 100.0100, L500.4050 #### [facility] [address] [place], [address] Chloride [Moles/Vol] 86 mmol/L Low 98-108 [facility] Comment on above: Performed By: #### L 100.0100, L500.4050 #### [facility] [address] [place], [address] CO2 [Moles/Vol] 25.8 mmol/L Normal 21.0-32.0 [facility] Comment on above: Performed By: #### L 100.0100, L500.4050 #### [facility] [address] [place], [address] Creatinine [Mass/Vol] 4.76 mg/dL High 0.70-1.20 [facility] Comment on above: Performed By: #### L 100.0100, L500.4050 #### [facility] [address] [place], [address] ECRCL 20.11 ml/min Low 50-250 [facility] Comment on above: Performed By: #### L 100.0100, L500.4050 #### [facility] [address] [place], [address] GAP 16 High 5-15 [facility] Comment on above: Performed By: #### L 100.0100, L500.4050 #### [facility] [address] [place], [address] GFR/1.73 sq M.predicted among non-blacks MDRD (S/P/Bld) [Vol rate/Area] 14 mL/min/{1.73_m2} Low >60 [facility] Comment on above: Result Comment: mL/m in/1.73m2 CKD-EPI Creatinine Equation (2020) Performed By: #### L 100.0100, L500.4050 #### [facility] [address] [place], [address] Globulin (S) [Mass/Vol] 3.0 g/dL Normal 2.2-4.2 [facility] Comment on above: Performed By: #### L 100.0100, L500.4050 #### [facility] [address] [place], [address] Glucose [Mass/Vol] 179 mg/dL High 70-99 [facility] Comment on above: Performed By: #### L 100.0100, L500.4050 #### [facility] [address] [place], [address] Potassium [Moles/Vol] 4.9 mmol/L Normal 3.3-5.1 [facility] Comment on above: Performed By: #### L 100.0100, L500.4050 #### [facility] [address] [place], [address] Sodium [Moles/Vol] 128 mmol/L Low 133-145 [facility] Comment on above: Performed By: #### L 100.0100, L500.4050 #### [facility] [address] [place], [address] T PROT 7.2 g/dL Normal 5.9-8.4 [facility] Comment on above: Performed By: #### L 100.0100, L500.4050 #### [facility] [address] [place], [address] Urea nitrogen [Mass/Vol] 41 mg/dL High 4-19 [facility] Comment on above: Performed By: #### L 100.0100, L500.4050 #### [facility] [address] [place], [address] Emergency Department Summary on 12-30-2024 Emergency Department Summary [facility] Medical Records Department [address] [place] [address] Emergency Department Summary 12/30/24 MR#: [id number] Acct: [id number] Name: AGUSTO MONSALVE Rep #: [id number] : 1975 49 From: Poppy Singh DO [...] left thigh it was diagnosed with melanoma. [facility] Medical History Left shoulder pain Sleep [...] ea 01/09/24 Unknown Rx (FreeStyle Bianca 2 Ryder) flash glucose sensor (FreeStyle #1 ea 01/09/24 [...] 11/24/24 Unknow (more content not included)... Normal [facility] Eosinophil percentageOrdered By: Poppy Singh on 12-30-2024 Eosinophils/100 WBC (Bld) 0.7 % 0-5 [facility] Erythrocyte distribution wid th ratioOrdered By: Poppy Singh on 12-30-2024 Erythrocyte distribution width (RBC) [Ratio] 15.9 % High 11.6-14.6 [facility] Erythrocyte distribution wid th standard deviationOrdered By: Poppy Singh on 12-30-2024 Erythrocyte distribution width (RBC) [Ratio] 51.8 fl High 35.1-43.9 [facility] Glomerular filtration rate ( GFR) estimation/1.73 sq m using serum, plasma, or whole bOrdered By: Poppy Singh on 12-30-2024 GFR/1.73 sq M.predicted among non-blacks MDRD (S/P/Bld) [Vol rate/Area] 14 mL/min/{1.73_m2} Low >60 [facility] Comment on above: mL/min/1.73m2 CKD-EP I Creatinine Equation (2020) [facility] deOrdered By: Poppy Singh on 12-30-2024 Glucose [Mass/Vol] 183 mg/dL High 74-106 [facility] Comment on above: MANAGEMENT OF PATIEN T CARE PER NURSING PROTOCOL Hematocrit Auto (Bld) [Volum e fraction]Ordered By: Poppy Singh on 12-30-2024 Hematocrit (Bld) [Volume fraction] 30.5 % Low 40-54 [facility] Hemoglobin measurementOrdere d By: Poppy Singh on 12-30-2024 Hemoglobin (Bld) [Mass/Vol] 9.9 g/dL Low 13.0-16.5 [facility] Immature granulocytes/100 WB C Auto (Bld)Ordered By: Poppy Singh on 12-30-2024 Immature granulocytes/100 WBC (Bld) 1.300 % High 0.0-0.9 [facility] Comment on above: IG% - Immature Granu [...] above: Interpretive Data: T esting performed on Bango analyzer using enzymatic creatinine methodology. Electrolyte Balance [...] ng/L Male: 0-54 ng/L Testing performed on [email or web address] analyzer using direct chemiluminescent technology. Urea nitrogen [...] Lactic Acid Lvl 0.7 mmol/L Normal 0.5-2.2 [facility] Comment on above: Performed By: #### M RSAPCR #### [address] [address] Laboratory - Chemistry and C hemistry - challengeOrdered By: Poppy Singh on 12-30-2024 AST [Catalytic activity/Vol] 11 U/L <38 [facility] Lactic Acidon 12-30-2024 Lactate [Moles/Vol] 1.1 mmol/L Normal 0.0-2.0 [facility] Comment on above: Order Comment: Y Performed By: #### L 503.6005 #### [facility] [address] [place], [address] Lactic acid measurementOrder ed By: Poppy Singh on 12-30-2024 Lactate [Moles/Vol] 1.1 mmol/L 0.0-2.0 [facility] MCV (mean corpuscular volume ) determinationOrdered By: Poppy Singh on 12-30-2024 MCV (RBC) [Entitic vol] 89.2 fL 80-94 [facility] MGon 12-30-2024 Magnesium [Mass/Vol] 2.6 mg/dL High 1.6-2.4 [facility] Comment on above: Performed By: #### M RSAPCR #### [address] [address] Mean corpuscular hemoglobin (MCH) determinationOrdered By: Poppy Singh on 12-30-2024 MCH (RBC) [Entitic mass] 28.9 pg 27.0-32.0 [facility] Mean corpuscular hemoglobin concentration (MCHC) determinationOrdered By: Poppy Singh on 12-30-2024 MCHC (RBC) [Mass/Vol] 32.5 g/dL 32-36 [facility] Mean platelet volume determi nationOrdered By: Poppy Singh on 12-30-2024 Platelet mean volume (Bld) [Entitic vol] 9.1 fL 6.2-12.0 [facility] Monocyte percentageOrdered B y: Poppy Singh on 12-30-2024 Monocytes/100 WBC (Bld) 5.6 % 0-10 [facility] Neutrophil percentageOrdered By: Poppy Singh on 12-30-2024 Neutrophils/100 WBC (Bld) 86.9 % High 47-70 [facility] No Panel InformationOrdered By: Poppy Singh on 12-30-2024 Blood Gas Sample Site Not entered [facility] Blood Gas Specimen Type KEVIN [facility] Oxygen Delivery Device Cannula [facility] Nucleated red blood cell per centageOrdered By: Poppy Singh on 12-30-2024 Nucleated RBC/100 WBC (Bld) [Ratio] 0 % 0-5 [facility] Platelet countOrdered By: Lukas Singh on 12-30-2024 Platelets (Bld) [#/Vol] 217 10*3/uL 150-450 [facility] Potassium measurement (mass/ volume)Ordered By: Poppy Singh on 12-30-2024 Potassium (Unsp spec) [Mass/Vol] 4.9 mmol/L 3.3-5.1 [facility] RBC Auto (Bld) [#/Vol]Ordere d By: Poppy Singh on 12-30-2024 RBC (Bld) [#/Vol] 3.42 10*6/uL Low 4.6-6.2 [facility] Serum creatinine measurement (mass/volume)Ordered By: Poppy Singh on 12-30-2024 Creatinine [Mass/Vol] 4.76 mg/dL High 0.70-1.20 [facility] Serum globulin measurementOr dered By: Poppy Singh on 12-30-2024 Globulin (S) [Mass/Vol] 3.0 g/dL 2.2-4.2 [facility] Serum glucose measurement (m ass/volume)Ordered By: Poppy Singh on 12-30-2024 Glucose [Mass/Vol] 179 mg/dL High 70-99 [facility] Serum or plasma alanine martinez otransferase (ALT) measurementOrdered By: Poppy Singh on 12-30-2024 ALT [Catalytic activity/Vol] 7 U/L <47 [facility] Serum or plasma albumin zainab urement (mass/volume)Ordered By: Poppy Singh on 12-30-2024 Albumin [Mass/Vol] 4.3 g/dL 3.5-5.0 [facility] Serum or plasma albumin/glob ulin mass ratioOrdered By: Poppy Singh on 12-30-2024 Albumin/Globulin [Mass ratio] 1.4 {ratio} 0.9-2.4 [facility] Serum or plasma alkaline robert sphatase measurementOrdered By: Poppy Singh on 12-30-2024 ALP [Catalytic activity/Vol] 173 U/L High 40-129 [facility] Serum or plasma calcium zainab urement (mass/volume)Ordered By: Poppy Singh on 12-30-2024 Calcium [Mass/Vol] 8.9 mg/dL 7.6-11.0 [facility] Serum or plasma urea nitroge n measurement (mass/volume)Ordered By: Poppy Singh on 12-30-2024 Urea nitrogen [Mass/Vol] 41 mg/dL High 4-19 [facility] Sodium levelOrdered By: Anant Singh on 12-30-2024 Sodium [Moles/Vol] 128 mmol/L Low 133-145 [facility] TROPHSon 12-30-2024 High Sensitivity Troponin I 12 ng/L Normal 0-54 [facility] Comment on above: Result Comment: High Sensitive Troponin I Reference Ranges: Female: 0-34 ng/L Male: 0-54 ng/L Testing performed on [email or web address] analyzer using direct chemiluminescent technology. Performed By: #### M RSAPCR #### [address] [address] Total proteinOrdered By: Renetta Singh on 12-30-2024 Protein [Mass/Vol] 7.2 g/dL 5.9-8.4 [facility] Venous Blood Gason Blood Gas Type KEVIN Normal [facility] Comment on above: Performed By: #### L 100.0100, L500.4050 #### [facility] [address] [place] [address]. [place], [address] CO2 [Moles/Vol] 34 mmol/L High 23-33 [facility] Comment on above: Performed By: #### L 100.0100, L500.4050 #### [facility] [address] [place], [address] FI02 2.0 Normal [facility] Comment on above: Performed By: #### L 100.0100, L500.4050 #### [facility] [address] [place], [address] HCO3 (Bld) [Moles/Vol] 33 mmol/L High 22-26 [facility] Comment on above: Performed By: #### L 100.0100, L500.4050 #### [facility] [address] [place], [address] O2 Delivery Dev Cannula Normal [facility] Comment on above: Performed By: #### L 100.0100, L500.4050 #### [facility] [address] [place], [address] SITE Not entered Normal [facility] Comment on above: Performed By: #### L 100.0100, L500.4050 #### [facility] [address] [place], [address] VBG BE 9 mmol/L High -1.0-3.5 [facility] Comment on above: Performed By: #### L 100.0100, L500.4050 #### [facility] [address] [place], [address] VBG pCO2 43.8 mmHg Normal 41-51 [facility] Comment on above: Performed By: #### L 100.0100, L500.4050 #### [facility] [address] [place], [address] VBG pH 7.48 High 7.32-7.42 [facility] Comment on above: Performed By: #### L 100.0100, L500.4050 #### [facility] [address] [place], [address] VBG PO2 39 mmHg Normal 25-40 [facility] Comment on above: Performed By: #### L 100.0100, L500.4050 #### [facility] [address] [place], [address] VBG SO2 76 High 50-70 [facility] Comment on above: Performed By: #### L 100.0100, L500.4050 #### [facility] [address] [place], [place], [address] Venous blood base excess eduardo surementOrdered By: Poppy Singh on 12-30-2024 Base excess Calc (BldV) [Moles/Vol] 9 mmol/L High -1.0-3.5 [facility] Venous blood bicarbonate eduardo surementOrdered By: Poppy Singh on 12-30-2024 HCO3 (Bld) [Moles/Vol] 33 mmol/L High 22-26 [facility] Venous blood oxygen saturati on measurementOrdered By: Poppy Singh on 12-30-2024 Oxygen saturation in Blood 76 % High 50-70 [facility] Venous blood pH measurementO rdered By: Poppy Singh on 12-30-2024 pH (BldV) 7.48 [pH] High 7.32-7.42 [facility] Venous blood partial pressur e of carbon dioxide measurementOrdered By: Poppy Singh on 12-30-2024 CO2 (BldV) [Partial pressure] 43.8 mm[Hg] 41-51 [facility] Venous blood partial pressur e of oxygen measurementOrdered By: Poppy Singh on 12-30-2024 Oxygen (BldV) [Partial pressure] 39 mm[Hg] 25-40 [facility] White blood cell (WBC) count Ordered By: Poppy Singh on 12-30-2024 WBC (Bld) [#/Vol] 19.1 10*3/uL High 4.4-11.0 [facility] Cardiology Visit Reporton Cardiology Visit Report [facility] [address] [place] [address] OFFICE VISIT Date of Service: 12/08/24 MR#: [id number] Acct: [id number] Name: AGUSTO MONSALVE Rep #: [id number] : 1975 Provider: Dr. Tiburcio Osborne MD Age/Sex: 49/M Location: [facility] Status: Signed HPI HPI History of Present Illness Details: This gentleman has been referred to us for establishing cardiac care. Patient has a complex past medical history. 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 Patient denies any chest pains. He has [...] Source NIBP Intake Visit Reasons: Abnormal EKG Six Color Press Operator Required: No Accompanied by: Self Is [...] ea 01/09/24 12/08/24 Rx (FreeStyle Bianca 2 Ryder) flash glucose sensor (FreeStyle #1 ea 01/09/24 [...] you fallen in the past year?: No [facility] Medical History (Updated 12/08/24 @ 12:[address] 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 Normal [facility] Orthopedic Visit Reporton Orthopedic Visit Report [facility] [address] [place] [address] OFFICE VISIT Date of Service: 12/03/24 MR#: [id number] Acct: [id number] Name: AGUSTO MONSALVE Rep #: [id number] : 1975 Provider: Dr. Agusto rivera MD Age/Sex: 49/M Location: [facility] Status: Signed Intake Vital Signs 02/09/24 15:14 [...] ea 01/09/24 12/03/24 Rx (FreeStyle Bianca 2 Ryder) flash glucose sensor (FreeStyle #1 ea 01/09/24 [...] niece's husb (more content not included)... Normal [facility] Shoulder min 2 Viewson 12-03 Shoulder min 2 Views [facility] [address], [place] [address] Shoulder min 2 Views MR#: [id number] Acct: [id number] Name: AGUSTO MONSALVE Rep #: [id number] : 1975 M 49 From: Kirk Poole MD PCP: Status: DEP AMB Study: Shoulder min 2 Views Date of Exam: 12/03/24 Exam# [id number] Ordering Dr: Agusto Rogers MD PROCEDURE: SHOULDER [...] Very mild acromioclavicular joint osteoarthrosis. Reading Location: [id number] CC: Dr. Agusto Rogers MD Bell Person: Signed Normal [facility] Absolute lymphocyte countOrd ered By: Ton Vasquez on 11-06-2024 Lymphocytes Auto (Unsp spec) [#/Vol] 1.39 10*3/uL 0.83-4.51 [facility] Absolute neutrophil countOrd ered By: Ton Vasquez on 11-06-2024 Neutrophils (Bld) [#/Vol] 6.9 10*3/uL 2.0-7.7 [facility] Automated lymphocyte count a s percentage of total leukocytesOrdered By: Ton Vasquez on 11-06-2024 Lymphocytes/100 WBC Auto (Unsp spec) 15.4 % Low 19-41 [facility] BUNon 11-06-2024 Urea nitrogen [Mass/Vol] 49 mg/dL High - [facility] Comment on above: Performed By: #### L 501.5600, L100.0100, L501.1000 #### [facility] [address] [place], [address] Urea nitrogen [Mass/Vol] 14 mg/dL Normal 10-31 [facility] Comment on above: Performed By: #### L 501.1000 #### [facility] [address] [place], [address] Basophil percentageOrdered B y: Ton Torresnav on 11-06-2024 Basophils/100 WBC (Bld) 0.8 % 0-1 [facility] CBC W/Diff, Automatedon 10-14 Absolute Lymph 1.39 X10 3/uL Normal 0.83-4.51 [facility] Comment on above: Performed By: #### L 501.5600, L100.0100, L501.1000 #### [facility] [address] [place], [address] Absolute Neut 6.9 X10 3/uL Normal 2.0-7.7 [facility] Comment on above: Performed By: #### L 501.5600, L100.0100, L501.1000 #### [facility] [address] [place], [address] Basophils/100 WBC (Bld) 0.8 % Normal 0-1 [facility] Comment on above: Performed By: #### L 501.5600, L100.0100, L501.1000 #### [facility] [address] [place], [address] Eosinophils/100 WBC (Bld) 1.2 % Normal 0-5 [facility] Comment on above: Performed By: #### L 501.5600, L100.0100, L501.1000 #### [facility] [address] [place], [address] Erythrocyte distribution width (RBC) [Ratio] 16.4 % High 11.6-14.6 [facility] Comment on above: Performed By: #### L 501.5600, L100.0100, L501.1000 #### [facility] [address] [place], [address] Hematocrit (Bld) [Volume fraction] 36.0 % Low 40-54 [facility] Comment on above: Performed By: #### L 501.5600, L100.0100, L501.1000 #### [facility] [address] [place], [address] Hemoglobin (Bld) [Mass/Vol] 11.4 g/dL Low 13.0-16.5 [facility] Comment on above: Performed By: #### L 501.5600, L100.0100, L501.1000 #### [facility] [address] [place], [address] IG% 0.400 Normal 0.0-0.9 [facility] Comment on above: Result Comment: IG% - Immature Granulocytes (promyelocytes, myelocytes and metamyelocytes) > 1% indicates that a LEFT SHIFT is Present. Performed By: #### L 501.5600, L100.0100, L501.1000 #### [facility] [address] [place], [address] Lymphocytes/100 WBC (Bld) 15.4 % Low 19-41 [facility] Comment on above: Performed By: #### L 501.5600, L100.0100, L501.1000 #### [facility] [address] [place], [address] MCH (RBC) [Entitic mass] 29.5 pg Normal 27.0-32.0 [facility] Comment on above: Performed By: #### L 501.5600, L100.0100, L501.1000 #### [facility] [address] [place], [address] MCHC (RBC) [Mass/Vol] 31.7 g/dL Low 32-36 [facility] Comment on above: Performed By: #### L 501.5600, L100.0100, L501.1000 #### [facility] [address] [place], [address] MCV (RBC) [Entitic vol] 93.0 fL Normal 80-94 [facility] Comment on above: Performed By: #### L 501.5600, L100.0100, L501.1000 #### [facility] [address] [place], [address] Monocytes/100 WBC (Bld) 5.5 % Normal 0-10 [facility] Comment on above: Performed By: #### L 501.5600, L100.0100, L501.1000 #### [facility] [address] [place], [address] Neutrophils/100 WBC (Bld) 76.7 % High 47-70 [facility] Comment on above: Performed By: #### L 501.5600, L100.0100, L501.1000 #### [facility] [address] [place], [address] Nucleated RBC (Bld) [#/Vol] 0 10*3/uL Normal 0-5 [facility] Comment on above: Performed By: #### L 501.5600, L100.0100, L501.1000 #### [facility] [address] [place], [address] Platelet mean volume (Bld) [Entitic vol] 9.6 fL Normal 6.2-12.0 [facility] Comment on above: Performed By: #### L 501.5600, L100.0100, L501.1000 #### [facility] [address] [place], [address] Platelets (Bld) [#/Vol] 234 10*3/uL Normal 150-450 [facility] Comment on above: Performed By: #### L 501.5600, L100.0100, L501.1000 #### [facility] [address] [place], [address] RBC (Bld) [#/Vol] 3.87 10*6/uL Low 4.6-6.2 [facility] Comment on above: Performed By: #### L 501.5600, L100.0100, L501.1000 #### [facility] [address] [place], [address] RDW SD 54.6 fl High 35.1-43.9 [facility] Comment on above: Performed By: #### L 501.5600, L100.0100, L501.1000 #### [facility] [address] [place], [address] WBC (Bld) [#/Vol] 9.1 10*3/uL Normal 4.4-11.0 [facility] Comment on above: Performed By: #### L 501.5600, L100.0100, L501.1000 #### [facility] [address] [place], [address] Eosinophil percentageOrdered By: Ton Vasquez on 11-06-2024 Eosinophils/100 WBC (Bld) 1.2 % 0-5 [facility] Erythrocyte distribution wid th ratioOrdered By: Ton Vasquez on 11-06-2024 Erythrocyte distribution width (RBC) [Ratio] 16.4 % High 11.6-14.6 [facility] Erythrocyte distribution wid th standard deviationOrdered By: Ton Vasquez on 11-06-2024 Erythrocyte distribution width (RBC) [Ratio] 54.6 fl High 35.1-43.9 [facility] Hematocrit Auto (Bld) [Volum e fraction]Ordered By: Ton Vasquez on 11-06-2024 Hematocrit (Bld) [Volume fraction] 36.0 % Low 40-54 [facility] Hemoglobin measurementOrdere d By: Ton Vasquez on 11-06-2024 Hemoglobin (Bld) [Mass/Vol] 11.4 g/dL Low 13.0-16.5 [facility] Immature granulocytes/100 WB C Auto (Bld)Ordered By: Ton Vasquez on 11-06-2024 Immature granulocytes/100 WBC (Bld) 0.400 % 0.0-0.9 [facility] Comment on above: IG% - Immature Granu locytes (promyelocytes, myelocytes and metamyelocytes) > 1% indicates that a LEFT SHIFT is Present. MCV (mean corpuscular volume ) determinationOrdered By: Ton Vasquez on 11-06-2024 MCV (RBC) [Entitic vol] 93.0 fL 80-94 [facility] Mean corpuscular hemoglobin (MCH) determinationOrdered By: Ton Vasquez on 11-06-2024 MCH (RBC) [Entitic mass] 29.5 pg 27.0-32.0 [facility] Mean corpuscular hemoglobin concentration (MCHC) determinationOrdered By: Ton Vasquez on 11-06-2024 MCHC (RBC) [Mass/Vol] 31.7 g/dL Low 32-36 [facility] Mean platelet volume determi nationOrdered By: Ton Vasquez on 11-06-2024 Platelet mean volume (Bld) [Entitic vol] 9.6 fL 6.2-12.0 [facility] Monocyte percentageOrdered B y: Ton Vasquez on 11-06-2024 Monocytes/100 WBC (Bld) 5.5 % 0-10 [facility] Neutrophil percentageOrdered By: Ton Vasquez on 11-06-2024 Neutrophils/100 WBC (Bld) 76.7 % High 47-70 [facility] Nucleated red blood cell per centageOrdered By: Ton Vasquez on 11-06-2024 Nucleated RBC/100 WBC (Bld) [Ratio] 0 % 0-5 [facility] Platelet countOrdered By: Jules Vasquez on 11-06-2024 Platelets (Bld) [#/Vol] 234 10*3/uL 150-450 [facility] Potassiumon 11-06-2024 Potassium [Moles/Vol] 5.2 mmol/L High 3.3-5.1 [facility] Comment on above: Performed By: #### L 501.5600, L100.0100, L501.1000 #### [facility] [address] [place], [address] Potassium measurement (mass/ volume)Ordered By: Ton Vasquez on 11-06-2024 Potassium (Unsp spec) [Mass/Vol] 5.2 mmol/L High 3.3-5.1 [facility] RBC Auto (Bld) [#/Vol]Ordere d By: Ton Vasquez on 11-06-2024 RBC (Bld) [#/Vol] 3.87 10*6/uL Low 4.6-6.2 [facility] Serum or plasma urea nitroge n measurement (mass/volume)Ordered By: Ton Vasquez on 11-06-2024 Urea nitrogen [Mass/Vol] 14 mg/dL 4-19 [facility] White blood cell (WBC) count Ordered By: Ton Vasquez on 11-06-2024 WBC (Bld) [#/Vol] 9.1 10*3/uL 4.4-11.0 [facility] Absolute lymphocyte countOrd ered By: Gila Bernal on 10-30-2024 Lymphocytes Auto (Unsp spec) [#/Vol] 1.24 10*3/uL 0.83-4.51 [facility] Absolute neutrophil countOrd ered By: Gila Bernal on 10-30-2024 Neutrophils (Bld) [#/Vol] 7.4 10*3/uL 2.0-7.7 [facility] Anion gap in Serum or Plasma Ordered By: Gila Bernal on 10-30-2024 Anion gap [Moles/Vol] 15 mmol/L 5-15 [facility] Automated lymphocyte count a s percentage of total leukocytesOrdered By: Gila Bernal on 10-30-2024 Lymphocytes/100 WBC Auto (Unsp spec) 13.0 % Low 19-41 [facility] BUN/creatinine ratioOrdered By: Gila Bernal on 10-30-2024 Urea nitrogen/Creatinine [Mass ratio] 6.1 mg/mg Low 10-20 [facility] Basophil percentageOrdered B y: Gila Bernal on 10-30-2024 Basophils/100 WBC (Bld) 0.6 % 0-1 [facility] Bilirubin, totalOrdered By: Gila Bernal on 10-30-2024 Bilirubin [Mass/Vol] 0.49 mg/dL 0.00-1.30 [facility] Carbon dioxide, total [Moles /volume] in Central venous bloodOrdered By: Gila Bernal on 10-30-2024 CO2 [Moles/Vol] 28.0 mmol/L 21.0-32.0 [facility] Chloride assayOrdered By: Rich Bernal on 10-30-2024 Chloride [Moles/Vol] 92 mmol/L Low 98-108 [facility] Eosinophil percentageOrdered By: Gila Bernal on 10-30-2024 Eosinophils/100 WBC (Bld) 1.3 % 0-5 [facility] Erythrocyte distribution wid th ratioOrdered By: Gila Bernal on 10-30-2024 Erythrocyte distribution width (RBC) [Ratio] 17.0 % High 11.6-14.6 [facility] Erythrocyte distribution wid th standard deviationOrdered By: Gila Bernal on 10-30-2024 Erythrocyte distribution width (RBC) [Ratio] 57.1 fl High 35.1-43.9 [facility] Glomerular filtration rate ( GFR) estimation/1.73 sq m using serum, plasma, or whole bOrdered By: Gila Bernal on 10-30-2024 GFR/1.73 sq M.predicted among non-blacks MDRD (S/P/Bld) [Vol rate/Area] 23 mL/min/{1.73_m2} Low >60 [facility] Comment on above: mL/min/1.73m2 CKD-EP I Creatinine Equation (2020) Hematocrit Auto (Bld) [Volum e fraction]Ordered By: Gila Bernal on 10-30-2024 Hematocrit (Bld) [Volume fraction] 37.6 % Low 40-54 [facility] Hemoglobin measurementOrdere d By: Gila Bernal on 10-30-2024 Hemoglobin (Bld) [Mass/Vol] 11.8 g/dL Low 13.0-16.5 [facility] Immature granulocytes/100 WB C Auto (Bld)Ordered By: Gila Bernal on 10-30-2024 Immature granulocytes/100 WBC (Bld) 0.400 % 0.0-0.9 [facility] Comment on above: IG% - Immature Granu locytes (promyelocytes, myelocytes and metamyelocytes) > 1% indicates that a LEFT SHIFT is Present. Laboratory - Chemistry and C hemistry - challengeOrdered By: Gila Bernal on 10-30-2024 AST [Catalytic activity/Vol] 15 U/L <38 [facility] MCV (mean corpuscular volume ) determinationOrdered By: Gila Bernal on 10-30-2024 MCV (RBC) [Entitic vol] 93.8 fL 80-94 [facility] Mean corpuscular hemoglobin (MCH) determinationOrdered By: Gila Bernal on 10-30-2024 MCH (RBC) [Entitic mass] 29.4 pg 27.0-32.0 [facility] Mean corpuscular hemoglobin concentration (MCHC) determinationOrdered By: Gila Bernal on 10-30-2024 MCHC (RBC) [Mass/Vol] 31.4 g/dL Low 32-36 [facility] Mean platelet volume determi nationOrdered By: Gila Bernal on 10-30-2024 Platelet mean volume (Bld) [Entitic vol] 9.1 fL 6.2-12.0 [facility] Monocyte percentageOrdered B y: Gila Bernal on 10-30-2024 Monocytes/100 WBC (Bld) 7.2 % 0-10 [facility] Neutrophil percentageOrdered By: Gila Bernal on 10-30-2024 Neutrophils/100 WBC (Bld) 77.5 % High 47-70 [facility] Nucleated red blood cell per centageOrdered By: Gila Bernal on 10-30-2024 Nucleated RBC/100 WBC (Bld) [Ratio] 0 % 0-5 [facility] Platelet countOrdered By: Rich Bernal on 10-30-2024 Platelets (Bld) [#/Vol] 177 10*3/uL 150-450 [facility] Potassium measurement (mass/ volume)Ordered By: Gila Bernal on 10-30-2024 Potassium (Unsp spec) [Mass/Vol] 4.5 mmol/L 3.3-5.1 [facility] RBC Auto (Bld) [#/Vol]Ordere d By: Gila Bernal on 10-30-2024 RBC (Bld) [#/Vol] 4.01 10*6/uL Low 4.6-6.2 [facility] Serum creatinine measurement (mass/volume)Ordered By: Gila Bernal on 10-30-2024 Creatinine [Mass/Vol] 3.22 mg/dL High 0.70-1.20 [facility] Serum globulin measurementOr dered By: Gila Bernal on 10-30-2024 Globulin (S) [Mass/Vol] 2.5 g/dL 2.2-4.2 [facility] Serum glucose measurement (m ass/volume)Ordered By: Gila Bernal on 10-30-2024 Glucose [Mass/Vol] 257 mg/dL High 70-99 [facility] Serum or plasma alanine matrinez otransferase (ALT) measurementOrdered By: Gila Bernal on 10-30-2024 ALT [Catalytic activity/Vol] 9 U/L <47 [facility] Serum or plasma albumin zainab urement (mass/volume)Ordered By: Gila Bernal on 10-30-2024 Albumin [Mass/Vol] 4.6 g/dL 3.5-5.0 [facility] Serum or plasma albumin/glob ulin mass ratioOrdered By: Gila Bernal on 10-30-2024 Albumin/Globulin [Mass ratio] 1.8 {ratio} 0.9-2.4 [facility] Serum or plasma alkaline robert sphatase measurementOrdered By: Gila Bernal on 10-30-2024 ALP [Catalytic activity/Vol] 174 U/L High 40-129 [facility] Serum or plasma calcium zainab urement (mass/volume)Ordered By: Gila Bernal on 10-30-2024 Calcium [Mass/Vol] 9.3 mg/dL 7.6-11.0 [facility] Serum or plasma urea nitroge n measurement (mass/volume)Ordered By: Gila Bernal on 10-30-2024 Urea nitrogen [Mass/Vol] 20 mg/dL High 4-19 [facility] Sodium levelOrdered By: Mireille Bernal on 10-30-2024 Sodium [Moles/Vol] 135 mmol/L 133-145 [facility] Total proteinOrdered By: Chasity Bernal on 10-30-2024 Protein [Mass/Vol] 7.0 g/dL 5.9-8.4 [facility] White blood cell (WBC) count Ordered By: Gila Bernal on 10-30-2024 WBC (Bld) [#/Vol] 9.5 10*3/uL 4.4-11.0 [facility] .Auto Diffon 07-23-2024 Basophil, Absolute 0.0 10 3/mcL Normal 0.0-0.3 [facility] Comment on above: Performed By: #### G FR BMP #### [address] [address] Basophils/100 WBC (Bld) 0.1 % Normal 0.0-2.5 [facility] Comment on above: Performed By: #### G FR, BMP #### [facility] [address] [place] [address] Eosinophil, Absolute 0.0 10 3/mcL Normal 0.0-0.7 [facility] Comment on above: Performed By: #### G FR, BMP #### [facility] [address] [place] [address] Eosinophils/100 WBC (Bld) 0.0 % Normal 0.0-6.0 [facility] Comment on above: Performed By: #### G FR, BMP #### [facility] [address] [place] [address] Lymphocyte, Absolute 0.3 10 3/mcL Low 0.9-4.3 [facility] Comment on above: Performed By: #### G FR, BMP #### [facility] [address] [place] [address] Lymphocytes/100 WBC (Bld) 3.8 % Low 20.0-40.0 [facility] Comment on above: Performed By: #### G FR, BMP #### [address] [address] Monocyte, Absolute 0.1 10 3/mcL Normal 0.1-1.4 [facility] Comment on above: Performed By: #### G FR, BMP #### [address] [address] Monocytes/100 WBC (Bld) 0.8 % Low 2.0-13.0 [facility] Comment on above: Performed By: #### G FR, BMP #### [address] [address] Neutrophils/100 WBC (Bld) 95.3 % High 50.0-75.0 [facility] Comment on above: Performed By: #### G FR, BMP #### [address] [address] .GFRon 07-23-2024 GFR Non- 15 ml/min/1.73sqm Normal [facility] Comment on above: Result Comment: GFR [...] meters Performed By: #### V ANCR #### [address] [address] GFR 18 ml/min/1.73sqm Normal [facility] Comment on above: Result Comment: GFR [...] meters Performed By: #### V ANCR #### [address] [address] .NEUABSon 07-23-2024 Neutrophil, Absolute 8.5 10 3/mcL High 2.3-8.1 [facility] Comment on above: Performed By: #### Silvina [facility] #### [address] [address] BMPon 07-23-2024 BUN/Creatinine Ratio 10.0 ratio Normal 10.0-22.0 [facility] Comment on above: Performed By: #### V ANCR #### [address] [address] Calcium [Mass/Vol] 9.3 mg/dL Normal 8.7-10.4 [facility] Comment on above: Performed By: #### V ANCR #### [address] [address] Chloride [Moles/Vol] 98 mmol/L Normal 98-110 [facility] Comment on above: Performed By: #### V ANCR #### [address] [address] CO2 [Moles/Vol] 28 mmol/L Normal 22-32 [facility] Comment on above: Performed By: #### V ANCR #### [address] [address] Creatinine [Mass/Vol] 4.28 mg/dL High 0.60-1.40 [facility] Comment on above: Result Comment: Test ing performed on Bango analyzer using enzymatic creatinine methodology. Performed By: #### V ANCR #### [address] [address] Electrolyte Balance 13.0 mEq/L Normal 4.0-15.0 [facility] Comment on above: Performed By: #### V ANCR #### [address] [address] Glucose [Mass/Vol] 161 mg/dL High 70-110 [facility] Comment on above: Performed By: #### V ANCR #### [address] [address] Potassium [Moles/Vol] 4.5 mmol/L Normal 3.5-5.0 [facility] Comment on above: Performed By: #### V ANCR #### [address] [address] Sodium [Moles/Vol] 139 mmol/L Normal 136-145 [facility] Comment on above: Performed By: #### V ANCR #### [address] [address] Urea nitrogen [Mass/Vol] 43.0 mg/dL High 8.0-22.0 [facility] Comment on above: Performed By: #### V ANCR #### [address] [address] CBCon 07-23-2024 Erythrocyte distribution width (RBC) [Ratio] 18.0 % High 11.5-15.5 [facility] Comment on above: Performed By: #### G FR, BMP #### [place] [address] Hematocrit (Bld) [Volume fraction] 33.7 % Low 40.0-52.0 [facility] Comment on above: Performed By: #### G FR, BMP #### [place] [address] Hgb 11.1 G/dL Low 13.0-17.5 [facility] Comment on above: Performed By: #### G FR, BMP #### [place] [address] MCH (RBC) [Entitic mass] 29.9 pg Normal 27.0-33.0 [facility] Comment on above: Performed By: #### G FR, BMP #### [place] [address] MCHC 32.9 G/dL Normal 32.0-36.0 [facility] Comment on above: Performed By: #### G FR, BMP #### [place] [address] MCV (RBC) [Entitic vol] 90.8 fL Normal 81.0-100.0 [facility] Comment on above: Performed By: #### Silvina FR, BMP #### [place] [address] Platelet 198 10 3/mcL Normal 150-450 [facility] Comment on above: Performed By: #### G FR, BMP #### [place] [address] Platelet mean volume (Bld) [Entitic vol] 6.4 fL Normal 6.4-10.5 [facility] Comment on above: Performed By: #### G FR, BMP #### [place] [address] RBC 3.71 10 6/mcL Low 4.50-6.00 [facility] Comment on above: Performed By: #### G FR, BMP #### [place] [address] WBC 8.9 10 3/mcL Normal 4.5-10.8 [facility] Comment on above: Performed By: #### G FR, BMP #### [facility] [address] [place] [address] LABORATORYOrdered By: Charissa Rollins on 07-23-2024 Glucose [Mass/Vol] 174 mg/dL High 70 - 110 mg/dL [facility] Work Phone: LABORATORYOrdered By: Roberto Ott on 07-23-2024 Glucose [Mass/Vol] 143 mg/dL High 70 - 110 mg/dL [facility] Work Phone: LABORATORYOrdered By: Gisselle Zhao on 07-23-2024 Glucose [Mass/Vol] 218 mg/dL High 70 - 110 mg/dL [facility] Work Phone: LABORATORYOrdered By: Maribell Mckeon on 07-23-2024 Blood Glucose Testing Reason Routine (07/23/24 8:14 AM) [facility] Work Phone: LABORATORYOrdered By: SYSTEM SYSTEM on [...] above: Interpretive Data: T esting performed on Bango analyzer using enzymatic creatinine methodology. Electrolyte Balance [...] [Vol rate/Area] 18 ml/min/1.73sqm Invalid Interpretation Code [employer] S Comment on above: Interpretive Data: [...] [Vol rate/Area] 15 ml/min/1.73sqm Invalid Interpretation Code [employer] S Comment on above: Interpretive Data: [...] Basophil, Absolute 0.0 10 3/mcL Normal 0.0-0.3 [facility] Comment on above: Performed By: #### A ALFONSO, MG, CBC, CMP, GFR, ADIFF, TROPHS #### [address] [address] Basophils/100 WBC (Bld) 0.3 % Normal 0.0-2.5 [facility] Comment on above: Performed By: #### A ALFONSO, MG, CBC, CMP, GFR, ADIFF, TROPHS #### [address] [address] Eosinophil, Absolute 0.1 10 3/mcL Normal 0.0-0.7 [facility] Comment on above: Performed By: #### A ALFONSO, MG, CBC, CMP, GFR, ADIFF, TROPHS #### [address] [address] Eosinophils/100 WBC (Bld) 0.5 % Normal 0.0-6.0 [facility] Comment on above: Performed By: #### A ALFONSO, MG, CBC, CMP, GFR, ADIFF, TROPHS #### [address] [address] Lymphocyte, Absolute 0.2 10 3/mcL Low 0.9-4.3 [facility] Comment on above: Performed By: #### A ALFONSO, MG, CBC, CMP, GFR, ADIFF, TROPHS #### [address] [address] Lymphocytes/100 WBC (Bld) 1.6 % Low 20.0-40.0 [facility] Comment on above: Performed By: #### A ALFONSO, MG, CBC, CMP, GFR, ADIFF, TROPHS #### [address] [address] Monocyte, Absolute 0.1 10 3/mcL Normal 0.1-1.4 [facility] Comment on above: Performed By: #### A ALFONSO, MG, CBC, CMP, GFR, ADIFF, TROPHS #### [address] [address] Monocytes/100 WBC (Bld) 0.9 % Low 2.0-13.0 [facility] Comment on above: Performed By: #### A ALFONSO, MG, CBC, CMP, GFR, ADIFF, TROPHS #### [address] [address] Neutrophils/100 WBC (Bld) 96.7 % High 50.0-75.0 [facility] Comment on above: Performed By: #### A ALFONSO, MG, CBC, CMP, GFR, ADIFF, TROPHS #### [address] [address] Basophil, Absolute 0.0 10 3/mcL Normal 0.0-0.2 [facility] Comment on above: Performed By: #### G IRMA QU[place], CBC, ADIFF, ANEU, BMP, TROPHS #### [address] [address] Basophils/100 WBC (Bld) 0.1 % Normal 0.0-2.5 [facility] Comment on above: Performed By: #### G IRMA [place], CBC, ADIFF, ANEU, BMP, TROPHS #### [address] [address] Eosinophil, Absolute 0.2 10 3/mcL Normal 0.0-0.7 [facility] Comment on above: Performed By: #### IRMA DIAZ, CBC, ADIFF, ANEU, BMP, TROPHS #### [address] [address] Eosinophils/100 WBC (Bld) 2.4 % Normal 0.0-7.0 [facility] Comment on above: Performed By: #### IRMA DIAZ, CBC, ADIFF, ANEU, BMP, TROPHS #### [address] [address] Lymphocyte, Absolute 0.9 10 3/mcL Normal 0.9-4.3 [facility] Comment on above: Performed By: #### IRMA DIAZ, CBC, ADIFF, ANEU, BMP, TROPHS #### [address] [address] Lymphocytes/100 WBC (Bld) 8.1 % Low 20.0-40.0 [facility] Comment on above: Performed By: #### G IRAM QU[place], CBC, ADIFF, ANEU, BMP, TROPHS #### [address] [address] Monocyte, Absolute 0.6 10 3/mcL Normal 0.1-1.4 [facility] Comment on above: Performed By: #### G , IRMA, CBC, ADIFF, ANEU, BMP, TROPHS #### [address] [address] Monocytes/100 WBC (Bld) 5.9 % Normal 2.0-13.0 [facility] Comment on above: Performed By: #### G , IRMA, CBC, ADIFF, ANEU, BMP, TROPHS #### [address] [address] Neutrophils/100 WBC (Bld) 83.2 % High 50.0-75.0 [facility] Comment on above: Performed By: #### IRAM DIAZ, CBC, ADIFF, ANEU, BMP, TROPHS #### [address] [address] .GFRon 07-22-2024 GFR 23 ml/min/1.73sqm [facility] Comment on above: Result [...] Performed By: #### G FR, BMP #### [facility] [address] [place] [address] GFR Non- 19 ml/min/1.73sqm [facility] Comment on above: Result [...] Performed By: #### G FR, BMP #### [address] [address] GFR Non- 8 ml/min/1.73sqm [facility] Comment on above: Result [...] meters Performed By: #### M RSAPCR #### [address] [address] GFR 10 ml/min/1.73sqm [facility] Comment on above: Result [...] meters Performed By: #### M RSAPCR #### [facility] [address] [place] [address] GFR Non- 8 ml/min/1.73sqm [facility] Comment on above: Result Comment: GFR [...] QUINTANA, CBC, ADIFF, ANEU, BMP, TROPHS #### [place] [address] [place], [place] [address] GFR 9 ml/min/1.73sqm [facility] Comment on above: Result Comment: GFR [...] IRMA, CBC, ADIFF, ANEU, BMP, TROPHS #### [address] [address] .MDWon 07-22-2024 Monocyte Distribution Width Not tested Normal 0.00-20.00 [facility] Comment on above: Result Comment: IRMA testing unable to be performed on [id number] instrumentation. Performed By: #### G , W, CBC, ADIFF, ANEU, BMP, TROPHS #### [address] [address] .NEUABSon 07-22-2024 Neutrophil, Absolute 12.0 10 3/mcL High 2.3-8.1 [facility] Comment on above: Performed By: #### A ALFONSO, MG, CBC, CMP, GFR, ADIFF, TROPHS #### [address] [address] Neutrophil, Absolute 9.6 10 3/mcL High 2.3-8.1 [facility] Comment on above: Performed By: #### G , IRMA, CBC, ADIFF, ANEU, BMP, TROPHS #### [address] [address] BMPon 07-22-2024 BUN/Creatinine Ratio 9.4 ratio Low 10.0-22.0 [facility] Comment on above: Performed By: #### Silvina FR, BMP #### [address] [address] Calcium [Mass/Vol] 10.0 mg/dL Normal 8.7-10.4 [facility] Comment on above: Performed By: #### Silvina FR, BMP #### [address] [address] Chloride [Moles/Vol] 96 mmol/L Low 98-110 [facility] Comment on above: Performed By: #### G FR, BMP #### [address] [address] CO2 [Moles/Vol] 28 mmol/L Normal 22-32 [facility] Comment on above: Performed By: #### Silvina FR, BMP #### [address] [address] Creatinine [Mass/Vol] 3.51 mg/dL High 0.60-1.40 [facility] Comment on above: Result Comment: Test ing performed on Bango analyzer using enzymatic creatinine methodology. Performed By: #### Silvina QU[place]TANA BMP #### [address] [address] Electrolyte Balance 13.0 mEq/L Normal 4.0-15.0 [facility] Comment on above: Performed By: #### Silvina QUINTANA, BMP #### [address] [address] Glucose [Mass/Vol] 167 mg/dL High 70-110 [facility] Comment on above: Performed By: #### Silvina QUINTANA, BMP #### [address] [address] Potassium [Moles/Vol] 4.7 mmol/L Normal 3.5-5.0 [facility] Comment on above: Performed By: #### Silvina QUINTANA, BMP #### [address] [address] Sodium [Moles/Vol] 137 mmol/L Normal 136-145 [facility] Comment on above: Performed By: #### Silvina QUINTANA, BMP #### [address] [address] Urea nitrogen [Mass/Vol] 33.0 mg/dL High 8.0-22.0 [facility] Comment on above: Performed By: #### Silvina QUINTANA, BMP #### [address] [address] BUN/Creatinine Ratio 12 ratio Normal 7-27 [facility] Comment on above: Performed By: #### G , IRMA, CBC, ADIFF, ANEU, BMP, TROPHS #### [address] [address] Calcium [Mass/Vol] 9.0 mg/dL Normal 8.4-10.2 [facility] Comment on above: Performed By: #### Silvina QUINTANA, IRMA, CBC, ADIFF, ANEU, BMP, TROPHS #### [address] [address] Chloride [Moles/Vol] 94 mmol/L Low 98-107 [facility] Comment on above: Performed By: #### G IRMA QU[place], CBC, ADIFF, ANEU, BMP, TROPHS #### [address] [address] CO2 [Moles/Vol] 27 mmol/L Normal 22-29 [facility] Comment on above: Performed By: #### G IRMA QUINTA[place], CBC, ADIFF, ANEU, BMP, TROPHS #### [address] [address] Creatinine [Mass/Vol] 7.55 mg/dL High 0.70-1.30 [facility] Comment on above: Result Comment: Test ing performed on Tecogen Dimension EXL analyzer using a modified kinetic Janell technique. Performed By: #### IRMA DIAZ, CBC, ADIFF, ANEU, BMP, TROPHS #### [address] [address] Electrolyte Balance 11.0 mEq/L Normal 4.0-15.0 [facility] Comment on above: Performed By: #### IRMA DIAZ, ARMINDA, ADIFF, ANEU, BMP, TROPHS #### [address] [address] Glucose [Mass/Vol] 117 mg/dL High 70-105 [facility] Comment on above: Performed By: #### IRMA DIAZ, CBC, ADIFF, ANEU, BMP, TROPHS #### [address] [address] Potassium [Moles/Vol] 7.2 mmol/L Critically abnormal 3.5-5.1 [facility] Comment on above: Performed By: #### IRMA DIAZ, CBC, ADIFF, ANEU, BMP, TROPHS #### [address] [address] Sodium [Moles/Vol] 132 mmol/L Low 136-145 [facility] Comment on above: Performed By: #### IRMA DIAZ, CBC, ADIFF, ANEU, BMP, TROPHS #### [place] [address] [place], [place] [address] Urea nitrogen [Mass/Vol] 88 mg/dL High 7-18 [facility] Comment on above: Performed By: #### G IRMA QUINTANA, CBC, ADIFF, ANEU, BMP, TROPHS #### [place] [address] [place], [place] [address] CBCon 07-22-2024 Erythrocyte distribution width (RBC) [Ratio] 19.3 % High 11.5-15.5 [facility] Comment on above: Performed By: #### A ALFONSO, MG, CBC, CMP, GFR, ADIFF, TROPHS #### [address] [address] Hematocrit (Bld) [Volume fraction] 33.6 % Low 40.0-52.0 [facility] Comment on above: Performed By: #### A ALFONSO, MG, CBC, CMP, GFR, ADIFF, TROPHS #### [place] [id number] Hgb 11.2 G/dL Low 13.0-17.5 [facility] Comment on above: Performed By: #### A ALFONSO, MG, CBC, CMP, GFR, ADIFF, TROPHS #### [address] [address] MCH (RBC) [Entitic mass] 30.6 pg Normal 27.0-33.0 [facility] Comment on above: Performed By: #### A ALFONSO, MG, CBC, CMP, GFR, ADIFF, TROPHS #### [place] [id number] MCHC 33.2 G/dL Normal 32.0-36.0 [facility] Comment on above: Performed By: #### A ALFONSO, MG, CBC, CMP, GFR, ADIFF, TROPHS #### [place] [id number] MCV (RBC) [Entitic vol] 92.2 fL Normal 81.0-100.0 [facility] Comment on above: Performed By: #### A ALFONSO, MG, CBC, CMP, GFR, ADIFF, TROPHS #### [address] [address] Platelet 232 10 3/mcL Normal 150-450 [facility] Comment on above: Performed By: #### A ALFONSO, MG, CBC, CMP, GFR, ADIFF, TROPHS #### [address] [address] Platelet mean volume (Bld) [Entitic vol] 6.6 fL Normal 6.4-10.5 [facility] Comment on above: Performed By: #### A ALFONSO, MG, CBC, CMP, GFR, ADIFF, TROPHS #### [address] [address] RBC 3.65 10 6/mcL Low 4.50-6.00 [facility] Comment on above: Performed By: #### A ALFONSO, MG, CBC, CMP, GFR, ADIFF, TROPHS #### [address] [address] WBC 12.4 10 3/mcL High 4.5-10.8 [facility] Comment on above: Performed By: #### A ALFONSO, MG, CBC, CMP, GFR, ADIFF, TROPHS #### [place] [address] Erythrocyte distribution width (RBC) [Ratio] 16.5 % High 11.5-15.5 [facility] Comment on above: Performed By: #### G RIMA QUINTANA, CBC, ADIFF, ANEU, BMP, TROPHS #### [address] [address] Hematocrit (Bld) [Volume fraction] 31.1 % Low 40.0-52.0 [facility] Comment on above: Performed By: #### IRMA DIAZ, CBC, ADIFF, ANEU, BMP, TROPHS #### [address] [address] Hgb 10.4 G/dL Low 13.0-17.5 [facility] Comment on above: Performed By: #### IRMA DIAZ, CBC, ADIFF, ANEU, BMP, TROPHS #### [address] [address] MCH (RBC) [Entitic mass] 30.3 pg Normal 27.0-33.0 [facility] Comment on above: Performed By: #### G IRMA QUINTANA, CBC, ADIFF, ANEU, BMP, TROPHS #### [address] [address] MCHC 33.6 G/dL Normal 32.0-36.0 [facility] Comment on above: Performed By: #### G IRMA QUINTANA, CBC, ADIFF, ANEU, BMP, TROPHS #### [address] [address] MCV (RBC) [Entitic vol] 90.1 fL Normal 81.0-100.0 [facility] Comment on above: Performed By: #### IRMA DIAZ, CBC, ADIFF, ANEU, BMP, TROPHS #### [address] [address] Platelet 223 10 3/mcL Normal 150-450 [facility] Comment on above: Performed By: #### IRMA DIAZ, CBC, ADIFF, ANEU, BMP, TROPHS #### [address] [address] Platelet mean volume (Bld) [Entitic vol] 6.6 fL Normal 6.4-10.5 [facility] Comment on above: Performed By: #### IRMA DIAZ, CBC, ADIFF, ANEU, BMP, TROPHS #### [address] [address] RBC 3.45 10 6/mcL Low 4.50-6.00 [facility] Comment on above: Performed By: #### IRMA DIAZ, CBC, ADIFF, ANEU, BMP, TROPHS #### [address] [address] WBC 11.6 10 3/mcL High 4.5-10.8 [facility] Comment on above: Performed By: #### G FR, MDW, CBC, ADIFF, ANEU, BMP, TROPHS #### [place] [address] [place], [place] [address] [facility] Albumin Level 3.7 G/dL Normal 3.2-4.8 [facility] Comment on above: Performed By: #### M RSAPCR #### [address] [address] Albumin/Globulin [Mass ratio] 1.0 {ratio} Normal 0.9-1.6 [facility] Comment on above: Performed By: #### M RSAPCR #### [address] [address] ALP [Catalytic activity/Vol] 192 U/L High 38-126 [facility] Comment on above: Performed By: #### M RSAPCR #### [address] [address] ALT [Catalytic activity/Vol] 12 U/L Normal 12-55 [facility] Comment on above: Performed By: #### M RSAPCR #### [address] [address] AST [Catalytic activity/Vol] 11 U/L Normal 8-34 [facility] Comment on above: Performed By: #### M RSAPCR #### [address] [address] Bili Total 0.30 mg/dL Normal 0.20-1.20 [facility] Comment on above: Result Comment: Use of this assay is not recommended for patients undergoing treatment with eltrombopag due to the potential for falsely elevated results. Performed By: #### M RSAPCR #### [address] [address] BUN/Creatinine Ratio 11.9 ratio Normal 10.0-22.0 [facility] Comment on above: Performed By: #### M RSAPCR #### [address] [address] Calcium [Mass/Vol] 9.7 mg/dL Normal 8.7-10.4 [facility] Comment on above: Performed By: #### M RSAPCR #### [address] [address] Chloride [Moles/Vol] 92 mmol/L Low 98-110 [facility] Comment on above: Performed By: #### M RSAPCR #### [address] [address] CO2 [Moles/Vol] 25 mmol/L Normal 22-32 [facility] Comment on above: Performed By: #### M RSAPCR #### [address] [address] Creatinine [Mass/Vol] 7.17 mg/dL High 0.60-1.40 [facility] Comment on above: Result Comment: Test ing performed on Bango analyzer using enzymatic creatinine methodology. Performed By: #### M RSAPCR #### [address] [address] Electrolyte Balance 16.0 mEq/L High 4.0-15.0 [facility] Comment on above: Performed By: #### M RSAPCR #### [address] [address] Globulin 3.7 G/dL Normal 1.5-3.8 [facility] Comment on above: Performed By: #### M RSAPCR #### [address] [address] Glucose [Mass/Vol] 164 mg/dL High 70-110 [facility] Comment on above: Performed By: #### M RSAPCR #### [address] [address] Potassium [Moles/Vol] 7.1 mmol/L Critically abnormal 3.5-5.0 [facility] Comment on above: Performed By: #### M RSAPCR #### [address] [address] Sodium [Moles/Vol] 133 mmol/L Low 136-145 [facility] Comment on above: Performed By: #### M RSAPCR #### [address] [address] Total Protein 7.4 G/dL Normal 5.7-8.2 [facility] Comment on above: Performed By: #### M RSAPCR #### [facility] [address] [place] [address] Urea nitrogen [Mass/Vol] 85.0 mg/dL High 8.0-22.0 [facility] Comment on above: Performed By: #### M RSAPCR #### [facility] [address] [place] [address] CVFLURVon 07-22-2024 FLU A PCR Negative Normal Negative [facility] Comment on above: Performed By: #### C VFLURV #### [place] [address] FLU B PCR Negative Normal Negative [facility] Comment on above: Performed By: #### C VFLURV #### [place] [address] RSV PCR Negative Normal Negative [facility] Comment on above: Performed By: #### C VFLURV #### [place] [address] SARS-CoV-2 (COVID-19) RNA GLENN+probe Ql (Unsp spec) Negative Normal Negative [facility] Comment on above: Result Comment: Resu lts [...] results. Performed By: #### C VFLURV #### [address] [address] HEPACon 07-22-2024 Hep A IgM Ab Non-Reactive Normal Non-Reactiv e [facility] MAIN Comment on above: Performed By: #### M RSAPCR #### [place] [address] Hep A IgM Ab Int [facility] MAIN Comment on above: Result Comment: No s erological evidence of a current Hepatitis A infection. See Interp Performed By: #### M RSAPCR #### [place] [address] Hep B Core IgM Ab Non-Reactive Normal Non-Reacti v [facility] MAIN Comment on above: Performed By: #### M RSAPCR #### [place] [address] Hep B Core IgM Ab Int [facility] MAIN Comment on above: Result Comment: Samp les with a value < 0.80 Index are considered nonreactive (negative) for IgM antibodies to hepatitis B core antigen. See Interp Performed By: #### M RSAPCR #### [place] [address] Hep B Surf Ag Non-Reactive Normal Non-Reactiv [facility] MAIN Comment on above: Performed By: #### M RSAPCR #### [place] [address] Hep C Ab Non-Reactive Normal Non-Reactiv [facility] MAIN Comment on above: Performed By: #### M RSAPCR #### [place] [address] Hep C Ab Int [facility] MAIN Comment on above: Result [...] Interp Performed By: #### M RSAPCR #### [place] [address] LABORATORYOrdered By: SYSTEM SYSTEM on 07-22-2024 Calcium [Mass/Vol] 10.0 mg/dL Normal 8.7 - 10. 4 mg/dL AH ADM SS Chloride [Moles/Vol] 96 mmol/L Low 98 - 11 0 mEq/L AH ADM SS CO2 [Moles/Vol] 28 mmol/L Normal 22 - 32 mEq/L ADM SS Creatinine [Mass/Vol] 3.51 mg/dL High 0.60 - 1.40 mg/dL ADM SS Comment on above: Interpretive Data: T esting performed on Bango analyzer using enzymatic creatinine methodology. Electrolyte Balance 13.0 mEq/L Normal 4.0 - 15 .0 mEq/L ADM SS GFR/1.73 sq M.predicted among blacks MDRD (S/P/Bld) [Vol rate/Area] 23 ml/min/1.73sqm Invalid Interpretation Code [employer] S Comment on above: Interpretive Data: [...] [Vol rate/Area] 19 ml/min/1.73sqm Invalid Interpretation Code [employer] S Comment on above: Interpretive Data: [...] above: Interpretive Data: T esting performed on Bango analyzer using enzymatic creatinine methodology. Electrolyte Balance [...] [Vol rate/Area] 8 ml/min/1.73sqm Invalid Interpretation Code [employer] S Comment on above: Interpretive Data: [...] ng/L Male: 0-54 ng/L Testing performed on [email or web address] analyzer using direct chemiluminescent technology. Urea nitrogen [...] ng/L Male: 0-76 ng/L Testing performed on [email or web address] using a homogeneous sandwich chemiluminescent immunoassay based on [employer] technology. Urea nitrogen [Mass/Vol] 88 mg/dL High [...] Glucose Testing Reason Routine (07/22/24 8:11 AM) [facility] Work Phone: LABORATORYOrdered By: William Hayward on 07-22-2024 Blood Glucose Testing Reason Routine (07/22/24 3:45 AM) [facility] Work Phone: Glucose [Mass/Vol] 117 mg/dL High 70 - 110 mg/dL [facility] Work Phone: LABORATORYOrdered By: Elva Phillips on [...] MDW testing unable to be performed on [id number] instrumentation. RSV RNA GLENN+probe Ql (Resp) Negative [...] 07-22-2024 Magnesium [Mass/Vol] 3.3 mg/dL High 1.6-2.4 [facility] MAIN Comment on above: Performed By: #### A ALFONSO, MG, CBC, CMP, GFR, ADIFF, TROPHS #### [facility] [address] [place] [address] Magnesium [Mass/Vol] 3.2 mg/dL High 1.8-2.4 [facility] Comment on above: Performed By: #### M G #### [address] [address] PBNPon 07-22-2024 N-Terminal proBNP >[address] High 0-125 [facility] Comment on above: Performed By: #### C VFLURV #### [address] [address] TROPHSon 07-22-2024 High Sensitivity Troponin I 28 ng/L Normal 0-54 [facility] MAIN Comment on above: Result Comment: High Sensitive Troponin I Reference Ranges: Female: 0-34 ng/L Male: 0-54 ng/L Testing performed on [employer] IM analyzer using direct chemiluminescent technology. Performed By: #### A ALFONSO, MG, CBC, CMP, GFR, ADIFF, TROPHS #### [facility] [address] [place] [address] High Sensitivity Troponin I 27 ng/L Normal 0-76 [facility] Comment on above: Result Comment: High Sensitive Troponin I Reference Ranges: Female: 0-51 ng/L Male: 0-76 ng/L Testing performed on [email or web address] using a homogeneous sandwich chemiluminescent immunoassay based on [employer] technology. Performed By: #### G FR, MDW, CBC, ADIFF, ANEU, BMP, TROPHS #### [facility] [address] [place], [place] [address] XR CHEST 1 VIEWon 07-22-2024 XR CHEST [...] 07/22/2024 3:00:32 AM Ordering Provider: KIZZY MEDEROS [facility] 12 Lead EKGon 02-09-2024 12 Lead EKG [facility] Cardiovascular Services [address] [place] [address] 12 Lead EKG 02/09/24 1529 MR#: [id number] Acct: [id number] Name: AGUSTO MONSALVE Rep #: [id number] : 1975 48 From: Santos Posey MD [...] Abnormal ECG Confirmed by GIANNI TO, AFUA ([id number]), associate editor MOHAMUD RIVERA ([id number]) on 02/11/2024 2:27:40 PM Referred By: BB/WOOD Confirmed By:DANIELA POSEY MD 02/11/24 1427 Date Santos Posey MD CC: VB NET PROGRAMMER-Garrett Knight; Dr. Bella Oneal MD; Dr. Jason Morris MD Signed Normal [facility] Basic Metabolic Profile (BMP )on 02-09-2024 BUN/CRE 9.2 RATIO Low 10-20 [facility] Comment on above: Performed By: #### L 100.0100, L500.2500 #### [facility] Laboratory [address] [place], [address] CA,Total 8.5 mg/dL Normal 8.5-10.1 [facility] Comment on above: Performed By: #### L 100.0100, L500.2500 #### [facility] [address] [facility], [address] Chloride [Moles/Vol] 94 mmol/L Low 98-107 [facility] Comment on above: Performed By: #### L 100.0100, L500.2500 #### [facility] [address] [place], [address] CO2 [Moles/Vol] 23.0 mmol/L Normal 21.0-32.0 [facility] Comment on above: Performed By: #### L 100.0100, L500.2500 #### [facility] [address] [place], [address] Creatinine [Mass/Vol] 4.67 mg/dL High 0.70-1.30 [facility] Comment on above: Result Comment: The validity of the calculated GFR GFRAA in patients over 70 years has not been determined. Clinical correlation is essential. Performed By: #### L 100.0100, L500.2500 #### [facility] [address] [place], [address] ECRCL 19.70 ml/min Normal [facility] Comment on above: Performed By: #### L 100.0100, L500.2500 #### [facility] [address] [place], [address] EST GFR - AA 17 mL/min Low >60 [facility] Comment on above: Result Comment: Afri can Guatemalan GFR Calc Performed By: #### L 100.0100, L500.2500 #### [facility] [address] [place], [address] GAP 13 Normal 5-15 [facility] Comment on above: Performed By: #### L 100.0100, L500.2500 #### [facility] [address] [place], [address] GFR/1.73 sq M.predicted among non-blacks MDRD (S/P/Bld) [Vol rate/Area] 14 mL/min/{1.73_m2} Low >60 [facility] Comment on above: Result Comment: Non- GFR Calc Performed By: #### L 100.0100, L500.2500 #### [facility] [address] [place], [address] Glucose [Mass/Vol] 115 mg/dL High 74-106 [facility] Comment on above: Result Comment: Fast ing Glucose result from 100 to 125 mg/dL suggests IMPAIRED HOMEOSTASIS per A.D.A. criteria. Performed By: #### L 100.0100, L500.2500 #### [facility] [address] [place], [address] Potassium [Moles/Vol] 4.0 mmol/L Normal 3.5-5.1 [facility] Comment on above: Performed By: #### L 100.0100, L500.2500 #### [facility] [address] [place], [address] Sodium [Moles/Vol] 130 mmol/L Low 136-145 [facility] Comment on above: Performed By: #### L 100.0100, L500.2500 #### [facility] [address] [place], [address] Urea nitrogen [Mass/Vol] 43 mg/dL High 7-18 [facility] Comment on above: Performed By: #### L 100.0100, L500.2500 #### [facility] [address] [place], [address] CBC W/Diff, Automatedon 07-2 -2023 Absolute Lymph 0.97 X10 3/uL Normal 0.83-4.51 [facility] Comment on above: Performed By: #### L 100.0100, L500.2500 #### [facility] [address] [place], [address] Absolute Neut 5.2 X10 3/uL Normal 2.0-7.7 [facility] Comment on above: Performed By: #### L 100.0100, L500.2500 #### [facility] [address] [place], [address] Basophils/100 WBC (Bld) 0.6 % Normal 0-1 [facility] Comment on above: Performed By: #### L 100.0100, L500.2500 #### [facility] [address], [address] Eosinophils/100 WBC (Bld) 1.5 % Normal 0-5 [facility] Comment on above: Performed By: #### L 100.0100, L500.2500 #### [facility] [address] [place], [address] Erythrocyte distribution width (RBC) [Ratio] 19.2 % High 11.6-14.6 [facility] Comment on above: Performed By: #### L 100.0100, L500.2500 #### [facility] [address] [place], [address] Hematocrit (Bld) [Volume fraction] 25.1 % Low 40-54 [facility] Comment on above: Performed By: #### L 100.0100, L500.2500 #### [facility] [address] [place], [address] Hemoglobin (Bld) [Mass/Vol] 8.1 g/dL Low 13.0-16.5 [facility] Comment on above: Performed By: #### L 100.0100, L500.2500 #### [facility] [address] [place], [address] IG% 0.300 Normal 0.0-0.9 [facility] Comment on above: Result Comment: IG% - Immature Granulocytes (promyelocytes, myelocytes and metamyelocytes) > 1% indicates that a LEFT SHIFT is Present. Performed By: #### L 100.0100, L500.2500 #### [facility] [address] [place], [address] Lymphocytes/100 WBC (Bld) 14.6 % Low 19-41 [facility] Comment on above: Performed By: #### L 100.0100, L500.2500 #### [facility] [address] [place], [address] MCH (RBC) [Entitic mass] 27.6 pg Normal 27.0-32.0 [facility] Comment on above: Performed By: #### L 100.0100, L500.2500 #### [facility] [address] [place], [address] MCHC (RBC) [Mass/Vol] 32.3 g/dL Normal 32-36 [facility] Comment on above: Performed By: #### L 100.0100, L500.2500 #### [facility] [address] [place], [address] MCV (RBC) [Entitic vol] 85.4 fL Normal 80-94 [facility] Comment on above: Performed By: #### L 100.0100, L500.2500 #### [facility] [address] [place], [address] Monocytes/100 WBC (Bld) 5.6 % Normal 0-10 [facility] Comment on above: Performed By: #### L 100.0100, L500.2500 #### [facility] [address] [place], [address] Neutrophils/100 WBC (Bld) 77.4 % High 47-70 [facility] Comment on above: Performed By: #### L 100.0100, L500.2500 #### [facility] [address] [place], [address] Nucleated RBC (Bld) [#/Vol] 0 10*3/uL Normal 0-5 [facility] Comment on above: Performed By: #### L 100.0100, L500.2500 #### [facility] [address] [place], [address] Platelet mean volume (Bld) [Entitic vol] 8.7 fL Normal 6.2-12.0 [facility] Comment on above: Performed By: #### L 100.0100, L500.2500 #### [facility] [address] [place], [address] Platelets (Bld) [#/Vol] 194 10*3/uL Normal 150-450 [facility] Comment on above: Performed By: #### L 100.0100, L500.2500 #### [facility] [address] [place], [address] RBC (Bld) [#/Vol] 2.94 10*6/uL Low 4.6-6.2 [facility] Comment on above: Performed By: #### L 100.0100, L500.2500 #### [facility] [address] [place], [address] RDW SD 60.3 fl High 35.1-43.9 [facility] Comment on above: Performed By: #### L 100.0100, L500.2500 #### [facility] [address] [place], [address] WBC (Bld) [#/Vol] 6.7 10*3/uL Normal 4.4-11.0 [facility] Comment on above: Performed By: #### L 100.0100, L500.2500 #### [facility] [address] [place], [address] Chest 1 View (Portable)on Chest 1 View (Portable) [facility] Imaging Services [address] [place] [address] Chest 1 View (Portable) MR#: [id number] Acct: [id number] Name: AGUSTO MONSALVE Rep #: [id number] : 1975 M 48 From: Santana Saab MD PCP: Dr. Bella Oneal MD Status: REG ER Study: Chest 1 View (Portable) Date of Exam: 02/09/24 Exam# [id number] Ordering Dr: Benny Knight VB NET PROGRAMMER-C [id number] STUDY: X-RAY CHEST REASON FOR EXAM: Male, [...] 16:29 EDT Reading Location ID and State: [address] [place] [address] Tel , Service support , CC: DARIEN Knight; Dr. Bella Oneal MD Bell Person: Signed Normal [facility] Emergency Department Summary on 02-09-2024 Emergency Department Summary [facility] Medical Records Department [address] [place] [address] Emergency Department Summary 02/09/24 MR#: [id number] Acct: [id number] Name: AGUSTO MONSALVE Rep #: [id number] : 1975 48 From: Benny LEDEZMA PCP: Dr. Bella Oneal MD Status:DEP ER Location: ED 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 Patient is a originally from here however lived in [place] from 2020 until 3 months ago. Patient was in a fpc down there. He wanted to do something different so he got out of the fpc and came here, and he thinks that [...] for evaluation. Denies any fevers or chills. [facility] Medical History GERD (gastroesophageal reflux disease) [...] ea 01/09/24 Unknown Rx (FreeStyle Bianca 2 Ryder) flash glucose sensor (FreeStyle #1 ea 01/09/24 [...] arteriovenous (AV) (more content not included)... Normal [facility] M100.678on 02-09-2024 M100.678 SARS-CoV-2 (COVID 19 ) Negative INFLUENZA A Negative INFLUENZA B Negative RSV PCR Negative Normal [facility] Comment on above: Performed By: #### L 100.0100, L500.4050 #### [facility] [address] [place], [address] Urinalysis, Completeon 02-08 BACTERIA Normal None Seen [facility] Comment on above: Order Comment: COLLE CTOR TO SPECIFY Result Comment: Canc elled via OM: MD Ordered Performed By: #### L 100.0100, L500.4050 #### [facility] [address] [place], [address] BILIRUBIN URINE Normal Negative [facility] Comment on above: Order Comment: COLLE CTOR TO SPECIFY Result Comment: Canc elled via OM: MD Ordered Performed By: #### L 100.0100, L500.4050 #### [facility] [address] [place], [address] Clarity (U) Normal Clear [facility] Comment on above: Order Comment: COLLE CTOR TO SPECIFY Result Comment: Canc elled via OM: MD Ordered Performed By: #### L 100.0100, L500.4050 #### [facility] [address] [place], [address] Color (U) Normal Yellow [facility] Comment on above: Order Comment: COLLE CTOR TO SPECIFY Result Comment: Canc elled via OM: MD Ordered Performed By: #### L 100.0100, L500.4050 #### [facility] [address] [place], [address] EPI,SQUAMOUS Normal 0-5 [facility] Comment on above: Order Comment: COLLE CTOR TO SPECIFY Result Comment: Canc elled via OM: MD Ordered Performed By: #### L 100.0100, L500.4050 #### [facility] [address] [place], [address] GLUCOSE, UR Normal Normal [facility] Comment on above: Order Comment: COLLE CTOR TO SPECIFY Result Comment: Canc elled via OM: MD Ordered Performed By: #### L 100.0100, L500.4050 #### [facility] [address] [place], [address] KETONE UR Normal Negative [facility] Comment on above: Order Comment: COLLE CTOR TO SPECIFY Result Comment: Canc elled via OM: MD Ordered Performed By: #### L 100.0100, L500.4050 #### [facility] [address] [place], [address] LEUK ESTERASE Normal Negative [facility] Comment on above: Order Comment: COLLE CTOR TO SPECIFY Result Comment: Canc elled via OM: MD Ordered Performed By: #### L 100.0100, L500.4050 #### [facility] [address] [place], [address] Mucus Ql (Urine sed) Normal [facility] Comment on above: Order Comment: COLLE CTOR TO SPECIFY Result Comment: Canc elled via OM: MD Ordered Performed By: #### L 100.0100, L500.4050 #### [facility] [address] [place], [address] Nitrite Ql (U) Normal Negative [facility] Comment on above: Order Comment: COLLE CTOR TO SPECIFY Result Comment: Canc elled via OM: MD Ordered Performed By: #### L 100.0100, L500.4050 #### [facility] [address] [place], [address] OCCULT BLOOD-UR Normal Negative [facility] Comment on above: Order Comment: COLLE CTOR TO SPECIFY Result Comment: Canc elled via OM: MD Ordered Performed By: #### L 100.0100, L500.4050 #### [facility] [address] [place], [address] pH UR Normal 5.0 - 8.0 [facility] Comment on above: Order Comment: COLLE CTOR TO SPECIFY Result Comment: Canc elled via OM: MD Ordered Performed By: #### L 100.0100, L500.4050 #### [facility] [address], [address] PROT DIPSTX Normal Negative [facility] Comment on above: Order Comment: COLLE CTOR TO SPECIFY Result Comment: Canc elled via OM: MD Ordered Performed By: #### L 100.0100, L500.4050 #### [facility] [address] [place], [address] RBC Normal 0-5 [facility] Comment on above: Order Comment: COLLE CTOR TO SPECIFY Result Comment: Canc elled via OM: MD Ordered Performed By: #### L 100.0100, L500.4050 #### [facility] [address] [place], [address] SP.GR. DIPSTX Normal 1.002-1.030 [facility] Comment on above: Order Comment: COLLE CTOR TO SPECIFY Result Comment: Canc elled via OM: MD Ordered Performed By: #### L 100.0100, L500.4050 #### [facility] [address] [place], [address] UR Preservative Normal [facility] Comment on above: Order Comment: COLLE CTOR TO SPECIFY Result Comment: Canc elled via OM: MD Ordered Performed By: #### L 100.0100, L500.4050 #### [facility] [address] [place], [address] UROBILI Normal Normal [facility] Comment on above: Order Comment: COLLE CTOR TO SPECIFY Result Comment: Canc elled via OM: MD Ordered Performed By: #### L 100.0100, L500.4050 #### [facility] [address] [place], [address] WBC Normal 0-5 [facility] Comment on above: Order Comment: COLLE CTOR TO SPECIFY Result Comment: Canc elled via OM: MD Ordered Performed By: #### L 100.0100, L500.4050 #### [facility] [address] [place], [address] Internal Medicine Office Vis iton 01-23-2024 Internal Medicine Office Visit [facility] [address] [place] [address] [place] [address] OFFICE VISIT Date of Service: 01/23/24 MR#: [id number] Acct: [id number] Name: AGUSTO MONSALVE Zahra Rep #: [id number] : 1975 Provider: DARIEN anderson Age/Sex: 48/M Location: [facility] Status: Signed Intake Vital Signs 01/21/24 11:59 01/23/24 12:46 Height 0 in BP 122/72 H Blood Pressure Location Lt brachial Position Sitting Respiration 16 Pulse 84 Pulse Source Monitor Temp 97.1 F L Temp Source Temporal Pulse Oximetry (%) 98 Oxygen Delivery Method room air Intake Visit Reasons: acute - discuss fpc 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 Normal [facility] Hepatic Function Panel Aon 0 10-03-2023 Albumin [Mass/Vol] 3.9 g/dL Low 4.0-4.9 [facility] Comment on above: Performed By: #### L IVP6 #### [address] [address] , Edi Irby M.D. FCAP, FASCP ALP [Catalytic activity/Vol] 285 U/L High 40-129 [facility] Comment on above: Performed By: #### L IVP6 #### [address] [address] , Edi Irby M.D. FCAP, FASCP ALT [Catalytic activity/Vol] 31 U/L Normal 10-50 [facility] Comment on above: Performed By: #### L IVP6 #### [address] [address] , Edi Irby M.D. FCAP, FASCP AST [Catalytic activity/Vol] 35 U/L Normal 10-50 [facility] Comment on above: Performed By: #### L IVP6 #### [address] [address] , Edi Irby M.D. FCAP, FASCP Bilirubin [Mass/Vol] 0.4 mg/dL Normal 0.2-1.2 [facility] Comment on above: Performed By: #### L IVP6 #### [address] [address] , Edi Irby M.D. FCAP, FASCP Bilirubin Indirect 0.2 mg/dL Normal 0.0-1.1 [facility] Comment on above: Performed By: #### L IVP6 #### [address] [address] , Edi Irby M.D. FCAP, FASCP Bilirubin.indirect [Mass/Vol] 0.2 mg/dL Normal 0.0-0.3 [facility] Comment on above: Performed By: #### L IVP6 #### [facility] [address] [place] [address] , Edi Irby M.D. FCAP, FASCP Protein [Mass/Vol] 6.8 g/dL Normal 6.4-8.3 [facility] Comment on above: Performed By: #### L IVP6 #### [facility] [address] [place] [address] , Edi Irby M.D. FCAP, FASCP Serum or plasma alanine martinez otransferase measurement (enzymatic activity/volume)Ordered By: KIM QUEVEDO on 10-03-2023 ALT [Catalytic activity/Vol] 31 U/L 1050 [facility] Serum or plasma albumin zainab urement (mass/volume)Ordered By: KIM QUEEVDO on 10-03-2023 Albumin [Mass/Vol] 3.9 g/dL Low 4.0-4.9 [facility] Serum or plasma alkaline robert sphatase measurement (enzymatic activity/volume)Ordered By: KIM QUEVEDO on 10-03-2023 ALP [Catalytic activity/Vol] 285 U/L High 40-129 [facility] Serum or plasma aspartate am inotransferase measurement (enzymatic activity/volume)Ordered By: KIM QUEVEDO on 10-03-2023 AST [Catalytic activity/Vol] 35 U/L 1050 [facility] Serum or plasma direct bilir ubin measurement (mass/volume)Ordered By: KIM QUEVEDO on 10-03-2023 Bilirubin.direct [Mass/Vol] 0.2 mg/dL 0.0-0.3 [facility] [facility] Serum or plasma indirect mingo irubin measurement (mass/volume)Ordered By: KIM QUEVEDO on 10-03-2023 Bilirubin.indirect [Mass/Vol] 0.2 mg/dL 0.0-1.1 [facility] Serum or plasma protein zainab urement (mass/volume)Ordered By: KIM QUEVEDO on 10-03-2023 Protein [Mass/Vol] 6.8 g/dL 6.4-8.3 [facility] Serum or plasma total biliru bin measurement (mass/volume)Ordered By: KIM QUEVEDO on 10-03-2023 Bilirubin [Mass/Vol] 0.4 mg/dL 0.2-1.2 [facility] Basic Metabolic Panelon 12-2 Anion gap [Moles/Vol] 18 mmol/L High 9-15 [facility] Comment on above: Performed By: #### L IVP6 #### [facility] [address] [place], [place] [id number] , Edi Irby M.D. FCAP, FASCP Calcium [Mass/Vol] 8.8 mg/dL Normal 8.6-10.0 [facility] Comment on above: Performed By: #### L IVP6 #### [address] [id number] , Edi Irby M.D. FCAP, FASCP Chloride [Moles/Vol] 93 mmol/L Low 98-107 [facility] Comment on above: Performed By: #### L IVP6 #### [address] [id number] , Maribel PalenciaAP, FASCP CO2 [Moles/Vol] 24 mmol/L Normal 22-29 [facility] Comment on above: Performed By: #### L IVP6 #### [address] [id number] , Edi Irby M.D. FCAP, FASCP Creatinine [Mass/Vol] 3.52 mg/dL High 0.67-1.17 [facility] Comment on above: Performed By: #### L IVP6 #### [address] [id number] , Edi Irby M.D. FCAP, FASCP GFR/1.73 sq M.predicted among non-blacks MDRD (S/P/Bld) [Vol rate/Area] 19 mL/min/{1.73_m2} Normal [facility] Comment on above: Result Comment: THE GFR IS ESTIMATED USING THE MDRD STUDY EQUATION. *NOTE* IF THE RACE OF THE PATIENT WAS UNKNOWN AT THE TIME OF REGISTRATION, AND THE PATIENT IS , MULTIPLY THE EGFR RESULT PROVIDED BY 1.21. EGFR <60.0 COULD BE ABNORMAL. Performed By: #### L IVP6 #### [address] [id number] , Maribel PalenciaAP, FASCP Glucose [Mass/Vol] 99 mg/dL Normal 70-100 [facility] Comment on above: Result Comment: INTR EPRETATION FOR FASTING BLOOD GLUCOSE: 70-100 mg/dl NORMAL GLUCOSE TOLERANCE 100-125 mg/dl IMPAIRED FASTING GLUCOSE (PRE-DIABETES) >125 mg/dl DIABETES - ON MORE THAN ONE TESTING Performed By: #### L IVP6 #### [address] [id number] , Maribel PalenciaAP, FASCP Potassium [Moles/Vol] 4.3 mmol/L Normal 3.6-5.0 [facility] Comment on above: Performed By: #### L IVP6 #### [address] [id number] , Maribel PalenciaAP, FASCP Sodium [Moles/Vol] 135 mmol/L Low 136-145 [facility] Comment on above: Performed By: #### L IVP6 #### [address] [address] , Maribel PalenciaAP, FASCP Urea nitrogen [Mass/Vol] 41.1 mg/dL High 6.0-20.0 [facility] Comment on above: Performed By: #### L IVP6 #### [address] [id number] , Edi Irby M.D. FCAP, FASCP Basophils Auto (Bld) [#/Vol] Ordered By: KIM QUEVEDO on 07-11-2023 Basophils (Bld) [#/Vol] 0.05 10*3/uL 0.0-0.2 [facility] Basophils/100 WBC Auto (Bld) Ordered By: KIM QUEVEDO on 07-11-2023 Basophils/100 WBC (Bld) 0.5 % 0-1.0 [facility] Blood hemoglobin measurement (mass/volume)Ordered By: KIM QUEVEDO on 07-11-2023 Hemoglobin (Bld) [Mass/Vol] 8.0 g/dL Low 13.3-17.7 [facility] CBC With Differentialon 06-15 Basophils Absolute Auto 0.05 10*3/uL Normal 0.0-0.2 [facility] Comment on above: Performed By: #### C BCD #### [address] [id number] , Edi Irby M.D. FCAP, FASCP Basophils/100 WBC (Bld) 0.5 % Normal 0-1.0 [facility] Comment on above: Performed By: #### C BCD #### [address] [id number] , Edi Irby M.D. FCAP, FASCP Differential Type? Auto Differential Normal [facility] Comment on above: Performed By: #### C BCD #### [facility] [address] [facility], [place] [id number] , Edi Irby M.D. FCAP, FASCP Eosinophils (Bld) [#/Vol] 0.17 10*3/uL Normal 0.0-0.5 [facility] Comment on above: Performed By: #### C BCD #### [facility] [address] [facility], [place] [id number] , Edi Irby M.D. FCAP, FASCP Eosinophils/100 WBC (Bld) 1.8 % Normal 0.0-3.0 [facility] Comment on above: Performed By: #### C BCD #### [address] [id number] , Edi Irby M.D. FCAP, FASCP Hematocrit (Bld) [Volume fraction] 27.5 % Low 40.0-52.0 [facility] Comment on above: Performed By: #### C BCD #### [address] [id number] , Edi Irby M.D. FCAP, FASCP Hemoglobin (Bld) [Mass/Vol] 8.0 g/dL Low 13.3-17.7 [facility] Comment on above: Performed By: #### C BCD #### [address] [id number] , Edi Irby M.D. FCAP, FASCP Immature Gran Absolute Auto 0.06 10*3/uL Normal 0.01-0.2 [facility] Comment on above: Performed By: #### C BCD #### [address] [phone] , Edi Irby M.D. FCAP, FASCP Immature granulocytes/100 WBC (Bld) 0.6 % Normal 0-0.9 [facility] Comment on above: Performed By: #### C BCD #### [address] [id number] , Edi Irby M.D. FCAP, FASCP Lymphocytes (Bld) [#/Vol] 1.17 10*3/uL Low 1.5-4.0 [facility] Comment on above: Performed By: #### C BCD #### [address] [place] [phone] , Edi Irby M.D. FCAP, FASCP Lymphocytes/100 WBC (Bld) 12.6 % Low 20.0-40.0 [facility] Comment on above: Performed By: #### C BCD #### [address] [id number] , Edi Irby M.D. FCAP, FASCP MCH (RBC) [Entitic mass] 24.5 pg Low 27.0-40.0 [facility] Comment on above: Performed By: #### C ANI #### [address] [id number] , Edi Irby M.D. FCAP, FASCP Mean Corpusc Hgb Concentration 29.1 g/dL Low 31.0-36.0 [facility] Comment on above: Performed By: #### C BCJak #### [address] [id number] , Edi Irby M.D. FCAP, FASCP Mean Corpuscular Volume 84.1 CU uM Normal 80.0-100.0 [facility] Comment on above: Performed By: #### C BCJak #### [address] [id number] , Edi Irby M.D. FCAP, FASCP Monocytes (Bld) [#/Vol] 0.53 10*3/uL Normal 0.2-0.8 [facility] Comment on above: Performed By: #### C BCD #### [address] [phone] , Edi Irby M.D. FCAP, FASCP Monocytes/100 WBC (Bld) 5.7 % Normal 4.0-10.0 [facility] Comment on above: Performed By: #### C MAYURID #### [address] [id number] , Edi Irby M.D. FCAP, FASCP Neutrophils Absolute Auto 7.29 10*3/uL High 2.0-7.0 [facility] Comment on above: Performed By: #### C BCD #### [address] [phone] , Edi Irby M.D. FCAP, FASCP Neutrophils/100 WBC (Bld) 78.8 % High 54.0-62.0 [facility] Comment on above: Performed By: #### C BCJak #### [address] [phone] , Edi Irby M.D. FCAP, FASCP Nucleated RBC (Bld) [#/Vol] 0.00 10*3/uL Normal -0 [facility] Comment on above: Performed By: #### C BCJak #### [address] [address] , Edi Irby M.D. FCAP, FASCP Nucleated RBC's % 0.0 /100WBC Normal -0 [facility] Comment on above: Performed By: #### C BCD #### [address] [place] [address] , Edi Irby M.D. FCAP, FASCP Platelets (Bld) [#/Vol] 245 10*3/uL Normal 130-440 [facility] Comment on above: Performed By: #### C BCD #### [address] [place] [address] , Edi Irby M.D. FCAP, FASCP RBC (Bld) [#/Vol] 3.27 10*6/uL Low 4.40-5.90 [facility] Comment on above: Performed By: #### C BCD #### [facility] [address] [facility], [place] [phone] , Edi Irby M.D. FCAP, FASCP Red Cell Distribution 17.4 High 11.5-14.5 [facility] Comment on above: Performed By: #### C BCD #### [facility] [address] [place], [place] [phone] , Edi Irby M.D. FCAP, FASCP WBC (Bld) [#/Vol] 9.3 10*3/uL Normal 3.9-10.6 [facility] Comment on above: Performed By: #### C BCD #### [facility] [address] [place], [place] [id number] , Edi Irby M.D. FCAP, FASCP Differential cell count meth od - BloodOrdered By: KIM QUEVEDO on 07-11-2023 Differential cell count method Nom (Bld) Auto differential [facility] Eosinophils Auto (Bld) [#/Vo l]Ordered By: KIM QUEVEDO on 07-11-2023 Eosinophils (Bld) [#/Vol] 0.17 10*3/uL 0.0-0.5 [facility] Eosinophils/100 WBC Auto (Bl d)Ordered By: KIM QUEVEDO on 07-11-2023 Eosinophils/100 WBC (Bld) 1.8 % 0.0-3.0 [facility] Erythrocyte distribution wid th Auto (RBC) [Ratio]Ordered By: KIM QUEVEDO on 07-11-2023 Erythrocyte distribution width (RBC) [Ratio] 17.4 % High 11.5-14.5 [facility] Glomerular filtration rate/1 .73 sq M.predicted [Volume Rate/Area] in Serum, Plasma orOrdered By: KIM QUEVEDO on 07-11-2023 GFR/1.73 sq M.predicted (S/P/Bld) [Vol rate/Area] 19 mL/min [facility] Comment on above: EGFR <60.0 COULD BE ABNORMAL.THE GFR IS ESTIMATED USING THE MDRD STUDY EQUATION.*NOTE* IF THE RACE OF THE PATIENT WAS UNKNOWN AT THE TIME OFREGISTRATION, AND THE PATIENT IS , MULTIPLYTHE EGFR RESULT PROVIDED BY 1.21. Hematocrit Auto (Bld) [Volum e fraction]Ordered By: KIM QUEVEDO on 07-11-2023 Hematocrit (Bld) [Volume fraction] 27.5 % Low 40.0-52.0 [facility] Immature granulocytes Auto ( Bld) [#/Vol]Ordered By: KIM QUEVEDO on 07-11-2023 Immature granulocytes (Bld) [#/Vol] 0.06 10*3/uL 0.01-0.2 [facility] Immature granulocytes/100 WB C Auto (Bld)Ordered By: KIM QUEVEDO on 07-11-2023 Immature granulocytes/100 WBC (Bld) 0.6 % 0-0.9 [facility] Lymphocytes Auto (Bld) [#/Vo l]Ordered By: KIM QUEVEDO on 07-11-2023 Lymphocytes (Bld) [#/Vol] 1.17 10*3/uL Low 1.5-4.0 [facility] Lymphocytes/100 WBC Auto (Bl d)Ordered By: KIM QUEVEDO on 07-11-2023 Lymphocytes/100 WBC (Bld) 12.6 % Low 20.0-40.0 [facility] MCH Auto (RBC) [Entitic mass ]Ordered By: KIM QUEVEDO on 07-11-2023 MCH (RBC) [Entitic mass] 24.5 pg Low 27-40 [facility] MCHC Auto (RBC) [Mass/Vol]Or dered By: KIM QUEVEDO on 07-11-2023 MCHC (RBC) [Mass/Vol] 29.1 g/dL Low 31-36 [facility] MCV Auto (RBC) [Entitic vol] Ordered By: KIM QUEVEDO on 07-11-2023 MCV (RBC) [Entitic vol] 84.1 CU uM 80.0-100.0 M [facility] Monocytes Auto (Bld) [#/Vol] Ordered By: KIM QUEVEDO on 07-11-2023 Monocytes (Bld) [#/Vol] 0.53 10*3/uL 0.2-0.8 [facility] Monocytes/100 WBC Auto (Bld) Ordered By: KIM QUEVEDO on 07-11-2023 Monocytes/100 WBC (Bld) 5.7 % 4.0-10.0 M [facility] Neutrophils Auto (Bld) [#/Vo l]Ordered By: KIM QUEVEDO on 07-11-2023 Neutrophils (Bld) [#/Vol] 7.29 10*3/uL High 2.0-7.0 [facility] Neutrophils/100 WBC Auto (Bl d)Ordered By: KIM QUEVEDO on 07-11-2023 Neutrophils/100 WBC (Bld) 78.8 % High 54.0-62.0 [facility] Nucleated RBC Auto (Bld) [#/ Vol]Ordered By: KIM QUEVEDO on 07-11-2023 Nucleated RBC (Bld) [#/Vol] 0.00 10*3/uL <0 [facility] Nucleated RBC/100 WBC Auto ( Bld) [Ratio]Ordered By: KIM QUEVEDO on 07-11-2023 Nucleated RBC/100 WBC (Bld) [Ratio] 0.0 /100WBC <0 [facility] Platelets Auto (Bld) [#/Vol] Ordered By: KIM QUEVEDO on 07-11-2023 Platelets (Bld) [#/Vol] 245 10*3/uL 130-440 [facility] RBC Auto (Bld) [#/Vol]Ordere d By: KIM QUEVEDO on 07-11-2023 RBC (Bld) [#/Vol] 3.27 10*6/uL Low 4.40-5.90 [facility] Serum or plasma anion gapOrd ered By: KIM QUEVEDO on 07-11-2023 Anion gap [Moles/Vol] 18 mmol/L High 9-15 [facility] Serum or plasma calcium zainab urement (mass/volume)Ordered By: KIM QUEVEDO on 07-11-2023 Calcium [Mass/Vol] 8.8 mg/dL 8.6-10.0 [facility] Serum or plasma carbon dioxi de, total measurement (moles/volume)Ordered By: KIM QUEVEDO on 07-11-2023 CO2 [Moles/Vol] 24 mmol/L [facility] Serum or plasma chloride eduardo surement (moles/volume)Ordered By: KIM QUEVEDO on 07-11-2023 Chloride [Moles/Vol] 93 mmol/L Low 98-107 [facility] Serum or plasma creatinine m easurement (mass/volume)Ordered By: KIM QUEVEDO on 07-11-2023 Creatinine [Mass/Vol] 3.52 mg/dL High 0.67-1.17 [facility] Serum or plasma glucose zainab urement (mass/volume)Ordered By: KIM QUEVEDO on 07-11-2023 Glucose [Mass/Vol] 99 mg/dL 70-100 [facility] Comment on above: INTREPRETATION FOR F ASTING BLOOD GLUCOSE: 70-100 mg/dl NORMAL GLUCOSE [id number] mg/dl IMPAIRED FASTING GLUCOSE (PRE-DIABETES)>125 mg/dl DIABETES - ON MORE THAN ONE TESTING Serum or plasma potassium me asurement (moles/volume)Ordered By: KIM QUEVEDO on 07-11-2023 Potassium [Moles/Vol] 4.3 mmol/L 3.6-5.0 [facility] Serum or plasma sodium measu rement (moles/volume)Ordered By: KIM QUEVEDO on 07-11-2023 Sodium [Moles/Vol] 135 mmol/L Low 136-145 [facility] Serum or plasma urea nitroge n measurement (mass/volume)Ordered By: KIM QUEVEDO on 07-11-2023 Urea nitrogen [Mass/Vol] 41.1 mg/dL High 6.0-20.0 [facility] WBC Auto (Bld) [#/Vol]Ordere d By: KIM QUEVEDO on 07-11-2023 WBC (Bld) [#/Vol] 9.3 10*3/uL 3.9-10.6 [facility] Basic Metabolic Panelon 12 Anion gap [Moles/Vol] 17 mmol/L High 9-15 [facility] Comment on above: Performed By: #### C HEM7, CP1 #### [address] [id number] , Edi Irby M.D. FCAP, FASCP Calcium [Mass/Vol] 8.7 mg/dL Normal 8.6-10.0 [facility] Comment on above: Performed By: #### C HEM7, CP1 #### [address] [id number] , Edi Irby M.D. FCAP, FASCP Chloride [Moles/Vol] 93 mmol/L Low 98-107 [facility] Comment on above: Performed By: #### C HEM7, CP1 #### [address] [id number] , Edi Irby M.D. FCAP, FASCP CO2 [Moles/Vol] 21 mmol/L Low 22-29 [facility] Comment on above: Performed By: #### C HEM7, CP1 #### [address] [id number] , Edi Irby M.D. FCAP, FASCP Creatinine [Mass/Vol] 3.79 mg/dL High 0.67-1.17 [facility] Comment on above: Performed By: #### C HEM7, CP1 #### [address] [id number] , Edi Irby M.D. FCAP, FASCP GFR/1.73 sq M.predicted among non-blacks MDRD (S/P/Bld) [Vol rate/Area] 17 mL/min/{1.73_m2} Normal [facility] Comment on above: Result Comment: THE GFR IS ESTIMATED USING THE MDRD STUDY EQUATION. *NOTE* IF THE RACE OF THE PATIENT WAS UNKNOWN AT THE TIME OF REGISTRATION, AND THE PATIENT IS , MULTIPLY THE EGFR RESULT PROVIDED BY 1.21. EGFR <60.0 COULD BE ABNORMAL. Performed By: #### C HEM7, CP1 #### [address] [address] , Edi Irby M.D. FCAP, FASCP Glucose [Mass/Vol] 81 mg/dL Normal 70-100 [facility] Comment on above: Result Comment: INTR EPRETATION FOR FASTING BLOOD GLUCOSE: 70-100 mg/dl NORMAL GLUCOSE TOLERANCE 100-125 mg/dl IMPAIRED FASTING GLUCOSE (PRE-DIABETES) >125 mg/dl DIABETES - ON MORE THAN ONE TESTING Performed By: #### C HEM7, CP1 #### [address] [address] , Edi Irby M.D. FCAP, FASCP Potassium [Moles/Vol] 6.6 mmol/L Critically high 3.6-5.0 [facility] Comment on above: Result Comment: HEMO LYSIS PRESENT. INTERPRET RESULT WITH CAUTION. Alert Value called to DENZEL ADKINS, DATE: 2023-07-05 12:50:46 BY:FRED Read Back? YES ALERT VALUE ATTENTION NURSING ALERT VALUE NOTIFY PHYSICIAN WITHIN 30 MINUTES OF RECEIVING THIS REPORT Performed By: #### C HEM7, CP1 #### [address] [address] , Edi Irby M.D. FCAP, FASCP Sodium [Moles/Vol] 131 mmol/L Low 136-145 [facility] Comment on above: Performed By: #### C HEM7, CP1 #### [address] [address] , Edi Irby M.D. FCAP, FASCP Urea nitrogen [Mass/Vol] 49.9 mg/dL High 6.0-20.0 [facility] Comment on above: Performed By: #### C HEM7, CP1 #### [facility] [address] [place] [address] , Edi Irby M.D. FCAP, FASCP Basophils Auto (Bld) [#/Vol] Ordered By: KIM QUEVEDO on 07-05-2023 Basophils (Bld) [#/Vol] 0.05 10*3/uL 0.0-0.2 [facility] Basophils/100 WBC Auto (Bld) Ordered By: KIM QUEVEDO on 07-05-2023 Basophils/100 WBC (Bld) 0.5 % 0-1.0 M [facility] Blood hemoglobin measurement (mass/volume)Ordered By: KIM QUEVEDO on 07-05-2023 Hemoglobin (Bld) [Mass/Vol] 8.5 g/dL Low 13.3-17.7 [facility] CBC With Differentialon 06-15 Differential Type? Auto Differential Normal [facility] Comment on above: Performed By: #### C BCD #### [facility] [address] [place] [address] , Edi Irby M.D. FCAP, FASCP Differential cell count meth od - BloodOrdered By: KIM QUEVEDO on 07-05-2023 Differential cell count method Nom (Bld) Auto differential [facility] Eosinophils Auto (Bld) [#/Vo l]Ordered By: KIM QUEVEDO on 07-05-2023 Eosinophils (Bld) [#/Vol] 0.06 10*3/uL 0.0-0.5 [facility] Eosinophils/100 WBC Auto (Bl d)Ordered By: KIM QUEVEDO on 07-05-2023 Eosinophils/100 WBC (Bld) 0.6 % 0.0-3.0 [facility] Erythrocyte distribution wid th Auto (RBC) [Ratio]Ordered By: KIM QUEVEDO on 07-05-2023 Erythrocyte distribution width (RBC) [Ratio] 17.9 % High 11.5-14.5 [facility] Glomerular filtration rate/1 .73 sq M.predicted [Volume Rate/Area] in Serum, Plasma orOrdered By: KIM QUEVEDO on 07-05-2023 GFR/1.73 sq M.predicted (S/P/Bld) [Vol rate/Area] 17 mL/min [facility] Comment on above: EGFR <60.0 COULD BE ABNORMAL.THE GFR IS ESTIMATED USING THE MDRD STUDY EQUATION.*NOTE* IF THE RACE OF THE PATIENT WAS UNKNOWN AT THE TIME OFREGISTRATION, AND THE PATIENT IS , MULTIPLYTHE EGFR RESULT PROVIDED BY 1.21. Hematocrit Auto (Bld) [Volum e fraction]Ordered By: KIM QUEVEDO on 07-05-2023 Hematocrit (Bld) [Volume fraction] 30.2 % Low 40.0-52.0 [facility] Immature granulocytes Auto ( Bld) [#/Vol]Ordered By: KIM QUEVEDO on 07-05-2023 Immature granulocytes (Bld) [#/Vol] 0.06 10*3/uL 0.01-0.2 [facility] Immature granulocytes/100 WB C Auto (Bld)Ordered By: KIM QUEVEDO on 07-05-2023 Immature granulocytes/100 WBC (Bld) 0.6 % 0-0.9 [facility] Lymphocytes Auto (Bld) [#/Vo l]Ordered By: KIM QUEVEDO on 07-05-2023 Lymphocytes (Bld) [#/Vol] 0.54 10*3/uL Low 1.5-4.0 [facility] Lymphocytes/100 WBC Auto (Bl d)Ordered By: KIM QUEVEDO on 07-05-2023 Lymphocytes/100 WBC (Bld) 5.1 % Low 20.0-40.0 [facility] MCH Auto (RBC) [Entitic mass ]Ordered By: KIM QUEVEDO on 07-05-2023 MCH (RBC) [Entitic mass] 24.9 pg Low 27-40 [facility] MCHC Auto (RBC) [Mass/Vol]Or dered By: KIM QUEVEDO on 07-05-2023 MCHC (RBC) [Mass/Vol] 28.1 g/dL Low 31-36 [facility] MCV Auto (RBC) [Entitic vol] Ordered By: KIM QUEVEDO on 07-05-2023 MCV (RBC) [Entitic vol] 88.6 CU uM 80.0-100.0 M [facility] Monocytes Auto (Bld) [#/Vol] Ordered By: KIM QUEVEDO on 07-05-2023 Monocytes (Bld) [#/Vol] 0.38 10*3/uL 0.2-0.8 [facility] Monocytes/100 WBC Auto (Bld) Ordered By: KIM QUEVEDO on 07-05-2023 Monocytes/100 WBC (Bld) 3.6 % Low 4.0-10.0 M [facility] Neutrophils Auto (Bld) [#/Vo l]Ordered By: KIM QUEVEDO on 07-05-2023 Neutrophils (Bld) [#/Vol] 9.60 10*3/uL High 2.0-7.0 [facility] Neutrophils/100 WBC Auto (Bl d)Ordered By: KIM QUEVEDO on 07-05-2023 Neutrophils/100 WBC (Bld) 89.6 % High 54.0-62.0 [facility] Nucleated RBC Auto (Bld) [#/ Vol]Ordered By: KIM QUEVEDO on 07-05-2023 Nucleated RBC (Bld) [#/Vol] 0.02 10*3/uL High <0 [facility] Nucleated RBC/100 WBC Auto ( Bld) [Ratio]Ordered By: KIM QUEVEDO on 07-05-2023 Nucleated RBC/100 WBC (Bld) [Ratio] 0.2 /100WBC High <0 [facility] Platelets Auto (Bld) [#/Vol] Ordered By: KIM QUEVEDO on 07-05-2023 Platelets (Bld) [#/Vol] 289 10*3/uL 130-440 [facility] RBC Auto (Bld) [#/Vol]Ordere d By: KIM QUEVEDO on 07-05-2023 RBC (Bld) [#/Vol] 3.41 10*6/uL Low 4.40-5.90 [facility] Serum or plasma anion gapOrd ered By: KIM QUEVEDO on 07-05-2023 Anion gap [Moles/Vol] 17 mmol/L High 9-15 [facility] Serum or plasma calcium zainab urement (mass/volume)Ordered By: KIM QUEVEDO on 07-05-2023 Calcium [Mass/Vol] 8.7 mg/dL 8.6-10.0 [facility] Serum or plasma carbon dioxi de, total measurement (moles/volume)Ordered By: KIM QUEVEDO on 07-05-2023 CO2 [Moles/Vol] 21 mmol/L Low 22-29 [facility] Serum or plasma chloride eduadro surement (moles/volume)Ordered By: KIM QUEVEDO on 07-05-2023 Chloride [Moles/Vol] 93 mmol/L Low 98-107 [facility] Serum or plasma creatinine m easurement (mass/volume)Ordered By: KIM QUEVEDO on 07-05-2023 Creatinine [Mass/Vol] 3.79 mg/dL High 0.67-1.17 [facility] Serum or plasma glucose zainab urement (mass/volume)Ordered By: KIM QUEVEDO on 07-05-2023 Glucose [Mass/Vol] 81 mg/dL 70-100 [facility] Comment on above: INTREPRETATION FOR F ASTING BLOOD GLUCOSE: 70-100 mg/dl NORMAL GLUCOSE [id number] mg/dl IMPAIRED FASTING GLUCOSE (PRE-DIABETES)>125 mg/dl DIABETES - ON MORE THAN ONE TESTING Serum or plasma potassium me asurement (moles/volume)Ordered By: KIM QUEVEDO on 07-05-2023 Potassium [Moles/Vol] 6.6 mmol/L High 3.6-5.0 [facility] Comment on above: HEMOLYSIS PRESENT. I NTERPRET RESULT WITH CAUTION. Alert Value called to DENZEL ADKINS, DATE: 2023-07-05 12:50:46 BY:FRED Read Back? YES ALERT VALUE ATTENTION NURSING ALERT VALUE NOTIFY PHYSICIAN WITHIN 30 MINUTES OF RECEIVING THIS REPORT Serum or plasma sodium measu rement (moles/volume)Ordered By: KIM QUEVEDO on 07-05-2023 Sodium [Moles/Vol] 131 mmol/L Low 136-145 [facility] Serum or plasma urea nitroge n measurement (mass/volume)Ordered By: KIM QUEVEDO on 07-05-2023 Urea nitrogen [Mass/Vol] 49.9 mg/dL High 6.0-20.0 [facility] WBC Auto (Bld) [#/Vol]Ordere d By: KIM QUEVEDO on 07-05-2023 WBC (Bld) [#/Vol] 10.7 10*3/uL High 3.9-10.6 [facility] Serum or plasma uric acid me asurement (mass/volume)Ordered By: KIM QUEVEDO on 05-29-2023 Urate [Mass/Vol] 3.3 mg/dL Low 3.4-7.0 [facility] Uric Acid Bloodon 05-29-2023 Uric Acid Blood 3.3 mg/dL Low 3.4-7.0 [facility] Comment on above: Performed By: #### L IVP6 #### [facility] [address] [place] [address] , Edi Irby M.D. FCAP, FASCP Alanine aminotransferase [En zymatic activity/volume] in Serum or PlasmaOrdered By: KIM QUEVEDO on 01-01-2023 ALT [Catalytic activity/Vol] 45 U/L 10-50 [facility] Blood hemoglobin measurement (mass/volume)Ordered By: KIM QUEVEDO on 01-01-2023 Hemoglobin (Bld) [Mass/Vol] 8.1 g/dL Low 13.3-17.7 [facility] Hematocrit Auto (Bld) [Volum e fraction]Ordered By: KIM QUEVEDO on 01-01-2023 Hematocrit (Bld) [Volume fraction] 27.7 % Low 40.0-52.0 [facility] Hemoglobin Hematocriton 12-14 Hematocrit (Bld) [Volume fraction] 27.7 % Low 40.0-52.0 [facility] Comment on above: Performed By: #### C BCD #### [facility] [address] [place] [address] , Edi Irby M.D. FCAP, FASCP Hemoglobin (Bld) [Mass/Vol] 8.1 g/dL Low 13.3-17.7 [facility] Comment on above: Performed By: #### C BCD #### [facility] [address] [place] [address] , Maribel PalenciaAP, FASCP Hepatic Function Panel Aon 0 - Albumin [Mass/Vol] 3.6 g/dL Low 4.0-4.9 [facility] Comment on above: Performed By: #### L IVP6 #### [address] [id number] , Edi Irby M.D. FCAP, FASCP ALP [Catalytic activity/Vol] 380 U/L High 40-129 [facility] Comment on above: Performed By: #### L IVP6 #### [address] [address] , Maribel PalenciaAP, FASCP ALT [Catalytic activity/Vol] 45 U/L Normal 10-50 [facility] Comment on above: Performed By: #### L IVP6 #### [address] [place] [address] , Maribel Palencia, FASCP AST [Catalytic activity/Vol] 27 U/L Normal 10-50 [facility] Comment on above: Performed By: #### L IVP6 #### [address] [place] [address] , Maribel Palencia, FASCP Bilirubin [Mass/Vol] 0.5 mg/dL Normal 0.2-1.2 [facility] Comment on above: Performed By: #### L IVP6 #### [address] [place] [address] , Maribel PalenciaAP, FASCP Bilirubin Indirect 0.2 MG/DL Normal 0.0-1.1 [facility] Comment on above: Performed By: #### L IVP6 #### [address] [place] [address] , Edi Irby M.D. FCAP, FASCP Bilirubin.indirect [Mass/Vol] 0.3 mg/dL Normal 0.0-0.3 [facility] Comment on above: Performed By: #### L IVP6 #### [facility] [address] [place], [place] [id number] , Edi Irby M.D. FCAP, FASCP Protein [Mass/Vol] 6.2 g/dL Low 6.4-8.3 [facility] Comment on above: Performed By: #### L IVP6 #### [facility] [address] [place] [address] , Edi Irby M.D. FCAP, FASCP Serum or plasma albumin zainab urement (mass/volume)Ordered By: KIM QUEVEDO on 01-01-2023 Albumin [Mass/Vol] 3.6 g/dL Low 4.0-4.9 [facility] Serum or plasma alkaline robert sphatase measurement (enzymatic activity/volume)Ordered By: KIM QUEVEDO on 01-01-2023 ALP [Catalytic activity/Vol] 380 U/L High 40-129 [facility] Serum or plasma aspartate am inotransferase measurement (enzymatic activity/volume)Ordered By: KIM QUEVEDO on 01-01-2023 AST [Catalytic activity/Vol] 27 U/L 10-50 [facility] Serum or plasma direct bilir ubin measurement (mass/volume)Ordered By: KIM QUEVEDO on 01-01-2023 Bilirubin.direct [Mass/Vol] 0.3 mg/dL 0.0-0.3 [facility] Serum or plasma indirect mingo irubin measurement (mass/volume)Ordered By: KIM QUEVEDO on 01-01-2023 Bilirubin.indirect [Mass/Vol] 0.2 mg/dL 0.0-1.1 [facility] Serum or plasma protein zainab urement (mass/volume)Ordered By: KIM QUEVEDO on 01-01-2023 Protein [Mass/Vol] 6.2 g/dL Low 6.4-8.3 [facility] Serum total bilirubin measur ement (mass/volume)Ordered By: KIM QUEVEDO on 01-01-2023 Bilirubin [Mass/Vol] 0.5 mg/dL 0.2-1.2 [facility] Anisocytosis LM Ql (Bld)Orde red By: KIM QUEVEDO on 12-28-2022 Anisocytosis Ql (Bld) 1+ [facility] Basic Metabolic Panelon 12-13 Anion gap [Moles/Vol] 17 mmol/L High 9-15 [facility] Comment on above: Performed By: #### C BCD #### [address] [address] , Edi Irby M.D. FCAP, FASCP Calcium [Mass/Vol] 8.6 mg/dL Normal 8.6-10.0 [facility] Comment on above: Performed By: #### C BCD #### [address] [place] [address] , Edi Irby M.D. FCAP, FASCP Chloride [Moles/Vol] 90 mmol/L Low 98-107 [facility] Comment on above: Performed By: #### C BCD #### [facility] [address] [place] [address] , Edi Irby M.D. FCAP, FASCP CO2 [Moles/Vol] 24 mmol/L Normal 22-29 [facility] Comment on above: Performed By: #### C BCD #### [facility] [address] [place] [address] , Edi Irby M.D. FCAP, FASCP Creatinine [Mass/Vol] 3.44 mg/dL High 0.67-1.17 [facility] Comment on above: Performed By: #### C BCD #### [facility] [address] [place] [id number] , Edi Irby M.D. FCAP, FASCP GFR/1.73 sq M.predicted among non-blacks MDRD (S/P/Bld) [Vol rate/Area] 19 mL/min/{1.73_m2} Normal [facility] Comment on above: Result Comment: THE GFR IS ESTIMATED USING THE MDRD STUDY EQUATION. *NOTE* IF THE RACE OF THE PATIENT WAS UNKNOWN AT THE TIME OF REGISTRATION, AND THE PATIENT IS , MULTIPLY THE EGFR RESULT PROVIDED BY 1.21. EGFR <60.0 COULD BE ABNORMAL. Performed By: #### C BCD #### [facility] [address] [place] [address] , Edi Irby M.D. FCAP, FASCP Glucose [Mass/Vol] 59 mg/dL Low 70-100 [facility] Comment on above: Result Comment: INTR EPRETATION FOR FASTING BLOOD GLUCOSE: 70-100 mg/dl NORMAL GLUCOSE TOLERANCE 100-125 mg/dl IMPAIRED FASTING GLUCOSE (PRE-DIABETES) >125 mg/dl DIABETES - ON MORE THAN ONE TESTING Performed By: #### C BCD #### [facility] [address] [place] [address] , Maribel PalenciaAP, FASCP Potassium [Moles/Vol] 5.9 mmol/L High 3.6-5.0 [facility] Comment on above: Result Comment: HEMO LYSIS PRESENT. INTERPRET RESULT WITH CAUTION. Performed By: #### C BCD #### [facility] [address] [place] [address] , Edi Irby M.D. FCAP, FASCP Sodium [Moles/Vol] 131 mmol/L Low 136-145 [facility] Comment on above: Performed By: #### C BCD #### [facility] [address] [place] [address] , Edi Irby M.D. FCAP, FASCP Urea nitrogen [Mass/Vol] 43.2 mg/dL High 6.0-20.0 [facility] Comment on above: Performed By: #### C BCD #### [facility] [address] [place] [address] , Edi Irby M.D. FCAP, FASCP Basophils Auto (Bld) [#/Vol] Ordered By: KIM QUEVEDO on 12-28-2022 Basophils (Bld) [#/Vol] 0.06 10:3/uL 0.0-0.2 [facility] Basophils/100 WBC Auto (Bld) Ordered By: KIM QUEVEDO on 12-28-2022 Basophils/100 WBC (Bld) 0.6 % 0-1.0 [facility] Blood hemoglobin measurement (mass/volume)Ordered By: KIM QUEVEDO on 12-28-2022 Hemoglobin (Bld) [Mass/Vol] 7.8 g/dL Low 13.3-17.7 [facility] Blood poikilocytosis detecti on by light microscopyOrdered By: KIM QUEVEDO on 12-28-2022 Poikilocytosis LM Ql (Bld) 1+ [facility] CBC With Differentialon 12-13 Basophils Absolute Auto 0.06 10:3/uL Normal 0.0-0.2 [facility] Comment on above: Performed By: #### L IVP6 #### [address] [address] , Edi Irby M.D. FCAP, FASCP Basophils/100 WBC (Bld) 0.6 % Normal 0-1.0 [facility] Comment on above: Performed By: #### L IVP6 #### [address] [address] , Edi Irby M.D. FCAP, FASCP Eosinophils Absolute Auto 0.08 10:3/uL Normal 0.0-0.5 [facility] Comment on above: Performed By: #### L IVP6 #### [address] [id number] , Edi Irby M.D. FCAP, FASCP Eosinophils/100 WBC (Bld) 0.8 % Normal 0.0-3.0 [facility] Comment on above: Performed By: #### L IVP6 #### [address] [id number] , Edi Irby M.D. FCAP, FASCP Immature Gran Absolute Auto 0.06 10:3/uL Normal 0.01-0.2 [facility] Comment on above: Performed By: #### L IVP6 #### [address] [id number] , Edi Irby M.D. FCAP, FASCP Immature granulocytes/100 WBC (Bld) 0.6 % Normal 0-0.9 [facility] Comment on above: Performed By: #### L IVP6 #### [address] [id number] , Edi Irby M.D. FCAP, FASCP Lymphocytes Absolute Auto 1.34 10:3/uL Low 1.5-4.0 [facility] Comment on above: Performed By: #### L IVP6 #### [address] [id number] , Edi Irby M.D. FCAP, FASCP Lymphocytes/100 WBC (Bld) 12.7 % Low 20.0-40.0 [facility] Comment on above: Performed By: #### L IVP6 #### [address] [id number] , Edi Irby M.D. FCAP, FASCP Monocytes Absolute Auto 0.73 10:3/uL Normal 0.2-0.8 [facility] Comment on above: Performed By: #### L IVP6 #### [facility] [address] [facility], [place] [id number] , Edi Irby M.D. FCAP, FASCP Monocytes/100 WBC (Bld) 6.9 % Normal 4.0-10.0 [facility] Comment on above: Performed By: #### L IVP6 #### [facility] [address] [facility], [place] [id number] , Edi Irby M.D. FCAP, FASCP Neutrophils Absolute Auto 8.32 10:3/uL High 2.0-7.0 [facility] Comment on above: Performed By: #### L IVP6 #### [facility] [address] [facility], [place] [id number] , Edi Irby M.D. FCAP, FASCP Neutrophils/100 WBC (Bld) 78.4 % High 54.0-62.0 [facility] Comment on above: Performed By: #### L IVP6 #### [facility] [address] [facility], [place] [id number] , Edi Irby M.D. FCAP, FASCP Differential cell count meth od - BloodOrdered By: KIM QUEVEDO on 12-28-2022 Differential cell count method Nom (Bld) Auto differential [facility] Eosinophils Auto (Bld) [#/Vo l]Ordered By: KIM QUEVEDO on 12-28-2022 Eosinophils (Bld) [#/Vol] 0.08 10:3/uL 0.0-0.5 [facility] Eosinophils/100 WBC Auto (Bl d)Ordered By: KIM QUEVEDO on 12-28-2022 Eosinophils/100 WBC (Bld) 0.8 % 0.0-3.0 [facility] Erythrocyte distribution wid th Auto (RBC) [Ratio]Ordered By: KIM QUEVEDO on 12-28-2022 Erythrocyte distribution width (RBC) [Ratio] 17.7 % High 11.5-14.5 [facility] Glomerular filtration rate/1 .73 sq M.predicted [Volume Rate/Area] in Serum, Plasma orOrdered By: KIM QUEVEDO on 12-28-2022 GFR/1.73 sq M.predicted (S/P/Bld) [Vol rate/Area] 19 mL/min [facility] Comment on above: EGFR <60.0 COULD BE ABNORMAL.THE GFR IS ESTIMATED USING THE MDRD STUDY EQUATION.*NOTE* IF THE RACE OF THE PATIENT WAS UNKNOWN AT THE TIME OFREGISTRATION, AND THE PATIENT IS , MULTIPLYTHE EGFR RESULT PROVIDED BY 1.21. Hematocrit Auto (Bld) [Volum e fraction]Ordered By: KIM QUEVEDO on 12-28-2022 Hematocrit (Bld) [Volume fraction] 27.2 % Low 40.0-52.0 [facility] Hypochromia LM Ql (Bld)Order ed By: KIM QUEVEDO on 12-28-2022 Hypochromia Ql (Bld) 2+ [facility] Immature granulocytes Auto ( Bld) [#/Vol]Ordered By: KIM QUEVEDO on 12-28-2022 Immature granulocytes (Bld) [#/Vol] 0.06 10:3/uL 0.01-0.2 [facility] Immature granulocytes/100 WB C Auto (Bld)Ordered By: KIM QUEVEDO on 12-28-2022 Immature granulocytes/100 WBC (Bld) 0.6 % 0-0.9 [facility] Lymphocytes Auto (Bld) [#/Vo l]Ordered By: KIM QUEVEDO on 12-28-2022 Lymphocytes (Bld) [#/Vol] 1.34 10:3/uL Low 1.5-4.0 [facility] Lymphocytes/100 WBC Auto (Bl d)Ordered By: KIM QUEVEDO on 12-28-2022 Lymphocytes/100 WBC (Bld) 12.7 % Low 20.0-40.0 [facility] MCH Auto (RBC) [Entitic mass ]Ordered By: KIM QUEVEDO on 12-28-2022 MCH (RBC) [Entitic mass] 23.5 pg Low 27-40 [facility] MCHC Auto (RBC) [Mass/Vol]Or dered By: KIM QUEVEDO on 12-28-2022 MCHC (RBC) [Mass/Vol] 28.7 g/dL Low 31-36 [facility] MCV Auto (RBC) [Entitic vol] Ordered By: KIM QUEVEDO on 12-28-2022 MCV (RBC) [Entitic vol] 81.9 CU uM 80.0-100.0 M [facility] Monocytes Auto (Bld) [#/Vol] Ordered By: KIM QUEVEDO on 12-28-2022 Monocytes (Bld) [#/Vol] 0.73 10:3/uL 0.2-0.8 [facility] Monocytes/100 WBC Auto (Bld) Ordered By: KIM QUEVEDO on 12-28-2022 Monocytes/100 WBC (Bld) 6.9 % 4.0-10.0 [facility] Neutrophils Auto (Bld) [#/Vo l]Ordered By: KIM QUEVEDO on 12-28-2022 Neutrophils (Bld) [#/Vol] 8.32 10:3/uL High 2.0-7.0 [facility] Neutrophils/100 WBC Auto (Bl d)Ordered By: KIM QUEVEDO on 12-28-2022 Neutrophils/100 WBC (Bld) 78.4 % High 54.0-62.0 [facility] Nucleated RBC Auto (Bld) [#/ Vol]Ordered By: KIM QUEVEDO on 12-28-2022 Nucleated RBC (Bld) [#/Vol] 0.00 10:3/uL <0 [facility] Nucleated RBC/100 WBC Auto ( Bld) [Ratio]Ordered By: KIM QUEVEDO on 12-28-2022 Nucleated RBC/100 WBC (Bld) [Ratio] 0.0 /100WBC <0 [facility] Platelets Auto (Bld) [#/Vol] Ordered By: KIM QUEVEDO on 12-28-2022 Platelets (Bld) [#/Vol] 311 10:3/uL 130-440 [facility] RBC Auto (Bld) [#/Vol]Ordere d By: KIM QUEVEDO on 12-28-2022 RBC (Bld) [#/Vol] 3.32 10:6/uL Low 4.40-5.90 [facility] Serum or plasma anion gapOrd ered By: KIM QUEVEDO on 12-28-2022 Anion gap [Moles/Vol] 17 mmol/L High 9-15 [facility] Serum or plasma calcium zainab urement (mass/volume)Ordered By: KIM QUEVEDO on 12-28-2022 Calcium [Mass/Vol] 8.6 mg/dL 8.6-10.0 [facility] Serum or plasma carbon dioxi de, total measurement (moles/volume)Ordered By: KIM QUEVEDO on 12-28-2022 CO2 [Moles/Vol] 24 mmol/L - [facility] Serum or plasma chloride eduardo surement (moles/volume)Ordered By: KIM QUEVEDO on 12-28-2022 Chloride [Moles/Vol] 90 mmol/L Low 98-107 [facility] Serum or plasma creatinine m easurement (mass/volume)Ordered By: KIM QUEVEDO on 12-28-2022 Creatinine [Mass/Vol] 3.44 mg/dL High 0.67-1.17 [facility] Serum or plasma glucose zainab urement (mass/volume)Ordered By: KIM QUEVEDO on 12-28-2022 Glucose [Mass/Vol] 59 mg/dL Low 70-100 [facility] Comment on above: INTREPRETATION FOR F ASTING BLOOD GLUCOSE: 70-100 mg/dl NORMAL GLUCOSE [id number] mg/dl IMPAIRED FASTING GLUCOSE (PRE-DIABETES)>125 mg/dl DIABETES - ON MORE THAN ONE TESTING Serum or plasma potassium me asurement (moles/volume)Ordered By: KIM QUEVEDO on 12-28-2022 Potassium [Moles/Vol] 5.9 mmol/L High 3.6-5.0 [facility] Comment on above: HEMOLYSIS PRESENT. I NTERPRET RESULT WITH CAUTION. Serum or plasma sodium measu rement (moles/volume)Ordered By: KIM QUEVEDO on 12-28-2022 Sodium [Moles/Vol] 131 mmol/L Low 136-145 [facility] Serum or plasma urea nitroge n measurement (mass/volume)Ordered By: KIM QUEVEDO on 12-28-2022 Urea nitrogen [Mass/Vol] 43.2 mg/dL High 6.0-20.0 [facility] WBC Auto (Bld) [#/Vol]Ordere d By: KIM QUEVEDO on 12-28-2022 WBC (Bld) [#/Vol] 10.6 10:3/uL 3.9-10.6 [facility] Basic Metabolic Panelon 06-0 Anion gap [Moles/Vol] 14 mmol/L Normal 9-15 [facility] Comment on above: Performed By: #### L IVP6 #### [address] [id number] , Edi Irby M.D. FCAP, FASCP Calcium [Mass/Vol] 8.7 mg/dL Normal 8.6-10.0 [facility] Comment on above: Performed By: #### L IVP6 #### [address] [id number] , Edi Irby M.D. FCAP, FASCP Chloride [Moles/Vol] 93 mmol/L Low 98-107 [facility] Comment on above: Performed By: #### L IVP6 #### [address] [id number] , Maribel PalenciaAP, FASCP CO2 [Moles/Vol] 26 mmol/L Normal 22-29 [facility] Comment on above: Performed By: #### L IVP6 #### [address] [address] , Edi Irby M.D. FCAP, FASCP Creatinine [Mass/Vol] 4.01 mg/dL High 0.67-1.17 [facility] Comment on above: Performed By: #### L IVP6 #### [address] [id number] , Edi Irby M.D. FCAP, FASCP GFR/1.73 sq M.predicted among non-blacks MDRD (S/P/Bld) [Vol rate/Area] 16 mL/min/{1.73_m2} Normal [facility] Comment on above: Result Comment: THE GFR IS ESTIMATED USING THE MDRD STUDY EQUATION. *NOTE* IF THE RACE OF THE PATIENT WAS UNKNOWN AT THE TIME OF REGISTRATION, AND THE PATIENT IS , MULTIPLY THE EGFR RESULT PROVIDED BY 1.21. EGFR <60.0 COULD BE ABNORMAL. Performed By: #### L IVP6 #### [address] [id number] , Edi Irby M.D. FCAP, FASCP Glucose [Mass/Vol] 78 mg/dL Normal 70-100 [facility] Comment on above: Result Comment: INTR EPRETATION FOR FASTING BLOOD GLUCOSE: 70-100 mg/dl NORMAL GLUCOSE TOLERANCE 100-125 mg/dl IMPAIRED FASTING GLUCOSE (PRE-DIABETES) >125 mg/dl DIABETES - ON MORE THAN ONE TESTING Performed By: #### L IVP6 #### [address] [id number] , Maribel PalenciaAP, FASCP Potassium [Moles/Vol] 6.1 mmol/L High 3.6-5.0 [facility] Comment on above: Performed By: #### L IVP6 #### [address] [address] , Maribel PalenciaAP, FASCP Sodium [Moles/Vol] 133 mmol/L Low 136-145 [facility] Comment on above: Performed By: #### L IVP6 #### [address] [address] , Edi Irby M.D. FCAP, FASCP Urea nitrogen [Mass/Vol] 42.1 mg/dL High 6.0-20.0 [facility] Comment on above: Performed By: #### L IVP6 #### [address] [id number] , Edi Irby M.D. FCAP, FASCP Blood hemoglobin measurement (mass/volume)Ordered By: KIM QUEVEDO on 12-21-2022 Hemoglobin (Bld) [Mass/Vol] 8.1 g/dL Low 13.3-17.7 [facility] Complete Blood Counton 12-21 Hematocrit (Bld) [Volume fraction] 26.2 % Low 40.0-52.0 [facility] Comment on above: Performed By: #### C BCD #### [address] [id number] , Edi Irby M.D. FCAP, FASCP Hemoglobin (Bld) [Mass/Vol] 8.1 g/dL Low 13.3-17.7 [facility] Comment on above: Performed By: #### C BCD #### [address] [id number] , Edi Irby M.D. FCAP, FASCP MCH (RBC) [Entitic mass] 24.7 pg Low 27.0-40.0 [facility] Comment on above: Performed By: #### C BCD #### [address] [address] , Edi Irby M.D. FCAP, FASCP Mean Corpusc Hgb Concentration 30.9 g/dL Low 31.0-36.0 [facility] Comment on above: Performed By: #### C BCD #### [address] [address] , Edi Irby M.D. FCAP, FASCP Mean Corpuscular Volume 79.9 CU uM Low 80.0-100.0 [facility] Comment on above: Performed By: #### C BCD #### [address] [id number] , Edi Irby M.D. FCAP, FASCP Platelet Count 332 10:3/uL Normal 130-440 [facility] Comment on above: Performed By: #### C BCD #### [facility] [address] [place], [place] [id number] , Edi Irby M.D. FCAP, FASCP Red Blood Cell Count 3.28 10:6/uL Low 4.40-5.90 [facility] Comment on above: Performed By: #### C BCD #### [facility] [address] [place], [place] [id number] , Edi Irby M.D. FCAP, FASCP Red Cell Distribution 17.1 High 11.5-14.5 [facility] Comment on above: Performed By: #### C BCD #### [facility] [address] [place], [place] [id number] , Edi Irby M.D. FCAP, FASCP White Blood Cell Count 13.4 10:3/uL High 3.9-10.6 [facility] Comment on above: Performed By: #### C BCD #### [facility] [address] [place], [place] [id number] , Edi Irby M.D. FCAP, FASCP Erythrocyte distribution wid th Auto (RBC) [Ratio]Ordered By: KIM QUEVEDO on 12-21-2022 Erythrocyte distribution width (RBC) [Ratio] 17.1 % High 11.5-14.5 [facility] Glomerular filtration rate/1 .73 sq M.predicted [Volume Rate/Area] in Serum, Plasma orOrdered By: KIM QUEVEDO on 12-21-2022 GFR/1.73 sq M.predicted (S/P/Bld) [Vol rate/Area] 16 mL/min [facility] Comment on above: EGFR <60.0 COULD BE ABNORMAL.THE GFR IS ESTIMATED USING THE MDRD STUDY EQUATION.*NOTE* IF THE RACE OF THE PATIENT WAS UNKNOWN AT THE TIME OFREGISTRATION, AND THE PATIENT IS , MULTIPLYTHE EGFR RESULT PROVIDED BY 1.21. Hematocrit Auto (Bld) [Volum e fraction]Ordered By: KIM QUEVEDO on 12-21-2022 Hematocrit (Bld) [Volume fraction] 26.2 % Low 40.0-52.0 [facility] MCH Auto (RBC) [Entitic mass ]Ordered By: KIM QUEVEDO on 12-21-2022 MCH (RBC) [Entitic mass] 24.7 pg Low 27-40 [facility] MCHC Auto (RBC) [Mass/Vol]Or dered By: KIM QUEVEDO on 12-21-2022 MCHC (RBC) [Mass/Vol] 30.9 g/dL Low 31-36 [facility] MCV Auto (RBC) [Entitic vol] Ordered By: KIM QUEVEDO on 12-21-2022 MCV (RBC) [Entitic vol] 79.9 CU uM Low 80.0-100.0 M [facility] Platelets Auto (Bld) [#/Vol] Ordered By: KIM QUEVEDO on 12-21-2022 Platelets (Bld) [#/Vol] 332 10:3/uL 130-440 [facility] RBC Auto (Bld) [#/Vol]Ordere d By: KIM QUEVEDO on 12-21-2022 RBC (Bld) [#/Vol] 3.28 10:6/uL Low 4.40-5.90 [facility] Serum or plasma anion gapOrd ered By: KIM QUEVEDO on 12-21-2022 Anion gap [Moles/Vol] 14 mmol/L 9-15 [facility] Serum or plasma calcium zainab urement (mass/volume)Ordered By: KIM QUEVEDO on 12-21-2022 Calcium [Mass/Vol] 8.7 mg/dL 8.6-10.0 [facility] Serum or plasma carbon dioxi de, total measurement (moles/volume)Ordered By: KIM QUEVEDO on 12-21-2022 CO2 [Moles/Vol] 26 mmol/L 22-29 [facility] Serum or plasma chloride eduardo surement (moles/volume)Ordered By: KIM QUEVEDO on 12-21-2022 Chloride [Moles/Vol] 93 mmol/L Low 98-107 [facility] Serum or plasma creatinine m easurement (mass/volume)Ordered By: KIM QUEVEDO on 12-21-2022 Creatinine [Mass/Vol] 4.01 mg/dL High 0.67-1.17 [facility] Serum or plasma glucose zainab urement (mass/volume)Ordered By: KIM QUEVEDO on 12-21-2022 Glucose [Mass/Vol] 78 mg/dL 70-100 [facility] Comment on above: INTREPRETATION FOR F ASTING BLOOD GLUCOSE: 70-100 mg/dl NORMAL GLUCOSE [id number] mg/dl IMPAIRED FASTING GLUCOSE (PRE-DIABETES)>125 mg/dl DIABETES - ON MORE THAN ONE TESTING Serum or plasma potassium me asurement (moles/volume)Ordered By: KIM QUEVEDO on 12-21-2022 Potassium [Moles/Vol] 6.1 mmol/L High 3.6-5.0 [facility] Serum or plasma sodium measu rement (moles/volume)Ordered By: KIM QUEVEDO on 12-21-2022 Sodium [Moles/Vol] 133 mmol/L Low 136-145 [facility] Serum or plasma urea nitroge n measurement (mass/volume)Ordered By: KIM QUEVEDO on 12-21-2022 Urea nitrogen [Mass/Vol] 42.1 mg/dL High 6.0-20.0 [facility] WBC Auto (Bld) [#/Vol]Ordere d By: KIM QUEVEDO on 12-21-2022 WBC (Bld) [#/Vol] 13.4 10:3/uL High 3.9-10.6 [facility] Automated blood hematocrit ( volume fraction)Ordered By: KIM QUEVEDO on 12-07-2022 Hematocrit (Bld) [Volume fraction] 25.0 % Low 40.0-52.0 [facility] Comment on above: Performed By: #### L IVP6 #### [facility] [address] [place] [address] , Maribel Palencia, FASCP Automated erythrocyte mean c orpuscular hemoglobin (MCH) measurement (mass/erythrocyteOrdered By: KIM QUEVEDO on 12-07-2022 MCH (RBC) [Entitic mass] 23.8 pg Low 27.0-40.0 [facility] Comment on above: Performed By: #### L IVP6 #### [facility] [address] [place] [address] , Maribel Palencia, FASCP Basic Metabolic Panelon 11-13 GFR/1.73 sq M.predicted among non-blacks MDRD (S/P/Bld) [Vol rate/Area] 13 mL/min/{1.73_m2} Normal [facility] Comment on above: Result Comment: THE GFR IS ESTIMATED USING THE MDRD STUDY EQUATION. *NOTE* IF THE RACE OF THE PATIENT WAS UNKNOWN AT THE TIME OF REGISTRATION, AND THE PATIENT IS , MULTIPLY THE EGFR RESULT PROVIDED BY 1.21. EGFR <60.0 COULD BE ABNORMAL. Performed By: #### C HEM7 #### [facility] [address] [place] [address] , Maribel Palencia, FASCSri Blood hemoglobin measurement (mass/volume)Ordered By: KIM QUEVEDO on 12-07-2022 Hemoglobin (Bld) [Mass/Vol] 7.4 g/dL Low 13.3-17.7 [facility] Comment on above: Performed By: #### L IVP6 #### [facility] [address] [place] [address] , Maribel Palencia, FASCP Complete Blood Counton 12-07 Mean Corpusc Hgb Concentration 29.6 g/dL Low 31.0-36.0 [facility] Comment on above: Performed By: #### L IVP6 #### [facility] [address] [place] [address] , Edi Irby M.D. FCAP, FASCP Mean Corpuscular Volume 80.4 CU uM Normal 80.0-100.0 [facility] Comment on above: Performed By: #### L IVP6 #### [address] [id number] , Edi Irby M.D. FCAP, FASCP Platelet Count 301 10:3/uL Normal 130-440 [facility] Comment on above: Performed By: #### L IVP6 #### [address] [id number] , dEi Irby M.D. FCAP, FASCP Red Blood Cell Count 3.11 10:6/uL Low 4.40-5.90 [facility] Comment on above: Performed By: #### L IVP6 #### [address] [id number] , Maribel Palencia, FASCP Red Cell Distribution 16.9 High 11.5-14.5 [facility] Comment on above: Performed By: #### L IVP6 #### [address] [id number] , Edi Irby M.D. FCAP, FASCP White Blood Cell Count 10.5 10:3/uL Normal 3.9-10.6 [facility] Comment on above: Performed By: #### L IVP6 #### [address] [address] , Edi Irby M.D. FCAP, FASCP Erythrocyte distribution wid th Auto (RBC) [Ratio]Ordered By: KIM QUEVEDO on 12-07-2022 Erythrocyte distribution width (RBC) [Ratio] 16.9 % High 11.5-14.5 [facility] Glomerular filtration rate/1 .73 sq M.predicted [Volume Rate/Area] in Serum, Plasma orOrdered By: KIM QUEVEDO on 12-07-2022 GFR/1.73 sq M.predicted (S/P/Bld) [Vol rate/Area] 13 mL/min [facility] Comment on above: EGFR <60.0 COULD BE ABNORMAL.THE GFR IS ESTIMATED USING THE MDRD STUDY EQUATION.*NOTE* IF THE RACE OF THE PATIENT WAS UNKNOWN AT THE TIME OFREGISTRATION, AND THE PATIENT IS , MULTIPLYTHE EGFR RESULT PROVIDED BY 1.21. MCHC Auto (RBC) [Mass/Vol]Or dered By: KIM QUEVEDO on 12-07-2022 MCHC (RBC) [Mass/Vol] 29.6 g/dL Low 31-36 [facility] MCV Auto (RBC) [Entitic vol] Ordered By: KIM QUEVEDO on 12-07-2022 MCV (RBC) [Entitic vol] 80.4 CU uM 80.0-100.0 M [facility] Platelets Auto (Bld) [#/Vol] Ordered By: KIM QUEVEDO on 12-07-2022 Platelets (Bld) [#/Vol] 301 10:3/uL 130-440 [facility] RBC Auto (Bld) [#/Vol]Ordere d By: KIM QUEVEDO on 12-07-2022 RBC (Bld) [#/Vol] 3.11 10:6/uL Low 4.40-5.90 [facility] Serum or plasma anion gapOrd ered By: KIM QUEVEDO on 12-07-2022 Anion gap [Moles/Vol] 14 mmol/L Normal 9-15 [facility] Comment on above: Performed By: #### C [id number] #### [facility] [address] [place] [address] , Edi Irby M.D. FCAP, FASCP Serum or plasma calcium zainab urement (mass/volume)Ordered By: KIM QUEVEDO on 12-07-2022 Calcium [Mass/Vol] 8.1 mg/dL Low 8.6-10.0 [facility] Comment on above: Performed By: #### C HEM7 #### [facility] [address] [place] [address] , Edi Irby M.D. FCAP, FASCP Serum or plasma carbon dioxi de, total measurement (moles/volume)Ordered By: KIM QUEVEDO on 12-07-2022 CO2 [Moles/Vol] 25 mmol/L Normal 22-29 [facility] Comment on above: Performed By: #### C HEM7 #### [facility] [address] [place] [address] , Maribel PalenciaAP, FASCP Serum or plasma chloride eduardo surement (moles/volume)Ordered By: KIM QUEVEDO on 12-07-2022 Chloride [Moles/Vol] 94 mmol/L Low 98-107 [facility] Comment on above: Performed By: #### C HEM7 #### [facility] [address] [place] [address] , Edi Irby M.D. FCAP, FASCP Serum or plasma creatinine m easurement (mass/volume)Ordered By: KIM QUEVEDO on 12-07-2022 Creatinine [Mass/Vol] 4.74 mg/dL High 0.67-1.17 [facility] Comment on above: Performed By: #### C HEM7 #### [facility] [address] [place] [address] , Edi Irby M.D. FCAP, FASCP Serum or plasma glucose zainab urement (mass/volume)Ordered By: KIM QUEVEDO on 12-07-2022 Glucose [Mass/Vol] 81 mg/dL Normal 70-100 [facility] Comment on above: INTREPRETATION FOR F ASTING BLOOD GLUCOSE: 70-100 mg/dl NORMAL GLUCOSE [id number] mg/dl IMPAIRED FASTING GLUCOSE (PRE-DIABETES)>125 mg/dl DIABETES - ON MORE THAN ONE TESTING Result Comment: INTR EPRETATION FOR FASTING BLOOD GLUCOSE: 70-100 mg/dl NORMAL GLUCOSE TOLERANCE 100-125 mg/dl IMPAIRED FASTING GLUCOSE (PRE-DIABETES) >125 mg/dl DIABETES - ON MORE THAN ONE TESTING Performed By: #### C HEM7 #### [facility] [address] [place] [address] , Edi Irby M.D. FCAP, FASCP Serum or plasma potassium me asurement (moles/volume)Ordered By: KIM QUEVEDO on 12-07-2022 Potassium [Moles/Vol] 5.6 mmol/L High 3.6-5.0 [facility] Comment on above: Performed By: #### C HEM7 #### [facility] [address] [place] [address] , Edi Irby M.D. FCAP, FASCP Serum or plasma sodium measu rement (moles/volume)Ordered By: KIM QUEVEDO on 12-07-2022 Sodium [Moles/Vol] 133 mmol/L Low 136-145 [facility] Comment on above: Performed By: #### C HEM7 #### [facility] [address] [place] [address] , Edi Irby M.D. FCAP, FASCP Serum or plasma urea nitroge n measurement (mass/volume)Ordered By: KIM QUEVEDO on 12-07-2022 Urea nitrogen [Mass/Vol] 47.1 mg/dL High 6.0-20.0 [facility] Comment on above: Performed By: #### C HEM7 #### [facility] [address] [place] [address] , Edi Irby M.D. FCAP, FASCP WBC Auto (Bld) [#/Vol]Ordere d By: KIM QUEVEDO on 12-07-2022 WBC (Bld) [#/Vol] 10.5 10:3/uL 3.9-10.6 [facility] Basic Metabolic Panelon 11-12 Anion gap [Moles/Vol] 11 mmol/L Normal 9-15 [facility] Comment on above: Performed By: #### C HEM7 #### [address] [id number] , Edi Irby M.D. FCAP, FASCP Calcium [Mass/Vol] 8.0 mg/dL Low 8.6-10.0 [facility] Comment on above: Performed By: #### C HEM7 #### [address] [id number] , Edi Irby M.D. FCAP, FASCP Chloride [Moles/Vol] 94 mmol/L Low 98-107 [facility] Comment on above: Performed By: #### C HEM7 #### [address] [id number] , Edi Irby M.D. FCAP, FASCP CO2 [Moles/Vol] 27 mmol/L Normal 22-29 [facility] Comment on above: Performed By: #### C HEM7 #### [address] [id number] , Edi Irby M.D. FCAP, FASCP Creatinine [Mass/Vol] 3.53 mg/dL High 0.67-1.17 [facility] Comment on above: Performed By: #### C HEM7 #### [address] [id number] , Edi Irby M.D. FCAP, FASCP GFR/1.73 sq M.predicted among non-blacks MDRD (S/P/Bld) [Vol rate/Area] 19 mL/min/{1.73_m2} Normal [facility] Comment on above: Result Comment: THE GFR IS ESTIMATED USING THE MDRD STUDY EQUATION. *NOTE* IF THE RACE OF THE PATIENT WAS UNKNOWN AT THE TIME OF REGISTRATION, AND THE PATIENT IS , MULTIPLY THE EGFR RESULT PROVIDED BY 1.21. EGFR <60.0 COULD BE ABNORMAL. Performed By: #### C HEM7 #### [address] [id number] , Edi Irby M.D. FCAP, FASCP Glucose [Mass/Vol] 69 mg/dL Low 70-100 [facility] Comment on above: Result Comment: INTR EPRETATION FOR FASTING BLOOD GLUCOSE: 70-100 mg/dl NORMAL GLUCOSE TOLERANCE 100-125 mg/dl IMPAIRED FASTING GLUCOSE (PRE-DIABETES) >125 mg/dl DIABETES - ON MORE THAN ONE TESTING Performed By: #### C HEM7 #### [address] [id number] , Edi Irby M.D. FCAP, FASCP Potassium [Moles/Vol] 5.0 mmol/L Normal 3.6-5.0 [facility] Comment on above: Performed By: #### C HEM7 #### [address] [id number] , Edi Irby M.D. FCAP, FASCP Sodium [Moles/Vol] 132 mmol/L Low 136-145 [facility] Comment on above: Performed By: #### C HEM7 #### [address] [id number] , Edi Irby M.D. FCAP, FASCP Urea nitrogen [Mass/Vol] 30.1 mg/dL High 6.0-20.0 [facility] Comment on above: Performed By: #### C HEM7 #### [address] [id number] , Edi Irby M.D. FCAP, FASCP Basophils Auto (Bld) [#/Vol] Ordered By: KIM QUEVEDO on 11-30-2022 Basophils (Bld) [#/Vol] 0.07 10:3/uL 0.0-0.2 [facility] Basophils/100 WBC Auto (Bld) Ordered By: KIM QUEVEDO on 11-30-2022 Basophils/100 WBC (Bld) 0.8 % 0-1.0 [facility] Blood hemoglobin measurement (mass/volume)Ordered By: KIM QUEVEDO on 11-30-2022 Hemoglobin (Bld) [Mass/Vol] 6.4 g/dL Low 13.3-17.7 [facility] Comment on above: This result has been called to WILLIAM CHUA by aaron on 11/30/2022 09:19:40, and has been read back. ALERT VALUE ATTENTION NURSING ALERT VALUE NOTIFY PHYSICIAN WITHIN 30 MINUTES OF RECEIVING THIS REPORT CBC With Differentialon 11-12 Basophils Absolute Auto 0.07 10:3/uL Normal 0.0-0.2 [facility] Comment on above: Performed By: #### C HEM7, CP1 #### [address] [id number] , Edi Irby M.D. FCAP, FASCP Basophils/100 WBC (Bld) 0.8 % Normal 0-1.0 [facility] Comment on above: Performed By: #### Garrett HEMHallie, CP1 #### [address] [id number] , Edi Irby M.D. FCAP, FASCP Differential Type? Auto Differential Normal [facility] Comment on above: Performed By: #### Garrett HEM7, CP1 #### [address] [id number] , Edi Irby M.D. FCAP, FASCP Eosinophils Absolute Auto 0.12 10:3/uL Normal 0.0-0.5 [facility] Comment on above: Performed By: #### Garrett HEM7, CP1 #### [address] [id number] , Edi Irby M.D. FCAP, FASCP Eosinophils/100 WBC (Bld) 1.3 % Normal 0.0-3.0 [facility] Comment on above: Performed By: #### Garrett HEMKUMAR Sterling1 #### [address] [id number] , Edi Irby M.D. FCAP, FASCP Hematocrit (Bld) [Volume fraction] 21.7 % Low 40.0-52.0 [facility] Comment on above: Performed By: #### Garrett HEMHallie, CP1 #### [address] [id number] , Edi Irby M.D. FCAP, FASCP Hemoglobin (Bld) [Mass/Vol] 6.4 g/dL Critically low 13.3-17.7 [facility] Comment on above: Result Comment: This result has been called to WILLIAM CHUA by aaron on 11/30/2022 09:19:40, and has been read back. ALERT VALUE ATTENTION NURSING ALERT VALUE NOTIFY PHYSICIAN WITHIN 30 MINUTES OF RECEIVING THIS REPORT Performed By: #### Garrett HYATT CP1 #### [address] [address] , Edi Irby M.D. FCAP, FASCP Immature Gran Absolute Auto 0.05 10:3/uL Normal 0.01-0.2 [facility] Comment on above: Performed By: #### Garrett HEMHallie, CP1 #### [address] [address] , Edi Irby M.D. FCAP, FASCP Immature granulocytes/100 WBC (Bld) 0.6 % Normal 0-0.9 [facility] Comment on above: Performed By: #### Garrett HEMHallie, CP1 #### [address] [address] , Edi J. Macatol, M.D. FCAP, FASCP Lymphocytes Absolute Auto 1.59 10:3/uL Normal 1.5-4.0 [facility] Comment on above: Performed By: #### Garrett HEMHallie CP1 #### [address] [id number] , Edi Iryb M.D. FCAP, FASCP Lymphocytes/100 WBC (Bld) 17.8 % Low 20.0-40.0 [facility] Comment on above: Performed By: #### Garrett HEMHallie, CP1 #### [address] [id number] , Edi Irby M.D. FCAP, FASCP MCH (RBC) [Entitic mass] 22.9 pg Low 27.0-40.0 [facility] Comment on above: Performed By: #### Garrett HEMKUMAR Sterling1 #### [address] [id number] , Edi Irby M.D. FCAP, FASCP Mean Corpusc Hgb Concentration 29.5 g/dL Low 31.0-36.0 [facility] Comment on above: Performed By: #### Garrett HEMHallie, CP1 #### [address] [id number] , Edi Irby M.D. FCAP, FASCP Mean Corpuscular Volume 77.8 CU uM Low 80.0-100.0 [facility] Comment on above: Performed By: #### Garrett HEMHallie, CP1 #### [address] [id number] , Edi Irby M.D. FCAP, FASCP Monocytes Absolute Auto 0.72 10:3/uL Normal 0.2-0.8 [facility] Comment on above: Performed By: #### Garrett HEMHallie, CP1 #### [address] [id number] , Edi Irby M.D. FCAP, FASCP Monocytes/100 WBC (Bld) 8.1 % Normal 4.0-10.0 [facility] Comment on above: Performed By: #### Garrett HEM7, CP1 #### [address] [id number] , Edi Irby M.D. FCAP, FASCP Neutrophils Absolute Auto 6.37 10:3/uL Normal 2.0-7.0 [facility] Comment on above: Performed By: #### Garrett HEMHallie, CP1 #### [address] [id number] , Edi Irby M.D. FCAP, FASCP Neutrophils/100 WBC (Bld) 71.4 % High 54.0-62.0 [facility] Comment on above: Performed By: #### Garrett HEMHallie, CP1 #### [address] [id number] , Edi Irby M.D. FCAP, FASCP Nucleated RBC's % Auto 0.0 /100WBC Normal -0 [facility] Comment on above: Performed By: #### Garrett HEMHallie, CP1 #### [address] [id number] , Edi Irby M.D. FCAP, FASCP Nucleated RBC's Absolute Auto 0.00 10:3/uL Normal -0 [facility] Comment on above: Performed By: #### Garrett HEMHallie, CP1 #### [address] [id number] , Edi Irby M.D. FCAP, FASCP Platelet Count 329 10:3/uL Normal 130-440 [facility] Comment on above: Performed By: #### Garrett HEMHallie, CP1 #### [facility] [address] [facility], [place] [id number] , Edi Irby M.D. FCAP, FASCP Red Blood Cell Count 2.79 10:6/uL Low 4.40-5.90 [facility] Comment on above: Performed By: #### C HEM7, CP1 #### [facility] [address] [place], [place] [id number] , Edi Irby M.D. FCAP, FASCP Red Cell Distribution 15.5 High 11.5-14.5 [facility] Comment on above: Performed By: #### C HEM7, CP1 #### [address] [id number] , Edi Irby M.D. FCAP, FASCP White Blood Cell Count 8.9 10:3/uL Normal 3.9-10.6 [facility] Comment on above: Performed By: #### C HEM7, CP1 #### [facility] [address] [place], [place] [id number] , Edi Irby M.D. FCAP, FASCP Differential cell count meth od - BloodOrdered By: KIM QUEVEDO on 11-30-2022 Differential cell count method Nom (Bld) Auto differential [facility] Eosinophils Auto (Bld) [#/Vo l]Ordered By: KIM QUEVEDO on 11-30-2022 Eosinophils (Bld) [#/Vol] 0.12 10:3/uL 0.0-0.5 [facility] Eosinophils/100 WBC Auto (Bl d)Ordered By: KIM QUEVEDO on 11-30-2022 Eosinophils/100 WBC (Bld) 1.3 % 0.0-3.0 [facility] Erythrocyte distribution wid th Auto (RBC) [Ratio]Ordered By: KIM QUEVEDO on 11-30-2022 Erythrocyte distribution width (RBC) [Ratio] 15.5 % High 11.5-14.5 [facility] Glomerular filtration rate/1 .73 sq M.predicted [Volume Rate/Area] in Serum, Plasma orOrdered By: KIM QUEVEDO on 11-30-2022 GFR/1.73 sq M.predicted (S/P/Bld) [Vol rate/Area] 19 mL/min [facility] Comment on above: EGFR <60.0 COULD BE ABNORMAL.THE GFR IS ESTIMATED USING THE MDRD STUDY EQUATION.*NOTE* IF THE RACE OF THE PATIENT WAS UNKNOWN AT THE TIME OFREGISTRATION, AND THE PATIENT IS , MULTIPLYTHE EGFR RESULT PROVIDED BY 1.21. Hematocrit Auto (Bld) [Volum e fraction]Ordered By: KIM QUEVEDO on 11-30-2022 Hematocrit (Bld) [Volume fraction] 21.7 % Low 40.0-52.0 [facility] Immature granulocytes Auto ( Bld) [#/Vol]Ordered By: KIM QUEVEDO on 11-30-2022 Immature granulocytes (Bld) [#/Vol] 0.05 10:3/uL 0.01-0.2 [facility] Immature granulocytes/100 WB C Auto (Bld)Ordered By: KIM QUEVEDO on 11-30-2022 Immature granulocytes/100 WBC (Bld) 0.6 % 0-0.9 [facility] Lymphocytes Auto (Bld) [#/Vo l]Ordered By: KIM QUEVEDO on 11-30-2022 Lymphocytes (Bld) [#/Vol] 1.59 10:3/uL 1.5-4.0 [facility] Lymphocytes/100 WBC Auto (Bl d)Ordered By: KIM QUEVEDO on 11-30-2022 Lymphocytes/100 WBC (Bld) 17.8 % Low 20.0-40.0 [facility] MCH Auto (RBC) [Entitic mass ]Ordered By: KIM QUEVEDO on 11-30-2022 MCH (RBC) [Entitic mass] 22.9 pg Low 27-40 [facility] MCHC Auto (RBC) [Mass/Vol]Or dered By: KIM QUEVEDO on 11-30-2022 MCHC (RBC) [Mass/Vol] 29.5 g/dL Low 31-36 [facility] MCV Auto (RBC) [Entitic vol] Ordered By: KIM QUEVEDO on 11-30-2022 MCV (RBC) [Entitic vol] 77.8 CU uM Low 80.0-100.0 M [facility] Monocytes Auto (Bld) [#/Vol] Ordered By: KIM QUEVEDO on 11-30-2022 Monocytes (Bld) [#/Vol] 0.72 10:3/uL 0.2-0.8 [facility] Monocytes/100 WBC Auto (Bld) Ordered By: KIM QUEVEDO on 11-30-2022 Monocytes/100 WBC (Bld) 8.1 % 4.0-10.0 M [facility] Neutrophils Auto (Bld) [#/Vo l]Ordered By: KIM QUEVEDO on 11-30-2022 Neutrophils (Bld) [#/Vol] 6.37 10:3/uL 2.0-7.0 [facility] Neutrophils/100 WBC Auto (Bl d)Ordered By: KIM QUEVEDO on 11-30-2022 Neutrophils/100 WBC (Bld) 71.4 % High 54.0-62.0 [facility] Nucleated RBC Auto (Bld) [#/ Vol]Ordered By: KIM QUEVEDO on 11-30-2022 Nucleated RBC (Bld) [#/Vol] 0.00 10:3/uL <0 [facility] Nucleated RBC/100 WBC Auto ( Bld) [Ratio]Ordered By: KIM QUEVEDO on 11-30-2022 Nucleated RBC/100 WBC (Bld) [Ratio] 0.0 /100WBC <0 [facility] Platelets Auto (Bld) [#/Vol] Ordered By: KIM QUEVEDO on 11-30-2022 Platelets (Bld) [#/Vol] 329 10:3/uL 130-440 [facility] RBC Auto (Bld) [#/Vol]Ordere d By: KIM QUEVEDO on 11-30-2022 RBC (Bld) [#/Vol] 2.79 10:6/uL Low 4.40-5.90 [facility] Serum or plasma anion gapOrd ered By: KIM QUEVEDO on 11-30-2022 Anion gap [Moles/Vol] 11 mmol/L 9-15 [facility] Serum or plasma calcium zainab urement (mass/volume)Ordered By: KIM QUEVEDO on 11-30-2022 Calcium [Mass/Vol] 8.0 mg/dL Low 8.6-10.0 [facility] Serum or plasma carbon dioxi de, total measurement (moles/volume)Ordered By: KIM QUEVEDO on 11-30-2022 CO2 [Moles/Vol] 27 mmol/L 22-29 [facility] Serum or plasma chloride eduardo surement (moles/volume)Ordered By: KIM QUEVEDO on 11-30-2022 Chloride [Moles/Vol] 94 mmol/L Low 98-107 [facility] Serum or plasma creatinine m easurement (mass/volume)Ordered By: IKM QUEVEDO on 11-30-2022 Creatinine [Mass/Vol] 3.53 mg/dL High 0.67-1.17 [facility] Serum or plasma glucose zainab urement (mass/volume)Ordered By: KIM QUEVEDO on 11-30-2022 Glucose [Mass/Vol] 69 mg/dL Low 70-100 [facility] Comment on above: INTREPRETATION FOR F ASTING BLOOD GLUCOSE: 70-100 mg/dl NORMAL GLUCOSE [id number] mg/dl IMPAIRED FASTING GLUCOSE (PRE-DIABETES)>125 mg/dl DIABETES - ON MORE THAN ONE TESTING Serum or plasma potassium me asurement (moles/volume)Ordered By: KIM QUEVEDO on 11-30-2022 Potassium [Moles/Vol] 5.0 mmol/L 3.6-5.0 [facility] Serum or plasma sodium measu rement (moles/volume)Ordered By: KIM QUEVEDO on 11-30-2022 Sodium [Moles/Vol] 132 mmol/L Low 136-145 [facility] Serum or plasma urea nitroge n measurement (mass/volume)Ordered By: KIM QUEVEDO on 11-30-2022 Urea nitrogen [Mass/Vol] 30.1 mg/dL High 6.0-20.0 [facility] WBC Auto (Bld) [#/Vol]Ordere d By: KIM QUEVEDO on 11-30-2022 WBC (Bld) [#/Vol] 8.9 10:3/uL 3.9-10.6 [facility] Blood hemoglobin measurement (mass/volume)Ordered By: KIM QUEVEDO on 11-26-2022 Hemoglobin (Bld) [Mass/Vol] 7.1 g/dL Low 13.3-17.7 [facility] Hematocrit Auto (Bld) [Volum e fraction]Ordered By: KIM QUEVEDO on 11-26-2022 Hematocrit (Bld) [Volume fraction] 24.4 % Low 40.0-52.0 [facility] Hemoglobin Hematocriton 11-12 Hematocrit (Bld) [Volume fraction] 24.4 % Low 40.0-52.0 [facility] Comment on above: Performed By: #### H H #### [address] [id number] , Edi Irby M.D. FCAP, FASCP Hemoglobin (Bld) [Mass/Vol] 7.1 g/dL Low 13.3-17.7 [facility] Comment on above: Performed By: #### H H #### [address] [phone] , Edi Irby M.D. FCAP, FASCP Basic Metabolic Panelon 11-12 Anion gap [Moles/Vol] 14 mmol/L Normal 9-15 [facility] Comment on above: Performed By: #### C BCD #### [address] [id number] , Edi Irby M.D. FCAP, FASCP Calcium [Mass/Vol] 8.0 mg/dL Low 8.6-10.0 [facility] Comment on above: Performed By: #### C BCD #### [address] [id number] , Edi Irby M.D. FCAP, FASCP Chloride [Moles/Vol] 93 mmol/L Low 98-107 [facility] Comment on above: Performed By: #### C BCD #### [facility] [address] [place] [address] , Edi Irby M.D. FCAP, FASCP CO2 [Moles/Vol] 24 mmol/L Normal 22-29 [facility] Comment on above: Performed By: #### C BCD #### [facility] [address] [place] [address] , Edi Irby M.D. FCAP, FASCP Creatinine [Mass/Vol] 6.21 mg/dL High 0.67-1.17 [facility] Comment on above: Performed By: #### C BCD #### [address] [address] , Edi Irby M.D. FCAP, FASCP GFR/1.73 sq M.predicted among non-blacks MDRD (S/P/Bld) [Vol rate/Area] 10 mL/min/{1.73_m2} Normal [facility] Comment on above: Result Comment: THE GFR IS ESTIMATED USING THE MDRD STUDY EQUATION. *NOTE* IF THE RACE OF THE PATIENT WAS UNKNOWN AT THE TIME OF REGISTRATION, AND THE PATIENT IS , MULTIPLY THE EGFR RESULT PROVIDED BY 1.21. EGFR <60.0 COULD BE ABNORMAL. Performed By: #### C BCD #### [address] [address] , Edi Irby M.D. FCAP, FASCP Glucose [Mass/Vol] 79 mg/dL Normal 70-100 [facility] Comment on above: Result Comment: INTR EPRETATION FOR FASTING BLOOD GLUCOSE: 70-100 mg/dl NORMAL GLUCOSE TOLERANCE 100-125 mg/dl IMPAIRED FASTING GLUCOSE (PRE-DIABETES) >125 mg/dl DIABETES - ON MORE THAN ONE TESTING Performed By: #### C BCD #### [facility] [address] [place] [address] , Maribel Palencia, FASCP Potassium [Moles/Vol] 5.6 mmol/L High 3.6-5.0 [facility] Comment on above: Performed By: #### C BCD #### [facility] [address] [place], [place] [id number] , Edi Irby M.D. FCAP, FASCP Sodium [Moles/Vol] 131 mmol/L Low 136-145 [facility] Comment on above: Performed By: #### C BCD #### [address] [id number] , Maribel PalenciaAP, FASCP Urea nitrogen [Mass/Vol] 58.0 mg/dL High 6.0-20.0 [facility] Comment on above: Performed By: #### C BCD #### [address] [id number] , Edi Irby M.D. FCAP, FASCP Blood hemoglobin measurement (mass/volume)Ordered By: KIM QUEVEDO on 11-23-2022 Hemoglobin (Bld) [Mass/Vol] 7.2 g/dL Low 13.3-17.7 [facility] Complete Blood Counton 11-23 Hematocrit (Bld) [Volume fraction] 25.1 % Low 40.0-52.0 [facility] Comment on above: Performed By: #### L IVP6 #### [address] [id number] , Maribel PalenciaAP, FASCP Hemoglobin (Bld) [Mass/Vol] 7.2 g/dL Low 13.3-17.7 [facility] Comment on above: Performed By: #### L IVP6 #### [address] [id number] , Edi J. Macatol, M.D. FCAP, FASCP MCH (RBC) [Entitic mass] 22.9 pg Low 27.0-40.0 [facility] Comment on above: Performed By: #### L IVP6 #### [address] [id number] , Edi Irby M.D. FCAP, FASCP Mean Corpusc Hgb Concentration 28.7 g/dL Low 31.0-36.0 [facility] Comment on above: Performed By: #### L IVP6 #### [address] [id number] , Edi Irby M.D. FCAP, FASCP Mean Corpuscular Volume 79.9 CU uM Low 80.0-100.0 [facility] Comment on above: Performed By: #### L IVP6 #### [address] [id number] , Edi Irby M.D. FCAP, FASCP Platelet Count 442 10:3/uL High 130-440 [facility] Comment on above: Performed By: #### L IVP6 #### [address] [id number] , Edi Irby M.D. FCAP, FASCP Red Blood Cell Count 3.14 10:6/uL Low 4.40-5.90 [facility] Comment on above: Performed By: #### L IVP6 #### [address] [id number] , Edi Irby M.D. FCAP, FASCP Red Cell Distribution 15.7 High 11.5-14.5 [facility] Comment on above: Performed By: #### L IVP6 #### [address] [id number] , Edi J. Macatol, M.D. FCAP, FASCP White Blood Cell Count 10.1 10:3/uL Normal 3.9-10.6 [facility] Comment on above: Performed By: #### L IVP6 #### [facility] [address] [place] [address] , Edi Irby M.D. FCAP, FASCP Erythrocyte distribution wid th Auto (RBC) [Ratio]Ordered By: KIM QUEVEDO on 11-23-2022 Erythrocyte distribution width (RBC) [Ratio] 15.7 % High 11.5-14.5 [facility] Glomerular filtration rate/1 .73 sq M.predicted [Volume Rate/Area] in Serum, Plasma orOrdered By: KIM QUEVEDO on 11-23-2022 GFR/1.73 sq M.predicted (S/P/Bld) [Vol rate/Area] 10 mL/min [facility] Comment on above: EGFR <60.0 COULD BE ABNORMAL.THE GFR IS ESTIMATED USING THE MDRD STUDY EQUATION.*NOTE* IF THE RACE OF THE PATIENT WAS UNKNOWN AT THE TIME OFREGISTRATION, AND THE PATIENT IS , MULTIPLYTHE EGFR RESULT PROVIDED BY 1.21. Hematocrit Auto (Bld) [Volum e fraction]Ordered By: KIM QUEVEDO on 11-23-2022 Hematocrit (Bld) [Volume fraction] 25.1 % Low 40.0-52.0 [facility] MCH Auto (RBC) [Entitic mass ]Ordered By: KIM QUEVEDO on 11-23-2022 MCH (RBC) [Entitic mass] 22.9 pg Low 27-40 [facility] MCHC Auto (RBC) [Mass/Vol]Or dered By: KIM QUEVEDO on 11-23-2022 MCHC (RBC) [Mass/Vol] 28.7 g/dL Low 31-36 [facility] MCV Auto (RBC) [Entitic vol] Ordered By: KIM QUEVEDO on 11-23-2022 MCV (RBC) [Entitic vol] 79.9 CU uM Low 80.0-100.0 M [facility] Platelets Auto (Bld) [#/Vol] Ordered By: KIM QUEVEDO on 11-23-2022 Platelets (Bld) [#/Vol] 442 10:3/uL High 130-440 [facility] RBC Auto (Bld) [#/Vol]Ordere d By: KIM QUEVEDO on 11-23-2022 RBC (Bld) [#/Vol] 3.14 10:6/uL Low 4.40-5.90 [facility] Serum or plasma anion gapOrd ered By: KIM QUEVEDO on 11-23-2022 Anion gap [Moles/Vol] 14 mmol/L 9-15 [facility] Serum or plasma calcium zainab urement (mass/volume)Ordered By: KIM QUEVEDO on 11-23-2022 Calcium [Mass/Vol] 8.0 mg/dL Low 8.6-10.0 [facility] Serum or plasma carbon dioxi de, total measurement (moles/volume)Ordered By: KIM QUEVEDO on 11-23-2022 CO2 [Moles/Vol] 24 mmol/L [facility] Serum or plasma chloride eduardo surement (moles/volume)Ordered By: KIM QUEVEDO on 11-23-2022 Chloride [Moles/Vol] 93 mmol/L Low 98-107 [facility] Serum or plasma creatinine m easurement (mass/volume)Ordered By: KIM QUEVEDO on 11-23-2022 Creatinine [Mass/Vol] 6.21 mg/dL High 0.67-1.17 [facility] Serum or plasma glucose zainab urement (mass/volume)Ordered By: KIM QUEVEDO on 11-23-2022 Glucose [Mass/Vol] 79 mg/dL 70-100 [facility] Comment on above: INTREPRETATION FOR F ASTING BLOOD GLUCOSE: 70-100 mg/dl NORMAL GLUCOSE [id number] mg/dl IMPAIRED FASTING GLUCOSE (PRE-DIABETES)>125 mg/dl DIABETES - ON MORE THAN ONE TESTING Serum or plasma potassium me asurement (moles/volume)Ordered By: KIM QUEVEDO on 11-23-2022 Potassium [Moles/Vol] 5.6 mmol/L High 3.6-5.0 [facility] Serum or plasma sodium measu rement (moles/volume)Ordered By: KIM QUEVEDO on 11-23-2022 Sodium [Moles/Vol] 131 mmol/L Low 136-145 [facility] Serum or plasma urea nitroge n measurement (mass/volume)Ordered By: KIM QUEVEDO on 11-23-2022 Urea nitrogen [Mass/Vol] 58.0 mg/dL High 6.0-20.0 [facility] WBC Auto (Bld) [#/Vol]Ordere d By: KIM QUEVEDO on 11-23-2022 WBC (Bld) [#/Vol] 10.1 10:3/uL 3.9-10.6 [facility] Basic Metabolic Panelon 05 Anion gap [Moles/Vol] 16 mmol/L High 9-15 [facility] Comment on above: Performed By: #### C BCD #### [facility] [address] [place], [place] [id number] , Edi Irby M.D. FCAP, FASCP Calcium [Mass/Vol] 8.6 mg/dL Normal 8.6-10.0 [facility] Comment on above: Performed By: #### C BCD #### [facility] [address] [place], [place] [id number] , Maribel PalenciaAP, FASCP Chloride [Moles/Vol] 91 mmol/L Low 98-107 [facility] Comment on above: Performed By: #### C BCD #### [facility] [address] [facility] [place] [id number] , Edi Irby M.D. FCAP, FASCP CO2 [Moles/Vol] 24 mmol/L Normal 22-29 [facility] Comment on above: Performed By: #### C BCD #### [facility] [address] [place], [place] [id number] , Edi Irby M.D. FCAP, FASCP Creatinine [Mass/Vol] 4.97 mg/dL High 0.67-1.17 [facility] Comment on above: Performed By: #### C BCD #### [facility] [address] [place] [address] , Edi Irby M.D. FCAP, FASCP GFR/1.73 sq M.predicted among non-blacks MDRD (S/P/Bld) [Vol rate/Area] 13 mL/min/{1.73_m2} Normal [facility] Comment on above: Result Comment: THE GFR IS ESTIMATED USING THE MDRD STUDY EQUATION. *NOTE* IF THE RACE OF THE PATIENT WAS UNKNOWN AT THE TIME OF REGISTRATION, AND THE PATIENT IS , MULTIPLY THE EGFR RESULT PROVIDED BY 1.21. EGFR <60.0 COULD BE ABNORMAL. Performed By: #### C BCD #### [address] [id number] , Edi Irby M.D. FCAP, FASCP Glucose [Mass/Vol] 56 mg/dL Low 70-100 [facility] Comment on above: Result Comment: INTR EPRETATION FOR FASTING BLOOD GLUCOSE: 70-100 mg/dl NORMAL GLUCOSE TOLERANCE 100-125 mg/dl IMPAIRED FASTING GLUCOSE (PRE-DIABETES) >125 mg/dl DIABETES - ON MORE THAN ONE TESTING Performed By: #### C BCD #### [address] [address] , Edi Irby M.D. FCAP, FASCP Potassium [Moles/Vol] 5.5 mmol/L High 3.6-5.0 [facility] Comment on above: Performed By: #### C BCD #### [address] [address] , Edi Irby M.D. FCAP, FASCP Sodium [Moles/Vol] 131 mmol/L Low 136-145 [facility] Comment on above: Performed By: #### C BCD #### [address] [id number] , Edi Irby M.D. FCAP, FASCP Urea nitrogen [Mass/Vol] 44.3 mg/dL High 6.0-20.0 [facility] Comment on above: Performed By: #### C BCD #### [facility] [address], [place] [id number] , Edi Irby M.D. FCAP, FASCP Basophils Auto (Bld) [#/Vol] Ordered By: KIM QUEVEDO on 11-16-2022 Basophils (Bld) [#/Vol] 0.07 10:3/uL 0.0-0.2 [facility] Basophils/100 WBC Auto (Bld) Ordered By: KIM QUEVEDO on 11-16-2022 Basophils/100 WBC (Bld) 0.6 % 0-1.0 [facility] Blood hemoglobin measurement (mass/volume)Ordered By: KIM QUEVEDO on 11-16-2022 Hemoglobin (Bld) [Mass/Vol] 8.4 g/dL Low 13.3-17.7 [facility] CBC With Differentialon Basophils Absolute Auto 0.07 10:3/uL Normal 0.0-0.2 [facility] Comment on above: Performed By: #### C BCD #### [facility] [address], [place] [id number] , Edi Irby M.D. FCAP, FASCP Basophils/100 WBC (Bld) 0.6 % Normal 0-1.0 [facility] Comment on above: Performed By: #### C BCD #### [facility] [address] [place] [address] , Edi Irby M.D. FCAP, FASCP Differential Type? Auto Differential Normal [facility] Comment on above: Performed By: #### C BCD #### [facility] [address], [place] [id number] , Edi Irby M.D. FCAP, FASCP Eosinophils Absolute Auto 0.17 10:3/uL Normal 0.0-0.5 [facility] Comment on above: Performed By: #### C BCD #### [address] [id number] , Edi Irby M.D. FCAP, FASCP Eosinophils/100 WBC (Bld) 1.5 % Normal 0.0-3.0 [facility] Comment on above: Performed By: #### C BCD #### [address] [phone] , Edi Irby M.D. FCAP, FASCP Hematocrit (Bld) [Volume fraction] 28.8 % Low 40.0-52.0 [facility] Comment on above: Performed By: #### C BCD #### [address] [id number] , Edi Irby M.D. FCAP, FASCP Hemoglobin (Bld) [Mass/Vol] 8.4 g/dL Low 13.3-17.7 [facility] Comment on above: Performed By: #### C BCD #### [address] [id number] , Edi Irby M.D. FCAP, FASCP Immature Gran Absolute Auto 0.05 10:3/uL Normal 0.01-0.2 [facility] Comment on above: Performed By: #### C BCD #### [address] [id number] , Edi Irby M.D. FCAP, FASCP Immature granulocytes/100 WBC (Bld) 0.4 % Normal 0-0.9 [facility] Comment on above: Performed By: #### C BCD #### [address] [id number] , Edi Irby M.D. FCAP, FASCP Lymphocytes Absolute Auto 1.66 10:3/uL Normal 1.5-4.0 [facility] Comment on above: Performed By: #### C BCD #### [address] [id number] , Edi Irby M.D. FCAP, FASCP Lymphocytes/100 WBC (Bld) 14.3 % Low 20.0-40.0 [facility] Comment on above: Performed By: #### C BCD #### [address] [id number] , Edi Irby M.D. FCAP, FASCP MCH (RBC) [Entitic mass] 23.6 pg Low 27.0-40.0 [facility] Comment on above: Performed By: #### C BCD #### [address] [id number] , Edi Irby M.D. FCAP, FASCP Mean Corpusc Hgb Concentration 29.2 g/dL Low 31.0-36.0 [facility] Comment on above: Performed By: #### C BCD #### [address] [id number] , Edi Irby M.D. FCAP, FASCP Mean Corpuscular Volume 80.9 CU uM Normal 80.0-100.0 [facility] Comment on above: Performed By: #### C BCD #### [address] [id number] , Edi Irby M.D. FCAP, FASCP Monocytes Absolute Auto 0.90 10:3/uL High 0.2-0.8 [facility] Comment on above: Performed By: #### C BCD #### [address] [id number] , Edi Irby M.D. FCAP, FASCP Monocytes/100 WBC (Bld) 7.7 % Normal 4.0-10.0 [facility] Comment on above: Performed By: #### C BCD #### [address] [id number] , Edi Irby M.D. FCAP, FASCP Neutrophils Absolute Auto 8.78 10:3/uL High 2.0-7.0 [facility] Comment on above: Performed By: #### C BCD #### [address] [id number] , Edi Irby M.D. FCAP, FASCP Neutrophils/100 WBC (Bld) 75.5 % High 54.0-62.0 [facility] Comment on above: Performed By: #### C BCD #### [address] [id number] , Edi Irby M.D. FCAP, FASCP Nucleated RBC's % Auto 0.0 /100WBC Normal -0 [facility] Comment on above: Performed By: #### C BCD #### [address] [id number] , Edi Irby M.D. FCAP, FASCP Nucleated RBC's Absolute Auto 0.00 10:3/uL Normal -0 [facility] Comment on above: Performed By: #### C BCD #### [address] [id number] , Edi Irby M.D. FCAP, FASCP Platelet Count 391 10:3/uL Normal 130-440 [facility] Comment on above: Performed By: #### C BCD #### [address] [address] , Edi Irby M.D. FCAP, FASCP Red Blood Cell Count 3.56 10:6/uL Low 4.40-5.90 [facility] Comment on above: Performed By: #### C BCD #### [facility] [address] [place] [address] , Edi Irby M.D. FCAP, FASCP Red Cell Distribution 15.4 High 11.5-14.5 [facility] Comment on above: Performed By: #### C BCD #### [facility] [address] [place], [place] [id number] , Edi Irby M.D. FCAP, FASCP White Blood Cell Count 11.6 10:3/uL High 3.9-10.6 [facility] Comment on above: Performed By: #### C BCD #### [facility] [address] [place], [place] [id number] , Edi Irby M.D. FCAP, FASCP Differential cell count meth od - BloodOrdered By: KIM QUEVEDO on 11-16-2022 Differential cell count method Nom (Bld) Auto differential [facility] Eosinophils Auto (Bld) [#/Vo l]Ordered By: KIM QUEVEDO on 11-16-2022 Eosinophils (Bld) [#/Vol] 0.17 10:3/uL 0.0-0.5 [facility] Eosinophils/100 WBC Auto (Bl d)Ordered By: KIM QUEVEDO on 11-16-2022 Eosinophils/100 WBC (Bld) 1.5 % 0.0-3.0 [facility] Erythrocyte distribution wid th Auto (RBC) [Ratio]Ordered By: KIM QUEVEDO on 11-16-2022 Erythrocyte distribution width (RBC) [Ratio] 15.4 % High 11.5-14.5 [facility] Glomerular filtration rate/1 .73 sq M.predicted [Volume Rate/Area] in Serum, Plasma orOrdered By: KIM QUEVEDO on 11-16-2022 GFR/1.73 sq M.predicted (S/P/Bld) [Vol rate/Area] 13 mL/min [facility] Comment on above: EGFR <60.0 COULD BE ABNORMAL.THE GFR IS ESTIMATED USING THE MDRD STUDY EQUATION.*NOTE* IF THE RACE OF THE PATIENT WAS UNKNOWN AT THE TIME OFREGISTRATION, AND THE PATIENT IS , MULTIPLYTHE EGFR RESULT PROVIDED BY 1.21. Hematocrit Auto (Bld) [Volum e fraction]Ordered By: KIM QUEVEDO on 11-16-2022 Hematocrit (Bld) [Volume fraction] 28.8 % Low 40.0-52.0 [facility] Immature granulocytes Auto ( Bld) [#/Vol]Ordered By: KIM QUEVEDO on 11-16-2022 Immature granulocytes (Bld) [#/Vol] 0.05 10:3/uL 0.01-0.2 [facility] Immature granulocytes/100 WB C Auto (Bld)Ordered By: KIM QUEVEDO on 11-16-2022 Immature granulocytes/100 WBC (Bld) 0.4 % 0-0.9 [facility] Lymphocytes Auto (Bld) [#/Vo l]Ordered By: KIM QUEVEDO on 11-16-2022 Lymphocytes (Bld) [#/Vol] 1.66 10:3/uL 1.5-4.0 [facility] Lymphocytes/100 WBC Auto (Bl d)Ordered By: KIM QUEVEDO on 11-16-2022 Lymphocytes/100 WBC (Bld) 14.3 % Low 20.0-40.0 [facility] MCH Auto (RBC) [Entitic mass ]Ordered By: KIM QUEVEDO on 11-16-2022 MCH (RBC) [Entitic mass] 23.6 pg Low 27-40 [facility] MCHC Auto (RBC) [Mass/Vol]Or dered By: KIM QUEVEDO on 11-16-2022 MCHC (RBC) [Mass/Vol] 29.2 g/dL Low 31-36 [facility] MCV Auto (RBC) [Entitic vol] Ordered By: KIM QUEVEDO on 11-16-2022 MCV (RBC) [Entitic vol] 80.9 CU uM 80.0-100.0 M [facility] Monocytes Auto (Bld) [#/Vol] Ordered By: KIM QUEVEDO on 11-16-2022 Monocytes (Bld) [#/Vol] 0.90 10:3/uL High 0.2-0.8 [facility] Monocytes/100 WBC Auto (Bld) Ordered By: KIM QUEVEDO on 11-16-2022 Monocytes/100 WBC (Bld) 7.7 % 4.0-10.0 M [facility] Neutrophils Auto (Bld) [#/Vo l]Ordered By: KIM QUEVEDO on 11-16-2022 Neutrophils (Bld) [#/Vol] 8.78 10:3/uL High 2.0-7.0 [facility] Neutrophils/100 WBC Auto (Bl d)Ordered By: KIM QUEVEDO on 11-16-2022 Neutrophils/100 WBC (Bld) 75.5 % High 54.0-62.0 [facility] Nucleated RBC Auto (Bld) [#/ Vol]Ordered By: KIM QUEVEDO on 11-16-2022 Nucleated RBC (Bld) [#/Vol] 0.00 10:3/uL <0 [facility] Nucleated RBC/100 WBC Auto ( Bld) [Ratio]Ordered By: KIM QUEVEDO on 11-16-2022 Nucleated RBC/100 WBC (Bld) [Ratio] 0.0 /100WBC <0 [facility] Platelets Auto (Bld) [#/Vol] Ordered By: KIM QUEVEDO on 11-16-2022 Platelets (Bld) [#/Vol] 391 10:3/uL 130-440 [facility] RBC Auto (Bld) [#/Vol]Ordere d By: KIM QUEVEDO on 11-16-2022 RBC (Bld) [#/Vol] 3.56 10:6/uL Low 4.40-5.90 [facility] Serum or plasma anion gapOrd ered By: KIM QUEVEDO on 11-16-2022 Anion gap [Moles/Vol] 16 mmol/L High 9-15 [facility] Serum or plasma calcium zainab urement (mass/volume)Ordered By: KIM QUEVEDO on 11-16-2022 Calcium [Mass/Vol] 8.6 mg/dL 8.6-10.0 [facility] Serum or plasma carbon dioxi de, total measurement (moles/volume)Ordered By: KIM QUEVEDO on 11-16-2022 CO2 [Moles/Vol] 24 mmol/L 22-29 [facility] Serum or plasma chloride eduardo surement (moles/volume)Ordered By: KIM QUEVEDO on 11-16-2022 Chloride [Moles/Vol] 91 mmol/L Low 98-107 [facility] Serum or plasma creatinine m easurement (mass/volume)Ordered By: KIM QUEVEDO on 11-16-2022 Creatinine [Mass/Vol] 4.97 mg/dL High 0.67-1.17 [facility] Serum or plasma glucose zainab urement (mass/volume)Ordered By: KIM QUEVEDO on 11-16-2022 Glucose [Mass/Vol] 56 mg/dL Low 70-100 [facility] Comment on above: INTREPRETATION FOR F ASTING BLOOD GLUCOSE: 70-100 mg/dl NORMAL GLUCOSE [id number] mg/dl IMPAIRED FASTING GLUCOSE (PRE-DIABETES)>125 mg/dl DIABETES - ON MORE THAN ONE TESTING Serum or plasma potassium me asurement (moles/volume)Ordered By: KIM QUEVEDO on 11-16-2022 Potassium [Moles/Vol] 5.5 mmol/L High 3.6-5.0 [facility] Serum or plasma sodium measu rement (moles/volume)Ordered By: KIM QUEVEDO on 11-16-2022 Sodium [Moles/Vol] 131 mmol/L Low 136-145 [facility] Serum or plasma urea nitroge n measurement (mass/volume)Ordered By: KIM QUEVEDO on 11-16-2022 Urea nitrogen [Mass/Vol] 44.3 mg/dL High 6.0-20.0 [facility] WBC Auto (Bld) [#/Vol]Ordere d By: KIM QUEVEDO on 11-16-2022 WBC (Bld) [#/Vol] 11.6 10:3/uL High 3.9-10.6 [facility] Basic Metabolic Panelon 04-2 Anion gap [Moles/Vol] 12 mmol/L Normal 9-15 [facility] Comment on above: Performed By: #### L IVP6 #### [facility] [address], [place] [id number] , Edi Irby M.D. FCAP, FASCP Calcium [Mass/Vol] 8.7 mg/dL Normal 8.6-10.0 [facility] Comment on above: Performed By: #### L IVP6 #### [facility] [address], [place] [id number] , Edi Irby M.D. FCAP, FASCP Chloride [Moles/Vol] 94 mmol/L Low 98-107 [facility] Comment on above: Performed By: #### L IVP6 #### [facility] [address], [place] [id number] , Edi Irby M.D. FCAP, FASCP CO2 [Moles/Vol] 26 mmol/L Normal 22-29 [facility] Comment on above: Performed By: #### L IVP6 #### [facility] [address], [place] [id number] , Edi Irby M.D. FCAP, FASCP Creatinine [Mass/Vol] 4.44 mg/dL High 0.67-1.17 [facility] Comment on above: Performed By: #### L IVP6 #### [address] [id number] , Edi Irby M.D. FCAP, FASCP GFR/1.73 sq M.predicted among non-blacks MDRD (S/P/Bld) [Vol rate/Area] 14 mL/min/{1.73_m2} Normal [facility] Comment on above: Result Comment: THE GFR IS ESTIMATED USING THE MDRD STUDY EQUATION. *NOTE* IF THE RACE OF THE PATIENT WAS UNKNOWN AT THE TIME OF REGISTRATION, AND THE PATIENT IS , MULTIPLY THE EGFR RESULT PROVIDED BY 1.21. EGFR <60.0 COULD BE ABNORMAL. Performed By: #### L IVP6 #### [address] [id number] , Edi Irby M.D. FCAP, FASCP Glucose [Mass/Vol] 62 mg/dL Low 70-100 [facility] Comment on above: Result Comment: INTR EPRETATION FOR FASTING BLOOD GLUCOSE: 70-100 mg/dl NORMAL GLUCOSE TOLERANCE 100-125 mg/dl IMPAIRED FASTING GLUCOSE (PRE-DIABETES) >125 mg/dl DIABETES - ON MORE THAN ONE TESTING Performed By: #### L IVP6 #### [address] [id number] , Edi Irby M.D. FCAP, FASCP Potassium [Moles/Vol] 4.9 mmol/L Normal 3.6-5.0 [facility] Comment on above: Performed By: #### L IVP6 #### [address] [id number] , Edi Irby M.D. FCAP, FASCP Sodium [Moles/Vol] 132 mmol/L Low 136-145 [facility] Comment on above: Performed By: #### L IVP6 #### [address] [id number] , Edi Irby M.D. FCAP, FASCP Urea nitrogen [Mass/Vol] 41.8 mg/dL High 6.0-20.0 [facility] Comment on above: Performed By: #### L IVP6 #### [address] [address] , Edi Irby M.D. FCAP, FASCP Basophils Auto (Bld) [#/Vol] Ordered By: ROBERTO QUEVEDO on 04-28-2023 Basophils (Bld) [#/Vol] 0.05 10:3/uL 0.0-0.2 [facility] Basophils/100 WBC Auto (Bld) Ordered By: ROBERTO QUEVEDO on 11-09-2022 Basophils/100 WBC (Bld) 0.4 % 0-1.0 [facility] Blood hemoglobin measurement (mass/volume)Ordered By: ROBERTO QUEVEDO on 11-09-2022 Hemoglobin (Bld) [Mass/Vol] 8.6 g/dL Low 13.3-17.7 [facility] CBC With Differentialon 10-14 Basophils Absolute Auto 0.05 10:3/uL Normal 0.0-0.2 [facility] Comment on above: Performed By: #### L IVP6 #### [address] [id number] , Edi Irby M.D. FCAP, FASCP Basophils/100 WBC (Bld) 0.4 % Normal 0-1.0 [facility] Comment on above: Performed By: #### L IVP6 #### [address] [id number] , Edi Irby M.D. FCAP, FASCP Differential Type? Auto Differential Normal [facility] Comment on above: Performed By: #### L IVP6 #### [address] [id number] , Edi Irby M.D. FCAP, FASCP Eosinophils Absolute Auto 0.21 10:3/uL Normal 0.0-0.5 [facility] Comment on above: Performed By: #### L IVP6 #### [facility] [address] [place] [id number] , Edi Irby M.D. FCAP, FASCP Eosinophils/100 WBC (Bld) 1.8 % Normal 0.0-3.0 [facility] Comment on above: Performed By: #### L IVP6 #### [address] [id number] , Edi Irby M.D. FCAP, FASCP Hematocrit (Bld) [Volume fraction] 28.8 % Low 40.0-52.0 [facility] Comment on above: Performed By: #### L IVP6 #### [address] [id number] , Edi Irby M.D. FCAP, FASCP Hemoglobin (Bld) [Mass/Vol] 8.6 g/dL Low 13.3-17.7 [facility] Comment on above: Performed By: #### L IVP6 #### [address] [id number] , Edi Irby M.D. FCAP, FASCP Immature Gran Absolute Auto 0.05 10:3/uL Normal 0.01-0.2 [facility] Comment on above: Performed By: #### L IVP6 #### [address] [id number] , Edi Irby M.D. FCAP, FASCP Immature granulocytes/100 WBC (Bld) 0.4 % Normal 0-0.9 [facility] Comment on above: Performed By: #### L IVP6 #### [address] [id number] , Edi Irby M.D. FCAP, FASCP Lymphocytes Absolute Auto 1.78 10:3/uL Normal 1.5-4.0 [facility] Comment on above: Performed By: #### L IVP6 #### [address] [id number] , Edi Irby M.D. FCAP, FASCP Lymphocytes/100 WBC (Bld) 15.1 % Low 20.0-40.0 [facility] Comment on above: Performed By: #### L IVP6 #### [address] [id number] , Edi Irby M.D. FCAP, FASCP MCH (RBC) [Entitic mass] 24.8 pg Low 27.0-40.0 [facility] Comment on above: Performed By: #### L IVP6 #### [address] [id number] , Edi Irby M.D. FCAP, FASCP Mean Corpusc Hgb Concentration 29.9 g/dL Low 31.0-36.0 [facility] Comment on above: Performed By: #### L IVP6 #### [address] [id number] , Edi Irby M.D. FCAP, FASCP Mean Corpuscular Volume 83.0 CU uM Normal 80.0-100.0 [facility] Comment on above: Performed By: #### L IVP6 #### [address] [id number] , Edi Irby M.D. FCAP, FASCP Monocytes Absolute Auto 0.95 10:3/uL High 0.2-0.8 [facility] Comment on above: Performed By: #### L IVP6 #### [address] [id number] , Edi Irby M.D. FCAP, FASCP Monocytes/100 WBC (Bld) 8.1 % Normal 4.0-10.0 [facility] Comment on above: Performed By: #### L IVP6 #### [address] [phone] , Edi Irby M.D. FCAP, FASCP Neutrophils Absolute Auto 8.73 10:3/uL High 2.0-7.0 [facility] Comment on above: Performed By: #### L IVP6 #### [address] [id number] , Edi Irby M.D. FCAP, FASCP Neutrophils/100 WBC (Bld) 74.2 % High 54.0-62.0 [facility] Comment on above: Performed By: #### L IVP6 #### [address] [id number] , Edi Irby M.D. FCAP, FASCP Nucleated RBC's % Auto 0.0 /100WBC Normal -0 [facility] Comment on above: Performed By: #### L IVP6 #### [address] [id number] , Edi Irby M.D. FCAP, FASCP Nucleated RBC's Absolute Auto 0.00 10:3/uL Normal -0 [facility] Comment on above: Performed By: #### L IVP6 #### [address] [phone] , Edi Irby M.D. FCAP, FASCP Platelet Count 343 10:3/uL Normal 130-440 [facility] Comment on above: Performed By: #### L IVP6 #### [address] [id number] , Edi Irby M.D. FCAP, FASCP Red Blood Cell Count 3.47 10:6/uL Low 4.40-5.90 [facility] Comment on above: Performed By: #### L IVP6 #### [address] [id number] , Edi Irby M.D. FCAP, FASCP Red Cell Distribution 15.2 High 11.5-14.5 [facility] Comment on above: Performed By: #### L IVP6 #### [facility] [address] [place] [address] , Edi Irby M.D. FCAP, FASCP White Blood Cell Count 11.8 10:3/uL High 3.9-10.6 [facility] Comment on above: Performed By: #### L IVP6 #### [facility] [address] [place] [address] , Edi Irby M.D. FCAP, FASCP Differential cell count meth od - BloodOrdered By: ROBERTO QUEVDEO on 11-09-2022 Differential cell count method Nom (Bld) Auto differential [facility] Eosinophils Auto (Bld) [#/Vo l]Ordered By: ROBERTO QUEVEDO on 11-09-2022 Eosinophils (Bld) [#/Vol] 0.21 10:3/uL 0.0-0.5 [facility] Eosinophils/100 WBC Auto (Bl d)Ordered By: ROBERTO QUEVEDO on 11-09-2022 Eosinophils/100 WBC (Bld) 1.8 % 0.0-3.0 [facility] Erythrocyte distribution wid th Auto (RBC) [Ratio]Ordered By: ROBERTO QUEVEDO on 11-09-2022 Erythrocyte distribution width (RBC) [Ratio] 15.2 % High 11.5-14.5 [facility] Glomerular filtration rate/1 .73 sq M.predicted [Volume Rate/Area] in Serum, Plasma orOrdered By: ROBERTO QUEVEDO on 11-09-2022 GFR/1.73 sq M.predicted (S/P/Bld) [Vol rate/Area] 14 mL/min [facility] Comment on above: EGFR <60.0 COULD BE ABNORMAL.THE GFR IS ESTIMATED USING THE MDRD STUDY EQUATION.*NOTE* IF THE RACE OF THE PATIENT WAS UNKNOWN AT THE TIME OFREGISTRATION, AND THE PATIENT IS , MULTIPLYTHE EGFR RESULT PROVIDED BY 1.21. Hematocrit Auto (Bld) [Volum e fraction]Ordered By: ROBERTO QUEVEDO on 04-28-2023 Hematocrit (Bld) [Volume fraction] 28.8 % Low 40.0-52.0 [facility] Immature granulocytes Auto ( Bld) [#/Vol]Ordered By: ROBERTO QUEVEDO on 11-09-2022 Immature granulocytes (Bld) [#/Vol] 0.05 10:3/uL 0.01-0.2 [facility] Immature granulocytes/100 WB C Auto (Bld)Ordered By: ROBERTO QUEVEDO on 11-09-2022 Immature granulocytes/100 WBC (Bld) 0.4 % 0-0.9 [facility] Lymphocytes Auto (Bld) [#/Vo l]Ordered By: ROBERTO QUEVEDO on 11-09-2022 Lymphocytes (Bld) [#/Vol] 1.78 10:3/uL 1.5-4.0 [facility] Lymphocytes/100 WBC Auto (Bl d)Ordered By: ROBERTO QUEVEDO on 11-09-2022 Lymphocytes/100 WBC (Bld) 15.1 % Low 20.0-40.0 [facility] MCH Auto (RBC) [Entitic mass ]Ordered By: ROBERTO QUEVEDO on 11-09-2022 MCH (RBC) [Entitic mass] 24.8 pg Low 27-40 [facility] MCHC Auto (RBC) [Mass/Vol]Or dered By: ROBERTO QUEVEDO on 11-09-2022 MCHC (RBC) [Mass/Vol] 29.9 g/dL Low 31-36 [facility] MCV Auto (RBC) [Entitic vol] Ordered By: ROBERTO QUEVEDO on 11-09-2022 MCV (RBC) [Entitic vol] 83.0 CU uM 80.0-100.0 M [facility] Monocytes Auto (Bld) [#/Vol] Ordered By: ROBERTO QUEVEDO on 11-09-2022 Monocytes (Bld) [#/Vol] 0.95 10:3/uL High 0.2-0.8 [facility] Monocytes/100 WBC Auto (Bld) Ordered By: ROBERTO QUEVEDO on 11-09-2022 Monocytes/100 WBC (Bld) 8.1 % 4.0-10.0 M [facility] Neutrophils Auto (Bld) [#/Vo l]Ordered By: ROBERTO QUEVEDO on 11-09-2022 Neutrophils (Bld) [#/Vol] 8.73 10:3/uL High 2.0-7.0 [facility] Neutrophils/100 WBC Auto (Bl d)Ordered By: ROBERTO QUEVEDO on 11-09-2022 Neutrophils/100 WBC (Bld) 74.2 % High 54.0-62.0 [facility] Nucleated RBC Auto (Bld) [#/ Vol]Ordered By: ROBERTO QUEVEDO on 11-09-2022 Nucleated RBC (Bld) [#/Vol] 0.00 10:3/uL <0 [facility] Nucleated RBC/100 WBC Auto ( Bld) [Ratio]Ordered By: ROBERTO QUEVEDO on 11-09-2022 Nucleated RBC/100 WBC (Bld) [Ratio] 0.0 /100WBC <0 [facility] Platelets Auto (Bld) [#/Vol] Ordered By: ROBERTO QUEVEDO on 11-09-2022 Platelets (Bld) [#/Vol] 343 10:3/uL 130-440 [facility] RBC Auto (Bld) [#/Vol]Ordere d By: ROBERTO QUEVEDO on 11-09-2022 RBC (Bld) [#/Vol] 3.47 10:6/uL Low 4.40-5.90 [facility] Serum or plasma anion gapOrd ered By: ROBERTO QUEVEDO on 11-09-2022 Anion gap [Moles/Vol] 12 mmol/L 9-15 [facility] Serum or plasma calcium zainab urement (mass/volume)Ordered By: ROBERTO QUEVEDO on 11-09-2022 Calcium [Mass/Vol] 8.7 mg/dL 8.6-10.0 [facility] Serum or plasma carbon dioxi de, total measurement (moles/volume)Ordered By: ROBERTO QUEVEDO on 11-09-2022 CO2 [Moles/Vol] 26 mmol/L [facility] Serum or plasma chloride eduardo surement (moles/volume)Ordered By: ROBERTO QUEVEDO on 11-09-2022 Chloride [Moles/Vol] 94 mmol/L Low 98-107 [facility] Serum or plasma creatinine m easurement (mass/volume)Ordered By: ROBERTO QUEVEDO on 11-09-2022 Creatinine [Mass/Vol] 4.44 mg/dL High 0.67-1.17 [facility] Serum or plasma glucose zainab urement (mass/volume)Ordered By: ROBERTO QUEVEDO on 11-09-2022 Glucose [Mass/Vol] 62 mg/dL Low 70-100 [facility] Comment on above: INTREPRETATION FOR F ASTING BLOOD GLUCOSE: 70-100 mg/dl NORMAL GLUCOSE [id number] mg/dl IMPAIRED FASTING GLUCOSE (PRE-DIABETES)>125 mg/dl DIABETES - ON MORE THAN ONE TESTING Serum or plasma potassium me asurement (moles/volume)Ordered By: ROBERTO QUEVEDO on 11-09-2022 Potassium [Moles/Vol] 4.9 mmol/L 3.6-5.0 [facility] Serum or plasma sodium measu rement (moles/volume)Ordered By: ROBERTO QUEVEDO on 11-09-2022 Sodium [Moles/Vol] 132 mmol/L Low 136-145 [facility] Serum or plasma urea nitroge n measurement (mass/volume)Ordered By: ROBERTO QUEVEDO on 11-09-2022 Urea nitrogen [Mass/Vol] 41.8 mg/dL High 6.0-20.0 [facility] WBC Auto (Bld) [#/Vol]Ordere d By: ROBERTO QUEVEDO on 11-09-2022 WBC (Bld) [#/Vol] 11.8 10:3/uL High 3.9-10.6 [facility] Basic Metabolic Panelon 04-2 Anion gap [Moles/Vol] 19 mmol/L High 9-15 [facility] Comment on above: Performed By: #### C HEM7, CP1 #### [facility] [address] [place] [address] , Edi Irby M.D. FCAP, FASCP Calcium [Mass/Vol] 8.7 mg/dL Normal 8.6-10.0 [facility] Comment on above: Performed By: #### C HEM7, CP1 #### [address] [id number] , Maribel PalenciaAP, FASCP Chloride [Moles/Vol] 92 mmol/L Low 98-107 [facility] Comment on above: Performed By: #### C HEM7, CP1 #### [address] [id number] , Edi Irby M.D. FCAP, FASCP CO2 [Moles/Vol] 24 mmol/L Normal 22-29 [facility] Comment on above: Performed By: #### C HEM7, CP1 #### [address] [id number] , Maribel PalenciaAP, FASCP Creatinine [Mass/Vol] 4.45 mg/dL High 0.67-1.17 [facility] Comment on above: Performed By: #### C HEMHallie, CP1 #### [address] [id number] , Edi Irby M.D. FCAP, FASCP GFR/1.73 sq M.predicted among non-blacks MDRD (S/P/Bld) [Vol rate/Area] 14 mL/min/{1.73_m2} Normal [facility] Comment on above: Result Comment: THE GFR IS ESTIMATED USING THE MDRD STUDY EQUATION. *NOTE* IF THE RACE OF THE PATIENT WAS UNKNOWN AT THE TIME OF REGISTRATION, AND THE PATIENT IS , MULTIPLY THE EGFR RESULT PROVIDED BY 1.21. EGFR <60.0 COULD BE ABNORMAL. Performed By: #### C HEM7, CP1 #### [address] [id number] , Edi Irby M.D. FCAP, FASCP Glucose [Mass/Vol] 55 mg/dL Low 70-100 [facility] Comment on above: Result Comment: INTR EPRETATION FOR FASTING BLOOD GLUCOSE: 70-100 mg/dl NORMAL GLUCOSE TOLERANCE 100-125 mg/dl IMPAIRED FASTING GLUCOSE (PRE-DIABETES) >125 mg/dl DIABETES - ON MORE THAN ONE TESTING Performed By: #### C HEM7, CP1 #### [facility] [address] [place], [place] [id number] , Edi Irby M.D. FCAP, FASCP Potassium [Moles/Vol] 5.6 mmol/L High 3.6-5.0 [facility] Comment on above: Performed By: #### C HEM7, CP1 #### [address] [id number] , Edi Irby M.D. FCAP, FASCP Sodium [Moles/Vol] 135 mmol/L Low 136-145 [facility] Comment on above: Performed By: #### Garrett HEM7, CP1 #### [address] [id number] , Edi Irby M.D. FCAP, FASCP Urea nitrogen [Mass/Vol] 42.3 mg/dL High 6.0-20.0 [facility] Comment on above: Performed By: #### Garrett HEM7, CP1 #### [address] [id number] , Edi Irby M.D. FCAP, FASCP Basophils Auto (Bld) [#/Vol] Ordered By: KIM QUEVEDO on 11-02-2022 Basophils (Bld) [#/Vol] 0.00 10:3/uL 0.0-0.2 [facility] Basophils/100 WBC Auto (Bld) Ordered By: KIM QUEVEDO on 11-02-2022 Basophils/100 WBC (Bld) 0.4 % 0-1.0 [facility] Blood hemoglobin measurement (mass/volume)Ordered By: KIM QUEVEDO on 11-02-2022 Hemoglobin (Bld) [Mass/Vol] 9.0 g/dL Low 13.3-17.7 [facility] CBC With Differentialon 10-14 Basophils/100 WBC (Bld) 0.4 % Normal 0-1.0 [facility] Comment on above: Performed By: #### L IVP6 #### [facility] [address] [place] [address] [id number] , Edi Irby M.D. FCAP, FASCP Eosinophils/100 WBC (Bld) 0.9 % Normal 0.0-3.0 [facility] Comment on above: Performed By: #### L IVP6 #### [address] [id number] , Edi Irby M.D. FCAP, FASCP Immature Gran Absolute Auto 0.06 10:3/uL Normal 0.01-0.2 [facility] Comment on above: Performed By: #### L IVP6 #### [address] [id number] , Edi Irby M.D. FCAP, FASCP Immature granulocytes/100 WBC (Bld) 0.5 % Normal 0-0.9 [facility] Comment on above: Performed By: #### L IVP6 #### [address] [id number] , Edi Irby M.D. FCAP, FASCP Cholesterol in LDL Calc [Mas s/Vol]Ordered By: KIM QUEVEDO on 11-02-2022 Cholesterol in LDL [Mass/Vol] 42 mg/dL <100 [facility] Differential cell count meth od - BloodOrdered By: KIM QUEVEDO on 11-02-2022 Differential cell count method Nom (Bld) Manual differential [facility] Eosinophils Auto (Bld) [#/Vo l]Ordered By: KIM QUEVEDO on 04-21-2023 Eosinophils (Bld) [#/Vol] 0.00 10:3/uL 0.0-0.5 [facility] Eosinophils/100 WBC Auto (Bl d)Ordered By: KIM QUEVEDO on 11-02-2022 Eosinophils/100 WBC (Bld) 0.9 % 0.0-3.0 [facility] Erythrocyte distribution wid th Auto (RBC) [Ratio]Ordered By: KIM QUEVEDO on 11-02-2022 Erythrocyte distribution width (RBC) [Ratio] 15.7 % High 11.5-14.5 [facility] Hematocrit Auto (Bld) [Volum e fraction]Ordered By: KIM QUEVEDO on 11-02-2022 Hematocrit (Bld) [Volume fraction] 31.3 % Low 40.0-52.0 [facility] Immature granulocytes Auto ( Bld) [#/Vol]Ordered By: KIM QUEVEDO on 11-02-2022 Immature granulocytes (Bld) [#/Vol] 0.06 10:3/uL 0.01-0.2 [facility] Immature granulocytes/100 WB C Auto (Bld)Ordered By: KIM QUEVEDO on 11-02-2022 Immature granulocytes/100 WBC (Bld) 0.5 % 0-0.9 [facility] - Chemistry and C hemistry - challengeOrdered By: KIM QUEVEDO on 11-02-2022 GFR/1.73 sq M.predicted among non-blacks MDRD (S/P/Bld) [Vol rate/Area] 14 mL/min/{1.73_m2} [facility] Comment on above: EGFR <60.0 COULD BE ABNORMAL.THE GFR IS ESTIMATED USING THE MDRD STUDY EQUATION.*NOTE* IF THE RACE OF THE PATIENT WAS UNKNOWN AT THE TIME OFREGISTRATION, AND THE PATIENT IS , MULTIPLYTHE EGFR RESULT PROVIDED BY 1.21. Lipid Profile Fastingon 10-14 Cholesterol [Mass/Vol] 90 mg/dL Normal 0-199 [facility] Comment on above: Performed By: #### C HEM7, CP1 #### [facility] [address] [place] [address] , Edi Irby M.D. FCAP, FASCP HDL Cholesterol Fasting 32 mg/dL Low >60 [facility] Comment on above: Performed By: #### C HEM7, CP1 #### [address] [address] , Edi Irby M.D. FCAP, FASCP LDL Cholesterol (CALC) Fasting 42 mg/dL Normal <100 [facility] Comment on above: Performed By: #### C HEM7, CP1 #### [address] [id number] , Edi Irby M.D. FCAP, FASCP Risk Ratio Fasting 2.81 Normal [facility] Comment on above: Result Comment: RISK NORMALS MEN WOMEN 1/[address] 23[address]39 11.04 TRIGLYCERIDES >400 MG/DL MAY CAUSE INCONSISTENCIES IN THE LDL. Performed By: #### C HEM7, CP1 #### [address] [address] , Edi Irby M.D. FCAP, FASCP Triglycerides Fasting 79 mg/dL Normal <150 [facility] Comment on above: Performed By: #### C HEM7, CP1 #### [address] [address] , Edi Irby M.D. FCAP, FASCP Lymphocytes Auto (Bld) [#/Vo l]Ordered By: KIM QUEVEDO on 11-02-2022 Lymphocytes (Bld) [#/Vol] 1.25 10:3/uL Low 1.5-4.0 [facility] Lymphocytes/100 WBC Auto (Bl d)Ordered By: KIM QUEVEDO on 11-02-2022 Lymphocytes/100 WBC (Bld) 11.0 % Low 20.0-40.0 [facility] MCH Auto (RBC) [Entitic mass ]Ordered By: KIM QUEVEDO on 11-02-2022 MCH (RBC) [Entitic mass] 24.1 pg Low 27-40 [facility] MCHC Auto (RBC) [Mass/Vol]Or dered By: KIM QUEVEDO on 11-02-2022 MCHC (RBC) [Mass/Vol] 28.8 g/dL Low 31-36 [facility] MCV Auto (RBC) [Entitic vol] Ordered By: KIM QUEVEDO on 11-02-2022 MCV (RBC) [Entitic vol] 83.9 CU uM 80.0-100.0 M [facility] Monocytes Auto (Bld) [#/Vol] Ordered By: KIM QUEVEDO on 11-02-2022 Monocytes (Bld) [#/Vol] 0.79 10:3/uL 0.2-0.8 [facility] Monocytes/100 WBC Auto (Bld) Ordered By: KIM QUEVEDO on 11-02-2022 Monocytes/100 WBC (Bld) 7.0 % 4.0-10.0 M [facility] Neutrophils Auto (Bld) [#/Vo l]Ordered By: KIM QUEVEDO on 11-02-2022 Neutrophils (Bld) [#/Vol] 9.34 10:3/uL High 2.0-7.0 [facility] Neutrophils/100 WBC Auto (Bl d)Ordered By: KIM QUEVEDO on 11-02-2022 Neutrophils/100 WBC (Bld) 82.0 % High 54.0-62.0 [facility] Nucleated RBC Auto (Bld) [#/ Vol]Ordered By: KIM QUEVEDO on 11-02-2022 Nucleated RBC (Bld) [#/Vol] 0.00 10:3/uL <0 [facility] Nucleated RBC/100 WBC Auto ( Bld) [Ratio]Ordered By: KIM QUEVEDO on 11-02-2022 Nucleated RBC/100 WBC (Bld) [Ratio] 0.0 /100WBC <0 [facility] Platelets Auto (Bld) [#/Vol] Ordered By: KIM QUEVEDO on 11-02-2022 Platelets (Bld) [#/Vol] 351 10:3/uL 130-440 [facility] RBC Auto (Bld) [#/Vol]Ordere d By: KIM QUEVEDO on 11-02-2022 RBC (Bld) [#/Vol] 3.73 10:6/uL Low 4.40-5.90 [facility] Serum or plasma anion gapOrd ered By: KIM QUEVEDO on 11-02-2022 Anion gap [Moles/Vol] 19 mmol/L High 9-15 [facility] Serum or plasma calcium zainab urement (mass/volume)Ordered By: KIM QUEVEDO on 11-02-2022 Calcium [Mass/Vol] 8.7 mg/dL 8.6-10.0 [facility] Serum or plasma carbon dioxi de, total measurement (moles/volume)Ordered By: KIM QUEVEDO on 11-02-2022 CO2 [Moles/Vol] 24 mmol/L - [facility] Serum or plasma cardiac hear t disease risk ratioOrdered By: KIM QUEVEDO on 11-02-2022 Cardiac heart disease risk [Ratio] 2.81 [facility] Comment on above: RISK NORMALS MEN WOM EN1/[address] 23[address]39 11.04 TRIGLYCERIDES >400 MG/DL MAY CAUSE INCONSISTENCIES IN THE LDL. Serum or plasma chloride eduardo surement (moles/volume)Ordered By: KIM QUEVEDO on 11-02-2022 Chloride [Moles/Vol] 92 mmol/L Low 98-107 [facility] Serum or plasma cholesterol measurement (mass/volume)Ordered By: KIM QUEVEDO on 11-02-2022 Cholesterol [Mass/Vol] 90 mg/dL 0-199 [facility] Serum or plasma creatinine m easurement (mass/volume)Ordered By: KIM QUEVEDO on 11-02-2022 Creatinine [Mass/Vol] 4.45 mg/dL High 0.67-1.17 [facility] Serum or plasma glucose zainab urement (mass/volume)Ordered By: KIM QUEVEDO on 11-02-2022 Glucose [Mass/Vol] 55 mg/dL Low 70-100 [facility] Comment on above: INTREPRETATION FOR F ASTING BLOOD GLUCOSE: 70-100 mg/dl NORMAL GLUCOSE [id number] mg/dl IMPAIRED FASTING GLUCOSE (PRE-DIABETES)>125 mg/dl DIABETES - ON MORE THAN ONE TESTING Serum or plasma high density lipoprotein (HDL) cholesterol measurementOrdered By: KIM QUEVEDO on 11-02-2022 Cholesterol in HDL [Mass/Vol] 32 mg/dL Low >61 [facility] Serum or plasma potassium me asurement (moles/volume)Ordered By: KIM QUEVEDO on 11-02-2022 Potassium [Moles/Vol] 5.6 mmol/L High 3.6-5.0 [facility] Serum or plasma sodium measu rement (moles/volume)Ordered By: KIM QUEVEDO on 11-02-2022 Sodium [Moles/Vol] 135 mmol/L Low 136-145 [facility] Serum or plasma triglyceride measurement (mass/volume)Ordered By: KIM QUEVEDO on 11-02-2022 Triglyceride [Mass/Vol] 79 mg/dL <150 [facility] Serum or plasma urea nitroge n measurement (mass/volume)Ordered By: KIM QUEVEDO on 11-02-2022 Urea nitrogen [Mass/Vol] 42.3 mg/dL High 6.0-20.0 [facility] WBC Auto (Bld) [#/Vol]Ordere d By: KIM QUEVEDO on 11-02-2022 WBC (Bld) [#/Vol] 11.4 10:3/uL High 3.9-10.6 [facility] Basic Metabolic Panelon 10-13 Anion gap [Moles/Vol] 13 mmol/L Normal 9-15 [facility] Comment on above: Performed By: #### C BCD #### [facility] [address] [place] [address] , Edi Irby M.D. FCAP, FASCP Calcium [Mass/Vol] 8.8 mg/dL Normal 8.6-10.0 [facility] Comment on above: Performed By: #### C BCD #### [facility] [address] [place], [place] [id number] , Edi Irby M.D. FCAP, FASCP Chloride [Moles/Vol] 92 mmol/L Low 98-107 [facility] Comment on above: Performed By: #### C BCD #### [facility] [address] [place] [address] , dEi Irby M.D. FCAP, FASCP CO2 [Moles/Vol] 27 mmol/L Normal 22-29 [facility] Comment on above: Performed By: #### C BCD #### [facility] [address] [place] [address] , Edi Irby M.D. FCAP, FASCP Creatinine [Mass/Vol] 3.60 mg/dL High 0.67-1.17 [facility] Comment on above: Performed By: #### C BCD #### [facility] [address] [place] [address] , Edi Irby M.D. FCAP, FASCP GFR/1.73 sq M.predicted among non-blacks MDRD (S/P/Bld) [Vol rate/Area] 18 mL/min/{1.73_m2} Normal [facility] Comment on above: Result Comment: THE GFR IS ESTIMATED USING THE MDRD STUDY EQUATION. *NOTE* IF THE RACE OF THE PATIENT WAS UNKNOWN AT THE TIME OF REGISTRATION, AND THE PATIENT IS , MULTIPLY THE EGFR RESULT PROVIDED BY 1.21. EGFR <60.0 COULD BE ABNORMAL. Performed By: #### C BCD #### [facility] [address] [place] [address] , Edi Irby M.D. FCAP, FASCP Glucose [Mass/Vol] 61 mg/dL Low 70-100 [facility] Comment on above: Result Comment: INTR EPRETATION FOR FASTING BLOOD GLUCOSE: 70-100 mg/dl NORMAL GLUCOSE TOLERANCE 100-125 mg/dl IMPAIRED FASTING GLUCOSE (PRE-DIABETES) >125 mg/dl DIABETES - ON MORE THAN ONE TESTING Performed By: #### C BCD #### [facility] [address] [facility], [place] [id number] , Edi Irby M.D. FCAP, FASCP Potassium [Moles/Vol] 4.8 mmol/L Normal 3.6-5.0 [facility] Comment on above: Result Comment: HEMO LYSIS PRESENT. INTERPRET RESULT WITH CAUTION. Performed By: #### C BCD #### [facility] [address] [facility], [place] [id number] , Edi Irby M.D. FCAP, FASCP Sodium [Moles/Vol] 132 mmol/L Low 136-145 [facility] Comment on above: Performed By: #### C BCD #### [facility] [address] [facility], [place] [id number] , Edi Irby M.D. FCAP, FASCP Urea nitrogen [Mass/Vol] 29.3 mg/dL High 6.0-20.0 [facility] Comment on above: Performed By: #### C BCD #### [facility] [address] [facility], [place] [id number] , Edi Irby M.D. FCAP, FASCP Basophils Auto (Bld) [#/Vol] Ordered By: KIM QUEVEDO on 10-26-2022 Basophils (Bld) [#/Vol] 0.05 10:3/uL 0.0-0.2 [facility] Basophils/100 WBC Auto (Bld) Ordered By: KIM QUEVEDO on 10-26-2022 Basophils/100 WBC (Bld) 0.6 % 0-1.0 [facility] Blood hemoglobin measurement (mass/volume)Ordered By: KIM QUEVEDO on 10-26-2022 Hemoglobin (Bld) [Mass/Vol] 8.9 g/dL Low 13.3-17.7 [facility] CBC With Differentialon 10-13 Basophils Absolute Auto 0.05 10:3/uL Normal 0.0-0.2 [facility] Comment on above: Performed By: #### L IVP6 #### [address] [id number] , Edi Irby M.D. FCAP, FASCP Basophils/100 WBC (Bld) 0.6 % Normal 0-1.0 [facility] Comment on above: Performed By: #### L IVP6 #### [address] [id number] , Edi Irby M.D. FCAP, FASCP Differential Type? Auto Differential Normal [facility] Comment on above: Performed By: #### L IVP6 #### [address] [id number] , Edi Irby M.D. FCAP, FASCP Eosinophils Absolute Auto 0.09 10:3/uL Normal 0.0-0.5 [facility] Comment on above: Performed By: #### L IVP6 #### [address] [id number] , Edi Irby M.D. FCAP, FASCP Eosinophils/100 WBC (Bld) 1.0 % Normal 0.0-3.0 [facility] Comment on above: Performed By: #### L IVP6 #### [address] [id number] , Edi Irby M.D. FCAP, FASCP Hematocrit (Bld) [Volume fraction] 30.0 % Low 40.0-52.0 [facility] Comment on above: Performed By: #### L IVP6 #### [address] [id number] , Edi Irby M.D. FCAP, FASCP Hemoglobin (Bld) [Mass/Vol] 8.9 g/dL Low 13.3-17.7 [facility] Comment on above: Performed By: #### L IVP6 #### [address] [id number] , Edi Irby M.D. FCAP, FASCP Immature Gran Absolute Auto 0.05 10:3/uL Normal 0.01-0.2 [facility] Comment on above: Performed By: #### L IVP6 #### [address] [id number] , Edi Irby M.D. FCAP, FASCP Immature granulocytes/100 WBC (Bld) 0.6 % Normal 0-0.9 [facility] Comment on above: Performed By: #### L IVP6 #### [address] [id number] , Edi Irby M.D. FCAP, FASCP Lymphocytes Absolute Auto 1.43 10:3/uL Low 1.5-4.0 [facility] Comment on above: Performed By: #### L IVP6 #### [address] [id number] , Edi Irby M.D. FCAP, FASCP Lymphocytes/100 WBC (Bld) 16.6 % Low 20.0-40.0 [facility] Comment on above: Performed By: #### L IVP6 #### [address] [id number] , Edi Irby M.D. FCAP, FASCP MCH (RBC) [Entitic mass] 24.8 pg Low 27.0-40.0 [facility] Comment on above: Performed By: #### L IVP6 #### [address] [id number] , Edi Irby M.D. FCAP, FASCP Mean Corpusc Hgb Concentration 29.7 g/dL Low 31.0-36.0 [facility] Comment on above: Performed By: #### L IVP6 #### [address] [id number] , Edi Irby M.D. FCAP, FASCP Mean Corpuscular Volume 83.6 CU uM Normal 80.0-100.0 [facility] Comment on above: Performed By: #### L IVP6 #### [address] [id number] , Edi Irby M.D. FCAP, FASCP Monocytes Absolute Auto 0.89 10:3/uL High 0.2-0.8 [facility] Comment on above: Performed By: #### L IVP6 #### [address] [phone] , Edi Irby M.D. FCAP, FASCP Monocytes/100 WBC (Bld) 10.3 % High 4.0-10.0 [facility] Comment on above: Performed By: #### L IVP6 #### [address] [id number] , Edi Irby M.D. FCAP, FASCP Neutrophils Absolute Auto 6.11 10:3/uL Normal 2.0-7.0 [facility] Comment on above: Performed By: #### L IVP6 #### [address] [id number] , Edi Irby M.D. FCAP, FASCP Neutrophils/100 WBC (Bld) 70.9 % High 54.0-62.0 [facility] Comment on above: Performed By: #### L IVP6 #### [address] [id number] , Edi Irby M.D. FCAP, FASCP Nucleated RBC's % Auto 0.0 /100WBC Normal -0 [facility] Comment on above: Performed By: #### L IVP6 #### [address] [id number] , Edi Irby M.D. FCAP, FASCP Nucleated RBC's Absolute Auto 0.00 10:3/uL Normal -0 [facility] Comment on above: Performed By: #### L IVP6 #### [address] [phone] , Edi Irby M.D. FCAP, FASCP Platelet Count 372 10:3/uL Normal 130-440 [facility] Comment on above: Performed By: #### L IVP6 #### [address] [id number] , Edi Irby M.D. FCAP, FASCP Red Blood Cell Count 3.59 10:6/uL Low 4.40-5.90 [facility] Comment on above: Performed By: #### L IVP6 #### [address] [id number] , Maribel PalenciaAP, FASCP Red Cell Distribution 15.9 High 11.5-14.5 [facility] Comment on above: Performed By: #### L IVP6 #### [address] [place] [address] , Edi Irby M.D. FCAP, FASCP White Blood Cell Count 8.6 10:3/uL Normal 3.9-10.6 [facility] Comment on above: Performed By: #### L IVP6 #### [address] [id number] , Edi J. Macatol, M.D. FCAP, FASCP Differential cell count meth od - BloodOrdered By: IKM QUEVEDO on 10-26-2022 Differential cell count method Nom (Bld) Auto differential [facility] Eosinophils Auto (Bld) [#/Vo l]Ordered By: KIM QUEVEDO on 10-26-2022 Eosinophils (Bld) [#/Vol] 0.09 10:3/uL 0.0-0.5 [facility] Eosinophils/100 WBC Auto (Bl d)Ordered By: KIM QUEVEDO on 10-26-2022 Eosinophils/100 WBC (Bld) 1.0 % 0.0-3.0 [facility] Erythrocyte distribution wid th Auto (RBC) [Ratio]Ordered By: KIM QUEVEDO on 10-26-2022 Erythrocyte distribution width (RBC) [Ratio] 15.9 % High 11.5-14.5 [facility] Hematocrit Auto (Bld) [Volum e fraction]Ordered By: KIM QUEVEDO on 10-26-2022 Hematocrit (Bld) [Volume fraction] 30.0 % Low 40.0-52.0 [facility] Immature granulocytes Auto ( Bld) [#/Vol]Ordered By: KIM QUEVEDO on 10-26-2022 Immature granulocytes (Bld) [#/Vol] 0.05 10:3/uL 0.01-0.2 [facility] Immature granulocytes/100 WB C Auto (Bld)Ordered By: KIM QUEVEDO on 10-26-2022 Immature granulocytes/100 WBC (Bld) 0.6 % 0-0.9 [facility] - Chemistry and C hemistry - challengeOrdered By: KIM QUEVEDO on 10-26-2022 GFR/1.73 sq M.predicted among non-blacks MDRD (S/P/Bld) [Vol rate/Area] 18 mL/min/{1.73_m2} [facility] Comment on above: EGFR <60.0 COULD BE ABNORMAL.THE GFR IS ESTIMATED USING THE MDRD STUDY EQUATION.*NOTE* IF THE RACE OF THE PATIENT WAS UNKNOWN AT THE TIME OFREGISTRATION, AND THE PATIENT IS , MULTIPLYTHE EGFR RESULT PROVIDED BY 1.21. Lymphocytes Auto (Bld) [#/Vo l]Ordered By: KIM QUEVEDO on 10-26-2022 Lymphocytes (Bld) [#/Vol] 1.43 10:3/uL Low 1.5-4.0 [facility] Lymphocytes/100 WBC Auto (Bl d)Ordered By: KIM QUEVEDO on 10-26-2022 Lymphocytes/100 WBC (Bld) 16.6 % Low 20.0-40.0 [facility] MCH Auto (RBC) [Entitic mass ]Ordered By: KIM QUEVEDO on 10-26-2022 MCH (RBC) [Entitic mass] 24.8 pg Low 27-40 [facility] MCHC Auto (RBC) [Mass/Vol]Or dered By: KIM QUEVEDO on 10-26-2022 MCHC (RBC) [Mass/Vol] 29.7 g/dL Low 31-36 [facility] MCV Auto (RBC) [Entitic vol] Ordered By: KIM QUEVEDO on 10-26-2022 MCV (RBC) [Entitic vol] 83.6 CU uM 80.0-100.0 M [facility] Monocytes Auto (Bld) [#/Vol] Ordered By: KIM QUEVEDO on 10-26-2022 Monocytes (Bld) [#/Vol] 0.89 10:3/uL High 0.2-0.8 [facility] Monocytes/100 WBC Auto (Bld) Ordered By: KIM QUEVEDO on 10-26-2022 Monocytes/100 WBC (Bld) 10.3 % High 4.0-10.0 [facility] Neutrophils Auto (Bld) [#/Vo l]Ordered By: KIM QUEVEDO on 10-26-2022 Neutrophils (Bld) [#/Vol] 6.11 10:3/uL 2.0-7.0 [facility] Neutrophils/100 WBC Auto (Bl d)Ordered By: KIM QUEVEDO on 10-26-2022 Neutrophils/100 WBC (Bld) 70.9 % High 54.0-62.0 [facility] Nucleated RBC Auto (Bld) [#/ Vol]Ordered By: KIM QUEVEDO on 10-26-2022 Nucleated RBC (Bld) [#/Vol] 0.00 10:3/uL <0 [facility] Nucleated RBC/100 WBC Auto ( Bld) [Ratio]Ordered By: KIM QUEVEDO on 10-26-2022 Nucleated RBC/100 WBC (Bld) [Ratio] 0.0 /100WBC <0 [facility] Platelets Auto (Bld) [#/Vol] Ordered By: KIM QUEVEDO on 10-26-2022 Platelets (Bld) [#/Vol] 372 10:3/uL 130-440 [facility] RBC Auto (Bld) [#/Vol]Ordere d By: KIM QUEVEDO on 10-26-2022 RBC (Bld) [#/Vol] 3.59 10:6/uL Low 4.40-5.90 [facility] Serum or plasma anion gapOrd ered By: KIM QUEVEDO on 10-26-2022 Anion gap [Moles/Vol] 13 mmol/L 9-15 [facility] Serum or plasma calcium zainab urement (mass/volume)Ordered By: KIM QUEVEDO on 10-26-2022 Calcium [Mass/Vol] 8.8 mg/dL 8.6-10.0 [facility] Serum or plasma carbon dioxi de, total measurement (moles/volume)Ordered By: KIM QUEVEDO on 10-26-2022 CO2 [Moles/Vol] 27 mmol/L - [facility] Serum or plasma chloride eduardo surement (moles/volume)Ordered By: KIM QUEVEDO on 10-26-2022 Chloride [Moles/Vol] 92 mmol/L Low 98-107 [facility] Serum or plasma creatinine m easurement (mass/volume)Ordered By: KIM QUEVEDO on 10-26-2022 Creatinine [Mass/Vol] 3.60 mg/dL High 0.67-1.17 [facility] Serum or plasma glucose zainab urement (mass/volume)Ordered By: KIM QUEVEDO on 10-26-2022 Glucose [Mass/Vol] 61 mg/dL Low 70-100 [facility] Comment on above: INTREPRETATION FOR F ASTING BLOOD GLUCOSE: 70-100 mg/dl NORMAL GLUCOSE [id number] mg/dl IMPAIRED FASTING GLUCOSE (PRE-DIABETES)>125 mg/dl DIABETES - ON MORE THAN ONE TESTING Serum or plasma potassium me asurement (moles/volume)Ordered By: KIM QUEVEDO on 10-26-2022 Potassium [Moles/Vol] 4.8 mmol/L 3.6-5.0 [facility] Comment on above: HEMOLYSIS PRESENT. I NTERPRET RESULT WITH CAUTION. Serum or plasma sodium measu rement (moles/volume)Ordered By: KIM QUEVEDO on 10-26-2022 Sodium [Moles/Vol] 132 mmol/L Low 136-145 [facility] Serum or plasma urea nitroge n measurement (mass/volume)Ordered By: KIM QUEVEDO on 10-26-2022 Urea nitrogen [Mass/Vol] 29.3 mg/dL High 6.0-20.0 [facility] WBC Auto (Bld) [#/Vol]Ordere d By: KIM QUEVEDO on 10-26-2022 WBC (Bld) [#/Vol] 8.6 10:3/uL 3.9-10.6 [facility] Basic Metabolic Panelon 04- Anion gap [Moles/Vol] 16 mmol/L High 9-15 [facility] Comment on above: Performed By: #### C BCD #### [facility] [address] [place], [place] [id number] , Edi Irby M.D. FCAP, FASCP Calcium [Mass/Vol] 8.9 mg/dL Normal 8.6-10.0 [facility] Comment on above: Performed By: #### C BCD #### [facility] [address] [place], [place] [id number] , Edi Irby M.D. FCAP, FASCP Chloride [Moles/Vol] 91 mmol/L Low 98-107 [facility] Comment on above: Performed By: #### C BCD #### [facility] [address] [place] [address] , Edi Irby M.D. FCAP, FASCP CO2 [Moles/Vol] 24 mmol/L Normal 22-29 [facility] Comment on above: Performed By: #### C BCD #### [facility] [address] [place] [address] , Edi Irby M.D. FCAP, FASCP Creatinine [Mass/Vol] 5.30 mg/dL High 0.67-1.17 [facility] Comment on above: Performed By: #### C BCD #### [facility] [address] [place] [address] , Edi Irby M.D. FCAP, FASCP GFR/1.73 sq M.predicted among non-blacks MDRD (S/P/Bld) [Vol rate/Area] 12 mL/min/{1.73_m2} Normal [facility] Comment on above: Result Comment: THE GFR IS ESTIMATED USING THE MDRD STUDY EQUATION. *NOTE* IF THE RACE OF THE PATIENT WAS UNKNOWN AT THE TIME OF REGISTRATION, AND THE PATIENT IS , MULTIPLY THE EGFR RESULT PROVIDED BY 1.21. EGFR <60.0 COULD BE ABNORMAL. Performed By: #### C BCD #### [facility] [address] [place] [address] , Edi Irby M.D. FCAP, FASCP Glucose [Mass/Vol] 71 mg/dL Normal 70-100 [facility] Comment on above: Result Comment: INTR EPRETATION FOR FASTING BLOOD GLUCOSE: 70-100 mg/dl NORMAL GLUCOSE TOLERANCE 100-125 mg/dl IMPAIRED FASTING GLUCOSE (PRE-DIABETES) >125 mg/dl DIABETES - ON MORE THAN ONE TESTING Performed By: #### C BCD #### [facility] [address] [place] [address] , Edi Irby M.D. FCAP, FASCP Potassium [Moles/Vol] 6.1 mmol/L High 3.6-5.0 [facility] Comment on above: Result Comment: HEMO LYSIS PRESENT. INTERPRET RESULT WITH CAUTION. Performed By: #### C BCD #### [facility] [address] [place], [place] [id number] , Edi Irby M.D. FCAP, FASCP Sodium [Moles/Vol] 131 mmol/L Low 136-145 [facility] Comment on above: Performed By: #### C BCD #### [facility] [address], [place] [id number] , Edi Irby M.D. FCAP, FASCP Urea nitrogen [Mass/Vol] 47.7 mg/dL High 6.0-20.0 [facility] Comment on above: Performed By: #### C BCD #### [facility] [address] [place] [address] , Edi Irby M.D. FCAP, FASCP Blood erythrocytes count (nu mber/volume)Ordered By: KIM QUEVEDO on 10-22-2022 RBC (Bld) [#/Vol] 3.65 10:6/uL Low 4.40-5.90 [facility] Blood hemoglobin measurement (mass/volume)Ordered By: KIM QUEVEDO on 10-22-2022 Hemoglobin (Bld) [Mass/Vol] 9.0 g/dL Low 13.3-17.7 [facility] Blood leukocytes count (numb er/volume)Ordered By: KIM QUEVEDO on 10-22-2022 WBC (Bld) [#/Vol] 9.3 10:3/uL 3.9-10.6 [facility] Blood platelet countOrdered By: KIM QUEVEDO on 10-22-2022 Platelets (Bld) [#/Vol] 430 10:3/uL 130-440 [facility] Complete Blood Counton 10-22 Hematocrit (Bld) [Volume fraction] 30.5 % Low 40.0-52.0 [facility] Comment on above: Performed By: #### C BCD #### [facility] [address], [place] [id number] , Edi Irby M.D. FCAP, FASCP Hemoglobin (Bld) [Mass/Vol] 9.0 g/dL Low 13.3-17.7 [facility] Comment on above: Performed By: #### C BCD #### [address] [id number] , Edi Irby M.D. FCAP, FASCP MCH (RBC) [Entitic mass] 24.7 pg Low 27.0-40.0 [facility] Comment on above: Performed By: #### C BCD #### [address] [id number] , Edi Irby M.D. FCAP, FASCP Mean Corpusc Hgb Concentration 29.5 g/dL Low 31.0-36.0 [facility] Comment on above: Performed By: #### C BCD #### [address] [id number] , Edi Irby M.D. FCAP, FASCP Mean Corpuscular Volume 83.6 CU uM Normal 80.0-100.0 [facility] Comment on above: Performed By: #### C BCD #### [address] [id number] , Maribel Palencia, FASCP Platelet Count 430 10:3/uL Normal 130-440 [facility] Comment on above: Performed By: #### C BCD #### [address] [id number] , Edi Irby M.D. FCAP, FASCP Red Blood Cell Count 3.65 10:6/uL Low 4.40-5.90 [facility] Comment on above: Performed By: #### C BCD #### [address] [id number] , Edi Irby M.D. FCAP, FASCP Red Cell Distribution 15.8 High 11.5-14.5 [facility] Comment on above: Performed By: #### C BCD #### [facility] [address] [place] [address] , Edi Irby M.D. FCAP, FASCP White Blood Cell Count 9.3 10:3/uL Normal 3.9-10.6 [facility] Comment on above: Performed By: #### C BCD #### [facility] [address] [place] [address] , Edi Irby M.D. FCAP, FASCP Determination of erythrocyte mean corpuscular volume (MCV)Ordered By: KIM QUEVEDO on 10-22-2022 MCV (RBC) [Entitic vol] 83.6 CU uM 80.0-100.0 [facility] Erythrocyte distribution wid th standard deviationOrdered By: KIM QUEVEDO on 10-22-2022 Erythrocyte distribution width (RBC) [Entitic vol] 15.8 fL High 11.5-14.5 [facility] Erythrocyte mean corpuscular hemoglobin concentration measurement (mass/volume)Ordered By: KIM QUEVEDO on 10-22-2022 MCHC (RBC) [Mass/Vol] 29.5 g/dL Low 31-36 [facility] Hematocrit Auto (Bld) [Volum e fraction]Ordered By: KIM QUEVEDO on 10-22-2022 Hematocrit (Bld) [Volume fraction] 30.5 % Low 40.0-52.0 [facility] - Chemistry and C hemistry - challengeOrdered By: KIM QUEVEDO on 10-22-2022 GFR/1.73 sq M.predicted among non-blacks MDRD (S/P/Bld) [Vol rate/Area] 12 mL/min/{1.73_m2} [facility] Comment on above: EGFR <60.0 COULD BE ABNORMAL.THE GFR IS ESTIMATED USING THE MDRD STUDY EQUATION.*NOTE* IF THE RACE OF THE PATIENT WAS UNKNOWN AT THE TIME OFREGISTRATION, AND THE PATIENT IS , MULTIPLYTHE EGFR RESULT PROVIDED BY 1.21. Laboratory - Hematology and Cell countsOrdered By: KIM QUEVEDO on 10-22-2022 MCH (RBC) [Entitic mass] 24.7 pg Low 27-40 [facility] Serum or plasma anion gapOrd ered By: KIM QUEVEDO on 10-22-2022 Anion gap [Moles/Vol] 16 mmol/L High 9-15 [facility] Serum or plasma calcium zainab urement (mass/volume)Ordered By: KIM QUEVEDO on 10-22-2022 Calcium [Mass/Vol] 8.9 mg/dL 8.6-10.0 [facility] Serum or plasma carbon dioxi de, total measurement (moles/volume)Ordered By: KIM QUEVEDO on 10-22-2022 CO2 [Moles/Vol] 24 mmol/L 22-29 [facility] Serum or plasma chloride eduardo surement (moles/volume)Ordered By: KIM QUEVEDO on 10-22-2022 Chloride [Moles/Vol] 91 mmol/L Low 98-107 [facility] Serum or plasma creatinine m easurement (mass/volume)Ordered By: KIM QUEVEDO on 10-22-2022 Creatinine [Mass/Vol] 5.30 mg/dL High 0.67-1.17 [facility] Serum or plasma glucose zainab urement (mass/volume)Ordered By: KIM QUEVEDO on 10-22-2022 Glucose [Mass/Vol] 71 mg/dL 70-100 [facility] Comment on above: INTREPRETATION FOR F ASTING BLOOD GLUCOSE: 70-100 mg/dl NORMAL GLUCOSE [id number] mg/dl IMPAIRED FASTING GLUCOSE (PRE-DIABETES)>125 mg/dl DIABETES - ON MORE THAN ONE TESTING Serum or plasma potassium me asurement (moles/volume)Ordered By: KIM QUEVEDO on 10-22-2022 Potassium [Moles/Vol] 6.1 mmol/L High 3.6-5.0 [facility] Comment on above: HEMOLYSIS PRESENT. I NTERPRET RESULT WITH CAUTION. Serum or plasma sodium measu rement (moles/volume)Ordered By: KIM QUEVEDO on 10-22-2022 Sodium [Moles/Vol] 131 mmol/L Low 136-145 [facility] Serum or plasma urea nitroge n measurement (mass/volume)Ordered By: KIM QEUVEDO on 10-22-2022 Urea nitrogen [Mass/Vol] 47.7 mg/dL High 6.0-20.0 [facility] Basic Metabolic Panelon 03-3 Anion gap [Moles/Vol] 15 mmol/L Normal 9-15 [facility] Comment on above: Performed By: #### C HEM7 #### [address] [id number] , Maribel PalenciaAP, FASCP Calcium [Mass/Vol] 8.7 mg/dL Normal 8.6-10.0 [facility] Comment on above: Performed By: #### C HEM7 #### [address] [id number] , Maribel PalenciaAP, FASCP Chloride [Moles/Vol] 93 mmol/L Low 98-107 [facility] Comment on above: Performed By: #### C HEM7 #### [address] [id number] , Edi Irby M.D. FCAP, FASCP CO2 [Moles/Vol] 25 mmol/L Normal 22-29 [facility] Comment on above: Performed By: #### C HEM7 #### [address] [id number] , Edi Irby M.D. FCAP, FASCP Creatinine [Mass/Vol] 4.27 mg/dL High 0.67-1.17 [facility] Comment on above: Performed By: #### C HEM7 #### [address] [id number] , Edi Irby M.D. FCAP, FASCP GFR/1.73 sq M.predicted among non-blacks MDRD (S/P/Bld) [Vol rate/Area] 15 mL/min/{1.73_m2} Normal [facility] Comment on above: Result Comment: THE GFR IS ESTIMATED USING THE MDRD STUDY EQUATION. *NOTE* IF THE RACE OF THE PATIENT WAS UNKNOWN AT THE TIME OF REGISTRATION, AND THE PATIENT IS , MULTIPLY THE EGFR RESULT PROVIDED BY 1.21. EGFR <60.0 COULD BE ABNORMAL. Performed By: #### C HEM7 #### [address] [address] , Edi Irby M.D. FCAP, FASCP Glucose [Mass/Vol] 82 mg/dL Normal 70-100 [facility] Comment on above: Result Comment: INTR EPRETATION FOR FASTING BLOOD GLUCOSE: 70-100 mg/dl NORMAL GLUCOSE TOLERANCE 100-125 mg/dl IMPAIRED FASTING GLUCOSE (PRE-DIABETES) >125 mg/dl DIABETES - ON MORE THAN ONE TESTING Performed By: #### C HEM7 #### [address] [address] , Maribel PalenciaAP, FASCP Potassium [Moles/Vol] 5.3 mmol/L High 3.6-5.0 [facility] Comment on above: Performed By: #### C HEM7 #### [facility] [address] [place] [address] , Edi Irby M.D. FCAP, FASCP Sodium [Moles/Vol] 133 mmol/L Low 136-145 [facility] Comment on above: Performed By: #### C HEM7 #### [address] [address] , Edi Irby M.D. FCAP, FASCP Urea nitrogen [Mass/Vol] 36.5 mg/dL High 6.0-20.0 [facility] Comment on above: Performed By: #### C HEM7 #### [facility] [address] [place] [address] , Edi Irby M.D. FCAP, FASCP Blood erythrocytes count (nu mber/volume)Ordered By: KIM QUEVEDO on 10-12-2022 RBC (Bld) [#/Vol] 3.41 10:6/uL Low 4.40-5.90 [facility] Blood hemoglobin measurement (mass/volume)Ordered By: KIM QUEVEDO on 10-12-2022 Hemoglobin (Bld) [Mass/Vol] 8.7 g/dL Low 13.3-17.7 [facility] Blood leukocytes count (numb er/volume)Ordered By: KIM QUEVEDO on 10-12-2022 WBC (Bld) [#/Vol] 12.4 10:3/uL High 3.9-10.6 [facility] Blood platelet countOrdered By: KIM QUEVEDO on 10-12-2022 Platelets (Bld) [#/Vol] 276 10:3/uL 130-440 [facility] Complete Blood Counton 10-12 Hematocrit (Bld) [Volume fraction] 28.7 % Low 40.0-52.0 [facility] Comment on above: Performed By: #### C BCD #### [facility] [address] [place] [address] , Edi Irby M.D. FCAP, FASCP Hemoglobin (Bld) [Mass/Vol] 8.7 g/dL Low 13.3-17.7 [facility] Comment on above: Performed By: #### C BCD #### [address] [address] , Edi Irby M.D. FCAP, FASCP MCH (RBC) [Entitic mass] 25.5 pg Low 27.0-40.0 [facility] Comment on above: Performed By: #### C BCD #### [address], [place] [id number] , Edi Irby M.D. FCAP, FASCP Mean Corpusc Hgb Concentration 30.3 G/DL Low 31.0-36.0 [facility] Comment on above: Performed By: #### C BCD #### [address] [id number] , Edi Irby M.D. FCAP, FASCP Mean Corpuscular Volume 84.2 CU uM Normal 80.0-100.0 [facility] Comment on above: Performed By: #### C ANI #### [address], [place] [id number] , Edi Irby M.D. FCAP, FASCP Platelet Count 276 10:3/uL Normal 130-440 [facility] Comment on above: Performed By: #### C BCD #### [address], [place] [id number] , Edi Irby M.D. FCAP, FASCP Red Blood Cell Count 3.41 10:6/uL Low 4.40-5.90 [facility] Comment on above: Performed By: #### C MAYURID #### [address], [place] [id number] , Edi Irby M.D. FCAP, FASCP Red Cell Distribution 16.5 High 11.5-14.5 [facility] Comment on above: Performed By: #### C BCD #### [address], [place] [id number] , Edi Irby M.D. FCAP, FASCP White Blood Cell Count 12.4 10:3/uL High 3.9-10.6 [facility] Comment on above: Performed By: #### C BCD #### [address] [place] [address] , Edi Irby M.D. FCAP, FASCP Determination of erythrocyte mean corpuscular volume (MCV)Ordered By: KIM QUEVEDO on 10-12-2022 MCV (RBC) [Entitic vol] 84.2 CU uM 80.0-100.0 M [facility] Erythrocyte distribution wid th standard deviationOrdered By: KIM QUEVEDO on 10-12-2022 Erythrocyte distribution width (RBC) [Entitic vol] 16.5 fL High 11.5-14.5 [facility] Erythrocyte mean corpuscular hemoglobin concentration measurement (mass/volume)Ordered By: KIM QUEVEDO on 10-12-2022 MCHC (RBC) [Mass/Vol] 30.3 g/dL Low 31-36 [facility] Hematocrit Auto (Bld) [Volum e fraction]Ordered By: KIM QUEVEDO on 10-12-2022 Hematocrit (Bld) [Volume fraction] 28.7 % Low 40.0-52.0 [facility] - Chemistry and C hemistry - challengeOrdered By: KIM QUEVEDO on 10-12-2022 GFR/1.73 sq M.predicted among non-blacks MDRD (S/P/Bld) [Vol rate/Area] 15 mL/min/{1.73_m2} [facility] Comment on above: EGFR <60.0 COULD BE ABNORMAL.THE GFR IS ESTIMATED USING THE MDRD STUDY EQUATION.*NOTE* IF THE RACE OF THE PATIENT WAS UNKNOWN AT THE TIME OFREGISTRATION, AND THE PATIENT IS , MULTIPLYTHE EGFR RESULT PROVIDED BY 1.21. Laboratory - Hematology and Cell countsOrdered By: KIM QUEVEDO on 10-12-2022 MCH (RBC) [Entitic mass] 25.5 pg Low 27-40 [facility] Serum or plasma anion gapOrd ered By: KIM QUEVEDO on 10-12-2022 Anion gap [Moles/Vol] 15 mmol/L 9-15 [facility] Serum or plasma calcium zainab urement (mass/volume)Ordered By: KIM QUEVEDO on 10-12-2022 Calcium [Mass/Vol] 8.7 mg/dL 8.6-10.0 [facility] Serum or plasma carbon dioxi de, total measurement (moles/volume)Ordered By: KIM QUEVEDO on 10-12-2022 CO2 [Moles/Vol] 25 mmol/L - [facility] Serum or plasma chloride eduardo surement (moles/volume)Ordered By: KIM QUEVEDO on 10-12-2022 Chloride [Moles/Vol] 93 mmol/L Low 98-107 [facility] Serum or plasma creatinine m easurement (mass/volume)Ordered By: KIM QUEVEDO on 10-12-2022 Creatinine [Mass/Vol] 4.27 mg/dL High 0.67-1.17 [facility] Serum or plasma glucose zainab urement (mass/volume)Ordered By: KIM QUEVEDO on 10-12-2022 Glucose [Mass/Vol] 82 mg/dL 70-100 [facility] Comment on above: INTREPRETATION FOR F ASTING BLOOD GLUCOSE: 70-100 mg/dl NORMAL GLUCOSE [id number] mg/dl IMPAIRED FASTING GLUCOSE (PRE-DIABETES)>125 mg/dl DIABETES - ON MORE THAN ONE TESTING Serum or plasma potassium me asurement (moles/volume)Ordered By: KIM QUEVEDO on 10-12-2022 Potassium [Moles/Vol] 5.3 mmol/L High 3.6-5.0 [facility] Serum or plasma sodium measu rement (moles/volume)Ordered By: KIM QUEVEDO on 10-12-2022 Sodium [Moles/Vol] 133 mmol/L Low 136-145 [facility] Serum or plasma urea nitroge n measurement (mass/volume)Ordered By: KIM QUEVEDO on 10-12-2022 Urea nitrogen [Mass/Vol] 36.5 mg/dL High 6.0-20.0 [facility] - Chemistry and C hemistry - challengeOrdered By: ROBERTO QUEVEDO on 10-05-2022 GFR/1.73 sq M.predicted among non-blacks MDRD (S/P/Bld) [Vol rate/Area] 16 mL/min/{1.73_m2} [facility] Comment on above: EGFR <60.0 COULD BE ABNORMAL.THE GFR IS ESTIMATED USING THE MDRD STUDY EQUATION.*NOTE* IF THE RACE OF THE PATIENT WAS UNKNOWN AT THE TIME OFREGISTRATION, AND THE PATIENT IS , MULTIPLYTHE EGFR RESULT PROVIDED BY 1.21. Serum or plasma anion gapOrd ered By: ROBERTO QUEVEDO on 10-05-2022 Anion gap [Moles/Vol] 17 mmol/L High 9-15 [facility] Serum or plasma calcium zainab urement (mass/volume)Ordered By: ROBERTO QUEVEDO on 10-05-2022 Calcium [Mass/Vol] 8.6 mg/dL 8.6-10.0 [facility] Serum or plasma carbon dioxi de, total measurement (moles/volume)Ordered By: ROBERTO QUEVEDO on 10-05-2022 CO2 [Moles/Vol] 22 mmol/L [facility] Serum or plasma chloride eduardo surement (moles/volume)Ordered By: ROBERTO QUEVEDO on 10-05-2022 Chloride [Moles/Vol] 95 mmol/L Low 98-107 [facility] Serum or plasma creatinine m easurement (mass/volume)Ordered By: ROBERTO QUEVEDO on 10-05-2022 Creatinine [Mass/Vol] 4.04 mg/dL High 0.67-1.17 [facility] Serum or plasma glucose zainab urement (mass/volume)Ordered By: ROBERTO QUEVEDO on 10-05-2022 Glucose [Mass/Vol] 59 mg/dL Low 70-100 [facility] Comment on above: INTREPRETATION FOR F ASTING BLOOD GLUCOSE: 70-100 mg/dl NORMAL GLUCOSE [id number] mg/dl IMPAIRED FASTING GLUCOSE (PRE-DIABETES)>125 mg/dl DIABETES - ON MORE THAN ONE TESTING Serum or plasma potassium me asurement (moles/volume)Ordered By: ROBERTO QUEVEDO on 10-05-2022 Potassium [Moles/Vol] 5.5 mmol/L High 3.6-5.0 [facility] Comment on above: HEMOLYSIS PRESENT. I NTERPRET RESULT WITH CAUTION. Serum or plasma sodium measu rement (moles/volume)Ordered By: ROBERTO QUEVEDO on 10-05-2022 Sodium [Moles/Vol] 134 mmol/L Low 136-145 [facility] Serum or plasma urea nitroge n measurement (mass/volume)Ordered By: ROBERTO QUEVEDO on 10-05-2022 Urea nitrogen [Mass/Vol] 42.0 mg/dL High 6.0-20.0 [facility] Blood erythrocytes count (nu mber/volume)Ordered By: KIM QUEVEDO on 05-22-2022 RBC (Bld) [#/Vol] 2.79 10:6/uL Low 4.40-5.90 [facility] Blood hemoglobin measurement (mass/volume)Ordered By: KIM QUEVEDO on 05-22-2022 Hemoglobin (Bld) [Mass/Vol] 8.3 g/dL Low 13.3-17.7 [facility] Blood leukocytes count (numb er/volume)Ordered By: KIM QUEVEDO on 05-22-2022 WBC (Bld) [#/Vol] 7.8 10:3/uL 3.9-10.6 [facility] Blood platelet countOrdered By: KIM QUEVEDO on 05-22-2022 Platelets (Bld) [#/Vol] 327 10:3/uL 130-440 [facility] Cholesterol in LDL Calc [Mas s/Vol]Ordered By: KIM QUEVEDO on 05-22-2022 Cholesterol in LDL [Mass/Vol] 17 mg/dL <100 [facility] Determination of erythrocyte mean corpuscular volume (MCV)Ordered By: KIM QUEVEDO on 05-22-2022 MCV (RBC) [Entitic vol] 98.9 CU uM 80.0-100.0 M [facility] Erythrocyte distribution wid th standard deviationOrdered By: KIM QUEVEDO on 05-22-2022 Erythrocyte distribution width (RBC) [Entitic vol] 19.5 fL High 11.5-14.5 [facility] Erythrocyte mean corpuscular hemoglobin concentration measurement (mass/volume)Ordered By: KIM QUEVEDO on 05-22-2022 MCHC (RBC) [Mass/Vol] 30.1 g/dL Low 31-36 [facility] HbA1c HPLC (Bld) [Mass fract ion]Ordered By: KIM QUEVEDO on 05-22-2022 HbA1c (Bld) [Mass fraction] 4.8 % 4.4-5.6 [facility] Comment on above: PRE-DIABETES 5.7-6.4 DIABETES > OR = 6.5 Hematocrit Auto (Bld) [Volum e fraction]Ordered By: KIM QUEVEDO on 05-22-2022 Hematocrit (Bld) [Volume fraction] 27.6 % Low 40.0-52.0 [facility] - Chemistry and C hemistry - challengeOrdered By: KIM QUEVEDO on 05-22-2022 GFR/1.73 sq M.predicted among non-blacks MDRD (S/P/Bld) [Vol rate/Area] 19 mL/min/{1.73_m2} [facility] Comment on above: EGFR <60.0 COULD BE ABNORMAL.THE GFR IS ESTIMATED USING THE MDRD STUDY EQUATION.*NOTE* IF THE RACE OF THE PATIENT WAS UNKNOWN AT THE TIME OFREGISTRATION, AND THE PATIENT IS , MULTIPLYTHE EGFR RESULT PROVIDED BY 1.21. Laboratory - Hematology and Cell countsOrdered By: KIM QUEVEDO on 05-22-2022 MCH (RBC) [Entitic mass] 29.7 pg 27-40 [facility] Serum or plasma anion gapOrd ered By: KIM QUEVEDO on 05-22-2022 Anion gap [Moles/Vol] 12 mmol/L 9- [facility] Serum or plasma calcium zainab urement (mass/volume)Ordered By: KIM QUEVEDO on 05-22-2022 Calcium [Mass/Vol] 8.8 mg/dL 8.6-10.0 [facility] Serum or plasma carbon dioxi de, total measurement (moles/volume)Ordered By: KIM QUEVEDO on 05-22-2022 CO2 [Moles/Vol] 27 mmol/L 22- [facility] Serum or plasma cardiac hear t disease risk ratioOrdered By: KIM QUEVEDO on 05-22-2022 Cardiac heart disease risk [Ratio] 2.83 [facility] Comment on above: RISK NORMALS MEN WOM EN1/[address] 23[address]39 11.04 TRIGLYCERIDES >400 MG/DL MAY CAUSE INCONSISTENCIES IN THE LDL. Serum or plasma chloride eduardo surement (moles/volume)Ordered By: KIM QUEVEDO on 05-22-2022 Chloride [Moles/Vol] 98 mmol/L 98-107 [facility] Serum or plasma cholesterol measurement (mass/volume)Ordered By: KIM QUEVEDO on 05-22-2022 Cholesterol [Mass/Vol] 68 mg/dL 0-199 [facility] Serum or plasma creatinine m easurement (mass/volume)Ordered By: KIM QUEVEDO on 05-22-2022 Creatinine [Mass/Vol] 3.54 mg/dL High 0.67-1.17 [facility] Serum or plasma glucose zainab urement (mass/volume)Ordered By: KIM QUEVEDO on 05-22-2022 Glucose [Mass/Vol] 75 mg/dL 70-100 [facility] Comment on above: INTREPRETATION FOR F ASTING BLOOD GLUCOSE: 70-100 mg/dl NORMAL GLUCOSE [id number] mg/dl IMPAIRED FASTING GLUCOSE (PRE-DIABETES)>125 mg/dl DIABETES - ON MORE THAN ONE TESTING Serum or plasma high density lipoprotein (HDL) cholesterol measurementOrdered By: KIM QUEVEDO on 05-22-2022 Cholesterol in HDL [Mass/Vol] 24 mg/dL Low >61 [facility] Serum or plasma potassium me asurement (moles/volume)Ordered By: KIM QUEVEDO on 05-22-2022 Potassium [Moles/Vol] 4.2 mmol/L 3.6-5.0 [facility] Serum or plasma sodium measu rement (moles/volume)Ordered By: KIM QUEVEDO on 05-22-2022 Sodium [Moles/Vol] 137 mmol/L 136-145 [facility] Serum or plasma triglyceride measurement (mass/volume)Ordered By: KIM QUEVEDO on 05-22-2022 Triglyceride [Mass/Vol] 135 mg/dL <150 M [facility] Serum or plasma urea nitroge n measurement (mass/volume)Ordered By: KIM QUEVEDO on 05-22-2022 Urea nitrogen [Mass/Vol] 12.7 mg/dL 6.0-20.0 [facility] POC Urinalysison 09-07-2021 Bilirubin Ql (U) Negative Negative - Negative [employer] Other Phone: Glucose Ql (U) Negative Negative - Negative [employer] Other Phone: Hemoglobin Ql (U) 2+ Negative - Negative [employer] Other Phone: Nitrite Ql (U) Negative Negative - Negative [employer] Other Phone: pH (U) 7.0 [pH] 5.0 - 7.5 [employer] Other Phone: Protein Ql (U) 2+ Negative - Negative [employer] Other Phone: Specific gravity (U) [Rel density] 1.020 1.005 - 1.030 [employer] Other Phone: Urobilinogen (U) [Mass/Vol] Negative 0.1 - 1.0 Eu/dl [employer] Other Phone: POC Urinalysis Negative Negative - Negative [employer] Other Phone: POC Urinalysis 3+ Negative - Negative [employer] Other Phone: Otheron 10-01-2019 GFR/1.73 sq M.predicted MDRD (S/P/Bld) [Vol rate/Area] 12 mL/min/{1.73_m2} [facility] Work Phone: Comment on above: EGFR <60.0 COULD BE ABNORMAL.THE GFR IS ESTIMATED USING THE MDRD STUDY EQUATION.*NOTE* IF THE RACE OF THE PATIENT WAS UNKNOWN AT THE TIME OFREGISTRATION, AND THE PATIENT IS , MULTIPLYTHE EGFR RESULT PROVIDED BY 1.21. Serum or plasma anion gapon 10-01-2019 Anion gap [Moles/Vol] 18 mmol/L High 9-15 [facility] Work Phone: Serum or plasma calcium zainab urement (mass/volume)on 10-01-2019 Calcium [Mass/Vol] 7.4 mg/dL Low 8.6-10.0 [facility] Work Phone: Serum or plasma carbon dioxi de, total measurement (moles/volume)on 10-01-2019 CO2 [Moles/Vol] 20 mmol/L Low 22-29 [facility] Work Phone: Serum or plasma chloride eduardo surement (moles/volume)on 10-01-2019 Chloride [Moles/Vol] 91 mmol/L Low 98-107 [facility] Work Phone: Serum or plasma creatinine m easurement (mass/volume)on 10-01-2019 Creatinine [Mass/Vol] 5.35 mg/dL High 0.67-1.17 [facility] Work Phone: Serum or plasma glucose zainab urement (mass/volume)on 10-01-2019 Glucose [Mass/Vol] 410 mg/dL High 70-100 [facility] Work Phone: Comment on above: Alert Value called junaid PENA, DATE: 2019-10-01 14:13:19 BY:Robbie Read Back? YES ALERT VALUE ATTENTION NURSING ALERT VALUE NOTIFY PHYSICIAN WITHIN 30 MINUTES OF RECEIVING THIS REPORTINTREPRETATION FOR FASTING BLOOD GLUCOSE: 70-100 mg/dl NORMAL GLUCOSE [id number] mg/dl IMPAIRED FASTING GLUCOSE (PRE-DIABETES)>125 mg/dl DIABETES - ON MORE THAN ONE TESTING Serum or plasma potassium me asurement (moles/volume)on 10-01-2019 Potassium [Moles/Vol] 3.6 mmol/L 3.6-5.0 [facility] Work Phone: Serum or plasma sodium measu rement (moles/volume)on 10-01-2019 Sodium [Moles/Vol] 129 mmol/L Low 136-145 [facility] Work Phone: Serum or plasma urea nitroge n measurement (mass/volume)on 10-01-2019 Urea nitrogen [Mass/Vol] 43.6 mg/dL High 6.0-20.0 [facility] Work Phone: Whole blood glucose measurem ent using handheld analyzer (mass/volume)on 10-01-2019 Glucose [Mass/Vol] 235 mg/dL High 70-100 [facility] Work Phone: Comment on above: Delta: 369 on -[phone] Vital Signs Date Time Vital Sign Value Performing Clinician Facility 12-30-2024 18:13-0400 Body temperature 98.3 [degF] Dr. Bella Oneal MD Work Phone: [facility] 12-30-2024 18:13-0400 Diastolic blood pressure 91 mm[Hg] Dr. Bella Oneal MD Work Phone: [facility] 12-30-2024 18:13-0400 Heart rate 95 /min Dr. Bella Oneal MD Work Phone: [facility] 12-30-2024 18:13-0400 Respiratory rate 18 /min Dr. Bella Oneal MD Work Phone: [facility] 12-30-2024 18:13-0400 SaO2% (BldA) [Mass fraction] 94 % Dr. Bella Oneal MD Work Phone: [facility] 12-30-2024 18:13-0400 Systolic blood pressure 153 mm[Hg] Dr. Bella Oneal MD Work Phone: [facility] 12-30-2024 04:51-0400 Inhaled oxygen flow rate 2 L/min Dr. Bella Oneal MD Work Phone: [facility] 12-30-2024 04:41-0400 Body height 149.[address] Bella Oneal MD Work Phone: [facility] 12-30-2024 04:41-0400 Body mass index (BMI) [Ratio] 51.8 kg/m2 Dr. Bella Oneal MD Work Phone: [facility] 12-30-2024 04:41-0400 Body weight 116.[address] Bella Oneal MD Work Phone: [facility] 12-08-2024 08:32-0400 Body mass index (BMI) [Ratio] 48.4 kg/m2 Dr. Bella Oneal MD Work Phone: [facility] 12-08-2024 08:32-0400 Body weight 108.[address] Bella Oneal MD Work Phone: [facility] 12-08-2024 08:32-0400 Diastolic blood pressure 88 mm[Hg] Dr. Bella Oneal MD Work Phone: [facility] 12-08-2024 08:32-0400 Heart rate 103 /min Dr. Bella Oneal MD Work Phone: [facility] 12-08-2024 08:32-0400 Respiratory rate 18 /min Dr. Bella Oneal MD Work Phone: [facility] 12-08-2024 08:32-0400 Systolic blood pressure 131 mm[Hg] Dr. Bella Oneal MD Work Phone: [facility] 12-03-2024 13:01-0400 Body height 149.[address] Bella Oneal MD Work Phone: [facility] 12-03-2024 13:01-0400 Body mass index (BMI) [Ratio] 48.4 kg/m2 Dr. Bella Oneal MD Work Phone: [facility] 12-03-2024 13:01-0400 Body weight 108.[address] Bella Oneal MD Work Phone: [facility] 07-23-2024 15:47-0500 Heart rate 89 /min DR ZAIN FERRO MD [facility] 07-23-2024 15:47-0500 Respiratory rate 18 /min DR ZAIN FERRO MD [facility] 07-23-2024 14:40-0500 Body temperature 97.52 [degF] DR ZAIN FERRO MD [facility] 07-23-2024 14:40-0500 Body weight 104.[address] ZAIN FERRO MD [address] [place] [address] 07-23-2024 14:40-0500 Diastolic Blood Pressure Non-Invasive 98 mm[Hg] DR ZAIN FERRO MD [address] [place] [address] 07-23-2024 14:40-0500 Heart rate 84 /min DR ZAIN FERRO MD [address] [place] [address] 07-23-2024 14:40-0500 Reason For Taking VItal Signs DR ZAIN FERRO MD [address] [place] [address] 07-23-2024 14:40-0500 Respiratory rate 16 /min DR ZAIN FERRO MD [address] [place] [address] 07-23-2024 14:40-0500 Systolic Blood Pressure Non-Invasive 166 mm[Hg] DR ZAIN FERRO MD [address] [place] [address] 07-23-2024 14:00-0500 Diastolic Blood Pressure Non-Invasive 90 mm[Hg] DR ZAIN FERRO MD [address] [place] [address] 07-23-2024 14:00-0500 Systolic Blood Pressure Non-Invasive 137 mm[Hg] DR ZAIN FERRO MD [address] [place] [address] 07-23-2024 13:40-0500 Diastolic Blood Pressure Non-Invasive 94 mm[Hg] DR ZAIN FERRO MD [address] [place] [address] 07-23-2024 13:40-0500 Heart rate 84 /min DR ZAIN FERRO MD [address] [place] [address] 07-23-2024 13:40-0500 Systolic Blood Pressure Non-Invasive 146 mm[Hg] DR ZAIN FERRO MD [address] [place] [address] 07-23-2024 11:10-0500 Body temperature 97.88 [degF] DR ZAIN FERRO MD [address] [place] [address] 07-23-2024 11:10-0500 Body weight 107.[address] ZAIN FERRO MD [address] [place] [address] 07-23-2024 11:10-0500 Heart rate 86 /min DR ZAIN FERRO MD [address] [place] [address] 07-23-2024 11:10-0500 Reason For Taking VItal Signs DR ZAIN FERRO MD [address] [place] [address] 07-23-2024 11:10-0500 Respiratory rate 18 /min DR ZAIN FERRO MD [address] [place] [address] 07-23-2024 07:34-0500 Heart rate 96 /min DR ZAIN FERRO MD [address] [place] [address] 07-23-2024 04:06-0500 Body temperature 97.88 [degF] DR ZAIN FERRO MD [address] [place] [address] 07-23-2024 04:06-0500 Reason For Taking VItal Signs DR ZAIN FERRO MD [address] [place] [address] 07-22-2024 19:33-0500 Body temperature 97.88 [degF] DR ZAIN FERRO MD [address] [place] [address] 07-22-2024 15:49-0500 Body temperature 97.7 [degF] DR ZAIN FERRO MD [address] [place] [address] 07-22-2024 13:09-0500 Body temperature 97.88 [degF] DR ZAIN FERRO MD [address] [place] [address] 07-22-2024 13:09-0500 Body weight 108.[address] ZAIN FERRO MD [address] [place] [address] 07-22-2024 06:19-0500 Body temperature 98.24 [degF] DR ZAIN FERRO MD [address] [place] [address] 07-22-2024 06:16-0500 Body height 149.[address] ZAIN FERRO MD [address] [place] [address] 07-22-2024 06:16-0500 Body weight 50.07 kg/m2 DR ZAIN FERRO MD [facility] 07-22-2024 05:06-0500 Diastolic Blood Pressure Non-Invasive 86 mm[Hg] KIZZY FROMMELT DO [facility] 07-22-2024 05:06-0500 Heart rate 49 /min KIZZY FROMMELT DO [facility] 07-22-2024 05:06-0500 Respiratory rate 20 /min KIZZY FROMMELT DO [facility] 07-22-2024 05:06-0500 Systolic Blood Pressure Non-Invasive 164 mm[Hg] KIZZY FROMMELT DO [facility] 07-22-2024 02:48-0500 Heart rate 90 /min KIZZY FROMMELT DO [facility] 07-22-2024 02:48-0500 Respiratory rate 20 /min KIZZY FROMMELT DO [facility] 07-22-2024 02:09-0500 Blood Pressure Cuff Size KIZZY FROMMELT DO [facility] 07-22-2024 02:09-0500 Blood Pressure Location KIZZY FROMMELT DO [facility] 07-22-2024 02:09-0500 Blood Pressure Method KIZZY NIETOMELT D O [facility] 07-22-2024 02:09-0500 Body temperature 98.96 [degF] KIZZY FROMMELT DO [facility] 07-22-2024 02:09-0500 Diastolic Blood Pressure Non-Invasive 91 mm[Hg] KIZZY FROMMELT DO [facility] 07-22-2024 02:09-0500 Heart rate 46 /min KIZZY MEDEROS DO [facility] 07-22-2024 02:09-0500 Respiratory rate 20 /min KIZZY MEDEROS DO [facility] 07-22-2024 02:09-0500 Systolic Blood Pressure Non-Invasive 139 mm[Hg] KIZZY MEDEROS DO [facility] 02-01-2022 12:30-0400 Body height 167.64 cm Connie Montgomery Other [employer] Other 02-01-2022 12:30-0400 Diastolic blood pressure 100 mm[Hg] Connie Montgomery Other [facility] Other 02-01-2022 12:30-0400 Heart rate 86 /min Connie Montgomery Other [employer] Other 02-01-2022 12:30-0400 Respiratory rate 20 /min Connie Montgomery Other [facility] Other 02-01-2022 12:30-0400 SaO2% (BldA) [Mass fraction] 98 % Connie Montgomery Other [facility] Other 02-01-2022 12:30-0400 Systolic blood pressure 156 mm[Hg] Connie Montgomery Other [facility] Other 10-19-2021 12:00-0400 Body height 167.64 cm [email or web address] Other [employer] Other 10-19-2021 12:00-0400 Body mass index (BMI) [Ratio] 42.77 kg/m2 [email or web address] Other [facility] Other 10-19-2021 12:00-0400 Body temperature 98 [degF] Erik Hargrove Other [employer] Other 10-19-2021 12:00-0400 Body weight 120.2 kg Erik Hargrove Other [facility] Other 10-19-2021 12:00-0400 Diastolic blood pressure 88 mm[Hg] Erik Hargrove Other [employer] Other 10-19-2021 12:00-0400 Heart rate 84 /min Erik Hargrvoe Other [employer] Other 10-19-2021 12:00-0400 Respiratory rate 20 /min Erik Hargrove Other [facility] Other 10-19-2021 12:00-0400 SaO2% (BldA) [Mass fraction] 98 % Erik Hargrove Other [employer] Other 10-19-2021 12:00-0400 Systolic blood pressure 150 mm[Hg] Erik Hargrove Other [facility] Other 09-07-2021 09:30-0500 Body height 167.64 cm Erik Hargrove Other [facility] Other 09-07-2021 09:30-0500 Body mass index (BMI) [Ratio] 42.77 kg/m2 Erik Hargrove Other [facility] Other 09-07-2021 09:30-0500 Body temperature 97.6 [degF] Erik Hargrove Other [facility] Other 09-07-2021 09:30-0500 Body weight 120.2 kg Erik Hargrove Other [facility] Other 09-07-2021 09:30-0500 Diastolic blood pressure 114 mm[Hg] Erik Hargrove Other [facility] Other 09-07-2021 09:30-0500 Heart rate 94 /min Erik Hargrove Other [employer] Other 09-07-2021 09:30-0500 Respiratory rate 18 /min Erik Hargrove Other [facility] Other 09-07-2021 09:30-0500 SaO2% (BldA) [Mass fraction] 98 % Erik Hargrove Other [facility] Other 09-07-2021 09:30-0500 Systolic blood pressure 169 mm[Hg] Erik Hargrove Other [facility] Other 07-12-2021 09:15-0500 Body height 167.64 cm Erik Hargrove Other [facility] Other 07-12-2021 09:15-0500 Body temperature 97.5 [degF] Erik Hargrove Other [facility] Other 07-12-2021 09:15-0500 Diastolic blood pressure Erik Hargrove Other [facility] Other 07-12-2021 09:15-0500 Heart rate 66 /min Erik Hargrove Other [facility] Other 07-12-2021 09:15-0500 Respiratory rate 18 /min Erik Hargrove Other [facility] Other 07-12-2021 09:15-0500 SaO2% (BldA) [Mass fraction] 92 % Erik Hargrove Other [facility] Other 07-12-2021 09:15-0500 Systolic blood pressure 92 mm[Hg] Erik Hargrove Other [employer] Other 10-01-2019 17:46-0400 Body Temperature 97.8 [degF] KATHY Hernandez [facility] Work Phone: 10-01-2019 17:46-0400 BP Diastolic 93 mm[Hg] [facility] 10-01-2019 17:46-0400 BP Systolic 192 mm[Hg] [facility] Work Phone: 10-01-2019 17:46-0400 Pulse (Heart Rate) 73 /[facility]: 10-01-2019 17:46-0400 Pulse Oximetry 95 % [facility] Work Phone: 10-01-2019 17:46-0400 Respiratory Rate 19 /[facility]: 09-25-2019 12:32-0400 Body weight 108.86 kg [facility] Work Phone: 09-25-2019 12:32-0400 Height 167.64 cm [facility] Work Phone: Encounters Encounter Date Encounter Type Care Provider Facility Start: 02-24-2025 ambulatory Agusto [facility] Facility :[facility] Start: 01-19-2025 ambulatory Yesy Coloradoi ty:[facility] Start: 01-12-2025 End: 01-12-[address] Bella Oneal MD Work Phone: -Cardiovascular Services Start: 01-12-2025 End: 01-12-[address] Tiburcio Osborne MD -Cardiovascular Services Work Phone: Start: 01-12-2025 ambulatory Kayleen Pederson Fa cility:[facility] Start: 01-12-2025 End: 01-12-2025 ambulatory Tiburcio Osborne Facility:[facility] Start: 12-30-2024 End: 01-01-2025 Evaluation and management of inpatient BENNY BENJAMIN DO [facility] Start: 12-30-2024 End: 12-30-2024 Emergency department patient visit Dr. Bella Oneal MD Work Phone: -Emergency Department Work Phone: Start: 12-25-2024 ambulatory PHY WO ID REFERRING Fac ility:[facility] Start: 12-18-2024 Encounter for genera l adult medical examination without abnormal findings [facility] Start: 12-17-2024 End: 12-17-2024 ambulatory PHY WO ID REFERRING Facility: Start: 12-17-2024 End: 12-17-2024 Patient encounter procedure PHY WO ID REFERRING [facility] Start: 12-08-2024 End: 12-08-[address] Tiburcio Osborne MD -[facility] Work Phone: Start: 12-08-2024 End: 12-08-[address] Bella Oneal MD Work Phone: [facility] Work Phone: Start: 12-03-2024 End: 12-03-[address] Agusto Rogers MD -[facility] Work Phone: Start: 12-03-2024 End: 12-03-2024 ambulatory Bella Mattawan Facility:[facility] Start: 11-06-2024 End: 11-06-[address] Ton Vasquez MD -Laboratory Specimen Work Phone: Start: 11-06-2024 End: 11-06-2024 ambulatory Bella Jm Facility:[facility] Start: 10-30-[address] Gila Bernal MD -[facility] Start: 10-30-2024 ambulatory Gila PINTO Facili ty:[facility] Start: 07-22-2024 End: 07-23-2024 Evaluation and management of inpatient DR ZAIN FERRO MD [facility] Start: 07-22-2024 End: 07-22-2024 Emergency department patient visit KIZZY MEDEROS [facility] Start: 02-11-2024 ambulatory Bella Mattawan Facility :[facility] Start: 02-09-2024 End: 02-09-2024 Emergency department patient visit Jason Morris Facility:[facility] Start: 02-04-2024 ambulatory Bella Mattawan Facility :[facility] Start: 01-23-2024 End: 01-23-2024 ambulatory Bella Jm Facility:[facility] Start: 10-03-2023 End: 10-04-2023 ambulatory KIM QUEVEDO Facility:[facility] Start: 10-03-2023 Evaluation and management of inpatient ELISABETH COFFMAN [facility] Start: 10-03-2023 End: 10-03-[address] CRIER-BC ERIK N HARGROVE Work Phone: [facility] Work Phone: Start: 10-03-2023 End: 10-03-[address] CRIER-BC ERIK HARGROVE Work Phone: [facility]-[employer] Work Phone: Start: 09-29-2023 ambulatory ERIK N HARGROVE Facility :[facility] Start: 09-29-2023 Evaluation and management of inpatient KATHY SHARP [facility] Start: 09-22-2023 ambulatory KIM Almendarez ty:[facility] Start: 09-22-2023 Evaluation and management of inpatient VICKI RAO [facility] Start: 08-03-2023 ambulatory ERIK HARGROVE Facility :[facility] Start: 08-03-2023 Evaluation and management of inpatient KATHY SHARP [facility] Start: 07-11-2023 End: 07-11-2023 ambulatory ERIKLARY HARGROVE Facility:[facility] Start: 07-11-2023 Evaluation and management of inpatient CHRISTIANO LINARES [facility] Start: 07-11-2023 End: 07-11-[address] CRIER-BC ERIK N HARGROVE Work Phone: [facility] Work Phone: Start: 07-11-2023 End: 07-11-[address] CRIER-BC ERIKLARY BONDS Work Phone: [facility] [employer] Work Phone: Start: 07-05-2023 End: 07-05-2023 ambulatory ERIKLARY HARGROVE Facility:[facility] Start: 07-05-2023 Evaluation and management of inpatient ELISABETH COFFMAN [facility] Start: 07-05-2023 End: 07-05-[address] CRIER-BC ERIK N HARGROVE Work Phone: [facility] Work Phone: Start: 07-05-2023 End: 07-05-[address] CRIER-BC ERIKLARY BONDS Work Phone: [facility] [employer] Work Phone: Start: 06-09-2023 ambulatory ERIK HARGROVE Facility :[facility] Start: 06-09-2023 Evaluation and management of inpatient KATHY SHARP [facility] Start: 05-29-2023 End: 05-29-2023 ambulatory ERIK Zoran HARGROVE Facility:[facility] Start: 05-29-2023 Evaluation and management of inpatient ELISABETH COFFMAN [facility] Start: 05-29-2023 End: 05-29-[address] CRIER-BC ERIK N HARGROVE Work Phone: [facility] Work Phone: Start: 05-29-2023 End: 05-29-[address] CRIER-BC ERIKNav HARGROVE Work Phone: [facility]-[employer] Work Phone: Start: 05-29-2023 ambulatory ERIK HARGROVE Facility :[facility] Start: 05-29-2023 Evaluation and management of inpatient VICKI RAO [facility] Start: 04-05-2023 ambulatory ERIK Zoran HARGROVE Facility :[facility] Start: 04-05-2023 Evaluation and management of inpatient VICKI RAO [facility] Start: 02-25-2023 ambulatory KIM Almendarez ty:[facility] Start: 02-25-2023 Evaluation and management of inpatient KIM ALVAREZ [facility] Start: 01-24-2023 ambulatory ERIK HARGROVE Facility :[facility] Start: 01-24-2023 Evaluation and management of inpatient VICKI RAO [facility] Start: 01-21-2023 ambulatory KIM Coloradoi ty:[facility] Start: 01-21-2023 Evaluation and management of inpatient KIM ALVAREZ [facility] Start: 01-08-2023 ambulatory KIM Coloradoi ty:[facility] Start: 01-08-2023 Evaluation and management of inpatient KIM ALVAREZ [facility] Start: 01-01-2023 End: 01-01-2023 ambulatory ERIK Zoran HARGR[place] Facility:[facility] Start: 01-01-2023 Evaluation and management of inpatient JORGITO RIVERA [facility] Start: 01-01-2023 End: 01-01-[address] CRIER-BC ERIK Zoran HARGR[place] Work Phone: [facility] Work Phone: Start: 01-01-2023 End: 01-01-[address] CRIER-BC ERIK HARGROVE Work Phone: [facility] [employer] [employer] Start: 01-01-2023 ambulatory ROBERTO QUEVEDO [facility] Start: 01-01-2023 Evaluation and management of inpatient KIM ALVAREZ [facility] Start: 12-29-2022 ambulatory ERIK HARGROVE Facility :[facility] Start: 12-29-2022 Evaluation and management of inpatient VICKI RAO [facility] Start: 12-28-2022 End: 12-28-2022 ambulatory ERIKLARY HARGROVE Facility:[facility] Start: 12-28-2022 Evaluation and management of inpatient JORGITO RIVERA [facility] Start: 12-28-2022 End: 12-28-[address] CRIER-BC ERIK HARGROVE Work Phone: [facility] Work Phone: Start: 12-28-2022 End: 12-28-[address] CRIER-MAYURI HARGROVE Work Phone: [facility] [employer] Start: 12-25-2022 ambulatory KIM Coloradoi ty:[facility] Start: 12-25-2022 Evaluation and management of inpatient KIM ALVAREZ [facility] Start: 12-21-2022 End: 12-21-2022 ambulatory ERIKLARY HARGROVE Facility:[facility] Start: 12-21-2022 Evaluation and management of inpatient JORGITO RIVERA [facility] Start: 12-21-2022 End: 12-21-[address] CRIER-BC ERIK HARGROVE Work Phone: [facility] [employer] Start: 12-07-2022 End: 12-07-2022 ambulatory ERIKLARY HARGROVE Facility:[facility] Start: 12-07-2022 Evaluation and management of inpatient JORGITO RIVERA [facility] Start: 12-07-2022 End: 12-07-[address] CRIER-BC ERIK HARGROVE Work Phone: [facility] [employer] Start: 11-30-2022 End: 11-30-2022 ambulatory ERIK N HARGORVE Facility:[facility] Start: 11-30-2022 Evaluation and management of inpatient JORGITO RIVERA [facility] Start: 11-30-2022 End: 11-30-[address] CRIER-BC ERIK HARGROVE Work Phone: [facility] [employer] Start: 11-26-2022 End: 11-26-2022 ambulatory ERIK N HARGROVE Facility:[facility] Start: 11-26-2022 Evaluation and management of inpatient LEOPOLDO DUFFY [facility] Start: 11-26-2022 End: 11-26-[address] CRIER-BC ERIK N HARGROVE Work Phone: [facility] Work Phone: Start: 11-26-2022 End: 11-26-[address] CRIER-BC ERIKLARY BONDS Work Phone: [facility] [employer] Start: 11-23-2022 End: 11-23-2022 ambulatory ERIK N BEENA Facility:[facility] Start: 11-23-2022 Evaluation and management of inpatient JORGITO RIVERA [facility] Start: 11-23-2022 End: 11-23-[address] CRIER-BC ERIK N HARGROVE Work Phone: [facility] Work Phone: Start: 11-23-2022 End: 11-23-[address] CRIER-BC ERIK HARGROVE Work Phone: [facility] [employer] Start: 11-22-2022 ambulatory ERIK N HARGROVE Facility :[facility] Start: 11-22-2022 Evaluation and management of inpatient VICKI RAO [facility] Start: 11-16-2022 End: 11-16-2022 ambulatory ERIK N HARGROVE Facility:[facility] Start: 11-16-2022 Evaluation and management of inpatient JORGITO RIVERA [facility] Start: 11-16-2022 End: 11-16-[address] CRIER-BC ERIK N HARGROVE Work Phone: [facility] Work Phone: Start: 11-16-2022 End: 11-16-[address] CRIER-BC ERIK HARGROVE Work Phone: [facility]-[employer] Start: 11-09-2022 End: 11-09-2022 ambulatory ERIK N BEENA Facility:[facility] Start: 11-09-2022 Evaluation and management of inpatient SB AGEE [facility] Start: 11-09-2022 End: 11-09-[address] CRIER-BC ERIK HARGROVE [facility] [employer] Start: 11-02-2022 End: 11-02-2022 ambulatory ERIK N BEENA Facility:[facility] Start: 11-02-2022 Evaluation and management of inpatient KARENA WHALEN [facility] Start: 11-02-2022 End: 11-02-[address] CRIER-BC ERIK N HARGROVE Work Phone: [facility] Work Phone: Start: 11-02-2022 End: 11-02-[address] CRIER-BC ERIK HARGROVE Work Phone: [facility] [employer] Start: 10-29-2022 ambulatory ERIK N BEENA Facility :[facility] Start: 10-29-2022 Evaluation and management of inpatient KIM ALVAREZ [facility] Start: 10-26-2022 End: 10-26-2022 ambulatory KIM QUEVEDO Facility:[facility] Start: 10-26-2022 Evaluation and management of inpatient KRYSTEN العلي [facility] Start: 10-26-2022 End: 10-26-[address] CRIER-BC ERIK N HARGROVE Work Phone: [facility] Work Phone: Start: 10-26-2022 End: 10-26-[address] CRIER-BC ERIK HARGROVE Work Phone: [facility] [employer] Start: 10-22-2022 End: 10-22-2022 ambulatory KIM QUEVEDO Facility:[facility] Start: 10-22-2022 Evaluation and management of inpatient KASIE THAPA [facility] Start: 10-22-2022 End: 10-22-[address] CRIER-BC ERIK N HARGROVE Work Phone: [facility] Work Phone: Start: 10-22-2022 End: 10-22-[address] CRIER-BC ERIK HARGROVE Work Phone: [facility] [employer] Start: 10-12-2022 End: 10-12-2022 ambulatory ERIK HARGROVE Facility:[facility] Start: 10-12-2022 Evaluation and management of inpatient DOUGLAS STYLES [facility] Start: 10-12-2022 End: 10-12-[address] CRIER-BC ERIK N HARGROVE Work Phone: [facility] Work Phone: Start: 10-12-2022 End: 10-12-[address] CRIER-BC ERIK HARGROVE Work Phone: [facility] [employer] Start: 10-05-2022 End: 10-05-[address] CRIER-BC ERIK N HARGROVE Work Phone: [facility] Work Phone: Start: 10-05-2022 End: 10-05-[address] CRIER-BC ERIK HARGROVE Work Phone: [facility] [employer] Start: 05-22-2022 End: 05-22-[address] CRIER-BC ERIKLARY BONDS Work Phone: [facility] Work Phone: Start: 05-22-2022 End: 05-22-[address] CRIER-BC ERIK HARGROVE [facility] Start: 04-16-2022 End: 04-16-2022 ambulatory Erik Hargrove Other [employer] Other Start: 04-16-2022 Telephone encounter Erik Hargrove Nvr [facility] Start: 03-20-2022 End: 03-20-2022 ambulatory Erik Hargrove Other [employer] Other Start: 03-20-2022 Telephone encounter Erik Hargrove [facility] Start: 03-19-2022 End: 03-19-2022 ambulatory Erik Hargrove Other [employer] Other Start: 03-19-2022 Telephone encounter Erik Hargrove Par [facility] Start: 03-14-2022 End: 03-14-2022 ambulatory Erik Hargrove Other [employer] Other Start: 03-14-2022 Telephone encounter Erik Hargrove Nvr [facility] Start: 03-06-2022 End: 03-06-2022 ambulatory Erik Hargrove Other [employer] Other Start: 03-06-2022 Telephone encounter Erik Hargrove Nvr [facility] Start: 02-01-2022 End: 02-01-2022 ambulatory Erik Hargrove Other [employer] Other Start: 02-01-2022 Office outpatient vi sit 25 minutes Connie Montgomery [place] [facility] Start: 02-01-2022 Telephone encounter Erik Hargrove [facility] Start: 01-31-2022 End: 01-31-2022 ambulatory Erik Hargrove Other [facility] Other Start: 01-31-2022 Telephone encounter Erik Hargrove [facility] Start: 01-09-2022 End: 01-09-2022 ambulatory Erik Hargrove Other [facility] Other Start: 01-09-2022 Telephone encounter Erik Hargrove [facility] Start: 10-19-2021 End: 10-19-2021 ambulatory Erik Hargrove Other [facility] Other Start: 10-19-2021 Office outpatient vi sit 25 minutes Eriklary Bonds [facility] Start: 10-16-2021 End: 10-16-2021 ambulatory Erik Hargrove Other [facility] Other Start: 10-16-2021 Telephone encounter Erik Hargrove [facility] Start: 10-10-2021 End: 10-10-2021 ambulatory Erik Hargrove Other [facility] Other Start: 10-10-2021 Telephone encounter Erik Hagrrove [facility] Start: 09-13-2021 End: 09-13-2021 ambulatory Erik Hargrove Other [facility] Other Start: 09-13-2021 Telephone encounter Erik Hargrove [facility] Start: 09-07-2021 End: 09-07-2021 ambulatory Erik Hargrove Other [facility] Other Start: 09-07-2021 Office outpatient vi sit 25 minutes Erik Hargrove [facility] Start: 09-04-2021 End: 09-04-2021 ambulatory Erik Hargrove Other [facility] Other Start: 09-04-2021 Telephone encounter Erik Hargrove [facility] Start: 07-17-2021 End: 07-17-2021 ambulatory Erik Hargrove Other [facility] Other Start: 07-17-2021 Telephone encounter Erik Hargrove [facility] Start: 07-12-2021 End: 07-12-2021 ambulatory Erik Hargrove Other [facility] Other Start: 07-12-2021 Office outpatient vi sit 15 minutes Erik Hargrove [facility] Start: 06-29-2021 End: 06-29-2021 ambulatory Erik Hargrove Other [facility] Other Start: 06-29-2021 Telephone encounter Erik Hargrove [facility] Start: 05-26-2021 End: 05-26-2021 ambulatory Erik Hargrove Other [facility] Other Start: 05-26-2021 Telephone encounter Erik Hargrove [facility] Start: 12-29-2019 End: 12-29-2019 Patient encounter procedure [facility] Physician-Vascular Surgery Dept Start: 11-11-2019 End: 11-11-2019 Patient encounter procedure KATHY BUCHANAN -Vascular Surgery Dept Start: 10-01-2019 End: 10-01-2019 Admission to day surgery KATHY BUCHANAN -[facility] Surgery 1st Floor Start: 09-24-2019 End: 09-24-2019 [...] w/wom-mode compl spec&colr d TTE W/DOPPLER COMPLETE [facility] Start: 12-30-2024 Bacteria identified in Blood by Culture Blood Culture [facility] Start: 12-30-2024 [facility] Start: 12-30-2024 [facility] Start: 12-08-2024 Evaluation of diagno stic study results [facility] MR Lower Extremity Joint [facility] Patient Education [facility] Work Phone: Patient referral [facility] Work Phone: Thyroid stimulating hormone measurement [facility] Immunizations Immunization Date Immunization Notes Care Provider Fa cility 12-28-2013 tetanus toxoid, redu dandre diphtheria toxoid, and acellular pertussis vaccine, adsorbed Erik Hargrove Other [employer] Other Payers Date Payer Category Payer Medicaid [id number] 2024 Medicaid [id number] 2022 Self-pay [id number] 2017 Medicaid [id number] 1975 Unknown [id number] . 840.1.757430.3.579.2.62 1974 Unknown [id number] .16.8 40.1.345563.3.579.2.627 1974 Unknown [id number] . 840.1.719672.3.579.2.627 1974 Unknown [id number] . 840.1.015656.3.579.2.627 1974 Unknown [id number] .16.8 40.1.703431.3.579.2.627 Unknown [id number] . 840.1.119098.3.579.2.512 Unknown [id number] . 840.1.661718.3.579.2.512 Unknown [id number] . 840.1.865616.3.579.2.512 Unknown [id number] . 840.1.768795.3.579.2.512 Unknown [id number] 2.16 840.1.444092.3.579.2.512 Unknown [id number] 2.16. 840.1.506972.3.579.2.512 Unknown [id number] 2.16. 840.1.154666.3.579.2.512 Unknown [id number] 2.16. 840.1.778778.3.579.2.512 Unknown [id number] 2.16. 840.1.882149.3.579.2.512 Unknown [id number] 2.16. 840.1.430255.3.579.2.512 Unknown [id number] 2.16. 840.1.400826.3.579.2.512 Unknown [id number] 2.. 840.1.069707.3.579.2.512 Unknown [id number] 2.. 840.1.820481.3.579.2.512 Unknown [id number] 2. 840.1.681371.3.579.2.512 Unknown [id number] 2. 840.1.836071.3.579.2.512 Unknown [id number] 2. 840.1.114763.3.579.2.512 Unknown [id number] 2. 840.1.539956.3.579.2.512 Unknown [id number] 2. 840.1.553149.3.579.2.512 Unknown [id number] 2.16. 840.1.620733.3.579.2.512 Unknown [id number] 2.16. 840.1.147649.3.579.2.512 Unknown [id number] 2.16. 840.1.383410.3.579.2.512 Unknown [id number] 2.16. 840.1.071111.3.579.2.512 Unknown [id number] 2.16. 840.1.974808.3.579.2.512 Unknown [id number] 2.16. 840.1.811370.3.579.2.512 Unknown [id number] 2.16 840.1.580001.3.579.2.512 Unknown [id number] 2.16. 840.1.102080.3.579.2.512 Unknown [id number] 2.16. 840.1.478935.3.579.2.512 Unknown [id number] 2.16. 840.1.276387.3.579.2.512 Unknown [id number] 2.16. 840.1.148589.3.579.2.512 Unknown [id number] 2.16. 840.1.448723.3.579.2.512 Unknown [id number] 2.16. 840.1.979431.3.579.2.512 Unknown [id number] 2.16. 840.1.957298.3.579.2.512 Unknown [id number] 2.16.8 40.1.395068.3.579.2.462 Unknown [id number] 2.16.8 40.1.239967.3.579.2.462 Unknown [id number] 2.16.8 40.1.444334.3.579.2.462 Unknown [id number] 2.16.8 40.1.223345.3.579.2.462 Unknown [id number] 2.16.8 40.1.588091.3.579.2.462 Unknown [id number] 2.16.8 40.1.870116.3.579.2.462 Unknown [id number] 2.16.8 40.1.831979.3.579.2.462 Unknown [id number] 2.16.8 40.1.515378.3.579.2.462 Unknown [id number] 2.16.8 40.1.877956.3.579.2.462 Unknown [id number] 2.16.8 40.1.410590.3.579.2.462 Unknown [id number] 2.16.8 40.1.666251.3.579.2.462 Unknown [id number] 2.16.8 40.1.627445.3.579.2.462 Unknown [id number] 2.16.8 40.1.572836.3.579.2.462 Unknown [id number] 2.16.8 40.1.818471.3.579.2.462 Social History Date Type Detail Facility Start: 11-11-2019 End: 12-30-2024 Tobacco smoking status NHIS Ex-smoker (finding) [facility] Start: 09-25-2019 No [facility] Start: 11-11-2019 Former Smoker [facility] Start: 09-25-2019 Yes [facility] Work Phone: Start: 09-25-2019 20 [facility] Start: 11-11-2019 [facility] Start: 1975 Sex Assigned At Male [facility] Sex Assigned At Male [facility] Other Tobacco smoking status Smokeless tobacco user within last 30 days [facility] Sexual Orientation [facility] Sex Male (finding) [facility] Medical Equipment Procedure Code Equipment Code [...] CATH,PERITONEAL BREE 62CM FDA Start: 10-01-2019 Pen [place] 5/16 31G X 8 MM Start: 02-01-2022 Goals Date Patient Goal Desired Activity /State Functional Status Date Assessment Result Facility 07-23-2024 Functional Status Room check performed [facility] 07-23-2024 Functional Status [facility] 07-23-2024 Functional Status [facility] 07-23-2024 Functional Status Nurse Bakari Tucker gamaliel q2hrs Performed Other: [id number] [facility] 07-22-2024 Functional Status [facility] 07-22-2024 Functional Status [facility] 07-22-2024 Functional Status Done [facility] 07-22-2024 Functional Status [facility] 07-22-2024 Functional Status [facility] 07-22-2024 Functional Status Standard Safet y ID band on, Call device within reach, Bed in low position, Wheels locked, personal items within reach, Bedside Cart Locked, Visitor at bedside, Safety level maintained [facility] Mental Status Date Assessment Result Facility 12-30-2024 Cognitive function Voice/Name [facility] Work Phone: 07-23-2024 Mental Status Oriented x 4 [facility] 07-23-2024 Mental Status [facility] 07-22-2024 Mental Status Orientation Asse ssment Oriented x 4 [facility] 07-22-2024 Mental Status [facility] 07-22-2024 Mental Status Orientation Oriented x 4 [facility] Clinical Notes 07-12-2021 to 01-08-2025 Note Date [...] Locations *1: This test was performed at: [facility], [facility] [address] [place] [address], [place], [address]- , [facility] 01-01-2025 Note Discharge Instructions Thank you for allowing [facility] to assist you with your healthcare needs. The following is important discharge information regarding your hospital visit. Your Care Team DANTE VANG APRN-FINAL INSPECTOR SHUTTLE What to do next Instructions From Your Doctor You will need close follow up with your PCP for mesenteric abdominal biopsy results Please reach out to Oncology department for follow up if you do not hear from anyone regarding biopsy results Scheduled Follow-Up Appointments Appointment Type When Where Contact Information StatusCT Abdomen w/o Contrast 01/05/2025 10:00 AM EDT [facility] [phone] Confirmed Follow Up Appointments [facility] Please call report to [phone]. When:Within 1-2 days Follow Up with ZAHIDA JANE When:Within 1-2 days Where:[facility] [address] [place] [address]- [phone] Business (1) Follow Up with GENIE NIÑO When:Within 1-2 days Where:[address] [place] [address] Hematology [place] [address]- [phone] Business (1) Follow Up with DANTE VANG When:Within 1-2 days Where:[address] [facility] [place] [address]- [phone] Business (1) The Following Activity and Diet [...] Follow these instructions at home: Medicines Take wkqw-zbo-exprfvl and prescription medicines only as told by [...] to receive it can visit one of [facility] vaccine clinics. There are many vaccine clinic locations within the [facility]. For locations and available times, please visit https://[email or web address].o hio.gov/. It is important to note that some COVID mobile vaccine clinics are held outdoors and may be canceled in rainy or stormy conditions. To learn more about pediatric vaccinations (ages 5-11), we invite you to visit the [facility] webpage. https://www.Tongxues.org/p ages/0605-Xcncw-Vgffxyifihv-Freq xskzdr-Gymde-Lfdbuemcq.html To learn more about the COVID-19 vaccine, we invite you to visit the CDC website for a list of frequently asked questions.https://www.cdc.gov/co ronavirus/2019-ncov/vaccines/faq .html [employer] Patient Portal Access Instructions: Stay connected with your healthcare team and access your personal medical information anytime with the [employer] Patient Portal. Please follow the directions below to create your [employer] account: 1.Access the email account you provided upon registration to the hospital/physician office.2.Look for an invitation email from [facility].3.Open the email and access the invitation link: Accept Invitation to [employer].4.Fill in the required chase to create your account. To access your account, visit [employer]Pencil You InOneChart. Click the blue button labeled Access Patient [...] you will allow to register on the [employer] Patient Portal for access to your information. You can also access the [facility] One[facility] Patient Portal on the [facility] dina. Simply click on Patient Portal and then log into your account. If you would like to receive a full copy of your medical records, please contact the [facility] Medical Records Department by calling [phone], Saturday through Saturday between 8 a.m. and [...] Call your local pharmacy or go to [email or web address] to find one close to you.3.Make use of household items: Use cat litter or old coffee grounds to dispose medications if other options are not available. Mix your drugs with these household products, seal them in an airtight container and throw it into the garbage. Call [facility]: [phone] to be sure your drugs can be [...] aware that I should contact my doctor. Patient/Lead Material Handler Signature: Date/Time: Relationship to Patient: Witness Name/Signature: Date/Time: [facility] 01-01-2025 Discharge summary Date of Service 01/01/25 [...] mellitus, BPH, GERD, obesity, anemia, resides at [facility]. Patient presented from [facility] to [facility] on 12/30/2024 for shortness of breath and abdominal pain. 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 He was found to have leukocytosis of 19. Patient was afebrile, tachycardic, on room air. Transferred to [facility] for further management. Lab work at [facility] showed leukocytosis of 16.1, hemoglobin 9.8, glucose [...] states it has [place] getting [place] Physical Exam Vitals and Measurements T: 36.8 [...] Up with ZAHIDA JANE When:Within 1-2 days Where:[facility] [address] [place] [address]- [phone] Business (1) Follow Up with GENIE NIÑO When:Within 1-2 days Where:[address] [facility] Hematology [place] [address]- [phone] Business (1) Follow Up with DANTE VANG When:Within 1-2 days Where:[address] [facility] [place] [address] [phone] Business (1) Discharge Diet Transfer of Care [...] by RILEY PIERRE on 01/01/2025 01:42 PM [facility] 01-01-2025 Hospital Discharg e instructions Patient Education [...] Follow these instructions at home: Medicines Take zrwa-rxt-lutkrkl and prescription medicines only as told by [...] 04/28/2010 Document Revised: 06/13/2018 Document Reviewed: 08/06/2017 [employer] Patient Education 2020 [employer]. Follow Up Care 12/30/2024 09:12:01 With:Patient is discharged to [facility] LOC. Please call report to [phone]. Address:Unknown When:1-2 days With:ZAHIDA JANE Address: [facility] [address] [place] [phone] Business (1) When:1-2 days With:GENIE NIÑO Address: [address] [place] [address] Hematology [place] [address] [phone] Business (1) When:1-2 days With:DANTE VANG Address: [address] [facility] [place] [address] [phone] Business (1) When:1-2 days [facility] 01-01-2025 Note Discharge Instructions Thank you for allowing [facility] to assist you with your healthcare needs. [...] Abdomen w/o Contrast 01/05/2025 10:00 AM EDT [facility] [phone] Confirmed Follow Up Appointments Follow Up with Patient is discharged [facility]. Please call report to [phone]. When:Within 1-2 days Follow Up with ZAHIDA JANE When:Within 1-2 days Where:[facility] [address] [place] [address] [phone] Business (1) Follow Up with GENIE NIÑO When:Within 1-2 days Where:[address] [facility] Hematology [place] [address] [phone] Business (1) Follow Up with DANTE VANG When:Within 1-2 days Where:[address] [facility] [place] [address]- [phone] Business (1) The Following Activity and Diet [...] Follow these instructions at home: Medicines Take xujv-cvd-krnvpwb and prescription medicines only as told by [...] 04/28/2010 Document Revised: 06/13/2018 Document Reviewed: 08/06/2017 [employer] Patient Education 2020 [employer]. Additional Information VACCINATE! IT SAVES LIVES! Members of the community who have not yet received the COVID-19 vaccine and would like to receive it can visit one of [facility] vaccine clinics. There are many vaccine clinic locations within the [facility]. For locations and available times, please visit https://gettheshot.coronavirus.o nvo.gov/. It is important to note that some COVID mobile vaccine clinics are held outdoors and may be canceled in rainy or stormy conditions. To learn more about pediatric vaccinations (ages 5-11), we invite you to visit the [facility] webpage. https://www.[facility].org/p ages/5323-Gngab-Uhvuoxkkngt-Freq cpkihh-Tshve-Ojbjwltqx.html To learn more about the COVID-19 vaccine, we invite you to visit the CDC website for a list of frequently asked questions.https://www.cdc.gov/co ronavirus/2019-ncov/vaccines/faq .html [facility] [employer] Patient Portal Access Instructions: Stay connected with your healthcare team and access your personal medical information anytime with the [facility] Patient Portal. Please follow the directions below to create your [employer] account: 1.Access the email account you provided upon registration to the hospital/physician office.2.Look for an invitation email from [facility].3.Open the email and access the invitation link: Accept Invitation to [employer].4.Fill in the required chase to create your account. To access your account, visit [email or web address]. Click the blue button labeled Access Patient [...] you will allow to register on the [employer] Patient Portal for access to your information. You can also access the [facility] [employer] Patient Portal on the [facility] dina. Simply click on Patient Portal and then log into your account. If you would like to receive a full copy of your medical records, please contact the [facility] Medical Records Department by calling [phone], Saturday through Saturday between 8 a.m. and [...] Call your local pharmacy or go to http://bit.Qlue/6D3Sq0f to find one close to you.3.Make use of household items: Use cat litter or old coffee grounds to dispose medications if other options are not available. Mix your drugs with these household products, seal them in an airtight container and throw it into the garbage. Call [facility]: [phone] to be sure your drugs can be [...] aware that I should contact my doctor. Patient/Lead Material Handler Signature: Date/Time: Relationship to Patient: Witness Name/Signature: Date/Time: [facility] 01-01-2025 Procedure note Brief IR Post Procedure Note - Inpatient/Obs Pre Procedure Dx: Cystic abd mass Post Procedure Dx: Same Procedure: 1. CT bx + asp Personal Counselor: Eli[facility] District Sales Coordinator: None Anesthesia: Local, moderate sedation EBL: Minimal [...] diet Full report to follow. Orders in [facility]. Fabby Griffin MD Vascular & Interventional Rad[facility] ([facility]) [facility] Deanna [email or web address] Pager: [phone] [facility] Dept (04/02): [id number] [facility] [phone] [facility] Call Schedule (copy & paste): [email or web address] Digitally Signed by FABBY GRIFFIN MD on 01/01/2025 03:20 PM [facility] 01-01-2025 Note IR Procedure Record Summary Primary Physician: FABBY GRIFFIN MD Finalized Date/Time: 01/01/25 14:35:54 Pt. Name: AGUSTO MONSALVE/Sex: 1975 Male Med Rec #: [id number] Physician: BENNY ALEXANDER DO Financial #: [id number] Pt. Type: I Room/Bed: [facility]/A Admit/Disch: 12/30/24 20:35:00 - Institution: Allergies identified in patient's electronic medical record at time of printing on 01/01/25 Entry 1 Substance NKA Reaction Type Allergy Last Modified By: Jessica Powell RN 07/22/24 02:52:44 Case Attendance- IR Entry 1 Entry 2 Entry 3 Case Attendee ELIASFABBY MD, Delaney R Lee, RN Melanie L Role Performed Primary Surgeon Distillery Miller Helper Procedure Nurse Details Time In 01/01/25 13:48:00 [...] Radiology - Action Plan Outcomes Met? Yes Shredder Tender Peat MIRIAM Hodge Completing Procedure Plan Last Modified By: MIRIAM Hodge 01/01/25 14:14:29 Case Comments Finalized By: MIRIAM Hodge Document Signatures Signed By: MIRIAM Hodge 01/01/25 14:35 [facility] 01-01-2025 Note Discharge Instructions Thank you for allowing [facility] to assist you with your healthcare needs. [...] Abdomen w/o Contrast 01/05/2025 10:00 AM EDT [facility] [phone] Confirmed Follow Up Appointments Follow Up with Patient is discharged to [facility] LOC. Please call report to [phone]. When:Within 1-2 days Follow Up with ZAHIDA JANE When:Within 1-2 days Where:[facility] [address] [place] [address] [phone] Business (1) Follow Up with GENIE NIÑO When:Within 1-2 days Where:[address] [facility] Hematology [place] [address]- [phone] Business (1) Follow Up with DANTE VANG When:Within 1-2 days Where:[address] [facility] [place] [address]- [phone] Business (1) The Following Activity and Diet [...] to receive it can visit one of [facility] vaccine clinics. There are many vaccine clinic locations within the [facility]. For locations and available times, please visit https://gettheshot.coronavirus.o hio.gov/. It is important to note that some COVID mobile vaccine clinics are held outdoors and may be canceled in rainy or stormy conditions. To learn more about pediatric vaccinations (ages 5-11), we invite you to visit the [facility] webpage. https://www.T[facility].org/p ages/9950-Gfjnm-Xznxardxagi-Freq wfosvg-Swmlm-Glruyftie.html To learn more about the COVID-19 vaccine, we invite you to visit the CDC website for a list of frequently asked questions.https://www.cdc.gov/co ronavirus/2019-ncov/vaccines/faq .html [employer] Patient Portal Access Instructions: Stay connected with your healthcare team and access your personal medical information anytime with the [employer] Patient Portal. Please follow the directions below to create your [employer] account: 1.Access the email account you provided upon registration to the hospital/physician office.2.Look for an invitation email from [facility].3.Open the email and access the invitation link: Accept Invitation to [facility].4.Fill in the required chase to create your account. To access your account, visit [employer]/Pencil You InOneChart. Click the blue button labeled Access Patient [...] you will allow to register on the [employer] Patient Portal for access to your information. You can also access the [facility] Patient Portal on the [facility] dina. Simply click on Patient Portal and then log into your account. If you would like to receive a full copy of your medical records, please contact the [facility] Medical Records Department by calling [phone], Saturday through Saturday between 8 a.m. and [...] Call your local pharmacy or go to http://AffinityClick.Qlue/8V6La8p to find one close to you.3.Make use of household items: Use cat litter or old coffee grounds to dispose medications if other options are not available. Mix your drugs with these household products, seal them in an airtight container and throw it into the garbage. Call [facility]: [phone] to be sure your drugs can be [...] aware that I should contact my doctor. Patient/Lead Material Handler Signature: Date/Time: Relationship to Patient: Witness Name/Signature: Date/Time: [facility] 01-01-2025 Palliative care Progress note 1015- This [...] Fany Szymanski RN on 01/01/2025 01:26 PM [facility] 01-01-2025 Discharge summary Date of Service 01/01/25 [...] mellitus, BPH, GERD, obesity, anemia, resides at [facility]. Patient presented from [facility] to [facility] on 12/30/2024 for shortness of breath and abdominal pain. 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 He was found to have leukocytosis of 19. Patient was afebrile, tachycardic, on room air. Transferred to [facility] for further management. Lab work at [facility] showed leukocytosis of 16.1, hemoglobin 9.8, glucose [...] states it [place] Physical Exam Vitals and Measurements T: 36.8 [...] Up with ZAHIDA JANE When:Within 1-2 days Where:[facility] [address] [place] [address]- [phone] Business (1) Follow Up with GENIE NIÑO When:Within 1-2 days Where:[address] [place] [address] Hematology [place] [address]- [phone] Business (1) Follow Up with DANTE VANG When:Within 1-2 days Where:[address] [facility] [place] [address]- [phone] Business (1) Discharge Diet Transfer of Care [...] by RILEY PIERRE on 01/01/2025 01:42 PM [facility] 01-01-2025 Nephrology Progress note Date of Service [...] Subcutaneous, q8h hydrocortisone/neomycin/polymyxi n B OTIC SOLUTION 1%-0.35%-68983 u/mL 4 drop(s), Ear, left, QID insulin [...] LUCIUS ANDREWS MD on 01/01/2025 09:23 AM [facility] 01-01-2025 Palliative care Consult note Date of [...] breath on exertion. He was seen at [facility]. He had a CT scan of the [...] by HARSHAL LUCAS on 01/01/2025 09:42 AM [facility] 01-01-2025 Nephrology Progress note Date of Service [...] Subcutaneous, q8h hydrocortisone/neomycin/polymyxi n B OTIC SOLUTION 1%-0.35%-05272 u/mL 4 drop(s), Ear, left, QID insulin [...] LUCIUS ANDREWS MD on 01/01/2025 09:23 AM [facility] 12-31-2024 Note Date of Service 12/31/24 Chief Complaint PNA, abdominal mass Subjective 49-year-old male with past medical history of end-stage renal disease on hemodialysis Saturday, hypertension, hyperlipidemia, CAD status post CABG, type 2 diabetes mellitus, BPH, GERD, obesity, anemia, resides at [facility]. Patient presented from [facility] to [facility] on 12/30/2024 for shortness of breath and abdominal pain. 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 He was found to have leukocytosis of 19. Patient was afebrile, tachycardic, on room air. Transferred to [facility] for further management. Lab work at [facility] showed leukocytosis of 16.1, hemoglobin 9.8, glucose [...] Subcutaneous, q8h hydrocortisone/neomycin/polymyxi n B OTIC SOLUTION 1%-0.35%-01898 u/mL 4 drop(s), Ear, left, QID insulin [...] by RILEY PIERRE on 12/31/2024 02:14 PM [facility] 12-31-2024 Note Date of Service 12/31/24 Chief Complaint PNA, abdominal mass Subjective 49-year-old male with past medical history of end-stage renal disease on hemodialysis Saturday, hypertension, hyperlipidemia, CAD status post CABG, type 2 diabetes mellitus, BPH, GERD, obesity, anemia, resides at [facility]. Patient presented from [facility] to [facility] on 12/30/2024 for shortness of breath and abdominal pain. 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 He was found to have leukocytosis of 19. Patient was afebrile, tachycardic, on room air. Transferred to [facility] for further management. Lab work at [facility] showed leukocytosis of 16.1, hemoglobin 9.8, glucose [...] Subcutaneous, q8h hydrocortisone/neomycin/polymyxi n B OTIC SOLUTION 1%-0.35%-93600 u/mL 4 drop(s), Ear, left, QID insulin [...] by RILEY PIERRE on 12/31/2024 02:14 PM [facility] 12-31-2024 Nephrology Progress note Date of Service [...] LUCIUS ANDREWS MD on 12/31/2024 10:03 AM [facility] 12-31-2024 Nephrology Consul t note Date of Service 12/31/2024 Reason for Consultation ESRD on HD, missed dialysis yesterday. Referring Physician Dr. Schumacher. History of Present Illness Mr. Monsalve is a pleasant 49-year-old gentleman with past medical history of ESRD for which he receives hemodialysis on MWF at [facility] dialysis [facility]. His other medical problems include GERD, hyperlipidemia, hypertension, diabetes, BPH, coronary artery disease status post CABG who is a resident of nursing facility in [facility]. Patient was having worsening shortness of breath and abdominal pain. He was sent to [facility] for evaluation. From there he was transferred to [facility] for multifocal pneumonia and possible mesenteric mass. [...] as he was in the ER at [facility]. Review of all other systems is negative. [...] History ESRD on HD on MWF at [facility] dialysis unit Chronic hypotension Diabetes Coronary [...] qDay Mycostatin 100,000 units/g topical ointment, 1 dnia, Topical, QID ondansetron 4 mg oral tablet, [...] LUCIUS ANDREWS MD on 12/31/2024 08:51 AM [facility] 12-30-2024 History and physical note Date of [...] exertion and abdominal pain. Prompted evaluation at [facility]. CTAP, imaging revealed multifocal pneumonia and commentary [...] BENNY ALEXANDER DO on 12/30/2024 10:19 PM [facility] 12-30-2024 Note Exam Date Time Procedure Performing Provider Status 12/30/24 9:34 PM Electrocardiogram - EKG - CV CLINTON ALVAREZ MD; Auth (Verified) ECG Final Report Atrial flutter with RVR Right bundle branch block Borderline ST depression, lateral leads Electronic Signature: PRICILA ALVAREZ MD 12/31/2024 23:00:09 [facility] [id number] Note* Exam Date Time Procedure Performing Provider Status 12/30/24 8:51 PM Electrocardiogram - EKG - CV CLINTON ALVAREZ MD; Auth (Verified) ECG Final Report Atrial flutter with predominant 2:1 AV block Nonspecific intraventricular conduction delay Repol abnrm suggests ischemia, anterolateral Electronic Signature: PRICILA ALVAREZ MD 12/31/2024 22:58:52 [facility] [id number] Evaluation + Plan noteExtracted from: Title:History and [...] Appointments Appointment Date:01/05/2025 10:00:00 AM Scheduled Provider: Location:[facility] Appointment Type:CT Abdomen w/o Contrast Diagnostic Tests Pending * Culture Respiratory with Gram Stain 12/30/24 * Streptococcus Pneumoniae Urine Antig 12/30/24 * Legionella Urine Ag 12/30/24 Future Scheduled Tests Radiology* CT Abdomen w/o Contrast 01/05/25 [facility] 06-18-2025 Radiology Diagnostic study note [facility] Imaging Services [address] [place], [place] [id number] CT Chest, Abd, Pelvis WO Cont MR#: [id number] Acct: [id number] Name: AGUSTO MONSALVE Rep #: [id number] : 1975 M 49 From: Julio Koo MD PCP: Kayleen Pederson MD Status: REG ER Study:CT Chest, Abd, Pelvis WO Cont Date of mAparo xam: 12/30/24 Exam# [id number] Ordering Dr: Garrett Singh DO PROCEDURE: CT [...] pelvic fluid. CT/CT Chest, Abd, Pelvis WO [facility] IMPRESSION: 1. Mild cardiomegaly. 2. Prior CABG. [...] containing umbilical hernia without incarceration. Reading Location: [place] [address] CC: Kayleen Pederson MD; Dr. Poppy Singh DO ~ Bell Person: Signed [facility]06-18-2025 Radiology Diagnostic study note [facility] Imaging Services [address] [place], [place] [address] Chest 1 View (Portable) MR#: [id number] Acct: [id number] Name: AGUSTO MONSALVE Rep #: [id number] : 1975 M 49 From: Julio Koo MD PCP: Kayleen Pederson MD Status: REG ER Study:Chest 1 View (Portable) Date of Exam: 12/30/24 Exam# [id number] Ordering Dr: Garrett Singh DO PROCEDURE: CHEST [...] atelectatic pulmonary changes. Unchanged cardiomegaly. Reading Location: [place] [address] CC: Kayleen Pederson MD; Dr. Poppy Singh DO ~ Bell Person: Signed [facility]06-05-2025 NoteORIGINAL PROCEDURE: ULTRASOUND EVALUATION FOR PARACENTESIS CLINICAL [...] Sign Date: 12/17/2024 9:35:41 PM Ordering Provider: [facility]06-05-2025 Note* Leta Lee: SIGN, AUTHOR, PERFORM Event Display: US Procedure Record Authored Date: US Procedure Record Summary Primary Physician: Finalized Date/Time: 12/17/24 13:13:04 Pt. Name: AGUSTO MONSALVE./Sex: 1975 Male Med Rec #: [id number] Physician: Financial #: [id number] Pt. Type: O Room/Bed: / Admit/Disch: 12/17/24 [...] Room/Induction Room/Induction Last Modified By: Leta Lee Extractions TechnologistLeta Dao 12/17/24 Yesy Prieto 12/17/24 Yesy Prieto [...] Signatures Signed By: Leta Lee 12/17/24 13:13 [facility] 06-05-2025 Note US Procedure Record Summary Primary Physician: Finalized Date/Time: 12/17/24 13:13:04 Pt. Name: AGUSTO MONSALVE./Sex: 1975 Male Med Rec #: [id number] Physician: Financial #: [id number] Pt. Type: O Room/Bed: / Admit/Disch: 12/17/24 09:44:00 - Institution: Allergies identified in patient's electronic medical record at time of printing on 12/17/24 Entry 1 Substance NKA Reaction Type Allergy Last Modified By: Jessica Powell RN 07/22/24 02:52:44 Case Attendance- US Entry 1 Entry 2 Entry 3 Case Attendee LYNNETTE QUINTERO, Extractions Technologist FABBY GRIFFIN MD, PA-C Role Performed Radiology [...] Signatures Signed By: Leta Lee 12/17/24 13:13 [facility] [id number] Note* Exam Date Time Procedure Performing Provider Status 12/17/24 11:35 AM US Abdomen for Ascites FABBY GRIFFIN MD ; Auth (Verified) [id number] ORIGINAL PROCEDURE: ULTRASOUND EVALUATION FOR PARACENTESIS CLINICAL [...] Sign Date: 12/17/2024 9:35:41 PM Ordering Provider: [facility]05-27-2025 [facility] [address] [place] [address]. [address] [place] [address] OFFICE VISIT Date of Service: 12/08/24 MR#: [id number] Acct: [id number] Name: AGUSTO MONSALVE Rep #: [id number] : 1975 Provider: Dr. Sebastien Osborne MD Age/Sex: 49/M Location: [facility] Status: Signed HPI HPI History of Present Illness Details: This gentleman has been referred to us for establishing cardiac care. Patient has a complex past medical history. 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 Patient denies any chest pains. He has [...] Source NIBP Intake Visit Reasons: Abnormal EKG Six Color Press Operator Required: No Accompanied by: Self Is [...] ea 01/09/24 12/08/24 Rx (FreeStyle Bianca 2 Ryder) flash glucose sensor (FreeStyle #1 ea 01/09/24 [...] ventricle. Cardiac Catheterization 05/18/2019 Interpretation Summary Severe [place] coronary artery disease. Moderately depressed left ventricular [...] hypertension, I25.10 - Atherosclerotic heart disease of [place] coronary artery without angina pectoris, R00.0 - [...] (if applicable) CC: Kayleen Pederson MD ~ [facility]05-27-2025 Progress note Author Tiburcio Osborne [facility] Note Date/Time December 08, 2024 12:03 pm [facility] [address] [place] [address]. [address] [place] [address] OFFICE VISIT Date of Service: 12/08/24 MR#: [id number] Acct: [id number] Name: AGUSTO MONSALVE Rep #: [id number] : 1975 Provider: Dr. Sebastien Osborne MD Age/Sex: 49/M Location: [facility] Status: Signed HPI HPI History of Present Illness Details: This gentleman has been referred to us for establishing cardiac care. Patient has a complex past medical history. 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 Patient denies any chest pains. He has [...] Source NIBP Intake Visit Reasons: Abnormal EKG Six Color Press Operator Required: No Accompanied by: Self Is [...] ea 01/09/24 12/08/24 Rx (FreeStyle Bianca 2 Ryder) flash glucose sensor (FreeStyle #1 ea 01/09/24 [...] ventricle. Cardiac Catheterization 05/18/2019 Interpretation Summary Severe [place] coronary artery disease. Moderately depressed left ventricular [...] hypertension, I25.10 - Atherosclerotic heart disease of [place] coronary artery without angina pectoris, R00.0 - [...] (if applicable) CC: Kayleen Pederson MD ~ [place] [facility] [employer] Work Phone: 1(208) 360-968905-22-2025 Evaluation note* Diagnosis Onset Date Resolution Status [...] amputation) chronic December 08, 2024 1 0:47am [place] [employer] [facility] Work Phone: 1(209) 630-450101-09-2025 Hospital Discharge instructions Patient Education 07/23/2024 17:15:19 Hyperkalemia, Velo-kj-Iktp Hyperkalemia Hyperkalemia is when you have too [...] hospital. Follow these instructions at home: Take qntt-ywv-fqtdxeq and prescription medicines only as told by [...] need to follow a low-potassium diet. A dog food dough mixer (dietitian) can help you. Keep all follow-up [...] too much potassium in your blood. Take lsef-get-difdzzd and prescription medicines only as told by [...] 07/01/2006 Document Revised: 06/16/2018 Document Reviewed: 06/16/2018 ElseSportsBoard Patient Education 2020 [employer] Follow Up Care 07/22/2024 04:12:55 With:Patient is discharged to [facility]. Please call report to [phone] Address:Unknown When:1-2 days With:KEKE Pennington Address:Unknown When:1-2 days With:DANTE VANG Address: [address] [place] [phone] Business (1) When:1-2 days [facility] 01-09-2025 Note Discharge Instructions Thank you for allowing [facility] to assist you with your healthcare needs. The following is importantdischarge information regarding your hospital visit. Your Care Team DANTE VANG APRN-MICHAEL What to do next Follow Up Appointments Follow Up with Patient is discharged to [facility]. Please call report to [phone] When:Within 1-2 days Follow Up with KEKE Pennington When:Within 1-2 days Follow Up with DANTE VANG When:Within 1-2 days Where:[address] [place] [phone] Business (1) The Following Activity and Diet [...] hospital. Follow these instructions at home: Take dcpf-mwp-dvakarq and prescription medicines only as told by [...] need to follow a low-potassium diet. A dog food dough mixer (dietitian) can help you. Keep all follow-up [...] too much potassium in your blood. Take gjnb-nyr-szqtiwd and prescription medicines only as told by [...] 07/01/2006 Document Revised: 06/16/2018 Document Reviewed: 06/16/2018 ElseSportsBoard Patient Education 2020 [employer]. Additional Information VACCINATE! IT SAVES LIVES! Members of the community who have not yet received the COVID-19 vaccine and would like to receive it can visit one of [facility] vaccine clinics. There are many vaccine clinic locations within the [facility]. For locations and available times, please visit https://gettheshot.coronavirus.[place].gov/. It is important to note that some COVID mobile vaccine clinics are held outdoors and may be canceled in rainy or stormy conditions. To learn more about pediatric vaccinations (ages 5-11), we invite you to visit the [facility] webpage. https://www.[facility].org/pages/7484-Qjcci-Cixwpfslecz-Fexvpvrjkr-Ldans-Pio stions.htmlTo learn more about the COVID-19 vaccine, we invite you to visit the CDC website for a list of frequently asked questions.https://www.cdc.gov/coronavirus/2019-ncov/vaccines/faq.html [employer] Patient Portal Access Instructions: Stay connected with your healthcare team and access your personal medical information anytime with the [employer] Patient Portal. Please follow the directions below to create your InforcePro account: 1.Access the email account you provided upon registration to the hospital/physician office.2.Look for an invitation email from [facility].3.Open the email and access the invitation link: AcceptInvitation to InforcePro.4.Fill in the required chase to create your account. To access your account, visit TiqIQ/[employer] InOneChart. Click the blue button labeled Access Patient [...] who you will allowto register on the [facility] [employer] Patient Portal for access to your information. You can also access the [facility] Patient Portal on the [facility] dina. Simply click on Patient Portal and then log into your account. If you would like to receive a full copy of your medical records, please contact the [facility] Medical Records Department by calling [phone], Saturday through Saturday between 8 a.m. and [...] Call your local pharmacy or go to http://AffinityClick.Qlue/3K3Pc4w to find one close to you.3.Make use of household items: Use cat litter or old coffee grounds to dispose medications if other options arenot available. Mix your drugs with these household products, seal them in an airtight container andthrow it into the garbage. Call [facility]: [phone] to be sure your drugs can be [...] CHART COPY. Signatures Patient Education Materials Hyperkalemia, Ntux-lo-Aihu Medication Leaflets My discharge plan and instructions have been reviewed and explained to me and I,AGUSTO MONSALVE understand my current condition and have read and understand these discharge instructions. I have received a written copy of the plan/instructions. If I have questions, I am aware that I should contact my d octor. Patient/Lead Material Handler Signature: Date/Time: Relationship to Patient: Witness Name/Signature: Date/Time: [facility] [id number] Note Discharge Instructions Thank you for allowing [facility] to assist you with your healthcare needs. The following is importantdischarge information regarding your hospital visit. Your Care Team DANTE VANG APRN-MICHAEL What to do next Follow Up Appointments Follow Up with Patient is discharged to [facility]. Please call report to [phone] When:Within 1-2 days Follow Up with KEKE Pennington When:Within 1-2 days Follow Up with DANTE VANG When:Within 1-2 days Where:[address] [facility] [place] [address] [phone] Business (1) The Following Activity and Diet [...] to receive it can visit one of [facility] vaccine clinics. There are many vaccine clinic locations within the [facility]. For locations and available times, please visit https://gettheshot.coronavirus.[place].gov/. It is important to note that some COVID mobile vaccine clinics are held outdoors and may be canceled in rainy or stormy conditions. To learn more about pediatric vaccinations (ages 5-11), we invite you to visit the [facility] webpage. https://www.[facility].org/pages/1174-Yyyry-Jlgdlykxqkg-Vnukfsbodx-Dlott-Hlk stions.htmlTo learn more about the COVID-19 vaccine, we invite you to visit the CDC website for a list of frequently asked questions.https://www.cdc.gov/coronavirus/2019-ncov/vaccines/faq.html [employer] Patient Portal Access Instructions: Stay connected with your healthcare team and access your personal medical information anytime with the [employer] Patient Portal. Please follow the directions below to create your InforcePro account: 1.Access the email account you provided upon registration to the hospital/physician office.2.Look for an invitation email from [facility].3.Open the email and access the invitation link: AcceptInvitation to InforcePro.4.Fill in the required chase to create your account. To access your account, visit Ti[employer]ub[employer]ort. Click the blue button labeled Access Patient Portal and then log in with the username and password that you created in the steps above. You will be able to view your test results, lab results, a summary of your visits, upcoming appointments and more. There is also a convenient messaging option where you can send secure messages to your p Negotiantvider. In addition, you will have the ability to download any documents or summaries to your computer and/or send the information securely to a physician. Remember that your healthcare information is confidential, so carefully consider who you will allowto register on the [facility] Patient Portal for access to your information. You can also access the [facility] Patient Portal on the [facility] dina. Simply click on Patient Portal and then log into your account. If you would like to receive a full copy of your medical records, please contact the [facility] Medical Records Department by calling [phone], Saturday through Saturday between 8 a.m. and [...] Call your local pharmacy or go to http://AffinityClick.Qlue/9D6Da8i to find one close to you.3.Make use of household items: Use cat litter or old coffee grounds to dispose medications if other options arenot available. Mix your drugs with these household products, seal them in an airtight container andthrow it into the garbage. Call [facility]: [phone] to be sure your drugs can be [...] that I should contact my d julioor. Patient/Lead Material Handler Signature: Date/Time: Relationship to Patient: Witness Name/Signature: Date/Time: [facility] [id number] Note Patient out of room for dialysis. Will reattempt assessment at a later time. Digitally Signed by MIRIAM Carey on 07/23/2024 03:34 PM [facility] [id number] Respiratory therapy Hospital Progress note Respiratory Therapy [...] by Lubna Billy on 07/23/2024 11:00 AM [facility] [id number] Nephrology Progress note Objective Vitals and Measurements [...] Every other day fluticasone nasal 0.05 mg/inh [place] 50 mcg 1 spray(s), Nostril, each, BID [...] TON VASQUEZ MD on 07/23/2024 10:25 AM [facility] [id number] Note Date of Service 07/22/2024 Hospitalist brief [...] KRYSTAL MARAVILLA MD on 07/22/2024 04:26 PM [facility] [id number] Evaluation + Plan noteExtracted from: Title:Clinical Document Author:ZAIN FERRO MD Date:07/22/24 [facility] Hospitalist History and Physical Date of Admission: patient is being admitted on July 22, 2024 Chief complaint: shortness of breath History of present illness: History is taken from talking with emergency room physician at [facility] [facility] Dr. julito ibarra as well as [...] They did discuss the case with nephrology production superintendent hydro. Past medical history: tobacco abuse, COPD, end-stage [...] : 9 ml/min/1.73sqm (07/22/24 02:36:00) N-Terminal proBNP: >35688 High (07/22/24 03:09:00) High Sensitivity Troponin I: 27 ng/L (07/22/24 02:36:00) SARS-CoV-2 PCR: Cepheid Neg (07/22/24 02:36:00) FLU A PCR: Cepheid Neg (07/22/24 02:36:00) FLU B PCR: Cepheid Neg (07/22/24 02:36:00) RSV PCR: Cepheid Neg (07/22/24 02:36:00) Blood Glucose, Capillary: 117 mg/dL High (07/22/24 03:45:00) Blood Glucose Testing Reason: Routine (07/22/24 03:45:00) No qualifying data available. Assessment and plan: Patient presents from [facility] emergency room on July 22, 2024 due [...] will need reconciled once they are verified [facility] 01-08-2025 Respiratory therapy Hospital Progress note Respiratory [...] Lubna Billy RT on 07/22/2024 10:05 AM [id number] Nephrology Consult note Date of Service 07-22 [...] TON VASQUEZ MD on 07/22/2024 11:25 AM [id number] History and physical note [facility] Hospitalist History and Physical Date of Admission: patient is being admitted on July 22, 2024 Chief complaint: shortness of breath History of present illness: History is taken from talking with emergency room physician at [facility] Dr. julito ibarra as well as [...] They did discuss the case with nephrology production superintendent hydro. Past medical history: tobacco abuse, COPD, end-stage [...] : 9 ml/min/1.73sqm (07/22/24 02:36:00) N-Terminal proBNP: >85754 High (07/22/24 03:09:00) High Sensitivity Troponin I: 27 ng/L (07/22/24 02:36:00) SARS-CoV-2 PCR: Cepheid Neg (07/22/24 02:36:00) FLU A PCR: Cepheid Neg (07/22/24 02:36:00) FLU B PCR: Cepheid Neg (07/22/24 02:36:00) RSV PCR: Cepheid Neg (07/22/24 02:36:00) Blood Glucose, Capillary: 117 mg/dL High (07/22/24 03:45:00) Blood Glucose Testing Reason: Routine (07/22/24 03:45:00) No qualifying data available. Assessment and plan: Patient presents from [facility] emergency room on July 22, 2024 due [...] ZAIN FERRO MD on 07/22/2024 06:48 AM [facility]01-08-2025 Nurse Progress note Hailey sister, phone number , can be told [employer]. [phone] Digitally Signed by William Hayward RN on 07/22/2024 03:53 AM [facility]01-08-2025 Note* Exam Date Time Procedure Performing Provider Status 07/22/24 2:50 AM XR Chest 1 View LEO CRUZ MD; A [facility] (Verified) [id number] ORIGINAL EXAMINATION: ONE XRAY VIEW OF THE [...] 07/22/2024 3:00:32 AM Ordering Provider: KIZZY MEDEROS [facility]01-08-2025 Note* Exam Date Time Procedure Performing Provider Status 07/22/24 2:44 AM EKG [ED AOH] - CV KIZZY MEDEROS DO; Auth (Verified) ECG Final Report BRADYCARDIA Right bundle branch block ABNORMAL ECG Electronic Signature: KIZZY MEDEROS DO 07/22/2024 02:53:05 [facility]07-21-2022 Evaluation note* Encounter Date Diagnosis Assessment Notes Treatment Notes Treatment Clinical Notes Jan, Cellulitis of lower leg (ICD-10 - L03.119) Jul, Chronic kidney disease, stage 5 (ICD-10 - N18.5) Jul, Type 2 diabetes mellitus with hyperglycemia (ICD-10 - E11.65) [facility] Other 04-07-2022 Evaluation note* Encounter Date Diagnosis [...] we do not have the discharge summary. [facility] Other 02-24-2022 Evaluation note* Encounter Date Diagnosis Assessment Notes Treatment Notes Treatment Clinical Notes Aug, Urinary tract infection, acute (ICD-10 - N39.0) Bactrim sent in error. Pharmacy contacted to cancel RX. Start Doxycyline. Culture ordered Aug, Dysuria (ICD-10 - R30.0) Aug, Other AMA form signed. Refused labs - states he will get today at his appointment from [facility]. Refused to go to ER for abnormal examination (foot wound, HTN). Discussed likely sepsis from UTI and foot wound. He agrees. States he will go after my 3PM appointment with [facility]. States he will already be in town [...] Sep, Essential (primary) hypertension (ICD-10 - I10) [facility] Other 12-29-2021 Evaluation note* Encounter Date Diagnosis Assessment Notes Treatment Notes Treatment Clinical Notes Jun, Intractable hiccups (ICD-10 - R06.6) Discussed regimen. Start muscle relaxer [facility] Other evaluation noteNo InformationAllvoices Other evaluation noteNo assessment information available [facility] Work Phone: History general Narrative - ReportedAllvoices Other History general Narrative - Reported* Type [...] debridement foot ulcer bilaterally 01/30 - 02/03 [facility] Other History general Narrative - Reported* Type [...] 01/30 - 02/03 Hospitalization History COVID 08/05 [facility] Other History general Narrative - Reported* Type [...] dise ase involving coronary bypass graft of [place] heart without angina pectoris Medical History Other [...] bilateral foot ulcers 12/22 Hospitalization History at [facility] for hypo tension. Discharge Dx: Sepsis, hypokalemia, dilated cardiomyopathy, debridement foot ulcer bilaterally and Grafix [address] Prime 01/30/2021-02/03/2021 Hospitalization History at [facility] - positive for C OVID. 07/24/2021 Hospitalization History at [facility] for gene ralized weakness and low blood pressure. Discharge Dx: Symptomatic anemia, ESRD, chronic systolic heart failure, hypomagnesemia, diabetic foot ulcer, T2 DM, GERD, diabetic neuropathy, COPD, benign hypertension 12/13/2020-12/22/2020 Hospitalization History at [facility]. Dx: Sarah sed fracture of right tibia and fibula 03/14/2020-03/16/2020 Hospitalization History at [facility] for gang jose of toe of right foot 05/10/2020-05/20/2020 Hospitalization History at [facility] for cellulitis o f right foot 04/24/2020- Hospitalization History at [facility] for shor tness of breath and abnormal lab, BNP 25,000, creatinine 5.8, troponin 0.32. Admission Dx: NSTEMI and dyspnea. 05/13/2019-06/01/2019 Hospitalization History at [facility] for abno rmal labs. Discharge Dx: Dyspnea on exertion, presumed new-onset CHF, TELMA on CKD stage III. 01/07/2019-01/10/2019 Hospitalization History at [facility] for left foot swelling. Discharge Dx: Left foot cellulitis with MRSA positive wound culture, s/p debridement 06/21/2018-06/25/2018 [facility] Other History general Narrative - Reported* Type [...] dise ase involving coronary bypass graft of [place] heart without angina pectoris Medical History Other [...] bilateral foot ulcers 12/22 Hospitalization History at [facility] for hypo tension. Discharge Dx: Sepsis, hypokalemia, dilated cardiomyopathy, debridement foot ulcer bilaterally and Grafix PL Prime 01/30/2021-02/03/2021 Hospitalization History at [facility] - positive for C OVID. 07/24/2021 Hospitalization History at [facility] for gene ralized weakness and low blood pressure. Discharge Dx: Symptomatic anemia, ESRD, chronic systolic heart failure, hypomagnesemia, diabetic foot ulcer, T2 DM, GERD, diabetic neuropathy, COPD, benign hypertension 12/13/2020-12/22/2020 Hospitalization History at [facility]. Dx: Sarah sed fracture of right tibia and fibula 03/14/2020-03/16/2020 Hospitalization History at [facility] for gang jose of toe of right foot 05/10/2020-05/20/2020 Hospitalization History at [facility] for cellulitis o f right foot 04/24/2020-10- Hospitalization History at [facility] for shor tness of breath and abnormal lab, BNP 25,000, creatinine 5.8, troponin 0.32. Admission Dx: NSTEMI and dyspnea. 05/13/2019-06/01/2019 Hospitalization History at [facility] for abno rmal labs. Discharge Dx: Dyspnea on exertion, presumed new-onset CHF, TELMA on CKD stage III. 01/07/2019-01/10/2019 Hospitalization History at [facility] for left foot swelling. Discharge Dx: Left foot cellulitis with MRSA positive wound culture, s/p debridement 06/21/2018-06/25/2018 Hospitalization History at [facility] for left foot swelling. Discharge DX: Necrotizing fascitits of lower leg 01/09/22-01/23/2022 [facility] Other History general Narrative - Reported* Type [...] dise ase involving coronary bypass graft of [place] heart without angina pectoris Medical History Other [...] plained diarrhea by Camden Dickey MD, at [facility]. Postop Dx: Normal colonoscopy 01/02/2018 Surgical History Incision and drainag e of left abscess by Flo Brown DO. Postop Dx: Left foot infection 06/24/2018 Surgical History Permcath insertion b y Marquis Hopkins MD, at [facility]. Postop Dx: TELMA on CKD 05/14/2019 Surgical History Coronary angiography w/left heart catheterization by Marquis Pierce MD, at [facility]. Postop Dx: Severe [place] CAD, moderately depressed left ventricular systolic function 05/18/2019 Surgical History CABG x3 with MEJIA to LAD by Tiago Gaytan MD, at [facility]. Postop Dx: Angina, CAD, non-STEMI, renal failure (on hemodialysis), COPD, tobacco abuse, alcohol abuse 05/27/2019 Surgical History Insertion nail intra medullary tibia by Deandre Mart III, MD. Postop Dx: Right distal tibia shaft fracture 03/13/2020 Surgical History Right tunneled venou s catheter replacement - IJ, by Lily Han MD, at [facility]. Postop Dx: ESRD 03/18/2020 Surgical History Hallux (plantar) amp utation, excision debridement diabetic ft ulcer, R ft and plantar 2nd toe by Rafa Ghosh DPM, at [facility]. Postop Dx: Postop Dx: 1) R hallux wet gangrene; 2) Diabetic R forefoot plantar ulcer; 3) Plantar 2nd toe ulcer w/necrotic tissue 05/13/2020 Surgical History R 5th toe amputation , 5th MT head resection, multiple soft-tissue / bony C&S specimens, 5th MT biopsy by Rafa Ghosh DPM, at [facility]. Postop Dx: 1) Diabetic foot ulcer; 2) Wet gangrene R 5th toe; 3) Osteomyelitis 5th toe 12/15/2020 Surgical History Bilateral foot ulcer debridemen t 02/01/2021 Surgical History Left below-knee ampu tation, revision and closure by Kim Garcia MD, at [facility]. Postop Dx: S/P open above-knee amputation for necrotizing fasciitis and gangrene of the foot 01/14/2022 Hospitalization History [facility] for left fo ot swelling. Discharge Dx: Left foot cellulitis with MRSA positive wound culture, s/p debridement 06/21/2018-06/25/2018 Hospitalization History [facility] for abnorma l labs. Discharge Dx: Dyspnea [...] DX: Necrotizing fasciitis of lower leg 01/09/2022-01/23/[address] Narrative No data available for this section [facility] Hospital Discharge instructions No data available for this section [facility] Reason for referral (narrative)No reason for referral information availableKaiser [facility]rem[facility] Work Phone: Reason for visit NarrativeER Follow up/ [facility] Other Chief Complaint and Reason for Visit [...] Muscle weakness (gen eralized) (M62.81) Referral Organization [facility] Referring Provider First Name [facility] Referring Provider Last Name Skidmore Referring Provider Specialty [facility] Referred Provider Specialty Physical The rapist Referral Priority Routine General Notes Gabriela Addison 01/2022 05:49:31 PM >[facility] [address] [place] [phone] referral faxed, their office will contact patient. Reason Needs evaluation for power chair (Physical therapy - [facility]) Will be starting PT with E[facility] - so please stay with [facility] if possible Diagnosis 1 Muscle weakness (gen eralized) (M62.81) Diagnosis 2 Physical debility (R 53.81) Referral Organization [facility] Referring Provider First Name Erik Referring Provider Last Name Skidmore Referring Provider Specialty [facility] Referred Provider Specialty Enoch oakes Referral Priority [...] Do you have a Healthcare Power of Receiving Associate? No December 30, 2024 4:47am Summary Purpose [...] in Jul.No InformationChart UpdateCM SNF discharge.Discharged from [place], Discuss power wheelchair., Has not seen Endo [...] Active Member Role Status Dates ERIK [facility]- Primary Care Provider Active Team Status: Inactive Member Role Status Dates ERIK [facility]- Primary Care Provider Active KIM QUEVEDO DO Attending Provider Active Team Status: Inactive Member Role Status Dates ERIK [facility] Primary Care Provider Active ROBERTO QUEVEDO DO Attending Provider Active Team Status: Inactive Member Role Status Dates E[facility]- Primary Care Provider Active Start: May 29, 2023 End: May 29, 2023 KIM QUEVEDO DO Attending Provider Active Start: May 29, 2023 End: May 29, 2023 Team Status: Inactive Member Role Status Dates ERI[facility]- Primary Care Provider Active Start: July 05, 2023 End: July 05, 2023 KIM QUEVEDO DO Attending Provider Active Start: July 05, 2023 End: July 05, 2023 Team Status: Inactive Member Role Status Dates ERIK [facility]- Primary Care Provider Active Start: July 11, 2023 End: July 11, 2023 KIM QUEVEDO DO Attending Provider Active Start: July 11, 2023 End: July 11, 2023 Team Status: Inactive Member Role Status Dates ERI[facility]- Primary Care Provider Active Start: October [...] section and content) DATE CREATED AUTHOR 10/11/2023 [facility] DATE CREATED AUTHOR AUTHOR'S ORGANAMY ATION 10/11/2023 [facility] DATE CREATED AUTHOR AUTHOR'S ORGANIZ ATION 12/28/2024 [facility] DATE CREATED AUTHOR AUTHOR'S ORGANIZ ATION 01/21/2025 [facility] DATE CREATED AUTHOR AUTHOR'S ORGANIZ ATION 01/23/2025 [facility] FOR RECORDS PERTAINING TO PATIENTS WHO ARE [...] BE BASED ON THE PRIMARY CLINICAL RECORDS. [facility]. provides no warranty or guarantee of the accuracy or completeness of information in this document.
== END | disposition home or self-care (01) ==
LOC: LABSPEC 15:13
PROVIDERS: PCP Hospitalist
DX: H92.10 Otorrhea, unspecified ear (principal)
CPT/HCPCS: 87070; 87075; 87205

== ENCOUNTER → 2025-02-01 | Outpatient (CLI) | payer MEDICAID, SELFPAY ==
--- NOTE | 2025-02-01 14:02 | CT_ITS ---
PROCEDURE: ORB SELLA POST FOSSA EAR W/O 02/01/2025 REASON FOR EXAM: LEFT EAR PAIN, R/O MASTOIDITIS TECHNIQUE: ORB SELLA POST FOSSA EAR W/O CONTRAST: None One or more dose reduction techniques were used (e.g., Automated exposure control, adjustment of the mA and/or kV according to patient size, use of iterative reconstruction technique). RADIATION DOSE SUMMARY: CTDlvol: 67 mGy DLP: 747 mGycm COMPARISON: None FINDINGS: Right: There is opacification of the inferior and mid air cells. Relative sparing of the more superior airs fills and antrum. Minimal soft tissue density in Prussak's space. No erosion is seen. Scutum is intact. Tympanic membrane is intact. The ossicular chain is intact. Semicircular canals are unremarkable. The cochlea is unremarkable. The course of the 7th cranial nerve is unremarkable. Small amount of cerumen is seen in the anterior inferior aspect of the external auditory canal. No fracture is seen. Temporomandibular joint is unremarkable. Left: There is complete opacification left mastoid air cells, mastoid antrum. Additionally, there is complete opacification of the middle ear cavity. No erosion is seen. The scutum is intact. The ossicular chain is intact. The tympanic membrane is not seen as a discrete structure. Semicircular canals are unremarkable. The cochlea is unremarkable. The course of the 7th cranial nerve is unremarkable. Mild thickening of the soft tissues of the external auditory canal. No fracture is seen. Temporomandibular joint is unremarkable CT/Orb Sella Post Fossa Ear w/o IMPRESSION: 1. Right: Mastoid effusion. Minimal soft tissue density Prussak's space on th e right possibly granulation tissue. No erosion seen. Mastoiditis and resolving otitis media should be considered. 2. Left: Mastoid effusion and middle ear effusion. Intact ossicular chain. N o erosion seen. Consider mastoiditis and otitis media. Additionally, there is some thickening of the soft tissues of the exter nal auditory canal. Consider otitis externa. Reading Location: [id number]
== END | disposition home or self-care (01) ==
LOC: CT 13:57
PROVIDERS: PCP Hospitalist
DX: H92.02 Otalgia, left ear (principal)
CPT/HCPCS: 70480

== ENCOUNTER → 2025-02-23 | Outpatient (CLI) | payer MEDICAID, SELFPAY ==
[2025-02-23 13:18] LABS: Hematocrit 33.1 % (40-54); Hemoglobin 10.1 g/dL (13.0-16.5); Immature Granulocytes Count 0.060 X10^3/uL (0.0-0.0); Mean Corp Hgb Conc 30.5 g/dL (32-36); Mean Corpuscular Volume 89.7 fL (80-94); Mean Platelet Vol. 9.6 fl (6.2-12.0); NRBC Flagged by Analyzer 0 % (0-5); Platelet Count 194 K/mm3 (150-450); RBC Distribution Width CV 15.9 % (11.6-14.6); RBC Distribution Width SD 52.9 fl (35.1-43.9); Red Blood Count 3.69 M/mm3 (4.6-6.2); White Blood Count 6.2 K/mm3 (4.4-11.0)
[2025-02-23 13:21] LABS: Ammonia 16.3 umol/L (16-60); Prothrombin Time (Protime)PT. 13.1 SECONDS (11.7-14.9)
[2025-02-23 13:59] LABS: Ferritin 1135 ng/mL (37-417)
[2025-02-23 14:24] LABS: Amylase 35 U/L (28-100); CRP 43.90 mg/L (0.0-3.0); Iron 39 ug/dL (65-175); Iron Binding Capacity,Unsat 67 ug/dL (228-428); LDH 241 U/L (87-241); Lipase 11 U/L (13-75); Triglycerides 136 mg/dL
[2025-02-23 14:42] LABS: Iron Binding Capacity,Total 107 ug/dL (250-450)
[2025-02-27 04:07] LABS: Albumin 3.4 g/dL (2.9-4.4); Angiotensin Convert Enzyme 52 U/L (14-82); Anti-Smooth Muscle ABS 4 Units (0-19); Carbohydrate Ag 19-9 2261 7 U/mL (0-35); Carcinoembryonic Antigen 2139 1.9 ng/mL (0.0-4.7); Copper, Serum or Plasma 134 ug/dL (69-132); Gamma Globulin 1.4 g/dL (0.4-1.8); HEPATITIS B SURFACE AG Negative (Negative); Hep C Antibodies Non Reactive (Non Reactive); IMMUNOFIXATION RESULT,S Comment: (.); IgG, Quant 1447 mg/dL (603-1613); Immunoglobulin A 252 mg/dL (90-386); Immunoglobulin G, Subclass 1 818 mg/dL (248-810); Immunoglobulin G, Subclass 2 167 mg/dL (130-555); Immunoglobulin G, Subclass 3 102 mg/dL (15-102); Immunoglobulin G, Subclass 4 17 mg/dL (2-96); Immunoglobulin M 147 mg/dL (20-172); PROEL- TOTAL PROTEIN 6.9 g/dL (6.0-8.5)
== END | disposition home or self-care (01) ==
LOC: LAB 12:23
PROVIDERS: Internal Medicine Cardiovascular Disease; PCP Hospitalist; Referring Provider Internal Medicine Gastroenterology; Visit Provider Internal Medicine Gastroenterology
DX: K74.60 Unspecified cirrhosis of liver (principal)
CPT/HCPCS: 36415; 80074; 82105; 82140; 82150; 82164; 82378; 82390; 82525; 82728; 82784; 82787; 83036; 83516; 83540; 83550; 83615; 83690; 84165; 84443; 84478; 85025; 85610; 85652; 86140; 86255; 86301; 86334

== ENCOUNTER → 2025-02-24 | Outpatient (CLI) | payer MEDICAID, SELFPAY ==
--- NOTE | 2025-02-24 11:57 | MRI_ITS ---
PROCEDURE: UPPER EXT JOINT ONLY(ROUTINE) 02/24/2025 REASON FOR EXAM: PAIN, WEAKNESS TECHNIQUE: T2 and PD images only UPPER EXT JOINT ONLY(ROUTINE) Multiplanar and multisequence images were obtained without IV contrast administration. COMPARISON: COMPARISON: December 03, 2024 x-ray FINDINGS: Bone Marrow: There multiple lobulated T2 signal lesions in the humerus with lesion in the humeral head measuring 2.0 x 1.7 cm, in the head neck junction measuring 2.2 by 1.8 cm, and in the proximal diaphysis measuring 3.4 by 1.8 cm, incompletely visualized. AC joint: There is moderate AC joint hypertrophy with a trace effusion, and no evidence of separation. There is a type 2 acromion. Rotator cuff: There is moderate supraspinatus and infraspinatus muscular atrophy. There is moderate distal supraspinatus, infraspinatus, and severe distal subscapularis tendinopathy without full- thickness tear or retraction. The teres minor appears intact. Labrum: There is a tear of the labrum from the 10 o'clock 2 o'clock position. There is no paralabral cyst. Biceps tendon: The biceps tendon is present in the biceps tendon groove without evidence of avulsion. There is severe tendinopathy of the intra-articular portion of the biceps tendon. Effusion: There is a moderate joint effusion. There is a trace amount of fluid in the subacromial subdeltoid bursa, with bursitis. MRI/Upper Ext Joint Only(Routine) IMPRESSION: There multiple lobulated T2 signal lesions in the humerus with lesion in the hu meral head measuring 2.0 x 1.7 cm, in the head neck junction measuring 2.2 by 1.8 cm, and in the proximal diaphysis measuring 3.4 by 1.8 cm, incompletely visualized. Pre and postcontrast T1 images are recommended for further characterization. There is moderate AC joint hypertrophy with a trace effusion, and no evidence o f separation. There is moderate supraspinatus and infraspinatus muscular atrophy. There is moderate distal supraspinatus, infraspinatus, and severe distal subsca pularis tendinopathy without full-thickness tear or retraction. There is a tear of the labrum from the 10 o'clock 2 o'clock position. There is severe tendinopathy of the intra-articular portion of the biceps tendo n. There is a moderate joint effusion. There is a trace amount of fluid in the subacromial subdeltoid bursa, with burs itis. Reading Location: [id number]
== END | disposition home or self-care (01) ==
LOC: OPMRI 11:43
PROVIDERS: PCP Hospitalist; Referring Provider Orthopaedic Surgery Sports Medicine; Visit Provider Orthopaedic Surgery Sports Medicine
DX: M25.512 Pain in left shoulder (principal)
CPT/HCPCS: 73221